=== PATIENT | male | born 1950 | race Caucasian/White ===

== ENCOUNTER 2023-05-25 15:25 | Outpatient (OUT) | payer MEDICARE, SELFPAY ==
[2023-05-25 15:44] LABS: Basophils Absolute Auto 0.1 10^3/uL (0.0-0.1); Basophils Percent Auto 0.8 % (0.2-2.0); Eosinophils Absolute Auto 0.6 10^3/uL (0.0-0.7); Eosinophils Percent Auto 5.9 % (0.9-7.0); Hematocrit 40.6 % (42.0-54.0); Hemoglobin 12.9 g/dL (14.0-18.0); Immature Granulocytes Pct Auto 0.9 % (0.0-0.5); Lymphocytes Absolute Auto 2.7 10^3/uL (1.2-3.8); Lymphocytes Percent Auto 25.1 % (20.5-60.0); Mean Corpuscular HGB Conc 31.8 g/dL (29.9-35.2); Mean Corpuscular Hemoglobin 28.7 pg (25.9-34.0); Mean Corpuscular Volume 90.2 fL (80.0-94.0); Mean Platelet Volume 11.5 fL (9.5-13.5); Monocytes Absolute Auto 0.7 10^3/uL (0.3-0.8); Monocytes Percent Auto 6.3 % (1.7-12.0); Neutrophils Absolute Auto 6.5 10^3/uL (1.4-6.5); Platelet Count 176 10^3/uL (150-450); Red Cell Distribution Width 15.2 % (11.0-15.0); White Blood Count 10.7 10^3/uL (4.0-11.0)
[2023-05-25 16:23] LABS: Estimated Average Glucose 123 mg/dL; Glycohemoglobin A1C 5.9 % (4.5-6.2)
[2023-05-25 16:33] LABS: Microalbumin Urine Random 21.6 mg/dL (<=30.0)
[2023-05-25 16:39] LABS: Alanine Aminotransferase 19 U/L (16-63); Albumin Globulin Ratio 0.7; Albumin Level 3.1 g/dL (3.4-5.0); Alkaline Phosphatase 114 U/L (46-116); Anion Gap 13.5; Aspartate Amino Transferase 15 U/L (15-37); Bilirubin Direct 0.1 mg/dL (0.0-0.2); Bilirubin Total 0.3 mg/dL (0.2-1.0); Calcium 8.8 mg/dL (8.5-10.1); Carbon Dioxide 25.8 mmol/L (21.0-32.0); Chloride 104 mmol/L (98-107); Chol HDL Ratio 2.9; Cholesterol 122 mg/dL (<=200); Estimated GFR (African America >60 (>=60); Estimated GFR (Non-African Ame >60 (>=60); Globulin 4.3 g/dL; Glucose 104 mg/dL (74-106); HDL Cholesterol 42 mg/dL (40-60); LDL Cholesterol Calculated 53.2 mg/dL; Potassium 4.3 mmol/L (3.5-5.1); Prostate Specific Antigen Scrn 0.57 ng/mL (<=4.00); Sodium 139 mmol/L (136-145); Total Protein 7.4 g/dL (6.4-8.2); Triglycerides 134 mg/dL (<=150); VLDL CHOLESTEROL 26.8 mg/dL
== END 2023-05-25 15:26 | disposition home or self-care (01) ==
LOC: LAB 15:29
PROVIDERS: PCP Family Medicine; Visit Provider Family Medicine
DX: E11.65 Type 2 diabetes mellitus with hyperglycemia (principal); E55.9 Vitamin D deficiency, unspecified; I10 Essential (primary) hypertension; Z79.899 Other long term (current) drug therapy; Z12.5 Encounter for screening for malignant neoplasm of prostate
CPT/HCPCS: 36415; 80048; 80061; 80076; 82043; 82306; 83036; 85025; G0103

== ENCOUNTER 2023-09-14 12:38 | Outpatient (OUT) | payer MEDICARE, SELFPAY ==
[2023-09-14 12:58] LABS: Basophils Absolute Auto 0.1 10^3/uL (0.0-0.1); Basophils Percent Auto 1.3 % (0.2-2.0); Eosinophils Absolute Auto 0.7 10^3/uL (0.0-0.7); Eosinophils Percent Auto 7.3 % (0.9-7.0); Hematocrit 40.4 % (42.0-54.0); Hemoglobin 12.5 g/dL (14.0-18.0); Immature Granulocytes Pct Auto 1.1 % (0.0-0.5); Lymphocytes Absolute Auto 2.6 10^3/uL (1.2-3.8); Lymphocytes Percent Auto 27.2 % (20.5-60.0); Mean Corpuscular HGB Conc 30.9 g/dL (29.9-35.2); Mean Corpuscular Hemoglobin 28.3 pg (25.9-34.0); Mean Corpuscular Volume 91.4 fL (80.0-94.0); Mean Platelet Volume 11.6 fL (9.5-13.5); Monocytes Absolute Auto 0.5 10^3/uL (0.3-0.8); Neutrophils Absolute Auto 5.5 10^3/uL (1.4-6.5); Neutrophils Percent Auto 58.1 % (43.0-75.0); Platelet Count 174 10^3/uL (150-450); Red Blood Count 4.42 10^6/uL (4.70-6.10); Red Cell Distribution Width 15.8 % (11.0-15.0); White Blood Count 9.4 10^3/uL (4.0-11.0)
[2023-09-14 13:25] LABS: Alanine Aminotransferase 15 U/L (16-63); Albumin Globulin Ratio 0.7; Alkaline Phosphatase 109 U/L (46-116); Anion Gap 10.8; Aspartate Amino Transferase 16 U/L (15-37); BUN Creatinine Ratio 16.7; Bilirubin Total 0.3 mg/dL (0.2-1.0); Calcium 9.1 mg/dL (8.5-10.1); Carbon Dioxide 29.5 mmol/L (21.0-32.0); Chloride 105 mmol/L (98-107); Estimated GFR (African America >60 (>=60); Estimated GFR (Non-African Ame 60 (>=60); Globulin 4.1 g/dL; Glucose 124 mg/dL (74-106); Potassium 4.3 mmol/L (3.5-5.1); Sodium 141 mmol/L (136-145); Total Protein 7.1 g/dL (6.4-8.2)
== END 2023-09-14 12:39 | disposition home or self-care (01) ==
LOC: LAB 12:38
PROVIDERS: PCP Family Medicine; Visit Provider Internal Medicine
DX: R19.7 Diarrhea, unspecified (principal)
CPT/HCPCS: 36415; 80053; 85025

== ENCOUNTER 2023-09-23 19:30 | Outpatient (REF) | payer MEDICARE, SELFPAY ==
[2023-09-24 16:53] LABS: C. Difficile PCR NEGATIVE (NEGATIVE)
[2023-09-30 17:12] LABS: Ova + Parasite Exam Final report (.)
== END 2023-09-23 19:31 | disposition home or self-care (01) ==
LOC: LAB 19:30
PROVIDERS: PCP Family Medicine; Visit Provider Internal Medicine
DX: R19.7 Diarrhea, unspecified (principal)
CPT/HCPCS: 87045; 87177; 87209; 87493

== ENCOUNTER 2024-03-14 15:40 | Outpatient (OUT) | payer MEDICARE, SELFPAY ==
[2024-03-14 16:09] LABS: Basophils Absolute Auto 0.1 10^3/uL (0.0-0.1); Basophils Percent Auto 0.9 % (0.2-2.0); Eosinophils Absolute Auto 0.7 10^3/uL (0.0-0.7); Eosinophils Percent Auto 4.5 % (0.9-7.0); Hematocrit 41.9 % (42.0-54.0); Hemoglobin 13.7 g/dL (14.0-18.0); Immature Granulocytes Abs Auto 0.16 10^3/uL (0.00-0.03); Immature Granulocytes Pct Auto 1.1 % (0.0-0.5); Lymphocytes Absolute Auto 3.8 10^3/uL (1.2-3.8); Lymphocytes Percent Auto 25.9 % (20.5-60.0); Mean Corpuscular HGB Conc 32.7 g/dL (29.9-35.2); Mean Corpuscular Hemoglobin 29.1 pg (25.9-34.0); Mean Corpuscular Volume 89.1 fL (80.0-94.0); Mean Platelet Volume 12.1 fL (9.5-13.5); Monocytes Absolute Auto 0.8 10^3/uL (0.3-0.8); Monocytes Percent Auto 5.7 % (1.7-12.0); Neutrophils Absolute Auto 9.1 10^3/uL (1.4-6.5); Neutrophils Percent Auto 61.9 % (43.0-75.0); Platelet Count 174 10^3/uL (150-450); Red Cell Distribution Width 15.7 % (11.0-15.0); White Blood Count 14.7 10^3/uL (4.0-11.0)
[2024-03-14 16:32] LABS: Anion Gap 17.1; BUN Creatinine Ratio 14.1; Calcium 9.3 mg/dL (8.5-10.1); Carbon Dioxide 23.6 mmol/L (21.0-32.0); Chloride 104 mmol/L (98-107); Estimated GFR (African America 39 (>=60); Estimated GFR (Non-African Ame 32 (>=60); Glucose 135 mg/dL (74-106); Potassium 3.7 mmol/L (3.5-5.1); Sodium 141 mmol/L (136-145)
[2024-03-14 16:52] LABS: Estimated Average Glucose 126 mg/dL
== END 2024-03-14 15:41 | disposition home or self-care (01) ==
PROVIDERS: PCP Family Medicine; Visit Provider Family Medicine
DX: E11.65 Type 2 diabetes mellitus with hyperglycemia (principal); N18.31 Chronic kidney disease, stage 3a; Z79.899 Other long term (current) drug therapy; I10 Essential (primary) hypertension
CPT/HCPCS: 36415; 80048; 83036; 85025

== ENCOUNTER 2024-12-29 15:31 | Outpatient (OUT) | payer MEDICARE, SELFPAY ==
--- OUTSIDE RECORDS SUMMARY | 2024-12-29 15:38 | XMS_ITS | Encounter Summary ---
Author Organization [facility] Address [address] [place] [address] Phone Care Team Providers Care Robot Programmer Name Role Phone Mk Nichole MD Primary Care Provider + Lesia Rhodes MD Unavailable Reason for Visit * Reason Onset Date Comments Med Refill 12/29/2024 Encounter Details Date Type Department Care Team (Late st Contact Info) Description 12/29/2024 Refill [facility] [address] [phone] Luna Maldonado RN Essential hypertension Social History Tobacco Use Types Packs/Day Years Used Date Smoking Tobacco: Every Day Cigarettes Smokeless Tobacco: Never Alcohol Use Standard Drinks/Week Comments Never 0 (1 standard drink = 0.6 oz pur e alcohol) PHQ-2 Answer Date Recorded Patient Health Questionnaire-2 Score 3 07/23/2022 Sex and Gender Information Value Date Recorded Sex Assigned at Not on file Legal Sex Male 6:45 PM EST Gender Identity Not on file Sexual Orientation Not on file documented as of this encounter Miscellaneous Notes * Telephone Encounter - Luna Maldonado RN - 12/29/2024 2:07 PM EDT Daughter, Amanda, phones requesting refills for valsartan and metoprolol. Reports pt is taking 25 mgmetoprolol. States that dose was clarified back in september that he takes 25 mg. However, when niece brought pt to appt in October she brought the incorrect med list and said pt was taking 50 mg. Daughterreports pt has continued to take 25 and has not taken 50 for many months. Orders prepped and sent to Cristina Chen NP for signature documented in this encounter Plan of Treatment Upcoming Encounters Date Type Department Care Team (Late st Contact Info) Description 05/16/2025 10:40 AM EDT Office Visit [facility] [address] [facility] [address] [place] [address] Bonifacio Stern DO [address] [facility] [address] [place], [place] [id number] documented as of this encounter Visit Diagnoses Diagnosis Essential hypertension Unspecified essential hypertension documented in this encounter Additional Health Concerns Assessment Noted Time PHQ-9 Depression Total Score: 11 023 12:18 PM EST A fall risk assessment has been complete d for the patient 11/14/2024 10:16 AM EDT documented as of this encounter Care Teams Robot Programmer Relationship Specialty Start Date End Date Mk Nichole MD [address] [place] [address] PCP - General Family Medicine 11/09/23 Lesia Rhodes MD [address] [facility] [address] [place] [address] Surgeon Gastroenterology 05/19/24 documented as of this encounter
--- OUTSIDE RECORDS SUMMARY | 2024-12-29 15:38 | XMS_ITS | Encounter Summary ---
Author Organization [facility] Address [address] [place] [address] Phone Care Team Providers Care Sanitation Director Name Role Phone Mk Nichole MD Primary Care Provider + Mk Nichole MD Primary Care Provider + Lesia Rhodes MD Unavailable Encounter Details Date Type Department Care Team (Late st Contact Info) Description 08/03/2021 Orders Only [facility] [address] [place] [address] Conversion, Onbase Social History Tobacco Use Types Packs/Day Years Used Date Smoking Tobacco: Never Assessed Sex and Gender Information Value Date Recorded Sex Assigned at Not on file Legal Sex Male 6:45 PM EST Gender Identity Not on file Sexual Orientation Not on file documented as of this encounter Plan of Treatment Upcoming Encounters Date Type Department Care Team (Late st Contact Info) Description 05/16/2025 10:40 AM EDT Office Visit [facility] [address] [facility] [address] [place] [address] Bonifacio Stern DO [address] [facility] [address] [place], [place] [phone] Scheduled Orders Name Type Priority Associated Diagnoses Orde r Schedule OUTSIDE LAB SCAN Lab Ordered: 08/03/2021 OUTSIDE LAB SCAN Lab Ordered: 08/03/2021 OUTSIDE LAB SCAN Lab Ordered: 08/03/2021 documented as of this encounter Visit Diagnoses Not on filedocumented in this encounter Care Teams Sanitation Director Relationship Specialty Start Date End Date Mk Nichole MD PCP - General 10/15/21 11/08/23 Mk Nichole MD [address] [place] [address] PCP - General Family Medicine 11/09/23 Lesia Rhodes MD [address] [id number] Surgeon Gastroenterology 05/19/24 documented as of this encounter
--- OUTSIDE RECORDS SUMMARY | 2024-12-29 15:38 | XMS_ITS | Clinical Summary ---
Author Organization [facility] Address [address] [place] [address] Phone Care Team Providers Care Solderer Furnace Name Role Phone Mk Nichole MD Primary Care Provider + Lesia Rhodes MD Unavailable Allergies Active Allergy Reactions Criticality Noted Date Comments Codeine Palpitations Low 04/20/2023 Metformin Diarrhea 2023 Prednisone Other 2023 Suicidal ideation Medications cholecalciferol (Vitamin D-3) 50 MCG (1999) tablet Take 2 tablets (100 mcg) by mouth once daily. 2 Active esomeprazole (NexIUM) [address] capsule Take 1 capsule (40 mg) by mouth 2 times a day. 3 Active FeroSuL 325 mg (65 mg iron) tablet Take 1 tablet (325 mg) by mouth once daily. 3 Active HYDROcodone-acetami nophen (Crane) 5-325 mg tablet Take 1 tablet by mouth every 4 hours if needed for moderate pain (4 - 6) or severe pain (7 - 10). TAKE 1 TABLET EVERY 4 TO 6 HOURS NEEDED FOR PAIN. Active methocarbamol (Robaxin) 750 mg tablet Take 1 tablet (750 mg) by mouth 3 times a day. Active PARoxetine (Paxil) 20 mg tablet Take 1 tablet (20 mg) by mouth once daily. Active polyethylene glycol (Glycolax, Miralax) 17 gram/dose powder Mix 17 g of powder and drink once daily as needed. 3 Active tolterodine LA (Detrol LA) 2 mg 24 hr capsule Take 1 capsule (2 mg) by mouth once a day on Wednesday, Wednesday, and Wednesday. Do not crush, chew, or split. Active valsartan (Diovan) 160 mg tabletIndications:E ssential hypertension Take 1 tablet (160 mg) by mouth 2 times a day. 180 tablet 3 4 Active rosuvastatin (Crestor) 20 mg tabletIndications:T wo-vessel coronary artery disease,Mixed hyperlipidemia Take 1 tablet (20 mg) by mouth once daily. 90 tablet 3 4 Active clopidogrel (Plavix) 75 mg tabletIndications:S tatus post non-ST elevation myocardial infarction (NSTEMI) Take 1 tablet (75 mg) by mouth once daily. 90 tablet 3 4 Active potassium chloride ER (Micro-K) 10 mEq ER capsuleIndications: Two-vessel coronary artery disease Take 1 capsule (10 mEq) by mouth once daily. 90 capsule 3 4 Active metoprolol succinate XL (Toprol-XL) 50 mg 24 hr tablet Take 1 tablet (50 mg) by mouth once daily. Do not crush or chew. Active metFORMIN (Glucophage) 500 mg tablet Take 1 tablet (500 mg) by mouth 2 times daily (morning and late afternoon). Active amLODIPine (Norvasc) 5 mg tablet Take 1 tablet (5 mg) by mouth once daily. Active Active Problems Problem Noted Date Diagnosed Date Neuropathy 05/10/2024 BMI 28.0-28.9,adult 2023 Assessment & Plan (11/14/2024 1:31 PM EDT): Reviewed the merits of healthy lifestyle choices on overall cardiovascular health. AAA (abdominal aortic aneurysm) 04/20/2023 Assessment & Plan (11/14/2024 1:28 PM EDT): Routinely with vascular August 2024 ultrasound stable infrarenal aneurysm, EVAR no leak Current smoker 04/20/2023 Assessment & Plan (11/14/2024 10:35 AM EDT): 1 pack per day In past: quit for 5 years 'cold ' Continued every day tobacco use. Have reviewed the negative cardiovascular impact of nicotine. Continues to decline pharmacological assistance. 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 04/20/2023 Status post non-ST elevation myocardial infarcti on (NSTEMI) 04/20/2023 Two-vessel coronary artery disease 04/20/2023 Assessment & Plan (11/14/2024 1:30 PM EDT): Prior multivessel PCI Most recent PCI: October 2018 NSTEMI Mid LAD PCI/[place] Proximal LAD had patent stent RCA patent stent mid through distal Diagonal 100% Distal circumflex 80% was a very small vessel PLV 50-60% EF 60% July 2021 cardiac catheterization Diffuse small vessel disease Proximal/mid LAD with patent stent RCA with patent stent There was progression of PLV proximal/mid 70% Current daily activity less than 4 METS without concerning symptoms Choledocholithiasis 04/20/2023 PVD (peripheral vascular disease) 04/20/2023 Resolved Problems Problem Noted Date Diagnosed Date Resolved Date Chronic obstructive pulmonary disease (Multi) 04/20/20 23 11/14/2024 Diabetes mellitus (Multi) 04/20/2023 Overweight 04/20/2023 2023 Encounters Date Type Department Care Team Description 12/29/2024 [facility] [place] [address] [facility] [address] [place] [address] Luna Maldonado RN Essential hypertension 11/14/2024 10:00 AM EDT Office Visit [place] [id number] [facility] [address] [place] [address] Cristina Calles, OLIVE PACKER-SCOURING TRAIN OPERATOR CHIEF Essential hypertension (Primary Dx); Two-vessel coronary artery disease; Type 2 diabetes mellitus without complication, without long-term current use of insulin; Mixed hyperlipidemia; Abdominal aortic aneurysm (AAA), unspecified part, unspecified whether ruptured; BMI 28.0-28.9,adult; Current smoker 11/14/2024 Travel 10/02/2024 Telephone [facility] [address] [place] [phone] Luna Maldonado RN from Last 3 Months Immunizations Immunization Administration Dates Next Due Flu vaccine, quadrivalent, recombinant, preservative free, adult (FLUBLOK) 07/02/2022 Influenza, Unspecified 05/19/2018,2015,05/19/2015,05/19,07/19/2012,07/19/2010 Pfizer COVID-19 vaccine, biv alent, age 12 years and older (30 mcg/0.3 mL) 07/03/2022 Pneumococcal polysaccharide vaccine, 23-valent, age 2 years and older (PNEUMOVAX 23) 02/17/2016,07/19/2006 Family History Medical History Relation Name Comments Heart disease Brother coronary artery bypass graft Brother acute myocardial Father Diabetes type II Mother Relation Name Status Comments Brother Father Mother Social History Tobacco Use Types Packs/Day Years Used Date Smoking Tobacco: Every Day Cigarettes Smokeless Tobacco: Never Tobacco Cessation:Ready to Q uit: Not Asked; Counseling Given: Not Answered Alcohol Use Standard Drinks/Week Comments Never 0 (1 standard drink = 0.6 oz pur e alcohol) PHQ-2 Answer Date Recorded Patient Health Questionnaire-2 Score 3 07/23/2022 Sex and Gender Information Value Date Recorded Sex Assigned at Not on file Legal Sex Male 6:45 PM EST Gender Identity Not on file Sexual Orientation Not on file Last Filed Vital Signs Vital Sign Reading Time Taken Comments Blood Pressure 110/80 11/14/2024 10:17 AM EDT Pulse 62 11/14/2024 10:17 AM EDT Temperature 36.1 C (96.9 F) 11/19/2022 1:07 PM EDT Respiratory Rate 16 10/13/2022 1:11 PM EDT Oxygen Saturation 99% 10/13/2022 1:11 PM EDT Inhaled Oxygen Concentration - - Weight 80.7 kg (178 lb) 11/14/2024 10:17 AM EDT Height 167.6 cm (5' 6 ) 11/14/2024 10:17 AM EDT Body Mass Index 28.73 11/14/2024 10:17 AM EDT Plan of Treatment Upcoming Encounters Date Type Department Care Team (Late st Contact Info) Description 05/16/2025 10:40 AM EDT Office Visit [facility] [address] [facility] [address] [place] [address] Bonifacio Stern, [address] [facility] [address] [place], [place] [id number] Health Maintenance Due Date Last Done Comments CT Colonography 1950 Diabetes: Hemoglobin A1C 1950 Diabetes: Urine Protein Screening 1950 FIT-DNA (Cologuard) 1950 FIT 1950 Lipid Panel 1950 Medicare Annual Wellness Visit (AWV) 1950 Sigmoidoscopy 1950 Diabetes: Retinopathy Screening 1960 Hepatitis C Screening 1968 DTaP/Tdap/Td Vaccines (1 - Tdap) 1972 Zoster Vaccines (1 of 2) 2000 RSV High Risk: (Elderly (60+) or Population) (1 - Risk 60-74 years 1-dose series) 2010 Abdominal Aortic Aneurysm (AAA) Screening 11/10/2015 Pneumococcal Vaccine (2 of 2 - PCV) 02/16/2017 02/17/2016, 07/19/2006 COVID-19 Vaccine (2 - season) 2024 07/03/2022 Influenza Vaccine (Season Ended) 2025 07/02/2022, 05/19/2018, 04/18/2016, Additional history exists Colonoscopy 01/18/2034 01/19/2024 Colorectal Cancer Screening 01/18/2034 Irritable Bowel Syndrome Discontinued 12/17/2022, 09/17 HIB Vaccines Aged Out No longer eligi ble based on patient's age to complete this topic HPV Vaccines Aged Out No longer eligi ble based on patient's age to complete this topic Hepatitis A Vaccines Aged Out No long er eligible based on patient's age to complete this topic Hepatitis B Vaccines Aged Out No long er eligible based on patient's age to complete this topic IPV Vaccines Aged Out No longer eligi ble based on patient's age to complete this topic Meningococcal Vaccine Aged Out No becca vero eligible based on patient's age to complete this topic Rotavirus Vaccines Aged Out No longer eligible based on patient's age to complete this topic Procedures Procedure Name Priority Date/Time Associated Diagnosis Comments ERCP Routine 12/17/2022 9:41 AM EDT from Last 3 Months or Most Recently Relevant to Health Maintenance Results * Endoscopic Retrograde Cholangiopancreatography (ERCP) (12/17/2022 9:41 AM EDT) Anatomical Region Laterality Modality Endoscopy 12/17/2022 9:41 AM EDT Narrative 12/17/2022 10:03 AM EDT Patient Name: Gopal Irving Procedure Date: 12/17/2022 9:41 AM Date of : 1950 Admit Type: Outpatient Site: [facility] Ethnicity: Not or Race: White Attending MD: Alyssia Acuna MD, [id number] Procedure: ERCP Indications: Follow-up of bile duct stone(s), Follow-up of ascending cholangitis, Biliary stent removal Patient Profile: This is a 72 year old male. Refer to note in patient chart for documentation of history and physical. Providers: Alyssia Acuna MD (Doctor), Jeevan Mcgovern RN (Nurse), Balbina Schuler, Corporate Safety Manager Referring: Medicines: General Anesthesia Complications: No immediate complications. Procedure: Pre-Anesthesia Assessment: - Prior to the procedure, a History and Physical was performed, and patient medications and allergies were reviewed. The patient is competent. The risks and benefits of the procedure and the sedation options and risks were discussed with the patient. All questions were answered and informed consent was obtained. Patient identification and proposed procedure were verified by the physician, the nurse, the anesthesiologist, the forensics team director and the lead quality control technician in the procedure room. Mental Status Examination: alert and oriented. Airway Examination: normal oropharyngeal airway and neck mobility. Respiratory Examination: clear to auscultation. CV Examination: normal. Prophylactic Antibiotics: The patient does not require prophylactic antibiotics. Prior Anticoagulants: The patient has taken no anticoagulant or antiplatelet agents except for aspirin. ASA Grade Assessment: III - A patient with severe systemic disease. After reviewing the risks and benefits, the patient was deemed in satisfactory condition to undergo the procedure. The anesthesia plan was to use general anesthesia. Immediately prior to administration of medications, the patient was re-assessed for adequacy to receive sedatives. The heart rate, respiratory rate, oxygen saturations, blood pressure, adequacy of pulmonary ventilation, and response to care were monitored throughout the procedure. The physical status of the patient was re-assessed after the procedure. After obtaining informed consent, the scope was passed under direct vision. Throughout the procedure, the patient's blood pressure, pulse, and oxygen saturations were monitored continuously. The duodenoscope was introduced through the mouth, and advanced to the duodenum and used to inject contrast into the bile duct. The ERCP was accomplished without difficulty. The patient tolerated the procedure well. Findings: A sharepoint solutions architect film of the abdomen was obtained. Surgical clips, consistent with a previous cholecystectomy, were seen in the area of the right upper quadrant of the abdomen. A biliary stent was visible on the sharepoint solutions architect film. The esophagus was successfully intubated under direct vision. The scope was advanced from the mouth to the duodenum. The pharynx, larynx and associated structures, as well as the upper GI tract, were normal. One plastic biliary stent originating in the biliary tree was emerging from the major papilla. The stent was partially occluded. A biliary sphincterotomy had been performed. The sphincterotomy appeared open. One stent was removed from the biliary tree using a snare. A 0.025 inch x 270 cm angled Visiglide wire was passed into the biliary tree. The 11.5 mm balloon was passed over the guidewire and the bile duct was then deeply cannulated. Contrast was injected. I personally interpreted the bile duct images. Ductal flow of contrast was adequate. Image quality was adequate. Contrast extended to the entire biliary tree. Neither stones nor ductal dilatation were present in the main bile duct. The biliary tree was swept with an 11.5 mm balloon starting at the right intrahepatic duct(s). Sludge was swept from the duct. Final balloon sweeps were negative. Estimated Blood Loss: Estimated blood loss: none. Impression: - One partially occluded stent from the biliary tree was seen in the major papilla. Removed. - Prior biliary sphincterotomy appeared open. - The biliary tree was swept and sludge was found. Recommendation: - Patient has a contact number available for emergencies. The signs and symptoms of potential delayed complications were discussed with the patient. Return to normal activities tomorrow. Written discharge instructions were provided to the patient. - Written discharge instructions were provided to the patient. - Resume previous diet. - Continue present medications. Procedure Code(s): --- Professional --- 58718, Endoscopic retrograde cholangiopancreatography (ERCP); with removal of foreign body(s) or stent(s) from biliary/pancreatic duct(s) 76474, Endoscopic retrograde cholangiopancreatography (ERCP); with removal of calculi/debris from biliary/pancreatic duct(s) 34406, Endoscopic catheterization of the biliary ductal system, radiological supervision and interpretation Diagnosis Code(s): --- Professional --- T85.590A, Other mechanical complication of bile duct prosthesis, initial encounter K80.30, Calculus of bile duct with cholangitis, unspecified, without obstruction Z46.59, Encounter for fitting and adjustment of other gastrointestinal appliance and device K83.09, Other cholangitis CPT copyright 2021 [employer]. All rights reserved. The codes documented in this report are preliminary and upon refrigerating technician review may be revised to meet current compliance requirements. Attending Participation: I personally performed the entire procedure. MD Alyssia Tapia MD 12/17/2022 10:02:50 AM This report has been signed electronically. Number of Addenda: 0 Note Initiated On: 12/17/2022 9:41 AM Total Procedure Duration Time 0 hours 9 minutes 21 seconds Procedure Note Alyssia Acuna MD - 06/13/2024 Patient Name: Gopal Irving Procedure Date: 12/17/2022 9:41 AM Date of : 1950 Admit Type: Outpatient Site: [facility] Ethnicity: Not or Race: White Attending MD: Alyssia Acuna MD, [id number] Procedure: ERCP Indications: Follow-up of bile duct stone(s), Follow-up of ascending cholangitis, Biliary stent removal Patient Profile: This is a 72 year old male. Refer to note inpatient chart for documentation of history and physical. Providers: Alyssia Acuna MD (Doctor), Jeevan Mcgovern RN (Nurse), Balbina Schuler, Corporate Safety Manager Referring: Medicines: General Anesthesia Complications: No immediate complications. Procedure: Pre-Anesthesia Assessment: - Prior to the procedure, a History and Physicalwas performed, and patient medications and allergieswere reviewed. The patient is competent. The risks and benefits of the procedure and the sedation optionsand risks were discussed with the patient. Allquestions were answered and informed consent was obtained. Patient identification and proposed procedure were verified by the physician, the nurse, the anesthesiologist, the forensics team director and thetechnician in the procedure room. Mental Status Examination: alert and oriented. Airway Examination: normal oropharyngeal airway and neck mobility. Respiratory Examination: clear to auscultation. CV Examination: normal. Prophylactic Antibiotics: The patient doesnot require prophylactic antibiotics. Prior Anticoagulants: The patient has taken noanticoagulant or antiplatelet agents except for aspirin. ASAGrade Assessment: III - A patient with severe systemic disease. After reviewing the risks and benefits,the patient was deemed in satisfactory condition to undergo the procedure. The anesthesia plan was touse general anesthesia. Immediately prior to administration of medications, the patient was re-assessed for adequacy to receive sedatives. The heart rate, respiratory rate, oxygen saturations, blood pressure, adequacy of pulmonary ventilation,and response to care were monitored throughout the procedure. The physical status of the patient was re-assessed after the procedure. After obtaining informed consent, the scope waspassed under direct vision. Throughout the procedure, the patient's blood pressure, pulse, and oxygen saturations were monitored continuously. The duodenoscope was introduced through the mouth, and advanced to the duodenum and used to injectcontrast into the bile duct. The ERCP was accomplishedwithout difficulty. The patient tolerated the procedurewell. Findings: A sharepoint solutions architect film of the abdomen was obtained. Surgical clips, consistent with a previous cholecystectomy, were seen in the area of the right upper quadrant of the abdomen. A biliary stent was visible on thescout film. The esophagus was successfully intubated under direct vision.The scope was advanced from the mouth to the duodenum. The pharynx,larynx and associated structures, as well as the upper GI tract, werenormal. One plastic biliary stent originating in the biliary tree wasemerging from the major papilla. The stent was partially occluded. A biliary sphincterotomy had been performed. The sphincterotomy appeared open.One stent was removed from the biliary tree using a snare. A 0.025 inch x 270 cm angled Visiglide wire was passed into the biliary tree. The11.5 mm balloon was passed over the guidewire and the bile duct was then deeply cannulated. Contrast was injected. I personally interpretedthe bile duct images. Ductal flow of contrast was adequate. Image quality was adequate. Contrast extended to the entire biliary tree. Neither stones nor ductal dilatation were present in the main bile duct. The biliary tree was swept with an 11.5 mm balloon starting at the right intrahepatic duct(s). Sludge was swept from the duct. Final balloon sweeps were negative. Estimated Blood Loss: Estimated blood loss: none. Impression: - One partially occluded stent from the biliarytree was seen in the major papilla. Removed. - Prior biliary sphincterotomy appeared open. - The biliary tree was swept and sludge wasfound. Recommendation: - Patient has a contact number available for emergencies. The signs and symptoms of potential delayed complications were discussed with thepatient. Return to normal activities tomorrow. Written discharge instructions were provided to thepatient. - Written discharge instructions were provided tothe patient. - Resume previous diet. - Continue present medications. Procedure Code(s): --- Professional --- 09716, Endoscopic retrogradecholangiopancreatography (ERCP); with removal of foreign body(s) or stent(s) from biliary/pancreatic duct(s) 76499, Endoscopic retrogradecholangiopancreatography (ERCP); with removal of calculi/debris from biliary/pancreatic duct(s) 61839, Endoscopic catheterization of the biliary ductal system, radiological supervision and interpretation Diagnosis Code(s): --- Professional --- T85.590A, Other mechanical complication of bileduct prosthesis, initial encounter K80.30, Calculus of bile duct with cholangitis, unspecified, without obstruction Z46.59, Encounter for fitting and adjustment ofother gastrointestinal appliance and device K83.09, Other cholangitis CPT copyright 2021 [employer]. All rights reserved. The codes documented in this report are preliminary and upon refrigerating technician reviewmay be revised to meet current compliance requirements. Attending Participation: I personally performed the entire procedure. MD Alyssia Tapia MD 12/17/2022 10:02:50 AM This report has been signed electronically. Number of Addenda: 0 Note Initiated On: 12/17/2022 9:41 AM Total Procedure Duration Time 0 hours 9 minutes 21 seconds us Provation Conversion ENDOSCOPY PROCEDURE ORDERAB LES Edited Result - Final from Last 3 Months or Most Recently Relevant to Health Maintenance Insurance MEDICAID MEDICAID Care Teams Solderer Furnace Relationship Specialty Start Date End Date Mk Nichole MD [address] [place] [address] PCP - General Family Medicine 11/09/23 Lesia Rhodes MD [address] [address] Surgeon Gastroenterology 05/19/24
--- OUTSIDE RECORDS SUMMARY | 2024-12-29 15:38 | XMS_ITS | Encounter Summary ---
Author Organization [facility] Address [address] [place] [address] Phone Care Team Providers Care Treatment Plant Mechanic Name Role Phone Mk Nichole MD Primary Care Provider + Mk Nichole MD Primary Care Provider + Lesia Rhodes MD Unavailable Encounter Details Date Type Department Care Team (Late st Contact Info) Description 03/30/2022 Orders Only [facility] [address] [place] [address] Conversion, Onbase Social History Tobacco Use Types [...] 05/16/2025 10:40 AM EDT Office Visit [facility] [address] [facility] [address] [place] [address] Bonifacio Stern DO [address] [facility] [address] [place], [place] [id number] Scheduled Orders Name Type Priority Associated Diagnoses Orde r Schedule OUTSIDE LAB SCAN Lab Ordered: 03/30/2022 documented as of this encounter Visit Diagnoses Not on filedocumented in this encounter Care Teams Treatment Plant Mechanic Relationship Specialty Start Date End Date Mk Nichole MD PCP - General 10/15/21 11/08/23 kM Nichole MD [address] [place] [address] PCP - General Family Medicine 11/09/23 Lesia Rhodes MD [address] [address] Surgeon Gastroenterology 05/19/24 documented as of this encounter
--- OUTSIDE RECORDS SUMMARY | 2024-12-29 15:38 | XMS_ITS | Clinical Summary ---
Author Organization [facility] Address [address] [place], [place] [id number] Care Team Providers Care Office Electrician Name Role Phone Mk Nichole MD Primary Care Provider [phone] Social History Tobacco Use Types Packs/Day Years Used Date Smoking Tobacco: Never Assessed Sex and Gender Information Value Date Recorded Sex Assigned at Not on file Legal Sex Male 9:29 AM EDT Gender Identity Not on file Sexual Orientation Not on file Plan of Treatment Not on file Care Teams Office Electrician Relationship Specialty Start Date End Date Mk Nichole MD [address] [place] [address] PCP - General Family Medicine 02/01/24
--- OUTSIDE RECORDS SUMMARY | 2024-12-29 15:38 | XMS_ITS | Clinical Summary ---
Author Organization [facility] Address [address] [place] [address] Care Team Providers Care Lawyers Name Role Phone Unavailable Primary Care Provider Unavailabl e Social History Tobacco Use Types Packs/Day Years Used Date Smoking Tobacco: Never Assessed Sex and Gender Information Value Date Recorded Sex Assigned at Not on file Legal Sex Male 12:38 AM EST Gender Identity Not on file Sexual Orientation Not on file Plan of Treatment Not on file
--- OUTSIDE RECORDS SUMMARY | 2024-12-29 15:38 | XMS_ITS | Encounter Summary ---
Author Organization [facility] Address [address] [place] [address] Care Team Providers Care Water Control Station Engineer Name Role Phone Mk Nichole MD Primary Care Provider [phone] Encounter Details Date Type Department Care Team (Late st Contact Info) Description 05/26/2024 Clinisync Result Encounter [facility] External Department Unsolicited Provider, Generic External Data Social History Tobacco Use Types Packs/Day Years Used Date Smoking Tobacco: Every Day Cigarettes Sex and Gender Information Value Date Recorded Sex Assigned at Not on file Legal Sex Male 6:49 PM EDT Gender Identity Not on file Sexual Orientation Not on file documented as of this encounter Plan of Treatment Upcoming Encounters Date Type Department Care Team (Late st Contact Info) Description 03/14/2025 1:30 PM EDT Office Visit [facility] [address] [place] [address] Mk Nichole MD [address] [place] [address] documented as of this encounter Procedures Procedure Name Priority Date/Time Associated Diagnosis Comments US RIGHT UPPER QUADRANT 05/26/2024 3:17 PM EST documented in this encounter Results * US RIGHT UPPER QUADRANT (05/26/2024 3:17 PM EST) Anatomical Region Laterality Modality Other 05/26/2024 3:17 PM EST Narrative 05/27/2024 11:39 AM EST Ok's to do RUQ per Najma Jordan with Dr. Grimes's office Interpreted By: Daniella Kelly, STUDY: US RIGHT UPPER QUADRANT; 05/26/2024 4:07 pm INDICATION: Signs/Symptoms:rule out cbd stone. ,K80.50 Calculus of bile duct without cholangitis or cholecystitis without obstruction,R14.2 Eructation,R10.9 Unspecified abdominal pain COMPARISON: None. ACCESSION NUMBER(S): [id number] ORDERING CLINICIAN: SOL GRIMES TECHNIQUE: Multiple images of the right upper quadrant were obtained. FINDINGS: LIVER: The liver measures 11.7 cm in longest axis. No definite nodules. GALLBLADDER: The gallbladder is surgically absent.. BILE DUCTS: No evidence of intra or extrahepatic biliary dilatation is identified; the common bile duct measures .4. PANCREAS: Suboptimally visualized and mostly obscured and not evaluated. RIGHT KIDNEY: The right kidney measures 10.3 cm in length. The renal cortical echogenicity and thickness are within normal limit. No hydronephrosis or renal calculi are seen. Inferior pole right renal cyst measuring approximately 38 x 34 x 35 mm. IMPRESSION: Status post cholecystectomy. Suboptimal visualization of the pancreas. Right renal cyst. MACRO: None Signed by: Daniella Kelly 05/27/2024 11:39 AM Dictation workstation: [id number] Procedure Note Radiology, Radiologist, - 05/27/2024 Ok's to do RUQ per Najma Jordan with Dr. Grimes's office Interpreted By: Daniella Kelly, STUDY: US RIGHT UPPER QUADRANT; 05/26/2024 4:07 pm INDICATION: Signs/Symptoms:rule out cbd stone. ,K80.50 Calculus of bile duct without cholangitis or cholecystitis without obstruction,R14.2 Eructation,R10.9 Unspecified abdominal pain COMPARISON: None. ACCESSION NUMBER(S): [id number] ORDERING CLINICIAN: SOL GRIMES TECHNIQUE: Multiple images of the right upper quadrant were obtained. FINDINGS: LIVER: The liver measures 11.7 cm in longest axis. No definite nodules. GALLBLADDER: The gallbladder is surgically absent.. BILE DUCTS: No evidence of intra or extrahepatic biliary dilatation is identified; the common bile duct measures .4. PANCREAS: Suboptimally visualized and mostly obscured and not evaluated. RIGHT KIDNEY: The right kidney measures 10.3 cm in length. The renal cortical echogenicity and thickness are within normal limit. No hydronephrosis or renal calculi are seen. Inferior pole right renal cyst measuring approximately 38 x 34 x 35 mm. IMPRESSION: Status post cholecystectomy. Suboptimal visualization of the pancreas. Right renal cyst. MACRO: None Signed by: Daniella Kelly 05/27/2024 11:39 AM Dictation workstation: [id number] Generic External Data Provider [facility] Final Result documented in this encounter Visit Diagnoses Not on filedocumented in this encounter Care Teams Water Control Station Engineer Relationship Specialty Start Date End Date Mk Nichole MD [address] [place] [address] PCP - General Family Medicine 09/01/23 documented as of this encounter
--- OUTSIDE RECORDS SUMMARY | 2024-12-29 15:38 | XMS_ITS | Encounter Summary ---
Author Organization [facility] Address [address] [place] [address] Phone Care Team Providers Care Clay Carman Name Role Phone Mk Nichole MD Primary Care Provider + Lesia Rhodes MD Unavailable Encounter Details Date Type Department Care Team (Late st Contact Info) Description 08/28/2024 Scanned Document [facility] [address] [place] [address] Scanning, Generic Provider Social History Tobacco Use Types Packs/Day Years [...] Description 05/16/2025 10:40 AM EDT Office Visit [facility] [address] [facility] [address] [place] [id number] Bonifacio Stern DO [address] [place] [address] Scheduled Orders Name Type Priority Associated Diagnoses Orde r Schedule Ultrasound- OnBase Scan Imaging O rdered: 08/28/2024 documented as of this encounter Visit Diagnoses Not on filedocumented in this encounter Additional Health Concerns Assessment Noted Time PHQ-9 Depression Total Score: 11 023 12:18 PM EST A fall risk assessment has been complete d for the patient 05/10/2024 11:18 AM EDT documented as of this encounter Care Teams Clay Carman Relationship Specialty Start Date End Date Mk Nichole MD [address] [place] [address] PCP - General Family Medicine 11/09/23 Lesia Rhodes MD [address] [address] Surgeon Gastroenterology 05/19/24 documented as of this encounter
--- OUTSIDE RECORDS SUMMARY | 2024-12-29 15:38 | XMS_ITS | Encounter Summary ---
Author Organization [facility] Address [address] [place] [address] Phone Care Team Providers Care Janitor Supervisor Name Role Phone Mk Nichole MD Primary Care Provider + Mk Nichole MD Primary Care Provider + Lesia Rhodes MD Unavailable Encounter Details Date Type Department Care Team (Late st Contact Info) Description 05/20/2022 Orders Only [facility] [address] [place] [address] Conversion, Onbase Social History Tobacco Use Types [...] Description 05/16/2025 10:40 AM EDT Office Visit [facility] [address] [facility] [address] [place] [address] Bonifacio Stern DO [address] [facility] [address] [place], [place] [id number] Scheduled Orders Name Type Priority Associated Diagnoses Orde r Schedule OUTSIDE LAB SCAN Lab Ordered: 05/20/2022 documented as of this encounter Visit Diagnoses Not on filedocumented in this encounter Care Teams Janitor Supervisor Relationship Specialty Start Date End Date Mk Nichole MD PCP - General 10/15/21 11/08/23 Mk Nichole MD [address] [place] [address] PCP - General Family Medicine 11/09/23 Lesia Rhodes MD [address] [address] Surgeon Gastroenterology 05/19/24 documented as of this encounter
[2024-12-29 15:58] LABS: Basophils Absolute Auto 0.1 10^3/uL (0.0-0.1); Basophils Percent Auto 0.8 % (0.2-2.0); Eosinophils Absolute Auto 0.7 10^3/uL (0.0-0.7); Eosinophils Percent Auto 5.7 % (0.9-7.0); Hematocrit 39.3 % (42.0-54.0); Hemoglobin 13.2 g/dL (14.0-18.0); Immature Granulocytes Abs Auto 0.04 10^3/uL (0.00-0.03); Immature Granulocytes Pct Auto 0.3 % (0.0-0.5); Lymphocytes Absolute Auto 3.5 10^3/uL (1.2-3.8); Lymphocytes Percent Auto 30.3 % (20.5-60.0); Mean Corpuscular HGB Conc 33.6 g/dL (29.9-35.2); Mean Corpuscular Hemoglobin 29.7 pg (25.9-34.0); Mean Corpuscular Volume 88.5 fL (80.0-94.0); Mean Platelet Volume 11.9 fL (9.5-13.5); Monocytes Absolute Auto 0.5 10^3/uL (0.3-0.8); Monocytes Percent Auto 4.7 % (1.7-12.0); Neutrophils Absolute Auto 6.7 10^3/uL (1.4-6.5); Neutrophils Percent Auto 58.2 % (43.0-75.0); Platelet Count 192 10^3/uL (150-450); Red Blood Count 4.44 10^6/uL (4.70-6.10); Red Cell Distribution Width 15.7 % (11.0-15.0); White Blood Count 11.6 10^3/uL (4.0-11.0)
[2024-12-29 16:07] LABS: Estimated Average Glucose 140 mg/dL; Glycohemoglobin A1C 6.5 % (4.5-6.2)
[2024-12-29 16:35] LABS: Alanine Aminotransferase 21 U/L (16-63); Albumin Globulin Ratio 0.8; Albumin Level 3.2 g/dL (3.4-5.0); Alkaline Phosphatase 112 U/L (46-116); Anion Gap 15.8; Aspartate Amino Transferase 16 U/L (15-37); BUN Creatinine Ratio 11.2; Bilirubin Direct 0.1 mg/dL (0.0-0.2); Bilirubin Total 0.4 mg/dL (0.2-1.0); Carbon Dioxide 24.3 mmol/L (21.0-32.0); Chloride 105 mmol/L (98-107); Cholesterol 121 mg/dL (<=200); Estimated GFR (African America >60 (>=60 mL/min/1.73m^2); Estimated GFR (Non-African Ame 56 (>=60 mL/min/1.73m^2); Globulin 3.9 g/dL; Glucose 121 mg/dL (74-106); HDL Cholesterol 41 mg/dL (40-60); Potassium 4.1 mmol/L (3.5-5.1); Sodium 141 mmol/L (136-145); Thyroid Stimulating Hormone 1.196 uIU/mL (0.358-3.740); Total Protein 7.1 g/dL (6.4-8.2); Triglycerides 213 mg/dL (<=150); VLDL CHOLESTEROL 42.6 mg/dL
== END 2024-12-29 15:32 | disposition home or self-care (01) ==
LOC: LAB 15:36
PROVIDERS: PCP Family Medicine; Visit Provider Family Medicine
DX: E78.5 Hyperlipidemia, unspecified (principal); E11.65 Type 2 diabetes mellitus with hyperglycemia; I10 Essential (primary) hypertension; Z79.899 Other long term (current) drug therapy; R53.83 Other fatigue
CPT/HCPCS: 36415; 80048; 80061; 80076; 82043; 82570; 83036; 84443; 85025

== ENCOUNTER 2024-12-30 14:01 | Outpatient (REF) | payer MEDICARE, MEDICAID, SELFPAY ==
--- OUTSIDE RECORDS SUMMARY | 2024-12-30 14:06 | XMS_ITS | CCD ---
Author Organization [facility] Care Team Providers Care Assistant Refinery Operator Name Role Phone Unavailable Unavailable Mk Garcia Unavailable MK GARCIA Primary Care Physician Tani Vargas Unavailable Maryann Casillas Unavailable Yemi Silverio Unavailable MD Mk Garcai Primary Care Provider DO Reji Barrientos Emergency Provider MD Yemi Silverio Attending Provider DO Dejuan Wolf Emergency Provider MD Mk Garcia Primary Care Provider TuDO Reji rowell Emergency Provider [phone] MD Tani Vargas Attending Provider MD Mk Garcia Primary Care Provider [phone] DO Dejuan Wolf Emergency Provider DO Reji Barrientos Emergency Provider MD Yemi Silverio Attending Provider MD Tani Vargas Attending Provider POONAM Casillas Attending Provider MD Mk Garcia Primary Care Provider MD Ubaldo Poole Admit Provider [phone] MD Yemi Silverio Other Provider DO Anton Fontenot Attending Provider [phone] DO Dejuan Wolf Emergency Provider Mk Garcia Unavailable Franky Mattson Unavailable Terri Wilder Unavailable Bonifacio Stern Unavailable EPPS ., DR MENDOZA Admitting Unavailable EPPS ., DR MENDOZA Consulting Unavailable EPPS ., DR MENDOZA Attending Unavailable NADERER, DR MK Santos Primary Care Unavailable HAILY, THERESA Admitting Unavailable HAILY, THERESA Consulting Unavailable HAILY, THERESA Attending Unavailable NADERER, DR MK Santos Primary Care Unavailable CAMILA ., LARRY Consulting Unavailable SAID, BINNAINA Consulting Unavailable SERAFIN, CHRISS Consulting Unavailable NADERER, DR MK Santos Consulting Unavailable NADERER, DR MK Santos Attending Unavailable NADERER, DR MK Santos Admitting Unavailable NADERER, DR MK Santos Primary Care Unavailable EPPS ., DR MENDOZA Admitting Unavailable EPPS ., DR MENDOZA Consulting Unavailable EPPS ., DR MENDOZA Attending Unavailable NADERER, DR MK Santos Primary Care Unavailable NADERER, DR MK Santos Primary Care Unavailable NADERER, DR MK Santos Consulting Unavailable NADERER, DR MK Santos Attending Unavailable NADERER, DR MK Santos Admitting Unavailable STACIE, KHURRAM Carlos Attending Unavailable EPPS, Reji R Attending Unavailable EPPS, Reji R Attending Unavailable EPPS, Reji R Attending Unavailable Naderer, Dr. Mk Antonio Primary Care Nadia Weber, Dr. Alyssia Weir Admitting Unavagianni Weber, Dr. Alyssia Weir Attending Nadia Weber, Dr. Alyssia Weir Referring Unavai labmatthieu Garcia, Dr. Mk Antonio Primary Care Nadia Mathis, Dr. Conley Admitting Unavailable Del, Dr. Conley Referring Unavailable Jasonullolga, Dr. Terri Sainz Attending Unav ailable Srinivasan, Dr. Franky Casper Admitting U navailable Srinivasan, Dr. Franky Casper Attending U navailable Radha, Dr. Mk Antonio Primary Care Nadia Weber, Dr. Alyssia Weir Referring Unavai lable Nadketan, Dr. Mk Antonio Primary Care Unavai labmatthieu Garcia, Dr. Mk Antonio Referring Unavai lable Naderer, Dr. Mk Antonio Primary Care Unavai labmatthieu Mattson, Dr. Franky Casper Attending U navailable VOICULESCU, HUMPHREY Attending Unavailable Radha, Dr. Mk Antonio Referring Unavai lable Radha, Dr. Mk Antonio Primary Care Unavai labmatthieu Stern, Dr. Bonifacio Azul Attending Unava ilable Jarred, Dr. Bonifacio Azul Referring Unava ilable Naderer, Dr. Mk Antonio Primary Care Maureenvai labmatthieu Stern, Dr. Boinfacio Azul Attending Unava ilable Nadketan, Dr. Mk Antonio Primary Care Unavai labmatthieu Stern, Dr. Bonifacio Azul Referring Unava ilable Naderer, Dr. Mk Antonio Primary Care Unavai labmatthieu Stern, Dr. Bonifacio Azul Attending Unava ilable Jarred, Dr. Bonifacio Azul Referring Unava ilable Traboulssi, Dr. Rios Attending Unavaila ble Radha, Dr. Mk Antonio Primary Care Unavai lable Trabcastillo, Dr. Rios Attending Unavaila ble Radha, Dr. Mk Antonio Primary Care Maureenvagianni Garcia MD, Mk Antonio Primary Care Provider U MD Mk Williamsno Primary Care Provider [phone] DO Reji Barrientos Emergency Provider [phone] MD Tani Vargas Attending Provider MD Mk Garcia Primary Care Provider DO [facility] Emergency Provider DO Anton Fontenot Admit Provider DO Anton Fontenot Attending Provider [phone] Radha SCHAFER, Mk Primary Care Provider Mk Garcia MD Primary Care Provider MD Mk Garcia Primary Care Provider [phone] MD Yemi Silverio Attending Provider Sol Rhodes MD Unavailable SOL RHODES Referring Unavailable MK GARCIA Primary Care Unavailabl e NADERER, MK CONSUELO Primary Care UnavailYemi Al Attending Unavailable Yemi Silverio Admitting Unavailable Radha, Mk Primary Care Unavailable Radha, Mk Primary Care Unavailable Maryann Casillas Attending Unavailable Maryann Casillas Admitting Unavailable Sol Rhodes MD Unavailable BONIFACIO STERN Attending Unavailable BONIFACIO STERN Referring Unavailable RADHA, MK ANTONIO Primary Care UnavailSOL Locke Attending Unavailable RADHA, MK CONSUELO Primary Care UnavailDEIRDRE Gonzalez Attending Unavailable BONIFACIO STERN Referring Unavailable NADEREMK Mathews Primary Care Unavailabl e NADERER, MK Attending Unavailable NADERER, MK Attending Unavailable NADERER, MK Attending Unavailable Allergies Allergy Classification Reported Allergen(s) Allergy Type Date of Onset Reaction(s) Facility (20 sources) Codeine; Translations: [Codeine Derivatives] Drug Allergy 04-20-20 23 Unknown (qualifier value), Palpitations, Unknown [facility] [employer] DO Work Phone: (13 sources) CODINE Propensity to adverse reactions [facility] [employer] Other (18 sources) Codeine; Translations: [Codeine] Drug Allergy 02-25-20 13 Palpitations [facility] (8 sources) metFORMIN; Translations: [METFORMIN] Drug Allergy 11-09-19 24 Diarrhea [facility] (8 sources) predniSONE; Translations: [PREDNISONE] Drug Allergy 11-09-19 24 Other [facility] Work Phone: Medications Current Medications Medication Drug Class(es) Dates Sig (Normalized) Sig (Original) acetaminophen 325 mg / HYDROcodone bitartrate 5 mg oral tablet (20 sources) Opioid Agonist Start: 11-20-2024 End: 01-05-2025 take 1 tablet by mouth four times daily as needed for pain HYDROcodone-acetamin ophen ([place]) 5-325 MG tablet Indications: Degeneration of cervical intervertebral disc Take 1 tablet by mouth 4 (four) times a day as needed for severe pain or moderate pain 120 tablet 12/06/2024 01/05/2025 Active Start: 10-26-2024 End: 11-10-2024 take 1 tablet by mouth four times daily as needed for pain HYDROcodone-acetaminophen ([place]) 5-325 MG tablet Indications: Degeneration of cervical intervertebral disc Take 1 tablet by mouth 4 (four) times a day as needed for severe pain or moderate pain for up to 15 days 60 tablet 10/26/2024 11/10/2024 Active Start: 09-04-2024 End: 09-19-2024 take 1 tablet by mouth four times daily as needed for pain HYDROcodone-acetaminophen ([place]) 5-325 MG tablet Indications: Degeneration of cervical intervertebral disc Take 1 tablet by mouth 4 (four) times a day as needed for severe pain or moderate pain for up to 15 days 60 tablet 09/04/2024 09/19/2024 Active Start: 07-10-2024 End: 08-16-2024 take 1 tablet by mouth four times daily as needed for pain HYDROcodone-acetaminophen ([place]) 5-325 MG tablet Indications: Degeneration of cervical intervertebral disc Take 1 tablet by mouth 4 (four) times a day as needed for severe pain or moderate pain for up to 15 days 60 tablet 08/01/2024 08/16/2024 Active Start: 05-31-2024 End: 06-15-2024 take 1 tablet by mouth four times daily as needed for pain HYDROcodone-acetaminophen ([place]) 5-325 MG tablet Indications: Degeneration of cervical intervertebral disc Take 1 tablet by mouth 4 (four) times a day as needed for severe pain or moderate pain for up to 15 days 60 tablet 05/31/2024 06/15/2024 Active Start: 05-01-2024 End: 05-16-2024 take 1 tablet by mouth four times daily as needed for pain HYDROcodone-acetaminophen ([place]) 5-325 MG tablet Indications: Degeneration of cervical intervertebral disc Take 1 tablet by mouth 4 (four) times a day as needed for severe pain or moderate pain for up to 15 days 60 tablet 05/01/2024 05/16/2024 Active Start: 02-16-2024 End: 04-21-2024 take 1 tablet by mouth four times daily as needed for pain HYDROcodone-acetaminophen ([place]) 5-325 MG tablet Indications: Degeneration of cervical intervertebral disc Take 1 tablet by mouth 4 (four) times a day as needed for severe pain or moderate pain for up to 15 days 60 tablet 04/06/2024 04/21/2024 Active Start: 08-03-2023 take 1 tablet by kosta th four times daily as needed for pain HYDROcodone-acetaminophen ([place]) 5-325 MG tablet Indications: Degeneration of cervical intervertebral disc Take 1 tablet by mouth 4 (four) times a day as needed for severe pain or moderate pain 60 tablet 0 08/03/2023 Active Start: 10-03-2022 End: 07-06-2023 take 1 tablet by mouth every four to six hours as needed for pain Hydrocodone-Acetaminophen 5-325 mg table t Discontinued 1 TAB PO EVERY 4-6 HOURS as needed for pain 10 October 03, 2022 July 06, 2023 1:22pm Start: 10-20-2018 End: 03-30-2022 take 1 tablet by mouth every six hours as needed for pain Hydrocodone-Acetaminophen 5-325 mg table t Active 1 TAB PO Q6H as needed for Pain 10 March 30, 2022 take 1 tablet by kosta th every four hours as needed HYDROcodone-acetaminophen ([place]) 5-325 mg tablet Take 1 tablet by mouth every 4 hours if needed for moderate pain (4 - 6) or severe pain (7 - 10). TAKE 1 TABLET EVERY 4 TO 6 HOURS NEEDED FOR PAIN. Active amLODIPine 5 mg oral tablet (16 sources) Dihydropyridine Calcium Channel Richard Start: 12-14-2024 take 1 tablet by mouth once daily amLODIPine (Norvasc) 5 MG tablet Indications: Essential hypertension, benign TAKE 1 TABLET BY MOUTH DAILY 30 tablet 3 12/14/2024 Active Start: 09-18-2024 take 1 tablet by kosta th once daily amLODIPine (Norvasc) 5 MG tablet Indications: Essential hypertension, benign (CMS/HCC) TAKE 1 TABLET BY MOUTH DAILY 30 tablet 3 09/18/2024 Active Start: 04-11-2024 End: 09-04-2024 take 1 tablet by mouth once daily amLODIPine (Norvasc) 5 MG tablet Indications: Essential hypertension, benign (CMS/HCC) Take 1 tablet (5 mg) by mouth Daily 30 tablet 3 09/04/2024 Active amoxicillin 875 mg / clavulanate 125 mg oral tablet (1 source) Penicillin-class Antibacterial Start: 10-08-2022 End: 10-15-2022 take 1 tablet by mouth twice daily at mealtime amoxicillin-clavulanate 875 mg-125 mg oral tablet ; 1 tab(s) orally 2 times a day Quantity: 16 Refills: 0 Ordered: 08-Oct-2022 GregvíctorHolland Start: 08-Oct-2022 End: 15-Oct-2022 Generic Substitution Allowed Comments: Finish all this medication unless otherwise directed by prescriber.Take with food or milk. Comment on above: Finish all this medication unless otherw ise directed by prescriber.Take with food or milk. aspirin 81 mg chewable tablet (20 sources) Platelet Aggregation Inhibitor, Nonsteroidal Anti-inflammatory Drug Start: 10-20-2018 take 1 tablet by mouth once daily Aspirin 81 mg Tablet,Chewable Active 81 MG PO Daily October 19, 2018 11:00pm take 1 tablet by mouth in the mo rning Aspirin Low Dose 81 MG EC tablet Take 1 tablet by mouth in the morning. Active Aspirin 81 mg Tab-Chew (2 sources) Start: 11-04-2020 Aspirin 81 mg Tab-Chew mg tab(s), Chewed, Daily, Refills(s) 0 Start Date: 11/04/20 Status: Ordered Blood Glucose Monitoring Sup pl (Blood Glucose Monitor System) w/Device kit (20 sources) Blood Glucose Mo nitoring Suppl (Blood Glucose Monitor System) w/Device kit 1 Device Daily as needed Active Blood Glucose Mo nitoring Suppl (Blood Glucose Monitor System) w/Device kit 1 Device Daily as needed 0 Active calcium polycarbophil 625 mg oral tablet (3 sources) Start: 07-29-2023 End: 07-28-2024 take 2 tablets by mouth in the morning polycarbophil (FiberCon) 625 MG tablet Indications: Constipation due to opioid therapy Take 2 tablets (1,250 mg) by mouth in the morning. 60 tablet 5 07/29/2023 07/28/2024 Active celecoxib 200 mg oral capsule (10 sources) Nonsteroidal Anti-inflammatory Drug take 1 capsule by mouth in the morning celecoxib (CeleBREX) 200 MG capsule Take 1 capsule by mouth in the morning. 0 Active take 1 capsule by mo [facility] every twenty-four hours CeleBREX 100 mg 1 capsule Orally Daily Not-Taking cholecalciferol 0.05 mg oral tablet (20 sources) Vitamin D Start: 10-16-2024 take 1 tablet by mouth once daily cholecalciferol (Vitamin D-3) 50 MCG (2000 UT) tablet Indications: Vitamin D deficiency Take 1 tablet (50 mcg) by mouth Daily 90 tablet 3 10/16/2024 Active Start: 01-19-2024 take 1 tablet by kosta th once daily Cholecalciferol (Vitamin D3) 50 mcg (2,000 unit) tablet Active 2000 UNIT PO Daily January 18, 2024 11:00pm Start: 12-10-2023 take 1 tablet by kosta th once daily cholecalciferol (Vitamin D-3) 50 MCG (1999 UT) tablet Indications: Vitamin D deficiency Take 1 tablet (50 mcg) by mouth Daily 90 tablet 3 12/10/2023 Active Start: 05-25-2022 take 2 tablets by mo uth once daily cholecalciferol (Vitamin D-3) 50 MCG (1999 UT) tablet Take 2 tablets (100 mcg) by mouth once daily. 05/25/2022 Active Start: 05-25-2022 take 2 tablets by mo uth once daily cholecalciferol (Vitamin D-3) 50 MCG (2000 UT) tablet Take 2 tablets (4,000 Units) by mouth once daily. 05/25/2022 Active Start: 10-10-2021 End: 2023 take 1 tablet by mouth once daily cholecalciferol (Vitamin D-3) 50 MCG (2000 UT) tablet Take 1 tablet (50 mcg) by mouth once daily. 10/10/2021 2023 Discontinued (Dose adjustment) cholestyramine resin 4000 mg powder for oral suspension (20 sources) Bile Acid Sequestrant Start: 12-10-2023 cholestyramine (Questran) 4 GM/DOSE powder Indications: Diarrhea, unspecified type Take 1 packet (4 g) by mouth in the morning and 1 packet (4 g) at noon and 1 packet (4 g) in the evening. Take with meals. 90 packet 3 12/10/2023 Active clopidogrel 75 mg oral tablet (20 sources) [id number] Platelet Inhibitor Start: 05-16-2024 take 1 tablet by mouth once daily clopidogrel (Plavix) 75 mg tablet Indications: Status post non-ST elevation myocardial infarction (NSTEMI) Take 1 tablet (75 mg) by mouth once daily. 90 tablet 3 05/16/2024 Active Start: 10-15-2021 take 1 tablet by kosta th once daily clopidogrel (Plavix) 75 mg tablet Take 1 tablet (75 mg) by mouth once daily. 10/15/2021 Active Start: 10-18-2019 Plavix Oral, R efills(s) 0 Start Date: 10/18/19 Status: Ordered Start: 10-20-2018 End: 08-03-2021 take 1 tablet by mouth once daily Clopidogrel (Plavix) 75 mg Tablet Discontinued 75 MG PO Daily October 19, 2018 11:00pm August 03, 2021 7:32am Plavix Not-Takin g/PRN Plavix Not-Takin g Plavix Active clotrimazole 10 mg/ml topical cream (11 sources) Azole Antifungal Start: 06-12-2024 clotrimazole (Lotrimin) 1 % cream Indications: Tinea cruris Apply topically 2 (two) times a day 30 g 2 06/12/2024 Active Start: 05-24-2024 clotrimazole ( Lotrimin) 1 % cream Indications: Tinea cruris Apply topically 2 (two) times a day 30 g 2 05/24/2024 Active esomeprazole 40 mg delayed release oral capsule (20 sources) Proton Pump Inhibitor Start: 03-30-2022 take 1 capsule by mouth twice daily esomeprazole (NexIUM) [address] capsule Indications: Gastro-esophageal reflux disease without esophagitis TAKE 1 CAPSULE BY MOUTH TWICE DAILY 180 capsule 3 06/19/2024 Active Esomeprazole Sod ium Active take 1 capsule by mo [facility] every twenty-four hours NexIUM 40 MG 1 capsule Orally Once a day Not-Taking ferrous sulfate 325 mg oral tablet (20 sources) Start: 07-06-2023 Ferrous Sulfat e (Ferosul) 325 mg (65 mg iron) tablet Active 65 MG PO Daily July 06, 2023 12:00am Start: 07-06-2023 Ferrous Sulfat e (Ferosul) 325 mg (65 mg iron) tablet Active 65 MG PO Daily July 06, 2023 1:00am Start: 10-23-2022 take 1 tablet by kosta th once daily FeroSul 325 (65 Fe) MG tablet Indications: Other iron deficiency anemias TAKE 1 TABLET BY MOUTH DAILY 90 tablet 3 09/18/2024 Active Start: 10-23-2022 take 1 tablet by kosta th once daily FeroSul 325 (65 Fe) MG tablet Indications: Other iron deficiency anemias TAKE 1 TABLET BY MOUTH DAILY 90 tablet 3 07/20/2023 Active Start: 03-30-2022 End: 10-03-2022 take 1 capsule by mouth once daily Ferrous Sulfate 325 mg (65 mg iron) Capsule, Extended Release Discontinued 65 MG PO Daily March 29, 2022 11:00pm October 03, 2022 6:38pm Start: 03-30-2022 End: 10-03-2022 take 65 mg by mouth once daily Ferrous Sulfate Discont inued 65 MG PO Daily March 29, 2022 11:00pm October 03, 2022 6:38pm Start: 03-30-2022 End: 10-03-2022 take 65 mg by mouth once daily Ferrous Sulfate Discont inued 65 MG PO Daily March 30, 2022 12:00am October 03, 2022 7:38pm Start: 03-30-2022 take 65 mg by mouth once daily Ferrous Sulfate Active 65 MG PO Daily March 29, 2022 11:00pm Start: 03-30-2022 take 65 mg by mouth once daily Ferrous Sulfate Active 65 MG PO Daily March 30, 2022 12:00am fluticasone propionate 0.05 mg/actuat metered dose nasal spray (20 sources) Corticosteroid Start: 05-10-2024 take 2 spray(s) nasal route once daily as needed for rhinitis fluticasone (Flonase) 50 MCG/ACT nasal spray Indications: Sinus congestion Administer 2 (TWO) sprays into each nostril Daily as needed for rhinitis Shake gently. Before first use, prime pump. After use, clean tip and replace cap 16 g 3 05/10/2024 Active Start: 01-19-2024 Fluticasone Pr opionate 50 mcg/actuation spray,suspension Active 1 SPRAY INTRANASAL Daily as needed for allergy symptoms January 18, 2024 11:00pm Start: 09-01-2023 take 2 spray(s) nasa l route once daily as needed for rhinitis fluticasone (Flonase) 50 MCG/ACT nasal spray Indications: Sinus congestion Administer 2 sprays into each nostril Daily as needed for rhinitis Shake gently. Before first use, prime pump. After use, clean tip and replace cap. 16 g 3 09/01/2023 Active hydroCHLOROthiazide 25 mg oral tablet (15 sources) Thiazide Diuretic Start: 07-05-2023 End: 05-10-2024 take 1 tablet by mouth once daily Hydrochlorothiazide 25 mg tablet Active 25 MG PO Daily July 07, 2023 12:00am hydroCHLOROthiaz estelle Active Iron (8 sources) Iron Active isopropyl alcohol 0.7 ml/ml medicated pad (20 sources) Alcohol Swabs (Alcohol Pads) 70 % pads 1 each Daily as needed Active meclizine hydrochloride 25 mg oral tablet (9 sources) Antiemetic Start: 12-06-2024 take 1 tablet by mouth four times daily as needed for dizziness meclizine (Antivert) 25 MG tablet Indications: Vertigo Take 1 tablet (25 mg) by mouth 4 (four) times a day as needed for dizziness 30 tablet 2 12/06/2024 Active Start: 12-06-2024 take 1 tablet by kosta th four times daily as needed for dizziness meclizine (Antivert) 25 MG tablet Indications: Vertigo Take 1 tablet (25 mg) by mouth 4 (four) times a day as needed for dizziness 30 tablet 2 12/06/2024 Active Start: 09-28-2021 End: 11-14-2024 take 1 tablet by mouth every six hours as needed meclizine (Antivert) 25 mg tablet Take 1 tablet (25 mg) by mouth every 6 hours if needed for dizziness. 09/28/2021 11/14/2024 Discontinued (Discontinued by another clinician) 24 hr metFORMIN hydrochloride 500 mg extended release oral tablet (20 sources) Biguanide Start: 12-14-2024 take 1 tablet by mouth twice daily metFORMIN XR (Glucophage-XR) 500 MG 24 hr tablet Indications: Type 2 diabetes mellitus without complications (HCC) TAKE 1 TABLET BY MOUTH TWICE DAILY 180 tablet 3 12/14/2024 Active Start: 12-15-2023 take 1 tablet by kosta th twice daily metFORMIN XR (Glucophage-XR) 500 MG 24 hr tablet Indications: Type 2 diabetes mellitus without complications TAKE 1 TABLET BY MOUTH TWICE DAILY 180 tablet 3 12/15/2023 Active Start: 10-18-2019 metformin Oral , Refills(s) 0 Start Date: 10/18/19 Status: Ordered Start: 10-22-2018 End: 01-19-2024 take 1 tablet by mouth twice daily Metformin 500 mg Tablet Discontinued 500 MG PO Twice daily July 27, 2021 12:00am January 19, 2024 9:20am Start: 10-20-2018 End: 10-22-2018 take 1 tablet by mouth once daily Metformin 500 mg Tablet Discontinued 500 MG PO Daily October 19, 2018 11:00pm October 22, 2018 10:51am End: 09-01-2023 take 1 tablet by mouth every twenty-four hours in the morning metFORMIN XR (Glucophage-XR) 500 MG 24 hr tablet Take 1 tablet by mouth in the morning and 1 tablet before bedtime. 0 09/01/2023 Discontinued take 1 tablet by kosta th every twelve hours at mealtime metFORMIN HCl - 500 MG Oral Tablet TAKE 1 TABLET EVERY 12 HOURS WITH FOOD. Quantity: 0 Refills: 0 Ordered: 19-Nov-2022 DO Active take 1 tablet by kosta th twice daily metFORMIN 500 mg oral tablet, extended release ; 1 tab(s) orally 2 times a day Quantity: 0 Refills: 0 Ordered: 05-Oct-2022 Meera Franks Generic Substitution Allowed methocarbamol 750 mg oral tablet (20 sources) Muscle Relaxant Start: 10-20-2018 take 1 tablet by mouth three times daily as needed for muscle spasms Methocarbamol 750 mg tablet Active 750 MG PO Three times daily as needed for Muscle Spasm October 19, 2018 11:00pm take 1 tablet by kosta th every four hours Methocarbamol 750 MG 1 tablet Orally jenise ry 4 hrs Active 24 hr metoprolol succinate 25 mg extended release oral tablet (20 sources) beta-Adrenergic Richard Start: 05-16-2024 End: 11-14-2024 take 1 tablet by mouth every twenty-four hours in the morning metoprolol succinate XL (Toprol-XL) 25 mg 24 hr tablet Indications: Essential hypertension , Status post non-ST elevation myocardial infarction (NSTEMI) Take 1 tablet (25 mg) by mouth early in the morning.. 90 tablet 3 05/16/2024 11/14/2024 Discontinued (Discontinued by another clinician) Start: 03-15-2024 End: 03-15-2025 take 1 tablet by mouth once daily metoprolol succinate XL (Toprol-XL) 25 MG 24 hr tablet Indications: Essential hypertension, benign Take 1 tablet (25 mg) by mouth Daily 30 tablet 11 03/15/2024 03/15/2025 Active Start: 06-23-2023 take 1 tablet by kosta th every twenty-four hours in the morning metoprolol succinate XL (Toprol-XL) 25 mg 24 hr tablet Take 1 tablet (25 mg) by mouth early in the morning.. 03/15/2024 Active Start: 09-29-2022 End: 11-08-2024 take 1 tablet by mouth once daily Metoprolol Succinate 50 mg Tablet Extended Release 24 Hr Active 50 MG PO Daily 30 September 28, 2022 11:00pm Start: 09-25-2021 End: 2023 take 1 tablet by mouth once daily Metoprolol Succinate (Toprol Xl) 25 mg Tablet Extended Release 24 Hr Discontinued 25 MG PO Daily February 09, 2022 11:00pm September 29, 2022 10:19am Start: 10-18-2019 Toprol-XL Oral , Daily, Refills(s) 0 Start Date: 10/18/19 Status: Ordered Start: 10-20-2018 End: 09-04-2021 take 1 tablet by mouth once daily Metoprolol Succinate (Toprol Xl) 50 mg Tablet Extended Release 24 Hr Discontinued 50 MG PO Daily October 19, 2018 11:00pm September 04, 2021 2:28pm End: 2023 take 1 tablet by mouth twice daily metoprolol succinate XL (Toprol-XL) 25 mg 24 hr tablet Take 1 tablet (25 mg) by mouth 2 times a day. 2023 Discontinued (Dose adjustment) take 1 tablet by kosta th every twenty-four hours Metoprolol Succinate ER 50 MG Oral Tablet Extended Release 24 Hour Quantity: 0 Refills: 0 Ordered: 19-Nov-2022 DO Active take 1 tablet by kosta th every twenty-four hours Toprol XL 50 MG 1 tablet Orally Once a day TAKES MEDICATION BID Active ofloxacin 3 mg/ml ophthalmic solution (4 sources) Quinolone Antimicrobial Start: 09-12-2021 End: 2023 take 1-2 drop(s) into the eye(s) every two hours ofloxacin (Ocuflox) 0.3 % ophthalmic solution Administer 1-2 drops into affected eye(s) every 2 hours. INITIALLY 1-2 DROPS IN AFFECTED EYE(S) EVERY 2-3 HOURS DURING THE DAY. 09/12/2021 2023 Discontinued (Therapy completed) Start: 09-12-2021 Ofloxacin 0.3 % Ophthalmic Solution INITIALLY 1-2 DROPS IN AFFECTED EYE(S) EVERY 2-3 HOURS DURING THE DAY. Quantity: 0 Refills: 0 Ordered: 12-Sep-2021 DO Start : 12-Sep-2021 Active omeprazole 40 mg delayed release oral capsule (20 sources) Proton Pump Inhibitor Start: 02-19-2022 take 1 capsule by mouth once daily Omeprazole 40 MG 1 capsule 30 minutes before morning meal Orally Once a day for 30 day(s) Feb, Active Start: 10-18-2019 Prilosec Oral, Daily, Refills(s) 0 Start Date: 10/18/19 Status: Ordered End: 2023 take 1 capsule by mouth twice daily omeprazole (PriLOSEC) [address] capsule Take 1 capsule (20 mg) by mouth 2 times a day. 2023 Discontinued (Therapy completed) take 1 capsule by mo [facility] once daily PriLOSEC 20 MG 1 capsule Orally Once a day Not-Taking take 1 tablet by kosta once daily Omeprazole Magnesium 20 MG 1 tablet 30 minutes before morning meal Orally Once a day Not-Taking oxyCODONE hydrochloride 10 mg oral tablet (1 source) Opioid Agonist Start: 10-08-2022 End: 10-10-2022 take 1 tablet by mouth every six hours oxyCODONE 10 mg oral tablet ; 1 tab(s) orally every 6 hours as needed for severe pain Quantity: 12 Refills: 0 Ordered: 08-Oct-2022 Holland Cooper Start: 08-Oct-2022 End: 10-Oct-2022 Generic Substitution Allowed Comments: Caution federal law prohibits the transfer of this drug to any person other than the person for whom it was prescribed.Check with your doctor before becoming .Do not drink alcoholic beverages when taking this medication.May cause drowsiness or dizziness.This drug may impair the ability to drive or operate machinery. Use care until you become familiar with its effects.This prescription cannot be refilled.Using more of this medication than prescribed may cause serious breathing problems. Comment on above: Caution federal law prohibits the transfer of this drug to any person other than the person for whom it was prescribed.Check with your doctor before becoming .Do not drink alcoholic beverages when taking this medication.May cause drowsiness or dizziness.This drug may impair the ability to drive or operate machinery. Use care until you become familiar with its effects.This prescription cannot be refilled.Using more of this medication than prescribed may cause serious breathing problems. PARoxetine hydrochloride 20 mg oral tablet (20 sources) Serotonin Reuptake Inhibitor Start: 10-18-2019 Paxil Oral, Daily, Refills(s) 0 Start Date: 10/18/19 Status: Ordered Start: 10-20-2018 take 1 tablet by kosta once daily PARoxetine (Paxil) 20 MG tablet Indications: Depression, unspecified TAKE 1 TABLET BY MOUTH DAILY 90 tablet 3 06/19/2024 Active polyethylene glycol 3350 84422 mg powder for oral solution (20 sources) Osmotic Laxative Start: 02-19-2022 End: 07-06-2023 take 17 g by mouth every twenty-four hours as needed polyethylene glycol (Glycolax, Miralax) 17 gram/dose powder Mix 17 g of powder and drink once daily as needed. 10/12/2022 Active Start: 10-22-2018 End: 02-10-2022 Polyethylene Glycol 3350 (Mi ralax) 17 gram/dose powder Discontinued 17 GM PO Twice daily as needed for constipation 119 October 22, 2018 10:50am February 10, 2022 12:01pm MiraLax Not-Taki ng MiraLax Active Potassium (2 sources) Potassium Active potassium chloride 10 meq extended release oral capsule (20 sources) Start: 07-05-2023 take 1 capsule by mouth in the morning potassium chloride ER (Micro-K) 10 MEQ ER capsule Take 1 capsule by mouth in the morning. 07/05/2023 Active prednisoLONE acetate 10 mg/ml ophthalmic suspension (4 sources) Corticosteroid Start: 09-12-2021 End: 2023 take 1 drop(s) into the eye(s) four times daily prednisoLONE acetate (Pred-Forte) 1 % ophthalmic suspension Administer 1 drop into affected eye(s) 4 times a day. 09/12/2021 2023 Discontinued (Therapy completed) Start: 09-12-2021 take 1 drop(s) into the eye(s) four times daily prednisoLONE Acetate 1 % Ophthalmic Suspension INSTILL 1 DROP INTO AFFECTED EYE(S) 4 TIMES DAILY. Quantity: 0 Refills: 0 Ordered: 12-Sep-2021 DO Start : 12-Sep-2021 Active rosuvastatin calcium 40 mg oral tablet (20 sources) HMG-CoA Reductase Inhibitor Start: 06-23-2023 take 1 tablet by mouth in the morning rosuvastatin (Crestor) 40 MG tablet Take 1 tablet by mouth in the morning. 06/23/2023 Active Start: 09-25-2022 End: 2023 take 0.5 tablet by mouth once daily rosuvastatin (Crestor) 40 mg tablet Take 0.5 tablets (20 mg) by mouth once daily. 09/25/2022 2023 Discontinued (Reorder) Start: 10-18-2019 Crestor Oral, Daily, Refills(s) 0 Start Date: 10/18/19 Status: Ordered Start: 10-20-2018 End: 2023 take 1 tablet by mouth once daily rosuvastatin (Crestor) 20 mg tablet Indications: Two-vessel coronary artery disease , Mixed hyperlipidemia Take 1 tablet (20 mg) by mouth once daily. 90 tablet 3 2023 Active Crestor Not-Taki ng/PRN Crestor Not-Taki ng Crestor Active tiZANidine 4 mg oral tablet (20 sources) Central alpha-2 Adrenergic Agonist Start: 12-14-2024 take 1 tablet by mouth three times daily as needed tiZANidine (Zanaflex) 4 MG tablet Indications: DDD (degenerative disc disease), lumbar TAKE 1 TABLET BY MOUTH THREE TIMES DAILY NEEDED 90 tablet 3 12/14/2024 Active Start: 09-18-2024 take 1 tablet by kosta th three times daily as needed for muscle spasms tiZANidine (Zanaflex) 4 MG tablet Indications: DDD (degenerative disc disease), lumbar TAKE 1 TABLET BY MOUTH THREE TIMES DAILY NEEDED FOR MUSCLE SPASMS 90 tablet 3 09/18/2024 Active Start: 06-19-2024 take 1 tablet by kosta th three times daily as needed for muscle spasms tiZANidine (Zanaflex) 4 MG tablet Indications: DDD (degenerative disc disease), lumbar TAKE 1 TABLET BY MOUTH THREE TIMES DAILY NEEDED FOR MUSCLE SPASMS 90 tablet 3 06/19/2024 Active Start: 12-10-2023 take 1 tablet by kosta th three times daily for muscle spasms tiZANidine (Zanaflex) 4 MG tablet Indications: DDD (degenerative disc disease), lumbar TAKE 1 TABLET BY MOUTH THREE TIMES DAILY FOR MUSCLE SPASMS 90 tablet 3 03/15/2024 Active 24 hr tolterodine tartrate 2 mg extended release oral capsule (20 sources) Cholinergic Muscarinic Antagonist Start: 01-19-2024 take 1 capsule by mouth every twenty-four hours Tolterodine 2 mg capsule,extended release 24hr Active 2 MG PO every Wednesday, Wednesday, and Thursday January 18, 2024 11:00pm Start: 01-19-2024 take 2 mg by mouth once Tolter odine Active 2 MG PO every Wednesday, Wednesday, and Friday January 19, 2024 12:00am Start: 02-10-2022 End: 01-19-2024 take 1 tablet by mouth once Tolterodine 2 mg tablet Di scontinued 2 MG PO every Wednesday, Wednesday, and Wednesday February 09, 2022 11:00pm January 19, 2024 9:21am Start: 12-24-2021 End: 2023 take 1 capsule by mouth every other day tolterodine LA (Detrol LA) 2 MG 24 hr capsule Take 1 capsule by mouth every other day 12/24/2022 Active Start: 10-20-2018 End: 09-04-2021 take 1 capsule by mouth once daily Tolterodine 2 mg capsule,extended release 24hr Discontinued 2 MG PO Daily October 19, 2018 11:00pm September 04, 2021 2:28pm take 1 tablet by kosta th every twelve hours Tolterodine Tartrate 2 MG 1 tablet Orally Twice a day Active valsartan 160 mg oral tablet (20 sources) Angiotensin 2 Receptor Richard Start: 06-23-2023 take 1 tablet by mouth in the morning valsartan (Diovan) 160 MG tablet Take 1 tablet by mouth in the morning and 1 tablet before bedtime. 06/23/2023 Active Start: 05-03-2023 End: 2023 take 1 tablet by mouth twice daily valsartan (Diovan) 160 mg tablet Indications: Essential hypertension Take 1 tablet (160 mg) by mouth 2 times a day. 180 tablet 3 2023 Active Start: 04-13-2023 take 1 tablet by kosta th twice daily Valsartan 160 MG Oral Tablet TAKE 1 TABLET TWICE DAILY. Quantity: 28 Refills: 0 Ordered: 13-Apr-2023 Bonifacio Stern DO Start : 13-Apr-2023 Active new dose. Start: 03-03-2023 take 1 tablet by kosta th once daily Valsartan 320 MG Oral Tablet TAKE 1 TABLET DAILY. Quantity: 90 Refills: 3 Ordered: 03-Mar-2023 Bonifacio Stern DO Start : 03-Mar-2023 Active Start: 10-20-2022 take 1 tablet by kosta th once daily Valsartan 160 MG Oral Tablet TAKE 1 TABLET BY MOUTH EVERY DAY Quantity: 90 Refills: 3 Ordered: 20-Oct-2022 Bonifacio Stern DO Start : 20-Oct-2022 Active stop Losartan/ new start Valsartan Active Completed/Discontinued Medications Medication Drug Class(es) Dates Sig (Normalized) Sig (Original) docusate sodium 50 mg / sennosides, senior care 8.6 mg oral tablet (7 sources) Start: 10-24-2014 take 8.6-50 mg by mouth at bedtime Senokot S 8.6-50 MG 2 tabletS Orally AT BEDTIME for 30 day(s) Oct, Not-Taking Klpxssridao-IQPO-A ietary Prod 5-500 MG (7 sources) Hydrocodone-APAP -D ietary Prod 5-500 MG Orally Not-Taking 12 hr hyoscyamine sulfate 0.375 mg extended release oral tablet (7 sources) Start: 07-18-2014 take 1 tablet by mouth every twelve hours Levbid 0.375 MG 1 tablet Orally BID for 30 day(s) Jun, Not-Taking linaclotide 0.29 mg oral capsule (7 sources) Guanylate Cyclase-C Agonist Start: 09-21-2014 take 1 capsule by mouth every twenty-four hours Linzess 290 MCG 1 capsule Orally Once a day for 30 day(s) Sep, Not-Taking losartan potassium 50 mg oral tablet (20 sources) Angiotensin 2 Receptor Richard Start: 09-29-2022 End: 2023 take 1 tablet by mouth once daily Losartan 50 mg Tablet Discontinued 50 MG PO Daily September 28, 2022 11:00pm July 06, 2023 1:22pm Start: 02-10-2022 End: 2023 take 1 tablet by mouth once daily Losartan (Cozaar) 25 mg Tablet Discontinued 25 MG PO Daily February 09, 2022 11:00pm September 29, 2022 10:19am Start: 02-10-2022 take 1 tablet by kosta th twice daily Losartan (Cozaar) 25 mg Tablet Active 25 MG PO Twice daily February 09, 2022 11:00pm Start: 10-18-2019 Cozaar Oral, D frany, Refills(s) 0 Start Date: 10/18/19 Status: Ordered Start: 10-20-2018 End: 09-04-2021 take 1 tablet by mouth once daily Losartan (Cozaar) 100 mg Tablet Discontinued 100 MG PO Daily October 19, 2018 11:00pm September 04, 2021 2:27pm Start: 10-20-2018 End: 10-20-2018 take 1 tablet by mouth once daily Losartan 50 mg tablet Discontinued 50 MG PO Daily October 19, 2018 11:00pm October 20, 2018 12:28am Cozaish Not-Takin g/PRN Cozaish Not-Takin g Cozaar Active mesalamine 1200 mg delayed release oral tablet (7 sources) Aminosalicylate Start: 08-22-2014 take 2 tablets by mouth once daily Lialda 1.2 GM 2 TABS Orally daily for 30 day(s) Aug, Not-Taking 24 hr nicotine 0.875 mg/hr transdermal system (7 sources) Cholinergic Nicotinic Agonist Start: 09-29-2022 End: 10-03-2022 apply 1 dose transdermal route every twenty-four hours Nicotine 21 mg/24 hr Patch 24 Hour Discontinued 1 PATCH TRANSDERML Daily September 28, 2022 11:00pm October 03, 2022 6:39pm Start: 09-29-2022 End: 10-03-2022 apply 1 dose transdermal route once daily Nicotine Discontinued 1 PATCH TRANSDERML Daily September 29, 2022 12:00am October 03, 2022 7:39pm Omeprazole Magnesium (Prilosec Otc) 20 mg Tablet,Delayed Release (Dr/Ec) (15 sources) Start: 10-20-2018 End: 02-10-2022 take 1 tablet by mouth once daily Omeprazole Magnesium (Prilosec Otc) 20 mg Tablet,Delayed Release (Dr/Ec) Discontinued 20 MG PO Daily October 19, 2018 11:00pm February 10, 2022 12:00pm Start: 10-20-2018 End: 02-10-2022 take 1 tablet by mouth once daily Omeprazole Magnesium (Prilosec Otc) 20 mg Tablet,Delayed Release (Dr/Ec) Discontinued 20 MG PO Daily October 20, 2018 12:00am February 10, 2022 1:00pm ondansetron 4 mg oral tablet (7 sources) Serotonin-3 Receptor Antagonist Start: 10-03-2022 End: 07-06-2023 Ondansetron Hcl 4 mg tablet Discontinued 4 MG PO every 6 to 8 hours as needed for nausea and vomiting October 02, 2022 11:00pm July 06, 2023 1:22pm pantoprazole 40 mg delayed release oral tablet (20 sources) Proton Pump Inhibitor Start: 05-20-2022 End: 2023 take 1 tablet by mouth once daily Pantoprazole (Protonix) 40 mg tablet,delayed release (DR/EC) Discontinued 40 MG PO Daily October 02, 2022 11:00pm July 06, 2023 1:22pm Start: 03-30-2022 End: 03-30-2022 take 1 tablet by mouth once daily Pantoprazole (Protonix) 40 mg Tablet,Delayed Release (Dr/Ec) Discontinued 40 MG PO Daily March 29, 2022 11:00pm March 30, 2022 12:37pm Start: 07-18-2014 End: 03-16-2022 take 1 tablet by mouth once daily Pantoprazole 40 mg tablet,delayed release (DR/EC) Discontinued 40 MG PO Daily February 09, 2022 11:00pm March 16, 2022 1:10pm End: 2023 take 1 tablet by mouth once daily before mealtime pantoprazole (ProtoNix) 20 mg EC tablet Take 1 tablet (20 mg) by mouth once daily in the morning. Take before meals. Do not crush, chew, or split. 2023 Discontinued (Therapy completed) Polyethylene Glycol 3350 17 GM/SCOOP (1 source) Start: 02-19-2022 Polyethylene G lycol 3350 17 GM/SCOOP as directed Orally Once a day for 30 day(s) Feb, Not-Taking pravastatin sodium 40 mg oral tablet (7 sources) HMG-CoA Reductase Inhibitor take 1 tablet by mouth every twenty-four hours Pravastatin Sodium 40 MG 1 tablet Orally Once a day Not-Taking sucralfate 1000 mg oral tablet (9 sources) Aluminum Complex Sucralfate 1 GM Oral for 30 Days Not-Taking/PRN Sucralfate 1 GM Oral for 30 Days Not-Taking WHEAT DEXTRIN (7 sources) Benefiber Orally Not-Taking Problems Active Problems Problem Classification Problem Date Documented Da te Episodic/Chronic Abdominal hernia (7 sources) Hiatal hernia; Translations: [Hiatal hernia] Episodic Acute and unspecified renal failure (1 source) Acute kidney failure, unspecified; Translations: [Acute kidney failure, unspecified] Onset: 3 Episodic Acute cerebrovascular disease (3 sources) Cerebrovascular accident 03-03-2019 Chronic Acute myocardial infarction (19 sources) Myocardial infarction; Translations: [Non-ST elevation (NSTEMI) myocardial infarction] 03-03-2019 Chronic Comment on above: Problem List clean-u p per request of Phys. EHR Cmte Anal and rectal conditions (2 sources) Weak anal sphincter; Translations: [Other specified diseases of anus and rectum] 01-28-2024 Episodic Aortic; peripheral; and visceral artery aneurysms (20 sources) Abdominal aortic aneurysm; Translations: [Abdominal aneurysm without mention of rupture] Onset: 2 Resolved: 2 Chronic Comment on above: Problem List clean-u p per request of Phys. EHR Cmte Biliary tract disease (1 source) Ascending cholangitis; Translations: [Cholangitis] 10-06-2022 Chronic Calculus of urinary tract (3 sources) Kidney stone 03-03-2019 Episodic Cancer of prostate (9 sources) Malignant neoplasm of prostate; Translations: [Malignant tumor of prostate] Onset: 2 Chronic Chronic kidney disease (20 sources) Chronic kidney disease stage 3A ; Translations: [Stage 3a chronic kidney disease (HCC)] Onset: 4 07-29-2023 Chronic Chronic obstructive pulmonary disease and bronchiectasis (20 sources) Chronic obstructive lung disease; Translations: [Chronic airway obstruction, not elsewhere classified] Onset: 3 Resolved: 5 12-23-2022 Chronic Chronic obstructive pulmonary disease and bronchiectasis (3 sources) Bronchitis 03-03-2019 Episodic Coagulation and hemorrhagic disorders (15 sources) Platelet count below reference range; Translations: [Thrombocytopenia, unspecified] 09-04-2021 Chronic Complication of device; implant or graft (2 sources) Other specified complication of other internal prosthetic devices, implants and grafts, initial encounter; Translations: [Complication of surgical procedure] Onset: 3 12-23-2022 Episodic Coronary atherosclerosis and other heart disease (20 sources) 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; Translations: [Old myocardial infarction] Onset: 3 09-04-2021 Chronic Coronary atherosclerosis and other heart disease (2 sources) Presence of coronary angioplasty implant and graft; Translations: [PRESENCE COR ANGPLSTY IMPLANT AND GRAFT] Onset: 3 Episodic Deficiency and other anemia (3 sources) Iron deficiency anemia; Translations: [Iron deficiency anemia, unspecified] 10-07-2022 Episodic Deficiency and other anemia (1 source) Iron deficiency anemia, unspecified; Translations: [Iron deficiency anemia, unspecified] Onset: 3 Episodic Delirium, dementia, and amnestic and other cognitive disorders (1 source) Age-related physical debility; Translations: [Age-related physical debility] Onset: 3 Chronic Diabetes mellitus with complications (20 sources) Type 2 diabetes mellitus in obese; Translations: [Type 2 diabetes mellitus with other specified complication] Onset: 2 09-04-2021 Chronic Diabetes mellitus with complications (2 sources) Diabetes mellitus with complications 10-05-2022 Diabetes mellitus without complication (20 sources) Diabetes mellitus; Translations: [Diabetes mellitus without mention of complication, type II or unspecified type, not stated as uncontrolled] Onset: 3 Resolved: 5 12-23-2022 Chronic Disorders of lipid metabolism (20 sources) Hyperlipidemia; Translations: [Other and unspecified hyperlipidemia] Onset: 2 03-03-2019 Chronic Diverticulosis and diverticulitis (8 sources) Diverticulosis of duodenum; Translations: [Duodenal diverticulum] Onset: 3 Chronic Esophageal disorders (20 sources) Gastroesophageal reflux disease; Translations: [GERD (gastroesophageal reflux disease)] Onset: 3 03-03-2019 Chronic Essential hypertension (20 sources) Essential hypertension; Translations: [Unspecified essential hypertension] Onset: 3 03-03-2019 Chronic Fluid and electrolyte disorders (2 sources) Lactic acidosis; Translations: [Acidosis] 10-05-2022 Episodic Gastritis and duodenitis (10 sources) Gastritis; Translations: [Antral gastritis] Episodic Genitourinary symptoms and ill-defined conditions (6 sources) Urge incontinence; Translations: [Urge incontinence of urine] Onset: 2 Chronic Genitourinary symptoms and ill-defined conditions (11 sources) Poor stream of urine; Translations: [Poor urinary stream] Onset: 2 Episodic Headache; including migraine (3 sources) Migraine 03-03-2019 Chronic Headache; including migraine (10 sources) Headache; Translations: [Headache] Episodic Hyperplasia of prostate (20 sources) Benign prostatic hypertrophy with outflow obstruction; Translations: [Benign prostatic hyperplasia with lower urinary tract symptoms] Onset: 2 Chronic Malaise and fatigue (18 sources) Fatigue; Translations: [Other malaise and fatigue] Onset: 3 04-20-2023 Episodic Mood disorders (20 sources) Depressive disorder; Translations: [Recurrent major depressive episodes, mild ] Onset: 4 03-03-2019 Chronic Nausea and vomiting (3 sources) Nausea and vomiting; Translations: [Nausea with vomiting, unspecified] 07-11-2023 Episodic Nonspecific chest pain (17 sources) Chest pain; Translations: [Chest pain, unspecified] Onset: 3 09-04-2021 Episodic Comment on above: Problem List clean-u p per request of Phys. EHR Cmte Nutritional deficiencies (20 sources) Vitamin D deficiency, unspecified; Translations: [Unspecified severe protein-calorie malnutrition] Onset: 2 07-29-2023 Chronic Osteoarthritis (3 sources) Arthritis 03-03-2019 Chronic Other aftercare (2 sources) ferry terminal agent (current) use of aspirin; Translations: [INFORMATION MANAGEMENT OFFICER CURRENT USE OF ASPIRIN] Onset: 3 Episodic Other aftercare (2 sources) alf (current) use of oral hypoglycemic drugs; Translations: [NURSING HOME USE ORAL HYPOGLYCEMIC DX] Onset: 3 Episodic Other aftercare (1 source) Other snf (current) drug therapy; Translations: [OTH NURSING HOME CURRENT DRUG THERAPY] Onset: 3 Episodic Other aftercare (1 source) Long-term current use of aspirin; Translations: [ferry terminal agent (current) use of aspirin] 12-23-2022 Episodic Other aftercare (1 source) Long-term current use of oral hypoglycemic medication; Translations: [ferry terminal agent (current) use of oral hypoglycemic drugs] 12-23-2022 Episodic Other and ill-defined cerebrovascular disease (20 sources) Cerebrovascular disease; Translations: [Cerebrovascular disease, unspecified] Onset: 4 07-29-2023 Chronic Other and ill-defined heart disease (3 sources) Heart disease 03-03-2019 Chronic Other circulatory disease (6 sources) Stenosis of celiac artery; Translations: [Stricture of artery] Chronic Other circulatory disease (2 sources) Stricture of artery Chronic Other circulatory disease (2 sources) Low blood pressure; Translations: [Hypotension, unspecified] 10-05-2022 Episodic Other circulatory disease (1 source) Hypotension, unspecified; Translations: [Hypotension, unspecified] Onset: 3 Episodic Other circulatory disease (1 source) Personal history of other diseases of the circulatory system Episodic Other connective tissue disease (10 sources) Pain in right lower limb; Translations: [Pain in limb] Episodic Other disorders of stomach and duodenum (7 sources) Indigestion; Translations: [Dyspepsia] Episodic Other ear and sense organ disorders (3 sources) Hearing loss 03-03-2019 Chronic Other gastrointestinal disorders (20 sources) Constipation; Translations: [Constipation] 03-16-2022 Episodic Comment on above: Problem List clean-u p per request of Phys. EHR Cmte Other gastrointestinal disorders (1 source) Encounter for fitting and adjustment of other gastrointestinal appliance and device; Translations: [Encounter for fit/adjst of GI appliance and device] Onset: 3 Episodic Other gastrointestinal disorders (1 source) Finding of gastrointestinal device; Translations: [Encounter for fitting and adjustment of other gastrointestinal appliance and device] 06-07-2023 Episodic Other gastrointestinal disorders (3 sources) Burping; Translations: [Eructation] 05-22-2024 Episodic Other gastrointestinal disorders (2 sources) Incontinence of feces; Translations: [Full incontinence of feces] 01-28-2024 Episodic Other hematologic conditions (1 source) Other specified abnormalities of plasma proteins; Translations: [Other specified abnormalities of plasma proteins] Onset: 3 Episodic Other injuries and conditions due to external causes (3 sources) At moderate risk for fall; Translations: [History of fall] Episodic Other liver diseases (1 source) Enzyme level - finding; Translations: [Nonspecific elevation of levels of transaminase or lactic acid dehydrogenase [LDH]] 10-05-2022 Episodic Other lower respiratory disease (3 sources) History of chronic lung disease 03-03-2019 Episodic Other male genital disorders (3 sources) Impotence 03-03-2019 Chronic Other nervous system disorders (5 sources) Neuropathy; Translations: [Polyneuropathy, unspecified] Onset: 4 05-10-2024 Chronic Other nervous system disorders (2 sources) Polyneuropathy, unspecified; Translations: [Polyneuropathy, unspecified] Onset: 4 Chronic Other nutritional; endocrine; and metabolic disorders (2 sources) Obesity; Translations: [Obesity, unspecified] Chronic Other nutritional; endocrine; and metabolic disorders (1 source) Hypomagnesemia; Translations: [Hypomagnesemia] Onset: 3 Chronic Other nutritional; endocrine; and metabolic disorders (20 sources) Weight loss; Translations: [Abnormal weight loss] 09-04-2021 Episodic Other nutritional; endocrine; and metabolic disorders (8 sources) Overweight in adulthood with body mass index of 25 or more but less than 30; Translations: [Body mass index (BMI) 27.0-27.9, adult] Onset: 4 2023 Episodic Other nutritional; endocrine; and metabolic disorders (2 sources) Weight decreased; Translations: [Abnormal weight loss] 09-04-2021 Episodic Other nutritional; endocrine; and metabolic disorders (2 sources) Body mass index (BMI) 28.0-28.9, adult; Translations: [Body mass index (BMI) 28.0-28.9, adult] Onset: 5 Episodic Other screening for suspected conditions (not mental disorders or infectious disease) (16 sources) CT of abdomen abnormal; Translations: [Abnormal findings on diagnostic imaging of other abdominal regions, including retroperitoneum] Onset: 2 09-28-2022 Episodic Comment on above: Problem List clean-u p per request of Phys. EHR Cmte Pancreatic disorders (not diabetes) (9 sources) Disease of pancreas, unspecified; Translations: [Disorder of pancreas] Onset: 3 Episodic Peripheral and visceral atherosclerosis (20 sources) Peripheral vascular disease; Translations: [Peripheral vascular disease, unspecified] Onset: 3 04-20-2023 Chronic Residual codes; unclassified (15 sources) Tobacco user; Translations: [Tobacco use] 09-04-2021 Episodic Residual codes; unclassified (8 sources) Early satiety; Translations: [Early satiety] Episodic Residual codes; unclassified (8 sources) Body mass index 20-24 - normal; Translations: [Body Mass Index between 19-24, adult] Episodic Residual codes; unclassified (1 source) Body mass index (BMI) 20.0-20.9, adult; Translations: [Body mass index [BMI] 20.0-20.9, adult] Onset: 3 Episodic Residual codes; unclassified (1 source) Other specified postprocedural states Episodic Screening and history of mental health and substance abuse codes (11 sources) H/O: drug dependency; Translations: [Personal history of tobacco use] Onset: 3 Episodic Septicemia (except in labor) (5 sources) Sepsis; Translations: [Unspecified septicemia] Onset: 3 10-06-2022 Episodic Septicemia (except in labor) (1 source) Septicemia (except in labor) 10-06-2022 Spondylosis; intervertebral disc disorders; other back problems (20 sources) Degeneration of cervical intervertebral disc; Translations: [Other cervical disc degeneration, unspecified cervical region] Onset: 4 07-29-2023 Chronic Substance-related disorders (20 sources) Smoker; Translations: [Tobacco use disorder] Onset: 3 04-20-2023 Chronic Comment on above: 3/4 PPD; Unclassified (2 sources) CHOLECYSTITIS K81.0, HYPOTENSION I95.9, LACTIC ACIDOSIS E87.20, TRANSMINIITS R74.01 10-05-2022 Comment on above: CHOLECYSTITIS K81.0, HYPOTENSION I95.9, LACTIC ACIDOSIS E87.20, TRANSMINIITS R74.01 Unclassified (2 sources) Primary hypertension 10-05-2022 Unclassified (1 source) 8M 07-23-2022 Comment on above: 8M Unclassified (1 source) NPV-GALLBLADDER 10-08-2022 Comment on above: NPV-GALLBLADDER Unclassified (1 source) Transaminitis 10-05-2022 Unclassified (1 source) Ascending cholangitis 10-06-2022 Unclassified (1 source) Acidosis, unspecified; Translations: [Acidosis, unspecified] Onset: 3 Unclassified (1 source) Contact with and (suspected) exposure to COVID-19; Translations: [Contact with and (suspected) exposure to COVID-19] Onset: 3 Unclassified (1 source) Esophagitis, unspecified without bleeding; Translations: [Esophagitis, unspecified without bleeding] Onset: 3 Unclassified (2 sources) Abdominal aortic aneurysm, without rupture, unspecified; Translations: [Abdominal aortic aneurysm, without rupture, unspecified] Onset: 3 Unclassified (1 source) Abdominal aortic aneurysm, without rupture, unspecified (CMS-HCC); Translations: [Abdominal aortic aneurysm, without rupture, unspecified (CMS-HCC)] Onset: 3 Past or Other Problems Problem Classification Problem Date Documented Da te Episodic/Chronic Abdominal pain (20 sources) Right upper quadrant pain; Translations: [Right upper quadrant abdominal pain] Onset: 09-26-2022 02-10-2022 Episodic Comment on above: ABDOMINAL PAIN Problem List clean-u p per request of Phys. EHR Cmte Biliary tract disease (20 sources) Biliary calculus; Translations: [Calculus of gallbladder without cholecystitis without obstruction] Onset: 10-08-2022 03-16-2022 Episodic Comment on above: Problem List clean-u p per request of Phys. EHR Cmte Conditions associated with dizziness or vertigo (20 sources) Vertigo; Translations: [Dizziness and giddiness] Onset: 07-29-2023 07-29-2023 Episodic Deficiency and other anemia (20 sources) Iron deficiency anemia secondary to inadequate dietary iron intake; Translations: [Other iron deficiency anemias] Onset: 07-29-2023 07-29-2023 Episodic Intestinal obstruction without hernia (20 sources) Intestinal obstruction co-occurrent and due to decreased peristalsis; Translations: [Ileus, unspecified] Onset: 07-29-2023 Resolved: 12-06-2024 07-06-2023 Episodic Mood disorders (7 sources) Mood disorders; Translations: [DEPRESSION UNSPECIFIED] Onset: 09-29-2022 11-16-2022 Other aftercare (18 sources) Long-term current use of drug therapy; Translations: [Other oil heaterman (current) drug therapy] Onset: 03-14-2024 03-14-2024 Episodic Other aftercare (5 sources) Patient encounter status; Translations: [Other oil heaterman (current) drug therapy] Onset: 03-14-2024 03-14-2024 Episodic Other circulatory disease (16 sources) Abnormal peripheral pulse; Translations: [Other symptoms involving cardiovascular system] Onset: 04-20-2023 04-20-2023 Episodic Other gastrointestinal disorders (20 sources) Diarrhea; Translations: [Diarrhea] Onset: 12-10-2023 02-10-2022 Episodic Comment on above: Problem List clean-u p per request of Phys. EHR Cmte Other gastrointestinal disorders (14 sources) Eructation; Translations: [Belching] Onset: 05-22-2024 Episodic Other gastrointestinal disorders (20 sources) Therapeutic opioid induced constipation; Translations: [Drug induced constipation] Onset: 07-29-2023 07-29-2023 Episodic Other gastrointestinal disorders (20 sources) Diarrhea due to drug; Translations: [Toxic gastroenteritis and colitis] Onset: 09-01-2023 Resolved: 12-10-2023 09-01-2023 Episodic Other gastrointestinal disorders (1 source) Constipation, unspecified; Translations: [Constipation, unspecified] Onset: 01-19-2024 Episodic Other lower respiratory disease (16 sources) Dyspnea; Translations: [Other respiratory abnormalities] Onset: 04-20-2023 04-20-2023 Episodic Other nutritional; endocrine; and metabolic disorders (8 sources) Overweight; Translations: [Overweight] Onset: 04-20-2023 Resolved: 2023 04-20-2023 Episodic Other nutritional; endocrine; and metabolic disorders (2 sources) Body mass index (BMI) 27.0-27.9, adult; Translations: [Body mass index (BMI) 27.0-27.9, adult] Onset: 2023 Episodic Residual codes; unclassified (20 sources) Edema of lower extremity; Translations: [Localized edema] Onset: 07-29-2023 07-29-2023 Episodic Unclassified (2 sources) Infrarenal abdominal aortic aneurysm (AAA) without rupture I71.43 Unclassified (1 source) Abdominal aortic aneurysm (AAA) without rupture, unspecified part I71.40 Unclassified (5 sources) Onset: 2023 Resolved: 11-14-2024 2023 Unclassified (1 source) Abdominal aortic aneurysm, without rupture, unspecified; Translations: [Abdominal aortic aneurysm, without rupture, unspecified] Onset: 11-14-2024 Unclassified (1 source) Abdominal aortic aneurysm, without rupture, unspecified (CMS-HCC); Translations: [Abdominal aortic aneurysm, without rupture, unspecified ([facility]-HCC)] Onset: 05-10-2024 Results Test Name Value Interpretation Reference Range Facility ALL CBC WITH AUTO DIFFon BASOPHILS ABSOLUTE AUTO 0.1 [facility] Basophils/100 WBC (Bld) 0.8 % 0.2 - 2.0 % [facility] Eosinophils/100 WBC (Bld) 5.7 % 0.9 - 7.0 % [facility] Erythrocyte distribution width (RBC) [Ratio] 15.7 % High 11.0 - 15.0 % [facility] Hematocrit (Bld) [Volume fraction] 39.3 % Low 42.0 - 54.0 % [facility] Hemoglobin (Bld) [Mass/Vol] 13.2 g/dL Low 14.0 - 18.0 g/dL [facility] IMMATURE GRANULOCYTES ABS AUTO 0.04 High [facility] Immature granulocytes/100 WBC (Bld) 0.3 % 0.0 - 0.5 % [facility] Interpretation and review of laboratory results Abnormal [facility] LYMPHOCYTES ABSOLUTE AUTO 3.5 [facility] Lymphocytes/100 WBC (Bld) 30.3 % 20.5 - 60.0 % [facility] MCH (RBC) [Entitic mass] 29.7 pg 25.9 - 34.0 pg [facility] MCHC (RBC) [Mass/Vol] 33.6 g/dL 29.9 - 35.2 g/dL [facility] MCV (RBC) [Entitic vol] 88.5 fL 80.0 - 94.0 fL [facility] MONOCYTES ABSOLUTE AUTO 0.5 [facility] Monocytes/100 WBC (Bld) 4.7 % 1.7 - 12.0 % [facility] NEUTROPHILS ABSOLUTE AUTO 6.7 High [facility] Neutrophils/100 WBC (Bld) 58.2 % 43.0 - 75.0 % [facility] Platelet mean volume (Bld) [Entitic vol] 11.9 fL 9.5 - 13.5 fL [facility] TBH EO # 0.7 [facility] TBH PLT 192 [facility] TB RBC 4.44 Low [facility] TB WBC 11.6 High [facility] US aortaon 08-28-2024 [place] [address] Ultrasound Report Signed Patient: Gopal Irving MR#: [id number] 271 : 1950 Acct:[id number] Age/Sex: 73 / M ADM Date: 08/28/24 Loc: [facility] Room: Type: [facility] Attending Dr: Maryann Casillas TICKET [employer]ER-C Ordering Provider: Maryann Casillas APRN Date of Service: 08/28/24 US/US aorta: I71.4 Copies to: Maryann Casillas APRN ULTRASOUND OF THE ABDOMINAL AORTA: CLINICAL INFORMATION: Follow-up abdominal aortic aneurysm COMPARISON : Ultrasound June 2023 TECHNIQUE AND FINDINGS: Multiple ultrasonographic scans of the abdominal aorta were obtained and show stable sac size Following measurement were obtained: Proximal height: 2.65 cm width : 2.5 Mid height: 2.46 cm width : 2.05 Distal height: 4.5 cm width : 4.3 Bilateral common iliac arteries measure 3.1n height and 3.2n width on the right and 2.8n height and 2.8n width on the left US/US aorta IMPRESSION: STABLE INFRARENAL ABDOMINAL AORTIC ANEURYSM SAC AFTER PRIOR ENDOVASCULAR ANEURYSM REPAIR Impression dictated by: Tani Vargas M.D.08/28/2024 11:21 AM Dictation Location: [place] [address] Tech: Rebecca Saab Transcribed By: LEONA 08/28/24 1121 Dictated By: Tani Vargas MD 08/28/24 1119 Signed By: 08/28/24 1121 Normal [facility] Physician [facility] CMP (CMP) (FOR REMOTE FH C USE)on 05-26-2024 Albumin [Mass/Vol] 3.6 g/dL 3.4 - 5.0 g/dL [facility] ALP [Catalytic activity/Vol] 92 U/L 33 - 136 U/L [facility] ALT [Catalytic activity/Vol] 20 U/L 10 - 52 U/L [facility] Comment on above: Patients treated wit h Sulfasalazine may generate falsely decreased results for ALT. Anion gap [Moles/Vol] 12 mmol/L 10 - 2 0 mmol/L [facility] AST [Catalytic activity/Vol] 18 U/L 9 - 39 U/L [facility] Bilirubin [Mass/Vol] 0.4 mg/dL 0.0 - 1 .2 mg/dL [facility] Calcium [Mass/Vol] 8.1 mg/dL Low 8.6 - 10. 3 mg/dL [facility] Chloride [Moles/Vol] 110 mmol/L High 98 - 10 7 mmol/L [facility] Creatinine [Mass/Vol] 1.43 mg/dL High 0.50 - 1.30 mg/dL [facility] GFRAT 52 Low - PINF [facility] Comment on above: Calculations of bev mated GFR are performed using the 2020 CKD-EPI Study Refit equation without the race variable for the IDMS-Traceable creatinine methods. https://jasn.asnjournals.org/content//ASN.95313 86477 Glucose [Mass/Vol] 98 mg/dL 74 - 99 mg/dL [facility] HCO3 (Bld) [Moles/Vol] 24 mmol/L 21 - 32 mmol/L [facility] Interpretation and review of laboratory results Abnormal [facility] Potassium [Moles/Vol] 3.4 mmol/L Low 3.5 - 5.3 mmol/L [facility] Protein [Mass/Vol] 5.9 g/dL Low 6.4 - 8.2 g/dL [facility] Sodium [Moles/Vol] 143 mmol/L 136 - 145 mmol/L [facility] Urea nitrogen [Mass/Vol] 17 mg/dL 6 - 23 mg/dL [facility] Original Ordering Provider: SOL JAUREGUI [facility] Comprehensive metabolic 2000 panelon 05-26-2024 Albumin BCP dye [Mass/Vol] 3.6 g/dL Normal 3.4-5.0 [facility] Comment on above: Performed By: #### 2 4323-8 #### TUTUIBFIDENCIO PETERSON ([id number]) [facility] ([facility]) [address] [place] [address]47 ALP [Catalytic activity/Vol] 92 U/L Normal 33-136 [facility] Comment on above: Performed By: #### 2 4323-8 #### COURTNEY PETERSON ([id number]) [facility] ([facility]) [address] [place] [address] 95882 ALT With P-5'-P [Catalytic activity/Vol] 20 U/L Normal 10-52 [facility] Comment on above: Result Comment: Radha ents treated with Sulfasalazine may generate falsely decreased results for ALT. Performed By: #### 2 4323-8 #### COURTNEY PETERSON ([id number]) [facility] ([facility]) [address] [place] [address]45 Anion gap [Moles/Vol] 12 mmol/L Normal 10-20 [facility] Comment on above: Performed By: #### 2 4323-8 #### TUTUIBFIDENCIO PETERSON ([id number]) [facility]) [address] [place] [address] 02880 AST With P-5'-P [Catalytic activity/Vol] 18 U/L Normal 9-39 [facility] Comment on above: Performed By: #### 2 4323-8 #### TUTUIBELIGERARDO PETERSON ([id number]) [facility] ([facility]) [address] [place] [address] 86607 Bilirubin [Mass/Vol] 0.4 mg/dL Normal 0.0-1.2 [facility] Comment on above: Performed By: #### 2 4323-8 #### COURTNEY PETERSON ([id number]) [facility] ([facility]) [address] [place] [address] Calcium [Mass/Vol] 8.1 mg/dL Low 8.6-10.3 [facility] Comment on above: Performed By: #### 2 4323-8 #### COURTNEY PETERSON ([id number]) [facility]) [address] [place] [address] Chloride [Moles/Vol] 110 mmol/L High 98-107 [facility] Comment on above: Performed By: #### 2 4323-8 #### COURTNEY PETERSON ([id number]) [facility]) [address] [place] [address] 87057 CO2 [Moles/Vol] 24 mmol/L Normal 21-32 [facility] Comment on above: Performed By: #### 2 4323-8 #### COURTNEY PETERSON ([id number]) [facility]) [address] [place] [address] 15129 Creatinine [Mass/Vol] 1.43 mg/dL High 0.50-1.30 [facility] Comment on above: Performed By: #### 2 4323-8 #### COURTNEY RIBEIRO RIO MARI ([id number]) [facility] ([facility]) [address] [place] [address] 58276 Glomerular filtration rate/1.73 sq M.predicted 52 mL/min/1.73m*2 Low >60 [facility] Comment on above: Result Comment: Calc ulations of estimated GFR are performed using the 2020 CKD-EPI Study Refit equation without the race variable for the IDMS-Traceable creatinine methods. https://ashsn.asnjournals.org/content//ASN.59006 67352 Performed By: #### 2 4323-8 #### COURTNEY PETERSON ([id number]) [facility]) [address] [place] [address] 42601 Glucose [Mass/Vol] 98 mg/dL Normal 74-99 [facility] Comment on above: Performed By: #### 2 4323-8 #### COURTNEY PETERSON ([id number]) [facility]) [address] [place] [address] 37240 Potassium [Moles/Vol] 3.4 mmol/L Low 3.5-5.3 [facility] Comment on above: Performed By: #### 2 4323-8 #### COURTNEY PETERSON ([id number]) [facility]) [address] [place] [address] 74124 Protein [Mass/Vol] 5.9 g/dL Low 6.4-8.2 [facility] Comment on above: Performed By: #### 2 4323-8 #### COURTNEY RIBEIRO RIO MARI ([id number]) [facility]) [address] [place] [address] 92971 Sodium [Moles/Vol] 143 mmol/L Normal 136-145 [facility] Comment on above: Performed By: #### 2 4323-8 #### COURTNEY PETERSON ([id number]) [facility]) [address] [place] [address] 50302 Urea nitrogen [Mass/Vol] 17 mg/dL Normal 6-23 [facility] Comment on above: Performed By: #### 2 4323-8 #### COURTNEY VIOLETA MARI ([id number]) [facility]) [address] [place] [address] 46688 US RIGHT UPPER QUADRANTon US RIGHT UPPER QUADRANT Interpreted By: Daniella Kelly, STUDY: US RIGHT UPPER QUADRANT; 05/26/2024 4:07 pm INDICATION: Signs/Symptoms:rule out cbd stone. ,K80.50 Calculus of bile duct without cholangitis or cholecystitis without obstruction,R14.2 Eructation,R10.9 Unspecified abdominal pain COMPARISON: None. ACCESSION NUMBER(S): [id number] ORDERING CLINICIAN: SOL RHODES TECHNIQUE: Multiple images of the right upper [...] Daniella Kelly 05/27/2024 11:39 AM Dictation workstation: [id number] [facility] Comment on above: Order Comment: Ok's to do RUQ per Najma Jordan with Dr. Rhodes's office ALL CBC WITH AUTO DIFFon BASOPHILS ABSOLUTE AUTO 0.1 [facility] Basophils/100 WBC (Bld) 0.9 % 0.2 - 2.0 % [facility] Eosinophils/100 WBC (Bld) 4.5 % 0.9 - 7.0 % [facility] Erythrocyte distribution width (RBC) [Ratio] 15.7 % High 11.0 - 15.0 % [facility] Hematocrit (Bld) [Volume fraction] 41.9 % Low 42.0 - 54.0 % [facility] Hemoglobin (Bld) [Mass/Vol] 13.7 g/dL Low 14.0 - 18.0 g/dL [facility] IMMATURE GRANULOCYTES ABS AUTO 0.16 High [facility] Immature granulocytes/100 WBC (Bld) 1.1 % High 0.0 - 0.5 % [facility] Interpretation and review of laboratory results Abnormal [facility] LYMPHOCYTES ABSOLUTE AUTO 3.8 [facility] Lymphocytes/100 WBC (Bld) 25.9 % 20.5 - 60.0 % [facility] MCH (RBC) [Entitic mass] 29.1 pg 25.9 - 34.0 pg [facility] MCHC (RBC) [Mass/Vol] 32.7 g/dL 29.9 - 35.2 g/dL [facility] MCV (RBC) [Entitic vol] 89.1 fL 80.0 - 94.0 fL [facility] MONOCYTES ABSOLUTE AUTO 0.8 [facility] Monocytes/100 WBC (Bld) 5.7 % 1.7 - 12.0 % [facility] NEUTROPHILS ABSOLUTE AUTO 9.1 High [facility] Neutrophils/100 WBC (Bld) 61.9 % 43.0 - 75.0 % [facility] Platelet mean volume (Bld) [Entitic vol] 12.1 fL 9.5 - 13.5 fL [facility] TBH EO # 0.7 [facility] TB PLT 174 [facility] RBC 4.70 [facility] WBC 14.7 High [facility] Capillary blood glucose charley urement by glucometer (mass/volume)Ordered By: Yemi Silverio on 01-19-2024 Glucose [Mass/Vol] 111 mg/dL Normal [facility] Comment on above: Random Glucose Refer ence Range is dependent on time and content of last meal. Glucose of more than 200 mg/dL in a nonstressed, ambulatory subject supports the diagnosis of Diabetes Mellitus. Result Comment: [place] Glucose Reference Range is dependent on time and content of last meal. Glucose of more than 200 mg/dL in a nonstressed, ambulatory subject supports the diagnosis of Diabetes Mellitus. Performed By: #### G LULS #### Point of Care testing , Glucose Poct Glucometerson 0 01-19-2024 Commemt1 Glu2: Cleaned Meter Normal [facility] Comment on above: Result Comment: PERF ORMED BY: [facility] [address] [place] [address] PATHOLOGIST [employer] OFFICER VIJAYA THOMAS M.D. Performed By: #### G LULS #### Point of Care testing , Stephen 01-19-2024 L Specimen: [id number] Received: 01/19/24 Status: GINETTE Correa Num: [id number] Spec Type: Surgical Subm Dr: Yemi Silverio MD Tissues: A Colon Biopsy (ASC POLYP) Procedures: HE/2, Gross/Micro L4 Age/ Patient Sex Location Account Attending Physician Maria FernandaGopal W 73/M [id number] Yemi Silverio MD SPEC NUM: [id number] RECD: 01/19/24 STATUS: GINETTE CORREA NUM: [id number] EMMA: 01/19/24- SUBM DR: Yemi Silverio MD ENTERED: 01/19/24 [facility] DR: SPEC TYPE: Surgical DEPT: S ORDERED: HE/2, Gross/Micro L4 ORDERED: HE/2, Gross/Micro L4 Pathological Diagnosis Ascending colon polyp biopsy: -Tubular adenoma Clinical Information Diarrhea Gross Description Received in formalin labeled with the patient's name, date of and ascending polyp is a 0.8 x 0.3 x 0.2 cm musa polypoid tissue fragment admixed with mucus, entirely submitted in A1. TW Microscopic Description Microscopic examinations are performed supporting the above interpretation Specimen: [id number] Received: 01/19/24 Status: GINETTE Correa Num: [id number] Spec Type: Surgical Subm Dr: Yemi Silverio MD Tissues: A Colon Biopsy (ASC POLYP) Procedures: VALDO/2, Gross/Micro L4 Patient: Gopal Irving [id number] (Continued) Specimen: [id number] Received: 01/19/24 (Continued) Signed (signature on file) Michelle Awan MD 01/22/24904 Specimen: [id number] Received: 01/19/24 Status: GINETTE Correa Num: [id number] Spec Type: Surgical Subm Dr: Yemi Silverio MD Tissues: A Colon Biopsy (ASC POLYP) Procedures: HE/2, Gross/Micro L4 Patient: Gopal Irving [id number] (Continued) Specimen: [id number] Received: 01/19/24 (Continued) CPT Codes 70150 Specimen: [id number] Received: 01/19/24 Status: GINETTE Lopeznigel Num: [id number] Spec Type: Surgical Subm Dr: Yemi Silverio MD Tissues: A Colon Biopsy (ASC POLYP) Procedures: Марина MOLINA/Myesha L4 Patient: Gopal Irving [id number] (Continued) Signed (signature on file) Michelle Awan MD 01/22/24904 [facility] No Panel InformationOrdered By: Yemi Silverio on 01-19-2024 Bedside Glucose Comment Glu2: cleaned meter [facility] Basophils Auto (Bld) [#/Vol] Ordered By: Anton Fontenot on 07-08-2023 Basophils (Bld) [#/Vol] 0.0 10*3/uL 0.0-0.2 [facility] Basophils/100 WBC Auto (Bld) Ordered By: Anton Fontenot on 07-08-2023 Basophils/100 WBC (Bld) 0.7 % . [facility] Calcium [Mass/volume] in Ser um or PlasmaOrdered By: Anton Fontenot on 07-08-2023 Calcium [Mass/Vol] 8.9 mg/dL 8.6-10.3 [facility] Carbon dioxide, total [Moles /volume] in Serum or PlasmaOrdered By: Anton Fontenot on 07-08-2023 CO2 [Moles/Vol] 26.0 mmol/L 21.0-31.0 [facility] Chloride [Moles/volume] in S glendy or PlasmaOrdered By: Anton Fontenot on 07-08-2023 Chloride [Moles/Vol] 109 mmol/L 98-107 [facility] Creatinine [Mass/volume] in Serum or PlasmaOrdered By: Anton Fontenot on 07-08-2023 Creatinine [Mass/Vol] 0.96 mg/dL 0.70-1.30 [facility] Eosinophils Auto (Bld) [#/Vo l]Ordered By: Anton Fontenot on 07-08-2023 Eosinophils (Bld) [#/Vol] 0.5 10*3/uL 0.0-0.45 [facility] Eosinophils/100 WBC Auto (Bl d)Ordered By: Anton Fontenot on 07-08-2023 Eosinophils/100 WBC (Bld) 7.5 % . [facility] Erythrocyte distribution wid th Auto (RBC) [Ratio]Ordered By: Anton Fontenot on 07-08-2023 Erythrocyte distribution width (RBC) [Ratio] 15.8 % 12.0-14.8 [facility] Glucose Glucometer (BldC) [M ass/Vol]Ordered By: Anton Fontenot on 07-08-2023 Glucose [Mass/Vol] 125 mg/dL [facility] Comment on above: Random Glucose Refer ence Range is dependent on time and content of last meal. Glucose of more than 200 mg/dL in a nonstressed, ambulatory subject supports the diagnosis of Diabetes Mellitus. Glucose [Mass/volume] in Ser um or PlasmaOrdered By: Anton Fontenot on 07-08-2023 Glucose [Mass/Vol] 99 mg/dL 70-100 [facility] Comment on above: ADA recommended refe rence rangeRandom Glucose Reference Range is dependent on time and content of last meal. Glucose of more than 200 mg/dL in a nonstressed, ambulatory subject supports the diagnosis of Diabetes Mellitus. Hematocrit Auto (Bld) [Volum e fraction]Ordered By: Anton Fontenot on 07-08-2023 Hematocrit (Bld) [Volume fraction] 36.2 % 38.8-50.0 [facility] Hemoglobin [Mass/volume] in BloodOrdered By: Anton Fontenot on 07-08-2023 Hemoglobin (Bld) [Mass/Vol] 12.1 g/dL 13.0-17.0 [facility] Leukocytes [#/volume] correc dhaval for nucleated erythrocytes in Blood by Automated counOrdered By: Anotn Fontenot on 07-08-2023 WBC corrected for nucl RBC Auto (Bld) [#/Vol] 6.7 10*3/uL 4.1-10.5 [facility] Lymphocytes Auto (Bld) [#/Vo l]Ordered By: Anton Fontenot on 07-08-2023 Lymphocytes (Bld) [#/Vol] 1.7 10*3/uL 1.00-4.8 [facility] Lymphocytes/100 WBC Auto (Bl d)Ordered By: Anton Fontenot on 07-08-2023 Lymphocytes/100 WBC (Bld) 26.0 % . [facility] MCH Auto (RBC) [Entitic mass ]Ordered By: Anton Fontenot on 07-08-2023 MCH (RBC) [Entitic mass] 28.9 pg 27.5-35.2 [facility] MCHC Auto (RBC) [Mass/Vol]Or dered By: Anton Fontenot on 07-08-2023 MCHC (RBC) [Mass/Vol] 33.3 g/dL 32.5-35.6 [facility] MCV Auto (RBC) [Entitic vol] Ordered By: Anton Fontenot on 07-08-2023 MCV (RBC) [Entitic vol] 86.7 fL 83.5-101 [facility] Monocytes Auto (Bld) [#/Vol] Ordered By: Anton Fontenot on 07-08-2023 Monocytes (Bld) [#/Vol] 0.5 10*3/uL 0.0-0.8 [facility] Monocytes/100 WBC Auto (Bld) Ordered By: Anton Fontenot on 07-08-2023 Monocytes/100 WBC (Bld) 8.0 % . [facility] Neutrophils Auto (Bld) [#/Vo l]Ordered By: Anton Fontenot on 07-08-2023 Neutrophils (Bld) [#/Vol] 3.9 10*3/uL 1.8-7.7 [facility] Neutrophils/100 WBC Auto (Bl d)Ordered By: Anton Fontenot on 07-08-2023 Neutrophils/100 WBC (Bld) 57.8 % . [facility] No Panel InformationOrdered By: Anton Fontenot on 07-08-2023 Bedside Glucose Comment Glu2: cleaned meter [facility] Estimated GFR (CKD-EPI) > 60.0 mL/Min [facility] Creatinine Clearance (Chem 62.77 [facility] Nucleated erythrocytes [Pres ence] in Blood by Automated countOrdered By: Anton Fontenot on 07-08-2023 Nucleated RBC Auto Ql (Bld) 0.1 /100{WBC} 0-0.5 [facility] Platelet mean volume Auto (B ld) [Entitic vol]Ordered By: Anton Fontenot on 07-08-2023 Platelet mean volume (Bld) [Entitic vol] 10.3 fL 6.6-10.1 [facility] Platelets Auto (Bld) [#/Vol] Ordered By: Anton Fontenot on 07-08-2023 Platelets (Bld) [#/Vol] 120 10*3/uL 150-450 [facility] Potassium [Moles/volume] in Serum or PlasmaOrdered By: Anton Fontenot on 07-08-2023 Potassium [Moles/Vol] 4.0 mmol/L 3.5-5.1 [facility] RBC Auto (Bld) [#/Vol]Ordere d By: Anton Fontenot on 07-08-2023 RBC (Bld) [#/Vol] 4.18 10*6/uL 3.90-5.60 [facility] Serum or plasma anion gap de terminationOrdered By: Anton Fontenot on 07-08-2023 Anion gap [Moles/Vol] 9.0 mmol/L 6.0-15.0 [facility] Sodium [Moles/volume] in Ser um or PlasmaOrdered By: Anton Fontenot on 07-08-2023 Sodium [Moles/Vol] 140 mmol/L 136-145 [facility] Urea nitrogen [Mass/volume] in Serum or PlasmaOrdered By: Anton Fontenot on 07-08-2023 Urea nitrogen [Mass/Vol] 17 mg/dL 7-25 [facility] WBC Auto (Bld) [#/Vol]Ordere d By: Anton Fontenot on 07-08-2023 WBC (Bld) [#/Vol] 6.7 10*3/uL 4.1-10.5 [facility] Alanine aminotransferase [En zymatic activity/volume] in Serum or PlasmaOrdered By: Anton Fontenot on 07-07-2023 ALT [Catalytic activity/Vol] 8 U/L 7-52 [facility] Albumin [Mass/volume] in Ser um or Plasma by Bromocresol green (BCG) dye binding methoOrdered By: Anton Fontenot on 07-07-2023 Albumin BCG dye [Mass/Vol] 3.6 g/dL 3.5-5.7 [facility] Alkaline phosphatase [Enzyma tic activity/volume] in Serum or PlasmaOrdered By: Anton Fontenot on 07-07-2023 ALP [Catalytic activity/Vol] 88 U/L 34-104 [facility] Aspartate aminotransferase [ Enzymatic activity/volume] in Serum or PlasmaOrdered By: Anton Fontenot on 07-07-2023 AST [Catalytic activity/Vol] 14 U/L 13-39 [facility] Bilirubin.total [Mass/volume ] in Serum or PlasmaOrdered By: Anton Fontenot on 07-07-2023 Bilirubin [Mass/Vol] 0.5 mg/dL 0.3-1.0 [facility] Clostridioides difficile tox in B tcdB gene [Presence] in Stool by GLORIA with probe deteOrdered By: Anton Fontenot on 07-07-2023 C. difficile toxin B tcdB gene GLORIA+probe Ql (Stl) Negative Negative [facility] Comment on above: Testing performed by RT-PCR Globulin Calc (S) [Mass/Vol] Ordered By: Anton Fontenot on 07-07-2023 Globulin (S) [Mass/Vol] 2.7 g/dL [facility] Protein [Mass/volume] in Ser um or PlasmaOrdered By: Anton Fontenot on 07-07-2023 Protein [Mass/Vol] 6.3 g/dL 6.4-8.9 [facility] Serum or plasma albumin/glob ulin mass ratioOrdered By: Anton Fontenot on 07-07-2023 Albumin/Globulin [Mass ratio] 1.3 {ratio} [facility] Activated partial thrombopla stin time (aPTT) in platelet poor plasma by coagulation aOrdered By: Va Ernst on 07-06-2023 aPTT Coag (PPP) [Time] 32.0 s 25.1-36.5 [facility] Comment on above: A hematocrit value g reater than 55% may lead to inaccurate results in coagulation testing. Patients having hematocrit values >55% require a special collection tube for coagulation studies. Please contact the laboratory at [phone] for redraw instructions. Automated erythrocytes count in urine sediment (number/area)Ordered By: Va Ernst on 07-06-2023 RBC Auto (Urine sed) [#/Area] 3-4 [HPF] 0-4 [facility] Automated leukocytes count i n urine sediment (number/area)Ordered By: Va Ernst on 07-06-2023 WBC Auto (Urine sed) [#/Area] 3-4 [HPF] 0-4 [facility] Bilirubin Test strip Ql (U)O rdered By: Va Ernst on 07-06-2023 Bilirubin Ql (U) Negative Negative [facility] COVID CepheidOrdered By: Karen Ernst on 07-06-2023 SARS-CoV-2 (COVID-19) Ab IA Ql Negative Negative [facility] Comment on above: This is a duplicate [employer] Xpert Xpress CoV-2/Flu/RSV Plus RNA by RT-PCR result to be used for statistical tracking purpose only. SARS-CoV-2 (COVID-19) RNA GLORIA+probe Ql (Unsp spec) [facility] Color Auto (U)Ordered By: Me mariana Ernst on 07-06-2023 Color (U) Yellow Yellow [facility] INR in Platelet poor plasma by Coagulation assayOrdered By: Va Ernst on 07-06-2023 INR Coag (PPP) [Relative time] 1.1 {INR} [facility] Comment on above: INR Therapeutic Rang e A) Pre- and Peroperative OAT started two weeks before surgery. NOT HIP SURGERY: 1.5 - 2.5 HIP SURGERY: 2 - 3B) Primary and secondary prevention of venous THROMBOSIS: 2 - 3C) Active venous thrombosis, pulmonary embolismand prevention of recurrent venous thrombosis: 2 - 3D) Prevention of arterial thromboembolismincluding patients with mechanical heart valves: 3 - 4.5 Ketones Auto test strip (U) [Mass/Vol]Ordered By: Va Ernst on 07-06-2023 Ketones (U) [Mass/Vol] Negative Negative [facility] Laboratory - UrinalysisOrder ed By: Va Ernst on 07-06-2023 Hyaline casts LM Ql (Urine sed) None seen [LPF] 0-8 [facility] Lactate [Moles/volume] in Se rum or PlasmaOrdered By: Va Ernst on 07-06-2023 Lactate [Moles/Vol] 1.8 mmol/L 0.5-2.2 [facility] Lipase [Enzymatic activity/v olume] in Serum or PlasmaOrdered By: Va Ernst on 07-06-2023 Lipase [Catalytic activity/Vol] 29.0 U/L 11.0-82.0 [facility] Monocyte distribution width [Entitic volume] in Blood by AutomatedOrdered By: Va Ernst on 07-06-2023 Monocyte distribution width Auto (Bld) [Entitic vol] 27.57 % 0.00-20.00 [facility] Comment on above: For adults in ED, MD W > 20.0 may be associated with a higher risk of sepsis during the first 12 hrs of hospital admission Natriuretic peptide B [Mass/ Vol]Ordered By: Va Ernst on 07-06-2023 Natriuretic peptide B (Bld) [Mass/Vol] 246.0 pg/mL 5-100 [facility] Nitrite Test strip Ql (U)Ord ered By: Va Ernst on 07-06-2023 Nitrite Ql (U) Negative Negative [facility] Protein Auto test strip (U) [Mass/Vol]Ordered By: Va Ernst on 07-06-2023 Protein (U) [Mass/Vol] 300 mg/dL [facility] Prothrombin time (PT)Ordered By: Va Ernst on 07-06-2023 PT Coag (PPP) [Time] 12.5 s 9.0-12.9 [facility] Comment on above: A hematocrit value g reater than 55% may lead to inaccurate results in coagulation testing. Patients having hematocrit values >55% require a special collection tube for coagulation studies. Please contact the laboratory at [phone] for redraw instructions. Specific gravity Auto test s trip (U) [Rel density]Ordered By: Va Ernst on 07-06-2023 Specific gravity (U) [Rel density] 1.021 1.001-1.03 0 [facility] Squamous epithelial cells de tection in urine sediment by light microscopyOrdered By: Va Ernst on 07-06-2023 Epithelial cells.squamous LM Ql (Urine sed) 0-1 [HPF] 0-2 [facility] Troponin I.cardiac [Mass/vol ume] in Serum or Plasma by Detection limit <= 0.01 ng/Ordered By: Va Ernst on 07-06-2023 Troponin I.cardiac DL <= 0.01 ng/mL [Mass/Vol] 27.8 pg/mL 0.0-20.0 [facility] Urine bacteria detection by automated methodOrdered By: Va Ernst on 07-06-2023 Bacteria Auto Ql (U) None seen None Seen [facility] Urine clarity by refractomet ry automatedOrdered By: Va Ernst on 07-06-2023 Clarity Refractometry automated (U) Clear Clear [facility] Urine glucose measurement by automated test strip (mass/volume)Ordered By: Va Ernst on 07-06-2023 Glucose Auto test strip (U) [Mass/Vol] Normal mg/dL Normal [facility] Urine hemoglobin detection b y automated test stripOrdered By: Va Ernst on 07-06-2023 Hemoglobin Auto test strip Ql (U) Negative Negative [facility] Urine leukocyte esterase det ection by automated test stripOrdered By: Va Ernst on 07-06-2023 Leukocyte esterase Auto test strip Ql (U) Negative Negative [facility] Urobilinogen Auto test strip (U) [Mass/Vol]Ordered By: Va Ernst on 07-06-2023 Urobilinogen (U) [Mass/Vol] Normal mg/dL Normal [facility] pH Auto test strip (U)Ordere d By: Va Ernst on 07-06-2023 pH (U) 5.5 [pH] 5.0-9.0 [facility] Office Visit (Cardiology)on 03-03-2023 Follow-up visit Diagnoses/Problems Assessed AAA (abdominal aortic aneurysm) (441.4) (I71.40) Diabetes mellitus (250.00) (E11.9) Essential hypertension (401.9) (I10) Hyperlipidemia (272.4) (E78.5) PVD (peripheral vascular disease) (443.9) (I73.9) Two-vessel coronary artery disease (414.00) (I25.10) Current smoker (305.1) (F17.200) 3/4 PPD Body mass index (BMI) of 21.0 to 21.9 in adult (V85.1) (Z68.21) Status post non-ST elevation myocardial infarction (NSTEMI) (412) (I25.2) At moderate risk for fall (V15.88) (Z91.81) Orders Essential hypertension Stop: Valsartan 160 MG Oral Tablet Start: Valsartan 320 MG Oral Tablet; TAKE 1 TABLET DAILY SocHx: Current smoker Tobacco Use Screening; Status:Complete; Done: [id number] Patient Instructions Please bring all medicines, vitamins, and herbal supplements with you when you come to the office. Prescriptions will not be filled unless you are compliant with your follow up appointments or have a follow up appointment scheduled as per instruction of your physician. Refills should be requested at the time of your visit. Patient provided Falls Prevention education sheet. BP check in 2 months Follow up in 6 months Increased Valsartan to 320mg QD Chief Complaint GOPAL IRVING is being seen for a 8 month follow-up of. 72-year-old gentleman returns for routine cardiovascular follow-up status post recent laparoscopic cholecystectomy at [facility]. He is otherwise doing well with no cardiovascular events, details of the surgical follow-up and notes are reviewed. Patient has known ASHD with previous PCI's of the proximal and mid LAD and RCA remotely, follow-up heart catheterization in 2021 revealed widely patent stents in the segments with diffuse distal RCA and LAD disease with preserved left ventricular function, treated conservatively. He has a history of AAA endograft stent repair, accelerated hypertension, severe COPD, ongoing tobacco use, diabetes mellitus. Today's blood pressure is accelerated on current therapies. Patient had 3 recent falls at home however he remains ambulatory, no longer in a wheelchair. He is smoking, we have counseled him extensively today on smoking cessation for 3 to 5 minutes. He denies angina or recurrent cardiovascular events or cardiac related hospitalizations Recommendations, escalate valsartan to 320 mg, blood pressure check with family physician, will see him again in 6 months Surgical History Problems History of Angioplasty History of Cardiac catheterization with stent placement History of Cholecystectomy History of Colonoscopy 20Jul2014 History of Ear surgery History of Eye surgery History of Prostate biopsy History of Transurethral resection of prostate Past Medical History Problems History of Benign essential hypertension (401.1) (I10) History of nicotine dependence (V15.82) (Z87.891) History of Pain of right lower extremity (729.5) (M79.604) Current Meds Medication NameInstruction Aspirin 81 MG Oral Tablet Delayed ReleaseTAKE 1 TABLET DAILY. Esomeprazole Magnesium 40 MG Oral Capsule Delayed ReleaseTAKE 1 CAPSULE TWICE DAILY. Iron 325 (65 Fe) MG Oral TabletTake 1 tablet daily metFORMIN HCl - 500 MG Oral TabletTAKE 1 TABLET EVERY 12 HOURS WITH FOOD. Metoprolol Succinate ER 50 MG Oral Tablet Extended Release 24 Hour Paxil 20 MG Oral TabletTAKE 1 TABLET DAILY. Polyethylene Glycol 3350 17 GM/SCOOP Oral PowderUSE DIRECTED ONCE DAILY Rosuvastatin Calcium 20 MG Oral TabletTAKE 1 TABLET DAILY. Tolterodine Tartrate 2 MG Oral TabletTAKE 1 TABLET PRN Valsartan 160 MG Oral TabletTAKE 1 TABLET BY MOUTH EVERY DAY Allergies Medication Codeine Derivatives Adverse Reaction; Palpitations; Recorded By: Desirae Toure; 08/11/2021 9:26:16 PM Social History Problems Current smoker (305.1) (F17.200) 3/4 PPD Daily caffeine consumption, 1 serving a day No alcohol use No illicit drug use Review of Systems Constitutional: not feeling tired. Cardiovascular: no intermittent leg claudication and as noted in HPI. Respiratory: no cough and no shortness of breath. Gastrointestinal: no change in bowel habits and no blood in stools. Integumentary: no skin rashes. Neurological: dizziness, but no seizures and no frequent falls. All other systems have been reviewed and are negative for complaint. Vitals Vital Signs Recorded: [id number] 12:09PM Heart Rate66, R Radial [id number], RUE, Sitting Rthamedgk80, RUE, Sitting Height5 ft 6 in Gthxzj357 lb BMI Pxbkotsqat25.95 kg/m2 BSA Calculated1.7 Tobacco Usea) Yes Patient encouraged to stop using tobacco productsYes PHQ-2 #1. Over the last 2 weeks have you felt down, depressed or hopeless? (If yes, answer PHQ-9 below)No PHQ-2 #2. Over the last 2 weeks have you felt little interest or pleasure in doing things? (If yes, answer PHQ-9 below)No Falls Screening (Age 18+)b) One or more falls in the last year Physical Exam Constitutional: alert and in (more content not included)... Normal [employer] Tobacco Screening.on 023 Adult depression screening assessment No [facility] [employer] 250 DO Work Phone: Fall risk assessment b) One or more fall s in the last year [facility] [employer] 250 DO Work Phone: Tobacco use status CP a) Yes [facility] [employer] 250 DO Work Phone: [phone] Tobacco Screening. Yes [facility] [employer] 250 DO Work Phone: ERCPon 12-17-2022 ERCP PATIENTNAME Patient Name: Gopal Irving EXAMDATE Procedure Date: 12/17/2022 9:41 AM PATIENTID PATIENTACCOUNTNUM PATIENTDOB Date of : 1950 ADMITTYPE Admit Type: Outpatient PATIENTROOM Site: [facility] ETHNICITY Ethnicity: Not or RACE Race: White PROVDR Attending MD: Alyssia Weber MD, [id number] ENDOPROCEDURENAME Procedure: ERCP INDICATION Indications: Follow-up of bile duct stone(s), Follow-up of ascending cholangitis, Biliary stent removal PTPROFILE Patient Profile: This is a 72 year old male. Refer to note in patient chart for documentation of history and physical. PRIMARYPROVIDER Providers: Alyssia Weber MD (Doctor), Jeevan Mcgovern RN (Nurse), Balbina Schuler, Sociology Teacher EDREFPROVIDER Referring: CURRENT_MEDS Medicines: General Anesthesia COMPLIC Complications: No immediate complications. ENDOPROCEDURETEXT Procedure: Pre-Anesthesia Assessment: - Prior to the [...] the physician, the nurse, the anesthesiologist, the string winding machine operator and the pbx technician in the procedure room. Mental Status [...] difficulty. The patient tolerated the procedure well. FINDING Findings: A hat cutter film of the abdomen was obtained. Surgical clips, consistent with a previous cholecystectomy, were seen in the area of the right upper quadrant of the abdomen. A biliary stent was visible on the hat cutter film. The esophagus was successfully intubated under [...] the duct. Final balloon sweeps were negative. EBL Estimated Blood Loss: Estimated blood loss: none. IMPRESS Impression: - One partially occluded stent from the biliary tree was seen in the major papilla. Removed. - Prior biliary sphincterotomy appeared open. - The biliary tree was swept and sludge was found. ENDORECOMMENDATION Recommendation: - Patient has a contact number available for emergencies. The signs and symptoms of potential delayed complications were discussed with the patient. Return to normal activities tomorrow. Written discharge instructions were provided to the patient. - Written discharge instructions were provided to the patient. - Resume previous diet. - Continue present medications. CPT_CODES Proc (more content not included)... Normal [facility] Alyssia Weber MD - 01/11/2023 Patient Name: Gopal Irving Procedure Date: 12/17/2022 9:41 AM Date of : 1950 Admit Type: Outpatient Site: [facility] Ethnicity: Not or Race: White Attending MD: Alyssia Weber MD, [id number] Procedure: ERCP Indications: Follow-up of bile duct stone(s), Follow-up of ascending cholangitis, Biliary stent removal Patient Profile: This is a 72 year old male. Refer to note in patient chart for documentation of history and physical. Providers: Alyssia Weber MD (Doctor), Jeevan Mcgovern RN (Nurse), Balbina Schuler, Sociology Teacher Referring: Medicines: General Anesthesia Complications: No immediate [...] the physician, the nurse, the anesthesiologist, the string winding machine operator and the pbx technician in the procedure room. Mental Status [...] patient tolerated the procedure well. Findings: A hat cutter film of the abdomen was obtained. Surgical clips, consistent with a previous cholecystectomy, were seen in the area of the right upper quadrant of the abdomen. A biliary stent was visible on the hat cutter film. The esophagus was successfully intubated under [...] present medications. Procedure Code(s): --- Professional --- 57406, Endoscopic retrograde cholangiopancreatography (ERCP); with removal of foreign body(s) or stent(s) from biliary/pancreatic duct(s) 20251, Endoscopic retrograde c (more content not included)... [facility] Work Phone: Radiology Study observation (narrative) [facility] Work Phone: ERCPOrdered By: Alyssia renee 12-17-2022 [facility] Work Phone: GLUCOSE-POCTon 12-17-2022 Glucose [Mass/Vol] 98 mg/dL Normal 74 - 99 [facility] Comment on above: Performed By: #### G AIXA #### [facility] [address] [place] [address] Glucose Test strip manual (B ld) [Mass/Vol]on 12-17-2022 Glucose [Mass/Vol] 98 mg/dL 74 - 99 mg/dL [facility] Order Reconciliationon 12-17 Order Reconciliation Page 1 Discharge Reconciliation Document Reconciliation Type: Discharge requested on behalf of Alyssia Weber (Physician) done by Alyssia Weber) Discharge - Reconciliation: 17-Dec-2022 09:34 by: Alyssia Weber) Home Medications EnteredHOME MEDICATIONS AT DISCHARGE DateReconciliation Comment/ Additional Information Aspir 81 oral delayed release tablet 1 tab(s) orally once a day 05-Oct-2022 12:05 Aspir 81 oral delayed release tablet 1 tab(s) orally once a day 05-Oct-2022 12:05 Aspir 81 oral delayed release tablet is continued as Aspir 81 oral delayed release tablet esomeprazole 40 mg oral delayed release capsule 1 cap(s) orally 2 times a day 05-Oct-2022 12:05 esomeprazole 40 mg oral delayed release capsule 1 cap(s) orally 2 times a day 05-Oct-2022 12:05 esomeprazole 40 mg oral delayed release capsule is continued as esomeprazole 40 mg oral delayed release capsule ferrous sulfate 325 mg (65 mg elemental iron) oral tablet 1 tab(s) orally once a day 05-Oct-2022 12:08 ferrous sulfate 325 mg (65 mg elemental iron) oral tablet 1 tab(s) orally once a day 05-Oct-2022 12:08 ferrous sulfate 325 mg (65 mg elemental iron) oral tablet is continued as ferrous sulfate 325 mg (65 mg elemental iron) oral tablet hydrocodone-acetaminophen 5 mg-325 mg oral tablet 1 tab(s) orally every 6 hours, As Needed - for pain 08-Nov-2022 18:31 hydrocodone-acetaminophen 5 mg-325 mg oral tablet 1 tab(s) orally every 6 hours, As Needed - for pain 08-Nov-2022 18:31 hydrocodone-acetaminophen 5 mg-325 mg oral tablet is continued as hydrocodone-acetaminophen 5 mg-325 mg oral tablet metFORMIN 500 mg oral tablet, extended release 1 tab(s) orally 2 times a day 05-Oct-2022 12:06 metFORMIN 500 mg oral tablet, extended release 1 tab(s) orally 2 times a day 05-Oct-2022 12:06 metFORMIN 500 mg oral tablet, extended release is continued as metFORMIN 500 mg oral tablet, extended release methocarbamol 750 mg oral tablet 1 tab(s) orally 3 times a day, As Needed 17-Dec-2022 08:26 methocarbamol 750 mg oral tablet 1 tab(s) orally 3 times a day, As Needed 17-Dec-2022 08:26 methocarbamol 750 mg oral tablet is continued as methocarbamol 750 mg oral tablet metoprolol succinate 50 mg oral tablet, extended release 1 tab(s) orally once a day 05-Oct-2022 12:06 metoprolol succinate 50 mg oral tablet, extended release 1 tab(s) orally once a day 05-Oct-2022 12:06 metoprolol succinate 50 mg oral tablet, extended release is continued as metoprolol succinate 50 mg oral tablet, extended release PARoxetine 20 mg oral tablet 1 tab(s) orally once a day (at bedtime) 05-Oct-2022 12:06 PARoxetine 20 mg oral tablet 1 tab(s) orally once a day (at bedtime) 05-Oct-2022 12:06 PARoxetine 20 mg oral tablet is continued as PARoxetine 20 mg oral tablet rosuvastatin 40 mg oral tablet 0.5 tab(s) orally once a day (at bedtime) 05-Oct-2022 12:07 rosuvastatin 40 mg oral tablet 0.5 tab(s) orally once a day (at bedtime) 05-Oct-2022 12:07 rosuvastatin 40 mg oral tablet is continued as rosuvastatin 40 mg oral tablet tolterodine 2 mg oral capsule, extended release 1 cap(s) orally Wednesday, Wednesday, and 05-Oct-2022 12:08 tolterodine 2 mg oral capsule, extended release 1 cap(s) orally Wednesday, Wednesday, and 05-Oct-2022 12:08 tolterodine 2 mg oral capsule, extended release is continued as tolterodine 2 mg oral capsule, extended release valsartan 160 mg oral tablet 1 tab(s) orally once a day 08-Nov-2022 18:31 valsartan 160 mg oral tablet 1 tab(s) orally once a day 08-Nov-2022 18:31 valsartan 160 mg oral tablet is continued as valsartan 160 mg oral tablet Home Medications Added During Discharge Reconciliation Xray ERCP Inpatient Routine All Active Home Medications at time of Discharge Reconciliation: 17-Dec-2022 09:34 Aspir 81 oral delayed release tablet 1 tab(s) orally once a day esomeprazole 40 mg oral delayed release capsule 1 cap(s) orally 2 times a day ferrous sulfate 325 mg (65 mg elemental iron) oral tablet 1 tab(s) orally once a day hydrocodone-acetaminophen 5 mg-325 mg oral tablet 1 tab(s) orally every 6 hours, As Needed - for pain metFORMIN 500 mg oral tablet, extended release 1 tab(s) orally 2 times a day methocarbamol 750 mg oral tablet 1 tab(s) orally 3 times a day, As Needed metoprolol succinate 50 mg oral tablet, extended release 1 tab(s) orally once a day PARoxetine 20 mg oral tablet 1 tab(s) orally once a day (at bedtime) rosuvastatin 40 mg oral tablet 0.5 tab(s) orally once a day (at bedtime) tolterodine 2 mg oral capsule, extended release 1 cap(s) orally Wednesday, Wednesday, and Wednesday valsartan 160 mg oral tablet 1 tab(s) orally once a day Xray ERCP Inpatient Routine Normal [facility] RF Unspecified body region L ess than 1 hour Views during surgeryon 12-17-2022 Radiology Study observation (narrative) [facility] Work Phone: [employer]IS LEGACY CONVERSIONS Conversion, [employer] - 01/22/2023 [facility] Work Phone: RF Unspecified body region L ess than 1 hour Views during surgeryOrdered By: Ge Conversion on 12-17-2022 [facility] Post Op (General Surgery)on 11-19-2022 Post Op (General Surgery) Diagnoses/Problems Current smoker (305.1) (F17.200) 3/4 PPD Choledocholithiasis (574.50) (K80.50) Orders Two-vessel coronary artery disease Continue: Aspirin EC 81 MG TBEC; TAKE 1 TABLET DAILY Rx By: Bonifacio Stern; Dispense: 90 Days ; #:90 Tablet; Refill: 3;For: Two-vessel coronary artery disease; ANDREW = N; Verified Transmission to [facility]; Msg to Pharmacy: Fill at patient request only; Last Updated By: Stacie Dorsey; 11/19/2022 1:06:35 PM Unlinked Continue: Esomeprazole Magnesium 40 MG Oral Capsule Delayed Release; TAKE 1 CAPSULE TWICE DAILY Rx By: JEAN CLAUDE; Dispense: 0 Days ; #: Sufficient Capsule; Refill: 0; ANDREW = N; Record; Last Updated By: Stacie Dorsey; 11/19/2022 1:06:35 PM Continue: HYDROcodone-Acetaminophen 5-325 MG Oral Tablet; TAKE 1 TABLET EVERY 4 TO 6 HOURS NEEDED FOR PAIN Dispense: 0 Days ; #: Sufficient Tablet; Refill: 0; ANDREW = N; Record; Last Updated By: Stacie Dorsey; 11/19/2022 1:06:35 PM Continue: Iron 325 (65 Fe) MG Oral Tablet; Take 1 tablet daily Dispense: 0 Days ; #: Sufficient Tablet; Refill: 0; ANDREW = N; Record; Last Updated By: Stacie Dorsey; 11/19/2022 1:06:35 PM Continue: metFORMIN HCl - 500 MG Oral Tablet; TAKE 1 TABLET EVERY 12 HOURS WITH FOOD Dispense: 0 Days ; #: Sufficient Tablet; Refill: 0; ANDREW = N; Record; Last Updated By: Stacie Dorsey; 11/19/2022 1:06:35 PM Continue: Methocarbamol 750 MG Oral Tablet; TAKE 1 TABLET 3 TIMES DAILY Dispense: 0 Days ; #: Sufficient Tablet; Refill: 0; ANDREW = N; Record; Last Updated By: Stacie Dorsey; 11/19/2022 1:06:35 PM Continue: Paxil 20 MG Oral Tablet (PARoxetine HCl); TAKE 1 TABLET DAILY Dispense: 0 Days ; #: Sufficient Tablet; Refill: 0; ANDREW = N; Record; Last Updated By: Stacie Dorsey; 11/19/2022 1:06:35 PM Continue: Polyethylene Glycol 3350 17 GM/SCOOP Oral Powder; USE DIRECTED ONCE DAILY Rx By: Jean Claude; Dispense: 30 Days ; #:238; Refill: 0; ANDREW = N; Record; Last Updated By: Stacie Dorsey; 11/19/2022 1:06:35 PM Continue: Tolterodine Tartrate 2 MG Oral Tablet; TAKE 1 TABLET PRN Dispense: 0 Days ; #: Sufficient Tablet; Refill: 0; ANDREW = N; Record; Last Updated By: Stacie Dorsey; 11/19/2022 1:06:35 PM Patient Discussion/Summary Assessment: This is a 72 year-old male who presents for follow up of a laparoscopic cholecystectomy with IOC for cholelithiasis with complications of cholangitis. He has been doing very well since surgery. He has no complaints. There is no evidence of any obvious complications. Shirlene were removed and steri strips were placed. All port sites are healed except for umbilicus. It was washed out with peroxide and saline and two 3-0 Vicryl interrupted stitches were placed with stri strips over top. A discussion was again had with the pt to try and abstain from smoking these next two weeks while the port sites heal. He is due to return for stent removal by Dr. Weber 6 weeks after surgery. Plan: -- Shower daily, soap and water and pat abd dry. -- No lifting anything heavier than 20 pounds for another 4 weeks, which is 6 weeks postoperative. -- At this point, there is no specific need to follow up with me. If he has any new questions or concerns, he may return at any time. Chief Complaint POV-Lap. Rachna. 11/11. History of Present IllnessFollow-Up Note I am seeing this patient on behalf of my partner Dr. Jalen Mattson, who is on PTO. Chief Complaint: Follow up from cholecystectomy History of Present Illness: This is a 72-year-old gentleman with history of cholelithiasis and cholangitis, ERCP, stent placement, with subsequent recovery. He presented for cholecystectomy with intraoperative cholangiogram November 11, 2022. He has been doing well since surgery, no nausea/vomiting, or diarrhea. He still continues to smoke about a PPD. Past Medical History: See Franky Mattson?s office note 10/11/2022 Past Surgical History: See Franky Mattson?s office note 10/11/2022 Medications: See Franky Mattson?s office note 10/11/2022 Allergies: See Franky Mattson?s office note 10/11/2022 Family History: See Franky Mattson?s office note 10/11/2022 Social History: See Franky Mattson?s office note 10/11/2022 Review of Systems A complete 10 point review of systems was performed and is negative except as noted in the history of present illness. Vitals: See vital section below Physical Exam: General: No acute distress. Neuro: Alert and oriented 3. Follows commands. Head: Atraumatic Eyes: Pupils equal reactive to light. Extraocular motions intact. Ears: Hears normal speaking voice. Mouth, Nose, Throat: Mucous membranes moist. Normal dentition. Neck: Supple. No appreciable masses. Chest: No crepitus. Heart: Regular rate and rhythm. Lung: Clear to auscultation bilaterally. Vascular: No carotid bruits. Palpable radial pulses bilaterally. Abdomen: Soft. Nondistended. Nontender. [place] at port sites, all healed but umbilicus. No stigmata of infection. (more content not included)... Normal [facility]Con 11-12-2022 Erythrocyte distribution width (RBC) [Ratio] 16.0 % High 11.5 - 14.5 [facility] Comment on above: Performed By: #### M G #### [address] [address] Hematocrit (Bld) [Volume fraction] 39.3 % Low 41.0 - 52.0 [facility] Comment on above: Performed By: #### M G #### [address] [place] [address] Hemoglobin (Bld) [Mass/Vol] 11.7 g/dL Low 13.5 - 17.5 [facility] Comment on above: Performed By: #### M G #### [address] [place] [address] MCHC (RBC) [Mass/Vol] 29.8 g/dL Low 32.0 - 36.0 [facility] Comment on above: Performed By: #### M G #### [address] [address] MCV (RBC) [Entitic vol] 92 fL Normal 80 - 100 [facility] Comment on above: Performed By: #### M G #### [address] [address] NUCLEATED RBC 0.0 /100 WBC Normal 0.0 - 0.0 [facility] Comment on above: Performed By: #### M G #### [address] [address] Platelets (Bld) [#/Vol] 164 10*3/uL Normal 150 - 450 [facility] Comment on above: Performed By: #### M G #### [address] [address] RBC 4.25 x10E12/L Low 4.50 - 5.90 [facility] Comment on above: Performed By: #### M G #### [address] [address] WBC (Bld) [#/Vol] 12.7 10*3/uL High 4.4 - 11.3 [facility] Comment on above: Performed By: #### M G #### [address] [address] COMPREHENSIVE PANELon 2022 Albumin [Mass/Vol] 3.3 g/dL Low 3.4 - 5.0 [facility] Comment on above: Performed By: #### C MP ####[address] [address] ALP [Catalytic activity/Vol] 70 U/L Normal 33 - 136 [facility] Comment on above: Performed By: #### C MP ####[address] [address] ALT [Catalytic activity/Vol] 20 U/L Normal 10 - 52 [facility] Comment on above: Result Comment: Radha ents treated with Sulfasalazine may generate falsely decreased results for ALT. Performed By: #### C MP ####[address] [address] Anion gap [Moles/Vol] 16 mmol/L Normal 10 - 20 [facility] Comment on above: Performed By: #### C MP ####[address] [address] AST [Catalytic activity/Vol] 38 U/L Normal 9 - 39 [facility] Comment on above: Performed By: #### C MP ####[address] [address] Bilirubin [Mass/Vol] 0.6 mg/dL Normal 0.0 - 1.2 [facility] Comment on above: Performed By: #### C MP ####[address] [address] Calcium [Mass/Vol] 8.8 mg/dL Normal 8.6 - 10.3 [facility] Comment on above: Performed By: #### C MP ####[address] [address] Chloride [Moles/Vol] 104 mmol/L Normal 98 - 107 [facility] Comment on above: Performed By: #### C MP ####[address] [address] Creatinine [Mass/Vol] 0.98 mg/dL Normal 0.50 - 1.30 [facility] Comment on above: Performed By: #### C MP ####[address] [address] GFR/1.73 sq M.predicted among non-blacks MDRD (S/P/Bld) [Vol rate/Area] 82 mL/min/{1.73_m2} Normal >90 [facility] Comment on above: Result Comment: CALC ULATIONS OF ESTIMATED GFR ARE PERFORMED USING THE 2020 CKD-EPI STUDY REFIT EQUATION WITHOUT THE RACE VARIABLE FOR THE IDMS-TRACEABLE CREATININE METHODS. https://jasn.asnjournals.org/content/early//ASN.07507 53112 Performed By: #### C MP ####[address] [address] Glucose [Mass/Vol] 88 mg/dL Normal 74 - 99 [facility] Comment on above: Performed By: #### C MP ####[address] [address] HCO3 (Bld) [Moles/Vol] 19 mmol/L Low 21 - 32 [facility] Comment on above: Performed By: #### C MP ####[address] [address] Potassium [Moles/Vol] 4.3 mmol/L Normal 3.5 - 5.3 [facility] Comment on above: Performed By: #### C MP ####[address] [address] Protein [Mass/Vol] 6.1 g/dL Low 6.4 - 8.2 [facility] Comment on above: Performed By: #### C MP ####[address] [address] Sodium [Moles/Vol] 135 mmol/L Low 136 - 145 [facility] Comment on above: Performed By: #### C MP ####[address] [address] Urea nitrogen [Mass/Vol] 19 mg/dL Normal 6 - 23 [facility] Comment on above: Performed By: #### C MP ####[address] [address] Clinical Event Note-Discharg e medicationson 11-12-2022 Clinical Event Note-Discharge medications Clinical Event: Clinical Event Note: TopicDischarge medications Details Was notified by nursing that patient is on [place] at home. Patient is s/p cholecystectomy and patient medication rec was showing norco, oxycodone and tylenol #3. Spoke with Dr. Mattson and plan is to have patient continue [place] that is prescribed by his family doctor and have family reach out to PCP if further pain medication is needed since he follows with that PCP to have the [place] prescribed (no other narcotic scripts to be given upon discharge and Tylenol #3 script discarded). Patient daughter is at bedside with all questions answered with understanding. Electronic Signatures: Shaniqua Iraheta (COATER OPERATOR [employer]ATION [employer]ARD-[employer]) (Signed 12-Nov-2022 13:46) Authored: Clinical Event Note Last Updated: 12-Nov-2022 13:46 by Shaniqua Iraheta (COATER OPERATOR [employer]) [facility] [place] Note-Acute Ca re Surgeryon 11-12-2022 Daily Progress Note-Acute Care Surgery Service: Acute Care Surgery Subjective Data: GOPAL IRVING is a 72 year old Male who is Hospital Day # 2 and POD #1 for 1. Laparoscopic cholecystectomy with intraoperative cholangiogram;2. ;3. ;4. ;5. Objective Data: Objective Information: T PRBPMAPSpO2 [id number]/8695% Date/Time11/12 8: 8: 8: 8: 8:00 Range(36.3C - 37.2C ) (58 - 79 ) (16 - 20 ) (116 - 158 )/ (63 - 86 ) (95% - 99% ) As of 12-Nov-2022 04:10:00, patient is on 1 L/min of oxygen via room air. Highest temp of 37.2 C was recorded at 11/12 0:00 Pain reported at 11/12 9:53: 3 = Mild Recent Lab Results: Results: CBC: 11/12/2022 06:16 \ Hgb / \ 11.7 L / WBC Plt 12.7 H 164 / Hct \ / 39.3 L \ RBC: 4.25 L MCV: 92 BMP: 11/11/2022 17:52 NA+ Cl- BUN / 137 104 20 / ------ Glucose - 140 H K+ HCO3- Creat \ 3.8 24 1.12 \ Calcium : 9.3 Anion Gap : 13 CMP: 11/12/2022 06:16 NA+ Cl- BUN / 135 L 104 19 / ------ Glucose - 88 K+ HCO3- Creat \ 4.3 19 L 0.98 \ \ T Bili / \ 0.6 / AST x ---- x ALT 38 x ---- x 20 / Alk P \ / 70 \ Calcium : 8.8 Anion Gap : 16 Albumin : 3.3 L T Protein : 6.1 L Assessment and Plan: Daily Risk Screen: Does patient have an indwelling urinary catheteryes Plan for indwelling urinary catheter removal todayyes Code Status: Code StatusFull Code Assessment: Update at 1230. Patient is voiding spontaneously We will discharge to home Electronic Signatures: Franky Mattson) (Signed 12-Nov-2022 12:37) Authored: Service, Subjective Data, Objective Data, Assessment and Plan, Note Completion Last Updated: 12-Nov-2022 12:37 by Franky Mattson) Normal [facility] Daily Progress Note-Acute Care Surgery Service: Acute Care Surgery Subjective Data: GOPAL IRVING is a 72 year old Male who is Hospital Day # 2 and POD #1 for 1. Laparoscopic cholecystectomy with intraoperative cholangiogram;2. ;3. ;4. ;5. Additional Information: Today is the first day after cholecystectomy Generally comfortable Tolerating liquids Ambulated in room Failed to void, Hernandez placed Objective Data: Objective Information: T PRBPMAPSpO2 [id number]/7799% Date/Time11/12 4: 4: 4: 4: 4:10 Range(36.3C - 37.2C ) (58 - 79 ) (18 - 20 ) (116 - 158 )/ (63 - 79 ) (95% - 99% ) As of 12-Nov-2022 04:10:00, patient is on 1 L/min of oxygen via room air. Highest temp of 37.2 C was recorded at 11/12 0:00 Pain reported at 11/12 5:10: 3 = Mild T PRBPMAPSpO2 [id number]/7799% Date/Time11/12 4: 4: 4: 4: 4:10 Range(36.3C - 37.2C ) (58 - 79 ) (18 - 20 ) (116 - 158 )/ (63 - 79 ) (95% - 99% ) As of 12-Nov-2022 04:10:00, patient is on 1 L/min of oxygen via room air. Highest temp of 37.2 C was recorded at 11/12 0:00 Physical Exam by System: Constitutional: Looks comfortable Eyes: Sclera clear Gastrointestinal: Abdomen soft and nontender Dressings intact Genitourinary: Hernandez draining clear urine Medication: Medications: Continuous Medications ------ 1. Lactated Ringers Infusion: 1000 mL IntraVenous Scheduled Medications ------ 1. Aspirin Enteric Coated: 81 mg Oral Daily 2. Docusate: 100 mg Oral 2 Times a Day 3. Ferrous Sulfate: 325 mg Oral Daily 4. Heparin SubCutaneous: 5000 unit(s) SubCutaneous Every 8 Hours 5. Insulin Lispro Mild Corrective Scale: unit(s) SubCutaneous 3 Times a Day Before Meals 6. Metoprolol Succinate Extended Release: 50 mg Oral Daily 7. Nicotine 14 mg/ 24 hour TransDermal: 1 patch TransDermal Every 24 Hours 8. Oxybutynin: 5 mg Oral 9. Pantoprazole: 40 mg Oral 2 Times a Day 10. PARoxetine: 20 mg Oral Daily 11. Rosuvastatin: 20 mg Oral Daily 12. Valsartan: 160 mg Oral Daily PRN Medications ------ 1. Albuterol 2.5 mg - Ipratropium 0.5 mg/ 3 mL Neb Soln: 3 mL Inhalation Every 4 Hours 2. Albuterol 2.5 mg/ 3 mL Nebulizer Soln: 3 mL Inhalation Every 4 Hours 3. ceFAZolin 2 gram/ D5W 100 mL Premix IVPB: 100 mL IntraVenous Piggyback Once 4. Codeine 30 mg - Acetaminophen 300 m tablet(s) Oral Every 4 Hours 5. Dextrose 50% in Water Injectable: 25 gram(s) IntraVenous Push Every 15 Minutes 6. Glucagon Injectable: 1 mg IntraMuscular Every 15 Minutes 7. Lidocaine 2% (UROJET) Topical Gel: 5 mL Topical Every 4 Hours 8. Morphine Injectable: 2 mg IntraVenous Push Every 2 Hours 9. Morphine Injectable: 4 mg IntraVenous Push Every 2 Hours 10. Ondansetron Injectable: 4 mg IntraVenous Push Every 6 Hours 11. Polyethylene Glycol: 17 gram(s) Oral Daily 12. Sodium Chloride 0.9% Injectable Flush: 10 mL IntraVenous Flush Every 8 Hours and as Needed Recent Lab Results: Results: CBC: 11/12/2022 06:16 \ Hgb / \ 11.7 L / WBC Plt 12.7 H 164 / Hct \ / 39.3 L \ RBC: 4.25 L MCV: 92 BMP: 11/11/2022 17:52 NA+ Cl- BUN / 137 104 20 / ------ Glucose - 140 H K+ HCO3- Creat \ 3.8 24 1.12 \ Calcium : 9.3 Anion Gap : 13 I have reviewed these laboratory results: Glucose_POCT 12-Nov-2022 06:56:00 ResultValue Glucose-POCT 93 Complete Blood Count 12-Nov-2022 06:16:00 ResultValue White Blood Cell Count 12.7 H Nucleated Erythrocyte Count 0.0 Red Blood Cell Count 4.25 L HGB 11.7 L HCT 39.3 L MCV 92 MCHC 29.8 L PLT 164 RDW-CV 16.0 H Urinalysis with Culture if Indicated 12-Nov-2022 00:58:00 ResultValue Color, Urine YELLOW Reference Range: STRAW,YELLOW Appearance, Urine CLEAR Specific [place], Urine 1.018 pH, Urine 5.0 Protein, Urine 100(2+) A Glucose, Urine NEGATIVE Blood, Urine SMALL(1+) A Ketones, Urine NEGATIVE Bilirubin, Urine NEGATIVE Urobilinogen, Urine 2.0 H Nitrite, Urine NEGATIVE Leukocyte Esterase, Urine NEGATIVE Urinalysis, Microscopic 12-Nov-2022 00:58:00 ResultValue White Cells 0-5 Red Blood Cells 5-20 A Assessment and Plan: Daily Risk Screen: Does patient have an indwelling urinary catheteryes Plan for indwelling urinary catheter removal todayyes Code Status: Code StatusFull Code Assessment: Assessment/ Stable postop Plan/ Advance diet as tolerated DC Hernandez. If patient voids spontaneously, will discharge to home Electronic Signatures: Franky Mattson) (Signed 12-Nov-2022 08:00) Authored: Service, Subjective Data, Objective Data, Assessment and Plan, Note Completion Last Updated: 12-Nov-2022 08:00 by Franky Mattson) [facility] Daily Progress Note-General Internal Medicineon 11-12-2022 Daily Progress Note-General Internal Medicine Consult Type: subsequent visit/care Service: General Internal Medicine Subjective Data: GOPAL IRVING is a 72 year old Male who is Hospital Day # 2 and POD #1 for 1. Laparoscopic cholecystectomy with intraoperative cholangiogram;2. ;3. ;4. ;5. Patient seen and examined Sitting in recliner Having abd pain POD1 laparoscopic cholecystectomy Ehrnandez placed overnight, voiding trial this am General surgery indicates likely dc to home later today. Objective Data: Objective Information: T PRBPMAPSpO2 [id number]/8695% Date/Time11/12 8: 8: 8: 8: 8:00 Range(36.3C - 37.2C ) (58 - 79 ) (16 - 20 ) (116 - 158 )/ (63 - 86 ) (95% - 99% ) As of 12-Nov-2022 04:10:00, patient is on 1 L/min of oxygen via room air. Highest temp of 37.2 C was recorded at 11/12 0:00 Pain reported at 11/12 8:43: 6 = Moderate Physical Exam by System Constitutional: Well developed, awake/alert/oriented x3, no distress, alert and cooperative ENMT: mucous membranes moist, no apparent injury, no lesions seen Head/Neck: Neck supple, no apparent injury, thyroid without mass or tenderness, No JVD, trachea midline, no bruits Respiratory/Thorax: Patent airways, CTAB, normal breath sounds with good chest expansion, thorax symmetric Cardiovascular: Regular, rate and rhythm, no murmurs, 2+ equal pulses of the extremities, normal S 1and S 2 Gastrointestinal: Nondistended, soft, tender, surgical dressings in place dry and intact Genitourinary: Hernandez clear yellow Extremities: normal extremities, no cyanosis edema, contusions or wounds, no clubbing Neurological: alert and oriented x3, intact senses, motor, response and reflexes, normal strength Psychological: Appropriate mood and behavior Medication Medications: Continuous Medications ------ 1. Lactated Ringers Infusion: 1000 mL IntraVenous Scheduled Medications ------ 1. Aspirin Enteric Coated: 81 mg Oral Daily 2. Docusate: 100 mg Oral 2 Times a Day 3. Ferrous Sulfate: 325 mg Oral Daily 4. Heparin SubCutaneous: 5000 unit(s) SubCutaneous Every 8 Hours 5. Insulin Lispro Mild Corrective Scale: unit(s) SubCutaneous 3 Times a Day Before Meals 6. Metoprolol Succinate Extended Release: 50 mg Oral Daily 7. Nicotine 14 mg/ 24 hour TransDermal: 1 patch TransDermal Every 24 Hours 8. Oxybutynin: 5 mg Oral 9. Pantoprazole: 40 mg Oral 2 Times a Day 10. PARoxetine: 20 mg Oral Daily 11. Rosuvastatin: 20 mg Oral Daily 12. Valsartan: 160 mg Oral Daily PRN Medications ------ 1. Albuterol 2.5 mg - Ipratropium 0.5 mg/ 3 mL Neb Soln: 3 mL Inhalation Every 4 Hours 2. Albuterol 2.5 mg/ 3 mL Nebulizer Soln: 3 mL Inhalation Every 4 Hours 3. ceFAZolin 2 gram/ D5W 100 mL Premix IVPB: 100 mL IntraVenous Piggyback Once 4. Codeine 30 mg - Acetaminophen 300 m tablet(s) Oral Every 4 Hours 5. Dextrose 50% in Water Injectable: 25 gram(s) IntraVenous Push Every 15 Minutes 6. Glucagon Injectable: 1 mg IntraMuscular Every 15 Minutes 7. Lidocaine 2% (UROJET) Topical Gel: 5 mL Topical Every 4 Hours 8. Morphine Injectable: 2 mg IntraVenous Push Every 2 Hours 9. Morphine Injectable: 4 mg IntraVenous Push Every 2 Hours 10. Ondansetron Injectable: 4 mg IntraVenous Push Every 6 Hours 11. Polyethylene Glycol: 17 gram(s) Oral Daily 12. Sodium Chloride 0.9% Injectable Flush: 10 mL IntraVenous Flush Every 8 Hours and as Needed Recent Lab Results Results: I have reviewed these laboratory results: Complete Blood Count 12-Nov-2022 06:16:00 ResultValue White Blood Cell Count 12.7 H Nucleated Erythrocyte Count 0.0 Red Blood Cell Count 4.25 L HGB 11.7 L HCT 39.3 L MCV 92 MCHC 29.8 L PLT 164 RDW-CV 16.0 H Comprehensive Metabolic Panel 12-Nov-2022 06:16:00 ResultValue Glucose, Serum 88 NA 135 L K 4.3 CL 104 Bicarbonate, Serum 19 L Anion Gap, Serum 16 BUN 19 CREAT 0.98 GFR Male 82 Calcium, Serum 8.8 ALB 3.3 L ALKP 70 T Pro 6.1 L T Bili 0.6 Alanine Aminotransferase, Serum 20 Aspartate Transaminase, Serum 38 Magnesium, Serum 12-Nov-2022 06:16:00 ResultValue Magnesium, Serum 1.72 Phosphorus, Serum 12-Nov-2022 06:16:00 ResultValue Phosphorus, Serum 3.9 Assessment and Plan: Daily Risk Screen Does patient have an indwelling urinary catheteryes Plan for indwelling urinary catheter removal todayyes Code Status Code StatusFull Code Assessment: Patient initially presented with abdominal pain and abnormal liver function test. He was transferred to [facility]. He was found to have choledocholithiasis and evidence of cholangitis. He underwent emergency ERCP and stent placement. Stones were removed. Patient went on to convalesce. Patient presents now for cholecystectomy and admitted to Dr. Mattson and underwent Laparoscopic cholecystectomy with intraoperati (more content not included)... Normal [facility] Discharge [id number] 04-27-2 023 Discharge Profile2 Discharge Orders: Anticipated Discharge Date: Anticipated Discharge [id number] DNAR: Code Status at Discharge: Full Code Provider FINAL REVIEW of Orders: Final Review: Final Review of Medication Reconciliation and Orders Completedby Physician Reviewing ProviderFranky Mattson MD at 12-Nov-2022 12:40:39 Appointments: Follow-Up Appointment 01: Physician/Dept/ServiceDr. Mattson- General Surgery Reason for ReferralFollowup laparoscopy cholecystectomy Call to Schedule in10-14 days [phone] Electronic Signatures: Franky Mattson) (Signed 12-Nov-2022 12:40) Authored: Discharge Orders, Provider FINAL REVIEW of Orders, Gold Form - Insulation Board Head Saw Operator Summary Tammi Mcgarw (RN) (Signed 12-Nov-2022 13:33) Authored: Appointments Last Updated: 12-Nov-2022 13:33 by Tammi Mcgraw (RN) Normal [facility] GLUCOSE-POCTon 11-12-2022 Glucose [Mass/Vol] 116 mg/dL High 74 - 99 [facility] Comment on above: Performed By: #### G AIXA ####[id number] [place] [address] Glucose [Mass/Vol] 93 mg/dL Normal 74 - 99 [facility] Comment on above: Performed By: #### G AIXA ####[address] [address] Laboratory - Chemistry and C hemistry - challengeon 11-12-2022 Glucose [Mass/Vol] 116 mg/dL above high threshold 74 - 99 -[facility] [place] [address] Work Phone: Glucose [Mass/Vol] 93 mg/dL 74 - 99 [facility] [place] [address] Work Phone: Albumin BCP dye [Mass/Vol] 3.3 g/dL below low threshold 3.4 - 5.0 [facility] [place] [address] Work Phone: ALP [Catalytic activity/Vol] 70 U/L 33 - 136 -[place] [address] Work Phone: ALT With P-5'-P [Catalytic activity/Vol] 20 U/L 10 - 52 -[place] [address] Work Phone: Comment on above: Patients treated wit h Sulfasalazine may generate falsely decreased results for ALT. Anion gap [Moles/Vol] 16 mmol/L 10 - 20 [place] [address] Work Phone: AST With P-5'-P [Catalytic activity/Vol] 38 U/L 9 - 39 -[place] [address] Work Phone: Bilirubin [Mass/Vol] 0.6 mg/dL 0.0 - 1.2 [facility] [place] [address] Work Phone: Calcium [Mass/Vol] 8.8 mg/dL 8.6 - 10.3 -[place] [address] Work Phone: Chloride [Moles/Vol] 104 mmol/L 98 - 107 [facility] [place] [address] Work Phone: CO2 [Moles/Vol] 19 mmol/L below low threshold 21 - 32 -[place] [address] Work Phone: Creatinine [Mass/Vol] 0.98 mg/dL See Below [place] [address] Work Phone: Comment on above: Reference Range: 0.5 0 - 1.30 Glucose [Mass/Vol] 88 mg/dL 74 - 99 -[facility] [place] [address] Work Phone: Potassium [Moles/Vol] 4.3 mmol/L 3.5 - 5.3 [place] [address] Work Phone: Protein [Mass/Vol] 6.1 g/dL below low threshold 6.4 - 8.2 -[place] [address] Work Phone: Sodium [Moles/Vol] 135 mmol/L below low threshold 136 - 145 -[place] [address] Work Phone: Urea nitrogen [Mass/Vol] 19 mg/dL 6 - 23 [place] [address] Work Phone: Laboratory - Hematology and Cell countson 11-12-2022 Erythrocyte distribution width (RBC) [Ratio] 16.0 % above high threshold See Below [place] [address] Work Phone: Comment on above: Reference Range: 11. 5 - 14.5 Hematocrit (Bld) [Volume fraction] 39.3 % below low threshold See Below [place] [address] Work Phone: Comment on above: Reference Range: 41. 0 - 52.0 Hemoglobin (Bld) [Mass/Vol] 11.7 g/dL below low threshold See Below [place] [address] Work Phone: Comment on above: Reference Range: 13. 5 - 17.5 MCHC (RBC) [Mass/Vol] 29.8 g/dL below low threshold See Below [place] [address] Work Phone: Comment on above: Reference Range: 32. 0 - 36.0 MCV (RBC) [Entitic vol] 92 fL 80 - 100 [place] [id number] Work Phone: Platelets (Bld) [#/Vol] 164 10*3/uL 150 - 450 [place] [address] Work Phone: RBC (Bld) [#/Vol] 4.25 {x10E12/L} below low threshold See Below [place] [address] Work Phone: Comment on above: Reference Range: 4.5 0 - 5.90 WBC (Bld) [#/Vol] 12.7 10*3/uL above high threshold 4.4 - 11.3 [place] [address] Work Phone: MAGNESIUMon 11-12-2022 Magnesium [Mass/Vol] 1.72 mg/dL Normal 1.60 - 2.40 [facility] Comment on above: Performed By: #### M G ####[facility] [place] [address] Magnesium, Serumon 3 Magnesium [Mass/Vol] 1.72 mg/dL See Below MP-U niv [place] [address] Work Phone: Comment on above: Reference Range: 1.6 0 - 2.40 No Panel Informationon 11-12 82 {mL/min/1.73m2} >90 MP-Uni v [place] [address] Work Phone: Comment on above: CALCULATIONS OF BEV MATED GFR ARE PERFORMED USING THE 2020 CKD-EPI STUDY REFIT EQUATION WITHOUT THE RACE VARIABLE FOR THE IDMS-TRACEABLE CREATININE METHODS.https://jasn.asnjournals.org/content/early//A SN.5548290779 0.0 {/100_WBC} 0.0 - 0.0 MP-Univ [place] [address] Work Phone: OT Evaluation v2-occupationa l therapy - eval and treaton 11-12-2022 OT Evaluation v2-occupational therapy - eval and treat Rehab: Info: Mode of Treatmentoccupational therapy; eval and treat Time IN11:47 Time OUT12:09 Total Treatment [id number] Patient in ... at end of sessionbed, 3 railings up; alarm on Communicated with ... at end of sessionbedside nurse Patient Effortgood Symptoms Noted During/After Treatmentnone Patient Profile Reviewedyes Onset of Illness/Injury or Date of [id number] Reason for ReferralADL's; Safety Assessment Referring PhysicianFranky Mattson MD General Observations of PatientChart reviewed, cleared by RN to work with pt. On arrival, pt supine in bed with daughter and granddaughter at bedside. Pt in no apparent distress and willing to participate in therapy. Pertinent History of Current Functional ProblemPt came to [facility]: Post Operative Note - OR [Charted Location: [place] ] [Date of Service: 11-Nov-2022 11:27 Post Operative Note: PreOp Diagnosis: History of cholangitis requiring ERCP and stent Post-Procedure Diagnosis: Same Procedure: 1. Laparoscopic cholecystectomy with intraoperative cholangiogram Surgeon: Srinivasan Hearing Precautions/LimitationsWFL Precautions/Limitationsfal l precautions Limitations/Impairmentsend urance; safety/cognitive Ambulation Skills - Previous Level of FunctionPt lives in trailer home with with 3 KEVIN with rail. Daughter and granddaughter live nearby. Pt states he doesn't usually use AD, but admits to being an occasional furniture walker. Pt owns cane, walker, and scooter. Pt states he occasionally gets tripped up secondary to vertigo. Pt sleeps in hospital bed. assists him with bathing, has tub shower with GBs and chair. Indep with dressing. Able to get to and from bathroom I. Pt drives short distances when needed, otherwise and daughter provide transportation. Daughter grocery shops for pt. Line and Tubesbed alarm Vision/Cognition: Affect/Mental Status (Cognitive)WFL Orientation Status (Cognition)oriented x 3; states he is in [place] when asked, but could not remember the name of the hospital ROM: Upper Extremity: Range of Motionleft upper extremity ROM WNL; right upper extremity ROM WNL Mobility/Tone: Bed Mobility Assessment/Interventionssu pine to sit; sit to supine Vsworw-ng-Gxe Preston (Bed Mobility)contact guard Wmb-mw-Avrdpm Preston (Bed Mobility)contact guard Assistive Device (Bed Mobility)bed rails Comment, Bed Mobilitylog roll technique Transfer Assessment/Interventionssi t to stand transfer; stand to sit transfer Sit-Stand Preston (Transfers)contact guard Stand-Sit Preston (Transfers)contact guard Gait/Stairs Locomotiongait/ambulation independence; gait/ambulation assistive device Gait Locomotion (Gait)contact guard Assistive Device (Gait Training)R BADGER DISTILLER OPERATOR for safety ADL: BADL Assessment/Interventionupp er body dressing; lower body dressing Preston Level (Upper Body Dressing)set up; standby assist Preston Level (Lower Body Dressing)set up; standby assist Motor: Sitting, Static (Balance)good balance Sitting, Dynamic (Balance)fair plus Fke-xm-Dyrxj (Balance)fair plus Standing, Static (Balance)fair plus Standing, Dynamic (Balance)fair balance Sensory: Pre-Treatment Pain Rating6/10 Comment, Pre/Post Treatment Painabdomen Sensory General Assessmentno sensation deficits identified Health: Observed Emotional Statecooperative; pleasant Plan of Care Reviewed Withpatient; daughter Impression: OT [id number] weakness Occupational Therapy Prognosisgood Functional Level at Time of Evaluation (OT Eval)SBA Assessment (OT Eval)Pt pleasant and cooperative. Pt agrees he is at baseline level of function (which is independent). Pt does not have any OT needs at this time, and OT services will be discharged. Rehab Potential (OT Eval)good, to achieve stated therapy goals Therapy Frequency (OT Eval)evaluation only Outcomes Tools: Putting on and taking off regular lower body clothingnone Bathing (including washing, rinsing, drying)none Toileting, which includes using toilet, bedpan or urinalnone Putting on and taking off regular upper body clothingnone Taking care of personal grooming such as brushing teethnone Eating Mealsnone AM-PAC (OT) Total Score24 Education: Learnerpatient Methodverbal Outcome Evaluation2=meets goals/outcomes Topicrehab plan of care; precautions Education - TopicRole of OT Treatment: TreatmentPt was able to complete bed mobility independently. Pt with good sit balance on EOB. Pt was able to complete all transfers with supervision. Pt ambulated without AD in the room and fair+ balance. Pt with fair+ balance to stand at sink and complete grooming ADL's. Pt returned to and remained in bed with bed alarm on and call light within reach. DC Recommendations: Discharge Recommendationhome with no further OT; discharge OT Electronic Signatures: Ken Suero (more content not included)... Normal [facility] Order Reconciliationon 11-12 Order Reconciliation Page 1 Discharge Reconciliation Document Reconciliation Type: Discharge requested on behalf of Shaniqua Iraheta (Advanced Practice Nurse) done by Shaniqua Iraheta ([facility]) Discharge - Reconciliation: 12-Nov-2022 12:40 by: Franky Mattson) Discharge - Reset to Incomplete: 12-Nov-2022 13:34 by: Shaniqua Iraheta ([facility]) Discharge - Reconciliation: 12-Nov-2022 13:35 by: Shaniqua Iraheta ([facility]) Home Medications EnteredHOME MEDICATIONS AT DISCHARGE DateReconciliation Comment/ Additional Information Aspir 81 oral delayed release tablet 1 tab(s) orally once a day 05-Oct-2022 12:05 Aspir 81 oral delayed release tablet 1 tab(s) orally once a day 05-Oct-2022 12:05 Aspir 81 oral delayed release tablet is continued as Aspir 81 oral delayed release tablet codeine-acetaminophen 30 mg-300 mg oral tablet 1 tab(s) orally every 4 hours 11-Nov-2022 08:14 Discontinued; Discontinue from ORM esomeprazole 40 mg oral delayed release capsule 1 cap(s) orally 2 times a day 05-Oct-2022 12:05 esomeprazole 40 mg oral delayed release capsule 1 cap(s) orally 2 times a day 05-Oct-2022 12:05 esomeprazole 40 mg oral delayed release capsule is continued as esomeprazole 40 mg oral delayed release capsule ferrous sulfate 325 mg (65 mg elemental iron) oral tablet 1 tab(s) orally once a day 05-Oct-2022 12:08 ferrous sulfate 325 mg (65 mg elemental iron) oral tablet 1 tab(s) orally once a day 05-Oct-2022 12:08 ferrous sulfate 325 mg (65 mg elemental iron) oral tablet is continued as ferrous sulfate 325 mg (65 mg elemental iron) oral tablet hydrocodone-acetaminophen 5 mg-325 mg oral tablet 1 tab(s) orally every 6 hours, As Needed - for pain 08-Nov-2022 18:31 hydrocodone-acetaminophen 5 mg-325 mg oral tablet 1 tab(s) orally every 6 hours, As Needed - for pain 08-Nov-2022 18:31 hydrocodone-acetaminophen 5 mg-325 mg oral tablet is continued as hydrocodone-acetaminophen 5 mg-325 mg oral tablet metFORMIN 500 mg oral tablet, extended release 1 tab(s) orally 2 times a day 05-Oct-2022 12:06 metFORMIN 500 mg oral tablet, extended release 1 tab(s) orally 2 times a day 05-Oct-2022 12:06 metFORMIN 500 mg oral tablet, extended release is continued as metFORMIN 500 mg oral tablet, extended release metoprolol succinate 50 mg oral tablet, extended release 1 tab(s) orally once a day 05-Oct-2022 12:06 metoprolol succinate 50 mg oral tablet, extended release 1 tab(s) orally once a day 05-Oct-2022 12:06 metoprolol succinate 50 mg oral tablet, extended release is continued as metoprolol succinate 50 mg oral tablet, extended release oxyCODONE 10 mg oral tablet 1 tab(s) orally every 6 hours as needed for severe pain 08-Oct-2022 11:01 Discontinued; Discontinue from ORM PARoxetine 20 mg oral tablet 1 tab(s) orally once a day (at bedtime) 05-Oct-2022 12:06 PARoxetine 20 mg oral tablet 1 tab(s) orally once a day (at bedtime) 05-Oct-2022 12:06 PARoxetine 20 mg oral tablet is continued as PARoxetine 20 mg oral tablet rosuvastatin 40 mg oral tablet 0.5 tab(s) orally once a day (at bedtime) 05-Oct-2022 12:07 rosuvastatin 40 mg oral tablet 0.5 tab(s) orally once a day (at bedtime) 05-Oct-2022 12:07 rosuvastatin 40 mg oral tablet is continued as rosuvastatin 40 mg oral tablet tolterodine 2 mg oral capsule, extended release 1 cap(s) orally Wednesday, Wednesday, and 05-Oct-2022 12:08 tolterodine 2 mg oral capsule, extended release 1 cap(s) orally Wednesday, Wednesday, and 05-Oct-2022 12:08 tolterodine 2 mg oral capsule, extended release is continued as tolterodine 2 mg oral capsule, extended release valsartan 160 mg oral tablet 1 tab(s) orally once a day 08-Nov-2022 18:31 valsartan 160 mg oral tablet 1 tab(s) orally once a day 08-Nov-2022 18:31 valsartan 160 mg oral tablet is continued as valsartan 160 mg oral tablet Current OrdersDateHOME MEDICATIONS AT DISCHARGE DateReconciliation Comment/ Additional Information Albuterol 2.5 mg - Ipratropium 0.5 mg/ 3 mL Neb Soln (DUONEB)DOSE = 3 mL Inhalation Every 4 Hours via Nebulizer, PRN Wheezing 11-Nov-2022 15:04 Albuterol 2.5 mg - Ipratropium 0.5 mg/ 3 mL Neb Soln is not required Albuterol 2.5 mg/ 3 mL Nebulizer Soln (PROVENTIL)DOSE = 3 mL Inhalation Every 4 Hours via Nebulizer, PRN Shortness of Breath 11-Nov-2022 15:04 Albuterol 2.5 mg/ 3 mL Nebulizer Soln is not required Aspirin Enteric Coated Enteric Coated Tablet (ECOTRIN)DOSE = 81 mg Oral Daily 11-Nov-2022 14:58 Aspirin Enteric Coated is not required ceFAZolin 2 gram/ D5W 100 mL Premix IVPB (ANCEF)Once, PRN on callRecommended Infusion Time: 30 minute(s)Clinician Notes: Administer within 60 minutes of incision. 11-Nov-2022 08:14 ceFAZolin 2 gram/ D5W 100 mL Premix IVPB is not required Codeine 30 mg - Acetaminophen 300 mg Tablet (TYLENOL #3)DOSE = 1 tablet(s) Oral Every 4 Hours, PRN Pain - Mod (4-6) 11-Nov-2022 14:27 Codeine 30 mg - Acetaminophen 300 mg is not required Dextrose 50% in Water Injectable DOS (more content not included)... Normal [facility] PHOSPHORUSon 11-12-2022 Phosphate [Mass/Vol] 3.9 mg/dL Normal 2.5 - 4.9 [facility] Comment on above: Result Comment: The performance characteristics of phosphorus testing in heparinized plasma have been validated by the individual laboratory site where testing is performed. Testing on heparinized plasma is not approved by the FDA; however, such approval is not necessary. Performed By: #### P HOS ####[facility] [place] [address] PT Evaluation v2on 3 PT Evaluation v2 Rehab: Info: Time IN11:45 Time OUT12:09 Total Treatment [id number] Patient in ... at end of sessionbed, 3 railings up; alarm on; daughter and granddaughter at bedside Communicated with ... at end of sessionbedside nurse Patient Effortgood Symptoms Noted During/After Treatmentnone Patient Profile Reviewedyes Onset of Illness/Injury or Date of [id number] Reason for Referralimpaired mobility, impaired cognition/safety awareness; recent abdominal surgery Referring PhysicianFranky Mattson General Observations of PatientChart reviewed, cleared by RN to work with pt. On arrival, pt supine in bed with daughter and granddaughter at bedside. Pt in no apparent distress and willing to participate in therapy. Pertinent History of Current Functional ProblemPOD #1 Laparoscopic cholecystectomy with intraoperative cholangiogram Per EMR: Patient initially presented with abdominal pain and abnormal liver function test. He was transferred to [facility]. He was found to have choledocholithiasis and evidence of cholangitis. He underwent emergency ERCP and stent placement. Stones were removed. Patient went on to convalesce. Patient presents now for cholecystectomy PMH: Coronary artery disease History of multiple stents Preoperative cardiac clearance obtained Peripheral vascular disease Status post stenting of his iliacs Hypertension NIDDM Tobacco abuse and COPD Elevated lipids Hearing Precautions/LimitationsHOH , better at reading lips and speaking into L ear Precautions/Limitationsfal l precautions; abdominal precautions Ambulation Skills - Previous Level of FunctionPt lives in trailer home with with 3 KEVIN with rail. Daughter and granddaughter live nearby. Pt states he doesn't usually use AD, but admits to being an occasional furniture walker. Pt owns cane, walker, and scooter. Pt states he occasionally gets tripped up secondary to vertigo. Pt sleeps in hospital bed. assists him with bathing, has tub shower with GBs and chair. Indep with dressing. Able to get to and from bathroom I. Pt drives short distances when needed, otherwise and daughter provide transportation. Daughter grocery shops for pt. Vision/Cognition: Affect/Mental Status (Cognitive)WFL Orientation Status (Cognition)oriented x 3; states he is in [place] when asked, but could not remember the name of the hospital ROM: Lower Extremity: Range of Motionleft lower extremity ROM WFL; right lower extremity ROM WFL MMT: Lower Extremity: Manual Muscle Testing (MMT)left lower extremity strength WFL; right lower extremity strength WFL; assessed functionally secondary to abdominal surgery Mobility/Tone: Bed Mobility Assessment/Interventionssu pine to sit; sit to supine Kstrte-ph-Nlo Preston (Bed Mobility)contact guard Ugi-hx-Rjbfeq Preston (Bed Mobility)contact guard Assistive Device (Bed Mobility)bed rails Comment, Bed Mobilitylog roll technique Transfer Assessment/Interventionssi t to stand transfer; stand to sit transfer Sit-Stand Preston (Transfers)contact guard Stand-Sit Preston (Transfers)contact guard Gait/Stairs Locomotiongait/ambulation independence; gait/ambulation assistive device; distance ambulated Gait Locomotion (Gait)contact guard Assistive Device (Gait Training)R BADGER DISTILLER OPERATOR for safety Distance in Feet (Gait Training)250 ft Motor: Sitting, Static (Balance)good balance Sitting, Dynamic (Balance)fair plus Ehn-bt-Cexms (Balance)fair plus Standing, Static (Balance)fair plus Standing, Dynamic (Balance)fair balance Sensory: Pre-Treatment Pain Rating6/10 Comment, Pre/Post Treatment Painabdomen Sensory General Assessmentno sensation deficits identified Health: Observed Emotional Statecooperative; pleasant Plan of Care Reviewed Withpatient; daughter Impression: Criteria for Skilled Therapeutic Interventions Met (PT Eval)no problems identified which require skilled intervention Assessment (PT Eval)Pt ambulated around unit with no concerns or LOB. Pt denies any concerns about returning home upon discharge from the hospital. Pt appears to be at baseline level of function and has no skilled therapy needs at this time. Will DC PT orders at this time. Outcomes Tools: Turning from your back to your side while in a flat bed without using bedrails none Moving from lying on your back to sitting on the side of a flat bed without using bedrailsnone Moving to and from bed to chair (including a wheelchair)none Standing up from a chair using your arms (e.g. wheelchair or bedside chair) none To walk in hospital roomnone Climbing 3-5 steps with bushra lezama AM-PAC (PT) Total Score23 Education: Learnerpatient Barriers to Learningno barrier Methodverbal Outcome Evaluation2=meets goals/outcomes Topicrehab plan of care; fall prevention; proper use of adaptive equipment to increase safety and decrease fall risk Ed (more content not included)... Normal [facility] Phosphorus, Serumon 11-13-19 23 Phosphate [Mass/Vol] 3.9 mg/dL 2.5 - 4.9 MP-U niv [facility] [address] Work Phone: Comment on above: The performance lena acteristics of phosphorus testing in heparinized plasma have been validated by the individual laboratory site where testing is performed. Testing on heparinized plasma is not approved by the FDA; however, such approval is not necessary. UA MICROSCOPICon 11-12-2022 RBC 5-20 Abnormal 0-5 [facility] Comment on above: Performed By: #### M G #### [facility] [address] [place] [address] WBC 0-5 Normal 0-5 [facility] Comment on above: Performed By: #### M G #### [facility] [address] [facility] [place] [address] URINALYSIS WITH CULTURE IF I NDICATEDon 11-12-2022 Appearance (U) CLEAR Normal CLEAR [facility] Comment on above: Performed By: #### T RPHS #### [address] [place] [address] Bilirubin Ql (U) Negative Normal NEGATIVE [facility] Comment on above: Performed By: #### T RPHS #### [address] [place] [address] Color (U) YELLOW Normal STRAW,YELL OW [facility] Comment on above: Performed By: #### T RPHS #### [address] [address] Glucose Ql (U) Negative Normal NEGATIVE [facility] Comment on above: Performed By: #### T RPHS #### [address] [address] Hemoglobin Ql (U) SMALL(1+) Abnormal NEGATIVE [facility] Comment on above: Performed By: #### T RPHS #### [address] [address] Ketones Ql (U) Negative Normal NEGATIVE [facility] Comment on above: Performed By: #### T RPHS #### [address] [address] Leukocyte esterase Test strip Ql (U) Negative Normal NEGATIVE [facility] Comment on above: Performed By: #### T RPHS #### [address] [address] Nitrite Ql (U) Negative Normal NEGATIVE [facility] Comment on above: Performed By: #### T RPHS #### [address] [address] pH (U) 5.0 [pH] Normal 5.0 - 8.0 [facility] Comment on above: Performed By: #### T RPHS #### [address] [address] Protein Ql (U) 100(2+) Abnormal NEGATIVE [facility] Comment on above: Performed By: #### T RPHS #### [address] [place] [address] Specific gravity (U) [Rel density] 1.018 Normal 1.005 - 1.035 [facility] Comment on above: Performed By: #### T RP #### [address] [place] [address] Urobilinogen (U) [Mass/Vol] 2.0 mg/dL High 0.0 - 1.9 [facility] Comment on above: Result Comment: Due to a manufacturing issue, low positive urobilinogen results may be falsely positive. Correlate with urine bilirubin and additional clinical/laboratory findings to assess the risk of hemolytic anemia or liver disease. If clinically indicated, repeat testing with an alternate method is available by contacting the laboratory within 24 hours. . Some pigments and medications may cause a false positive urobilinogen. Performed By: #### T RP #### [address] [place] [address] Lab Specimen Source Normal [facility] Comment on above: Performed By: #### T RP #### [address] [place] [address] Performed By: #### M G #### [address] [place] [address] Color (U) YELLOW See Below [place] [address] Work Phone: Comment on above: SOURCE: Reference Ra nge: STRAW,YELLOW Glucose Ql (U) Negative NEGATIVE [place] [address] Work Phone: Ketones Ql (U) Negative NEGATIVE [place] [address] Work Phone: Leukocyte esterase Test strip Ql (U) Negative NEGATIVE [place] [address] Work Phone: pH (U) 5.0 [pH] 5.0 - 8.0 [place] [address] Work Phone: Protein (U) [Mass/Vol] 100(2+) Abnormal NEGATIVE [place] [address] Work Phone: RBC (U) [#/Vol] SMALL(1+) Abnormal NEGATIVE [place] [address] Work Phone: Specific gravity (U) [Rel density] 1.018 1 See Below [place] [address] Work Phone: Comment on above: Reference Range: 1.0 05 - 1.035 URINALYSIS WITH CULTURE IF INDICATED Negative NEGATIVE [place] [address] Work Phone: URINALYSIS WITH CULTURE IF INDICATED 2.0 mg/dL above high threshold 0.0 - 1.9 [place] [address] Work Phone: Comment on above: Due to a manufacturi ng issue, low positive urobilinogen results may be falsely positive. Correlate with urine bilirubin and additional clinical/laboratory findings to assess the risk of hemolytic anemia or liver disease. If clinically indicated, repeat testing with an alternate method is available by contacting the laboratory within 24 hours..Some pigments and medications may cause a false positive urobilinogen. URINALYSIS WITH CULTURE IF INDICATED CLEAR CLEAR [place] [address] Work Phone: Urinalysis, Microscopicon Urinalysis, Microscopic 5-20 Abnormal 0-5 [place] [address] Work Phone: Urinalysis, Microscopic 0-5 0-5 [place] [address] Work Phone: Comment on above: SOURCE: BASIC METABOLIC PANELon 04- Anion gap [Moles/Vol] 13 mmol/L Normal 10 - 20 [facility] Comment on above: Performed By: #### M G #### [facility] [address] [place] [address] Calcium [Mass/Vol] 9.3 mg/dL Normal 8.6 - 10.3 [facility] Comment on above: Performed By: #### M G #### [facility] [address] [place] [address] Chloride [Moles/Vol] 104 mmol/L Normal 98 - 107 [facility] Comment on above: Performed By: #### M G #### [address] [place] [address] Creatinine [Mass/Vol] 1.12 mg/dL Normal 0.50 - 1.30 [facility] Comment on above: Performed By: #### M G #### [address] [place] [address] GFR/1.73 sq M.predicted among non-blacks MDRD (S/P/Bld) [Vol rate/Area] 70 mL/min/{1.73_m2} Normal >90 [facility] Comment on above: Result Comment: CALC ULATIONS OF ESTIMATED GFR ARE PERFORMED USING THE 2020 CKD-EPI STUDY REFIT EQUATION WITHOUT THE RACE VARIABLE FOR THE IDMS-TRACEABLE CREATININE METHODS. https://jasn.asnjournals.org/content/early//ASN.96378 [address] Performed By: #### M G #### [address] [place] [address] Glucose [Mass/Vol] 140 mg/dL High 74 - 99 [facility] Comment on above: Performed By: #### M G #### [address] [address] HCO3 (Bld) [Moles/Vol] 24 mmol/L Normal 21 - 32 [facility] Comment on above: Performed By: #### M G #### [address] [place] [address] Potassium [Moles/Vol] 3.8 mmol/L Normal 3.5 - 5.3 [facility] Comment on above: Performed By: #### M G #### [address] [address] Sodium [Moles/Vol] 137 mmol/L Normal 136 - 145 [facility] Comment on above: Performed By: #### M G #### [address] [address] Urea nitrogen [Mass/Vol] 20 mg/dL Normal 6 - 23 [facility] Comment on above: Performed By: #### M G #### [address] [place] [address] CBCon 11-11-2022 Erythrocyte distribution width (RBC) [Ratio] 15.9 % High 11.5 - 14.5 [facility] Comment on above: Performed By: #### M G #### [address] [place] [address] Hematocrit (Bld) [Volume fraction] 41.3 % Normal 41.0 - 52.0 [facility] Comment on above: Performed By: #### M G #### [address] [place] [address] Hemoglobin (Bld) [Mass/Vol] 12.8 g/dL Low 13.5 - 17.5 [facility] Comment on above: Performed By: #### M G #### [address] [place] [address] MCHC (RBC) [Mass/Vol] 31.0 g/dL Low 32.0 - 36.0 [facility] Comment on above: Performed By: #### M G #### [address] [place] [address] MCV (RBC) [Entitic vol] 89 fL Normal 80 - 100 [facility] Comment on above: Performed By: #### M G #### [address] [place] [address] NUCLEATED RBC 0.0 /100 WBC Normal 0.0 - 0.0 [facility] Comment on above: Performed By: #### M G #### [address] [place] [address] Platelets (Bld) [#/Vol] 185 10*3/uL Normal 150 - 450 [facility] Comment on above: Performed By: #### M G #### [address] [place] [address] RBC 4.62 x10E12/L Normal 4.50 - 5.90 [facility] Comment on above: Performed By: #### M G #### [address] [place] [address] WBC (Bld) [#/Vol] 17.8 10*3/uL High 4.4 - 11.3 [facility] Comment on above: Performed By: #### M G #### [facility] [address] [facility] [place] [address] Consult-General Internal Med joanna 11-11-2022 Consult-General Internal Medicine Service: Service: General Internal Medicine Consult Consult requested by (Attending Name): Franky Mattson Reason: Status post lap rachna Need help with COPD and coronary artery disease and hypertension and diabetes Dr. Burgess said to call you History of Present Illness: Admission Reason: History of cholangitis requiring ERCP and stent HPI: GOPAL IRVING is a 72 year old Male presented to [facility] for elective cholecystectomy and admitted to general surgery. Hospitalist was consulted for medical management. Per medical records 11/09-Patient initially presented with abdominal pain and abnormal liver function test. He was transferred to [facility]. He was found to have choledocholithiasis and evidence of cholangitis. He underwent emergency ERCP and stent placement. Stones were removed. Patient went on to convalesce. Patient underwent laparoscopic cholecystectomy with intraoperative cholangiogram today with Dr. Mattson. Patient was seen post op, currently sleeping awakens to voice, NAD. Past medical history: AAA status post endovascular repair, known left iliac artery aneurysm, two vessel CAD, CT, COPD, DM2, HTN, HLD, nicotine dependency Past surgical history: AAA repair 07/2021, cardiac cath with stent placement, eye surgery, ear surgery, prostrate biopsy, transurethral resection of prostrate Social history: 09/19-1 PPD smoker, no alcohol, no recreational drug use Family history: non contributory to admission Review Family/Social History and ROS: Respiratory: NEGATIVE: Shortness of Breath Cardiac: NEGATIVE: Chest Pain Gastrointestinal: POSITIVE: Abdominal Pain; COMMENTS: post op Allergies: No Known Allergies: Objective: Objective Information: Pain reported at 11/11 13:30: 3 = Mild Physical Exam by System Constitutional: Drowsy, awakens, told me his name, falls back asleep, NAD Respiratory/Thorax: Patent airways, CTAB, normal breath sounds with good chest expansion, thorax symmetric Cardiovascular: Regular, rate and rhythm Gastrointestinal: Nondistended, soft, +tender, surgical sites dry and intact. mildly tender with soft palpation Extremities: normal extremities, no cyanosis edema, contusions or wounds, no clubbing Neurological: drowsy falls back asleep, post op Psychological: drowsy Medications Medications: Continuous Medications ------ 1. Lactated Ringers Infusion: 1000 mL IntraVenous Scheduled Medications ------ 1. Aspirin Enteric Coated: 81 mg Oral Daily 2. Docusate: 100 mg Oral 2 Times a Day 3. Ferrous Sulfate: 325 mg Oral Daily 4. Heparin SubCutaneous: 5000 unit(s) SubCutaneous Every 8 Hours 5. Insulin Lispro Mild Corrective Scale: unit(s) SubCutaneous 3 Times a Day Before Meals 6. Metoprolol Succinate Extended Release: 50 mg Oral Daily 7. Nicotine 14 mg/ 24 hour TransDermal: 1 patch TransDermal Every 24 Hours 8. Oxybutynin: 5 mg Oral 9. Pantoprazole: 40 mg Oral 2 Times a Day 10. PARoxetine: 20 mg Oral Daily 11. Rosuvastatin: 20 mg Oral Daily 12. Valsartan: 160 mg Oral Daily PRN Medications ------ 1. Albuterol 2.5 mg - Ipratropium 0.5 mg/ 3 mL Neb Soln: 3 mL Inhalation Every 4 Hours 2. Albuterol 2.5 mg/ 3 mL Nebulizer Soln: 3 mL Inhalation Every 4 Hours 3. ceFAZolin 2 gram/ D5W 100 mL Premix IVPB: 100 mL IntraVenous Piggyback Once 4. Codeine 30 mg - Acetaminophen 300 m tablet(s) Oral Every 4 Hours 5. Dextrose 50% in Water Injectable: 25 gram(s) IntraVenous Push Every 15 Minutes 6. Glucagon Injectable: 1 mg IntraMuscular Every 15 Minutes 7. Morphine Injectable: 2 mg IntraVenous Push Every 2 Hours 8. Morphine Injectable: 4 mg IntraVenous Push Every 2 Hours 9. Ondansetron Injectable: 4 mg IntraVenous Push Every 6 Hours 10. Polyethylene Glycol: 17 gram(s) Oral Daily 11. Sodium Chloride 0.9% Injectable Flush: 10 mL IntraVenous Flush Every 8 Hours and as Needed Recent Lab Results Results: I have reviewed these laboratory results: Glucose_POCT Trending View [id number] 11:48:00 11-Nov-2022 08:25:00 [id number] H 106 H Assessment: Patient initially presented with abdominal pain and abnormal liver function test. He was transferred to [facility]. He was found to have choledocholithiasis and evidence of cholangitis. He underwent emergency ERCP and stent placement. Stones were removed. Patient went on to convalesce. Patient presents now for cholecystectomy and admitted to Dr. Mattson and underwent Laparoscopic cholecystectomy with intraoperative cholangiogram today. Hospitalist placed on consult for medical management. Impression: s/p Laparoscopic cholecystectomy with intraoperative cholangiogram History of cholangitis requiring ERCP and stent hx COPD hx hypertension hx hyperlipidemia hx daily nicotine dependency hx (more content not included)... Normal [facility] GLUCOSE-POCTon 11-11-2022 Glucose [Mass/Vol] 134 mg/dL High 74 - 99 [facility] Comment on above: Performed By: #### M G #### [address] [address] Glucose [Mass/Vol] 117 mg/dL High 74 - 99 [facility] Comment on above: Performed By: #### G AIXA ####[address] [address] Glucose [Mass/Vol] 106 mg/dL High 74 - 99 [facility] Comment on above: Performed By: #### M G #### [address] [address] Laboratory - Chemistry and C hemistry - challengeon 11-11-2022 Glucose [Mass/Vol] 134 mg/dL above high threshold 74 - 99 -[facility] 450 Work Phone: Anion gap [Moles/Vol] 13 mmol/L 10 - 20 [facility] [place] [address] Work Phone: Calcium [Mass/Vol] 9.3 mg/dL 8.6 - 10.3 [facility] [address] Work Phone: Chloride [Moles/Vol] 104 mmol/L 98 - 107 [facility] [place] [address] Work Phone: CO2 [Moles/Vol] 24 mmol/L 21 - 32 [place] [address] Work Phone: Creatinine [Mass/Vol] 1.12 mg/dL See Below [place] [address] Work Phone: Comment on above: Reference Range: 0.5 0 - 1.30 Glucose [Mass/Vol] 140 mg/dL above high threshold 74 - 99 [place] [address] Work Phone: Potassium [Moles/Vol] 3.8 mmol/L 3.5 - 5.3 [place] [address] Work Phone: Sodium [Moles/Vol] 137 mmol/L 136 - 145 -Uni v [place] [address] Work Phone: Urea nitrogen [Mass/Vol] 20 mg/dL 6 - 23 [place] [address] Work Phone: Glucose [Mass/Vol] 117 mg/dL above high threshold 74 - 99 [place] [address] Work Phone: Glucose [Mass/Vol] 106 mg/dL above high threshold 74 - 99 [place] [address] Work Phone: Laboratory - Hematology and Cell countson 11-11-2022 Erythrocyte distribution width (RBC) [Ratio] 15.9 % above high threshold See Below [place] [address] Work Phone: Comment on above: Reference Range: 11. 5 - 14.5 Hematocrit (Bld) [Volume fraction] 41.3 % See Below [place] [address] Work Phone: Comment on above: Reference Range: 41. 0 - 52.0 Hemoglobin (Bld) [Mass/Vol] 12.8 g/dL below low threshold See Below [place] [address] Work Phone: Comment on above: Reference Range: 13. 5 - 17.5 MCHC (RBC) [Mass/Vol] 31.0 g/dL below low threshold See Below [place] [address] Work Phone: Comment on above: Reference Range: 32. 0 - 36.0 MCV (RBC) [Entitic vol] 89 fL 80 - 100 [place] [address] Work Phone: Platelets (Bld) [#/Vol] 185 10*3/uL 150 - 450 [place] [address] Work Phone: RBC (Bld) [#/Vol] 4.62 {x10E12/L} See Below [place] [address] Work Phone: Comment on above: Reference Range: 4.5 0 - 5.90 WBC (Bld) [#/Vol] 17.8 10*3/uL above high threshold 4.4 - 11.3 [place] [address] Work Phone: No Panel Informationon 11-11 70 {mL/min/1.73m2} >90 [place] [address] Work Phone: Comment on above: CALCULATIONS OF BEV MATED GFR ARE PERFORMED USING THE 2020 CKD-EPI STUDY REFIT EQUATION WITHOUT THE RACE VARIABLE FOR THE IDMS-TRACEABLE CREATININE METHODS.https://jasn.asnjournals.org/content//A SN.1254446280 0.0 {/100_WBC} 0.0 - 0.0 [place] [address] Work Phone: Operative Reports - Winn on 11-11-2022 Operative Reports - [place] SURGEON: Franky Mattson MD PREOPERATIVE DIAGNOSIS: History of choledocholithiasis and prior placement of stent, cholelithiasis. POSTOPERATIVE DIAGNOSIS: History of choledocholithiasis and prior placement of stent, cholelithiasis. PROCEDURE PERFORMED: Laparoscopic cholecystectomy with intraoperative cholangiogram. VOLLEYBALL COACH: SA. ANESTHESIA: General. INDICATION FOR PROCEDURE: The patient is a 72-year-old male with a prior history of cholangitis, ERCP, stent placement and subsequent recovery. He presents now for cholecystectomy. Risks, benefits, indications for this reviewed with him and his family. Potential bleeding, infection, CT, PE, , etc. were reviewed. The anticipated convalescence was reviewed. Potential need to convert from a laparoscopic to an open procedure reviewed. All questions were answered and consent was obtained. All parties understood. The patient carried higher than average risk for adverse events given pre-existing cardiac and pulmonary issues. DESCRIPTION OF PROCEDURE: The patient was taken to the operating room, placed on table in supine position. General anesthesia was obtained. Abdomen prepped and draped in a sterile fashion. Antibiotics were given. DVT prophylaxis obtained using subcutaneous heparin, placement of external pneumatic compression stockings. After prepping the abdomen, an open cutdown was performed. Incision made at the umbilicus and dissection carried down to the fascia. The fascia was opened. The abdomen entered. There were no adhesions at this level. Blunt 10 mm port was secured. Pneumoperitoneum was obtained. Patient was placed in reverse Trendelenburg position and rolled to his left side. A 5/12 port was placed in the epigastrium and two 5 mm ports were placed in the right upper quadrant. All ports were placed under direct vision. A great many omental adhesions completely obscuring the gallbladder were initially encountered. These were all taken down and the gallbladder exposed. Gallbladder was now placed on cephalad traction. Distal gallbladder was now exposed and Calot's triangle dissected. Intraoperative cholangiography with fluoroscopy was now carried out. It was a normal study. Again, the structure was cannulated with the cystic duct. There was good visualization. Left and right hepatic biliary radicals. The biliary stent was visualized. There was no residual choledocholithiasis and I drained into the duodenum. Again, this was thought to be a normal postprocedure study. Cystic duct was divided. It was controlled with clips and divided. Arterial branches were controlled with clips as indicated. Gallbladder removed from its bed uneventfully. Just before completely excising the gallbladder, the bed was inspected and noted to be hemostatic. Prior placed clips were inspected, noted to be secure. Gallbladder was completely dissected, placed in a bag and removed from the field. Irrigation was performed. Counts reported as correct. Cutdown site was closed with interrupted 0 Vicryl. Skin wounds were closed with shirlene. The patient tolerated the procedure well. Franky Mattson MD EST EST DICTATION NUMBER: [id number] INTERNAL JOB NUMBER: [id number] CC: MK DOEKETAN Electronic Signatures: Franky Mattson () (Signed on 12-Nov-2022 07:25) Authored Unsigned, Draft (SYS GENERATED) (Entered on 11-Nov-2022 12:43) Entered Last Updated: 12-Nov-2022 07:25 by Franky Mattson) [facility] Order Reconciliationon 11-11 Order Reconciliation Page 1 Admission Reconciliation Document Reconciliation Type: Admission from OR requested on behalf of Erin Silva (Advanced Practice Nurse) done by Erin Silva ([employer]) Admission from OR - Reconciliation: 11-Nov-2022 14:58 by: Erin Silva ([employer] [facility]) Home MedicationsEnteredLast Dose TakenReconciled with current Order Reconciliation Comment/ Additional Information Aspir 81 oral delayed release tablet 1 tab(s) orally once a [id number]-Nov-2022 AM Aspirin Enteric Coated Enteric Coated Tablet (ECOTRIN)DOSE = 81 mg Oral DailyAspir 81 oral delayed release tablet is continued and suspended as Aspirin Enteric Coated codeine-acetaminophen 30 mg-300 mg oral tablet 1 tab(s) orally every 4 hours 11-Nov-2022 Reviewed and Held esomeprazole 40 mg oral delayed release capsule 1 cap(s) orally 2 times a day [id number] AM Pantoprazole Enteric Coated Tablet (PROTONIX)DOSE = 40 mg Oral 2 Times a DayNotes from Pharmacy: Substitution for Esomeprazole 40 mg Oral Capsule Dailyesomeprazole 40 mg oral delayed release capsule continued as the inpatient order Pantoprazole ferrous sulfate 325 mg (65 mg elemental iron) oral tablet 1 tab(s) orally once a [id number] AM Ferrous Sulfate Tablet (FEOSOL)DOSE = 325 mg Oral Dailyferrous sulfate 325 mg (65 mg elemental iron) oral tablet continued as the inpatient order Ferrous Sulfate hydrocodone-acetaminophen 5 mg-325 mg oral tablet 1 tab(s) orally every 6 hours, As Needed - for [id number] UNKNOWN Reviewed and Held metFORMIN 500 mg oral tablet, extended release 1 tab(s) orally 2 times a day [id number] AM Reviewed and Held metoprolol succinate 50 mg oral tablet, extended release 1 tab(s) orally once a [id number] 6:00 AM Metoprolol Succinate Extended Release Tablet, Extended Release (TOPROL-XL)DOSE = 50 mg Oral Dailymetoprolol succinate 50 mg oral tablet, extended release continued as the inpatient order Metoprolol Succinate Extended Release oxyCODONE 10 mg oral tablet 1 tab(s) orally every 6 hours as needed for severe [id number] UNKNOWN Reviewed and Held PARoxetine 20 mg oral tablet 1 tab(s) orally once a day (at bedtime) PM PARoxetine Tablet (PAXIL)DOSE = 20 mg Oral Daily PARoxetine 20 mg oral tablet continued as the inpatient order PARoxetine rosuvastatin 40 mg oral tablet 0.5 tab(s) orally once a day (at bedtime) PM Rosuvastatin Tablet (CRESTOR)DOSE = 20 mg Oral Dailyrosuvastatin 40 mg oral tablet continued as the inpatient order Rosuvastatin tolterodine 2 mg oral capsule, extended release 1 cap(s) orally Wednesday, Wednesday, and Oxybutynin Tablet (DITROPAN)DOSE = 5 mg Oral ( every 1 week: 08:00, :, :, :, , )Notes from Pharmacy: Substitution for Tolterodine ER (Detrol LA) 2 mg Oral Dailytolterodine 2 mg oral capsule, extended release continued as the inpatient order Oxybutynin valsartan 160 mg oral tablet 1 tab(s) orally once a [id number] AM Valsartan Tablet (DIOVAN)DOSE = 160 mg Oral Dailyvalsartan 160 mg oral tablet continued as the inpatient order Valsartan Additional Current Orders ceFAZolin 2 gram/ D5W 100 mL Premix IVPB (ANCEF)Once, PRN on callRecommended Infusion Time: 30 minute(s)Clinician Notes: Administer within 60 minutes of incision. Codeine 30 mg - Acetaminophen 300 mg Tablet (TYLENOL #3)DOSE = 1 tablet(s) Oral Every 4 Hours, PRN Pain - Mod (4-6) Heparin SubCutaneous DOSE = 5,000 unit(s) SubCutaneous Every 8 HoursNotes from Pharmacy: Note Concentration Prior to Administration Lactated Ringers Infusion IV Bag Volume = 1,000 mL Run at: 75 mL/hr IntraVenous Morphine Injectable DOSE = 2 mg IntraVenous Push Every 2 Hours, PRN Pain - Mild (1-3) Morphine Injectable DOSE = 4 mg IntraVenous Push Every 2 Hours, PRN Pain - Severe (7-10) Sodium Chloride 0.9% Injectable Flush via Peripheral LineVolume = 10 mL IntraVenous Flush Every 8 Hours and as Needed Normal [facility] Patient Profile - Preop v3on 11-11-2022 Patient Profile - Preop v3 Patient Profile - Preop: Initial Info: Patient DemographicsName: GOPAL IRVING Date: 1950 Address: [address] [place] [address] Primary Phone [phone] How to be Addressedtommy Spoken Language PreferredEnglish Source of Informationpatient Stated Reason for Admissionremoving gall bladder Primary Contact Name and Numberdaughter Limitations on Visitors/Phone Callsnone Medications Brought to Hospitalno General Health: Weight in kg57.1 kilogram(s) Weight in tht861.8 pound(s) Weight Methodstated Height in feet5 feet Height in inches7.95 inch(es) Height in cm172.5 centimeter(s) Height Methodstated BMI (kg/m2)19.189 square meter Patient or Family Member Reaction to Anesthesiano previous reaction Blood Avoidance/Restrictionsnone Previous Transfusion Reactionno Equipment Currently Used at Homewheelchair; cane, quad/straight Health Mgmt: Symptoms/Conditions Managed at Homecardiovascular; HEENT (head, eyes, ears, nose, throat); gastrointestinal; musculoskeletal Barriers to Managing Healthnone Relationship/Environ: Lives Withdependent child(dez) Living Arrangementshouse Resource/Environmental Concernsnone Anticipated Transition [place] [facility] Anticipated at Transitionnone Tobacco Use: Tobacco Useyes Tobacco Typecigarettes Last Tobacco [id number] Number of Packs per Day1 Pre-op Checklist: Arrival [id number] Arrival Time08:30 NPOyes Last Food [id number] 17:00 Last Clear Fluid [id number]-[id number] 06:00 ID Band On Patientpatient ID (name), allergy Consent Signedyes H&P Completeyes Anesthesia Assessment Completedyes EKG Performedyes Chest X-Ray Performednot ordered Preop Antibioticssent to OR Beta-richard Last Dose Date/Ykyn02-Vdb-1653 06:00 COVID 19 Results in Last 7 daysnot ordered Glucose [id number] Type and Screen Resultedn/a Chlorhexadine Bath Givennot applicable Nasal Antiseptic Appliednot applicable Soap and Water Bath the Night Before Surgeryyes Hair Washed with Shampooyes Bowel Prepno Surgical Site Infection Preventionyes Pain Scales and Managementyes Additional Information: Information Review: Allergies, Home Meds and Significant Events have been Reviewed and Verified with Patient/Familyyes Allergy, Intolerance, Adverse Event: Allergies: No Known Allergies: Active Electronic Signatures: Milagro Bobby (STAFF N) (Signed 11-Nov-2022 09:34) Authored: Initial Info, General Health, Health Mgmt, Relationship/Environ, Tobacco Use, Pre-op Checklist, Additional Information Last Updated: 11-Nov-2022 09:34 by Milagro Bobby (STAFF N) Normal [facility] Radiologyon 11-11-2022 Fluoroscopy duration Please click on the link to view the study images Normal -[facility] 450 Work Phone: [facility] Surgical Pathology Depar tmenton 11-11-2022 [facility] Surgical Pathology Department Name GOPAL IRVING Pathologist: JAMIN RUIZ M.D. Date of Procedure: 11/11/2022 Date Received: 11/11/2022 Date Reported 11/30/2022 Submitting Physician: FRANKY MATTSON MD Location: [facility] Copy To/Referring/Attending: ALYSSIA WEBER MD Other External # FINAL DIAGNOSIS GALLBLADDER, CHOLECYSTECTOMY: -- CHRONIC CHOLECYSTITIS AND CHOLELITHIASIS. Electronically Signed Out By JAMIN RUIZ M.D./ALCON By the signature on this report, the individual or group listed as making the Final Interpretation/Diagnosis certifies that they have reviewed this case. Diagnostic interpretation performed at [address] [place] [address] Clinical History: Clinical Diagnosis History: a 72 year old Male who presents for elective cholecystectomy. Specimens Submitted As: A: GALLBLADDER Gross Description: Received in formalin, labeled with the patient's name and hospital number and A, gallbladder , is an intact gallbladder, opened for fixation, measuring 7.5 x 2.7 x 1.8 cm. The serosal surface is smooth and fatty. The wall measures up to 0.1 cm in greatest thickness. Calculi are present and are brown-black, multifaceted and range from 0.3 cm to 0.6 cm in greatest diameter. A calculus is impacted in the cystic duct. The mucosal surface is musa and velvety. Geophysical Drafter sections consisting of the cystic duct margin and gallbladder wall are submitted in one cassette. GURMEET gurmeet/11/26/2022 [facility] Department of Pathology [address] [place] [address] Normal [facility] Comment on above: Performed By: #### U HCS #### [facility] Surgical Pathology Department [address] [place] [address] Clinical Intervention - Phar meggan 11-08-2022 Clinical Intervention - Pharmacy Pharmacist's Clinical Intervention: Is this intervention medication reconciliation related: yes, HISTORY CALL Electronic Signatures: Paulette Lawson ([employer]) (Signed 08-Nov-2022 18:32) Authored: Pharmacist's Clinical Intervention Last Updated: 08-Nov-2022 18:32 by Paulette Lawson ([employer]) Normal [facility] AMYLASEon 10-28-2022 Amylase [Catalytic activity/Vol] 41 U/L Normal 25-115 [facility] Comment on above: Performed By: #### V ITAD, PSASC #### [facility] [address] [place] [address] [address] Charlotte Awan CBC AUTO DIFFon 10-28-2022 BASO # 0.1 103/ul Normal 0.0-0.1 [facility] Comment on above: Performed By: #### V ITAD, PSASC #### [facility] [address] [place] [address] Dr. Charlotte Awan Basophils/100 WBC (Bld) 1.2 % Normal 0.2-2.0 [facility] Comment on above: Performed By: #### V ITAD, PSASC #### [facility] [address] [place] [address] Dr. Charlotte Awan EO # 0.8 103/ul Critically high 0.0-0.7 [facility] Comment on above: Performed By: #### V ITAD, PSASC #### [facility] [address] [place] [address] Dr. Charlotte Awan Eosinophils/100 WBC (Bld) 7.9 % Critically high 0.9-7.0 [facility] Comment on above: Performed By: #### V ITAD, PSASC #### [facility] [address] [place] [address] Dr. Charlotte Awan Erythrocyte distribution width (RBC) [Ratio] 16.0 % Critically high 11.0-15.0 [facility] Comment on above: Performed By: #### V ITAD, PSASC #### [facility] [address] [place] [address] Dr. Charlotte Awan Hematocrit (Bld) [Volume fraction] 38.9 % Critically low 42.0-54.0 [facility] Comment on above: Performed By: #### V ITAD, PSASC #### [facility] [address] [place] [address] Dr. Charlotte Awan Hemoglobin (Bld) [Mass/Vol] 12.3 g/dL Critically low 14.0-18.0 [facility] Comment on above: Performed By: #### V ITAD, PSASC #### [facility] [address] [place] [address] Dr. Charlotte Awan IG # 0.02 10e3/ul Normal 0.00-0.03 [facility] Comment on above: Performed By: #### V ITAD, PSASC #### [facility] [address] [place] [address] [address] Charlotte Awan IG % 0.2 % Normal 0.0-0.5 [facility] Comment on above: Performed By: #### V ITAD, PSASC #### [facility] [address] [place] [address] [address] Charlotte Awan LYMPH # 3.2 103/ul Normal 1.2-3.8 [facility] Comment on above: Performed By: #### V ITAD, PSASC #### [facility] [facility] [address] [place] [address] Dr. Charlotte Awan Lymphocytes/100 WBC (Bld) 33.3 % Normal 20.5-60.0 [facility] Comment on above: Performed By: #### V ITAD, PSASC #### [facility] [address] [place] [address] Dr. Charlotte Awan MANUAL DIFF REQ NO Normal [facility] Comment on above: Performed By: #### V ITAD, PSASC #### [facility] [address] [place] [address] Dr. Charlotte Awan MCH (RBC) [Entitic mass] 27.6 pg Normal 25.9-34.0 [facility] Comment on above: Performed By: #### V ITAD, PSASC #### [facility] [address] [place] [address] Dr. Charlotte Awan MCHC (RBC) [Mass/Vol] 31.6 g/dL Normal 29.9-35.2 [facility] Comment on above: Performed By: #### V ITAD, PSASC #### [facility] [address] [place] [address] Dr. Charlotte Awan MCV (RBC) [Entitic vol] 87.4 fL Normal 80.0-94.0 [facility] Comment on above: Performed By: #### V ITAD, PSASC #### [facility] [address] [place] [address] Dr. Charlotte Awan MONO # 0.6 103/ul Normal 0.3-0.8 [facility] Comment on above: Performed By: #### V ITAD, PSASC #### [facility] [address] [address] [address] Charlotte Awan Monocytes/100 WBC (Bld) 6.0 % Normal 1.7-12.0 [facility] Comment on above: Performed By: #### V ITAD, PSASC #### [facility] [address] [place] [address] Dr. Charlotte Awan NEUT # 5.0 103/ul Normal 1.4-6.5 [facility] Comment on above: Performed By: #### V ITAD, PSASC #### [facility] [address] [place] [address] Dr. Charlotte Awan Neutrophils/100 WBC (Bld) 51.4 % Normal 43.0-75.0 [facility] Comment on above: Performed By: #### V ITAD, PSASC #### [facility] [address] [place] [address] Dr. Charlotte Awan Platelet mean volume (Bld) [Entitic vol] 11.6 fL Normal 9.5-13.5 [facility] Comment on above: Performed By: #### V ITAD, PSASC #### [facility] [address] [place] [address] Dr. Charlotte Awan PLT 180 103/ul Normal 150-450 [facility] Comment on above: Performed By: #### V ITAD, PSASC #### [facility] [address] [place] [address] Dr. Charlotte Awan RBC 4.45 106/ul Critically low 4.70-6.10 [facility] Comment on above: Performed By: #### V ITAD, PSASC #### [facility] [address] [place] [address] Dr. Charlotte Awan WBC 9.7 103/ul Normal 4.0-11.0 [facility] Comment on above: Performed By: #### V ITAD, PSASC #### [facility] [address] [place] [address] Dr. Charlotte Awan LIPASEon 10-28-2022 Lipase [Catalytic activity/Vol] 75.0 U/L Normal 73.0-393.0 [facility] Comment on above: Performed By: #### Nelida ANDERSON, PSASC #### [facility] [address] [place] [address] Dr. Charlotte Awan LIVER PROFILEon 10-28-2022 Albumin [Mass/Vol] 2.9 g/dL Critically low 3.4-5.0 [facility] Comment on above: Performed By: #### V JUSTIN, PSASC #### [facility] [address] [place] [address] Dr. Charlotte Awan Albumin/Globulin [Mass ratio] 0.7 {ratio} Normal [facility] Comment on above: Performed By: #### V JUSTIN, PSASC #### [facility] [address] [place] [address] Dr. Charlotte Awan ALP [Catalytic activity/Vol] 112 U/L Normal 46-116 [facility] Comment on above: Performed By: #### Nelida ANDERSON, PSASC #### [facility] [address] [place] [address] Dr. Charlotte Awan ALT [Catalytic activity/Vol] 19 U/L Normal 16-63 [facility] Comment on above: Performed By: #### Nelida ANDERSON, PSASC #### [facility] [address] [place] [address] Dr. Charlotte Awan AST [Catalytic activity/Vol] 16 U/L Normal 15-37 [facility] Comment on above: Performed By: #### V JUSTIN, PSASC #### [facility] [address] [place] [address] Dr. Charlotte Awan BILI, CONJUGATED 0.1 mg/dL Normal 0.0-0.2 [facility] Comment on above: Performed By: #### V ITSYLVESTER, PSASC #### [facility] [address] [place] [address] Dr. Charlotte Awan Bilirubin [Mass/Vol] 0.4 mg/dL Normal 0.2-1.0 [facility] Comment on above: Performed By: #### V JUSTIN, PSASC #### [facility] [address] [place] [address] Dr. Charlotte Awan Globulin (S) [Mass/Vol] 4.3 g/dL Normal [facility] Comment on above: Performed By: #### V ITAD, PSASC #### [facility] [address] [place] [address] Dr. Charlotte Awan Protein [Mass/Vol] 7.2 g/dL Normal 6.4-8.2 [facility] Comment on above: Performed By: #### V ITAD, PSASC #### [facility] [address] [place] [address] Dr. Charlotte Awan PROF CHEM 8 (BAS METB)on Anion gap [Moles/Vol] 11.7 mmol/L Normal [facility] Comment on above: Performed By: #### V ITAD, PSASC #### [facility] [address] [place] [address] Dr. Charlotte Awan Calcium [Mass/Vol] 9.7 mg/dL Normal 8.5-10.1 [facility] Comment on above: Performed By: #### V ITAD, PSASC #### [facility] [address] [place] [address] Dr. Charlotte Awan Chloride [Moles/Vol] 107 mmol/L Normal 98-107 [facility] Comment on above: Performed By: #### V ITAD, PSASC #### [facility] [address] [place] [address] Dr. Charlotte Awan CO2 [Moles/Vol] 25.7 mmol/L Normal 21.0-32.0 [facility] Comment on above: Performed By: #### V ITAD, PSASC #### [facility] [address] [place] [address] Dr. Charlotte Awan Creatinine [Mass/Vol] 0.97 mg/dL Normal 0.70-1.30 [facility] Comment on above: Performed By: #### V ITAD, PSASC #### [facility] [address] [place] [address] Dr. Charlotte Awan EGFR-AF ESTONIAN >60 Normal >=60 [facility] Comment on above: Performed By: #### V ITAD, PSASC #### [facility] [address] [place] [address] Dr. Charlotte Awan EGFR-NON AF ESTONIAN >60 Normal >=60 [facility] Comment on above: Performed By: #### V ITAD, PSASC #### [facility] [address] [place] [address] Dr. Charlotte Awan Glucose [Mass/Vol] 105 mg/dL Normal 74-106 [facility] Comment on above: Performed By: #### V ITAD, PSASC #### [facility] [address] [place] [address] Dr. Charlotte Awan Potassium [Moles/Vol] 4.4 mmol/L Normal 3.5-5.1 [facility] Comment on above: Performed By: #### V ITAD, PSASC #### [facility] [address] [address] [address] Charlotte Awan Sodium [Moles/Vol] 140 mmol/L Normal 136-145 [facility] Comment on above: Performed By: #### V ITAD, PSASC #### [facility] [address] [place] [address] Dr. Charlotte Awan Urea nitrogen [Mass/Vol] 15.0 mg/dL Normal 7.0-18.0 [facility] Comment on above: Performed By: #### V ITAD, PSASC #### [facility] [address] [place] [address] Dr. Charlotte Awan Urea nitrogen/Creatinine [Mass ratio] 15.5 mg/mg Normal [facility] Comment on above: Performed By: #### V ITAD, PSASC #### [facility] [address] [place] [address] Dr. Charlotte Awan Blood Pressure Cuff Sizeon 0 10-13-2022 Fall risk assessment a) No falls within the last year [facility] Work Phone: Tobacco use status [facility] a) Yes [facility] Work Phone: Blood Pressure Cuff Size [facility] Work Phone: Blood Pressure Cuff Size Yes [facility] Work Phone: Follow Up (General Surgery)o n 10-13-2022 Follow Up (General Surgery) Diagnoses/Problems Choledocholithiasis (574.50) (K80.50) Orders Hyperlipidemia Continue: Rosuvastatin Calcium 20 MG Oral Tablet (Crestor); TAKE 1 TABLET DAILY Rx By: Bonifacio Stern; Dispense: 90 Days ; #:90 Tablet; Refill: 3;For: Hyperlipidemia; ANDREW = N; Print Rx; Last Updated By: Marciano Edge; 10/13/2022 1:14:07 PM Two-vessel coronary artery disease Continue: Aspirin EC 81 MG Oral Tablet Delayed Release; TAKE 1 TABLET DAILY Rx By: Bonifacio Stern; Dispense: 90 Days ; #:90 Tablet; Refill: 3;For: Two-vessel coronary artery disease; ANDREW = N; Verified Transmission to [facility]72; Msg to Pharmacy: Fill at patient request only; Last Updated By: Marciano Edge; 10/13/2022 1:14:07 PM Unlinked Continue: Cozaar 25 MG Oral Tablet (Losartan Potassium); Take 1 tablet daily Dispense: 0 Days ; #: Sufficient Tablet; Refill: 0; ANDREW = N; Record; Last Updated By: Marciano Edge; 10/13/2022 1:14:07 PM Continue: Esomeprazole Magnesium 40 MG Oral Capsule Delayed Release; TAKE 1 CAPSULE TWICE DAILY Rx By: JEAN CLAUDE; Dispense: 0 Days ; #: Sufficient Capsule; Refill: 0; ANDREW = N; Record; Last Updated By: Marciano Edge; 10/13/2022 1:14:07 PM Continue: HYDROcodone-Acetaminophen 5-325 MG Oral Tablet; TAKE 1 TABLET EVERY 4 TO 6 HOURS NEEDED FOR PAIN Dispense: 0 Days ; #: Sufficient Tablet; Refill: 0; ANDREW = N; Record; Last Updated By: Marciano Edge; 10/13/2022 1:14:07 PM Continue: Iron 325 (65 Fe) MG Oral Tablet; Take 1 tablet daily Dispense: 0 Days ; #: Sufficient Tablet; Refill: 0; ANDREW = N; Record; Last Updated By: Marciano Edge; 10/13/2022 1:14:07 PM Continue: metFORMIN HCl - 500 MG Oral Tablet; TAKE 1 TABLET EVERY 12 HOURS WITH FOOD Dispense: 0 Days ; #: Sufficient Tablet; Refill: 0; ANDREW = N; Record; Last Updated By: Marciano Edge; 10/13/2022 1:14:07 PM Continue: Methocarbamol 750 MG Oral Tablet; TAKE 1 TABLET 3 TIMES DAILY Dispense: 0 Days ; #: Sufficient Tablet; Refill: 0; ANDREW = N; Record; Last Updated By: Marciano Edge; 10/13/2022 1:14:07 PM Continue: Metoprolol Succinate ER 25 MG Oral Tablet Extended Release 24 Hour; TAKE 1 TABLET DAILY Dispense: 30 Days ; #:30 Tablet; Refill: 0; ANDREW = N; Record; Last Updated By: Marciano Edge; 10/13/2022 1:14:07 PM Continue: Paxil 20 MG Oral Tablet (PARoxetine HCl); TAKE 1 TABLET DAILY Dispense: 0 Days ; #: Sufficient Tablet; Refill: 0; ANDREW = N; Record; Last Updated By: Marciano Edge; 10/13/2022 1:14:07 PM Continue: Polyethylene Glycol 3350 17 GM/SCOOP Oral Powder; USE DIRECTED ONCE DAILY Rx By: Jean Claude; Dispense: 30 Days ; #:238; Refill: 0; ANDREW = N; Record; Last Updated By: Marciano Edge; 10/13/2022 1:14:07 PM Continue: Tolterodine Tartrate 2 MG Oral Tablet; TAKE 1 TABLET PRN Dispense: 0 Days ; #: Sufficient Tablet; Refill: 0; ANDREW = N; Record; Last Updated By: Marciano Edge; 10/13/2022 1:14:07 PM Provider Impressions Assessment/ Doing well status ERCP and stent placement for cholangitis Cholelithiasis and evidence of cystic duct obstruction Coronary artery disease Tobacco abuse COPD Diabetes Hypertension Plan/ Optimally, patient should undergo cholecystectomy as he has had problems with choledocholithiasis. Primary arrangements for surgery will be made Note made of the patient's cardiac issues. Will review his cardiac status with Dr. Stern of [facility] in [facility]. Cardiac clearance is obtained we can proceed to cholecystectomy Patient understands that under the best of circumstances his chance of adverse events is significantly higher as compared to someone who has not had this much coronary artery issues. Note made also the active tobacco abuse and his COPD again he understands he is at much higher risk for adverse outcome Gallbladder surgery is in general is reviewed with the patient and his family. Potential bleeding infection CT PE etc. reviewed. The anticipated convalescence is reviewed. Potential need to convert from a laparoscopic to an open procedure reviewed. All questions were answered and consent is obtained Chief Complaint Hospital follow-up History of Present [id number] male recently transferred from [facility] for evaluation of abdominal pain of uncertain etiology. By the time he arrived at [facility] he was becoming septic. He had abnormal liver function tests. He had a HIDA scan demonstrating nonvisualization. There was evidence of cholelithiasis. There is also question of choledocholithiasis. Patient underwent an urgent ERCP per Dr. Weber. Stones removed and pus evacuated from the common bile duct. Stent was placed. Patient was hospitalized for several days after this did did exceedingly well. In retrospect he had ascending cholangitis Patient presents now for gallbladder assessment Patient is at home now. Says he has a little bit of pain in his upper abdomen. He is eating fairly well. Denies any jaundice or dark urine. Denies any fever, chills Past medical history/ Coronary tim (more content not included)... Normal [facility]Con 10-08-2022 Erythrocyte distribution width (RBC) [Ratio] 15.9 % High 11.5 - 14.5 [facility] Comment on above: Performed By: #### C BC #### [address] [address] Hematocrit (Bld) [Volume fraction] 30.9 % Low 41.0 - 52.0 [facility] Comment on above: Performed By: #### C BC #### [address] [address] Hemoglobin (Bld) [Mass/Vol] 9.9 g/dL Low 13.5 - 17.5 [facility] Comment on above: Performed By: #### C BC #### [address] [address] MCHC (RBC) [Mass/Vol] 32.0 g/dL Normal 32.0 - 36.0 [facility] Comment on above: Performed By: #### C BC #### [address] [address] MCV (RBC) [Entitic vol] 88 fL Normal 80 - 100 [facility] Comment on above: Performed By: #### C BC #### [address] [address] NUCLEATED RBC 0.0 /100 WBC Normal 0.0 - 0.0 [facility] Comment on above: Performed By: #### C BC #### [address] [address] Platelets (Bld) [#/Vol] 274 10*3/uL Normal 150 - 450 [facility] Comment on above: Performed By: #### C BC #### [address] [address] RBC 3.51 x10E12/L Low 4.50 - 5.90 [facility] Comment on above: Performed By: #### C BC #### [address] [address] WBC (Bld) [#/Vol] 9.0 10*3/uL Normal 4.4 - 11.3 [facility] Comment on above: Performed By: #### C BC #### [address] [address] COMPREHENSIVE PANELon 2022 Albumin [Mass/Vol] 2.8 g/dL Low 3.4 - 5.0 [facility] Comment on above: Performed By: #### M G #### [address] [address] ALP [Catalytic activity/Vol] 175 U/L High 33 - 136 [facility] Comment on above: Performed By: #### M G #### [address] [place] [address] ALT [Catalytic activity/Vol] 43 U/L Normal 10 - 52 [facility] Comment on above: Result Comment: Radha ents treated with Sulfasalazine may generate falsely decreased results for ALT. Performed By: #### M G #### [address] [place] [address] Anion gap [Moles/Vol] 10 mmol/L Normal 10 - 20 [facility] Comment on above: Performed By: #### M G #### [address] [place] [address] AST [Catalytic activity/Vol] 23 U/L Normal 9 - 39 [facility] Comment on above: Performed By: #### M G #### [address] [place] [address] Bilirubin [Mass/Vol] 0.5 mg/dL Normal 0.0 - 1.2 [facility] Comment on above: Performed By: #### M G #### [address] [place] [address] Calcium [Mass/Vol] 8.7 mg/dL Normal 8.6 - 10.3 [facility] Comment on above: Performed By: #### M G #### [address] [place] [address] Chloride [Moles/Vol] 108 mmol/L High 98 - 107 [facility] Comment on above: Performed By: #### M G #### [address] [place] [address] Creatinine [Mass/Vol] 0.96 mg/dL Normal 0.50 - 1.30 [facility] Comment on above: Performed By: #### M G #### [address] [place] [address] GFR/1.73 sq M.predicted among non-blacks MDRD (S/P/Bld) [Vol rate/Area] 84 mL/min/{1.73_m2} Normal >90 [facility] Comment on above: Result Comment: CALC ULATIONS OF ESTIMATED GFR ARE PERFORMED USING THE 2020 CKD-EPI STUDY REFIT EQUATION WITHOUT THE RACE VARIABLE FOR THE IDMS-TRACEABLE CREATININE METHODS. https://jasn.asnjournals.org/content//ASN.34710 [address] Performed By: #### M G #### [address] [address] Glucose [Mass/Vol] 93 mg/dL Normal 74 - 99 [facility] Comment on above: Performed By: #### M G #### [address] [address] HCO3 (Bld) [Moles/Vol] 27 mmol/L Normal 21 - 32 [facility] Comment on above: Performed By: #### M G #### [address] [address] Potassium [Moles/Vol] 3.7 mmol/L Normal 3.5 - 5.3 [facility] Comment on above: Performed By: #### M G #### [address] [address] Protein [Mass/Vol] 5.5 g/dL Low 6.4 - 8.2 [facility] Comment on above: Performed By: #### M G #### [address] [address] Sodium [Moles/Vol] 141 mmol/L Normal 136 - 145 [facility] Comment on above: Performed By: #### M G #### [address] [address] Urea nitrogen [Mass/Vol] 12 mg/dL Normal 6 - 23 [facility] Comment on above: Performed By: #### M G #### [address] [address] Clinical Intervention - Jonhnie broderick 10-08-2022 Clinical Intervention - Pharmacy Pharmacist's Clinical Intervention: Active and Pending Medications: Piperacillin - Tazobactam 4.5 gram/Iso-osmotic 100 mL Premix IVPB, (ZOSYN) Once Recommended Infusion Time: 30 minute(s), 05-Oct-2022, Completed Reason for pharmacist's clinical intervention: Patient counseling-medications, zosyn inpatient -Rx for Augmentin for homegoing. Provided bedside medication education. Discussed importance of completing doses and possible ADRs. Pharmacist intervention: Patient medication education, EDU Patient medication education: Adequate patient knowledge Time Required: 5 - 10 minutes Electronic Signatures: Man Zavala ([facility]) (Signed 08-Oct-2022 15:27) Authored: Pharmacist's Clinical Intervention Last Updated: 08-Oct-2022 15:27 by Man Zavala ([facility]) Normal [facility] Daily Progress Note-Acute Ca re Surgeryon 10-08-2022 Daily Progress Note-Acute Care Surgery Service: Acute Care Surgery Subjective Data: GOPAL IRVING is a 71 year old Male who is Hospital Day # 4. Additional Information: Denies fever, chills Tolerating diet Still has some right upper quadrant discomfort Objective Data: Objective Information: T PRBPMAPSpO2 [id number]/9697% Date/Time10/08 8:003 8: 8: 8:003 8:00 Range(35.8C - 36.7C ) (55 - 85 ) (16 - 18 ) (112 - 211 )/ (64 - 96 ) (95% - 98% ) Pain reported at 10/07 21:00: 0 = None T PRBPMAPSpO2 [id number]/9697% Date/Time10/08 8: 8:003 8:003 8:003 8:00 Range(35.8C - 36.7C ) (55 - 85 ) (16 - 18 ) (112 - 211 )/ (64 - 96 ) (95% - 98% ) Physical Exam by System: Constitutional: Well developed, awake/alert/oriented x3, no distress, alert and cooperative Eyes: Sclera clear Gastrointestinal: Abdomen soft and nontender Nondistended No Torres sign Medication: Medications: Continuous Medications ------ No continuous medications are active Scheduled Medications ------ 1. Aspirin Enteric Coated: 81 mg Oral Daily 2. Atorvastatin: 20 mg Oral At Bedtime 3. Ferrous Sulfate: 325 mg Oral Daily 4. Heparin SubCutaneous: 5000 unit(s) SubCutaneous Every 8 Hours 5. Insulin Lispro Mild Corrective Scale: unit(s) SubCutaneous 3 Times a Day Before Meals 6. Nicotine 21 mg/ 24 hour TransDermal: 1 patch TransDermal Every 24 Hours 7. Pantoprazole: 40 mg Oral Daily 8. PARoxetine - PEDS: 20 mg Oral Every Night 9. Piperacillin - Tazobactam 3.375 gram/Iso-osmotic 50 mL Premix IVPB: 50 mL IntraVenous Piggyback Every 8 Hours PRN Medications ------ 1. Dextrose 50% in Water Injectable: 25 gram(s) IntraVenous Push Every 15 Minutes 2. Glucagon Injectable: 1 mg IntraMuscular Every 15 Minutes 3. oxyCODONE Immediate Release: 10 mg Oral Every 4 Hours 4. oxyCODONE Immediate Release: 5 mg Oral Every 4 Hours Recent Lab Results: Results: CBC: 10/08/2022 06:28 \ Hgb / \ 9.9 L / WBC Plt 9.0 274 / Hct \ / 30.9 L \ RBC: 3.51 L MCV: 88 CMP: 10/08/2022 06:28 NA+ Cl- BUN / 141 108 H 12 / ------ Glucose - 93 K+ HCO3- Creat \ 3.7 27 0.96 \ \ T Bili / \ 0.5 / AST x ---- x ALT 23 x ---- x 43 / Alk P \ / 175 H \ Calcium : 8.7 Anion Gap : 10 Albumin : 2.8 L T Protein : 5.5 L I have reviewed these laboratory results: Complete Blood Count 08-Oct-2022 06:28:00 ResultValue White Blood Cell Count 9.0 Nucleated Erythrocyte Count 0.0 Red Blood Cell Count 3.51 L HGB 9.9 L HCT 30.9 L MCV 88 MCHC 32.0 PLT 274 RDW-CV 15.9 H Comprehensive Metabolic Panel 08-Oct-2022 06:28:00 ResultValue Glucose, Serum 93 NA 141 K 3.7 CL 108 H Bicarbonate, Serum 27 Anion Gap, Serum 10 BUN 12 CREAT 0.96 GFR Male 84 Calcium, Serum 8.7 ALB 2.8 L ALKP 175 H T Pro 5.5 L T Bili 0.5 Alanine Aminotransferase, Serum 43 Aspartate Transaminase, Serum 23 Magnesium, Serum 08-Oct-2022 06:28:00 ResultValue Magnesium, Serum 1.99 Assessment and Plan: Daily Risk Screen: Does patient have an indwelling urinary cathetern/a consulting service Does patient have a central linen/a consulting service Code Status: Code StatusFull Code Assessment: Assessment/ Cholangitis, responding to therapy Plan/ May discharge to home on oral antibiotics from general surgery point of view Patient should return the office for elective cholecystectomy in 4-6 weeks Electronic Signatures: Franky Mattson) (Signed 08-Oct-2022 08:03) Authored: Service, Subjective Data, Objective Data, Assessment and Plan, Note Completion Last Updated: 08-Oct-2022 08:03 by Franky Mattson) Normal [facility] Discharge [id number] Discharge Profile2 Discharge Orders: Anticipated Discharge Date: Anticipated Discharge [id number] DNAR: Code Status at Discharge: Full Code Additional Orders: Additional Instructions Please follow up with your primary care provider within 7 days for hospital follow up. Please call to make this appointment. Please take your medications as prescribed. Augmentin twice daily for 8 days, take with food. If you have any new or worsening symptoms seek medical attention. Thank you for allowing us to participate in your care! -[facility] Inpatient Medicine Teaching Service. Home Care Orders: Face to Face Certification: Home Care Services Needed: yes Home Care Agency: [facility] Ordered: RN/CHUR[employer] MUSICIAN, PT, OT Face to Face Encounter Completed: yes Date of Encounter: 08-Oct-2022 Medical Necessity for Homecare (based on clinical findings): Pt has cholecystitis that has risk of worsening prior to definitive management with cholecystectomy. He has ongoing RUQ pain that limits his ability to take care of himself and decreased PO intake. Homebound Status: homebound Homebound Due to:: Patient sHas diminished exercise tolerance and can only ambulate limited distances. It is taxing and takes extraordinary effort to leave the house. Face to Face Completed and Home Care Orders Reviewed: I certify that this patient is under my care. I have reviewed the information included in the face to face and certify that the home care services ordered are medically necessary for this patient. Home Care Services: Home Care Skilled Serviceassessment, Rehab (PT/OT/SP eval and treat) Assessment: First Home Care Visitday after discharge Provider FINAL REVIEW of Orders: Final Review: Final Review of Medication Reconciliation and Orders Completedby Physician Reviewing ProviderSsalud Kelly MD at 08-Oct-2022 09:57:46 Appointments: Follow-Up Appointment 01: Physician/Dept/ServiceDr. Mk Garcia Reason for ReferralHospital follow up Call to Schedule in2-3 days Follow-Up Appointment 02: Physician/Dept/ServiceDr. Mattson Reason for ReferralGallbladder surgery Call to Schedule in3 weeks Scheduled Date/[id number] 01:[address] [place] [address] Phone [phone] CommentsPlease arrive 15 early to your appoinment and bring all insurance information Follow-Up Appointment 03: Physician/Dept/ServiceDr. Weber Reason for ReferralBiliary Stent Removal Call to Schedule in3 weeks Phone [phone] Electronic Signatures: Holland Cooper (Resident)) (Signed 08-Oct-2022 09:53) Authored: Discharge Orders, Home Care Orders, Provider FINAL REVIEW of Orders, Appointments, Gold Form - Insulation Board Head Saw Operator Summary Bethany Kelly) (Signed 08-Oct-2022 09:57) Authored: Discharge Orders, Home Care Orders, Provider FINAL REVIEW of Orders Tammi Mcgraw) (Signed 08-Oct-2022 11:15) Authored: Discharge Orders, Appointments Last Updated: 08-Oct-2022 11:15 by Tammi Mcgraw (RN) Normal [facility] GLUCOSE-POCTon 10-08-2022 Glucose [Mass/Vol] 166 mg/dL High 74 - 99 [facility] Comment on above: Performed By: #### C BC #### [address] [address] Glucose [Mass/Vol] 93 mg/dL Normal 74 - 99 [facility] Comment on above: Performed By: #### T RP #### [address] [address] Glucose [Mass/Vol] 92 mg/dL Normal 74 - 99 [facility] Comment on above: Performed By: #### C BC #### [address] [address] Laboratory - Chemistry and C hemistry - challengeon 10-08-2022 Glucose [Mass/Vol] 166 mg/dL above high threshold 74 - 99 [facility] Work Phone: Glucose [Mass/Vol] 93 mg/dL 74 - 99 [facility] Work Phone: Albumin BCP dye [Mass/Vol] 2.8 g/dL below low threshold 3.4 - 5.0 [facility] Work Phone: ALP [Catalytic activity/Vol] 175 U/L above high threshold 33 - 136 [facility] Work Phone: ALT With P-5'-P [Catalytic activity/Vol] 43 U/L 10 - 52 [facility] Work Phone: Comment on above: Patients treated wit h Sulfasalazine may generate falsely decreased results for ALT. Anion gap [Moles/Vol] 10 mmol/L 10 - 20 [facility] Work Phone: AST With P-5'-P [Catalytic activity/Vol] 23 U/L 9 - 39 [facility] Work Phone: Bilirubin [Mass/Vol] 0.5 mg/dL 0.0 - 1.2 [facility] Work Phone: Calcium [Mass/Vol] 8.7 mg/dL 8.6 - 10.3 [facility] Work Phone: Chloride [Moles/Vol] 108 mmol/L above high threshold 98 - 107 [facility] Work Phone: CO2 [Moles/Vol] 27 mmol/L 21 - 32 [facility] Work Phone: Creatinine [Mass/Vol] 0.96 mg/dL See Below [facility] Work Phone: Comment on above: Reference Range: 0.5 0 - 1.30 Glucose [Mass/Vol] 93 mg/dL 74 - 99 [facility] Work Phone: Potassium [Moles/Vol] 3.7 mmol/L 3.5 - 5.3 [facility] Work Phone: Protein [Mass/Vol] 5.5 g/dL below low threshold 6.4 - 8.2 [facility] Work Phone: Sodium [Moles/Vol] 141 mmol/L 136 - 145 [facility] Work Phone: Urea nitrogen [Mass/Vol] 12 mg/dL 6 - 23 [facility] Work Phone: Laboratory - Hematology and Cell countson 10-08-2022 Erythrocyte distribution width (RBC) [Ratio] 15.9 % above high threshold See Below [facility] Work Phone: Comment on above: Reference Range: 11. 5 - 14.5 Hematocrit (Bld) [Volume fraction] 30.9 % below low threshold See Below [facility] Work Phone: Comment on above: Reference Range: 41. 0 - 52.0 Hemoglobin (Bld) [Mass/Vol] 9.9 g/dL below low threshold See Below -[facility] Work Phone: Comment on above: Reference Range: 13. 5 - 17.5 MCHC (RBC) [Mass/Vol] 32.0 g/dL See Below - [facility] Work Phone: Comment on above: Reference Range: 32. 0 - 36.0 MCV (RBC) [Entitic vol] 88 fL 80 - 100 -[facility] Work Phone: Platelets (Bld) [#/Vol] 274 10*3/uL 150 - 450 -[facility] Work Phone: RBC (Bld) [#/Vol] 3.51 {x10E12/L} below low threshold See Below -[facility] Work Phone: Comment on above: Reference Range: 4.5 0 - 5.90 WBC (Bld) [#/Vol] 9.0 10*3/uL 4.4 - 11.3 -[facility] Work Phone: MAGNESIUMon 10-08-2022 Magnesium [Mass/Vol] 1.99 mg/dL Normal 1.60 - 2.40 [facility] Comment on above: Performed By: #### T [facility] #### [facility] [address] [place] [address] Magnesium, Serumon 3 Magnesium [Mass/Vol] 1.99 mg/dL See Below J[facility] Work Phone: Comment on above: Reference Range: 1.6 0 - 2.40 No Panel Informationon 10-08 84 {mL/min/1.73m2} >90 [facility] Work Phone: Comment on above: CALCULATIONS OF BEV MATED GFR ARE PERFORMED USING THE 2020 CKD-EPI STUDY REFIT EQUATION WITHOUT THE RACE VARIABLE FOR THE IDMS-TRACEABLE CREATININE METHODS.https://jasn.asnjournals.org/content//A SN.9910072031 0.0 {/100_WBC} 0.0 - 0.0 [facility] Work Phone: Order Reconciliationon 10-08 Order Reconciliation Page 1 Discharge Reconciliation Document Reconciliation Type: Discharge requested on behalf of Holland Cooper (Resident) done by Holland Cooper ( (Resident)) Discharge - Reconciliation: 08-Oct-2022 07:37 by: Holland Cooper ( (Resident)) Home Medications EnteredHOME MEDICATIONS AT DISCHARGE DateReconciliation Comment/ Additional Information Aspir 81 oral delayed release tablet 1 tab(s) orally once a day 05-Oct-2022 12:05 Aspir 81 oral delayed release tablet 1 tab(s) orally once a day 05-Oct-2022 12:05 Aspir 81 oral delayed release tablet is continued as Aspir 81 oral delayed release tablet esomeprazole 40 mg oral delayed release capsule 1 cap(s) orally 2 times a day 05-Oct-2022 12:05 esomeprazole 40 mg oral delayed release capsule 1 cap(s) orally 2 times a day 05-Oct-2022 12:05 esomeprazole 40 mg oral delayed release capsule is continued as esomeprazole 40 mg oral delayed release capsule ferrous sulfate 325 mg (65 mg elemental iron) oral tablet 1 tab(s) orally once a day 05-Oct-2022 12:08 ferrous sulfate 325 mg (65 mg elemental iron) oral tablet 1 tab(s) orally once a day 05-Oct-2022 12:08 ferrous sulfate 325 mg (65 mg elemental iron) oral tablet is continued as ferrous sulfate 325 mg (65 mg elemental iron) oral tablet losartan 50 mg oral tablet 1 tab(s) orally once a day 05-Oct-2022 12:05 losartan 50 mg oral tablet 1 tab(s) orally once a day 05-Oct-2022 12:05 losartan 50 mg oral tablet is continued as losartan 50 mg oral tablet metFORMIN 500 mg oral tablet, extended release 1 tab(s) orally 2 times a day 05-Oct-2022 12:06 metFORMIN 500 mg oral tablet, extended release 1 tab(s) orally 2 times a day 05-Oct-2022 12:06 metFORMIN 500 mg oral tablet, extended release is continued as metFORMIN 500 mg oral tablet, extended release metoprolol succinate 50 mg oral tablet, extended release 1 tab(s) orally once a day 05-Oct-2022 12:06 metoprolol succinate 50 mg oral tablet, extended release 1 tab(s) orally once a day 05-Oct-2022 12:06 metoprolol succinate 50 mg oral tablet, extended release is continued as metoprolol succinate 50 mg oral tablet, extended release MiraLax oral powder for reconstitution 17 gram(s) orally once a day 05-Oct-2022 12:07 MiraLax oral powder for reconstitution 17 gram(s) orally once a day 05-Oct-2022 12:07 MiraLax oral powder for reconstitution is continued as MiraLax oral powder for reconstitution [place] 5 mg-325 mg oral tablet 1 tab(s) orally every 6 hours, As Needed - for pain 05-Oct-2022 12:05 [place] 5 mg-325 mg oral tablet 1 tab(s) orally every 6 hours, As Needed - for pain 05-Oct-2022 12:05 [place] 5 mg-325 mg oral tablet is continued as [place] 5 mg-325 mg oral tablet PARoxetine 20 mg oral tablet 1 tab(s) orally once a day (at bedtime) 05-Oct-2022 12:06 PARoxetine 20 mg oral tablet 1 tab(s) orally once a day (at bedtime) 05-Oct-2022 12:06 PARoxetine 20 mg oral tablet is continued as PARoxetine 20 mg oral tablet rosuvastatin 40 mg oral tablet 0.5 tab(s) orally once a day (at bedtime) 05-Oct-2022 12:07 rosuvastatin 40 mg oral tablet 0.5 tab(s) orally once a day (at bedtime) 05-Oct-2022 12:07 rosuvastatin 40 mg oral tablet is continued as rosuvastatin 40 mg oral tablet tolterodine 2 mg oral capsule, extended release 1 cap(s) orally Wednesday, Wednesday, and 05-Oct-2022 12:08 tolterodine 2 mg oral capsule, extended release 1 cap(s) orally Wednesday, Wednesday, and 05-Oct-2022 12:08 tolterodine 2 mg oral capsule, extended release is continued as tolterodine 2 mg oral capsule, extended release Current OrdersDateHOME MEDICATIONS AT DISCHARGE DateReconciliation Comment/ Additional Information Aspirin Enteric Coated Enteric Coated Tablet (ECOTRIN)DOSE = 81 mg Oral Daily 05-Oct-2022 14:29 Aspirin Enteric Coated is not required Atorvastatin Tablet (LIPITOR)DOSE = 20 mg Oral At Bedtime 05-Oct-2022 14:29 Atorvastatin is not required Dextrose 50% in Water Injectable DOSE = 25 gram(s) IntraVenous Push Every 15 Minutes, PRN Blood Glucose 70 mg/dL or LESS & HAS IV accessClinician Notes: IF patient HAS a secure IV access & is Unconscious, Conscious, NPO or Unable to Eat or Drink. Re 05-Oct-2022 14:07 Dextrose 50% in Water Injectable is not required Ferrous Sulfate Tablet (FEOSOL)DOSE = 325 mg Oral Daily 05-Oct-2022 14:29 Ferrous Sulfate is not required Glucagon Injectable DOSE = 1 mg IntraMuscular Every 15 Minutes, PRN Blood Glucose 70 mg/dL or LESS & NO IV accessClinician Notes: IF patient DOES NOT have secure IV access & is Unconscious, Conscious, NPO or Unable to Eat or Drink. Repeat until BG r 05-Oct-2022 14:07 Glucagon Injectable is not required Heparin SubCutaneous DOSE = 5,000 unit(s) SubCutaneous Every 8 HoursNotes from Pharmacy: Note Concentration Prior to Administration 05-Oct-2022 14:07 Heparin SubCutaneous is not required Insulin Lispro Mild Corrective Scale Give SubCutaneous 3 Times a Day Before Meals Hypoglycemia Protocol Call LIP (more content not included)... Normal [facility] CBCon 10-07-2022 Erythrocyte distribution width (RBC) [Ratio] 16.0 % High 11.5 - 14.5 [facility] Comment on above: Performed By: #### G AIXA #### [address] [address] Hematocrit (Bld) [Volume fraction] 29.9 % Low 41.0 - 52.0 [facility] Comment on above: Performed By: #### G AIXA #### [address] [address] Hemoglobin (Bld) [Mass/Vol] 9.5 g/dL Low 13.5 - 17.5 [facility] Comment on above: Performed By: #### G AIXA #### [address] [address] MCHC (RBC) [Mass/Vol] 31.8 g/dL Low 32.0 - 36.0 [facility] Comment on above: Performed By: #### G AIXA #### [address] [address] MCV (RBC) [Entitic vol] 88 fL Normal 80 - 100 [facility] Comment on above: Performed By: #### G AIXA #### [address] [address] NUCLEATED RBC 0.0 /100 WBC Normal 0.0 - 0.0 [facility] Comment on above: Performed By: #### G AIXA #### [address] [address] Platelets (Bld) [#/Vol] 231 10*3/uL Normal 150 - 450 [facility] Comment on above: Performed By: #### G AIXA #### [address] [address] RBC 3.38 x10E12/L Low 4.50 - 5.90 [facility] Comment on above: Performed By: #### G AIXA #### [address] [address] WBC (Bld) [#/Vol] 11.6 10*3/uL High 4.4 - 11.3 [facility] Comment on above: Performed By: #### G AIXA #### [address] [address] Daily Progress Note-Acute Ca re Surgeryon 10-07-2022 Daily Progress Note-Acute Care Surgery Service: Acute Care Surgery Subjective Data: GOPAL IRVING is a 71 year old Male who is Hospital Day # 3. Additional Information: Comfortable Tolerating diet Notes mild epigastric and right upper quadrant pain Denies fever, chills Objective Data: Objective Information: T PRBPMAPSpO2 [id number]% Date/Time10/07 4: 4: 4: 4: 0: 4:00 Range(35.8C - 36.7C ) (54 - 64 ) (11 - 22 ) (104 - 165 )/ (52 - 83 ) (77 - 120 ) (95% - 98% ) Pain reported at 10/06 21:00: 0 = None T PRBPMAPSpO2 [id number]/305232% Date/Time10/07 4: 4: 4: 4: 0: 4:00 Range(35.8C - 36.7C ) (54 - 64 ) (11 - 22 ) (104 - 165 )/ (52 - 83 ) (77 - 120 ) (95% - 98% ) Physical Exam by System: Constitutional: Well developed, awake/alert/oriented x3, no distress, alert and cooperative Eyes: Sclera clear Gastrointestinal: Soft and nontender No Torres sign Medication: Medications: Continuous Medications ------ No continuous medications are active Scheduled Medications ------ 1. Aspirin Enteric Coated: 81 mg Oral Daily 2. Atorvastatin: 20 mg Oral At Bedtime 3. Ferrous Sulfate: 325 mg Oral Daily 4. Heparin SubCutaneous: 5000 unit(s) SubCutaneous Every 8 Hours 5. Insulin Lispro Mild Corrective Scale: unit(s) SubCutaneous Every 4 Hours 6. Pantoprazole: 40 mg Oral Daily 7. PARoxetine - PEDS: 20 mg Oral Every Night 8. Piperacillin - Tazobactam 3.375 gram/Iso-osmotic 50 mL Premix IVPB: 50 mL IntraVenous Piggyback Every 8 Hours PRN Medications ------ 1. Dextrose 50% in Water Injectable: 25 gram(s) IntraVenous Push Every 15 Minutes 2. Glucagon Injectable: 1 mg IntraMuscular Every 15 Minutes 3. oxyCODONE Immediate Release: 5 mg Oral Every 4 Hours Assessment and Plan: Comorbidities: ComorbidityOther Code Status: Code StatusFull Code Assessment: Assessment/ Doing very well after ERCP and stent placement for cholangitis Plan/ Advance diet as tolerated May discharge to home on oral antibiotics from surgery viewpoint Recommend cholecystectomy in 4 to 6 weeks after patient is convalesce from the acute event Electronic Signatures: Franky Mattson) (Signed 07-Oct-2022 07:38) Authored: Service, Subjective Data, Objective Data, Assessment and Plan, Note Completion Last Updated: 07-Oct-2022 07:38 by Franky Mattson) Normal [facility] Daily Progress Note-Medicine on 10-07-2022 Daily Progress Note-Medicine Service: Medicine Subjective Data: GOPAL IRVING is a 71 year old Male who is Hospital Day # 3. Seen and examined, laying comfortably, admits to ongoing RUQ pain. Able to tolerate diet and is passing gas. Refuses home PT / SNF placement. Objective Data: Objective Information: T PRBPMAPSpO2 [id number]% Date/Time10/07 8: 8: 8: 8: 0:003 8:00 Range(35.8C - 36.7C ) (54 - 70 ) (11 - 22 ) (104 - 184 )/ (52 - 92 ) (77 - 120 ) (95% - 98% ) Pain reported at 10/07 11:31: 7 = Severe Physical Exam by System: Constitutional: NAD, laying comfortably Eyes: EOMI, clear sclera ENMT: mucous membranes moist, no apparent injury Respiratory/Thorax: Patent airways, CTAB, normal breath sounds with good chest expansion Cardiovascular: Regular rhythm, no murmurs, 2+ equal pulses of the extremities Gastrointestinal: Nondistended, soft, RUQ tenderness to palpation, +BS x4 Musculoskeletal: equal decreased strength b/l Extremities: normal extremities, no clubbing Neurological: Oriented x3, NFDs Psychological: Appropriate mood and behavior Skin: Warm and dry Medication: Medications: Continuous Medications ------ No continuous medications are active Scheduled Medications ------ 1. Aspirin Enteric Coated: 81 mg Oral Daily 2. Atorvastatin: 20 mg Oral At Bedtime 3. Ferrous Sulfate: 325 mg Oral Daily 4. Heparin SubCutaneous: 5000 unit(s) SubCutaneous Every 8 Hours 5. Insulin Lispro Mild Corrective Scale: unit(s) SubCutaneous Every 4 Hours 6. Nicotine 21 mg/ 24 hour TransDermal: 1 patch TransDermal Every 24 Hours 7. Pantoprazole: 40 mg Oral Daily 8. PARoxetine - PEDS: 20 mg Oral Every Night 9. Piperacillin - Tazobactam 3.375 gram/Iso-osmotic 50 mL Premix IVPB: 50 mL IntraVenous Piggyback Every 8 Hours PRN Medications ------ 1. Dextrose 50% in Water Injectable: 25 gram(s) IntraVenous Push Every 15 Minutes 2. Glucagon Injectable: 1 mg IntraMuscular Every 15 Minutes 3. oxyCODONE Immediate Release: 10 mg Oral Every 4 Hours 4. oxyCODONE Immediate Release: 5 mg Oral Every 4 Hours Recent Lab Results: Results: I have reviewed these laboratory results: Complete Blood Count 07-Oct-2022 06:25:00 ResultValue White Blood Cell Count 11.6 H Nucleated Erythrocyte Count 0.0 Red Blood Cell Count 3.38 L HGB 9.5 L HCT 29.9 L MCV 88 MCHC 31.8 L PLT 231 RDW-CV 16.0 H Renal Function Panel 07-Oct-2022 06:24:00 ResultValue Glucose, Serum 96 NA 143 K 3.4 L CL 110 H Bicarbonate, Serum 25 Anion Gap, Serum 11 BUN 17 CREAT 1.03 GFR Male 77 Calcium, Serum 8.6 Phosphorus, Serum 2.0 L ALB 2.7 L Magnesium, Serum 07-Oct-2022 06:24:00 ResultValue Magnesium, Serum 1.96 Radiology Results: Results: Conclusion: Sinus rhythm with premature atrial complexes Anteroseptal infarct , age undetermined Abnormal ECG No previous ECGs available Confirmed by Franky Blackman ([id number]) on 10/06/2022 9:37:04 PM Electrocardiogram 12 Lead [Oct 06 2022 9:37PM] Assessment and Plan: Comorbidities: Comorbidityanemia Anemiairon deficiency anemia, anemia related to TALIA and severe acute illness Code Status: Code StatusFull Code Assessment: #Choledocholithiasis s/p ERCP with plastic biliary stent placement 10/05 -Improving symptomatically, tolerating low fat diet -Continue Zosyn, likely to complete 7-10 day abx course pending ongoing improvement -PT/OT, bowel regimen, pain control, advance diet as tolerated -Follow up with surgery for cholecystectomy in 3-4 weeks -Follow up with GI for stent removal pending cholecystectomy timing #Pancreatic cyst c/f IPMN -CA-19-9 mildly elevated -Follow up with GI outpatient #NIDDM2 -holding home metformin -mild iss #HTN -Hold home losartan given hypotension, restart pending hypertension #HLD -continue home statin DVT Ppx: Heparin Diet: Diabetic Code: Full Dispo: IV Abx for choledocholithiasis, plan to DC tomorrow on oral abx. To staff with attending physician, Holland Cooper DO, PGY3 Nutrition Diagnosis: Nutrition Diagnosis Agree with dietitians assessment and diagnoses as stated. A new diagnosis of Severe malnutrition related to chronic disease or condition as evidence by persistent abd pain resulting in inconsistent oral intakes >1 month and severe fat and muscle mass wasting. Pt's weight loss is >1 yr ago of reported unknown origin.. Attestation: Note Completion: I am a: Resident/Fellow Attending AttestationI saw and evaluated the patient. I personally obtained the carrera and critical portions of the history and physical exam or was physically present for carrera and critical portions performed by the resident/fellow. I reviewed the resident/fellows documentation and discussed the patient with the resident/fe (more content not included)... Normal [facility] Electrocardiogram 12 Leadon 10-07-2022 Electrocardiogram 12 Lead Ventricular Rate 86 Atrial Rate 86 P-R Interval 148 QRS Duration 102 Q-T Interval 386 QTC Calculation(Bazett) 461 P [place] 70 R [place] -10 T [place] -32 QRS Count 14 Q Onset 222 P Onset 148 P Offset 199 T Offset 415 QTC Fredericia 435 Diagnosis Class Abnormal Diagnosis Sinus rhythm with occasional premature ventricular complexes and premature atrial complexes Possible Anterior infarct (cited on or before 05-OCT-2022) Abnormal ECG When compared with ECG of 05-OCT-2022 11:56, premature ventricular complexes are now present ST now depressed in Anterior leads Nonspecific T wave abnormality now evident in Anterior leads Confirmed by Azael Owens ([id number]) on 10/12/2022 10:19:41 AM Normal [facility] GLUCOSE-POCTon 10-07-2022 Glucose [Mass/Vol] 156 mg/dL High 74 - 99 [facility] Comment on above: Performed By: #### T RPHS #### [address] [address] Glucose [Mass/Vol] 165 mg/dL High 74 - 99 [facility] Comment on above: Performed By: #### C BC #### [address] [address] Glucose [Mass/Vol] 107 mg/dL High 74 - 99 [facility] Comment on above: Performed By: #### G AIXA ####[address] [address] Glucose [Mass/Vol] 152 mg/dL High 74 - 99 [facility] Comment on above: Performed By: #### T RPHS #### [address] [address] Glucose [Mass/Vol] 95 mg/dL Normal 74 - 99 [facility] Comment on above: Performed By: #### G AIXA ####[address] [address] Glucose [Mass/Vol] 170 mg/dL High 74 - 99 [facility] Comment on above: Performed By: #### T RPHS #### [address] [address] Laboratory - Chemistry and C hemistry - challengeon 10-07-2022 Glucose [Mass/Vol] 92 mg/dL 74 - 99 [facility] Work Phone: Glucose [Mass/Vol] 156 mg/dL above high threshold 74 - 99 [facility] Work Phone: Glucose [Mass/Vol] 165 mg/dL above high threshold 74 - 99 [facility] Work Phone: Glucose [Mass/Vol] 107 mg/dL above high threshold 74 - 99 [facility] Work Phone: Glucose [Mass/Vol] 152 mg/dL above high threshold 74 - 99 [facility] Work Phone: Glucose [Mass/Vol] 95 mg/dL 74 - 99 [facility] Work Phone: Laboratory - Hematology and Cell countson 10-07-2022 Erythrocyte distribution width (RBC) [Ratio] 16.0 % above high threshold See Below [facility] Work Phone: Comment on above: Reference Range: 11. 5 - 14.5 Hematocrit (Bld) [Volume fraction] 29.9 % below low threshold See Below [facility] Work Phone: Comment on above: Reference Range: 41. 0 - 52.0 Hemoglobin (Bld) [Mass/Vol] 9.5 g/dL below low threshold See Below [facility] Work Phone: Comment on above: Reference Range: 13. 5 - 17.5 MCHC (RBC) [Mass/Vol] 31.8 g/dL below low threshold See Below [facility] Work Phone: Comment on above: Reference Range: 32. 0 - 36.0 MCV (RBC) [Entitic vol] 88 fL 80 - 100 [facility] Work Phone: Platelets (Bld) [#/Vol] 231 10*3/uL 150 - 450 [facility] Work Phone: RBC (Bld) [#/Vol] 3.38 {x10E12/L} below low threshold See Below [facility] Work Phone: Comment on above: Reference Range: 4.5 0 - 5.90 WBC (Bld) [#/Vol] 11.6 10*3/uL above high threshold 4.4 - 11.3 [facility] Work Phone: MAGNESIUMon 10-07-2022 Magnesium [Mass/Vol] 1.96 mg/dL Normal 1.60 - 2.40 [facility] Comment on above: Performed By: #### M G ####[facility] [place] [address] Magnesium, Serumon 3 Magnesium [Mass/Vol] 1.96 mg/dL See Below [facility] Work Phone: Comment on above: Reference Range: 1.6 0 - 2.40 No Panel Informationon 10-07 [email or web address] ?RetrieveTestByDateTime?Pa [id number]&Date=&Time=18%3a29%3a45% 3a00&TestType=ECG&Site=12& OutputType=PDF&Ext=PDF [facility] Work Phone: Sinus rhythm with occasional premature ventricular complexes and premature atrial complexes [facility] Work Phone: Abnormal [facility] Work Phone: [phone] [facility] Work Phone: [phone] [facility] Work Phone: [phone] [facility] Work Phone: [phone] [facility] Work Phone: [phone] [facility] Work Phone: [phone] [facility] Work Phone: -[phone] [facility] Work Phone: -[phone] [facility] Work Phone: 70 1 [facility] Work Phone: [phone] [facility] Work Phone: [phone] [facility] Work Phone: [phone] [facility] Work Phone: [phone] [facility] Work Phone: 0.0 {/100_WBC} 0.0 - 0.0 [facility] Work Phone: RENAL FUNCTION PANELon 10-07 Albumin [Mass/Vol] 2.7 g/dL Low 3.4 - 5.0 [facility] [place] Comment on above: Performed By: #### R ENAL #### [address] [address] Anion gap [Moles/Vol] 11 mmol/L Normal 10 - 20 [facility] Comment on above: Performed By: #### R ENAL #### [address] [address] Calcium [Mass/Vol] 8.6 mg/dL Normal 8.6 - 10.3 [facility] Comment on above: Performed By: #### R ENAL #### [address] [address] Chloride [Moles/Vol] 110 mmol/L High 98 - 107 [facility] Comment on above: Performed By: #### R ENAL #### [address] [address] Creatinine [Mass/Vol] 1.03 mg/dL Normal 0.50 - 1.30 [facility] Comment on above: Performed By: #### R ENAL #### [address] [address] GFR/1.73 sq M.predicted among non-blacks MDRD (S/P/Bld) [Vol rate/Area] 77 mL/min/{1.73_m2} Normal >90 [facility] Comment on above: Result Comment: CALC ULATIONS OF ESTIMATED GFR ARE PERFORMED USING THE 2020 CKD-EPI STUDY REFIT EQUATION WITHOUT THE RACE VARIABLE FOR THE IDMS-TRACEABLE CREATININE METHODS. https://jasn.asnjournals.org/content//ASN.54405 60830 Performed By: #### R ENAL #### [address] [address] Glucose [Mass/Vol] 96 mg/dL Normal 74 - 99 [facility] [place] Comment on above: Performed By: #### R ENAL #### [address] [address] HCO3 (Bld) [Moles/Vol] 25 mmol/L Normal 21 - 32 [facility] [place] Comment on above: Performed By: #### R ENAL #### [address] [address] Phosphate [Mass/Vol] 2.0 mg/dL Low 2.5 - 4.9 [facility] Comment on above: Result Comment: The performance characteristics of phosphorus testing in heparinized plasma have been validated by the individual laboratory site where testing is performed. Testing on heparinized plasma is not approved by the FDA; however, such approval is not necessary. Performed By: #### R ENAL #### [address] [address] Potassium [Moles/Vol] 3.4 mmol/L Low 3.5 - 5.3 [facility] Comment on above: Performed By: #### R ENAL #### [address] [address] Sodium [Moles/Vol] 143 mmol/L Normal 136 - 145 [facility] [place] Comment on above: Performed By: #### R ENAL #### [address] [address] Urea nitrogen [Mass/Vol] 17 mg/dL Normal 6 - 23 [facility] Comment on above: Performed By: #### R ENAL #### [address] [place] [address] Renal Function Panelon 10-07 Albumin BCP dye [Mass/Vol] 2.7 g/dL below low threshold 3.4 - 5.0 [facility] Work Phone: Anion gap [Moles/Vol] 11 mmol/L 10 - 20 [facility] Work Phone: Calcium [Mass/Vol] 8.6 mg/dL 8.6 - 10.3 [facility] Work Phone: Chloride [Moles/Vol] 110 mmol/L above high threshold 98 - 107 [facility] Work Phone: CO2 [Moles/Vol] 25 mmol/L 21 - 32 [facility] Work Phone: Creatinine [Mass/Vol] 1.03 mg/dL See Below [facility] Work Phone: Comment on above: Reference Range: 0.5 0 - 1.30 Glucose [Mass/Vol] 96 mg/dL 74 - 99 [facility] Work Phone: Phosphate [Mass/Vol] 2.0 mg/dL below low threshold 2.5 - 4.9 [facility] Work Phone: Comment on above: The performance lena acteristics of phosphorus testing in heparinized plasma have been validated by the individual laboratory site where testing is performed. Testing on heparinized plasma is not approved by the FDA; however, such approval is not necessary. Potassium [Moles/Vol] 3.4 mmol/L below low threshold 3.5 - 5.3 [facility] Work Phone: Sodium [Moles/Vol] 143 mmol/L 136 - 145 [facility] Work Phone: Urea nitrogen [Mass/Vol] 17 mg/dL 6 - 23 [facility] Work Phone: Renal Function Panel 77 {mL/min/1.73m2} >90 [facility] Work Phone: Comment on above: CALCULATIONS OF BEV MATED GFR ARE PERFORMED USING THE 2020 CKD-EPI STUDY REFIT EQUATION WITHOUT THE RACE VARIABLE FOR THE IDMS-TRACEABLE CREATININE METHODS.https://jasn.asnjournals.org/content/early/A SN.7279575568 UA MICROSCOPICon 10-07-2022 RBC 0-5 Normal 0-5 [facility] Comment on above: Performed By: #### C BC #### [address] [address] WBC 0-5 Normal 0-5 [facility] Comment on above: Performed By: #### C BC #### [address] [address] URINALYSIS WITH CULTURE IF I NDICATEDon 10-07-2022 Appearance (U) CLEAR Normal CLEAR [facility] Comment on above: Performed By: #### M G #### [address] [address] Bilirubin Ql (U) Negative Normal NEGATIVE [facility] Comment on above: Performed By: #### M G #### [address] [address] Color (U) YELLOW Normal STRAW,YELL OW [facility] Comment on above: Performed By: #### M G #### [address] [address] Glucose Ql (U) Negative Normal NEGATIVE [facility] Comment on above: Performed By: #### M G #### [address] [address] Hemoglobin Ql (U) SMALL(1+) Abnormal NEGATIVE [facility] Comment on above: Performed By: #### M G #### [address] [address] Ketones Ql (U) Negative Normal NEGATIVE [facility] Comment on above: Performed By: #### M G #### [address] [address] Leukocyte esterase Test strip Ql (U) Negative Normal NEGATIVE [facility] Comment on above: Performed By: #### M G #### [address] [address] Nitrite Ql (U) Negative Normal NEGATIVE [facility] Comment on above: Performed By: #### M G #### [address] [address] pH (U) 6.0 [pH] Normal 5.0 - 8.0 [facility] Comment on above: Performed By: #### M G #### [address] [address] Protein Ql (U) 30(1+) Abnormal NEGATIVE [facility] Comment on above: Performed By: #### M G #### [address] [address] Specific gravity (U) [Rel density] 1.014 Normal 1.005 - 1.035 [facility] Comment on above: Performed By: #### M G #### [address] [address] Urobilinogen (U) [Mass/Vol] 4.0 mg/dL High 0.0 - 1.9 [facility] Comment on above: Result Comment: SOME PIGMENTS AND MEDICATIONS MAY CAUSE A FALSE POSITIVE UROBILINOGEN Performed By: #### M G #### [address] [address] Color (U) YELLOW See Below [facility] Work Phone: Comment on above: Reference Range: STR AW,YELLOW Glucose Ql (U) Negative NEGATIVE [facility] Work Phone: Ketones Ql (U) Negative NEGATIVE [facility] Work Phone: Leukocyte esterase Test strip Ql (U) Negative NEGATIVE [facility] Work Phone: pH (U) 6.0 [pH] 5.0 - 8.0 [facility] Work Phone: Protein (U) [Mass/Vol] 30(1+) Abnormal NEGATIVE [facility] Work Phone: RBC (U) [#/Vol] SMALL(1+) Abnormal NEGATIVE [facility] Work Phone: Specific gravity (U) [Rel density] 1.014 1 See Below [facility] Work Phone: Comment on above: Reference Range: 1.0 05 - 1.035 URINALYSIS WITH CULTURE IF INDICATED Negative NEGATIVE [facility] Work Phone: URINALYSIS WITH CULTURE IF INDICATED 4.0 mg/dL above high threshold 0.0 - 1.9 [facility] Work Phone: Comment on above: SOME PIGMENTS AND ME DICATIONS MAY CAUSE AFALSE POSITIVE UROBILINOGEN URINALYSIS WITH CULTURE IF INDICATED CLEAR CLEAR [facility] Work Phone: Urinalysis, Microscopicon Urinalysis, Microscopic 0-5 0-5 [facility] Work Phone: CBCon 10-06-2022 Erythrocyte distribution width (RBC) [Ratio] 15.7 % High 11.5 - 14.5 [facility] Comment on above: Performed By: #### C BC #### [address] [address] Hematocrit (Bld) [Volume fraction] 33.4 % Low 41.0 - 52.0 [facility] Comment on above: Performed By: #### C BC #### [address] [address] Hemoglobin (Bld) [Mass/Vol] 10.4 g/dL Low 13.5 - 17.5 [facility] Comment on above: Performed By: #### C BC #### [address] [address] MCHC (RBC) [Mass/Vol] 31.1 g/dL Low 32.0 - 36.0 [facility] Comment on above: Performed By: #### C BC #### [address] [address] MCV (RBC) [Entitic vol] 90 fL Normal 80 - 100 [facility] Comment on above: Performed By: #### C BC #### [address] [address] NUCLEATED RBC 0.0 /100 WBC Normal 0.0 - 0.0 [facility] Comment on above: Performed By: #### C BC #### [address] [address] Platelets (Bld) [#/Vol] 209 10*3/uL Normal 150 - 450 [facility] Comment on above: Performed By: #### C BC #### [address] [address] RBC 3.73 x10E12/L Low 4.50 - 5.90 [facility] Comment on above: Performed By: #### C BC #### [address] [address] WBC (Bld) [#/Vol] 15.5 10*3/uL High 4.4 - 11.3 [facility] Comment on above: Performed By: #### C BC #### [address] [address] COMPREHENSIVE PANELon 2022 Albumin [Mass/Vol] 2.8 g/dL Low 3.4 - 5.0 [facility] [place] Comment on above: Performed By: #### T RPHS #### [address] [address] ALP [Catalytic activity/Vol] 246 U/L High 33 - 136 [facility] Comment on above: Performed By: #### T RPHS #### [address] [address] ALT [Catalytic activity/Vol] 76 U/L High 10 - 52 [facility] Comment on above: Result Comment: Radha ents treated with Sulfasalazine may generate falsely decreased results for ALT. Performed By: #### T RPHS #### [address] [address] Anion gap [Moles/Vol] 10 mmol/L Normal 10 - 20 [facility] Comment on above: Performed By: #### T RPHS #### [address] [address] AST [Catalytic activity/Vol] 60 U/L High 9 - 39 [facility] Comment on above: Performed By: #### T RPHS #### [address] [address] Bilirubin [Mass/Vol] 0.9 mg/dL Normal 0.0 - 1.2 [facility] Comment on above: Performed By: #### T RPHS #### [address] [address] Calcium [Mass/Vol] 9.1 mg/dL Normal 8.6 - 10.3 [facility] [place] Comment on above: Performed By: #### T RPHS #### [address] [address] Chloride [Moles/Vol] 110 mmol/L High 98 - 107 [facility] Comment on above: Performed By: #### T RPHS #### [address] [address] Creatinine [Mass/Vol] 1.06 mg/dL Normal 0.50 - 1.30 [facility] Comment on above: Performed By: #### T RPHS #### [address] [address] GFR/1.73 sq M.predicted among non-blacks MDRD (S/P/Bld) [Vol rate/Area] 75 mL/min/{1.73_m2} Normal >90 [facility] Comment on above: Result Comment: CALC ULATIONS OF ESTIMATED GFR ARE PERFORMED USING THE 2020 CKD-EPI STUDY REFIT EQUATION WITHOUT THE RACE VARIABLE FOR THE IDMS-TRACEABLE CREATININE METHODS. https://jasn.asnjournals.org/content//ASN.43666 43659 Performed By: #### T RPHS #### [address] [address] Glucose [Mass/Vol] 113 mg/dL High 74 - 99 [facility] [place] Comment on above: Performed By: #### T RPHS #### [address] [address] HCO3 (Bld) [Moles/Vol] 27 mmol/L Normal 21 - 32 [facility] [place] Comment on above: Performed By: #### T RPHS #### [address] [address] Potassium [Moles/Vol] 4.3 mmol/L Normal 3.5 - 5.3 [facility] Comment on above: Performed By: #### T RPHS #### [address] [address] Protein [Mass/Vol] 5.6 g/dL Low 6.4 - 8.2 [facility] [place] Comment on above: Performed By: #### T RPHS #### [address] [address] Sodium [Moles/Vol] 143 mmol/L Normal 136 - 145 [facility] [place] Comment on above: Performed By: #### T RPHS #### [address] [address] Urea nitrogen [Mass/Vol] 17 mg/dL Normal 6 - 23 [facility] Comment on above: Performed By: #### T RPHS #### [address] [address] Clinical Event Note-Transfer of careon 10-06-2022 Clinical Event Note-Transfer of care Clinical Event: Clinical Event Note: TopicTransfer of care Details 71-year-old male with past medical history significant for DM2, HTN, HLD, AAA and iliac aneurysm initially presented with right upper quadrant pain. CT at outside hospital prior to admission noted gallbladder wall thickening with pericholecystic fluid without biliary dilation. It was also positive for stones in the gallbladder neck. Other history notable for approximately 100 pound weight loss since his AAA surgery 1 year prior, and he was scheduled for a biopsy of his pancreas with Dr. Weber. Vitals on admission significant for hypotension with systolic in the 80s prompting ICU admission, but the patient was fluid responsive. Other notable labs were leukocytosis of 23.4, hemoglobin 13.5, liver enzymes with alk phos 337, ALT 65, AST 116, T. bili 2.1, lipase 5, lactate 2.5, troponin 33. CT of the abdomen pelvis obtained, notable for marked gallbladder wall thickening with fat stranding, pancreatic findings concerning for IPMN. General surgery consulted, advising initial endoscopic approach with GI/IR. Plan for cholecystectomy in the upcoming 3 to 4 weeks. GI took the patient for ERCP with plastic stent placement, sphincterotomy notable for marked purulent discharge, stone retrieved. PMH: AAA status post endovascular repair, known left iliac artery aneurysm, smoking, DM2, HTN, HLD PSH: AAA repair 07/2021 Family Hx: Reviewed, noncontributory Allergies: NKDA Social: 1 PPD smoker, no alcohol, recreational drug use Today the patient still complains of right upper quadrant pain but states it is markedly improved from prior. He is eating, drinking, urinating, and passing gas. He is tolerating a low-fat diet. He denies moving around much, and is agreeable to working with physical therapy. He states he is opposed to alf facility or acute rehab placement and has had home PT in the past that he did not like. Constitutional: Frail no distress, alert and cooperative. Eyes: EOMI, clear sclera Head/Neck: Normocephalic, atraumatic without lesions Respiratory/Thorax: Airways CTA bilaterally, no accessory muscle use Cardiovascular: Regular rhythm, no murmurs, 2+ equal pulses of the extremities Gastrointestinal: Nondistended, soft, +BS in all four quadrants, mild RUQ pain with palpation Musculoskeletal: Normal and Equal strength Extremities: No edema Neurological: alert and oriented x3, intact senses, motor Psychological: Appropriate mood and behavior Skin: Warm and dry, No Rashes A/P #Choledocholithiasis s/p ERCP with plastic biliary stent placement 10/05 -Improving symptomatically, tolerating low fat diet -Continue Zosyn, likely to complete 7-10 day abx course pending ongoing improvement -PT/OT, bowel regimen, pain control, advance diet as tolerated -Follow up with surgery for cholecystectomy in 3-4 weeks -Follow up with GI for stent removal pending cholecystectomy timing #Pancreatic cyst c/f IPMN -CA-19-9 mildly elevated -Follow up with GI outpatient #NIDDM2 -holding home metformin -mild iss #HTN -Hold home losartan given hypotension, restart pending hypertension #HLD -continue home statin DVT Ppx: Heparin Diet: Low Fat Code: Full Dispo: IV Abx, supportive care. Plan to dc home on PO abx with surgery and GI follow up. To staff with attending physician, Holland Cooper DO, PGY3 Electronic Signatures: Holland Cooper (Resident)) (Signed 07-Oct-2022 12:37) Authored: Clinical Event Note Bethany Kelly) (Signed 07-Oct-2022 13:59) Co-Signer: Clinical Event Note Last Updated: 07-Oct-2022 13:59 by Bethany Kelly) [facility] Consult-Interventional Radio logy/Radiologyon 10-06-2022 Consult-Interventional Radiology/Radiology Service: Service: Interventional Radiology/Radiology History of Present Illness: HPI: GOPAL IRVING is a 71 year old Male with past medical history of pancreatic mass, initially presented o [facility] for RUQ abdominal pain ongoing for several weeks. Recent CT abdomen in [facility] concerning for new pancreatic mass. Also complaining of recent 100lb weight loss. Upon presenting hypotensive, febrile, and leukocytosis concerning for severe sepsis. Initial CT imaging demonstrating acute cholecystitis with distended gallbladder, possible cystic duct stone upon review. Initially surgery evaluated the patient, and was not a surgical candidate at the time. IR was consulted for possible cholecystostomy tube placement. Prior to examination, patient was taken to endoscopy for ERCP and EUS, which demonstrated pancreatic cyst at head of the pancreas without pancreatic duct dilation. Dilated CBD with stone was found, and biliary sphincterotomy with stone removal was performed, with extravasation of pus. Plastic stent was then placed. Patient's blood pressure was normotensive throughout procedure, and post-procedure remained HDS. PMHx: pancreatic mass, AAA s/p endovascular repair, left iliac artery aneurysm, HTN, current smoker, NIDDM 2, and HLD SurgHx: endovascular AAA repair 07/2021 SocHx: current tobacco use, denies alcohol use, denies recreational drug use FamHx: reviewed Allergies: NKDA Review of Systems (bold = positive): Constitutional: Fever, Chills Eyes: Blurry Vision, Vision Loss/ Change ENMT: Nasal Discharge, Nasal Congestion Respiratory: Dry Cough, Productive Cough, Wheezing, Shortness of Breath Cardiac: Chest Pain, Syncope, Palpitations Gastrointestinal: Nausea, Vomiting, Diarrhea, Constipation, Abdominal Pain Genitourinary: Discharge, Dysuria, Flank Pain Musculoskeletal: Pain, Swelling, Weakness Neurological: Dizziness, Confusion, Headache, Syncope Skin: Pain, Rash, Ulcer Endocrine: Sweat, Polyuria Hematologic/Lymph: Night Sweats, Petechiae Allergic/Immunologic: Anaphylaxis Review Family/Social History and ROS: Social History: Smoking Status: moderate user (uses 11-30 cig/day, OR 0.5-1.5 ppd, OR 2-3 cans/pouches loose leaf tobacco per week, OR 0.5-1.5 vape pods per day) (1) Alcohol Use: denies(1) Drug Use: denies (1) Allergies: No Known Allergies: Objective: Objective Information: T PRBPMAPSpO2 [id number]% Date/Time10/06 12: 13: 13: 13: 13: 13:00 Range(36C - 36.9C ) (54 - 80 ) (10 - 22 ) (62 - 189 )/ (48 - 91 ) (79 - 130 ) (95% - 99% ) Highest temp of 36.9 C was recorded at 10/05 10:01 Physical Exam Narrative: Physical Exam: Constitutional: Well developed, awake/alert/oriented x4, no distress, alert and cooperative Skin: Warm and dry, no lesions, no rashes Eyes: Anicteric, clear sclera ENMT: mucous membranes moist, no apparent injury, no lesions seen Head/Neck: Atraumatic Respiratory: Lungs clear to auscultation bilaterally with no wheezes, rhonci or crackles CV: Regular rate and rhythm, no murmurs or gallops auscultated GI: Minimal tenderness to palpation of abdomen MSK: no joint swelling Extremities: normal extremities, no cyanosis edema, contusions or wounds, no clubbing Psych: Appropriate mood and behavior Medications: Medications: Continuous Medications ------ No continuous medications are active Scheduled Medications ------ 1. Aspirin Enteric Coated: 81 mg Oral Daily 2. Atorvastatin: 20 mg Oral At Bedtime 3. Ferrous Sulfate: 325 mg Oral Daily 4. Heparin SubCutaneous: 5000 unit(s) SubCutaneous Every 8 Hours 5. Insulin Lispro Mild Corrective Scale: unit(s) SubCutaneous Every 4 Hours 6. Lactated Ringers IV Bolus: 1000 mL IntraVenous Piggyback Once 7. Pantoprazole: 40 mg Oral Daily 8. PARoxetine - PEDS: 20 mg Oral Every Night 9. Piperacillin - Tazobactam 3.375 gram/Iso-osmotic 50 mL Premix IVPB: 50 mL IntraVenous Piggyback Every 8 Hours PRN Medications ------ 1. Dextrose 50% in Water Injectable: 25 gram(s) IntraVenous Push Every 15 Minutes 2. Glucagon Injectable: 1 mg IntraMuscular Every 15 Minutes 3. oxyCODONE Immediate Release: 5 mg Oral Every 4 Hours Radiology Results: Results: Impression: Angio Consult for Body Angiography [Oct 05 2022 1:47PM] Impression: No acute finding in the chest with no evidence of pulmonary embolism. Acute cholecystitis. Patent aorto bi iliac stent. No endoleak. Excluded sac of infrarenal abdominal aortic aneurysm measures up to 5.2 x 4.4 cm axial plane. Excluded sacs of the right and left common iliac arteries measure up to 2.7 and 2.5 cm, respectively. Trace pelvic ascites. Other chronic f (more content not included)... Normal [facility] Daily Progress Note - Critic al Care-MICUon 10-06-2022 Daily Progress Note - Critical Care-MICU Service: Critical Care Service: ServiceMICU Subjective Data: ID Statement: GOPAL IRVING is a 71 year old Male who is Hospital Day # 2 and ICU Day #2. Patient seen and examined bedside, patient resting comfortably in bed. No acute events or program. Patient remained in HDS condition overnight, no reported fevers or episodes of tachycardia or hypotension. Underwent ERCP with GI yesterday, abdominal pain improved to 4/10 occurring intermittently. Patient able to tolerate oral liquids. Diet advanced to low fat diet by GI. No plans for rachna at this time, plan outpatient rachna in 3-4 weeks. He has not required any vasopressors, central or arterial line placement, or intubation during this admission. He is medically stable for downgrade from ICU level of care to hospital medicine team. Objective Data: Objective Information T PRBPMAPSpO2 [id number]% Date/Time10/06 8: 13: 13: 13: 13: 13:00 Range(36C - 36.9C ) (54 - 80 ) (10 - 22 ) (62 - 189 )/ (48 - 91 ) (79 - 130 ) (95% - 99% ) Highest temp of 36.9 C was recorded at 10/05 10:01 Pain reported at 10/06 9:30: 2 = Mild ---- Intake and Output ----- [facility] 06, 2022 6:00 [id number] Oct 05, 2022 10:00 [id number] The Intake and Output Totals for the last 24 hours are: IntakeOutputNet [id number] Date: Weight/Scale Type: 05-Oct-2022 16:5158 kg / bed 05-Oct-2022 15:3758 kg 05-Oct-2022 10:0158 kg Physical Exam by System: Neurological: alert and oriented x3, intact senses, motor, response, normal strength Cardiovascular: Regular, rate and rhythm, no murmurs, 2+ equal pulses of the extremities, normal S 1and S 2 Respiratory/Thorax: Patent airways, CTAB, normal breath sounds with good chest expansion, thorax symmetric Gastrointestinal: Soft, non-distended, some tenderness to palpation in lateral RUQ. Hypoactive bowel sounds Skin: Warm and dry Constitutional: Well developed, awake/alert/oriented x3, no distress, alert and cooperative Eyes: PERRL, EOMI, clear sclera Extremities: normal extremities, no cyanosis edema, contusions or wounds, no clubbing Psychological: Appropriate mood and behavior Allergies: Allergies: No Known Allergies: Medications: Medications: Continuous Medications ------ No continuous medications are active Scheduled Medications ------ 1. Aspirin Enteric Coated: 81 mg Oral Daily 2. Atorvastatin: 20 mg Oral At Bedtime 3. Ferrous Sulfate: 325 mg Oral Daily 4. Heparin SubCutaneous: 5000 unit(s) SubCutaneous Every 8 Hours 5. Insulin Lispro Mild Corrective Scale: unit(s) SubCutaneous Every 4 Hours 6. Lactated Ringers IV Bolus: 1000 mL IntraVenous Piggyback Once 7. Pantoprazole Injectable: 40 mg IntraVenous Push Every 24 Hours 8. PARoxetine - PEDS: 20 mg Oral Every Night 9. Piperacillin - Tazobactam 3.375 gram/Iso-osmotic 50 mL Premix IVPB: 50 mL IntraVenous Piggyback Every 8 Hours PRN Medications ------ 1. Dextrose 50% in Water Injectable: 25 gram(s) IntraVenous Push Every 15 Minutes 2. Glucagon Injectable: 1 mg IntraMuscular Every 15 Minutes 3. HYDROmorphone Injectable: 0.5 mg IntraVenous Push Every 2 Hours 4. Magnesium Sulfate 2 gram/Sterile Water 50 mL Premix Soln: 2 gram(s) IntraVenous Piggyback Every 6 Hours 5. Magnesium Sulfate 4 gram/Sterile Water 100 mL Premix Soln: 4 gram(s) IntraVenous Piggyback Every 6 Hours 6. oxyCODONE Immediate Release: 5 mg Oral Every 4 Hours 7. Potassium Chloride 40 mEq/Sterile Water 100 mL Premix IVPB: 40 mEq IntraVenous Piggyback Every 6 Hours 8. Potassium Chloride Extended Release: 20 mEq Oral Every 6 Hours 9. Potassium Chloride Extended Release: 40 mEq Oral Every 6 Hours Recent Lab Results: Results: CBC: 10/06/2022 04:13 \ Hgb / \ 10.4 L / WBC Plt 15.5 H 209 / Hct \ / 33.4 L \ RBC: 3.73 L MCV: 90 CMP: 10/06/2022 04:13 NA+ Cl- BUN / 143 110 H 17 / ------ Glucose - 113 H K+ HCO3- Creat \ 4.3 27 1.06 \ \ T Bili / \ 0.9 / AST x ---- x ALT 60 Hx ---- x 76 H / Alk P \ / 246 H \ Calcium : 9.1 Anion Gap : 10 Albumin : 2.8 L T Protein : 5.6 L I have reviewed these laboratory results: Magnesium, Serum 06-Oct-2022 04:13:00 ResultValue Magnesium, Serum 1.39 L Results: Impression: No acute finding in the chest with no evidence of pulmonary embolism. Acute cholecystitis. Patent aorto bi iliac stent. No endoleak. Excluded sac of infrarenal abdominal aortic aneurysm measures up to 5.2 x 4.4 cm axial plane. Excluded sacs of the right and left common iliac arteries measure up to 2.7 and 2.5 cm, respectively. Trace pelvic ascites. Other chronic findings as above. CTA Chest (more content not included)... [facility] Daily Progress Note-Acute Ca re Surgeryon 10-06-2022 Daily Progress Note-Acute Care Surgery Service: Acute Care Surgery Subjective Data: GOPAL IRVING is a 71 year old Male who is Hospital Day # 2. Additional Information: Seen in follow-up of biliary sepsis. Patient 1 ERCP, stone extraction and placement of stent yesterday Patient comfortable this morning He is much more alert. He says he currently has no nausea, fever, chills Objective Data: Objective Information: T PRBPMAPSpO2 [id number]% Date/Time10/06 8: 11: 11: 11: 11: 11:00 Range(36C - 36.9C ) (54 - 80 ) (10 - 22 ) (62 - 189 )/ (48 - 91 ) (80 - 130 ) (95% - 99% ) Highest temp of 36.9 C was recorded at 10/05 10:01 Pain reported at 10/06 9:30: 2 = Mild ---- Intake and Output ----- Mn/Dy/ [facility] Oct 06, 2022 6:00 [id number] Oct 05, 2022 10:00 [id number] The Intake and Output Totals for the last 24 hours are: [facility] [id number] T PRBPMAPSpO2 [id number]% Date/Time10/06 8: 11: 11: 11: 11: 11:00 Range(36C - 36.9C ) (54 - 80 ) (10 - 22 ) (62 - 189 )/ (48 - 91 ) (80 - 130 ) (95% - 99% ) Highest temp of 36.9 C was recorded at 10/05 10:01 ---- Intake and Output ----- [facility]Dy/ [facility] Oct 06, 2022 6:00 [id number] Oct 05, 2022 10:00 [id number] The Intake and Output Totals for the last 24 hours are: [facility] [id number] Physical Exam by System: Constitutional: Well developed, awake/alert/oriented x3, no distress, alert and cooperative Eyes: Sclera clear Gastrointestinal: Abdomen soft and nontender No Torres sign Medication: Medications: Continuous Medications ------ 1. Lactated Ringers Infusion: 1000 mL IntraVenous Scheduled Medications ------ 1. Aspirin Enteric Coated: 81 mg Oral Daily 2. Atorvastatin: 20 mg Oral At Bedtime 3. Ferrous Sulfate: 325 mg Oral Daily 4. Heparin SubCutaneous: 5000 unit(s) SubCutaneous Every 8 Hours 5. Insulin Lispro Mild Corrective Scale: unit(s) SubCutaneous Every 4 Hours 6. Pantoprazole Injectable: 40 mg IntraVenous Push Every 24 Hours 7. PARoxetine - PEDS: 20 mg Oral Every Night 8. Piperacillin - Tazobactam 4.5 gram/Iso-osmotic 100 mL Premix IVPB: 100 mL IntraVenous Piggyback Every 8 Hours PRN Medications ------ 1. Dextrose 50% in Water Injectable: 25 gram(s) IntraVenous Push Every 15 Minutes 2. Glucagon Injectable: 1 mg IntraMuscular Every 15 Minutes 3. HYDROmorphone Injectable: 0.5 mg IntraVenous Push Every 2 Hours 4. Magnesium Sulfate 2 gram/Sterile Water 50 mL Premix Soln: 2 gram(s) IntraVenous Piggyback Every 6 Hours 5. Magnesium Sulfate 4 gram/Sterile Water 100 mL Premix Soln: 4 gram(s) IntraVenous Piggyback Every 6 Hours 6. oxyCODONE Immediate Release: 5 mg Oral Every 4 Hours 7. Potassium Chloride 40 mEq/Sterile Water 100 mL Premix IVPB: 40 mEq IntraVenous Piggyback Every 6 Hours 8. Potassium Chloride Extended Release: 20 mEq Oral Every 6 Hours 9. Potassium Chloride Extended Release: 40 mEq Oral Every 6 Hours Recent Lab Results: Results: CBC: 10/06/2022 04:13 \ Hgb / \ 10.4 L / WBC Plt 15.5 H 209 / Hct \ / 33.4 L \ RBC: 3.73 L MCV: 90 CMP: 10/06/2022 04:13 NA+ Cl- BUN / 143 110 H 17 / ------ Glucose - 113 H K+ HCO3- Creat \ 4.3 27 1.06 \ \ T Bili / \ 0.9 / AST x ---- x ALT 60 Hx ---- x 76 H / Alk P \ / 246 H \ Calcium : 9.1 Anion Gap : 10 Albumin : 2.8 L T Protein : 5.6 L I have reviewed these laboratory results: Glucose_POCT 06-Oct-2022 11:42:00 ResultValue Glucose-POCT 251 H Complete Blood Count 06-Oct-2022 04:13:00 ResultValue White Blood Cell Count 15.5 H Nucleated Erythrocyte Count 0.0 Red Blood Cell Count 3.73 L HGB 10.4 L HCT 33.4 L MCV 90 MCHC 31.1 L PLT 209 RDW-CV 15.7 H Comprehensive Metabolic Panel 06-Oct-2022 04:13:00 ResultValue Glucose, Serum 113 H NA 143 K 4.3 CL 110 H Bicarbonate, Serum 27 Anion Gap, Serum 10 BUN 17 CREAT 1.06 GFR Male 75 Calcium, Serum 9.1 ALB 2.8 L ALKP 246 H T Pro 5.6 L T Bili 0.9 Alanine Aminotransferase, Serum 76 H Aspartate Transaminase, Serum 60 H Magnesium, Serum 06-Oct-2022 04:13:00 ResultValue Magnesium, Serum 1.39 L Assessment and Plan: Comorbidities: ComorbidityOther Code Status: Code StatusFull Code Assessment: Assessment/ Doing well after ERCP and stent placement for cholangitis Cystic duct occlusion with likely concomitant low-grade acute cholecystitis Plan/ Yesterday the patient was confused and had early sepsis and hypotension. Today the patient is alert and has a benign abdominal exam. Blood pressure is much better his liver function tests look good. I think the ERCP and stent felipa (more content not included)... [facility] Daily Progress Note-Gastroen terologyon 10-06-2022 Daily Progress Note-Gastroenterology Service: Gastroenterology Subjective Data: GOPAL IRVING is a 71 year old Male who is Hospital Day # 2. Pt sitting up in bed in NAD. s/p ERCP with biliary stent placement. Stone sludge and pus removed. Pain much improved today. No nausea. Tolerating clears. Liver enzymes downtrending, bilirubin normalized. Leukocytosis improved. Plan to continue to monitor. Objective Data: Objective Information: T PRBPMAPSpO2 [id number]% Date/Time10/06 8: 11: 11: 11: 11: 11:00 Range(36C - 36.9C ) (54 - 80 ) (10 - 22 ) (62 - 189 )/ (48 - 91 ) (80 - 130 ) (95% - 99% ) Highest temp of 36.9 C was recorded at 10/05 10:01 Pain reported at 10/06 9:30: 2 = Mild ---- Intake and Output ----- Mn/Dy/Year TimeIntakeOutputNet Oct 06, 2022 6:00 [id number] Oct 05, 2022 10:00 [id number] The Intake and Output Totals for the last 24 hours are: IntakeOutputNet [id number] Weights 10/05 16:51: Weight in kg (Weight (kg)) 58 10/05 16:51: Weight in lbs ((lbs)) 127.8 10/05 16:51: BMI (kg/m2) (BMI (kg/m2)) 20.697 Physical Exam by System: Constitutional: Alert and interactive thin male, with decreased abd discomfort Eyes: PERRL, sclera clear, no conjunctival injection ENMT: Mucous membranes moist, no lesions noted Respiratory/Thorax: CTAB, even and unlabored Cardiovascular: RRR, normal S1, S2, no m,r,g Gastrointestinal: +BS, soft, flat, minimal RUQ TTP, no rebound tenderness or guarding, no palpable masses or organomegaly Musculoskeletal: 5/5 strength, ROM intact, no joint swelling Extremities: Extremities warm, no edema, contusions, wounds or cyanosis Neurological: Alert and oriented x3 Psychological: Appropriate mood and behavior Skin: Warm and dry, no rash or ecchymosis Medication: Medications: Continuous Medications ------ 1. Lactated Ringers Infusion: 1000 mL IntraVenous Scheduled Medications ------ 1. Aspirin Enteric Coated: 81 mg Oral Daily 2. Atorvastatin: 20 mg Oral At Bedtime 3. Ferrous Sulfate: 325 mg Oral Daily 4. Heparin SubCutaneous: 5000 unit(s) SubCutaneous Every 8 Hours 5. Insulin Lispro Mild Corrective Scale: unit(s) SubCutaneous Every 4 Hours 6. Pantoprazole Injectable: 40 mg IntraVenous Push Every 24 Hours 7. PARoxetine - PEDS: 20 mg Oral Every Night 8. Piperacillin - Tazobactam 4.5 gram/Iso-osmotic 100 mL Premix IVPB: 100 mL IntraVenous Piggyback Every 8 Hours PRN Medications ------ 1. Dextrose 50% in Water Injectable: 25 gram(s) IntraVenous Push Every 15 Minutes 2. Glucagon Injectable: 1 mg IntraMuscular Every 15 Minutes 3. HYDROmorphone Injectable: 0.5 mg IntraVenous Push Every 2 Hours 4. Magnesium Sulfate 2 gram/Sterile Water 50 mL Premix Soln: 2 gram(s) IntraVenous Piggyback Every 6 Hours 5. Magnesium Sulfate 4 gram/Sterile Water 100 mL Premix Soln: 4 gram(s) IntraVenous Piggyback Every 6 Hours 6. oxyCODONE Immediate Release: 5 mg Oral Every 4 Hours 7. Potassium Chloride 40 mEq/Sterile Water 100 mL Premix IVPB: 40 mEq IntraVenous Piggyback Every 6 Hours 8. Potassium Chloride Extended Release: 20 mEq Oral Every 6 Hours 9. Potassium Chloride Extended Release: 40 mEq Oral Every 6 Hours Recent Lab Results: Results: I have reviewed these laboratory results: Complete Blood Count 06-Oct-2022 04:13:00 ResultValue White Blood Cell Count 15.5 H Nucleated Erythrocyte Count 0.0 Red Blood Cell Count 3.73 L HGB 10.4 L HCT 33.4 L MCV 90 MCHC 31.1 L PLT 209 RDW-CV 15.7 H Comprehensive Metabolic Panel Trending View [id number] 04:13:00 05-Oct-2022 10:14:00 Glucose, Adyna824 H 168 H NA143 138 K4.3 4.2 CL110 H 104 Bicarbonate, Serum27 23 Anion Gap, Serum10 15 BUN17 15 CREAT1.06 1.27 GFR Male75 60 Calcium, Serum9.1 9.9 ALB2.8 L 3.7 CETZ870 H 337 H T Pro5.6 L 7.2 T Bili0.9 2.1 H Alanine Aminotransferase, Serum76 H 65 H Aspartate Transaminase, Serum60 H 116 H Magnesium, Serum Trending View [id number] 04:13:00 05-Oct-2022 10:14:00 Magnesium, Serum1.39 L 1.44 L Lactate, Level Trending View [id number] 17:50:00 05-Oct-2022 10:14:00 Lactate, Level0.8 2.5 H Troponin I, High Sensitivity Trending View [id number] 13:18:00 05-Oct-2022 12:10:00 05-Oct-2022 10:14:00 Troponin I, High Cueliujazjj85 H 33 H 43 H Culture, Blood Trending View [id number] 12:45:00 05-Oct-2022 12:43:00 Culture, BloodNEGATIVE TO DATE, CULTURE IN PROGRESS. NEGATIVE TO DATE, CULTURE IN PROGRESS. Influenza A/B,Covid 2019 PCR,Symptomatic 05-Oct-2022 10:42:00 ResultValue Fluid Source Nasal, Nasopharyngeal Influenza A PCR NOT DETECTED Reference Range: Not Detected Respiratory virus testing is performed routinely by PCR for Influenza A/B and RSV. Not Detected results do not preclude Influenza A/B or RSV infections since the ad (more content not included)... [facility] Discharge Planning Oflr3lr 0 10-06-2022 Discharge Planning Note2 Discharge Planning: [facility] Home Health Consultedno [place] [facility] Explainedyes Anticipated Discharge [id number] Discharge Planning 10-06-22 10:21am Social Work Note: Consult received for Advance Directives. Pastoral Care notified of consult, since their department completes Advance Directives at [facility]. SW to sign off. TCC can reconsult SW as needed. Mecca Butt [facility] TCC NOTE Call made to patients room d/t remote coverage. Patient alert and oriented x3. Also spoke with daughter at [facility]. Living/Resides: resides with. 2 daughters close by for assistance Patient recieves assistance from with ADLs and daughters for IADLs, to include med management. No falls per patient/ Independent with ambulation with walker and cane Denies any oxygen needs at baseline. PCP and pharmacy verified as listed. Insurance verified with patient as true and active. ADOD TBD- patient is wanting to go home soon. Additionally: Declined [facility] needs Patient Registration Clerk will continue to follow patient during course of hospital stay. Bettina Ren RN- Transitional Patient Registration Clerk 10/07/22 0830 TC Note: Patient continues to decline home care referral. Dr. Kelly would like him to reconsider and have PT/ot work with him today. He declined to work with therapy today. TC team will continue to monitor progression and potential discharge needs. Shant Figueroa RNtarget man Coordinator 10/08/22 1030 TC Note: Patient agreed to home health care on physian's rounds this am, but when I went to choice him and set it up , he is refusing. Assessment: Discharge Planning Assessment [id number] Discharge Planning Assessment Completed byBettina Ren RN- Transitional Patient Registration Clerk Primary Contact Name and Genet Irving Prior Level of FunctioningPatient gets assistance from with ADLs and daughters for IADLs Lives Withspouse(1) [facility]) Stated Reason for AdmissionBelly pain(1) [place] PCPMarc Naderer [facility] Falls/ Injury/ Need Assist with AmbulationNo falls per patient/ Independent with ambulation with walker/cane [facility], [facility]/straight Resource/Environmental Concernsnone(1) [place]) Services Anticipated at [facility] human resources talent manager; alf(1) Transportation Home Who/HowFamily will drive home Medication Adherence/Afford/Obtainyes ; Daughter manages his meds O2 LPMNone Discharge Documentation: Discharge/Transfer Date/[id number] Discharged Accompanied Byfamily member Transportation Methodprivate car Discharge Modewheelchair Code StatusCode Status order at time of discharge: Full Code Discharge Order Writtenyes Emanuel DNR Form Sent with Patient and/or Familyn/a Final Disposition.Home Electronic Signatures: Bettina Ren (CLIN COOR) (Signed 06-Oct-2022 13:33) Authored: Discharge Planning, Assessment Mecca Butt (CRANBERRY BOG SUPERVISOR) (Signed 06-Oct-2022 10:21) Authored: Discharge Planning, Assessment Shant Figueroa (RN) (Signed 08-Oct-2022 10:35) Authored: Discharge Planning, Discharge Documentation Sariah Vo (RN) (Signed 08-Oct-2022 16:16) Authored: Discharge Planning, Discharge Documentation Last Updated: 08-Oct-2022 16:16 by Sariah Vo (RN) References: 1. Data Referenced From Patient Profile - Adult v2 05-Oct-2022 16:51 [facility] GLUCOSE-POCTon 10-06-2022 Glucose [Mass/Vol] 159 mg/dL High 74 - 99 [facility] Comment on above: Performed By: #### G AIXA ####[facility] [place] [address] Glucose [Mass/Vol] 251 mg/dL High 74 - 99 [facility] Comment on above: Performed By: #### T RP #### [facility] [id number] [place] [id number] Glucose [Mass/Vol] 106 mg/dL High 74 - 99 [facility] Comment on above: Performed By: #### G AIXA ####[id number] [place] [address] Glucose [Mass/Vol] 103 mg/dL High 74 - 99 [facility] Comment on above: Performed By: #### M G #### [address] [address] Glucose [Mass/Vol] 108 mg/dL High 74 - 99 [facility] Comment on above: Performed By: #### M G #### [address] [address] Laboratory - Chemistry and C hemistry - challengeon 10-06-2022 Glucose [Mass/Vol] 170 mg/dL above high threshold 74 - 99 [facility] Work Phone: Glucose [Mass/Vol] 159 mg/dL above high threshold 74 - 99 [facility] Work Phone: Glucose [Mass/Vol] 251 mg/dL above high threshold 74 - 99 [facility] Work Phone: Glucose [Mass/Vol] 106 mg/dL above high threshold 74 - 99 -[facility] Work Phone: Glucose [Mass/Vol] 103 mg/dL above high threshold 74 - 99 [facility] Work Phone: Albumin BCP dye [Mass/Vol] 2.8 g/dL below low threshold 3.4 - 5.0 -[facility] Work Phone: ALP [Catalytic activity/Vol] 246 U/L above high threshold 33 - 136 -[facility] Work Phone: ALT With P-5'-P [Catalytic activity/Vol] 76 U/L above high threshold 10 - 52 -[facility] Work Phone: Comment on above: Patients treated wit h Sulfasalazine may generate falsely decreased results for ALT. Anion gap [Moles/Vol] 10 mmol/L 10 - 20 - [facility] Work Phone: AST With P-5'-P [Catalytic activity/Vol] 60 U/L above high threshold 9 - 39 -[facility] Work Phone: Bilirubin [Mass/Vol] 0.9 mg/dL 0.0 - 1.2 -[facility]ico[facility] Work Phone: Calcium [Mass/Vol] 9.1 mg/dL 8.6 - 10.3 [facility] Work Phone: Chloride [Moles/Vol] 110 mmol/L above high threshold 98 - 107 [facility] Work Phone: CO2 [Moles/Vol] 27 mmol/L 21 - 32 [facility] Work Phone: Creatinine [Mass/Vol] 1.06 mg/dL See Below - [facility] Work Phone: Comment on above: Reference Range: 0.5 0 - 1.30 Glucose [Mass/Vol] 113 mg/dL above high threshold 74 - 99 [facility] Work Phone: Potassium [Moles/Vol] 4.3 mmol/L 3.5 - 5.3 MP- [facility] Work Phone: Protein [Mass/Vol] 5.6 g/dL below low threshold 6.4 - 8.2 [facility] Work Phone: Sodium [Moles/Vol] 143 mmol/L 136 - 145 [facility] Work Phone: Urea nitrogen [Mass/Vol] 17 mg/dL 6 - 23 [facility] Work Phone: Laboratory - Hematology and Cell countson 10-06-2022 Erythrocyte distribution width (RBC) [Ratio] 15.7 % above high threshold See Below [facility] Work Phone: Comment on above: Reference Range: 11. 5 - 14.5 Hematocrit (Bld) [Volume fraction] 33.4 % below low threshold See Below [facility] Work Phone: Comment on above: Reference Range: 41. 0 - 52.0 Hemoglobin (Bld) [Mass/Vol] 10.4 g/dL below low threshold See Below [facility] Work Phone: Comment on above: Reference Range: 13. 5 - 17.5 MCHC (RBC) [Mass/Vol] 31.1 g/dL below low threshold See Below [facility] Work Phone: Comment on above: Reference Range: 32. 0 - 36.0 MCV (RBC) [Entitic vol] 90 fL 80 - 100 [facility] Work Phone: Platelets (Bld) [#/Vol] 209 10*3/uL 150 - 450 [facility] Work Phone: RBC (Bld) [#/Vol] 3.73 {x10E12/L} below low threshold See Below Nash will Work Phone: Comment on above: Reference Range: 4.5 0 - 5.90 WBC (Bld) [#/Vol] 15.5 10*3/uL above high threshold 4.4 - 11.3 Nash will Work Phone: MAGNESIUMon 10-06-2022 Magnesium [Mass/Vol] 1.39 mg/dL Low 1.60 - 2.40 [facility] Comment on above: Performed By: #### M G ####[facility] [place] [address] Magnesium, Serumon 3 Magnesium [Mass/Vol] 1.39 mg/dL below low threshold See Below Nash will Work Phone: Comment on above: Reference Range: 1.6 0 - 2.40 No Panel Informationon 10-06 75 {mL/min/1.73m2} >90 Osvaldo will Work Phone: Comment on above: CALCULATIONS OF BEV MATED GFR ARE PERFORMED USING THE 2020 CKD-EPI STUDY REFIT EQUATION WITHOUT THE RACE VARIABLE FOR THE IDMS-TRACEABLE CREATININE METHODS.https://jasn.asnjournals.org/content//A SN.7653372370 0.0 {/100_WBC} 0.0 - 0.0 Nash will Work Phone: Nutrition Therapy-Assessment on 10-06-2022 Nutrition Therapy-Assessment Assessment Subjective/Objective: Note Type: Assessment Note Authored by: Registered Dietitian Vegetable Buncher Pager Number: [phone] Nutrition Note: Nutrition Therapy re: nursing referral 71 year old male admitted 10/05 as referral from OSH due to chronic abdominal pain with extensive w/u at OSH; CT A/P noting diffuse hepatic steatosis, marked gallbladder wall thickening with surrounding fat stranding, 1.5 x 0.6 cm cystic area in pancreatic head/neck, small pancreatic pseudocyst or cystic IPMN. Pt s/p ERCP 10/05 with bilary stent placement; pt in need of cholecystectomy with General Surgery plan to perform at later date. Per IR, no current plan to place rachna tube as pt currently stable. PMHx: pancreatic mass, AAA s/p endovascular repair, left iliac artery aneurysm, HTN, current smoker, NIDDM 2, vit D deficiency, and HLD SurgHx: endovascular AAA repair 07/2021. Objective Information: T PRBPMAPSpO2 [id number]% Date/Time10/06 12: 13: 13: 13: 13: 13:00 Range(36C - 36.9C ) (54 - 80 ) (10 - 22 ) (62 - 189 )/ (48 - 91 ) (79 - 130 ) (95% - 99% ) Highest temp of 36.9 C was recorded at 10/05 10:01 Pain reported at 10/06 12:00: 2 = Mild ---- Intake and Output ----- Mn/Dy/Year TimeIntakeOutputNet Oct 06, 2022 2:00 [id number] Oct 06, 2022 6:00 [id number] Oct 05, 2022 10:00 [id number] The Intake and Output Totals for the last 24 hours are: IntakeOutputNet [id number] Height/Weight: Height in feet: 5 feet Height in inches: 6 inch(es) Height in cm: 167.6 centimeter(s) Weight (kg): 58 BMI (kg/m2): 20.648 square meter DBW (kg): 64.5 %DBW: 90 Weight history/ % weight change: 07/2022: 57.7kg 03/2022: 56.7kg Met with pt daughters in the hallway--physician at bedside. Per daughters, pt lost 100# BEFORE endoscopic AAA repair 07/2021 so it has been about 2 years; he has been stable for the past year. No one could tell us why he lost 100# or 44% >1 yr ago). Recent Lab Results: Results: I have reviewed these laboratory results: Glucose_POCT Trending View [id number] 11:42:00 06-Oct-2022 08:03:00 06-Oct-2022 04:39:00 05-Oct-2022 23:35:00 Glucose-RJIV595 H 106 H 103 H 108 H Comprehensive Metabolic Panel 06-Oct-2022 04:13:00 ResultValue Glucose, Serum 113 H NA 143 K 4.3 CL 110 H Bicarbonate, Serum 27 Anion Gap, Serum 10 BUN 17 CREAT 1.06 GFR Male 75 Calcium, Serum 9.1 ALB 2.8 L ALKP 246 H T Pro 5.6 L T Bili 0.9 Alanine Aminotransferase, Serum 76 H Aspartate Transaminase, Serum 60 H Magnesium, Serum 06-Oct-2022 04:13:00 ResultValue Magnesium, Serum 1.39 L Current Active Medications/PN: PARoxetine - PEDS, Tablet (PAXIL) DOSE = 20 mg Oral Every Night Ca mg/DOSE x 1 = 20 mg/Dose (Daily Total is 20 mg) Notes from Pharmacy: Reproductive Risk- Single Nitrile Glove, 05-Oct-2022 Atorvastatin, Tablet (LIPITOR) DOSE = 20 mg Oral At Bedtime, 05-Oct-2022 Aspirin Enteric Coated, Enteric Coated Tablet (ECOTRIN) DOSE = 81 mg Oral Daily, 05-Oct-2022 Heparin SubCutaneous, DOSE = 5,000 unit(s) SubCutaneous Every 8 Hours Notes from Pharmacy: Note Concentration Prior to Administration, 05-Oct-2022 Insulin Lispro Mild Corrective Scale, Give SubCutaneous Every 4 Hours Hypoglycemia Protocol Call LIP unit(s) if Blood Glucose is between 0 - 70 0 unit(s) if Blood Glucose is between 71 - 150 2 unit(s) if Blood Glucose is between 151 - 200 4 unit(s) if Blood Glucose is between 201 - 250 6 unit(s) if Blood Glucose is between 251 - 300 8 unit(s) if Blood Glucose is between 301 - 350 10 unit(s) if Blood Glucose is between 351 - 400 Notify Provider unit(s) if Blood Glucose is greater than 400 Notes from Pharmacy: GRISEL, 05-Oct-2022 Dextrose 50% in Water Injectable, DOSE = 25 gram(s) IntraVenous Push Every 15 Minutes, PRN Blood Glucose 70 mg/dL or LESS & HAS IV family preservation caseworker Notes: IF patient HAS a secure IV access & is Unconscious, Conscious, NPO or Unable to Eat or Drink. Repeat until BG reaches 100 mg/dL or greater. Push 2-3 mL/minute. Discontinue once BG reaches 100 mg/dL or greater., 05-Oct-2022 Glucagon Injectable, DOSE = 1 mg IntraMuscular Every 15 Minutes, PRN Blood Glucose 70 mg/dL or LESS & NO IV family preservation caseworker Notes: IF patient DOES NOT have secure IV access & is Unconscious, Conscious, NPO or Unable to Eat or Drink. Repeat until BG reaches 100 mg/dL or greater. Discontinue once BG reaches 100 mg/dL or greater., 05-Oct-2022 oxyCODONE Immediate Release, Tablet (OXYIR, ROXICODONE) DOSE = 5 mg Oral Every 4 Hours, PRN Pain - Mod (4-6), 05-Oct-2022 Ferrous Sulfate, Tablet (FEOSOL) DOSE = 325 mg Oral Daily, 06-Oct-2022 Magnesium Sulfate 4 gram/Sterile Water 100 mL Premix Soln, Once Recommended Infusion Time: 4 hour(s) Stop After 1 Doses, 06-Oct-2022 Pantoprazole, Enteric Coated Tablet (PROTONIX) DOSE = 40 mg Oral Daily, 06-Oct-2022 (more content not included)... Normal [facility] Admission Risk Screen - Adul ton 10-05-2022 Admission Risk Screen - Adult Allergies: Allergies: No Known Allergies: Patient Verification: New W ID Band Applied in my Departmentyes Patient Identity Verified Bypatient ID Band FULL Name, include Middle, spelling matches patient's ID used for verificationyes ID Band Matches Patient ID used for Verficationyes ID Band MRN Matches EMR MRNyes Visitor Restriction: Coronavirus Visitor Restriction: Reasonable restrictions to in-person visitors will be observed due to current coronavirus pandemic. Travel History: COVID-19 Screening Completedno exposure or symptoms(1) Travel or Exposure Past 30 DaysNO travel to International locations in the past 30 days Ebola AlertFor Ebola-like Symptoms: Isolate Patient and Notify Provider/Auto Body Customizer For Contact: Notify Provider/Auto Body Customizer Advance Directive: Advance Directive/DNRno (2) Advance Directive Information Giveninformation requested from Social Work [place] Fall Screen: History of falling (immediate or previous)no (0) Secondary Diagnosisyes (15) Intravenous Therapy/ Heparin/Saline Lockyes (20) Gait/Transferringweak (10) Ambulatory Aidsnone/bedrest/nurse assist (0) Mental Statusoriented to own ability (0) Score: Low risk (<25). Moderate risk (25-44). High risk (>44).45 [place]ney InterventionsHIGH INTERVENTIONS *Low and Moderate Interventions Plus: * supervised toileting at all times Family Violence Screen: Are you or have you been threatened or abused physically, emotionally, or sexually by anyoneno Do you feel UNSAFE going back to the place where you are livingno Clinical assessment: Are there any apparent signs of injuries/behaviors that could be related to abuse/neglectno Social Service Consult for abuse/neglect needed this visitno Functional Screen: Functional Screen: In the recent/past 2-4 weeks, patient or family have noticedno issues that require a speech/language consult at this time AM-PAC- Basic Mobility/Daily Activity: Patient baseline bedboundno Turning from your back to your side while in a flat bed without using bedrailsa little Moving from lying on your back to sitting on the side of a flat bed without using bedrailsa little Moving to and from bed to chair (including a wheelchair)a little Standing up from a chair using your arms (e.g. wheelchair or bedside chair)a little To walk in hospital rooma little Climbing 3-5 steps with railinga little Basic Mobility - Total Score18 Putting on and taking off regular lower body clothinga little Bathing (including washing, rinsing, drying)a little Putting on and taking off regular upper body clothinga lot Toileting, which includes using toilet, bedpan or urinala lot Taking care of personal grooming such as brushing teetha lot Eating Mealsa lot Daily Activity - Total Score14 Learning Assessment (Patient): Patient is Able to be Assessed for Learningyes Factors Influencing Readiness to Learnacuteness of illness Factors that Impact Ability to Learnnone Devices/Methods Used to Communicateglasses, hearing aids Learning Preferencesverbal instruction Cultural Considerationsnone Developmental Considerationsnone Protestant Considerationsnone Learning Assessment (Other Learner): Other learner availableyes... Learnerfamily Factors Influencing Readiness to Learnacuteness of illness Factors that Impact Ability to Learnnone Devices/Methods Used to Communicatenone Learning Preferencesverbal instruction Cultural Considerationsnone Developmental Considerationsnone Protestant Considerationsnone Depression Screen: During the past month, have you often been bothered by feeling down, depressed or hopelessno During the past month, have you often had little interest or pleasure in doing thingsno Have you had any thoughts of harming anyone elseno (1) [place] Suicide: Risk Screen Not Applicable/Able to Answerable to be screened In the Past Month: Have you wished you were or could go to sleep and not wake upno(1) In the Past Month: Have you had any actual thoughts of killing yourself no(1) Lifetime: Have you ever done, started to do, or prepared to do anything to end your lifeno [place] Suicide Risknegative Adult Nutrition Screen: Have you recently lost weight without tryingyes; 34 lb or more Have you been eating poorly because of a decreased appetiteyes Malnutrition Screening Tool Score5 Malnutrition Screening Tool RiskMST = 2 or more At Risk. Eating poorly and/or recent weight loss Nutrition Consult needed this visityes Can Patient Participate in Room Serviceyes, with assistance Patient requires Paper Dishes/Plastic Utensilsno Pain Screen: Pain Scalenumerical 0-10 Pain Scale Educationteaching provided Current Pain Level0 = None Acceptable Pain Level3 = Mild Expression of Pain (nonverbal)none Chronic Painyes Chronic Abdomen pain locationabdomen Spiritual Screen: Are there any cultural (more content not included)... Normal [facility] BLOOD CULTURE, BACTERIALon 0 10-05-2022 BLOOD CULTURE, BACTERIAL PATIENT: GOPAL IRVING LOCATION: [address]#: [id number] : 50 AGE: SEX: M ORDERED BY: NOLBERTO MATTHEW SOURCE: Blood COLLECTED: 10/05/22 12:45 ANTIBIOTICS AT [facility].: RECEIVED : 10/05/22 19:29 SITE: PERIPHERAL R E S U L T S BLOOD CULTURE, BACTERIAL FINAL 10/09/22 19:42 No Growth at 1 days No Growth at 2 days No Growth at 3 days NO GROWTH at 4 days - FINAL REPORT Normal [facility] Comment on above: Performed By: #### [facility] #### [facility] [address] [place] [address] BLOOD CULTURE, BACTERIAL PATIENT: GOPAL IRVING LOCATION: [address]#: [id number] : 50 AGE: SEX: M ORDERED BY: NOLBERTO MATTHEW SOURCE: Blood COLLECTED: 10/05/22 12:43 AN[facility]IOTICS AT [facility].: RECEIVED : 10/05/22 19:27 SITE: PERIPHERAL R E S U L T S BLOOD CULTURE, BACTERIAL FINAL 10/09/22 19:42 No Growth at 1 days No Growth at 2 days No Growth at 3 days NO GROWTH at 4 days - FINAL REPORT Normal [facility] Comment on above: Performed By: #### [facility] #### [address] [address] CBC AND DIFFERENTIALon 10-05 % AUTOMATED IMMATURE GRAN 0.6 % Normal 0.0 - 0.9 [facility] Comment on above: Result Comment: Lisa ture Granulocyte Count (IG) includes promyelocytes, myelocytes and metamyelocytes but does not include bands. Percent differential counts (%) should be interpreted in the context of the absolute cell counts (cells/L). Performed By: #### C [facility] #### [address] [address] Basophils (Bld) [#/Vol] 0.07 10*3/uL Normal 0.00 - 0.10 [facility] Comment on above: Performed By: #### C [facility] #### [address] [address] Basophils/100 WBC (Bld) 0.3 % Normal 0.0 - 2.0 [facility] Comment on above: Performed By: #### C [facility] #### [address] [address] Eosinophils (Bld) [#/Vol] 0.01 10*3/uL Normal 0.00 - 0.40 [facility] Comment on above: Performed By: #### C [facility] #### [address] [address] Eosinophils/100 WBC (Bld) 0.0 % Normal 0.0 - 6.0 [facility] Comment on above: Performed By: #### C [facility] #### [address] [address] Erythrocyte distribution width (RBC) [Ratio] 15.9 % High 11.5 - 14.5 [facility] Comment on above: Performed By: #### C [facility] #### [address] [address] Hematocrit (Bld) [Volume fraction] 42.3 % Normal 41.0 - 52.0 [facility] Comment on above: Performed By: #### C [facility] #### [address] [address] Hemoglobin (Bld) [Mass/Vol] 13.5 g/dL Normal 13.5 - 17.5 [facility] Comment on above: Performed By: #### C [facility] #### [address] [address] Lymphocytes (Bld) [#/Vol] 1.33 10*3/uL Normal 0.80 - 3.00 [facility] Comment on above: Performed By: #### C [facility] #### [address] [address] Lymphocytes/100 WBC (Bld) 5.7 % Normal 13.0 - 44.0 [facility] Comment on above: Performed By: #### C [facility] #### [address] [address] MCHC (RBC) [Mass/Vol] 31.9 g/dL Low 32.0 - 36.0 [facility] Comment on above: Performed By: #### C [facility] #### [address] [address] MCV (RBC) [Entitic vol] 88 fL Normal 80 - 100 [facility] Comment on above: Performed By: #### C [facility] #### [address] [address] Monocytes (Bld) [#/Vol] 1.25 10*3/uL High 0.05 - 0.80 [facility] Comment on above: Performed By: #### C [facility] #### [address] [address] Monocytes/100 WBC (Bld) 5.3 % Normal 2.0 - 10.0 [facility] Comment on above: Performed By: #### C [facility] #### [address] [address] Neutrophils (Bld) [#/Vol] 20.65 10*3/uL High 1.60 - 5.50 [facility] Comment on above: Performed By: #### C [facility] #### [address] [address] Neutrophils/100 WBC (Bld) 88.1 % Normal 40.0 - 80.0 [facility] Comment on above: Performed By: #### C [facility] #### [address] [address] NUCLEATED RBC 0.0 /100 WBC Normal 0.0 - 0.0 [facility] Comment on above: Performed By: #### C [facility] #### [address] [address] Platelets (Bld) [#/Vol] 294 10*3/uL Normal 150 - 450 [facility] Comment on above: Performed By: #### C [facility] #### [address] [address] RBC 4.80 x10E12/L Normal 4.50 - 5.90 [facility] Comment on above: Performed By: #### C BC #### [address] [address] WBC (Bld) [#/Vol] 23.4 10*3/uL High 4.4 - 11.3 [facility] Comment on above: Performed By: #### C BC #### [address] [address] COMPREHENSIVE PANELon 2022 Albumin [Mass/Vol] 3.7 g/dL Normal 3.4 - 5.0 [facility] Comment on above: Performed By: #### C BC #### [address] [address] ALP [Catalytic activity/Vol] 337 U/L High 33 - 136 [facility] Comment on above: Performed By: #### C [facility] #### [address] [address] ALT [Catalytic activity/Vol] 65 U/L High 10 - 52 [facility] Comment on above: Result Comment: Radha ents treated with Sulfasalazine may generate falsely decreased results for ALT. Performed By: #### C BC #### [address] [address] Anion gap [Moles/Vol] 15 mmol/L Normal 10 - 20 [facility] Comment on above: Performed By: #### C BC #### [address] [address] AST [Catalytic activity/Vol] 116 U/L High 9 - 39 [facility] Comment on above: Performed By: #### C BC #### [address] [address] Bilirubin [Mass/Vol] 2.1 mg/dL High 0.0 - 1.2 [facility] Comment on above: Performed By: #### C BC #### [address] [address] Calcium [Mass/Vol] 9.9 mg/dL Normal 8.6 - 10.3 [facility] Comment on above: Performed By: #### C BC #### [address] [address] Chloride [Moles/Vol] 104 mmol/L Normal 98 - 107 [facility] Comment on above: Performed By: #### C BC #### [address] [address] Creatinine [Mass/Vol] 1.27 mg/dL Normal 0.50 - 1.30 [facility] Comment on above: Performed By: #### C BC #### [address] [address] GFR/1.73 sq M.predicted among non-blacks MDRD (S/P/Bld) [Vol rate/Area] 60 mL/min/{1.73_m2} Normal >90 [facility] Comment on above: Result Comment: CALC ULATIONS OF ESTIMATED GFR ARE PERFORMED USING THE 2020 CKD-EPI STUDY REFIT EQUATION WITHOUT THE RACE VARIABLE FOR THE IDMS-TRACEABLE CREATININE METHODS. https://jasn.asnjournals.org/content/early/ASN.04855 [address] Performed By: #### C BC #### [address] [place] [address] Glucose [Mass/Vol] 168 mg/dL High 74 - 99 [facility] Comment on above: Performed By: #### C BC #### [address] [address] HCO3 (Bld) [Moles/Vol] 23 mmol/L Normal 21 - 32 [facility] Comment on above: Performed By: #### C BC #### [address] [address] Potassium [Moles/Vol] 4.2 mmol/L Normal 3.5 - 5.3 [facility] Comment on above: Performed By: #### C BC #### [address] [address] Protein [Mass/Vol] 7.2 g/dL Normal 6.4 - 8.2 [facility] Comment on above: Performed By: #### C BC #### [address] [address] Sodium [Moles/Vol] 138 mmol/L Normal 136 - 145 [facility] Comment on above: Performed By: #### C BC #### [address] [address] Urea nitrogen [Mass/Vol] 15 mg/dL Normal 6 - 23 [facility] Comment on above: Performed By: #### C BC #### [address] [address] Clinical Event Note-GI UPDAT E: ERCPon 10-05-2022 Clinical Event Note-GI UPDATE: ERCP Clinical Event: Clinical Event Note: TopicGI UPDATE: ERCP Details Patient presented for EUS and ERCP, pursued as inpatient given presentation with pain, elevated LFTs, leukocytosis and imaging findings concerning for cholecystitis. EUS with distended GB with sludge, normal GB wall. Dilated CBD with stone noted. Pancreatic cyst in HoP (14 mm), no mass. No PD dilation. ERCP with biliary sphincterotomy, stone removal, and removal of copious amounts of pus. Plastic biliary stent was placed. Patient clinically stable, BP 110s. Notes minimal to no pain post ERCP. Case discussed in detail with IR. Although cystic was not seen on cholangiogram, clinical improvement seen with relief of distal obstruction and treatment of ascending cholangitis. Will hold on C-tube at this time; reevaluate should change in hemodynamics be noted. Of not EUS-GB drainage was not feasible on today's examination given orientation of gallbladder away from stomach and duodenal diverticulum at location of bulb access. OK for clears. Check LFTs, CBC in AM. Contact GI and IR if fever or change in hemodynamics. Continue ABX. Contact with questions and/or concerns. Discussed with ICU team. Blu Weber MD Electronic Signatures: Alyssia Weber) (Signed 05-Oct-2022 16:59) Authored: Clinical Event Note Last Updated: 05-Oct-2022 16:59 by Alyssia Weber) [facility] Clinical Intervention - Johnnie broderick 10-05-2022 Clinical Intervention - Pharmacy Pharmacist's Clinical Intervention: Type of recommendation: Family Is this intervention medication reconciliation related: yes, History Electronic Signatures: Meera Franks ([employer]) (Signed 05-Oct-2022 12:10) Authored: Pharmacist's Clinical Intervention Last Updated: 05-Oct-2022 12:10 by Meera Franks ([employer]) [facility] Clinical Intervention - Pharmacy Pharmacist's Clinical Intervention: Type of recommendation: Family Is this intervention medication reconciliation related: yes, Allergy Electronic Signatures: Meera Franks ([employer]) (Signed 05-Oct-2022 12:09) Authored: Pharmacist's Clinical Intervention Last Updated: 05-Oct-2022 12:09 by Meera Franks ([employer]) [facility] Complete Blood Count + Diffe rentialon 10-05-2022 Basophils/100 WBC (Bld) 0.3 % 0.0 - 2.0 [facility]-Camila nicolette Work Phone: Erythrocyte distribution width (RBC) [Ratio] 15.9 % above high threshold See Below [facility]Cam[facility] nicolette Work Phone: Comment on above: Reference Range: 11. 5 - 14.5 Hematocrit (Bld) [Volume fraction] 42.3 % See Below [facility] nicolette Work Phone: Comment on above: Reference Range: 41. 0 - 52.0 Hemoglobin (Bld) [Mass/Vol] 13.5 g/dL See Below [facility]Cam[facility] nicolette Work Phone: Comment on above: Reference Range: 13. 5 - 17.5 Lymphocytes/100 WBC (Bld) 5.7 % See Below [facility] nico[facility] Work Phone: Comment on above: Reference Range: 13. 0 - 44.0 MCHC (RBC) [Mass/Vol] 31.9 g/dL below low threshold See Below [facility] nico[facility] Work Phone: Comment on above: Reference Range: 32. 0 - 36.0 MCV (RBC) [Entitic vol] 88 fL 80 - 100 [facility] n[facility] Work Phone: Monocytes/100 WBC (Bld) 5.3 % 2.0 - 10.0 [facility] Work Phone: Neutrophils/100 WBC (Bld) 88.1 % See Below [facility] nico[facility] Work Phone: Comment on above: Reference Range: 40. 0 - 80.0 Platelets (Bld) [#/Vol] 294 10*3/uL 150 - 450 [facility]Cam[facility] nicolette Work Phone: RBC (Bld) [#/Vol] 4.80 {x10E12/L} See Below [facility]Camila nicolette Work Phone: Comment on above: Reference Range: 4.5 0 - 5.90 WBC (Bld) [#/Vol] 23.4 10*3/uL above high threshold 4.4 - 11.3 [facility] Work Phone: Complete Blood Count + Differential 0.07 {x10E9/L} See Below [facility] Work Phone: Comment on above: Reference Range: 0.0 0 - 0.10 Complete Blood Count + Differential 0.01 {x10E9/L} See Below [facility] [place]-Camila will Work Phone: Comment on above: Reference Range: 0.0 0 - 0.40 Complete Blood Count + Differential 1.25 {x10E9/L} above high threshold See Below [facility]-Camila will Work Phone: Comment on above: Reference Range: 0.0 5 - 0.80 Complete Blood Count + Differential 1.33 {x10E9/L} See Below [facility] Work Phone: Comment on above: Reference Range: 0.8 0 - 3.00 Complete Blood Count + Differential 20.65 {x10E9/L} above high threshold See Below [facility] Work Phone: Comment on above: Reference Range: 1.6 0 - 5.50 Complete Blood Count + Differential 0.0 % 0.0 - 6.0 [facility] will Work Phone: Complete Blood Count + Differential 0.6 % 0.0 - 0.9 [facility] DemetrioCamila will Work Phone: Comment on above: Immature Granulocyte Count (IG) includes promyelocytes, myelocytes and metamyelocytes but does not include bands. Percent differential counts (%) should be interpreted in the context of the absolute cell counts (cells/L). Complete Blood Count + Differential 0.0 {/100_WBC} 0.0 - 0.0 [facility] DemetrioCamila will Work Phone: Consult-Acute Care Surgeryon 10-05-2022 Consult-Acute Care Surgery Service: Service: Acute Care Surgery Consult: Consult requested by (Attending Name): No Attending associated with this Visit Reason: Acute choecystitis History of Present Illness: HPI: GOPAL IRVING is a 71 year old MaleWith past medical history of AAA s/p endovascular repair, left iliac artery aneurysm, current smoker, and NIDDM 2, HLD, who presented to [facility] with chronic abdominal pain and plans for pancreatic biopsy. He has been following with physicians at [facility] in [place] for chronic medical problems and most recently a pancreatic mass found on CT. Of note patient reports 150 pound weight loss in the past year and a half. Because his pain acutely worsened today he was told to go to the ED rather than for planned pancreatic biopsy. CT chest abdomen pelvis showed findings suggestive of acute cholecystitis, for which general surgery was consulted. Review Family/Social History and ROS: Social History: Smoking Status: moderate user (uses 11-30 cig/day, OR 0.5-1.5 ppd, OR 2-3 cans/pouches loose leaf tobacco per week, OR 0.5-1.5 vape pods per day) (1) Alcohol Use: denies(1) Drug Use: denies (1) Allergies: codeine: Unknown Objective: Objective Information: T PRBPMAPSpO2 [id number]/5695% Date/Time10/05 10: 13: 13: 13: 13:10 Range(36.9C - 36.9C ) (64 - 79 ) (15 - 16 ) (62 - 102 )/ (48 - 64 ) (95% - 96% ) Highest temp of 36.9 C was recorded at 10/05 10:01 Physical Exam Narrative: Physical Exam: Vitals: vital signs reviewed General: Appears older than stated age, no acute distress, answers all questions appropriately HENT: Normocephalic, atraumatic, moist mucous membranes, Eyes: clear conjunctiva, anicteric, PERRL, EOMI Abd: soft, tender RUQ, nondistended, no guarding, no rebound tenderness Neuro: alert and oriented x3, speech appropriate, no gross deficits Skin: warm and dry, no rash or lesions MSK: no joint swelling, ROM/strength equal and intact bilaterally Psych: appropriate mood and behavior for setting Recent Lab Results: Results: I have reviewed these laboratory results: Troponin I, High Sensitivity Trending View [id number] 12:10:00 05-Oct-2022 10:14:00 Troponin I, High [id number] H 43 H Complete Blood Count + Differential 05-Oct-2022 10:14:00 ResultValue White Blood Cell Count 23.4 H Nucleated Erythrocyte Count 0.0 Red Blood Cell Count 4.80 HGB 13.5 HCT 42.3 MCV 88 MCHC 31.9 L PLT 294 RDW-CV 15.9 H Neutrophil % 88.1 Immature Granulocytes % 0.6 Lymphocyte % 5.7 Monocyte % 5.3 Eosinophil % 0.0 Basophil % 0.3 Neutrophil Count 20.65 H Lymphocyte Count 1.33 Monocyte Count 1.25 H Eosinophil Count 0.01 Basophil Count 0.07 Comprehensive Metabolic Panel 05-Oct-2022 10:14:00 ResultValue Glucose, Serum 168 H NA 138 K 4.2 CL 104 Bicarbonate, Serum 23 Anion Gap, Serum 15 BUN 15 CREAT 1.27 GFR Male 60 Calcium, Serum 9.9 ALB 3.7 ALKP 337 H T Pro 7.2 T Bili 2.1 H Alanine Aminotransferase, Serum 65 H Aspartate Transaminase, Serum 116 H PT + INR, Plasma 05-Oct-2022 10:14:00 ResultValue Prothrombin Time, Plasma 14.1 H International Normalized Ratio, Plasma 1.2 H Lactate, Level 05-Oct-2022 10:14:00 ResultValue Lactate, Level 2.5 H Lipase, Serum 05-Oct-2022 10:14:00 ResultValue Lipase, Serum 5 L Magnesium, Serum 05-Oct-2022 10:14:00 ResultValue Magnesium, Serum 1.44 L Radiology Results: Results: Impression: No acute finding in the chest with no evidence of pulmonary embolism. Acute cholecystitis. Patent aorto bi iliac stent. No endoleak. Excluded sac of infrarenal abdominal aortic aneurysm measures up to 5.2 x 4.4 cm axial plane. Excluded sacs of the right and left common iliac arteries measure up to 2.7 and 2.5 cm, respectively. Trace pelvic ascites. Other chronic findings as above. CTA Chest Abdomen + Pelvis [Oct 05 2022 12:13PM] Assessment: Assessment: 71-year-old male with multiple chronic medical illnesses presenting with abdominal pain, leukocytosis, and CT imaging suggestive of acute cholecystitis. Reports approximately 150 pound weight loss over the past year and a half. Has been following with GI and other physicians and [facility] for suspected pancreatic mass for which she initially presented to [facility] to have biopsy done today. He was triaged to ED because of acute increase in abdominal pain and was found to be hypotensive. Plan: From general surgery standpoint patient is not appropriate for surgical intervention at this time. Would recommend percutaneous cholecystostomy placement and medical management with reconsideration of cholecystectomy at a later date. This note is incomplete and only completed with the signature of my attending. Assessment and plan discussed with attending physician, Junaid (more content not included)... Normal [facility] Consult-Gastroenterologyon 0 10-05-2022 Consult-Gastroenterolo meli Service: Service: Gastroenterology Consult: Consult requested by (Attending Name): Ronnie Amezquita Reason: Concern for ascending cholangitis History of Present Illness: Admission Reason: Acute on chronic abdominal pain HPI: GOPAL IRVING is a 71 year old Male with GI consult with concern for ascending cholangitis. PMH significant for recent AAA s/p endovascular repair, HTN, HLD, T2DM, nicotine dependence. Patient presenting with acute on chronic abdominal pain that been going on for months with extensive work-up at [facility]. He and his family state that symptoms have been going on for many months, beginning after his AAA repair with up to 100 pound weight loss since that time. At one point, there was concern for pancreatic mass on CT which was not demonstrated on MRCP. CA 19-9 had been slightly elevated. CT at [facility] yesterday noted gallbladder wall thickening with pericholecystic fluid but no biliary dilation. It did note stones in the gallbladder neck. Surgery consulted here as well. He has undergone multiple endoscopic procedures with no specific findings. He was scheduled for pancreatic biopsy with Dr. Weber here today but presented to the ER with significant RUQ pain. He had been having intermittent abdominal pain that has become more constant and severe over the past couple of weeks. He endorses nausea without vomiting intermittently. He currently denies lightheadedness, dizziness, fever, chills, CP, SOB, diarrhea, constipation, hematochezia, melena. Patient has been intermittently hypotensive with systolic in the 80s though improving to 90s and low 100s currently. Labs note leukocytosis of 23.4, hemoglobin 13.5, platelets 294, INR 1.2. Liver enzymes noting alk phos 337, ALT 65, AST 116, T. bili 2.1, lipase 5, lactate 2.5, troponin 33. CT A/P noting diffuse hepatic steatosis, marked gallbladder wall thickening with surrounding fat stranding, 1.5 x 0.6 cm cystic area in pancreatic head/neck, small pancreatic pseudocyst or cystic IPMN cannot be excluded. Nonobstructing renal stones. Appearance circumferential wall thickening of distal stomach and duodenal bulb. PMH: AAA status post endovascular repair, known left iliac artery aneurysm, smoking, DM2, HTN, HLD PSH: AAA repair 07/2021 Family Hx: No known GI malignancies Social: 1 PPD smoker, no alcohol, recreational drug use Review Family/Social History and ROS: Constitutional: POSITIVE: Weight Loss; NEGATIVE: Fever, Chills, Anorexia, Malaise Eyes: NEGATIVE: Blurry Vision, Drainage, Diploplia, Redness, Vision Loss/ Change ENMT: NEGATIVE: Nasal Discharge, Nasal Congestion, Ear Pain, Mouth Pain, Throat Pain Respiratory: NEGATIVE: Dry Cough, Productive Cough, Hemoptysis, Wheezing, Shortness of Breath Cardiac: NEGATIVE: Chest Pain, Dyspnea on Exertion, Orthopnea, Palpitations, Syncope Gastrointestinal: POSITIVE: Nausea, Abdominal Pain; NEGATIVE: Vomiting, Diarrhea, Constipation Musculoskeletal: POSITIVE: Weakness; NEGATIVE: Decreased ROM, Pain, Swelling, Stiffness Neurological: NEGATIVE: Dizziness, Confusion, Headache, Seizures, Syncope Skin: NEGATIVE: Mass, Pain, Pruritus, Rash, Ulcer Hematologic/Lymph: NEGATIVE: Anemia, Bruising, Easy Bleeding, Night Sweats, Petechiae Allergies: No Known Allergies: Objective: Objective Information: T PRBPMAPSpO2 [id number]/5697% Date/Time10/05 10: 13: 13: 13: 13:44 Range(36.9C - 36.9C ) (63 - 79 ) (15 - 17 ) (62 - 102 )/ (48 - 64 ) (95% - 97% ) Highest temp of 36.9 C was recorded at 10/05 10:01 Weights 10/05 10:01: Weight in lbs ((lbs)) 127.8 10/05 10:01: Weight in kg (Weight (kg)) 58 10/05 10:01: BMI (kg/m2) (BMI (kg/m2)) 20.648 Physical Exam by System: Constitutional: Alert and interactive thin male, with RUQ pain, family at bedside Eyes: PERRL, sclera clear, no conjunctival injection ENMT: Mucous membranes moist, no lesions noted Respiratory/Thorax: CTAB, even and unlabored Cardiovascular: RRR, normal S1, S2, no m,r,g Gastrointestinal: +BS, soft, flat, RUQ TTP, no rebound tenderness or guarding, no palpable masses or organomegaly Musculoskeletal: 5/5 strength, ROM intact, no joint swelling Extremities: Extremities warm, no edema, contusions, wounds or cyanosis Neurological: Alert and oriented x3 Psychological: Appropriate mood and behavior Skin: Pale, warm and dry, no rash or ecchymosis Medications: Medications: Continuous Medications ------ No continuous medications are active Scheduled Medications ------ 1. Lactated Ringers IV Bolus: 1000 mL IntraVenous Piggyback Once 2. Lactated Ringers IV Bolus: 1000 mL IntraVenous Piggyback Once PRN Medications ------ No PRN medications are active Recent Lab Results: Results: I have reviewed these (more content not included)... Normal [facility] Covid 19 Resultson 3 SARS-CoV-2 (COVID-19) RNA GLORIA+probe Ql (Unsp spec) NEGATIVE COVID-19 Test Coronaviruses are common world-wide and are the cause of many common colds. SARS-COV2 is a new coronavirus that began circulating worldwide in 2019 so we are calling it COVID-19. It has been estimated that four out of five patients with COVID-19 will recover at home without the need for medical attention. Symptoms of COVID-19 may include cough, fever, shortness of breath, loss of taste or smell and other flu-like symptoms including chills, sore muscles, sore throat, and headache. Severe illness is more common in older people and people with other health problems such as high blood pressure, obesity, and immune system problems. If the test is positive, you have COVID-19. You will be contacted by the ordering physicians office and instructed to remain on home isolation, in accordance with CDC guidelines. You may also be contacted by the [facility] to see if any of your close contacts may have been exposed to the virus and need to quarantine. If the test is negative, you likely do not have COVID-19 at this time, but you still may have a different illness that can spread to other people (like Influenza, or the Flu) and could still be at risk for getting COVID-19. We recommend that you stay away from other people to limit the spread of illness until your symptoms are improving and you are fever-free for 24 hours without the use of fever lowering medications such as acetaminophen or ibuprofen. No test is 100% accurate so if you are still concerned you may have COVID-19, talk to your doctor about the need to continue to stay away from others. Medicines Unless your provider told you not to use the following: Acetaminophen (Tylenol and others) is generally safe. Anti-inflammatory medications, such as Ibuprofen (Advil or Motrin) or Naproxen (Aleve) can also be used. Bghj-djp-arerlar cough and cold medicines can be used according to the instructions on the package. Some mmfo-ifj-pemroua medicines also contain acetaminophen. Make sure you are not taking more than your recommended dose. For those not hospitalized, there is no specific treatment available for this illness. Antibiotics do not treat Coronaviruses. Follow-Up Follow up with your doctor by scheduling a virtual visit or consider follow-up at one of our urgent care fever clinics. If you are having difficulty breathing, or are very weak and having difficulty standing, this is a medical emergency. Call 911 or have someone take you to the nearest emergency room immediately. If possible, wear a facemask. Additional guidance from the CDC for patients who tested POSITIVE for COVID-19 How to isolate: Isolate yourself in a specific room at home and limit your contact with others. Use a separate bathroom from other members of the household, when possible. Leave home only to get essential medical care. Do not go to work, school or public areas. Avoid using public transportation, ride-sharing, or taxis. Restrict contact with pets and other animals. If you must care for your pet or be around animals while you are sick, wash your hands before and after your interaction and wear a facemask. Make sure that shared spaces in the home have good airflow, such as by an air conditioner or an opened window, weather permitting. Personal Hygiene Procedures: Wear a face mask when in the same room as other people or pets. If a face mask interferes with your breathing, others should wear a mask when sharing space with you. Frequent hand-washing: wash your hands with soap and water for at least 20 seconds. If soap and water are not available, use alcohol-based hand acid dipper. Avoid touching your eyes, nose, and mouth with unwashed hands. Household Hygiene Procedures: Avoid sharing personal household items such as dishes, glassware, cups, eating utensils, towels or bedding with other people or pets in your home. After use, these items should be washed with soap and hot water. Disinfect all high-touch surfaces every day with antibacterial cleaning solutions such as Lysol wipes, bleach, cleansers, etc. High-touch surfaces include tabletops, doorknobs, bathroom fixtures, toilets, phones, keyboards, tablets and bedside tables. Immediately clean any surfaces that may have blood, poop or body fluids on them, using antibacterial cleaning solutions such as Lysol wipes, bleach, cleansers, etc. If clothing or bedding come into contact with blood, poop or body fluids, they should be washed immediately. Follow the directions on the laundry detergent and clothing labels but hot water is recommended when possible. Stopping home isolation precautions: If possible, consult your doctor before stopping home isolation precautions. According to the CDC, you can discontinue home isolation precautions when you have met both of these criteria: Your fever and respiratory symptoms have been gone for 24 jolie (more content not included)... Normal [facility] Cult, Bloodon 10-05-2022 Bacteria identified Cx Nom (Bld) Nash will Work Phone: Bacteria identified Cx Nom (Bld) [facility] will Work Phone: Daily Progress Note-Acute Ca re Surgeryon 10-05-2022 Daily Progress Note-Acute Care Surgery Service: Acute Care Surgery Subjective Data: GOPAL IRVING is a 71 year old Male who is Hospital Day # 1. Objective Data: Objective Information: T PRBPMAPSpO2 [id number]/9197% Date/Time10/05 10: 14: 14: 14: 14:22 Range(36.9C - 36.9C ) (63 - 79 ) (15 - 17 ) (62 - 126 )/ (48 - 91 ) (95% - 97% ) Highest temp of 36.9 C was recorded at 10/05 10:01 Recent Lab Results: Results: CBC: 10/05/2022 10:14 \ Hgb / \ 13.5 / WBC Plt 23.4 H 294 / Hct \ / 42.3 \ RBC: 4.80 MCV: 88 Neutrophil %: 88.1 CMP: 10/05/2022 10:14 NA+ Cl- BUN / 138 104 15 / ------ Glucose - 168 H K+ HCO3- Creat \ 4.2 23 1.27 \ \ T Bili / \ 2.1 H / AST x ---- x ALT 116 Hx ---- x 65 H / Alk P \ / 337 H \ Calcium : 9.9 Anion Gap : 15 Albumin : 3.7 T Protein : 7.2 Coagulation: 10/05/2022 10:14 PT / 14.1 H / -------< INR < 1.2 H PTT\ \ Assessment and Plan: Comorbidities: ComorbidityOther Code Status: Code StatusFull Code Advance Care Planning: Advance Care Planning: x Assessment: Update at 1645. Notified that ERCP with stent placement accomplished. Evacuation of CBD pus c/w cholangitis noted. Pt responding with better BP. Notified of plan to not perform tube cholecystostomy at this moment , but rather re assess over next 12-24 hr Electronic Signatures: Franky Mattson) (Signed 05-Oct-2022 16:50) Authored: Service, Subjective Data, Objective Data, Assessment and Plan, Note Completion Last Updated: 05-Oct-2022 16:50 by Franky Mattson) [facility] ERCPon 10-05-2022 ERCP PATIENTNAME Patient Name: Gopal Irving EXAMDATE Procedure Date: 10/05/2022 3:23 PM PATIENTID PATIENTACCOUNTNUM PATIENTDOB Date of : 1950 ADMITTYPE Admit Type: Inpatient PATIENTROOM Site: [facility] Endo 1 ETHNICITY Ethnicity: Not or RACE Race: White PROVDR Attending MD: Alyssia Weber MD, [id number] ENDOPROCEDURENAME Procedure: ERCP INDICATION Indications: Abdominal pain of suspected biliary origin, Abnormal abdominal CT, Elevated liver enzymes PTPROFILE Patient Profile: This is a 71 year old male. Refer to note in patient chart for documentation of history and physical. PRIMARYPROVIDER Providers: Alyssia Weber MD (Doctor), Meredith Castellanos RN (Nurse), Sachin Pierson, Sociology Teacher EDREFPROVIDER Referring: CURRENT_MEDS Medicines: General Anesthesia, Indomethacin 100 mg MT COMPLIC Complications: No immediate complications. ENDOPROCEDURETEXT Procedure: Pre-Anesthesia Assessment: - Prior to the [...] the physician, the nurse, the anesthesiologist, the string winding machine operator and the pbx technician in the procedure room. Mental Status Examination: alert and oriented. Airway Examination: normal oropharyngeal airway and neck mobility. Respiratory Examination: clear to auscultation. CV Examination: normal. Prophylactic Antibiotics: The patient does not require prophylactic antibiotics. Prior Anticoagulants: The patient has taken no anticoagulant or antiplatelet agents. ASA Grade Assessment: III - A patient [...] and oxygen saturations were monitored continuously. The Linear Endosonoscope was introduced through the mouth, and advanced to the and used to inject contrast into the bile duct. The ERCP was accomplished without difficulty. The patient tolerated the procedure well. The duodenoscope was introduced through the mouth, and advanced to the duodenum and used to inject contrast into the bile duct. FINDING Findings: A standard esophagogastroduodenoscopy scope was used for the examination of the upper gastrointestinal tract. The scope was passed under direct vision through the upper GI tract. LA Grade B (one or more mucosal breaks greater than 5 mm, not extending between the tops of two mucosal folds) esophagitis with no bleeding was found at the gastroesophageal junction. No gross lesions were noted in the entire examined stomach. A medium non-bleeding diverticulum was found in the duodenal bulb. The exam of the duodenum was otherwise normal. An echoendoscope was used for examination. There was marked distention in the gallbladder with copious amounts of sludge seen. One stone was visualized endosonographically in the common bile duct. The stone measured 6 mm in greatest dimension. It was hyperechoic. There was dilation in the common bile duct which measured up to 8 mm. A hypoechoic lesion suggestive of a cyst was identified in the pancreatic head. The lesion measured 14 mm by 11 mm in maximal cross-sectional diameter. There were a few compartments thinly septated. The outer wall of the lesion was not seen. There was no associated mass. Pancreatic parenchymal abnormalities were noted in the entire pancreas. These consisted of hyperechoic foci and lobularity. There was no sign of significant endosonographic abnormality in the main pancreatic duct. The pancreatic duct measured up to 3 mm in diameter in the head and neck and less than 2 mm throughout the pancreatic body. The pancreas was well visualized, the pancreatic duct was well visualized from ampulla to tail, the pancreatic duct was regular in contour. The hat cutter film was normal. Aortic stent was seen. The esophagus was successfully intubated under direct vision. The scope was advanced from the mouth to the duodenum. The pharynx, larynx and associated structures, as well as the upper GI tract (more content not included)... Normal [facility] Electrocardiogram 12 Leadon 10-05-2022 Electrocardiogram 12 Lead Ventricular Rate 73 Atrial Rate 73 P-R Interval 150 QRS Duration 94 Q-T Interval 416 QTC Calculation(Bazett) 458 P [place] 72 R [place] -11 T [place] 4 QRS Count 12 Q Onset 223 P Onset 148 P Offset 209 T Offset 431 QTC Fredericia 444 Diagnosis Class Abnormal Diagnosis Sinus rhythm with premature atrial complexes Anteroseptal infarct , age undetermined Abnormal ECG No previous ECGs available Confirmed by Franky Blackman ([id number]) on 10/06/2022 9:37:04 PM Normal [facility] GLUCOSE-POCTon 10-05-2022 Glucose [Mass/Vol] 131 mg/dL High 74 - 99 [facility] Comment on above: Performed By: #### G AIXA ####[address] [address] Glucose [Mass/Vol] 136 mg/dL High 74 - 99 [facility] Comment on above: Performed By: #### G AIXA ####[address] [address] INFLUENZA A/B, COVID 2019 PC R,SYMPTOMATICon 10-05-2022 INFLUENZA A, PCR Not detected Normal Not Detected [facility] Comment on above: Result Comment: Resp iratory virus testing is performed routinely by PCR for Influenza A/B and RSV. Not Detected results do not preclude Influenza A/B or RSV infections since the adequacy of sample collection or low viral burden may impact the clinical sensitivity of this test method. Performed By: #### C OINP ####[address] [address] INFLUENZA B, PCR Not detected Normal Not Detected [facility] Comment on above: Result Comment: Resp iratory virus testing is performed routinely by PCR for Influenza A/B and RSV. Not Detected results do not preclude Influenza A/B or RSV infections since the adequacy of sample collection or low viral burden may impact the clinical sensitivity of this test method. Performed By: #### C OINP ####[place] [address] SARS-CoV-2 (COVID-19) RNA GLORIA+probe Ql (Unsp spec) Not detected Normal Not Detected [facility] Comment on above: Result Comment: . This test has received [facility] Emergency Use Authorization (EUA) and has been verified by [facility]. This test is only authorized for the duration of time that circumstances exist to justify the authorization of the emergency use of in vitro diagnostic tests for the detection of SARS-CoV-2 virus and/or diagnosis of COVID-19 infection under section 564(b)(1) of the Act, 21 U.S.C. 360bbb-3(b)(1), unless the authorization is terminated or revoked sooner. [facility] is certified under CLIA-88 as qualified to perform high complexity testing. Testing is performed in the [facility] laboratory located at [address] [place] [address]. SARS-CoV-2/Flu/RSV Multiplex Test: Fact sheet for providers: https://www.fda.gov/media/765422/download Fact sheet for patients: https://www.fda.gov/media/324289/download Performed By: #### C OINP ####[place] [address] Lab Specimen Source Nasal, Nasopharyngeal Normal [facility] Comment on above: Performed By: #### C OINP ####[place] [address] INFLUENZA A/B, COVID 2019 PCR,SYMPTOMATIC Not detected See Below Nash will Work Phone: Comment on above: Reference Range: Not Detected.This test has received FDA Emergency Use Authorization (EUA) and has been verified by [facility]. This test is only authorized for the duration of time that circumstances exist to justify the authorization of the emergency use of in vitro diagnostic tests for the detection of SARS-CoV-2 virus and/or diagnosis of COVID-19 infection under section 564(b)(1) of the Act, 21 U.S.C. 360bbb-3(b)(1), unless the authorization is terminated or revoked sooner. [facility] is certified under CLIA-88 as qualified to perform high complexity testing. Testing is performed in the [facility] laboratory located at [address] [place] [address].SARS-CoV-2/Flu/RSV Multiplex Test: Fact sheet for providers: https://www.fda.gov/media/465538/downloadFact sheet for patients: https://www.fda.gov/media/898339/download Reference Range: Not Detected Respiratory virus testing is performed routinely by PCR for Influenza A/B and RSV. Not Detected results do not preclude Influenza A/B or RSV infections since the adequacy of sample collection or low viral burden may impact the clinical sensitivity of this test method. SOURCE: Nasal, Nasop haryngealReference Range: Not Detected Respiratory virus testing is performed routinely by PCR for Influenza A/B and RSV. Not Detected results do not preclude Influenza A/B or RSV infections since the adequacy of sample collection or low viral burden may impact the clinical sensitivity of this test method. LACTATEon 10-05-2022 Lactate [Moles/Vol] 0.8 mmol/L Normal 0.4 - 2.0 [facility] Comment on above: Result Comment: Gypsy puncture immediately after or during the administration of Metamizole may lead to falsely low results. Testing should be performed immediately prior to Metamizole dosing. Performed By: #### L ACT ####[facility] [place] [address] Lactate [Moles/Vol] 2.5 mmol/L High 0.4 - 2.0 [facility] Comment on above: Result Comment: Gypsy puncture immediately after or during the administration of Metamizole may lead to falsely low results. Testing should be performed immediately prior to Metamizole dosing. Performed By: #### L ACT ####[place] [address] LIPASEon 10-05-2022 Lipase [Catalytic activity/Vol] 5 U/L Low 9 - 82 [facility] Comment on above: Result Comment: Gypsy puncture immediately after or during the administration of Metamizole may lead to falsely low results. Testing should be performed immediately prior to Metamizole dosing. N-feonph-o-benzoquinone imine (metabolite of Acetaminophen) will generate erroneously low results in samples for patients that have taken toxic doses of acetaminophen. Performed By: #### C BC #### [facility] [address] [place] [address] Laboratory - Blood bankon ABO group Nom (Bld) O -[facility] Work Phone: Blood group antibody screen Ql Negative [facility]ico[facility] Work Phone: Rh immune globulin screen (Bld) [Interp] Negative -[facility] Work Phone: Laboratory - Chemistry and C hemistry - challengeon 10-05-2022 Glucose [Mass/Vol] 108 mg/dL above high threshold 74 - 99 [facility]icolette Work Phone: Glucose [Mass/Vol] 131 mg/dL above high threshold 74 - 99 [facility] Work Phone: Glucose [Mass/Vol] 136 mg/dL above high threshold 74 - 99 -[facility] Work Phone: Albumin BCP dye [Mass/Vol] 3.7 g/dL 3.4 - 5.0 [facility] Work Phone: ALP [Catalytic activity/Vol] 337 U/L above high threshold 33 - 136 [facility] Work Phone: ALT With P-5'-P [Catalytic activity/Vol] 65 U/L above high threshold 10 - 52 [facility] Work Phone: Comment on above: Patients treated wit h Sulfasalazine may generate falsely decreased results for ALT. Anion gap [Moles/Vol] 15 mmol/L 10 - 20 [facility]- [facility] Work Phone: AST With P-5'-P [Catalytic activity/Vol] 116 U/L above high threshold 9 - 39 [facility] Work Phone: Bilirubin [Mass/Vol] 2.1 mg/dL above high threshold 0.0 - 1.2 [facility] Work Phone: Calcium [Mass/Vol] 9.9 mg/dL 8.6 - 10.3 [facility] Work Phone: Chloride [Moles/Vol] 104 mmol/L 98 - 107 [facility] Work Phone: CO2 [Moles/Vol] 23 mmol/L 21 - 32 [facility] Work Phone: Creatinine [Mass/Vol] 1.27 mg/dL See Below [facility] Work Phone: Comment on above: Reference Range: 0.5 0 - 1.30 Glucose [Mass/Vol] 168 mg/dL above high threshold 74 - 99 [facility] Work Phone: Potassium [Moles/Vol] 4.2 mmol/L 3.5 - 5.3 [facility] Work Phone: Protein [Mass/Vol] 7.2 g/dL 6.4 - 8.2 [facility] Work Phone: Sodium [Moles/Vol] 138 mmol/L 136 - 145 [facility] Work Phone: Urea nitrogen [Mass/Vol] 15 mg/dL 6 - 23 [facility] Work Phone: Laboratory - Coagulationon 0 10-05-2022 INR Coag (PPP) [Relative time] 1.2 {INR} above high threshold 0.9 - 1.1 [facility] nicolette Work Phone: PT Coag (PPP) [Time] 14.1 s above high threshold 9.8 - 13.4 [facility] nicolette Work Phone: Lactate, Levelon 10-05-2022 Lactate [Moles/Vol] 0.8 mmol/L 0.4 - 2.0 [facility] nicolette Work Phone: Comment on above: Venipuncture immedia tely after or during the administration of Metamizole may lead to falsely low results. Testing should be performed immediately prior to Metamizole dosing. Lactate [Moles/Vol] 2.5 mmol/L above high threshold 0.4 - 2.0 [facility] Work Phone: Comment on above: Venipuncture immedia tely after or during the administration of Metamizole may lead to falsely low results. Testing should be performed immediately prior to Metamizole dosing. Lipase, Serumon 10-05-2022 Lipase [Catalytic activity/Vol] 5 U/L below low threshold 9 - 82 [facility] Work Phone: Comment on above: Venipuncture immedia tely after or during the administration of Metamizole may lead to falsely low results. Testing should be performed immediately prior to Metamizole dosing. U-vhvnsa-x-benzoquinone imine (metabolite of Acetaminophen) will generate erroneously low results in samples for patients that have taken toxic doses of acetaminophen. MAGNESIUMon 10-05-2022 Magnesium [Mass/Vol] 1.44 mg/dL Low 1.60 - 2.40 [facility] Comment on above: Performed By: #### M G #### [facility] [address] [facility] [place] [address] Magnesium, Serumon Magnesium [Mass/Vol] 1.44 mg/dL below low threshold See Below [facility]lette Work Phone: Comment on above: Reference Range: 1.6 0 - 2.40 No Panel Informationon 10-05 [email or web address]?={ [email or web address]} [facility] Work Phone: [facility] Work Phone: [email or web address] ?RetrieveTestByDateTime?Pa grbseQQ=[id number]&Date=&Time=11%3a56%3a30% 3a00&TestType=ECG&Site=12& OutputType=PDF&Ext=PDF [facility] Work Phone: Sinus rhythm with premature atrial complexes [facility] Work Phone: Abnormal [facility] Work Phone: [phone] [facility] Work Phone: [phone] [facility] Work Phone: [phone] [facility] Work Phone: [phone] [facility] Work Phone: [phone] [facility] Work Phone: 12 [phone] [facility] Work Phone: [phone] 1 [facility] Work Phone: -11 1 [facility] Work Phone: 72 [phone] [facility] Work Phone: [phone] [facility] Work Phone: [phone] [facility] Work Phone: [phone] [facility] Work Phone: [phone] [facility] Work Phone: [phone] [facility] Work Phone: Normal [facility] Work Phone: 60 {mL/min/1.73m2} >90 [facility] Work Phone: Comment on above: CALCULATIONS OF BEV MATED GFR ARE PERFORMED USING THE 2020 CKD-EPI STUDY REFIT EQUATION WITHOUT THE RACE VARIABLE FOR THE IDMS-TRACEABLE CREATININE METHODS.https://jasn.asnjournals.org/content///A SN.[email or web address] Order Reconciliationon 10-05 Order Reconciliation Page 1 Admission Reconciliation Document Reconciliation Type: Admission requested on behalf of Nilam Nielsen (Advanced Practice Nurse-Admit) done by Nilam Nielsen ([employer] [facility]) Admission - Reconciliation: 05-Oct-2022 14:29 by: Nilam Nielsen ([employer]) Home MedicationsEnteredLast Dose TakenReconciled with current Order Reconciliation Comment/ Additional Information Aspir 81 oral delayed release tablet 1 tab(s) orally once a [id number] UNKNOWN UNKNOWN Aspirin Enteric Coated Enteric Coated Tablet (ECOTRIN)DOSE = 81 mg Oral DailyAspir 81 oral delayed release tablet continued as the inpatient order Aspirin Enteric Coated esomeprazole 40 mg oral delayed release capsule 1 cap(s) orally 2 times a day [id number] UNKNOWN Pantoprazole Injectable (PROTONIX)DOSE = 40 mg IntraVenous Push Every 24 Hoursesomeprazole 40 mg oral delayed release capsule reconciled with the existing inpatient order Pantoprazole Injectable ferrous sulfate 325 mg (65 mg elemental iron) oral tablet 1 tab(s) orally once a [id number] UNKNOWN Ferrous Sulfate Tablet (FEOSOL)DOSE = 325 mg Oral Dailyferrous sulfate 325 mg (65 mg elemental iron) oral tablet continued as the inpatient order Ferrous Sulfate losartan 50 mg oral tablet 1 tab(s) orally once a [id number] UNKNOWN Reviewed and Held metFORMIN 500 mg oral tablet, extended release 1 tab(s) orally 2 times a day UNKNOWN Reviewed and Held metoprolol succinate 50 mg oral tablet, extended release 1 tab(s) orally once a [id number] UNKNOWN Reviewed and Held MiraLax oral powder for reconstitution 17 gram(s) orally once a [id number] UNKNOWN UNKNOWN Reviewed and Held [place] 5 mg-325 mg oral tablet 1 tab(s) orally every 6 hours, As Needed - for [id number] UNKNOWN Reviewed and Held PARoxetine 20 mg oral tablet 1 tab(s) orally once a day (at bedtime) UNKNOWN PARoxetine - PEDS Tablet (PAXIL)DOSE = 20 mg Oral Every NightCa mg/DOSE x 1 = 20 mg/Dose (Daily Total is 20 mg) PARoxetine 20 mg oral tablet continued as the inpatient order PARoxetine - PEDS rosuvastatin 40 mg oral tablet 0.5 tab(s) orally once a day (at bedtime) UNKNOWN Atorvastatin Tablet (LIPITOR)DOSE = 20 mg Oral At Bedtimerosuvastatin 40 mg oral tablet continued as the inpatient order Atorvastatin tolterodine 2 mg oral capsule, extended release 1 cap(s) orally Wednesday, Wednesday, and UNKNOWN Reviewed and Held Additional Current Orders Dextrose 50% in Water Injectable DOSE = 25 gram(s) IntraVenous Push Every 15 Minutes, PRN Blood Glucose 70 mg/dL or LESS & HAS IV accessClinician Notes: IF patient HAS a secure IV access & is Unconscious, Conscious, NPO or Unable to Eat or Drink. Repeat until BG reaches 100 mg/dL or greater. Push 2-3 mL/minute. Discontinue once BG reaches 100 mg/dL or greater. Glucagon Injectable DOSE = 1 mg IntraMuscular Every 15 Minutes, PRN Blood Glucose 70 mg/dL or LESS & NO IV accessClinician Notes: IF patient DOES NOT have secure IV access & is Unconscious, Conscious, NPO or Unable to Eat or Drink. Repeat until BG reaches 100 mg/dL or greater. Discontinue once BG reaches 100 mg/dL or greater. Heparin SubCutaneous DOSE = 5,000 unit(s) SubCutaneous Every 8 Hours Insulin Lispro Mild Corrective Scale Give SubCutaneous Every 4 Hours Hypoglycemia Protocol Call LIP unit(s) if Blood Glucose is between 0 - 70 0 unit(s) if Blood Glucose is between 71 - 150 2 unit(s) if Blood Glucose is between 151 - 200 4 unit(s) if Blood Glucose is between 201 - 250 6 unit(s) if Blood Glucose is between 251 - 300 8 unit(s) if Blood Glucose is between 301 - 350 10 unit(s) if Blood Glucose is between 351 - 400 Notify Provider unit(s) if Blood Glucose is greater than 400 Lactated Ringers Infusion IV Bag Volume = 1,000 mL Run at: 125 mL/hr IntraVenous Magnesium Sulfate 2 gram/Sterile Water 50 mL Premix Soln Every 6 Hours, PRN Magnesium Level 1.7-1.9 mg/dLRecommended Infusion Time: 2 hour(s)Stop After 365 Days Magnesium Sulfate 4 gram/Sterile Water 100 mL Premix Soln Every 6 Hours, PRN Magnesium Level 1.4-1.6 mg/dLRecommended Infusion Time: 4 hour(s)Stop After 365 Days Piperacillin - Tazobactam 4.5 gram/Iso-osmotic 100 mL Premix IVPB (ZOSYN)Every 6 HoursRecommended Infusion Time: 30 minute(s) Potassium Chloride 40 mEq/Sterile Water 100 mL Premix IVPB Every 6 Hours via Central Line, PRN Potassium Level 3.6 - 3.7 mmol/L and unable to takRecommended Infusion Time: 4 hour(s)Stop After 365 Days Potassium Chloride Extended Release Tablet, Extended ReleaseDOSE = 20 mEq Oral Every 6 Hours, PRN Potassium Level 3.8 - 3.9 mmol/L Potassium Chloride Extended Release Tablet, Extended ReleaseDOSE = 40 mEq Oral Every 6 Hours, PRN Potassium Level 3.6 - 3.7 mmol/L Normal [facility] PT/INRon 10-05-2022 PT Coag (PPP) [Time] 14.1 s High 9.8 - 13.4 [facility] Comment on above: Performed By: #### C BC #### [facility] [address] [place] [address] PT, INR 1.2 High 0.9 - 1.1 [facility] Comment on above: Performed By: #### C #### [facility] [address] [place] [address] Patient Profile - Adult v2on 10-05-2022 Patient Profile - Adult v2 Profile: Initial Info: How to be AddressedTommy Spoken Language PreferredEnglish Stated Reason for AdmissionBelly pain Wants Family/Rep Notified of Admissionyes, primary contact Notify PCPnotify PCP Informed of Patient Visiting Rightsyes Limitations on Visitors/[place] Status[place] Patient Belongingsnone Medications Brought to Hospitalno General Health: Blood Avoidance/Restrictionsnone (1) Weight in kg58 kilogram(s)(2) Weight in gds622.8 pound(s) Weight Methodactual (measured) Scale Typebed Height in cm167.4 centimeter(s)(2) Height in feet5 feet Height in inches5.94 inch(es) Height Methodstated BMI (kg/m2)20.697 square meter RSP Based Care: How would you like to participate in your ondina/a What is the number one concern for you during this hospitalizationn/a What is the most important thing we can do to support you during this hospitalizationn/a Is there anything we need to know to best care for mode/a Substance: Smoking Statusmoderate user (uses 11-30 cig/day, OR 0.5-1.5 ppd, OR 2-3 cans/pouches loose leaf tobacco per week, OR 0.5-1.5 vape pods per day) (3) Tobacco Cessation Education (provide if tobacco use within the last 12 mos)yes Alcohol Usedenies(3) Drug Usedenies (3) Health Mgmt: Symptoms/Conditions Managed at Homegastrointestinal Gastrointestinal Symptoms/Conditionsabdomin al pain Gastrointestinal Managementmanaged Barriers to Managing Healthage; literacy Relationship/Environ: Significant Exposurenone Resource/Environmental Concernsnone Primary Source of Support/Comfortchild(dez) Lives Withspouse Living Arrangementsmobile home Services 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 Data Referenced From Patient Profile - Procedure 05-Oct-2022 15:37 2. Data Referenced From 1. Vital Signs 05-Oct-2022 15:37 3. Data Referenced From History and Physical - Critical Care 05-Oct-2022 14:51 Normal [facility] Provider Note - ED v3on 03-2 Provider Note - ED v3 Provider Note: Chart Review: ED NOTES ED NOTES: HPI: Balbina Irving is a 71-year-old male history of AAA status post endovascular repair, known left iliac artery aneurysm, smoking, DM2, HTN, HLD presenting with acute on chronic abdominal pain. It has been ongoing for months. He has had extensive work-up at an outside facility. He was initially told that he had a pancreatic mass on CT, and reportedly an MRI failed to redemonstrate this. He has had multiple endoscopies without answer. He was scheduled for a pancreatic biopsy today but his pain acutely worsens so they were told to go to the ER instead. Pain is RUQ/epigastric, 7/10, crampy, nonradiating, without consistent exacerbating or alleviating factors. Patient is normally hypertensive with numerous reported instances of systolics above 200. However, he is hypotensive at 80/50 at presentation. He is afebrile and denies nausea, vomiting, diarrhea, chest pain, shortness of breath. Review of Systems: CONSTITUTIONAL: Denies fever, sweats, chills. NEURO: Denies difficulty walking, numbness, weakness, tingling, headache. HEENT: Denies sore throat, rhinorrhea, epistaxis, changes in vision. CARDIO: Denies chest pain, palpitations. PULM: Denies shortness of breath, cough. GI: Reports abdominal pain, nausea, vomiting, diarrhea, constipation, melena, hematochezia. : Denies painful urination, frequency, hematuria. MSK: Denies recent trauma. SKIN: Denies rash, lesions. ENDOCRINE: Denies unexpected weight-loss. HEME: Denies bleeding disorder. -------- Past medical history: AAA status post endovascular repair, known left iliac artery aneurysm, smoking, DM2, HTN, HLD Past surgical history: Reviewed Social history: 1 PPD smoker. Denies alcohol use, recreational drug usage Family history: Reviewed and noncontributory to today's presentation unless otherwise noted. ALLERGIES: As documented in EMR were reviewed and discussed with patient. -------- Physical exam: VS: As documented in the triage note from today's date and EMR flowsheet were reviewed. Gen: Well developed. No acute distress. Seated in bed. Skin: Warm. Dry. Intact. No rashes or lesions. Eyes: Pupils equally round and reactive to light. Clear sclera. EOMI. HENT: Atraumatic appearance. Mucosal membranes moist. CV: Regular rate and rhythm. S1, S2. No pedal edema. Warm extremities. Resp: Nonlabored breathing Clear to auscultation bilaterally. GI: Soft, nondistended, TTP in the RUQ and epigastrium with voluntary guarding. MSK: Symmetric muscle bulk. No joint swelling in the extremities. Neuro: Alert. Speech fluent. Moving all extremities. No focal deficits Psych: Appropriate. Kempt. -------- Hospital Course / Medical Decision Making: Balbina Irving is a 71-year-old male history of AAA status post endovascular repair, known left iliac artery aneurysm, smoking, DM2, HTN, HLD presenting with acute on chronic abdominal pain. Reviewed significant amount of outside hospital labs and imaging. Discussed with family at length as patient is very hard of hearing. Concern for possible rupture of known AAA given hypotension and abdominal pain. CTA of the chest abdomen pelvis was ordered. In the interim, abdominal labs were sent. Hematology remarkable for a leukocytosis of 23.4. Concerning for sepsis. Broad spectrum abx were ordered. Chemistry remarkable for a blood glucose of 168, hypomagnesemia of 1.44, transaminitis, and bilirubinemia of 2.1. Lactate was elevated at 2.5. CTA returned positive for acute cholecystitis. Patient with sepsis bordering on septic shock. Troponin X.3 elevated at 43, 33, 36. Most likely demand ischemia secondary to his acute intra-abdominal process. EKG with normal sinus rhythm. Patient was given Dilaudid with improvement in pain. Given elevated transaminases, gastroenterology was consulted with intentions to scope for possible cholangitis. They did not provide additional recommendations. Surgery was also consulted who stated that they would coordinate with interventional radiology for a cholecystostomy tube. Patient in total received 3 L of fluid for his hypotension. ON tissue re-evaluation patient has better perfusion, lactic down trending. Patient's blood pressure would transiently improve, only to inevitably decrease again, for this reason, he was admitted to the ICU for further management. Patient was going directly from ER to endoscopy and our concern was that patient would decompensate further. Discussed the case with the cargo trimmer who accepted the patient for further evaluation and management post endoscopy. ECG revealed sinus rhythm with PACs at a rate of 73 beats per minute with MT interval 150, QRS of 94, QTc of458. No appreciable ST elevations or depressions. I reviewe (more content not included)... Normal [facility] Radiologyon 10-05-2022 Fluoroscopy duration Please click on the link to view the study images Normal [facility] Work Phone: Risk Screen - Adult Emergenc yon 10-05-2022 Risk Screen - Adult Emergency Preferred Language: Preferred Language: Preferred Language for Discussing Health Care (patient/designee)Ukrainian Patient Preferred Pharmacy: Patient Preferred Pharmacy Statement: I have reviewed and updated the patient's preferred pharmacy selection for today's visit. Advanced Directives: Advance Directive/DNRno Family Violence Adult: Abuse Screen: Are you or have you been threatened or abused physically, emotionally, or sexually by anyoneno Learning Assessment (Patient): Learning Assessment (Patient): Patient is Able to be Assessed for Learningyes Factors Influencing Readiness to Learninterest in learning Factors that Impact Ability to Learnnone Devices/Methods Used to Communicatenone Learning Preferencesverbal instruction Cultural Considerationsnone Developmental Considerationsnone Protestant Considerationsnone Learning Assessment (Other Learner): Learning Assessment (Other Learner): Other learner availableno Pressure Injury/TB/Substance: Pressure Injury: Pressure Injury Present on Admissionno Do you have a coughno Smoking Statusmoderate user (uses 11-30 cig/day, OR 0.5-1.5 ppd, OR 2-3 cans/pouches loose leaf tobacco per week, OR 0.5-1.5 vape pods per day) Tobacco Cessation Education (provide if tobacco use within the last 12 mos) patient declined Alcohol Usedenies Drug Usedenies Admission Risk Screen: Significant IndicatorsComplete CAGE: CAGE: Is this an injured patient at a Trauma Center (TOM/Avani/Eleno/Nandini/Pia Caruso/Juan Carlos): no Electronic Signatures: Delores Arana (MATT) (Signed 05-Oct-2022 10:05) Authored: Preferred Language, Patient Preferred Pharmacy, Advanced Directives, Family Violence Adult, Learning Assessment (Patient), Learning Assessment (Other Learner), Pressure Injury/TB/Substance, Pressure Injury, CAGE Last Updated: 05-Oct-2022 10:05 by Delores Arana (MATT) Normal [facility] TROPONIN I, HIGH SENSITIVITY on 10-05-2022 TROPONIN I, HIGH SENSITIVITY 36 ng/L High 0 - 20 [facility] Comment on above: Result Comment: . Less than 99th percentile of normal range cutoff- Female and children under 18 years old <14 ng/L; Male <21 ng/L: Negative Repeat testing should be performed if clinically indicated. . Female and children under 18 years old 14-50 ng/L; Male 21-50 ng/L: Consistent with possible cardiac damage and possible increased clinical risk. Serial measurements may help to assess extent of myocardial damage. . >50 ng/L: Consistent with cardiac damage, increased clinical risk and myocardial infarction. Serial measurements may help assess extent of myocardial damage. . NOTE: Children less than 1 year old may have higher baseline troponin levels and results should be interpreted in conjunction with the overall clinical context. . NOTE: Troponin I testing is performed using a different testing methodology at [facility] than at other [facility]. Direct result comparisons should only be made within the same method. Performed By: #### [facility] #### [facility] [address] [place] [address] TROPONIN I, HIGH SENSITIVITY 33 ng/L High 0 - 20 [facility] Comment on above: Result Comment: . Less than 99th percentile of normal range cutoff- Female and children under 18 years old <14 ng/L; Male <21 ng/L: Negative Repeat testing should be performed if clinically indicated. . Female and children under 18 years old 14-50 ng/L; Male 21-50 ng/L: Consistent with possible cardiac damage and possible increased clinical risk. Serial measurements may help to assess extent of myocardial damage. . >50 ng/L: Consistent with cardiac damage, increased clinical risk and myocardial infarction. Serial measurements may help assess extent of myocardial damage. . NOTE: Children less than 1 year old may have higher baseline troponin levels and results should be interpreted in conjunction with the overall clinical context. . NOTE: Troponin I testing is performed using a different testing methodology at [facility] than at other [facility]. Direct result comparisons should only be made within the same method. Performed By: #### [facility] ####[facility] [place] [address] TROPONIN I, HIGH SENSITIVITY 43 ng/L High 0 - 20 [facility] Comment on above: Result Comment: . Less than 99th percentile of normal range cutoff- Female and children under 18 years old <14 ng/L; Male <21 ng/L: Negative Repeat testing should be performed if clinically indicated. . Female and children under 18 years old 14-50 ng/L; Male 21-50 ng/L: Consistent with possible cardiac damage and possible increased clinical risk. Serial measurements may help to assess extent of myocardial damage. . >50 ng/L: Consistent with cardiac damage, increased clinical risk and myocardial infarction. Serial measurements may help assess extent of myocardial damage. . NOTE: Children less than 1 year old may have higher baseline troponin levels and results should be interpreted in conjunction with the overall clinical context. . NOTE: Troponin I testing is performed using a different testing methodology at [facility] than at other [facility]. Direct result comparisons should only be made within the same method. Performed By: #### [facility] #### [facility] [address] [place] [address] Tropinin I.cardiac panel High sensitivity method 36 ng/L above high threshold 0 - 20 [facility] Work Phone: Comment on above: .Less than 99th perc entile of normal range cutoff-Female and children under 18 years old <14 ng/L; Male <21 ng/L: NegativeRepeat testing should be performed if clinically indicated. .Female and children under 18 years old 14-50 ng/L; Male 21-50 ng/L:Consistent with possible cardiac damage and possible increased clinical risk. Serial measurements may help to assess extent of myocardial damage. .>50 ng/L: Consistent with cardiac damage, increased clinical risk andmyocardial infarction. Serial measurements may help assess extent of myocardial damage. . NOTE: Children less than 1 year old may have higher baseline troponin levels and results should be interpreted in conjunction with the overall clinical context. .NOTE: Troponin I testing is performed using a different testing methodology at [facility] than at other [facility]. Direct result comparisons should only be made within the same method. Tropinin I.cardiac panel High sensitivity method 33 ng/L above high threshold 0 - 20 [facility] Work Phone: Comment on above: .Less than 99th perc entile of normal range cutoff-Female and children under 18 years old <14 ng/L; Male <21 ng/L: NegativeRepeat testing should be performed if clinically indicated. .Female and children under 18 years old 14-50 ng/L; Male 21-50 ng/L:Consistent with possible cardiac damage and possible increased clinical risk. Serial measurements may help to assess extent of myocardial damage. .>50 ng/L: Consistent with cardiac damage, increased clinical risk andmyocardial infarction. Serial measurements may help assess extent of myocardial damage. . NOTE: Children less than 1 year old may have higher baseline troponin levels and results should be interpreted in conjunction with the overall clinical context. .NOTE: Troponin I testing is performed using a different testing methodology at [facility] than at other [facility]. Direct result comparisons should only be made within the same method. Tropinin I.cardiac panel High sensitivity method 43 ng/L above high threshold 0 - 20 Nash tAkinson-Camila will Work Phone: Comment on above: .Less than 99th perc entile of normal range cutoff-Female and children under 18 years old <14 ng/L; Male <21 ng/L: NegativeRepeat testing should be performed if clinically indicated. .Female and children under 18 years old 14-50 ng/L; Male 21-50 ng/L:Consistent with possible cardiac damage and possible increased clinical risk. Serial measurements may help to assess extent of myocardial damage. .>50 ng/L: Consistent with cardiac damage, increased clinical risk andmyocardial infarction. Serial measurements may help assess extent of myocardial damage. . NOTE: Children less than 1 year old may have higher baseline troponin levels and results should be interpreted in conjunction with the overall clinical context. .NOTE: Troponin I testing is performed using a different testing methodology at [facility] than at [facility]. Direct result comparisons should only be made within the same method. TYPE + SCREENon 10-05-2022 ABO TYPE O Normal [facility] Comment on above: Performed By: #### C BC #### [place] [id number] RH TYPE Negative Normal [facility] Comment on above: Performed By: #### C BC #### [address] [address] Triage - EDon 10-05-2022 Triage - ED Quick Triage: The patient and/or guardian verbally acknowledges placement for services into the following (when Urgent Care Service hours are operating):emergency department Chart Review: PRIMARY ASSESSMENT GOPAL IRVING's primary assessment is Within Defined Limits. The airway is open and patent. Breathing spontaneous and unlabored with clear breath sounds bilaterally. Circulation is normal with good peripheral pulses. Skin is warm and dry and color is normal for race. ARRIVAL INFORMATION Mode of Arrival: private vehicle CHIEF COMPLAINT GOPAL IRVING is a Male patient with a chief complaint of abdominal pain (sent from endo. supposed to have a scope today but having lots of pain.). Onset of the Complaint: 05-Oct-2022 Triage Date/Time: 05-Oct-2022 10:01 REDDY: 2 Vital Signs: Temperature: 98.4F ( 36.9C) taken skin probe Blood Pressure: 98/64 Mean: Heart Rate: 79 Respiratory Rate: 16 Pulse Oximetry: 96% on room air, no respiratory support. Height: 5 feet 6.00 inches. 167.6 CM Weight: 127.8 pounds. Calculated 58.0 kg. (stated) Calculated BMI (kg/m2): 20.648 Calculated BSA (m2) 1.64 Faraz Coma Scale: Best Eye Response: (E4) spontaneous Best Motor Response: (M6) obeys commands Best Verbal Response: (V5) oriented [place] Score: 15 Cough lasting greater than 3 weeks: no Patient immunocompromised related to: N/A Allergies: yes Patient has homicidal thoughts: no Risk Screens Suicide Risk Screen In the Past Month: Have you wished you were or wished you could go to sleep and not wake up no In the Past Month: Have you had any actual thoughts of killing yourself no In Your Lifetime: Have you ever done anything, started to do anything, or prepared to do anything to end your life no Carney Fall Scale Screening Has the patient fallen before (or is the patient in the ED as a result of a fall) has not had a fall Does the patient have an impaired gait does not have impaired gait Is the patient cognitively impaired not cognitively impaired Interventions: n[place]ika Fall Interventions: LOW INTERVENTIONS: *patient oriented to surroundings and call system, * patient/family falls education completed and documented, *patients fall status communicated during bedside handoff, *whiteboard updated, *mode of toileting discussed with patient, *bed in low position with brakes locked, *call light in reach, * non-skid footwear TRAVEL HISTORY Travel History Coronavirus Screening: no exposure or symptoms Travel Exposure History: NO travel to International locations in the past 30 days PAIN Pain Scale Used: PHILIPPE Past Medical History: Past Medical History Reviewedno Electronic Signatures: Delores Arana (MATT) (Signed 05-Oct-2022 10:04) Authored: Quick Triage, Risk Screens, Pain, ABCD, Travel History, Chart Review, Scores, Past Medical History Last Updated: 05-Oct-2022 10:04 by Delores Arana (MATT) Normal [facility] URINALYSIS WITH CULTURE IF I NDICATEDon 10-05-2022 Appearance (U) Canceled Normal [facility] Comment on above: Order Comment: TEST URINALYSIS WITH CULTURE IF INDICATED WAS CANCELLED, 10/05/2022 16:48duplicate order. Performed By: #### U ARFX ####[address] [address] ASCORBIC ACID Canceled Normal [facility] Comment on above: Order Comment: TEST URINALYSIS WITH CULTURE IF INDICATED WAS CANCELLED, 10/05/2022 16:48duplicate order. Result Comment: Conc entrations > = 20 mg/dL of ascorbic acid can be expected to cause strong interference in the reactions testing for glucose, nitrite and blood. It is recommended to discontinue Vitamin C administration and retest in 10 hours. Performed By: #### U ARFX ####[address] [address] Bilirubin Ql (U) Canceled Normal [facility] Comment on above: Order Comment: TEST URINALYSIS WITH CULTURE IF INDICATED WAS CANCELLED, 10/05/2022 16:48duplicate order. Performed By: #### U ARFX ####[address] [address] Color (U) Canceled Normal [facility] Comment on above: Order Comment: TEST URINALYSIS WITH CULTURE IF INDICATED WAS CANCELLED, 10/05/2022 16:48duplicate order. Performed By: #### U ARFX ####[address] [address] Glucose Ql (U) Canceled Normal [facility] Comment on above: Order Comment: TEST URINALYSIS WITH CULTURE IF INDICATED WAS CANCELLED, 10/05/2022 16:48duplicate order. Performed By: #### U ARFX ####[address] [address] Hemoglobin Ql (U) Canceled Normal [facility] Comment on above: Order Comment: TEST URINALYSIS WITH CULTURE IF INDICATED WAS CANCELLED, 10/05/2022 16:48duplicate order. Performed By: #### U ARFX ####[address] [place] [address] Ketones Ql (U) Canceled Normal [facility] Comment on above: Order Comment: TEST URINALYSIS WITH CULTURE IF INDICATED WAS CANCELLED, 10/05/2022 16:48duplicate order. Performed By: #### U ARFX ####[address] [place] [address] Leukocyte esterase Test strip Ql (U) Canceled Normal [facility] Comment on above: Order Comment: TEST URINALYSIS WITH CULTURE IF INDICATED WAS CANCELLED, 10/05/2022 16:48duplicate order. Performed By: #### U ARFX ####[address] [address] Nitrite Ql (U) Canceled [facility] Comment on above: Order Comment: TEST URINALYSIS WITH CULTURE IF INDICATED WAS CANCELLED, 10/05/2022 16:48duplicate order. Performed By: #### U ARFX ####[address] [address] pH Canceled [facility] Comment on above: Order Comment: TEST URINALYSIS WITH CULTURE IF INDICATED WAS CANCELLED, 10/05/2022 16:48duplicate order. Performed By: #### U ARFX ####[address] [address] Protein Ql (U) Canceled [facility] Comment on above: Order Comment: TEST URINALYSIS WITH CULTURE IF INDICATED WAS CANCELLED, 10/05/2022 16:48duplicate order. Performed By: #### U ARFX ####[address] [place] [address] Specific gravity (U) [Rel density] Canceled Normal [facility] Comment on above: Order Comment: TEST URINALYSIS WITH CULTURE IF INDICATED WAS CANCELLED, 10/05/2022 16:48duplicate order. Performed By: #### U ARFX ####[address] [place] [address] UROBILINOGEN Canceled [facility] Comment on above: Order Comment: TEST URINALYSIS WITH CULTURE IF INDICATED WAS CANCELLED, 10/05/2022 16:48duplicate order. Performed By: #### U ARFX ####[facility] [place] [address] Alanine aminotransferase [En zymatic activity/volume] in Serum or PlasmaOrdered By: Dejuan Wolf on 10-03-2022 ALT [Catalytic activity/Vol] 43 U/L 7-52 [facility] Albumin [Mass/volume] in Ser um or Plasma by Bromocresol green (BCG) dye binding methoOrdered By: Dejuan Wolf on 10-03-2022 Albumin BCG dye [Mass/Vol] 3.9 g/dL 3.5-5.7 [facility] Alkaline phosphatase [Enzyma tic activity/volume] in Serum or PlasmaOrdered By: Dejuan Wolf on 10-03-2022 ALP [Catalytic activity/Vol] 169 U/L 34-104 [facility] Aspartate aminotransferase [ Enzymatic activity/volume] in Serum or PlasmaOrdered By: Dejuan Wolf on 10-03-2022 AST [Catalytic activity/Vol] 17 U/L 13-39 [facility] Basophils Auto (Bld) [#/Vol] Ordered By: Dejuan Wolf on 10-03-2022 Basophils (Bld) [#/Vol] 0.1 10*3/uL 0.0-0.2 [facility] Basophils/100 WBC Auto (Bld) Ordered By: Dejuan Wolf on 10-03-2022 Basophils/100 WBC (Bld) 1.2 % . [facility] Bilirubin.total [Mass/volume ] in Serum or PlasmaOrdered By: Dejuan Wolf on 10-03-2022 Bilirubin [Mass/Vol] 0.5 mg/dL 0.3-1.0 [facility] Calcium [Mass/volume] in Ser um or PlasmaOrdered By: Dejuan Wolf on 10-03-2022 Calcium [Mass/Vol] 9.6 mg/dL 8.6-10.3 [facility] Carbon dioxide, total [Moles /volume] in Serum or PlasmaOrdered By: Dejuan Wolf on 10-03-2022 CO2 [Moles/Vol] 25.4 mmol/L 21.0-31.0 [facility] Chloride [Moles/volume] in S glendy or PlasmaOrdered By: Dejuan Wolf on 10-03-2022 Chloride [Moles/Vol] 105 mmol/L 98-107 [facility] Creatinine [Mass/volume] in Serum or PlasmaOrdered By: Dejuan Wolf on 10-03-2022 Creatinine [Mass/Vol] 0.92 mg/dL 0.70-1.30 [facility] Eosinophils Auto (Bld) [#/Vo l]Ordered By: Dejuan Wolf on 10-03-2022 Eosinophils (Bld) [#/Vol] 0.5 10*3/uL 0.0-0.45 [facility] Eosinophils/100 WBC Auto (Bl d)Ordered By: Dejuan Wolf on 10-03-2022 Eosinophils/100 WBC (Bld) 3.8 % . [facility] Erythrocyte distribution wid th Auto (RBC) [Ratio]Ordered By: Dejuan Wolf on 10-03-2022 Erythrocyte distribution width (RBC) [Ratio] 16.4 % 12.0-14.8 [facility] Globulin Calc (S) [Mass/Vol] Ordered By: Dejuan Wolf on 10-03-2022 Globulin (S) [Mass/Vol] 3.1 g/dL [facility] Glucose [Mass/volume] in Ser um or PlasmaOrdered By: Dejuan Wolf on 10-03-2022 Glucose [Mass/Vol] 119 mg/dL 74-109 [facility] Comment on above: ADA recommended refe rence rangeRandom Glucose Reference Range is dependent on time and content of last meal. Glucose of more than 200 mg/dL in a nonstressed, ambulatory subject supports the diagnosis of Diabetes Mellitus. Hematocrit Auto (Bld) [Volum e fraction]Ordered By: Dejuan Wolf on 10-03-2022 Hematocrit (Bld) [Volume fraction] 38.8 % 38.8-50.0 [facility] Hemoglobin [Mass/volume] in BloodOrdered By: Dejuan Wolf on 10-03-2022 Hemoglobin (Bld) [Mass/Vol] 12.9 g/dL 13.0-17.0 [facility] Laboratory - Chemistry and C hemistry - challengeOrdered By: Dejuan Wolf on 10-03-2022 GFR/1.73 sq M.predicted MDRD (S/P/Bld) [Vol rate/Area] mL/min/{1.73_m2} [facility] Lactate [Moles/volume] in Se rum or PlasmaOrdered By: Dejuan Wolf on 10-03-2022 Lactate [Moles/Vol] 0.9 mmol/L 0.5-2.2 [facility] Leukocytes [#/volume] correc dhaval for nucleated erythrocytes in Blood by Automated counOrdered By: Dejuan Wolf on 10-03-2022 WBC corrected for nucl RBC Auto (Bld) [#/Vol] 12.1 10*3/uL 4.1-10.5 [facility] Lipase [Enzymatic activity/v olume] in Serum or PlasmaOrdered By: Dejuan Wolf on 10-03-2022 Lipase [Catalytic activity/Vol] 10.0 U/L 11.0-82.0 [facility] Lymphocytes Auto (Bld) [#/Vo l]Ordered By: Dejuan Wolf on 10-03-2022 Lymphocytes (Bld) [#/Vol] 2.5 10*3/uL 1.00-4.8 [facility] Lymphocytes/100 WBC Auto (Bl d)Ordered By: Dejuan Wolf on 10-03-2022 Lymphocytes/100 WBC (Bld) 20.7 % . [facility] MCH Auto (RBC) [Entitic mass ]Ordered By: Dejuan Wolf on 10-03-2022 MCH (RBC) [Entitic mass] 28.5 pg 27.5-35.2 [facility] MCHC Auto (RBC) [Mass/Vol]Or dered By: Dejuan Wolf on 10-03-2022 MCHC (RBC) [Mass/Vol] 33.2 g/dL 32.5-35.6 [facility] MCV Auto (RBC) [Entitic vol] Ordered By: Dejuan Wolf on 10-03-2022 MCV (RBC) [Entitic vol] 85.9 fL 83.5-101 [facility] Monocytes Auto (Bld) [#/Vol] Ordered By: Dejuan Wolf on 10-03-2022 Monocytes (Bld) [#/Vol] 0.6 10*3/uL 0.0-0.8 [facility] Monocytes/100 WBC Auto (Bld) Ordered By: Dejuan Wolf on 10-03-2022 Monocytes/100 WBC (Bld) 5.3 % . [facility] Neutrophils Auto (Bld) [#/Vo l]Ordered By: Dejuan Wolf on 10-03-2022 Neutrophils (Bld) [#/Vol] 8.4 10*3/uL 1.8-7.7 [facility] Neutrophils/100 WBC Auto (Bl d)Ordered By: Dejuan Wolf on 10-03-2022 Neutrophils/100 WBC (Bld) 69.0 % . [facility] No Panel InformationOrdered By: Dejuan Wolf on 10-03-2022 Pharmacy Creatinine Clearance (Chem 59.06 [facility] Nucleated erythrocytes [Pres ence] in Blood by Automated countOrdered By: Dejuan Wolf on 10-03-2022 Nucleated RBC Auto Ql (Bld) 0.1 /100{WBC} 0-0.5 [facility] Platelet mean volume Auto (B ld) [Entitic vol]Ordered By: Dejuan Wolf on 10-03-2022 Platelet mean volume (Bld) [Entitic vol] 9.9 fL 6.6-10.1 [facility] Platelets Auto (Bld) [#/Vol] Ordered By: Dejuan Wolf on 10-03-2022 Platelets (Bld) [#/Vol] 204 10*3/uL 150-450 [facility] Potassium [Moles/volume] in Serum or PlasmaOrdered By: Dejuan Wolf on 10-03-2022 Potassium [Moles/Vol] 4.0 mmol/L 3.5-5.1 [facility] Protein [Mass/volume] in Ser um or PlasmaOrdered By: Dejuan Wolf on 10-03-2022 Protein [Mass/Vol] 7.0 g/dL 6.4-8.9 [facility] RBC Auto (Bld) [#/Vol]Ordere d By: Dejuan Wolf on 10-03-2022 RBC (Bld) [#/Vol] 4.52 10*6/uL 3.90-5.60 [facility] Serum or plasma albumin/glob ulin mass ratioOrdered By: Dejuan Wolf on 10-03-2022 Albumin/Globulin [Mass ratio] 1.3 {ratio} [facility] Serum or plasma anion gap de terminationOrdered By: Dejuan Wolf on 10-03-2022 Anion gap [Moles/Vol] 10.6 mmol/L 6.0-15.0 [facility] Sodium [Moles/volume] in Ser um or PlasmaOrdered By: Dejuan Wolf on 10-03-2022 Sodium [Moles/Vol] 137 mmol/L 136-145 [facility] Urea nitrogen [Mass/volume] in Serum or PlasmaOrdered By: Dejuan Wolf on 10-03-2022 Urea nitrogen [Mass/Vol] 17 mg/dL 7 [facility] WBC Auto (Bld) [#/Vol]Ordere d By: Dejuan Wolf on 10-03-2022 WBC (Bld) [#/Vol] 12.1 10*3/uL 4.1-10.5 [facility] Activated partial thrombopla stin time (aPTT) in platelet poor plasma by coagulation aOrdered By: Ubaldo Poole on 09-29-2022 aPTT Coag (PPP) [Time] 31.7 s 25.1-36.5 [facility] Glucose Glucometer (BldC) [M ass/Vol]Ordered By: Anton Fontenot on 09-29-2022 Glucose [Mass/Vol] 197 mg/dL [facility] Comment on above: Random Glucose Refer ence Range is dependent on time and content of last meal. Glucose of more than 200 mg/dL in a nonstressed, ambulatory subject supports the diagnosis of Diabetes Mellitus. Alanine aminotransferase [En zymatic activity/volume] in Serum or PlasmaOrdered By: Ubaldo Poole on 09-28-2022 ALT [Catalytic activity/Vol] 200 U/L [facility] Albumin [Mass/volume] in Ser um or Plasma by Bromocresol green (BCG) dye binding methoOrdered By: Ubaldo Poole on 09-28-2022 Albumin BCG dye [Mass/Vol] 3.2 g/dL 3.5-5.7 [facility] Alkaline phosphatase [Enzyma tic activity/volume] in Serum or PlasmaOrdered By: Ubaldo Poole on 09-28-2022 ALP [Catalytic activity/Vol] 228 U/L 34-104 [facility] Aspartate aminotransferase [ Enzymatic activity/volume] in Serum or PlasmaOrdered By: Ubaldo Poole on 09-28-2022 AST [Catalytic activity/Vol] 88 U/L 13-39 [facility] Bilirubin.total [Mass/volume ] in Serum or PlasmaOrdered By: Ubaldo Poole on 09-28-2022 Bilirubin [Mass/Vol] 0.9 mg/dL 0.3-1.0 [facility] Calcium [Mass/volume] in Ser um or PlasmaOrdered By: Ubaldo Poole on 09-28-2022 Calcium [Mass/Vol] 8.5 mg/dL 8.6-10.3 [facility] Carbon dioxide, total [Moles /volume] in Serum or PlasmaOrdered By: Ubaldo Poole on 09-28-2022 CO2 [Moles/Vol] 23.9 mmol/L 21.0-31.0 [facility] Chloride [Moles/volume] in S glendy or PlasmaOrdered By: Ubaldo Poole on 09-28-2022 Chloride [Moles/Vol] 108 mmol/L 98-107 [facility] Creatinine [Mass/volume] in Serum or PlasmaOrdered By: Ubaldo Poole on 09-28-2022 Creatinine [Mass/Vol] 1.13 mg/dL 0.70-1.30 [facility] Globulin Calc (S) [Mass/Vol] Ordered By: Ubaldo Poole on 09-28-2022 Globulin (S) [Mass/Vol] 2.1 g/dL [facility] Glucose [Mass/volume] in Ser um or PlasmaOrdered By: Ubaldo Poole on 09-28-2022 Glucose [Mass/Vol] 115 mg/dL 74-109 [facility] Comment on above: ADA recommended refe rence rangeRandom Glucose Reference Range is dependent on time and content of last meal. Glucose of more than 200 mg/dL in a nonstressed, ambulatory subject supports the diagnosis of Diabetes Mellitus. Lab Reportson 09-28-2022 Lab Reports [id number] Normal [facility] - Chemistry and C hemistry - challengeOrdered By: Ubaldo Poole on 09-28-2022 GFR/1.73 sq M.predicted MDRD (S/P/Bld) [Vol rate/Area] mL/min/{1.73_m2} [facility] No Panel InformationOrdered By: Anton Fontenot on 09-28-2022 Bedside Glucose Comment Glu2: cleaned meter [facility] No Panel InformationOrdered By: Ubaldo Poole on 09-28-2022 Pharmacy Creatinine Clearance (Chem 50.72 [facility] Potassium [Moles/volume] in Serum or PlasmaOrdered By: Ubaldo Poole on 09-28-2022 Potassium [Moles/Vol] 3.7 mmol/L 3.5-5.1 [facility] Protein [Mass/volume] in Ser um or PlasmaOrdered By: Ubaldo Poole on 09-28-2022 Protein [Mass/Vol] 5.3 g/dL 6.4-8.9 [facility] Serum or plasma albumin/glob ulin mass ratioOrdered By: Ubaldo Poole on 09-28-2022 Albumin/Globulin [Mass ratio] 1.5 {ratio} [facility] Serum or plasma anion gap de terminationOrdered By: Ubaldo Poole on 09-28-2022 Anion gap [Moles/Vol] 9.8 mmol/L 6.0-15.0 [facility] Sodium [Moles/volume] in Ser um or PlasmaOrdered By: Ubaldo Poole on 09-28-2022 Sodium [Moles/Vol] 138 mmol/L 136-145 [facility] Urea nitrogen [Mass/volume] in Serum or PlasmaOrdered By: Ubaldo Poole on 09-28-2022 Urea nitrogen [Mass/Vol] 20 mg/dL 7-25 [facility] Basophils Auto (Bld) [#/Vol] Ordered By: Ubaldo Poole on 09-27-2022 Basophils (Bld) [#/Vol] 0.1 10*3/uL 0.0-0.2 [facility] Basophils/100 WBC Auto (Bld) Ordered By: Ubaldo Poole on 09-27-2022 Basophils/100 WBC (Bld) 0.6 % . [facility] Eosinophils Auto (Bld) [#/Vo l]Ordered By: Ubaldo Poole on 09-27-2022 Eosinophils (Bld) [#/Vol] 0.3 10*3/uL 0.0-0.45 [facility] Eosinophils/100 WBC Auto (Bl d)Ordered By: Ubaldo Poole on 09-27-2022 Eosinophils/100 WBC (Bld) 2.4 % . [facility] Erythrocyte distribution wid th Auto (RBC) [Ratio]Ordered By: Ubaldo Poole on 09-27-2022 Erythrocyte distribution width (RBC) [Ratio] 16.4 % 12.0-14.8 [facility] Hematocrit Auto (Bld) [Volum e fraction]Ordered By: Ubaldo Poole on 09-27-2022 Hematocrit (Bld) [Volume fraction] 35.5 % 38.8-50.0 [facility] Hemoglobin [Mass/volume] in BloodOrdered By: Ubaldo Poole on 09-27-2022 Hemoglobin (Bld) [Mass/Vol] 11.5 g/dL 13.0-17.0 [facility] Laboratory - CoagulationOrde red By: Ubaldo Poole on 09-27-2022 PT Coag (PPP) [Time] 14.3 s 9.0-12.9 [facility] Leukocytes [#/volume] correc dhaval for nucleated erythrocytes in Blood by Automated counOrdered By: Ubaldo Poole on 09-27-2022 WBC corrected for nucl RBC Auto (Bld) [#/Vol] 12.4 10*3/uL 4.1-10.5 [facility] Lymphocytes Auto (Bld) [#/Vo l]Ordered By: Ubaldo Poole on 09-27-2022 Lymphocytes (Bld) [#/Vol] 1.4 10*3/uL 1.00-4.8 [facility] Lymphocytes/100 WBC Auto (Bl d)Ordered By: Ubaldo Poole on 09-27-2022 Lymphocytes/100 WBC (Bld) 11.3 % . [facility] MCH Auto (RBC) [Entitic mass ]Ordered By: Ubaldo Poole on 09-27-2022 MCH (RBC) [Entitic mass] 27.7 pg 27.5-35.2 [facility] MCHC Auto (RBC) [Mass/Vol]Or dered By: Ubaldo Poole on 09-27-2022 MCHC (RBC) [Mass/Vol] 32.4 g/dL 32.5-35.6 [facility] MCV Auto (RBC) [Entitic vol] Ordered By: Ubaldo Poole on 09-27-2022 MCV (RBC) [Entitic vol] 85.7 fL 83.5-101 [facility] Monocytes Auto (Bld) [#/Vol] Ordered By: Ubaldo Poole on 09-27-2022 Monocytes (Bld) [#/Vol] 0.8 10*3/uL 0.0-0.8 [facility] Monocytes/100 WBC Auto (Bld) Ordered By: Ubaldo Poole on 09-27-2022 Monocytes/100 WBC (Bld) 6.1 % . [facility] Neutrophils Auto (Bld) [#/Vo l]Ordered By: Ubaldo Poole on 09-27-2022 Neutrophils (Bld) [#/Vol] 9.9 10*3/uL 1.8-7.7 [facility] Neutrophils/100 WBC Auto (Bl d)Ordered By: Ubaldo Poole on 09-27-2022 Neutrophils/100 WBC (Bld) 79.6 % . [facility] Nucleated erythrocytes [Pres ence] in Blood by Automated countOrdered By: Ubaldo Poole on 09-27-2022 Nucleated RBC Auto Ql (Bld) 0.0 /100{WBC} 0-0.5 [facility] Platelet mean volume Auto (B ld) [Entitic vol]Ordered By: Ubaldo Poole on 09-27-2022 Platelet mean volume (Bld) [Entitic vol] 10.2 fL 6.6-10.1 [facility] Platelet poor plasma interna tional normalized ratio (INR) by coagulation assay (relatOrdered By: Ubaldo Poole on 09-27-2022 INR Coag (PPP) [Relative time] 1.2 {INR} [facility] Comment on above: INR Therapeutic Rang e A) Pre- and Peroperative OAT started two weeks before surgery. NOT HIP SURGERY: 1.5 - 2.5 HIP SURGERY: 2 - 3B) Primary and secondary prevention of venous THROMBOSIS: 2 - 3C) Active venous thrombosis, pulmonary embolismand prevention of recurrent venous thrombosis: 2 - 3D) Prevention of arterial thromboembolismincluding patients with mechanical heart valves: 3 - 4.5 Platelets Auto (Bld) [#/Vol] Ordered By: Ubaldo Poole on 09-27-2022 Platelets (Bld) [#/Vol] 127 10*3/uL 150-450 [facility] RBC Auto (Bld) [#/Vol]Ordere d By: Ubaldo Poole on 09-27-2022 RBC (Bld) [#/Vol] 4.14 10*6/uL 3.90-5.60 [facility] Troponin I.cardiac [Mass/vol ume] in Serum or Plasma by Detection limit <= 0.01 ng/Ordered By: Ubaldo Poole on 09-27-2022 Troponin I.cardiac DL <= 0.01 ng/mL [Mass/Vol] 3799.2 pg/mL 0.0-20.0 [facility] Comment on above: Critical Result : Ca lled to and read back by: TONIO MILLS at: 09/27/2022 07:53:46 by:[id number] WBC Auto (Bld) [#/Vol]Ordere d By: Ubaldo Poole on 09-27-2022 WBC (Bld) [#/Vol] 12.4 10*3/uL 4.1-10.5 [facility] AMYLASEon 09-26-2022 Amylase [Catalytic activity/Vol] 39 U/L Normal 25-115 [facility] Comment on above: Performed By: #### V ITSYLVESTER, PSASC #### [facility] [address] [place] [address] Dr. Charlotte Awan CARDIAC MACY 3-6on 3 CK [Catalytic activity/Vol] 33 U/L Critically low 39-308 [facility] [facility] Comment on above: Performed By: #### V ITAD, PSASC #### [facility] [address] [place] [address] Dr. Charlotte Awan CK.MB [Mass/Vol] 1.23 ng/mL Normal <=3.60 [facility] Comment on above: Performed By: #### V ITAD, PSASC #### [facility] [address] [place] [address] Dr. Charlotte Awan HSTROP 45.3 pg/mL Normal 4.0-76.1 [facility] Comment on above: Result Comment: CUT- OFF POINTS HAVE BEEN ESTABLISHED BASED ON THE FOURTH UNIVERSAL DEFINITIONS OF MYOCARDIAL INFARCTION. THE UPPER REFERENCE LIMIT (URL) OF TROPONIN, DEFINED THE 99TH PERCENTILE OF cTnI DISTRIBUTION IN A REFERENCE POPULATION, HAS BEEN CONFIRMED THE DECISION THRESHOLD FOR CT DIAGNOSIS. Performed By: #### V ITSYLVESTER, PSASC #### [facility] [address] [place] [address] Dr. Charlotte Awan CARDIAC MACY ADMITon 023 CK [Catalytic activity/Vol] 27 U/L Critically low 39-308 [facility] Comment on above: Performed By: #### V ITAD, PSASC #### [facility] [address] [place] [address] Dr. Charlotte Awan CK.MB [Mass/Vol] 1.15 ng/mL Normal <=3.60 [facility] Comment on above: Performed By: #### V ITAD, PSASC #### [facility] [address] [place] [address] Dr. Charlotte Awan HSTROP 9.4 pg/mL Normal 4.0-76.1 [facility] Comment on above: Result Comment: CUT- OFF POINTS HAVE BEEN ESTABLISHED BASED ON THE FOURTH UNIVERSAL DEFINITIONS OF MYOCARDIAL INFARCTION. THE UPPER REFERENCE LIMIT (URL) OF TROPONIN, DEFINED THE 99TH PERCENTILE OF cTnI DISTRIBUTION IN A REFERENCE POPULATION, HAS BEEN CONFIRMED THE DECISION THRESHOLD FOR CT DIAGNOSIS. Performed By: #### V HARLEEN ANDERSON #### [facility] [address] [place] [address] Dr. Charlotte Awan SHERRI 20 ng/mL Normal 16-96 [facility] Comment on above: Performed By: #### V HARLEEN ANDERSON #### [facility] [address] [place] [address] Dr. Charlotte Awan CBC W MANUAL DIFFon 09-27-19 23 ATYPICAL LYMPH # 2.14 103/ul Normal [facility] Comment on above: Performed By: #### C ANALISA #### [facility] [address] [place] [address] Dr. Charlotte Awan ATYPICAL LYMPH % 20 % Normal [facility] Comment on above: Performed By: #### C ANALISA #### [facility] [address] [place] [address] Dr. Charlotte Awan BAND # 0.0 103/ul Normal 0.0-0.3 [facility] Comment on above: Performed By: #### C ANALISA #### [facility] [address] [place] [address] Dr. Charlotte Awan BAND % 0 % Normal 0-5 [facility] Comment on above: Performed By: #### C ANALISA #### [facility] [address] [place] [address] Dr. Charlotte Awan BASOM # 0.00 103/ul Normal 0.00-0.10 [facility] Comment on above: Performed By: #### C ANALISA #### [facility] [address] [place] [address] Dr. Charlotte Awan BASOM % 0.0 % Critically low 0.2-2.0 [facility] Comment on above: Performed By: #### C ANALISA #### [facility] [address] [place] [address] Dr. Charlotte Awan BLAST # Normal [facility] Comment on above: Performed By: #### C ANALISA #### [facility] [address] [address] [address] Charlotte Awan BLAST % Normal [facility] Comment on above: Performed By: #### C ANALISA #### [facility] [address] [place] [address] Dr. Charlotte Awan CORRECTED WBC Normal 4.0-11.0 [facility] Comment on above: Performed By: #### C ANALISA #### [facility] [address] [address] [address] Charlotte Awan EOS # 0.86 103/ul Critically high 0.00-0.70 [facility] Comment on above: Performed By: #### C ANALISA #### [facility] [address] [place] [address] Dr. Charlotte Awan EOS% 8.0 % Critically high 0.9-7.0 [facility] Comment on above: Performed By: #### C ANALISA #### [facility] [address] [place] [address] Dr. Charlotte Awan HCT 37.8 % Critically low 42.0-54.0 [facility] Comment on above: Performed By: #### C ANALISA #### [facility] [address] [place] [address] Dr. Charlotte Awan HGB 12.1 g/dl Critically low 14.0-18.0 [facility] Comment on above: Performed By: #### C ANALISA #### [facility] [address] [place] [address] Dr. Charlotte Awan LYMPHM # 1.93 103/ul Normal 1.20-3.80 [facility] Comment on above: Performed By: #### C ANALISA #### [facility] [address] [place] [address] Dr. Charlotte Awan LYMPHM% 18.0 % Critically low 20.5-60.0 [facility] Comment on above: Performed By: #### C ANALISA #### [facility] [address] [place] [address] Dr. Charlotte Awan MCH 27.9 pg Normal 25.9-34.0 [facility] Comment on above: Performed By: #### C ANALISA #### [facility] [address] [address] [address] Charlotte Awan MCHC 32.0 g/dl Normal 29.9-35.2 [facility] Comment on above: Performed By: #### C ANALISA #### [facility] [address] [place] [address] Dr. Charlotte Awan MCV 87.1 fL Normal 80.0-94.0 [facility] Comment on above: Performed By: #### C ANALISA #### [facility] [address] [place] [address] Dr. Charlotte Awan METAMYELOCYTE # Normal [facility] Comment on above: Performed By: #### C ANALISA #### [facility] [address] [place] [address] Dr. Charlotte Awan METAMYELOCYTE % Normal [facility] Comment on above: Performed By: #### C ANALISA #### [facility] [address] [place] [address] Dr. Charlotte Awan MONOM# 0.32 103/ul Normal 0.30-0.80 [facility] Comment on above: Performed By: #### C ANALISA #### [facility] [address] [place] [address] Dr. Charlotte Awan MONOM% 3.0 % Normal 1.7-12.0 [facility] Comment on above: Performed By: #### C ANALISA #### [facility] [address] [place] [address] Dr. Charlotte Awan MPV 12.1 fL Normal 9.5-13.5 [facility] Comment on above: Performed By: #### C ANALISA #### [facility] [address] [place] [address] Dr. Charlotte Awan MYELOCYTE # Normal [facility] Comment on above: Performed By: #### C ANALISA #### [facility] [address] [place] [address] Dr. Charlotte Awan MYELOCYTE % Normal [facility] Comment on above: Performed By: #### C BCMAN #### [facility] [address] [place] [address] Dr. Charlotte Awan NRBC Normal [facility] Comment on above: Performed By: #### Sarina HAUSER #### [facility] [address] [place] [address] Dr. Charlotte Awan PLT 181 103/ul Normal 150-450 [facility] Comment on above: Performed By: #### Sarina HAUSER #### [facility] [address] [place] [address] Dr. Charlotte Awan RBC 4.34 106/ul Critically low 4.70-6.10 [facility] Comment on above: Performed By: #### Sarina HAUSER #### [facility] [address] [place] [address] Dr. Charlotte Awan RDW 15.8 % Critically high 11.0-15.0 [facility] Comment on above: Performed By: #### Sarina HAUSER #### [facility] [address] [place] [address] Dr. Charlotte Awan SEG # 5.46 103/ul Normal 1.40-6.50 [facility] Comment on above: Performed By: #### Sarina HAUSER #### [facility] [address] [place] [address] Dr. Charlotte Awan SEG % 51.0 % Normal 43.0-75.0 [facility] Comment on above: Performed By: #### Sarina HAUSER #### [facility] [address] [place] [address] Dr. Charlotte Awan WBC 10.7 103/ul Normal 4.0-11.0 [facility] Comment on above: Performed By: #### Sarina HAUSER #### [facility] [address] [place] [address] Dr. Charlotte Awan CTA ABD/PELVIS WO W CONon CTA ABD/PELVIS WO W CON CTA ABD/PELVIS WO W CON: 09/26/2022 4:13 AM EST CLINICAL HISTORY: 71 years old Male with Pain COMPARISON: CT abdomen pelvis performed 07/27/2021. TECHNIQUE: Contiguous axial images were obtained from the level just above the diaphragms to the level of the pubic symphysis The patient was injected with intravenous contrast. Coronal and sagittal reformations are obtained. Additional 3-D reconstruction images were obtained on a separate workstation to aid in interpretation. Dose reduction techniques were achieved by using automated exposure control and/or adjustment of mA and/or kV according to patient size and/or use of iterative reconstruction technique. FINDINGS: Infrarenal abdominal aortic aneurysm is again present currently measuring up to 5.6 x 4.3 cm in AP and transverse diameter measured in the axial plane 5.4 cm in AP diameter measured in the sagittal plane at the inferior aorta (previously 6.2 cm). Aneurysmal dilatation at the mid abdominal aorta superior to this has progressed from the prior study currently measuring 4.0 cm in AP diameter previously 3.3 cm in region of stent. There is interval placement of aortobiiliac stents which appears normally patent with peripheral mural thrombus present. Aneurysmal dilatation of the right common iliac artery at 2.9 cm and left common iliac artery at 2.7 cm are present with mural thrombus [(previously 2.8 cm on the right and 2.5 cm on the left). 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 The superior mesenteric artery appears normally patent. Single renal arteries bilaterally are normally patent. Intimal thickening of the left proximal superficial femoral artery is present. Severe stenotic lesions of the internal iliac arteries are again present bilaterally. Evaluation of the viscera is degraded due to single arterial phase of contrast. Portions of the lung bases included on the examination appear unremarkable. There is apparent abnormal mucosal thickening of the gastric body wall measuring up to 2.8 cm as well as edematous appearance of the duodenal bulb and descending duodenum with distention measuring up to 6.2 cm. 2 diverticula of the colon are present without inflammatory change. The appendix is visualized without inflammatory change. Otherwise no abnormally dilated loops of small bowel are present. No free air. No free fluid is seen within the abdomen. Abnormal hyperattenuation surrounding the common bile duct is present at the pancreas measuring approximately 1.2 x 1.16 (series 4 image 89). Additional side branch dilatations of the pancreatic duct are present and small cystic structures at the pancreatic neck. The liver, spleen, gallbladder and bilateral adrenal glands are grossly unremarkable. Minimally enlarged retroperitoneal lymph nodes at the mid abdominal aorta level are present measuring 1.3 x 1.7 cm and 1.4 x 2.1 cm. No hydronephrosis bilaterally. Cysts are present bilaterally of the kidneys measuring up to 3.5 x 3.4 cm in AP and transverse diameter at the right kidney. Bilateral less than 5 mm likely renal calculi are present. The osseous structures are grossly unremarkable. IMPRESSION: 1. Infrarenal abdominal aortic aneurysm as overall decreased in size in greatest AP diameter measured in the sagittal plane currently 5.4 cm previously 6.2 cm with interval placement of aortobiiliac graft which is normally patent on single arterial phase imaging without evidence of endoleak there is increased aneurysmal dilatation of the mid abdominal aorta at 4.0 cm previously 3.3 cm in region of stent. 2. Bilateral iliac artery aneurysms are similar to the prior study with stents present. 3. 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 4. Interval suspicious hypoattenuating lesion at the pancreatic head about the common bile duct measuring up to 1.6 cm for possible pancreatic carcinoma. Additional pancreatic duct side branch dilatations and small cyst at the pancreatic neck are present. MRI per pancreas protocol is recommended. Alternatively endoscopic sampling could be obtained by ERCP. 5. Apparent mucosal thickening of the gastric body and duodenum with abnormal distention of the duodenum concerning for gastritis duodenitis with neoplastic process not excluded. This could be further evaluated with endoscopy. 6. Concern for bilateral retroperitoneal adenopathy measuring up to 2.1 cm. These lesions do have a somewhat serpiginous appearance on the coronal projections and may represent vascularity or lymphatic duct dilatation. 7. Bilateral nonobstructing renal calculi and simple renal cysts. Suspicious findings submitted to incidental findings call file. Electronically authenticated by: CHRISS BETANCOURT Date: 2022-09-26 06:17 Normal [facility] LIPASEon 09-26-2022 Lipase [Catalytic activity/Vol] 116.0 U/L Normal 73.0-393.0 [facility] Comment on above: Performed By: #### V ITSYLVESTER, PSASC #### [facility] [address] [place] [address] Dr. Charlotte Awan PROF 14(COMP METB)on 023 Albumin [Mass/Vol] 3.1 g/dL Critically low 3.4-5.0 [facility] Comment on above: Performed By: #### V ITAD, PSASC #### [facility] [address] [address] [address] Charlotte Awan Albumin/Globulin [Mass ratio] 0.9 {ratio} Normal [facility] Comment on above: Performed By: #### V ITAD, PSASC #### [facility] [address] [address] [address] Charlotte Awan ALP [Catalytic activity/Vol] 180 U/L Critically high 46-116 [facility] Comment on above: Performed By: #### V ITAD, PSASC #### [facility] [address] [place] [address] Dr. Charlotte Awan ALT [Catalytic activity/Vol] 54 U/L Normal 16-63 [facility] Comment on above: Performed By: #### V ITAD, PSASC #### [facility] [address] [place] [address] Dr. Charlotte Awan Anion gap [Moles/Vol] 8.0 mmol/L Normal [facility] Comment on above: Performed By: #### V ITAD, PSASC #### [facility] [address] [place] [address] Dr. Charlotte Awan AST [Catalytic activity/Vol] 119 U/L Critically high 15-37 [facility] Comment on above: Performed By: #### V ITAD, PSASC #### [facility] [address] [address] [address] Charlotte Awan Bilirubin [Mass/Vol] 0.4 mg/dL Normal 0.2-1.0 [facility] Comment on above: Performed By: #### V ITAD, PSASC #### [facility] [address] [place] [address] Dr. Charlotte Awan Calcium [Mass/Vol] 9.1 mg/dL Normal 8.5-10.1 [facility] Comment on above: Performed By: #### V ITAD, PSASC #### [facility] [address] [place] [address] Dr. Charlotte Awan Chloride [Moles/Vol] 109 mmol/L Critically high 98-107 [facility] Comment on above: Performed By: #### V ITSYLVESTER, PSASC #### [facility] [address] [place] [address] Dr. Charlotte Awan CO2 [Moles/Vol] 27.6 mmol/L Normal 21.0-32.0 [facility] Comment on above: Performed By: #### V ITAD, PSASC #### [facility] [address] [address] [address] Charlotte Awan Creatinine [Mass/Vol] 0.91 mg/dL Normal 0.70-1.30 [facility] Comment on above: Performed By: #### V ITSYLVESTER, PSASC #### [facility] [address] [place] [address] Dr. Charlotte Awan EGFR-AF ESTONIAN >60 Normal >=60 [facility] Comment on above: Performed By: #### V ITSYLVESTER, PSASC #### [facility] [address] [place] [address] Dr. Charlotte wAan EGFR-NON AF ESTONIAN >60 Normal >=60 [facility] Comment on above: Performed By: #### V ITSYLVESTER, PSASC #### [facility] [address] [place] [address] Dr. Charlotte Awan Globulin (S) [Mass/Vol] 3.4 g/dL Normal [facility] Comment on above: Performed By: #### V ITAD, PSASC #### [facility] [address] [place] [address] Dr. Charlotte Awan Glucose [Mass/Vol] 99 mg/dL Normal 74-106 [facility] Comment on above: Performed By: #### V ITAD, PSASC #### [facility] [address] [place] [address] Dr. Charlotte Awan Potassium [Moles/Vol] 3.6 mmol/L Normal 3.5-5.1 [facility] Comment on above: Performed By: #### V ITAD, PSASC #### [facility] [address] [place] [address] Dr. Charlotte Awan Protein [Mass/Vol] 6.5 g/dL Normal 6.4-8.2 [facility] Comment on above: Performed By: #### V ITAD, PSASC #### [facility] [address] [address] [address] Charlotte Awan Sodium [Moles/Vol] 141 mmol/L Normal 136-145 [facility] Comment on above: Performed By: #### V ITAD, PSASC #### [facility] [address] [address] [address] Charlotte Awan Urea nitrogen [Mass/Vol] 15.0 mg/dL Normal 7.0-18.0 [facility] Comment on above: Performed By: #### V ITAD, PSASC #### [facility] [address] [address] [address] Charlotte Awan Urea nitrogen/Creatinine [Mass ratio] 16.5 mg/mg Normal [facility] Comment on above: Performed By: #### V ITAD, PSASC #### [facility] [address] [address] [address] Charlotte Awan Serum or plasma cancer antig en 19-9 measurement (units/volume)Ordered By: Yemi Silverio on 09-26-2022 Cancer Ag 19-9 Qn 74 [arb'U]/mL 0-35 [facility] Comment on above: [employer] El ectrochemiluminescence Immunoassay(ECLIA)Values obtained with different assay methods or kits cannotbe used interchangeably. Results cannot be interpreted asabsolute evidence of the presence or absence of malignantdisease.Performed at: [id number] [place], [place] [id number] Director: Anselmo Weiss PhD, Phone: [phone] XR CHEST 1 Von 09-26-2022 XR CHEST 1 V EXAM: XR CHEST 1 V 09/26/2022 4:12 AM EST [id number] CLINICAL STATEMENT: CHEST PAIN, UNSPECIFIED COMPARISON: No prior studies are available at the time of dictation. TECHNIQUE: Single AP radiograph of the chest is submitted. FINDINGS: There is no acute airspace disease. The cardiac silhouette is normal. The costophrenic recesses are sharp. No pneumothorax. The bony elements are unremarkable. IMPRESSION: No acute cardiopulmonary process. 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 Though it is not easy, more than half of all adult smokers have quit. We encourage you to write down all the reasons you should quit smoking and set a quit date for yourself. Ask us how we can help. You may also call 0-753-YACZNOW for free resources and assistance.; Status:Complete - Retrospective Authorization; Done: [id number] Tobacco Use Screening; Status:Complete; Done: [id number] Two-vessel coronary artery disease Renew: Aspirin EC 81 MG Oral Tablet Delayed Release; TAKE 1 TABLET DAILY Patient Instructions Please bring all medicines, vitamins, and herbal supplements with you when you come to the office. Prescriptions will not be filled unless you are compliant with your follow up appointments or have a follow up appointment scheduled as per instruction of your physician. Refills should be requested at the time of your visit. Follow up in [8 ] months Chief Complaint GOPAL IRVING is being seen for a 8 month follow-up of. 71-year-old gentleman returns for follow-up and is here with his caregiver/daughter today is doing well from a cardiovascular standpoint still recovering from his abdominal endograft and left iliofemoral revascularization from last July. Mode of ambulation is by wheelchair today due to his fragility and vascular disease and ongoing COPD. Cardiac catheterization report reviewed from July preoperatively for clearance revealing widely patent LAD and RCA stents with diffuse small vessel disease. Unfortunately continues smoking we took 3 to 5 minutes today to deputy county counsel him on smoking cessation. He remains on appropriate guideline directed medical therapies as reviewed we have no recent laboratories to review but his daughter who is a nurse states that Dr. Garcia is actively involved with assessing and treating his diabetes and other comorbidities and assessing laboratories. Recommendations: Continue current therapies, although he would be a candidate for Xarelto 2.5 twice daily and this is still a consideration I would hold off for the time being due to risk of bleeding and falling. Will otherwise follow-up within 1 Surgical History Problems History of Angioplasty History of Cardiac catheterization with stent placement History of Colonoscopy 20Jul2014 History of Ear surgery History of Eye surgery History of Prostate biopsy History of Transurethral resection of prostate Past Medical History Problems History of Benign essential hypertension (401.1) (I10) History of nicotine dependence (V15.82) (Z87.891) History of Pain of right lower extremity (729.5) (M79.604) Current Meds Medication NameInstruction Aspirin EC 81 MG Oral Tablet Delayed ReleaseTAKE 1 TABLET DAILY. Cozaar 25 MG Oral TabletTake 1 tablet daily Crestor 20 MG Oral TabletTAKE 1 TABLET DAILY. Esomeprazole Magnesium 40 MG Oral Capsule Delayed ReleaseTAKE 1 CAPSULE TWICE DAILY. HYDROcodone-Acetaminophen 5-325 MG Oral TabletTAKE 1 TABLET EVERY 4 TO 6 HOURS NEEDED FOR PAIN. Iron 325 (65 Fe) MG Oral TabletTake 1 tablet daily metFORMIN HCl - 500 MG Oral TabletTAKE 1 TABLET EVERY 12 HOURS WITH FOOD. Methocarbamol 750 MG Oral TabletTAKE 1 TABLET 3 TIMES DAILY. Metoprolol Succinate ER 25 MG Oral Tablet Extended Release 24 HourTAKE 1 TABLET DAILY. Ofloxacin 0.3 % Ophthalmic SolutionINITIALLY 1-2 DROPS IN AFFECTED EYE(S) EVERY 2-3 HOURS DURING THE DAY. Paxil 20 MG Oral TabletTAKE 1 TABLET DAILY. Polyethylene Glycol 3350 17 GM/SCOOP Oral PowderUSE DIRECTED ONCE DAILY prednisoLONE Acetate 1 % Ophthalmic SuspensionINSTILL 1 DROP INTO AFFECTED EYE(S) 4 TIMES DAILY. Tolterodine Tartrate 2 MG Oral TabletTAKE 1 TABLET PRN Allergies Medication Codeine Derivatives Adverse Reaction; Palpitations; Recorded By: Desirae Toure; 08/11/2021 9:26:16 PM Social History Problems Current smoker (305.1) (F17.200) 3/4 PPD Daily caffeine consumption, 1 serving a day No alcohol use No illicit drug use Review of Systems Constitutional: not feeling tired. Cardiovascular: no intermittent leg claudication and as noted in HPI. Respiratory: no cough and no shortness of breath. Gastrointestinal: no change in bowel habits and no blood in sto (more content not included)... Normal [employer] PHQ-9on 07-23-2022 Adult depression screening assessment Yes [facility] [employer] 250 DO Work Phone: Fall risk assessment a) No falls within the last year [facility] [employer] 250 DO Work Phone: [phone] Tobacco use status CPHS a) Yes [facility] [employer] 250 DO Work Phone: PHQ-9 3-Nearly every day [facility] [employer] 250 DO Work Phone: PHQ-9 0-Not at all [facility] [employer] 250 DO Work Phone: PHQ-9 2-More than half the days [facility] [employer] 250 DO Work Phone: PHQ-9 1-Several days [facility] [employer] 250 DO Work Phone: PHQ-9 Not difficult at all [facility] [employer] 250 DO Work Phone: PHQ-9 Yes [facility] [employer] 250 DO Work Phone: [phone] Patient Educationon 06-29-20 22 Patient Education Urology Benign Prostatic Hyperplasia Benign prostatic hyperplasia (BPH) is an enlarged prostate gland that is caused by the normal aging process and not by cancer. The prostate is a walnut-sized gland that is involved in the production of semen. It is located in front of the rectum and below the bladder. The bladder stores urine and the urethra is the tube that carries the urine out of the body. The prostate may get bigger as a man gets older. An enlarged prostate can press on the urethra. This can make it harder to pass urine. The build-up of urine in the bladder can cause infection. Back pressure and infection may progress to bladder damage and kidney (renal) failure. What are the causes? This condition is part of a normal aging process. However, not all men develop problems from this condition. If the prostate enlarges away from the urethra, urine flow will not be blocked. If it enlarges toward the urethra and compresses it, there will be problems passing urine. What increases the risk? This condition is more likely to develop in men over the age of 50 years. What are the signs or symptoms? Symptoms of this condition include: ? Getting up often during the night to urinate. ? Needing to urinate frequently during the day. ? Difficulty starting urine flow. ? Decrease in size and strength of your urine stream. ? Leaking (dribbling) after urinating. ? Inability to pass urine. This needs immediate treatment. ? Inability to completely empty your bladder. ? Pain when you pass urine. This is more common if there is also an infection. ? Urinary tract infection (UTI). How is this diagnosed? This condition is diagnosed based on your medical history, a physical exam, and your symptoms. Tests will also be done, such as: ? A post-void bladder scan. This measures any amount of urine that may remain in your bladder after you finish urinating. ? A digital rectal exam. In a rectal exam, your health care provider checks your prostate by putting a lubricated, gloved finger into your rectum to feel the back of your prostate gland. This exam detects the size of your gland and any abnormal lumps or growths. ? An exam of your urine (urinalysis). ? A prostate specific antigen (PSA) screening. This is a blood test used to screen for prostate cancer. ? An ultrasound. This test uses sound waves to electronically produce a picture of your prostate gland. Your health care provider may refer you to a specialist in kidney and prostate diseases (urologist). How is this treated? Once symptoms begin, your health care provider will monitor your condition (active surveillance or watchful waiting). Treatment for this condition will depend on the severity of your condition. Treatment may include: ? Observation and yearly exams. This may be the only treatment needed if your condition and symptoms are mild. ? Medicines to relieve your symptoms, including: ? Medicines to shrink the prostate. ? Medicines to relax the muscle of the prostate. ? Surgery in severe cases. Surgery may include: ? Prostatectomy. In this procedure, the prostate tissue is removed completely through an open incision or with a laparoscope or robotics. ? Transurethral resection of the prostate (TURP). In this procedure, a tool is inserted through the opening at the tip of the penis (urethra). It is used to cut away tissue of the inner core of the prostate. The pieces are removed through the same opening of the penis. This removes the blockage. ? Transurethral incision (TUIP). In this procedure, small cuts are made in the prostate. This lessens the prostate's pressure on the urethra. ? Transurethral microwave thermotherapy (TUMT). This procedure uses microwaves to create heat. The heat destroys and removes a small amount of prostate tissue. ? Transurethral needle ablation (TUNA). This procedure uses radio frequencies to destroy and remove a small amount of prostate tissue. ? Interstitial laser coagulation (ILC). This procedure uses a laser to destroy and remove a small amount of prostate tissue. ? Transurethral electrovaporization (TUVP). This procedure uses electrodes to destroy and remove a small amount of prostate tissue. ? Prostatic urethral lift. This procedure inserts an implant to push the lobes of the prostate away from the urethra. Follow these instructions at home: ? Take ucqm-lvn-hvrhuya and prescription medicines only as told by your health care provider. ? Monitor your symptoms for any changes. Contact your health care provider with any changes. ? Avoid drinking large amounts of liquid before going to bed or out in public. ? Avoid or reduce how much caffeine or alcohol you drink. ? Give yourself time when you urinate. ? Keep all follow-up visits as told by your health care provider. This is important. Contact a health care provider if: ? You have unexplained back pain. ? Your symptoms do not get better with treatment. ? You d (more content not included)... Normal [facility] Lab Reportson 06-26-2022 Lab Reports [id number] Normal [facility] CBC AUTO DIFFon 05-21-2022 BASO # 0.0 103/ul Normal 0.0-0.1 [facility] Comment on above: Performed By: #### C BC #### [facility] [address] [address] [address] Charlotte Awan Basophils/100 WBC (Bld) 0.1 % Critically low 0.2-2.0 [facility] Comment on above: Performed By: #### C BC #### [facility] [address] [place] [address] Dr. Charlotte Awan EO # 0.0 103/ul Normal 0.0-0.7 [facility] Comment on above: Performed By: #### C BC #### [facility] [address] [place] [address] Dr. Charlotte Awan Eosinophils/100 WBC (Bld) 0.6 % Critically low 0.9-7.0 [facility] Comment on above: Performed By: #### C BC #### [facility] [address] [place] [address] Dr. Charlotte Awan Erythrocyte distribution width (RBC) [Ratio] 17.2 % Critically high 11.0-15.0 [facility] Comment on above: Performed By: #### C BC #### [facility] [address] [place] [address] Dr. Charlotte Awan Hematocrit (Bld) [Volume fraction] 36.9 % Critically low 42.0-54.0 [facility] Comment on above: Performed By: #### C BC #### [facility] [address] [place] [address] Dr. Charlotte Awan Hemoglobin (Bld) [Mass/Vol] 11.8 g/dL Critically low 14.0-18.0 [facility] Comment on above: Performed By: #### C BC #### [facility] [address] [place] [address] Dr. Charlotte Awan IG # 0.03 10e3/ul Normal 0.00-0.03 [facility] Comment on above: Performed By: #### C BC #### [facility] [address] [place] [address] Dr. Charlotte Awan IG % 0.4 % Normal 0.0-0.5 [facility] Comment on above: Performed By: #### C BC #### [facility] [address] [place] [address] Dr. Charlotte Awan LYMPH # 1.9 103/ul Normal 1.2-3.8 [facility] Comment on above: Performed By: #### C BC #### [facility] [address] [place] [address] Dr. Charlotte Awan Lymphocytes/100 WBC (Bld) 27.1 % Normal 20.5-60.0 [facility] Comment on above: Performed By: #### C BC #### [facility] [address] [place] [address] Dr. Charlotte Awan MANUAL DIFF REQ NO Normal [facility] Comment on above: Performed By: #### C BC #### [facility] [address] [place] [address] Dr. Charlotte Awan MCH (RBC) [Entitic mass] 27.6 pg Normal 25.9-34.0 [facility] Comment on above: Performed By: #### C BC #### [facility] [address] [place] [address] Dr. Charlotte Awan MCHC (RBC) [Mass/Vol] 32.0 g/dL Normal 29.9-35.2 [facility] Comment on above: Performed By: #### C BC #### [facility] [address] [place] [address] Dr. Charlotte Awan MCV (RBC) [Entitic vol] 86.2 fL Normal 80.0-94.0 [facility] Comment on above: Performed By: #### C BC #### [facility] [address] [place] [address] Dr. Charlotte Awan MONO # 0.4 103/ul Normal 0.3-0.8 [facility] Comment on above: Performed By: #### C BC #### [facility] [address] [address] [address] Charlotte Awan Monocytes/100 WBC (Bld) 5.3 % Normal 1.7-12.0 [facility] Comment on above: Performed By: #### C BC #### [facility] [address] [place] [address] Dr. Charlotte Awan NEUT # 4.7 103/ul Normal 1.4-6.5 [facility] Comment on above: Performed By: #### C BC #### [facility] [address] [place] [address] Dr. Charlotte Awan Neutrophils/100 WBC (Bld) 66.5 % Normal 43.0-75.0 [facility] Comment on above: Performed By: #### C BC #### [facility] [address] [place] [address] Dr. Charlotte Awan Platelet mean volume (Bld) [Entitic vol] 12.0 fL Normal 9.5-13.5 [facility] Comment on above: Performed By: #### C BC #### [facility] [address] [place] [address] Dr. Charlotte Awan PLT 132 103/ul Critically low 150-450 [facility] Comment on above: Performed By: #### C BC #### [facility] [address] [place] [address] Dr. Charlotte Awan RBC 4.28 106/ul Critically low 4.70-6.10 [facility] Comment on above: Performed By: #### C BC #### [facility] [address] [place] [address] Dr. Charlotte Awan WBC 7.0 103/ul Normal 4.0-11.0 [facility] Comment on above: Performed By: #### C BC #### [facility] [address] [place] [address] Dr. Charlotte Awan GLYCOHEMOGLOBIN A1Con 2021 ADA RECOMMENDATION SEE BELOW Normal [facility] Comment on above: Result Comment: ADA RECOMMENDED LIMIT 4.0 - 6.0 ADA THERAPEUTIC TARGET < 7.0 ACTION SUGGESTED > 7.0 Performed By: #### V ITAD, PSASC #### [facility] [address] [address] [address] Charlotte Awan Glucose [Mass/Vol] 114 mg/dL Normal [facility] Comment on above: Performed By: #### V ITSYLVESTER, PSASC #### [facility] [address] [address] [address] Charlotte Awan HbA1c (Bld) [Mass fraction] 5.6 % Normal 4.5-6.2 [facility] Comment on above: Performed By: #### V JUSTIN, PSASC #### [facility] [address] [address] [address] Charlotte Awan LIPID PROFILEon 05-21-2022 CHOL-HDL RATIO NORM SEE BELOW Normal [facility] Comment on above: Result Comment: 3.3 - 4.4 LOW RISK 4.4 - 7.1 AVERAGE RISK 7.1 - 11.0 MODERATE RISK >11.0 HIGH RISK Performed By: #### L IPID, LIVER, BMP #### [facility] [address] [address] [address] Charlotte Awan Cholesterol [Mass/Vol] 110 mg/dL Normal <=200 Th [facility] Comment on above: Performed By: #### L IPID, LIVER, BMP #### [facility] [address] [place] [address] Dr. Charlotte Awan Cholesterol in HDL [Mass/Vol] 50 mg/dL Normal 40-60 [facility] Comment on above: Performed By: #### L IPID, LIVER, BMP #### [facility] [address] [address] [address] Charlotte Awan Cholesterol in LDL [Mass/Vol] 41.0 mg/dL Normal [facility] Comment on above: Performed By: #### L IPID, LIVER, BMP #### [facility] [address] [address] [address] Charlotte Awan Cholesterol.total/Chol esterol in HDL [Mass ratio] 2.2 {ratio} Normal [facility] Comment on above: Performed By: #### L IPID, LIVER, BMP #### [facility] [address] [address] [address] Charlotte Awan HDL NORMAL > or = 60 mg/dl - LO W CARDIOVASCULAR RISK <40 mg/dl - HIGH CARDIOVASCULAR RISK Normal [facility] Comment on above: Performed By: #### L IPID, LIVER, BMP #### [facility] [address] [address] [address] Charlotte Awan LDL CALC NORMAL SEE BELOW Normal [facility] Comment on above: Result Comment: <100 mg/dl OPTIMAL 100 - 129 mg/dl NEAR OR ABOVE OPTIMAL 130 - 159 mg/dl BORDERLINE HIGH 160 - 189 mg/dl HIGH >190 mg/dl VERY HIGH Performed By: #### L IPID, LIVER, BMP #### [facility] [address] [place] [address] Dr. Charlotte Awan Triglyceride [Mass/Vol] 95 mg/dL Normal <=150 [facility] Comment on above: Performed By: #### L IPID, LIVER, BMP #### [facility] [address] [address] [address] Charlotte Awan VLDL CALC 19.0 mg/dL Normal [facility] Comment on above: Performed By: #### L IPID, LIVER, BMP #### [facility] [address] [place] [address] Dr. Charlotte Awan LIVER PROFILEon 05-21-2022 Albumin [Mass/Vol] 2.9 g/dL Critically low 3.4-5.0 Th [facility] Comment on above: Performed By: #### L IPID, LIVER, BMP #### [facility] [address] [place] [address] Dr. Charlotte Awan Albumin/Globulin [Mass ratio] 0.9 {ratio} Normal [facility] Comment on above: Performed By: #### L IPID, LIVER, BMP #### [facility] [address] [place] [address] Dr. Charlotte Awan ALP [Catalytic activity/Vol] 70 U/L Normal 46-116 [facility] Comment on above: Performed By: #### L IPID, LIVER, BMP #### [facility] [address] [place] [address] Dr. Charlotte Awan ALT [Catalytic activity/Vol] 59 U/L Normal 16-63 [facility] Comment on above: Performed By: #### L IPID, LIVER, BMP #### [facility] [address] [address] [address] Charlotte Awan AST [Catalytic activity/Vol] 25 U/L Normal 15-37 [facility] Comment on above: Performed By: #### L IPID, LIVER, BMP #### [facility] [address] [place] [address] Dr. Charlotte Awan BILI, CONJUGATED 0.1 mg/dL Normal 0.0-0.2 [facility] Comment on above: Performed By: #### L IPID, LIVER, BMP #### [facility] [address] [place] [address] Dr. Charlotte Awan Bilirubin [Mass/Vol] 0.3 mg/dL Normal 0.2-1.0 [facility] Comment on above: Performed By: #### L IPID, LIVER, BMP #### [facility] [address] [place] [address] Dr. Charlotte Awan Globulin (S) [Mass/Vol] 3.3 g/dL Normal [facility] Comment on above: Performed By: #### L IPID, LIVER, BMP #### [facility] [address] [place] [address] Dr. Charlotte Awan Protein [Mass/Vol] 6.2 g/dL Critically low 6.4-8.2 Th [facility] Comment on above: Performed By: #### L IPID, LIVER, BMP #### [facility] [address] [place] [address] Dr. Charlotte Awan MICROALBUMIN, RAND URon 11-0 mALB 17.7 mg/L Normal <=30.0 [facility] Comment on above: Performed By: #### M ALBR #### [facility] [address] [place] [address] Dr. Charlotte Awan PROF CHEM 8 (BAS METB)on Anion gap [Moles/Vol] 9.9 mmol/L Normal [facility] Comment on above: Performed By: #### L IPID, LIVER, BMP #### [facility] [address] [address] [address] Charlotte Awan Calcium [Mass/Vol] 9.3 mg/dL Normal 8.5-10.1 [facility] Comment on above: Performed By: #### L IPID, LIVER, BMP #### [facility] [address] [address] [address] Charlotte Awan Chloride [Moles/Vol] 108 mmol/L Critically high 98-107 [facility] Comment on above: Performed By: #### L IPID, LIVER, BMP #### [facility] [address] [place] [address] Dr. Charlotte Awan CO2 [Moles/Vol] 26.1 mmol/L Normal 21.0-32.0 [facility] Comment on above: Performed By: #### L IPID, LIVER, BMP #### [facility] [address] [place] [address] Dr. Charlotte Awan Creatinine [Mass/Vol] 1.10 mg/dL Normal 0.70-1.30 [facility] Comment on above: Performed By: #### L IPID, LIVER, BMP #### [facility] [address] [place] [address] Dr. Charlotte Awan EGFR-AF ESTONIAN >60 Normal >=60 [facility] Comment on above: Performed By: #### L IPID, LIVER, BMP #### [facility] [address] [place] [address] Dr. Charlotte Awan EGFR-NON AF ESTONIAN >60 Normal >=60 [facility] Comment on above: Performed By: #### L IPID, LIVER, BMP #### [facility] [address] [place] [address] Dr. Charlotte Awan Glucose [Mass/Vol] 120 mg/dL Critically high 74-106 [facility] Comment on above: Performed By: #### L IPID, LIVER, BMP #### [facility] [address] [place] [address] Dr. Charlotte Awan Potassium [Moles/Vol] 4.0 mmol/L Normal 3.5-5.1 [facility] Comment on above: Performed By: #### L IPID, LIVER, BMP #### [facility] [address] [address] [address] Charlotte Awan Sodium [Moles/Vol] 140 mmol/L Normal 136-145 [facility] Comment on above: Performed By: #### L IPID, LIVER, BMP #### [facility] [address] [address] [address] Charlotte Awan Urea nitrogen [Mass/Vol] 21.0 mg/dL Critically high 7.0-18.0 [facility] Comment on above: Performed By: #### L IPID, LIVER, BMP #### [facility] [address] [place] [address] Dr. Charlotte Awan Urea nitrogen/Creatinine [Mass ratio] 19.1 mg/mg Normal [facility] Comment on above: Performed By: #### L IPID, LIVER, BMP #### [facility] [address] [place] [address] Dr. Charlotte Awan VITAMIN D 25 OHon 05-21-2022 VIT D 25-OH 17.9 ng/mL Normal [facility] Comment on above: Performed By: #### V JUSTIN, PSASC #### [facility] [address] [place] [address] Dr. Charlotte Awan VIT D RANGES SEE BELOW Normal [facility] Comment on above: Result Comment: <20 ng/mL Vit D deficient 20 - <30 ng/mL Vit D insufficient 30 - 100 ng/mL Vit D sufficient >100 ng/mL Potential Toxicity Performed By: #### V ITSYLVESTER, PSASC #### [facility] [address] [address] [address] Charlotte Awan Creatinine and Glomerular fi ltration rate.predicted panel (S/P/Bld)Ordered By: Tani Vargas on 05-20-2022 Creatinine [Mass/Vol] 1.21 mg/dL 0.64-1.27 [facility] Estimated glomerular filtrat ion rate (GFR) non- AmericanOrdered By: Tani Vargas on 05-20-2022 GFR/1.73 sq M.predicted among non-blacks MDRD (S/P/Bld) [Vol rate/Area] 59 mL/Min [facility] No Panel InformationOrdered By: Tani Vargas on 05-20-2022 Estimated GFR () > 60 mL/Min [facility] Comment on above: GFR estimated refere nce range: According to KDOQI guidelines, <60 ml/min/1.73m2 is sufficient to diagnose a patient with chronic kidney disease. Pharmacy Creatinine Clearance (Chem 44.91 [facility] Serum or plasma urea nitroge n measurement (mass/volume)Ordered By: Tani Vargas on 05-20-2022 Urea nitrogen [Mass/Vol] 21 mg/dL 04-10 [facility] Albumin [Mass/volume] in Ser um or PlasmaOrdered By: Reji Barrientos on 03-30-2022 Albumin [Mass/Vol] 3.5 g/dL 3.2-5.5 [facility] Basophils Auto (Bld) [#/Vol] Ordered By: Reji Barrientos on 03-30-2022 Basophils (Bld) [#/Vol] 0.2 10*3/uL 0.0-0.2 [facility] Basophils/100 WBC Auto (Bld) Ordered By: Reji Barrientos on 03-30-2022 Basophils/100 WBC (Bld) 1.1 % . [facility] Blood hemoglobin measurement (mass/volume)Ordered By: Reji Barrientos on 03-30-2022 Hemoglobin (Bld) [Mass/Vol] 12.3 g/dL 13.0-17.0 [facility] Blood leukocytes automated c ount (number/volume)Ordered By: Reji Barrientos on 03-30-2022 WBC (Bld) [#/Vol] 14.4 10*3/uL 4.5-11.0 [facility] Creatinine and Glomerular fi ltration rate.predicted panel (S/P/Bld)Ordered By: Reji Barrientos on 03-30-2022 Creatinine [Mass/Vol] 1.09 mg/dL 0.64-1.27 [facility] Direct bilirubin measurement Ordered By: Reji Barrientos on 03-30-2022 Bilirubin.direct [Mass/Vol] mg/dL 0.0-0.4 [facility] Eosinophils Auto (Bld) [#/Vo l]Ordered By: Reji Barrientos on 03-30-2022 Eosinophils (Bld) [#/Vol] 0.6 10*3/uL 0.0-0.45 [facility] Eosinophils/100 WBC Auto (Bl d)Ordered By: Reji Barrientos on 03-30-2022 Eosinophils/100 WBC (Bld) 3.8 % . [facility] Erythrocyte distribution wid th Auto (RBC) [Ratio]Ordered By: Reji Barrientos on 03-30-2022 Erythrocyte distribution width (RBC) [Ratio] 18.0 % 12.0-14.8 [facility] Estimated glomerular filtrat ion rate (GFR) non- AmericanOrdered By: Reji Barrientos on 03-30-2022 GFR/1.73 sq M.predicted among non-blacks MDRD (S/P/Bld) [Vol rate/Area] > 60 mL/Min [facility] Globulin Calc (S) [Mass/Vol] Ordered By: Reji Barrientos on 03-30-2022 Globulin (S) [Mass/Vol] 3.4 g/dL [facility] Glucose Glucometer (BldC) [M ass/Vol]Ordered By: Yemi Silverio on 03-30-2022 Glucose [Mass/Vol] 127 mg/dL [facility] Comment on above: Random Glucose Refer ence Range is dependent on time and content of last meal. Glucose of more than 200 mg/dL in a nonstressed, ambulatory subject supports the diagnosis of Diabetes Mellitus. Hematocrit Auto (Bld) [Volum e fraction]Ordered By: Reji Barrientos on 03-30-2022 Hematocrit (Bld) [Volume fraction] 39.4 % 38.8-50.0 [facility] - Chemistry and C hemistry - challengeOrdered By: Reji Barrientos on 03-30-2022 Lipase [Catalytic activity/Vol] 38.0 U/L 22-51 [facility] - Hematology and Cell countsOrdered By: Reji Barrientos on 03-30-2022 Nucleated RBC/100 WBC (Bld) [Ratio] 0.1 % 0-0.5 [facility] Lymphocytes Auto (Bld) [#/Vo l]Ordered By: Reji Barrientos on 03-30-2022 Lymphocytes (Bld) [#/Vol] 3.9 10*3/uL 1.00-4.8 [facility] Lymphocytes/100 WBC Auto (Bl d)Ordered By: Reji Barrientos on 03-30-2022 Lymphocytes/100 WBC (Bld) 27.1 % . [facility] MCH Auto (RBC) [Entitic mass ]Ordered By: Reji Barrientos on 03-30-2022 MCH (RBC) [Entitic mass] 26.7 pg 27.5-35.2 [facility] MCHC Auto (RBC) [Mass/Vol]Or dered By: Reji Barrientos on 03-30-2022 MCHC (RBC) [Mass/Vol] 31.3 g/dL 32.5-35.6 [facility] MCV Auto (RBC) [Entitic vol] Ordered By: Reji Barrientos on 03-30-2022 MCV (RBC) [Entitic vol] 85.4 fL 83.5-101 [facility] Monocytes Auto (Bld) [#/Vol] Ordered By: Reji Barrientos on 03-30-2022 Monocytes (Bld) [#/Vol] 0.6 10*3/uL 0.0-0.8 [facility] Monocytes/100 WBC Auto (Bld) Ordered By: Reji Barrientos on 03-30-2022 Monocytes/100 WBC (Bld) 4.5 % . [facility] Neutrophils Auto (Bld) [#/Vo l]Ordered By: Reji Barrientos on 03-30-2022 Neutrophils (Bld) [#/Vol] 9.1 10*3/uL 1.8-7.7 [facility] Neutrophils/100 WBC Auto (Bl d)Ordered By: Reji Barrientos on 03-30-2022 Neutrophils/100 WBC (Bld) 63.5 % . [facility] No Panel InformationOrdered By: Yemi Silverio on 03-30-2022 Bedside Glucose Comment Glu2: cleaned meter [facility] No Panel InformationOrdered By: Reji Barrientos on 03-30-2022 Estimated GFR () > 60 mL/Min [facility] Comment on above: GFR estimated refere nce range: According to KDOQI guidelines, <60 ml/min/1.73m2 is sufficient to diagnose a patient with chronic kidney disease. Pharmacy Creatinine Clearance (Chem 49.85 [facility] Platelet mean volume Auto (B ld) [Entitic vol]Ordered By: Reji Barrientos on 03-30-2022 Platelet mean volume (Bld) [Entitic vol] 10.4 fL 6.6-10.1 [facility] Platelets Auto (Bld) [#/Vol] Ordered By: Reji Barrientos on 03-30-2022 Platelets (Bld) [#/Vol] 232 10*3/uL 150-450 [facility] Protein [Mass/volume] in Ser um or PlasmaOrdered By: Reji Barrientos on 03-30-2022 Protein [Mass/Vol] 6.9 g/dL 6.1-7.9 [facility] RBC Auto (Bld) [#/Vol]Ordere d By: Reji Barrientos on 03-30-2022 RBC (Bld) [#/Vol] 4.61 10*6/uL 3.90-5.60 [facility] Serum or plasma alanine jackson otransferase measurement without P-5'-P (enzymatic activiOrdered By: Reji Barrientos on 03-30-2022 ALT No additional P-5'-P [Catalytic activity/Vol] 16 U/L 10-60 [facility] Serum or plasma albumin/glob ulin mass ratioOrdered By: Reji Barrientos on 03-30-2022 Albumin/Globulin [Mass ratio] 1.0 {ratio} [facility] Serum or plasma alkaline rojas sphatase measurement (enzymatic activity/volume)Ordered By: Reji Barrientos on 03-30-2022 ALP [Catalytic activity/Vol] 81 U/L 32-92 [facility] Serum or plasma anion gap de terminationOrdered By: Reji Barrientos on 03-30-2022 Anion gap [Moles/Vol] 16.1 mmol/L 6.0-15.0 [facility] Serum or plasma aspartate am inotransferase measurement (enzymatic activity/volume)Ordered By: Reji Barrientos on 03-30-2022 AST [Catalytic activity/Vol] 19 U/L 10-42 [facility] Serum or plasma calcium charley urement (mass/volume)Ordered By: Reji Barrientos on 03-30-2022 Calcium [Mass/Vol] 10.1 mg/dL 8.2-10.2 [facility] Serum or plasma chloride prem surement (moles/volume)Ordered By: Reji Barrientos on 03-30-2022 Chloride [Moles/Vol] 103 mmol/L 95-114 [facility] Serum or plasma glucose charley urement (mass/volume)Ordered By: Reji Barrientos on 03-30-2022 Glucose [Mass/Vol] 174 mg/dL 70-100 [facility] Comment on above: ADA recommended refe rence range Random Glucose Reference Range is dependent on time and content of last meal. Glucose of more than 200 mg/dL in a nonstressed, ambulatory subject supports the diagnosis of Diabetes Mellitus. ADA recommended refe rence rangeRandom Glucose Reference Range is dependent on time and content of last meal. Glucose of more than 200 mg/dL in a nonstressed, ambulatory subject supports the diagnosis of Diabetes Mellitus. Serum or plasma non-glucuron idated bilirubin measurement (mass/volume)Ordered By: Reji Barrientos on 03-30-2022 Bilirubin.indirect [Mass/Vol] TNP [facility] Comment on above: Test not performed Serum or plasma potassium me asurement (moles/volume)Ordered By: Reji Barrientos on 03-30-2022 Potassium [Moles/Vol] 3.3 mmol/L 3.5-5.1 [facility] Serum or plasma sodium measu rement (moles/volume)Ordered By: Reji Barrientos on 03-30-2022 Sodium [Moles/Vol] 140 mmol/L 136-146 [facility] Serum or plasma total biliru bin measurement (mass/volume)Ordered By: Reji Barrientos on 03-30-2022 Bilirubin [Mass/Vol] 0.6 mg/dL 0.3-1.2 [facility] Serum or plasma total carbon dioxide measurement (moles/volume)Ordered By: Reji Barrientos on 03-30-2022 CO2 [Moles/Vol] 24.2 mmol/L 22.0-30.0 [facility] Serum or plasma urea nitroge n measurement (mass/volume)Ordered By: Reji Barrientos on 03-30-2022 Urea nitrogen [Mass/Vol] 23 mg/dL 9 [facility] Activated partial thrombopla stin time (aPTT) in platelet poor plasma by coagulation aOrdered By: Izzy Connell on 03-16-2022 aPTT Coag (PPP) [Time] 33.2 s 25.1-36.5 [facility] Albumin [Mass/volume] in Ser um or PlasmaOrdered By: Izzy Connell on 03-16-2022 Albumin [Mass/Vol] 3.4 g/dL 3.2-5.5 [facility] Automated erythrocytes count in urine sediment (number/area)Ordered By: Izzy Connell on 03-16-2022 RBC Auto (Urine sed) [#/Area] 1-2 [HPF] 0-4 [facility] Automated leukocytes count i n urine sediment (number/area)Ordered By: Izzy Connell on 03-16-2022 WBC Auto (Urine sed) [#/Area] 0-1 [HPF] 0-4 [facility] Basophils Auto (Bld) [#/Vol] Ordered By: Izzy Connell on 03-16-2022 Basophils (Bld) [#/Vol] 0.1 10*3/uL 0.0-0.2 [facility] Basophils/100 WBC Auto (Bld) Ordered By: Izzy Connell on 03-16-2022 Basophils/100 WBC (Bld) 1.1 % . [facility] Bilirubin Test strip Ql (U)O rdered By: Izzy Connell on 03-16-2022 Bilirubin Ql (U) Negative Negative [facility] Blood hemoglobin measurement (mass/volume)Ordered By: Izzy Connell on 03-16-2022 Hemoglobin (Bld) [Mass/Vol] 11.9 g/dL 13.0-17.0 [facility] Blood leukocytes automated c ount (number/volume)Ordered By: Izzy Connell on 03-16-2022 WBC (Bld) [#/Vol] 8.9 10*3/uL 4.5-11.0 [facility] Color Auto (U)Ordered By: Selvin jennesha Connell on 03-16-2022 Color (U) Yellow Yellow [facility] Creatinine and Glomerular fi ltration rate.predicted panel (S/P/Bld)Ordered By: Izzy Connell on 03-16-2022 Creatinine [Mass/Vol] 0.89 mg/dL 0.64-1.27 [facility] Eosinophils Auto (Bld) [#/Vo l]Ordered By: Izzy Connell on 03-16-2022 Eosinophils (Bld) [#/Vol] 0.4 10*3/uL 0.0-0.45 [facility] Eosinophils/100 WBC Auto (Bl d)Ordered By: Izzy Connell on 03-16-2022 Eosinophils/100 WBC (Bld) 4.8 % . [facility] Erythrocyte distribution wid th Auto (RBC) [Ratio]Ordered By: Izzy Connell on 03-16-2022 Erythrocyte distribution width (RBC) [Ratio] 18.1 % 12.0-14.8 [facility] Estimated glomerular filtrat ion rate (GFR) non- AmericanOrdered By: Izzy Connell on 03-16-2022 GFR/1.73 sq M.predicted among non-blacks MDRD (S/P/Bld) [Vol rate/Area] > 60 mL/Min [facility] Globulin Calc (S) [Mass/Vol] Ordered By: Izzy Connell on 03-16-2022 Globulin (S) [Mass/Vol] 3.1 g/dL [facility] Hematocrit Auto (Bld) [Volum e fraction]Ordered By: Izzy Connell on 03-16-2022 Hematocrit (Bld) [Volume fraction] 37.3 % 38.8-50.0 [facility] Ketones Auto test strip (U) [Mass/Vol]Ordered By: Izzy Connell on 03-16-2022 Ketones (U) [Mass/Vol] Negative Negative [facility] Laboratory - Chemistry and C hemistry - challengeOrdered By: Izzy Connell on 03-16-2022 Lipase [Catalytic activity/Vol] 32.0 U/L 22-51 [facility] - CoagulationOrde red By: Izzy Connell on 03-16-2022 PT Coag (PPP) [Time] 11.7 s 9.0-12.9 [facility] - Hematology and Cell countsOrdered By: Izzy Connell on 03-16-2022 Nucleated RBC/100 WBC (Bld) [Ratio] 0.0 % 0-0.5 [facility] - UrinalysisOrder ed By: Izzy Connell on 03-16-2022 Hyaline casts LM Ql (Urine sed) None seen [LPF] 0-8 [facility] Lymphocytes Auto (Bld) [#/Vo l]Ordered By: Izzy Connell on 03-16-2022 Lymphocytes (Bld) [#/Vol] 2.0 10*3/uL 1.00-4.8 [facility] Lymphocytes/100 WBC Auto (Bl d)Ordered By: Izzy Connell on 03-16-2022 Lymphocytes/100 WBC (Bld) 22.9 % . [facility] MCH Auto (RBC) [Entitic mass ]Ordered By: Izzy Connell on 03-16-2022 MCH (RBC) [Entitic mass] 27.0 pg 27.5-35.2 [facility] MCHC Auto (RBC) [Mass/Vol]Or dered By: Izzy Connell on 03-16-2022 MCHC (RBC) [Mass/Vol] 32.0 g/dL 32.5-35.6 [facility] MCV Auto (RBC) [Entitic vol] Ordered By: Izzy Connell on 03-16-2022 MCV (RBC) [Entitic vol] 84.5 fL 83.5-101 [facility] Monocytes Auto (Bld) [#/Vol] Ordered By: Izzy Connell on 03-16-2022 Monocytes (Bld) [#/Vol] 0.5 10*3/uL 0.0-0.8 [facility] Monocytes/100 WBC Auto (Bld) Ordered By: Izzy Connell on 03-16-2022 Monocytes/100 WBC (Bld) 5.6 % . [facility] Neutrophils Auto (Bld) [#/Vo l]Ordered By: Izzy Connell on 03-16-2022 Neutrophils (Bld) [#/Vol] 5.8 10*3/uL 1.8-7.7 [facility] Neutrophils/100 WBC Auto (Bl d)Ordered By: Izzy Connell on 03-16-2022 Neutrophils/100 WBC (Bld) 65.6 % . [facility] Nitrite Test strip Ql (U)Ord ered By: Izzy Connell on 03-16-2022 Nitrite Ql (U) Negative Negative [facility] No Panel InformationOrdered By: Izzy Connell on 03-16-2022 Estimated GFR () > 60 mL/Min [facility] Comment on above: GFR estimated refere nce range: According to KDOQI guidelines, <60 ml/min/1.73m2 is sufficient to diagnose a patient with chronic kidney disease. Pharmacy Creatinine Clearance (Chem 61.05 [facility] Platelet mean volume Auto (B ld) [Entitic vol]Ordered By: Izzy Connell on 03-16-2022 Platelet mean volume (Bld) [Entitic vol] 10.3 fL 6.6-10.1 [facility] Platelet poor plasma interna tional normalized ratio (INR) by coagulation assay (relatOrdered By: Izzy Connell on 03-16-2022 INR Coag (PPP) [Relative time] 1.0 {INR} [facility] Comment on above: INR Therapeutic Rang e A) Pre- and Peroperative OAT started two weeks before surgery. NOT HIP SURGERY: 1.5 - 2.5 HIP SURGERY: 2 - 3 B) Primary and secondary prevention of venous THROMBOSIS: 2 - 3 C) Active venous thrombosis, pulmonary embolism and prevention of recurrent venous thrombosis: 2 - 3 D) Prevention of arterial thromboembolism including patients with mechanical heart valves: 3 - 4.5 INR Therapeutic Rang e A) Pre- and Peroperative OAT started two weeks before surgery. NOT HIP SURGERY: 1.5 - 2.5 HIP SURGERY: 2 - 3B) Primary and secondary prevention of venous THROMBOSIS: 2 - 3C) Active venous thrombosis, pulmonary embolismand prevention of recurrent venous thrombosis: 2 - 3D) Prevention of arterial thromboembolismincluding patients with mechanical heart valves: 3 - 4.5 Platelets Auto (Bld) [#/Vol] Ordered By: Izzy Connell on 03-16-2022 Platelets (Bld) [#/Vol] 179 10*3/uL 150-450 [facility] Protein Auto test strip (U) [Mass/Vol]Ordered By: Izzy Connell on 03-16-2022 Protein (U) [Mass/Vol] 30 mg/dL Negative [facility] Protein [Mass/volume] in Ser um or PlasmaOrdered By: Izzy Connell on 03-16-2022 Protein [Mass/Vol] 6.5 g/dL 6.1-7.9 [facility] RBC Auto (Bld) [#/Vol]Ordere d By: Izzy Connell on 03-16-2022 RBC (Bld) [#/Vol] 4.41 10*6/uL 3.90-5.60 [facility] Serum or plasma alanine jackson otransferase measurement without P-5'-P (enzymatic activiOrdered By: Izzy Connell on 03-16-2022 ALT No additional P-5'-P [Catalytic activity/Vol] 12 U/L 10-60 [facility] Serum or plasma albumin/glob ulin mass ratioOrdered By: Izzy Connell on 03-16-2022 Albumin/Globulin [Mass ratio] 1.1 {ratio} [facility] Serum or plasma alkaline rojas sphatase measurement (enzymatic activity/volume)Ordered By: Izzy Connell on 03-16-2022 ALP [Catalytic activity/Vol] 74 U/L 32-92 [facility] Serum or plasma anion gap de terminationOrdered By: Izzy Connell on 03-16-2022 Anion gap [Moles/Vol] 11.2 mmol/L 6.0-15.0 [facility] Serum or plasma aspartate am inotransferase measurement (enzymatic activity/volume)Ordered By: Izzy Connell on 03-16-2022 AST [Catalytic activity/Vol] 15 U/L 10-42 [facility] Serum or plasma calcium charley urement (mass/volume)Ordered By: Izzy Connell on 03-16-2022 Calcium [Mass/Vol] 9.5 mg/dL 8.2-10.2 [facility] Serum or plasma chloride prem surement (moles/volume)Ordered By: Izzy Connell on 03-16-2022 Chloride [Moles/Vol] 106 mmol/L 95-114 [facility] Serum or plasma glucose charley urement (mass/volume)Ordered By: Izzy Connell on 03-16-2022 Glucose [Mass/Vol] 148 mg/dL 70-100 [facility] Comment on above: ADA recommended refe rence range Random Glucose Reference Range is dependent on time and content of last meal. Glucose of more than 200 mg/dL in a nonstressed, ambulatory subject supports the diagnosis of Diabetes Mellitus. ADA recommended refe rence rangeRandom Glucose Reference Range is dependent on time and content of last meal. Glucose of more than 200 mg/dL in a nonstressed, ambulatory subject supports the diagnosis of Diabetes Mellitus. Serum or plasma potassium me asurement (moles/volume)Ordered By: Izzy Connell on 03-16-2022 Potassium [Moles/Vol] 3.6 mmol/L 3.5-5.1 [facility] Serum or plasma sodium measu rement (moles/volume)Ordered By: Izzy Connell on 03-16-2022 Sodium [Moles/Vol] 139 mmol/L 136-146 [facility] Serum or plasma total biliru bin measurement (mass/volume)Ordered By: Izzy Connell on 03-16-2022 Bilirubin [Mass/Vol] 0.5 mg/dL 0.3-1.2 [facility] Serum or plasma total carbon dioxide measurement (moles/volume)Ordered By: Izzy Connell on 03-16-2022 CO2 [Moles/Vol] 25.4 mmol/L 22.0-30.0 [facility] Serum or plasma urea nitroge n measurement (mass/volume)Ordered By: Izzy Connell on 03-16-2022 Urea nitrogen [Mass/Vol] 13 mg/dL 9- [facility] Specific gravity Auto test s trip (U) [Rel density]Ordered By: Izzy Connell on 03-16-2022 Specific gravity (U) [Rel density] 1.013 1.001-1.03 0 [facility] Squamous epithelial cells de tection in urine sediment by light microscopyOrdered By: Izzy Connell on 03-16-2022 Epithelial cells.squamous LM Ql (Urine sed) None seen [HPF] 0-2 [facility] Troponin I.cardiac [Mass/vol ume] in Serum or Plasma by High sensitivity methodOrdered By: Izzy Connell on 03-16-2022 Troponin I.cardiac High sensitivity method [Mass/Vol] 11 pg/mL 0-20 [facility] Urine bacteria detection by automated methodOrdered By: Izzy Connell on 03-16-2022 Bacteria Auto Ql (U) None seen None Seen [facility] Urine clarity by refractomet ry automatedOrdered By: Izzy Connell on 03-16-2022 Clarity Refractometry automated (U) Clear Clear [facility] Urine glucose measurement by automated test strip (mass/volume)Ordered By: Izzy Connell on 03-16-2022 Glucose Auto test strip (U) [Mass/Vol] Normal mg/dL Normal [facility] Urine hemoglobin detection b y automated test stripOrdered By: Izzy Connell on 03-16-2022 Hemoglobin Auto test strip Ql (U) Negative Negative [facility] Urine leukocyte esterase det ection by automated test stripOrdered By: Izzy Connell on 03-16-2022 Leukocyte esterase Auto test strip Ql (U) Negative Negative [facility] Urobilinogen Auto test strip (U) [Mass/Vol]Ordered By: Izzy Connell on 03-16-2022 Urobilinogen (U) [Mass/Vol] Normal mg/dL Normal [facility] pH Auto test strip (U)Ordere d By: Izzy Connell on 03-16-2022 pH (U) 7.0 [pH] 5.0-9.0 [facility] COVID-19 Positive/NegativeOr dered By: Yemi Silverio on 02-24-2022 SARS-CoV-2 (COVID-19) N gene GLORIA+probe Ql (Resp) Positive Negative [facility] Comment on above: Positive results katie l only be called to Providers for the following groups of patients: Pre-Surgical Testing, Emergency Room, and Inpatients. Testing for SARS-CoV-2 by RT-PCR This test was developed and its performance characteristics determined by [employer] ([place]) and validated at the [facility]. This test has not been FDA cleared or approved. This test has been authorized by FDA under an Emergency Use Authorization (EUA). This test has been validated in accordance with the FDA's Guidance Document (Policy for Diagnostics Testing in Laboratories Certified to Perform High Complexity Testing under CLIA prior to Emergency Use Authorization for Coronavirus Disease-2019 during the Public Health Emergency) issued on October 19, 2019. This test is only authorized for the duration of time the declaration that circumstances exist justifying the authorization of the emergency use of in vitro diagnostic tests for detection of SARS-CoV-2 virus and/or diagnosis of COVID-19 infection under section 564(b)(1) of the Act, 21 U.S.C. 360bbb-3(b)(1), unless the authorization is terminated or revoked sooner. Positive results katie l only be called to Providers for the following groups of patients: Pre-Surgical Testing, Emergency Room, and Inpatients.Testing for SARS-CoV-2 by RT-PCRThis test was developed and its performance characteristics determined by [employer] ([place]) and validated at the [facility]. This test has not been FDA cleared or approved. This test has been authorized by FDA under an Emergency Use Authorization (EUA). This test has been validated in accordance with the FDA's Guidance Document (Policy for Diagnostics Testing in Laboratories Certified to Perform High Complexity Testing under CLIA prior to Emergency Use Authorization for Coronavirus Disease-2019 during the Public Health Emergency) issued on October 19, 2019. This test is only authorized for the duration of time the declaration that circumstances exist justifying the authorization of the emergency use of in vitro diagnostic tests for detection of SARS-CoV-2 virus and/or diagnosis of COVID-19 infection under section 564(b)(1) of the Act, 21 U.S.C. 360bbb-3(b)(1), unless the authorization is terminated or revoked sooner. Albumin [Mass/volume] in Ser um or PlasmaOrdered By: Reji Barrientos on 02-10-2022 Albumin [Mass/Vol] 3.1 g/dL 3.2-5.5 [facility] Basophils Auto (Bld) [#/Vol] Ordered By: Reji Barrientos on 02-10-2022 Basophils (Bld) [#/Vol] 0.0 10*3/uL 0.0-0.2 [facility] Basophils/100 WBC Auto (Bld) Ordered By: Reji Barrientos on 02-10-2022 Basophils/100 WBC (Bld) 0.3 % . [facility] Blood hemoglobin measurement (mass/volume)Ordered By: Reji Barrientos on 02-10-2022 Hemoglobin (Bld) [Mass/Vol] 12.4 g/dL 13.0-17.0 [facility] Blood leukocytes automated c ount (number/volume)Ordered By: Reji Barrientos on 02-10-2022 WBC (Bld) [#/Vol] 10.9 10*3/uL 4.5-11.0 [facility] COVID-19 Positive/NegativeOr dered By: Reji Barrientos on 02-10-2022 SARS-CoV-2 (COVID-19) N gene GLORIA+probe Ql (Resp) Negative Negative [facility] Comment on above: Testing for SARS-CoV -2 by RT-PCR This test was developed and its performance characteristics determined by [employer] ([employer]) and validated at the [facility]. This test has not been FDA cleared or approved. This test has been authorized by FDA under an Emergency Use Authorization (EUA). This test has been validated in accordance with the FDA's Guidance Document (Policy for Diagnostics Testing in Laboratories Certified to Perform High Complexity Testing under CLIA prior to Emergency Use Authorization for Coronavirus Disease-2019 during the Public Health Emergency) issued on October 19, 2019. This test is only authorized for the duration of time the declaration that circumstances exist justifying the authorization of the emergency use of in vitro diagnostic tests for detection of SARS-CoV-2 virus and/or diagnosis of COVID-19 infection under section 564(b)(1) of the Act, 21 U.S.C. 360bbb-3(b)(1), unless the authorization is terminated or revoked sooner. COVID-19 SOFIAOrdered By: Danilo Barrientos on 02-10-2022 SARS-CoV+SARS-CoV-2 (COVID-19) Ag IA.rapid Ql (Resp) Negative Negative [facility] Comment on above: This is a duplicate Bety SARS Antigen (PRISCA) result to be used for statistical tracking purpose only. Creatinine and Glomerular fi ltration rate.predicted panel (S/P/Bld)Ordered By: Reji Barrientos on 02-10-2022 Creatinine [Mass/Vol] 1.12 mg/dL 0.64-1.27 [facility] Direct bilirubin measurement Ordered By: Reji Barrientos on 02-10-2022 Bilirubin.direct [Mass/Vol] 0.2 mg/dL 0.0-0.4 [facility] Eosinophils Auto (Bld) [#/Vo l]Ordered By: Reji Barrientos on 02-10-2022 Eosinophils (Bld) [#/Vol] 0.6 10*3/uL 0.0-0.45 [facility] Eosinophils/100 WBC Auto (Bl d)Ordered By: Reji Barrientos on 02-10-2022 Eosinophils/100 WBC (Bld) 5.0 % . [facility] Erythrocyte distribution wid th Auto (RBC) [Ratio]Ordered By: Reji Barrientos on 02-10-2022 Erythrocyte distribution width (RBC) [Ratio] 17.3 % 12.0-14.8 [facility] Estimated glomerular filtrat ion rate (GFR) non- AmericanOrdered By: Reji Barrientos on 02-10-2022 GFR/1.73 sq M.predicted among non-blacks MDRD (S/P/Bld) [Vol rate/Area] > 60 mL/Min [facility] Globulin Calc (S) [Mass/Vol] Ordered By: Reji Barrientos on 02-10-2022 Globulin (S) [Mass/Vol] 3.4 g/dL [facility] Hematocrit Auto (Bld) [Volum e fraction]Ordered By: Reji Barrientos on 02-10-2022 Hematocrit (Bld) [Volume fraction] 38.4 % 38.8-50.0 [facility] - Chemistry and C hemistry - challengeOrdered By: Reji Barrientos on 02-10-2022 Lipase [Catalytic activity/Vol] 38.0 U/L 22-51 [facility] - Hematology and Cell countsOrdered By: Reji Barrientos on 02-10-2022 Nucleated RBC/100 WBC (Bld) [Ratio] 0.1 % 0-0.5 [facility] - Microbiology an d Antimicrobial susceptibilityOrdered By: Rjei Barrientos on 02-10-2022 SARS-CoV-2 (COVID-19) RNA GLORIA+probe Ql (Unsp spec) N/A [facility] Lymphocytes Auto (Bld) [#/Vo l]Ordered By: Reji Barrientos on 02-10-2022 Lymphocytes (Bld) [#/Vol] 4.2 10*3/uL 1.00-4.8 [facility] Lymphocytes/100 WBC Auto (Bl d)Ordered By: Reji Barrientos on 02-10-2022 Lymphocytes/100 WBC (Bld) 38.8 % . [facility] MCH Auto (RBC) [Entitic mass ]Ordered By: Reji Barrientos on 02-10-2022 MCH (RBC) [Entitic mass] 26.7 pg 27.5-35.2 [facility] MCHC Auto (RBC) [Mass/Vol]Or dered By: Reji Barrientos on 02-10-2022 MCHC (RBC) [Mass/Vol] 32.4 g/dL 32.5-35.6 [facility] MCV Auto (RBC) [Entitic vol] Ordered By: Reji Barrientos on 02-10-2022 MCV (RBC) [Entitic vol] 82.4 fL 83.5-101 [facility] Monocytes Auto (Bld) [#/Vol] Ordered By: Reji Barrientos on 02-10-2022 Monocytes (Bld) [#/Vol] 0.6 10*3/uL 0.0-0.8 [facility] Monocytes/100 WBC Auto (Bld) Ordered By: Reji Barrientos on 02-10-2022 Monocytes/100 WBC (Bld) 5.9 % . [facility] Neutrophils Auto (Bld) [#/Vo l]Ordered By: Reji Barrientos on 02-10-2022 Neutrophils (Bld) [#/Vol] 5.5 10*3/uL 1.8-7.7 [facility] Neutrophils/100 WBC Auto (Bl d)Ordered By: Reji Barrientos on 02-10-2022 Neutrophils/100 WBC (Bld) 50.0 % . [facility] No Panel InformationOrdered By: Reji Barrientos on 02-10-2022 Estimated GFR () > 60 mL/Min [facility] Comment on above: GFR estimated refere nce range: According to KDOQI guidelines, <60 ml/min/1.73m2 is sufficient to diagnose a patient with chronic kidney disease. Pharmacy Creatinine Clearance (Chem 50.46 [facility] SARS Antigen (LFIA) [facility] Platelet mean volume Auto (B ld) [Entitic vol]Ordered By: Reji Barrientos on 02-10-2022 Platelet mean volume (Bld) [Entitic vol] 9.8 fL 6.6-10.1 [facility] Platelets Auto (Bld) [#/Vol] Ordered By: Reji Barrientos on 02-10-2022 Platelets (Bld) [#/Vol] 240 10*3/uL 150-450 [facility] Protein [Mass/volume] in Ser um or PlasmaOrdered By: Reji Barrientos on 02-10-2022 Protein [Mass/Vol] 6.5 g/dL 6.1-7.9 [facility] RBC Auto (Bld) [#/Vol]Ordere d By: Reji Barrientos on 02-10-2022 RBC (Bld) [#/Vol] 4.66 10*6/uL 3.90-5.60 [facility] Serum or plasma alanine jackson otransferase measurement without P-5'-P (enzymatic activiOrdered By: Reji Barrientos on 02-10-2022 ALT No additional P-5'-P [Catalytic activity/Vol] 11 U/L 10-60 [facility] Serum or plasma albumin/glob ulin mass ratioOrdered By: Reji Barrientos on 02-10-2022 Albumin/Globulin [Mass ratio] 0.9 {ratio} [facility] Serum or plasma alkaline rojas sphatase measurement (enzymatic activity/volume)Ordered By: Reji Barrientos on 02-10-2022 ALP [Catalytic activity/Vol] 87 U/L 32-92 [facility] Serum or plasma aspartate am inotransferase measurement (enzymatic activity/volume)Ordered By: Reji Barrientos on 02-10-2022 AST [Catalytic activity/Vol] 17 U/L 10-42 [facility] Serum or plasma calcium charley urement (mass/volume)Ordered By: Reji Barrientos on 02-10-2022 Calcium [Mass/Vol] 9.7 mg/dL 8.2-10.2 [facility] Serum or plasma chloride prem surement (moles/volume)Ordered By: Reji Barrientos on 02-10-2022 Chloride [Moles/Vol] 105 mmol/L 95-114 [facility] Serum or plasma glucose charley urement (mass/volume)Ordered By: Reji Barrientos on 02-10-2022 Glucose [Mass/Vol] 116 mg/dL 70-100 [facility] Comment on above: ADA recommended refe rence range Random Glucose Reference Range is dependent on time and content of last meal. Glucose of more than 200 mg/dL in a nonstressed, ambulatory subject supports the diagnosis of Diabetes Mellitus. Serum or plasma non-glucuron idated bilirubin measurement (mass/volume)Ordered By: Reji Barrientos on 02-10-2022 Bilirubin.indirect [Mass/Vol] 0.4 mg/dL [facility] Serum or plasma potassium me asurement (moles/volume)Ordered By: Reji Barrientos on 02-10-2022 Potassium [Moles/Vol] 3.7 mmol/L 3.5-5.1 [facility] Serum or plasma sodium measu rement (moles/volume)Ordered By: Reji Barrientos on 02-10-2022 Sodium [Moles/Vol] 139 mmol/L 136-146 [facility] Serum or plasma total biliru bin measurement (mass/volume)Ordered By: Reji Barrientos on 02-10-2022 Bilirubin [Mass/Vol] 0.6 mg/dL 0.3-1.2 [facility] Serum or plasma total carbon dioxide measurement (moles/volume)Ordered By: Reji Barrientos on 02-10-2022 CO2 [Moles/Vol] 24.4 mmol/L 22.0-30.0 [facility] Serum or plasma urea nitroge n measurement (mass/volume)Ordered By: Reji Barrientos on 02-10-2022 Urea nitrogen [Mass/Vol] 15 mg/dL 04-10 [facility] Lab Reportson 01-07-2022 Lab Reports [id number] Normal [facility] Patient Educationon 01-03-20 Patient Education Oncology Prostate Cancer The prostate is a walnut-sized gland that is involved in the production of semen. It is located below a man's bladder, in front of the rectum. Prostate cancer is the abnormal growth of cells in the prostate gland. What are the causes? The exact cause of this condition is not known. What increases the risk? This condition is more likely to develop in men who: ? Are older than age 65. ? Are -Malian. ? Are obese. ? Have a family history of prostate cancer. ? Have a family history of breast cancer. What are the signs or symptoms? Symptoms of this condition include: ? A need to urinate often. ? Weak or interrupted flow of urine. ? Trouble starting or stopping urination. ? Inability to urinate. ? Pain or burning during urination. ? Painful ejaculation. ? Blood in urine or semen. ? Persistent pain or discomfort in the lower back, lower abdomen, hips, or upper thighs. ? Trouble getting an erection. ? Trouble emptying the bladder all the way. How is this diagnosed? This condition can be diagnosed with: ? A digital rectal exam. For this exam, a health care provider inserts a gloved finger into the rectum to feel the prostate gland. ? A blood test called a prostate-specific antigen (PSA) test. ? An imaging test called transrectal ultrasonography. ? A procedure in which a sample of tissue is taken from the prostate and examined under a microscope (prostate biopsy). Once the condition is diagnosed, tests will be done to determine how far the cancer has spread. This is called staging the cancer. Staging may involve imaging tests, such as: ? A bone scan. ? A CT scan. ? A PET scan. ? An MRI. The stages of prostate cancer are as follows: ? Stage I. At this stage, the cancer is found in the prostate only. The cancer is not visible on imaging tests and it is usually found by accident, such as during a prostate surgery. ? Stage II. At this stage, the cancer is more advanced than it is in stage I, but the cancer has not spread outside the prostate. ? Stage III. At this stage, the cancer has spread beyond the outer layer of the prostate to nearby tissues. The cancer may be found in the seminal vesicles, which are near the bladder and the prostate. ? Stage IV. At this stage, the cancer has spread other parts of the body, such as the lymph nodes, bones, bladder, rectum, liver, or lungs. How is this treated? Treatment for this condition depends on several factors, including the stage of the cancer, your age, personal preferences, and your overall health. Talk with your health care provider about treatment options that are recommended for you. Common treatments include: ? Observation for early stage prostate cancer (active surveillance). This involves having exams, blood tests, and in some cases, more biopsies. For some men, this is the only treatment needed. ? Surgery. Types of surgeries include: ? Open surgery. In this surgery, a larger incision is made to remove the prostate. ? A laparoscopic prostatectomy. This is a surgery to remove the prostate and lymph nodes through several, small incisions. It is often referred to as a minimally invasive surgery. ? A robotic prostatectomy. This is a surgery to remove the prostate and lymph nodes with the help of a robotic arm that is controlled by a computer. ? Orchiectomy. This is a surgery to remove the testicles. ? Cryosurgery. This is a surgery to freeze and destroy cancer cells. ? Radiation treatment. Types of radiation treatment include: ? External beam radiation. This type aims beams of radiation from outside the body at the prostate to destroy cancerous cells. ? Brachytherapy. This type uses radioactive needles, seeds, wires, or tubes that are implanted into the prostate gland. Like external beam radiation, brachytherapy destroys cancerous cells. An advantage is that this type of radiation limits the damage to surrounding tissue and has fewer side effects. ? High-intensity, focused ultrasonography. This treatment destroys cancer cells by delivering high-energy ultrasound waves to the cancerous cells. ? Chemotherapy medicines. This treatment kills cancer cells or stops them from multiplying. ? Hormone treatment. This treatment involves taking medicines that act on one of the male hormones (testosterone): ? By stopping your body from producing testosterone. ? By blocking testosterone from reaching cancer cells. Follow these instructions at home: ? Take ofjb-zkc-ozolvyr and prescription medicines only as told by your health care provider. ? Maintain a healthy diet. ? Get plenty of sleep. ? Consider joining a support group for men who have prostate cancer. Meeting with a support group may help you learn to cope with the stress of having cancer. ? Keep all follow-up visits as told by your health care provider. This is important. ? If you have to go to the hospital, notify your cancer specialis (more content not included)... Normal [facility] Urology Office/Clinic Noteon 01-02-2022 Urology Office/Clinic Note Chief Complaint Follow up to MRI HPI Staff Gopal is here today for a 1 year follow up with MRI of prostate done on 11/29/21. Impression showed the prostate gland equals 38.6cc, the PSA density not given, change of TURP, there is a mild nodular enlargement and inhomogenous signal intensity throughout the transition zone most commonly due to begin prostatic hyperplasia, no tumor suspicious regions are identified, this is a PI-RADS 1 classification, there is no evidence of extraprostatic extension or prostate cancer, seminal vesicle invasion or pelvic lymphadenopathy. Previous DX: PROSTATE CANCER ACTIVE SURVEILLANCE G6 (3+3) PSA done on 10/31/20 was 0.39, BPH with urinary obstruction, urge incontinence, weak urinary stream. Pt has tolterodine 2mg on hand but has not taken it. Dysuria: _Denies Incomplete bladder emptying: _Denies Hematuria: _Denies Frequency: _Denies Urgency: _mild to moderate Nocturia: _1x Stream: _good stream Leaking: _occ Post void dripping: _rare Wearing pads/ Depends: _Denies Urge incontinence: _occ Stress incontinence: _Denies Incontinence without Sensory Awareness: _Denies Abdominal pain: _Denies Flank pain: _Denies Sexual complaints: _ History of Present Illness I have reviewed and verified the staff HPI to be accurate for this encounter. Review of Systems PHQ Score Initial Depression Screen Score: 0 ROS - Provider Constitutional: denies weight loss, denies hot flashes. Eyes: denies eye problems. Gastrointestinal: denies nausea, denies vomiting. Cardiovascular: denies chest pain or angina. Integumentary: no dryness Musculoskeletal: denies musculoskeletal symptoms. ENMT: denies otolaryngeal symptoms. Respiratory: no shortness of breath. Heme/Lymph: denies easy bleeding tendency, denies easy bruising tendency. Psychiatric: no confusion, no anxiety. Genitourinary: denies dysuria, denies hematuria, denies discharge, denies urinary frequency, denies urinary hesitancy, denies nocturia, denies incontinence, denies genital sores, denies decreased libido, and denies erectile dysfunction. Physical Exam Vitals & Measurements HR: 68(Peripheral) RR: 16 BP: 109/70 HT: 168.0 cm HT: 168 cm WT: 90.0 kg WT: 90 kg BMI: 31.89 General Appearance: alert, no distress, well nourished, well developed male. Genitourinary: normal scrotum, normal testes, normal urethra, normal epididymis, normal vas deferens/spermatic cord. Flank Pain: none. Bladder: nonpalpable. Prostate: normal prostate, estimated weight 30 gms, no hard nodule observed. Assessment/Plan 1. Prostate CA (C61: Malignant neoplasm of prostate) ACTIVE SURVEILLANCE. Originally dx in 2016, G6 (3+3) x1, 2% involved. Last bx done in 11/2017 was neg. Current PSA drawn on 10/31/2020 w/ a stable level of 0.39. MRI of the Prostate done 11/29/2020 showed PI-RADS1. Educated pt on the importance of getting his PSA every 6 months and office visits. Will draw pt's PSA today in office. If pt has any concerns he can contact our office. Pt understands. 2. BPH with urinary obstruction (N40.1: Benign prostatic hyperplasia with lower urinary tract symptoms) Overall pt states that he is doing well with his urination and does not take his tolterodine 2mg. 3. Urge incontinence (N39.41: Urge incontinence) Mild, intermittent. he will stay off of tolterodine for now. 4. Weak urinary stream (R39.12: Poor urinary stream) Intermittent weak stream w/ occasional intermittency. Follow-up With When Contact Information Reji EPPS MD, RORY In 6 months 07/04/2022 [facility] [address], [place] [address]- [phone] Additional Instructions: PSA, SELVIN Patient Education I, Aislinn Mead, personally scribed for Dr. Epps on 01/02/2022 09:31:49. . Documentation recorded by the scribe, Aislinn Mead, accurately reflects the services(s) I performed and decisions made by me. Problem List/Past Medical History Ongoing Arthritis BPH with urinary obstruction Bronchitis Deafness Depression Esophageal reflux Heart disease Hx of emphysema Hyperlipidemia Hypertension Impotence Migraine headache Myocardial infarction Nephrolithiasis Prostate CA Stroke Urge incontinence Urinary urgency Urination frequency Weak urinary stream Historical No qualifying data Procedure/Surgical History Transrectal biopsy of prostate using ultrasound (US) guidance (11/29/2017), TURP - Transurethral resection of prostate (04/16/2016), Cystoscopy (03/03/2016), Urodynamics (02/27/2016), Colonoscopy, Hemorrhoidectomy. Medications Aspirin 81 mg Tab-Chew, Chewed, Daily Cozaar, Oral, Daily Crestor, Oral, Daily metformin, Oral Paxil, Oral, Daily Plavix, Oral Prilosec, Oral, Daily tolterodine 2 mg Cap-ER, 2 mg= 1 cap(s), Oral, Every other day, 3 refills, Not taking Toprol-XL, Oral, Daily Allergies codeine (Unknown) Social History Tobacco 5-9 cigarett (more content not included)... Normal [facility] Comment on above: Result Comment: Elec tronically Signed By: Reji EPPS MD\.br\Date and Time Signed: 01/02/22 09:34 EDT\.br\Electronically Co-Signed By: Aislinn Mead MA\.br\Date and Time Co-Signed: 01/02/22 09:32 EDT Tobacco Screening.on 022 Adult depression screening assessment [facility]: Fall risk assessment a) No falls within the last year [facility] Jim mendez 250 DO Work Phone: Tobacco use status [facility] a) Yes [facility] Jim mendez 250 DO Work Phone: Tobacco Screening. Yes [facility] mendez 250 DO Work Phone: Vital Signs Date Time Vital Sign Value Performing Clinician Facility 12-06-2024 07:28-0400 Body height 167.6 cm Mk Garcia MD Work Phone: [facility] 12-06-2024 07:28-0400 Body mass index (BMI) [Ratio] 29.38 kg/m2 Mk Garcia MD Work Phone: [facility] 12-06-2024 07:28-0400 Body temperature 97.81 [degF] Mk Garcia MD Work Phone: [facility] 12-06-2024 07:28-0400 Body weight 82.56 kg Mk Garcia MD Work Phone: [facility] 12-06-2024 07:28-0400 Diastolic blood pressure 72 mm[Hg] Mk Garcia MD Work Phone: [facility] 12-06-2024 07:28-0400 Heart rate 77 /min Mk Garcia MD Work Phone: [facility] 12-06-2024 07:28-0400 Respiratory rate 20 /min Mk Garcia MD Work Phone: [facility] 12-06-2024 07:28-0400 SaO2% (BldA) [Mass fraction] 98 % Mk Garcia MD Work Phone: [facility] 12-06-2024 07:28-0400 Systolic blood pressure 128 mm[Hg] Mk Garcia MD Work Phone: [facility] 11-14-2024 10:17-0400 Body height 167.6 cm Deirdre Calles [employer] Work Phone: [facility] 11-14-2024 10:17-0400 Body mass index (BMI) [Ratio] 28.73 kg/m2 Deirdre Calles [employer] Work Phone: [facility] 11-14-2024 10:17-0400 Body weight 80.74 kg Deirdre Calles [employer] Work Phone: [facility] 11-14-2024 10:17-0400 Diastolic blood pressure 80 mm[Hg] Deirdre Calles [employer] Work Phone: [facility] 11-14-2024 10:17-0400 Heart rate 62 /min Deirdre Calles [employer] Work Phone: [facility] 11-14-2024 10:17-0400 Systolic blood pressure 110 mm[Hg] Deirdre Calles [employer] Work Phone: [facility] 08-28-2024 08:59-0500 Body height 170.18 cm [facility] 08-28-2024 08:59-0500 Body mass index (BMI) [Ratio] 25.9 kg/m2 [facility] 08-28-2024 08:59-0500 Body temperature 98.5 [degF] [facility] 08-28-2024 08:59-0500 Body weight 75.29 kg [facility] 08-28-2024 08:59-0500 Diastolic blood pressure 80 mm[Hg] [facility] 08-28-2024 08:59-0500 Heart rate 63 /min [facility] 08-28-2024 08:59-0500 SaO2% (BldA) [Mass fraction] 96 % [facility] 08-28-2024 08:59-0500 Systolic blood pressure 124 mm[Hg] [facility] 05-10-2024 11:18-0400 Body height 165.1 cm Bonifacio Stern DO Work Phone: [facility] 05-10-2024 11:18-0400 Body mass index (BMI) [Ratio] 27.62 kg/m2 Bonifacio Stern DO Work Phone: [facility] 05-10-2024 11:18-0400 Body weight 75.3 kg Bonifacio Stern DO Work Phone: [facility] 05-10-2024 11:18-0400 Diastolic blood pressure 90 mm[Hg] Bonifacio Stern DO Work Phone: [facility] 05-10-2024 11:18-0400 Heart rate 60 /min Bonifacio Stern DO Work Phone: [facility] 05-10-2024 11:18-0400 Systolic blood pressure 142 mm[Hg] Bonifacio Stern DO Work Phone: [facility] 04-11-2024 14:13-0400 Body height 167.6 cm Mk Garcia MD Work Phone: [facility] 04-11-2024 14:13-0400 Body mass index (BMI) [Ratio] 26.79 kg/m2 Mk Garcia MD Work Phone: [facility] 04-11-2024 14:13-0400 Body temperature 97.5 [degF] Mk Garcia MD Work Phone: [facility] 04-11-2024 14:13-0400 Body weight 75.3 kg Mk Garcia MD Work Phone: [facility] 04-11-2024 14:13-0400 Diastolic blood pressure 56 mm[Hg] Mk Garcia MD Work Phone: [facility] 04-11-2024 14:13-0400 Heart rate 74 /min Mk Garcia MD Work Phone: [facility] 04-11-2024 14:13-0400 Respiratory rate 16 /min Mk Garcia MD Work Phone: [facility] 04-11-2024 14:13-0400 SaO2% (BldA) [Mass fraction] 97 % Mk Garcia MD Work Phone: [facility] 04-11-2024 14:13-0400 Systolic blood pressure 100 mm[Hg] Mk Garcia MD Work Phone: [facility] 03-14-2024 14:47-0400 Body temperature 97.7 [degF] kM Garcia MD Work Phone: [facility] 03-14-2024 14:47-0400 Diastolic blood pressure 62 mm[Hg] Mk Garcia MD Work Phone: [facility] 03-14-2024 14:47-0400 Heart rate 72 /min Mk Garcia MD Work Phone: [facility] 03-14-2024 14:47-0400 SaO2% (BldA) [Mass fraction] 99 % Mk Garcia MD Work Phone: [facility] 03-14-2024 14:47-0400 Systolic blood pressure 102 mm[Hg] Mk Garcia MD Work Phone: [facility] 01-19-2024 11:45-0400 Diastolic blood pressure 55 mm[Hg] MD Mk Garcia Work Phone: [facility] 01-19-2024 11:45-0400 Heart rate 52 /min MD Mk Garcia Work Phone: [facility] 01-19-2024 11:45-0400 Respiratory rate 18 /min MD Mk Garcia Work Phone: [facility] 01-19-2024 11:45-0400 SaO2% (BldA) [Mass fraction] 100 % MD Mk Garcia Work Phone: [facility] 01-19-2024 11:45-0400 Systolic blood pressure 106 mm[Hg] MD Mk Garcia Work Phone: [facility] 01-19-2024 10:25-0400 Body height 167.64 cm MD Mk Garcia Work Phone: [facility] 01-19-2024 10:25-0400 Body weight 72.57 kg MD Mk Garcia Work Phone: [facility] 2023 [id number] Body height 165.1 cm Bonifacio Stern DO Work Phone: [facility] 2023 11:17-0400 Body mass index (BMI) [Ratio] 27.79 kg/m2 Bonifacio Stern DO Work Phone: [facility] 2023 [id number] Body weight 75.75 kg Bonifacio Stern DO Work Phone: [facility] 2023 11:17-0400 Diastolic blood pressure 74 mm[Hg] Bonifacio Stern DO Work Phone: [facility] 2023 11:17-0400 Heart rate 60 /min Bonifacio Stern DO Work Phone: [facility] 2023 11:17-0400 Systolic blood pressure 124 mm[Hg] Bonifacio Stern DO Work Phone: [facility] 09-01-2023 10:37-0500 Body height 167.6 cm Mk Garcia MD Work Phone: [facility] 09-01-2023 10:37-0500 Body mass index (BMI) [Ratio] 25.34 kg/m2 Mk Garcia MD Work Phone: [facility] 09-01-2023 10:37-0500 Body temperature 98.01 [degF] Mk Garcia MD Work Phone: [facility] 09-01-2023 10:37-0500 Body weight 71.22 kg Mk Garcia MD Work Phone: [facility] 09-01-2023 10:37-0500 Diastolic blood pressure 80 mm[Hg] Mk Garcia MD Work Phone: [facility] 09-01-2023 10:37-0500 Heart rate 52 /min Mk Garcia MD Work Phone: [facility] 09-01-2023 10:37-0500 SaO2% (BldA) [Mass fraction] 99 % Mk Garcia MD Work Phone: [facility] 09-01-2023 10:37-0500 Systolic blood pressure 130 mm[Hg] Mk Garcia MD Work Phone: [facility] 07-08-2023 11:50-0500 Body temperature 97.8 [degF] MD Mk Garcia Work Phone: [facility] 07-08-2023 11:50-0500 Diastolic blood pressure 78 mm[Hg] MD Mk Garcia Work Phone: [facility] 07-08-2023 11:50-0500 Heart rate 57 /min MD Mk Garcia Work Phone: [facility] 07-08-2023 11:50-0500 Respiratory rate 16 /min MD Mk Garcia Work Phone: [facility] 07-08-2023 11:50-0500 SaO2% (BldA) [Mass fraction] 96 % MD Mk Garcia Work Phone: [facility] 07-08-2023 11:50-0500 Systolic blood pressure 152 mm[Hg] MD Mk Garcia Work Phone: [facility] 07-08-2023 05:17-0500 Body weight 63.8 kg MD Mk Garcia Work Phone: [facility] 07-07-2023 12:21-0500 Body height 182.88 cm MD Mk Garcia Work Phone: [facility] 06-21-2023 11:30-0500 Body height 167.64 cm Maryann Casillas Other [employer] Other 06-21-2023 11:30-0500 Body mass index (BMI) [Ratio] 22.59 kg/m2 Maryann Casillas Other [employer] Other 06-21-2023 11:30-0500 Body temperature 97.7 [degF] Maryann Casillas Other [employer] Other 06-21-2023 11:30-0500 Body weight 63.5 kg Maryann Casillas Other [employer] Other 06-21-2023 11:30-0500 Diastolic blood pressure 80 mm[Hg] Maryann Casillas Other [employer] Other 06-21-2023 11:30-0500 SaO2% (BldA) [Mass fraction] 98 % Maryann Casillas Other [employer] Other 06-21-2023 11:30-0500 Systolic blood pressure 128 mm[Hg] Maryann Casillas Other [employer] Other 04-02-2023 18:21-0400 Heart rate 53 /min MD Mk Garcia Work Phone: [facility] 04-02-2023 17:52-0400 Body height 167.64 cm MD Mk Garcia Work Phone: [facility] 04-02-2023 17:52-0400 Body temperature 98.7 [degF] MD Mk Garcia Work Phone: [facility] 04-02-2023 17:52-0400 Body weight 61.23 kg MD Mk Garcia Work Phone: [facility] 04-02-2023 17:52-0400 Diastolic blood pressure 86 mm[Hg] MD Mk Naderer Work Phone: [facility] 04-02-2023 17:52-0400 Respiratory rate 19 /min MD Mk Garcia Work Phone: [facility] 04-02-2023 17:52-0400 SaO2% (BldA) [Mass fraction] 100 % MD Mk Garcia Work Phone: [facility] 04-02-2023 17:52-0400 Systolic blood pressure 158 mm[Hg] MD Mk Garcia Work Phone: [facility] 03-03-2023 12:09-0400 Body height 167.64 cm Mk Tom Doeerer Work Phone: [facility] DO Work Phone: 03-03-2023 12:09-0400 Body mass index (BMI) [Ratio] 21.95 kg/m2 Mk Santos Nadererer Work Phone: [facility] DO Work Phone: 03-03-2023 12:09-0400 Body surface area Derived from formula 1.7 m2 Mk Doeerer Work Phone: [facility] DO Work Phone: 03-03-2023 12:09-0400 Body weight 61.69 kg Mk Tom Doeerer Work Phone: [facility] DO Work Phone: 03-03-2023 12:09-0400 Diastolic blood pressure 92 mm[Hg] Mk Santos Naderer Work Phone: [facility] DO Work Phone: 03-03-2023 12:09-0400 Heart rate 66 /min Mk Santos Nadererer Work Phone: [facility] DO Work Phone: 03-03-2023 12:09-0400 Systolic blood pressure 184 mm[Hg] Mk Santos Naderer Work Phone: [facility] DO Work Phone: 12-17-2022 08:02-0400 Body height 167.4 cm Alyssia Weber MD Work Phone: [facility] 12-17-2022 08:02-0400 Body mass index (BMI) [Ratio] 20.27 kg/m2 Alyssia Weber MD Work Phone: [facility] 12-17-2022 [id number] Body weight 56.8 kg Alyssia Weber MD Work Phone: [facility] 11-19-2022 13:07-0400 Body temperature 96.9 [degF] Mk Santos Naderer Work Phone: [facility] Work Phone: 10-13-2022 13:11-0400 Body height 167.64 cm Mk Santos Naderer Work Phone: [facility] Work Phone: 10-13-2022 13:11-0400 Body mass index (BMI) [Ratio] 21.18 kg/m2 Mk A Naderer Work Phone: [facility] Work Phone: 10-13-2022 13:11-0400 Body surface area Derived from formula 1.67 m2 Mk A Naderer Work Phone: [facility] Work Phone: 10-13-2022 13:11-0400 Body temperature 97.1 [degF] Mk A Naderer Work Phone: [facility] Work Phone: 10-13-2022 13:11-0400 Body weight 59.54 kg Mk A Naderer Work Phone: [facility] Work Phone: 10-13-2022 13:11-0400 Diastolic blood pressure 96 mm[Hg] Mk A Naderer Work Phone: [facility] Work Phone: 10-13-2022 13:11-0400 Heart rate 56 /min Mk A Naderer Work Phone: [facility] Work Phone: 10-13-2022 13:11-0400 Respiratory rate 16 /min Mk A Naderer Work Phone: [facility] Work Phone: 10-13-2022 13:11-0400 SaO2% (BldA) [Mass fraction] 99 % Mk Santos Naderer Work Phone: [facility] Work Phone: 10-13-2022 13:11-0400 Systolic blood pressure 151 mm[Hg] Mk Tom Naderer Work Phone: [facility] Work Phone: 10-08-2022 14:00-0400 Body temperature 97.88 [degF] Mk Doeeredada Other Phone: [facility] 10-08-2022 14:00-0400 Diastolic blood pressure 60 mm[Hg] Mk Doeerer Other Phone: [facility] 10-08-2022 14:00-0400 Heart rate 60 /min Mk Doeeredada Other Phone: [facility] 10-08-2022 14:00-0400 Respiratory rate 16 /min Mk Doeeredada Other Phone: [facility] 10-08-2022 14:00-0400 SaO2% (BldA) [Mass fraction] 98 % Mk Garcia Other Phone: [facility] 10-08-2022 14:00-0400 Systolic blood pressure 131 mm[Hg] Mk Garcia Other Phone: [facility] 10-08-2022 09:00-0400 Body weight 58 kg Mk Garcia Other Phone: [facility] 10-03-2022 22:52-0400 Heart rate 54 /min MD Mk Garcia Work Phone: [facility] 10-03-2022 22:00-0400 Diastolic blood pressure 72 mm[Hg] MD Mk Garcia Work Phone: [facility] 10-03-2022 22:00-0400 Respiratory rate 18 /min MD Mk Garcia Work Phone: [facility] 10-03-2022 22:00-0400 SaO2% (BldA) [Mass fraction] 98 % MD Mk Garcia Work Phone: [facility] 10-03-2022 22:00-0400 Systolic blood pressure 170 mm[Hg] MD Mk Garcia Work Phone: [facility] 10-03-2022 19:31-0400 Body height 167.64 cm MD Mk Garcia Work Phone: [facility] 10-03-2022 19:31-0400 Body weight 56.69 kg MD Mk Garcia Work Phone: [facility] 10-03-2022 19:30-0400 Body temperature 97.6 [degF] MD Mk Garcia Work Phone: [facility] 09-29-2022 10:59-0400 Diastolic blood pressure 85 mm[Hg] MD Mk Garcia Work Phone: [facility] 09-29-2022 10:59-0400 Heart rate 57 /min MD Mk Garcia Work Phone: [facility] 09-29-2022 10:59-0400 Respiratory rate 16 /min MD Mk Garcia Work Phone: [facility] 09-29-2022 10:59-0400 SaO2% (BldA) [Mass fraction] 99 % MD Mk Garcia Work Phone: [facility] 09-29-2022 10:59-0400 Systolic blood pressure 165 mm[Hg] MD Mk Garcia Work Phone: [facility] 09-29-2022 08:05-0400 Body temperature 97.4 [degF] MD Mk Garcia Work Phone: [facility] 09-29-2022 03:43-0400 Body weight 59.5 kg MD Mk Garcia Work Phone: [facility] 09-28-2022 16:29-0400 Body height 167.64 cm MD Mk Garcia Work Phone: [facility] 09-28-2022 09:32-0400 60 1 Mk Garcia Work Phone: [facility] Work Phone: Comment on above: [id number] 07-23-2022 12:18-0500 Body height 167.64 cm Mk Garcia Work Phone: [facility] 250 DO Work Phone: 07-23-2022 12:18-0500 Body mass index (BMI) [Ratio] 20.5 kg/m2 Mk Garcia Work Phone: [facility] DO Work Phone: 07-23-2022 12:18-0500 Body surface area Derived from formula 1.65 m2 Mk Garcia Work Phone: [facility] DO Work Phone: 07-23-2022 12:18-0500 Body weight 57.61 kg Mk Santos Naderer Work Phone: [facility] DO Work Phone: 07-23-2022 12:18-0500 Diastolic blood pressure 80 mm[Hg] Mk Doeerer Work Phone: [facility] DO Work Phone: 07-23-2022 12:18-0500 Heart rate 64 /min Mk Doeerer Work Phone: [facility] DO Work Phone: 07-23-2022 12:18-0500 Systolic blood pressure 134 mm[Hg] Mk Doeerer Work Phone: [facility] DO Work Phone: 05-27-2022 13:25-0500 Diastolic blood pressure 66 mm[Hg] MD Mk Garcia Work Phone: [facility] 05-27-2022 13:25-0500 Heart rate 56 /min MD Mk Garcia Work Phone: [facility] 05-27-2022 13:25-0500 Respiratory rate 16 /min MD Mk Garcia Work Phone: [facility] 05-27-2022 13:25-0500 SaO2% (BldA) [Mass fraction] 98 % MD Mk Garcai Work Phone: [facility] 05-27-2022 13:25-0500 Systolic blood pressure 129 mm[Hg] MD Mk Garcia Work Phone: [facility] 05-27-2022 09:40-0500 Inhaled oxygen flow rate 2 L/min MD Mk Garcia Work Phone: [facility] 05-27-2022 08:51-0500 Body height 167.64 cm MD Mk Garcia Work Phone: [facility] 05-27-2022 08:51-0500 Body weight 54.43 kg MD Mk Garcia Work Phone: [facility] 05-26-2022 14:30-0500 Body height 167.64 cm Maryann Kearnsnicoleo Other [employer] Other 05-26-2022 14:30-0500 Body mass index (BMI) [Ratio] 20.17 kg/m2 Maryann Kearnsnicoleo Other [employer] Other 05-26-2022 14:30-0500 Body temperature 97.7 [degF] Maryann Kearnsnicoleo Other [employer] Other 05-26-2022 14:30-0500 Body weight 56.7 kg Maryann Lamaro Other [employer] Other 05-26-2022 14:30-0500 Diastolic blood pressure 64 mm[Hg] Maryann Kearnsnicoleo Other [employer] Other 05-26-2022 14:30-0500 SaO2% (BldA) [Mass fraction] 98 % Maryann Kearnstino Other [employer] Other 05-26-2022 14:30-0500 Systolic blood pressure 112 mm[Hg] Maryann Kearnstino Other [employer] Other 05-20-2022 12:00-0400 Body height 167.64 cm MD kM Garcia Work Phone: [facility] 05-20-2022 12:00-0400 Body weight 56.69 kg MD Mk Gracia Work Phone: [facility] 05-20-2022 12:00-0400 Diastolic blood pressure 80 mm[Hg] MD Mk Garcia Work Phone: [facility] 05-20-2022 12:00-0400 Heart rate 57 /min MD Mk Garcia Work Phone: [facility] 05-20-2022 12:00-0400 Respiratory rate 20 /min MD Mk Garcia Work Phone: [facility] 05-20-2022 12:00-0400 SaO2% (BldA) [Mass fraction] 100 % MD Mk Garcia Work Phone: [facility] 05-20-2022 12:00-0400 Systolic blood pressure 118 mm[Hg] MD Mk Garcia Work Phone: [facility] 03-30-2022 14:09-0400 Diastolic blood pressure 75 mm[Hg] MD Mk Garcia Work Phone: [facility] 03-30-2022 14:09-0400 Heart rate 64 /min MD Mk Garcia Work Phone: [facility] 03-30-2022 14:09-0400 Respiratory rate 16 /min MD Mk Garcia Work Phone: [facility] 03-30-2022 14:09-0400 SaO2% (BldA) [Mass fraction] 99 % MD Mk Garcia Work Phone: [facility] 03-30-2022 14:09-0400 Systolic blood pressure 138 mm[Hg] MD Mk Garcia Work Phone: [facility] 03-30-2022 13:10-0400 Body height 167.64 cm MD Mk Garcia Work Phone: [facility] 03-30-2022 13:10-0400 Body temperature 97.9 [degF] MD Mk Garcia Work Phone: [facility] 03-30-2022 13:10-0400 Body weight 56.69 kg MD Mk Garcia Work Phone: [facility] 03-30-2022 12:19-0400 Body temperature 98.1 [degF] MD Mk Garcia Work Phone: [facility] 03-30-2022 12:19-0400 Diastolic blood pressure 98 mm[Hg] MD Mk Garcia Work Phone: [facility] 03-30-2022 12:19-0400 Heart rate 76 /min MD Mk Garcia Work Phone: [facility] 03-30-2022 12:19-0400 Respiratory rate 18 /min MD Mk Garcia Work Phone: [facility] 03-30-2022 12:19-0400 SaO2% (BldA) [Mass fraction] 96 % MD Mk Garcia Work Phone: [facility] 03-30-2022 12:19-0400 Systolic blood pressure 199 mm[Hg] MD Mk Garcia Work Phone: [facility] 03-30-2022 08:20-0400 Body height 167.64 cm MD Mk Garcia Work Phone: [facility] 03-30-2022 08:20-0400 Body weight 56.69 kg MD Mk Garcia Work Phone: [facility] 03-16-2022 16:41-0400 Diastolic blood pressure 70 mm[Hg] MD Mk Garcia Work Phone: [facility] 03-16-2022 16:41-0400 Heart rate 55 /min MD Mk Garcia Work Phone: [facility] 03-16-2022 16:41-0400 Respiratory rate 16 /min MD Mk Garcia Work Phone: [facility] 03-16-2022 16:41-0400 SaO2% (BldA) [Mass fraction] 97 % MD Mk Garcia Work Phone: [facility] 03-16-2022 16:41-0400 Systolic blood pressure 152 mm[Hg] MD Mk Garcia Work Phone: [facility] 03-16-2022 13:10-0400 Body height 167.64 cm MD Mk Garcia Work Phone: [facility] 03-16-2022 13:10-0400 Body temperature 97.6 [degF] MD Mk Garcia Work Phone: [facility] 03-16-2022 13:10-0400 Body weight 56.69 kg MD Mk Garcia Work Phone: [facility] 02-17-2022 14:15-0400 Body height 167.64 cm Tani Vargas Other [employer] [facility] [employer] Other 02-17-2022 14:15-0400 Body mass index (BMI) [Ratio] 24.21 kg/m2 Tani Vargas Other [employer] Other 02-17-2022 14:15-0400 Body temperature 97.5 [degF] Tani Vargas Other [employer] Other 02-17-2022 14:15-0400 Body weight 68.04 kg Tani Vargas Other [employer] Other 02-17-2022 14:15-0400 Diastolic blood pressure 72 mm[Hg] Tani Vargas Other [employer] Other 02-17-2022 14:15-0400 SaO2% (BldA) [Mass fraction] 98 % Tani Youngtami Other [facility] [employer] Other 02-17-2022 14:15-0400 Systolic blood pressure 118 mm[Hg] Tani Youngtami Other [facility] [employer] Other 02-10-2022 15:00-0400 Diastolic blood pressure 71 mm[Hg] MD Mk Garcia Work Phone: [facility] 02-10-2022 15:00-0400 Heart rate 64 /min MD Mk Garcia Work Phone: [facility] 02-10-2022 15:00-0400 Respiratory rate 20 /min MD Mk Garcia Work Phone: [facility] 02-10-2022 15:00-0400 SaO2% (BldA) [Mass fraction] 100 % MD Mk Garcia Work Phone: [facility] 02-10-2022 15:00-0400 Systolic blood pressure 136 mm[Hg] MD Mk Garcia Work Phone: [facility] 02-10-2022 11:46-0400 Body height 167.64 cm MD Mk Garcia Work Phone: [facility] 02-10-2022 11:46-0400 Body temperature 97.7 [degF] MD Mk Garcia Work Phone: [facility] 02-10-2022 11:46-0400 Body weight 58.96 kg MD Mk Garcia Work Phone: [facility] 01-02-2022 09:01-0400 Blood Pressure Location Reji MICH [facility] 01-02-2022 09:01-0400 Diastolic blood pressure 70 mm[Hg] Reji EPPS [facility] 01-02-2022 09:01-0400 Heart rate 68 /min Reji EPPS [facility] 01-02-2022 09:01-0400 Respiratory rate 16 /min Reji EPPS [facility] 01-02-2022 09:01-0400 Systolic blood pressure 109 mm[Hg] Reji EPPS [facility] 10-15-2021 12:05-0400 Body height 167.64 cm Mk A Naderer Work Phone: [facility] DO Work Phone: 10-15-2021 12:05-0400 Diastolic blood pressure 69 mm[Hg] Mk A Naderer Work Phone: [facility] DO Work Phone: 10-15-2021 12:05-0400 Heart rate 68 /min Mk A Naderer Work Phone: [facility] DO Work Phone: 10-15-2021 12:05-0400 Systolic blood pressure 94 mm[Hg] Mk A Naderer Work Phone: [facility] DO Work Phone: 09-29-2021 11:15-0400 Body height 167.64 cm Maryann Casillas Other [place] [employer] Other 09-29-2021 11:15-0400 Body mass index (BMI) [Ratio] 24.21 kg/m2 Maryann Casillas Other [employer] Other 09-29-2021 11:15-0400 Body temperature 98.4 [degF] Maryann Casillas Other [employer] Other 09-29-2021 11:15-0400 Body weight 68.04 kg Maryann Casillas Other [employer] Other 09-29-2021 11:15-0400 Diastolic blood pressure 80 mm[Hg] Maryann Casillas Other [employer] Other 09-29-2021 11:15-0400 Respiratory rate 18 /min Maryann Casillas Other [employer] Other 09-29-2021 11:15-0400 SaO2% (BldA) [Mass fraction] 99 % Maryann Casillas Other [employer] Other 09-29-2021 11:15-0400 Systolic blood pressure 138 mm[Hg] Maryann Casillas Other [employer] Other 08-08-2021 12:30-0500 Body height 167.64 cm Tani Vargas Other [employer] Other 08-08-2021 12:30-0500 Body temperature 98.4 [degF] Tani Vargas Other [employer] Other 08-08-2021 12:30-0500 Diastolic blood pressure 84 mm[Hg] Tani Vargas Other [employer] Other 08-08-2021 12:30-0500 Respiratory rate 18 /min Tani Vargas Other [employer] Other 08-08-2021 12:30-0500 SaO2% (BldA) [Mass fraction] 98 % Tani Vargas Other [employer] Other 08-08-2021 12:30-0500 Systolic blood pressure 136 mm[Hg] Tani Vargas Other [employer] Other Encounters Encounter Date Encounter Type Care Provider Facility Start: 12-29-2024 End: 12-29-2024 Clinisync Result Encounter Mk Garcia MD Work Phone: [facility] External Department Unsolicited Start: 12-29-2024 End: 12-29-2024 Clinisync Result Encounter Mk Garcia MD Work Phone: [facility] External [facility] Unsolicited Start: 12-06-2024 End: 12-06-2024 Bamboo flowsheet Mk Garcia MD Work Phone: [facility] Start: 12-06-2024 End: 12-06-2024 Bamboo flowsheet Mk Garcia MD Work Phone: [facility] Start: 12-06-2024 End: 12-06-2024 Office outpatient visit 25 minutes Mk Gracia MD Work Phone: [facility] Comment on above: Type 2 diabetes eric itus with hyperglycemia, without long-term current use of insulin (CMS/HCC) (Primary Dx); Essential hypertension, benign (CMS/HCC); Degeneration of intervertebral disc of lumbar region with discogenic back pain and lower extremity pain; Major depressive disorder, recurrent episode, mild (HCC) (CMS/HCC); Vertigo; Iron deficiency anemia secondary to inadequate dietary iron intake; Encounter for long-term current use of medication; Dyslipidemia (CMS/HCC); Fatigue, unspecified type; Degeneration of cervical intervertebral disc; Type 2 diabetes mellitus with diabetic chronic kidney disease (CMS/HCC); Chronic kidney disease, stage 3a (HCC) (CMS/HCC); Type 2 diabetes mellitus with diabetic cataract (CMS/HCC); Type 2 diabetes mellitus with diabetic peripheral angiopathy without gangrene (CMS/HCC) Start: 12-06-2024 End: 12-06-2024 ambulatory MK GARCIA Not Available Start: 11-20-2024 End: 11-20-2024 Refill Mk Garcia MD Work Phone: [facility] Comment on above: Degeneration of cerv ical intervertebral disc Start: 11-14-2024 End: 11-14-[address] [facility] Amb[facility] Start: 11-14-2024 End: 11-14-2024 Office outpatient visit 25 minutes Deirdre [facility] [employer] Work Phone: [facility] Comment on above: Essential hypertensi on (Primary Dx); Two-vessel coronary artery disease; Type 2 diabetes mellitus without complication, without long-term current use of insulin; Mixed hyperlipidemia; Abdominal aortic aneurysm (AAA), unspecified part, unspecified whether ruptured; BMI 28.0-28.9,adult; Current smoker Start: 10-26-2024 End: 10-26-2024 Refill Mk Garcia MD Work Phone: [facility] Comment on above: Degeneration of cerv ical intervertebral disc Start: 09-04-2024 End: 09-04-2024 Refill Mk Garcia MD Work Phone: [facility] Comment on above: Degeneration of cerv ical intervertebral disc; Essential hypertension, benign ([facility]/HCC) Start: 08-28-2024 End: 08-28-2024 Patient encounter procedure [facility] S[facility] Work Phone: Start: 08-28-2024 End: 08-28-2024 ambulatory Mk Garcia [facility] Work Phone: Start: 08-01-2024 End: 08-01-2024 Refill Mk Garcia MD Work Phone: [facility] Comment on above: Degeneration of cerv ical intervertebral disc Start: 07-10-2024 End: 07-10-2024 Refill Mk Garcia MD Work Phone: [facility] M Comment on above: Degeneration of cerv ical intervertebral disc Start: 05-31-2024 End: 05-31-2024 Refill Mk Garcia MD Work Phone: [facility] Comment on above: Degeneration of cerv ical intervertebral disc Start: 05-26-2024 End: 05-26-2024 Subsequent hospital visit by physician Camila Antunez Ultras[facility] Comment on above: Choledocholithiasis; Belching; Abdominal discomfort Start: 05-26-2024 End: 05-26-2024 ambulatory [facility] Start: 05-26-2024 End: 05-26-2024 Clinisync Result Encounter Generic External Data Provider [facility] External Department Unsolicited Start: 05-26-2024 End: 05-26-2024 Clinisync Result Encounter Generic External Data Provider [facility] External Department Unsolicited Start: 05-22-2024 End: 05-22-2024 Office outpatient new 45 minutes Sol Rhodes MD Work Phone: [facility] Comment on above: Choledocholithiasis (Primary Dx); Belching; Abdominal discomfort Start: 05-22-2024 End: 05-22-2024 ambulatory [facility] Ambulatory Start: 05-10-2024 End: 05-10-2024 Office outpatient visit 25 minutes Bonifacio Stern DO Work Phone: [facility] Comment on above: Two-vessel coronary artery disease; 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; Status post non-ST elevation myocardial infarction (NSTEMI); PVD (peripheral vascular disease) ([facility]-HCC); Abdominal aortic aneurysm (AAA), unspecified part, unspecified whether ruptured ([facility]-HCC); Mixed hyperlipidemia; Essential hypertension; Type 2 diabetes mellitus without complication, without long-term current use of insulin (Multi); Neuropathy; Chronic obstructive pulmonary disease, unspecified COPD type (Multi); Current smoker; BMI 27.0-27.9,adult Start: 05-10-2024 End: 05-10-2024 ambulatory [facility] Ambulatory Start: 05-01-2024 End: 05-01-2024 Refill Mk Garcia MD Work Phone: [facility] Comment on above: Degeneration of cerv ical intervertebral disc Start: 04-11-2024 End: 04-11-2024 Office outpatient visit 15 minutes Mk Garcia MD Work Phone: [facility] Comment on above: Essential hypertensi on, benign (CMS/HCC) (Primary Dx); Type 2 diabetes mellitus with hyperglycemia, without long-term current use of insulin (CMS/HCC); Type 2 diabetes mellitus with diabetic chronic kidney disease (HCC) (CMS/HCC); Chronic kidney disease, stage 3b (HCC) (CMS/HCC); Type 2 diabetes mellitus with diabetic peripheral angiopathy without gangrene (CMS/HCC) Start: 04-11-2024 End: 04-11-2024 ambulatory MK GARCIA Not Available Start: 04-11-2024 End: 04-11-2024 Bamboo flowsheet Mk Garcia MD Work Phone: [facility] Start: 04-11-2024 End: 04-11-2024 Bamboo flowsheet Mk Garcia MD Work Phone: [facility] Start: 04-06-2024 End: 04-06-2024 Refill Mk Garcia MD Work Phone: [facility] Comment on above: Degeneration of cerv ical intervertebral disc Start: 03-14-2024 End: 03-14-2024 Office outpatient visit 25 minutes Mk Garcia MD Work Phone: [facility] Comment on above: Type 2 diabetes eric itus with hyperglycemia, without long-term current use of insulin (CMS/HCC) (Primary Dx); Essential hypertension, benign (CMS/HCC); Major depressive disorder, recurrent episode, mild (HCC) (CMS/HCC); Stage 3a chronic kidney disease (HCC) (CMS/HCC); DDD (degenerative disc disease), lumbar; Encounter for long-term current use of medication Start: 03-14-2024 End: 03-14-2024 ambulatory MK GARCIA Not Available Start: 03-14-2024 End: 03-14-2024 Bamboo flowsheet Mk Garcia MD Work Phone: [facility] Start: 03-14-2024 End: 03-14-2024 Bamboo flowsheet Mk Garcia MD Work Phone: [facility] Start: 03-14-2024 End: 03-14-2024 Clinisync Result Encounter Mk Garcia MD Work Phone: [facility] External Department Unsolicited Start: 03-06-2024 End: 03-06-2024 Refill Mk Garcia MD Work Phone: [facility] Comment on above: Degeneration of cerv ical intervertebral disc Start: 01-19-2024 Non-patient / Non-visit MD Zayra Garcia Work Phone: [facility] Work Phone: Start: 01-19-2024 End: 01-19-2024 Admission to same day surgery center MD Mk Garcia Work Phone: [facility] Work Phone: Start: 01-19-2024 End: 01-19-2024 ambulatory MD Mk Garcia Work Phone: [facility] Work Phone: Start: 2023 End: 2023 Office outpatient visit 25 minutes Bonifacio Stern DO Work Phone: [facility] Comment on above: Two-vessel coronary artery disease; Status post non-ST elevation myocardial infarction (NSTEMI); Essential hypertension; Mixed hyperlipidemia; Type 2 diabetes mellitus without complication, without long-term current use of insulin (Multi); Abdominal aortic aneurysm (AAA), unspecified part, unspecified whether ruptured ([facility]-HCC); Current smoker; BMI 27.0-27.9,adult Start: 09-01-2023 Mike flowsheet Mk Garcia MD Work Phone: [facility] Start: 09-01-2023 Mike flowsheet Mk Garcia MD Work Phone: [facility] Start: 09-01-2023 End: 09-01-2023 Office outpatient visit 15 minutes Mk Garcia MD Work Phone: [facility] Comment on above: Diarrhea due to drug (Primary Dx) Start: 07-08-2023 End: 07-08-2023 ambulatory Yemi Silverio Other [place] [employer] Other Start: 07-08-2023 Telephone encounter Yemi Silverio [facility] Gastroenter[facility] Start: 07-06-2023 End: 07-08-2023 Evaluation and management of inpatient MD Mk Garcia Work Phone: [facility] [place] [facility] Work Phone: Start: 06-21-2023 Follow-up encounter Maryann Tatum Vascular Surgery Start: 06-21-2023 End: 06-21-2023 ambulatory MD Mk Garcia Work Phone: [facility] Work Phone: Start: 06-21-2023 End: 06-21-2023 Patient encounter procedure MD Mk Garcia Work Phone: [facility]-Ultrasound [facility] Vascular Start: 04-13-2023 Telephone encounter Mk aceves Work Phone: -[facility] DO Work Phone: Start: 04-02-2023 End: 04-02-2023 Emergency department patient visit MD Mk Garcia Work Phone: [facility]-Emergency Room Work Phone: Start: 03-03-2023 Office outpatient ne w 45 minutes Mk Garcia Work Phone: [facility] 250 DO Work Phone: Start: 03-03-[address] Bonifacio Stern Facility: Start: 12-17-2022 End: 12-17-[address] Mk Garcia Facility:37 Start: 12-17-2022 End: 12-17-2022 Subsequent hospital visit by physician Alyssia Weber MD Work Phone: [facility] Comment on above: Other specified comp lication of other internal prosthetic devices, implants and grafts, initial encounter; Essential (primary) hypertension; Chronic obstructive pulmonary disease, unspecified (CMS/HCC); Type 2 diabetes mellitus without complications (CMS/HCC); Iron deficiency anemia, unspecified; ferry terminal agent (current) use of aspirin; alf (current) use of oral hypoglycemic drugs; Encounter for fitting and adjustment of other gastrointestinal appliance and device Start: 11-19-2022 Tobacco use cessatio n intensive >10 minutes Mk Garcia Work Phone: [facility] 450 Work Phone: Start: 11-19-2022 ambulatory HUMPHREY Lazaroi ty:[id number] Start: 11-11-2022 End: 11-12-[address] Franky Mattson Facility:[id number] Start: 10-28-2022 End: 10-28-2022 Patient encounter procedure KHURRAM QUINONES [facility] Start: 10-28-2022 End: 10-29-[address] MK GARCIA Facility:H1 Start: 10-20-2022 Patient encounter procedure Benji Garcia Work Phone: [facility] 250 DO Work Phone: Start: 10-13-[address] Mk Garcia Facility:[id number] Start: 10-09-2022 AUDIT Mk Garcia Work Phone: [facility] Work Phone: Start: 10-05-2022 End: 10-08-2022 Evaluation and management of inpatient Dr. Mk Garcia Facility:[id number] Start: 10-05-2022 End: 10-08-2022 [facility] Start: 10-03-2022 End: 10-03-2022 Emergency department patient visit MD Mk Garcia Work Phone: [facility]-Emergency Room Work Phone: Start: 09-29-2022 End: 09-29-2022 ambulatory Yemi Silverio Other [facility] [employer] Other Start: 09-29-2022 Telephone encounter Yemi [facility] Start: 09-28-[address] Mk Garcia Facility:[id number] Start: 09-27-[address] Gabriel Coles Facility:[id number] Start: 09-26-2022 End: 09-29-2022 Evaluation and management of inpatient MD Mk Garcia Work Phone: [facility] [place] [facility] Work Phone: Start: 09-26-2022 End: 09-26-2022 ambulatory THERESA JOHANSEN Facility:H1 Start: 09-21-2022 End: 09-22-[address] REJI EPPS . Facility:H1 Start: 09-21-2022 End: 09-22-2022 ambulatory Reji EPPS Facility:EU [place] Start: 07-23-2022 Office outpatient vi sit 25 minutes Mk Garcia Work Phone: -[facility] 250 DO Work Phone: Start: 07-23-[address] Bonifacio Stern Facility: Start: 07-02-[address] Mk Garcia Facility: Start: 06-29-2022 End: 06-30-2022 ambulatory Reji EPPS Facility:[facility] [place] Start: 06-29-2022 End: 06-29-2022 Patient encounter procedure Reji EPPS [facility] [place] Start: 05-27-2022 End: 05-27-2022 Admission to same day surgery center MD Mk Garcia Work Phone: [facility]-Interventional Radiology Start: 05-27-2022 End: 05-27-2022 ambulatory MD Mk Garcia Work Phone: [facility] Work Phone: Start: 05-26-2022 Office outpatient vi sit 25 minutes Maryann APPIAH [facility] Surgery Start: 05-26-2022 End: 05-26-2022 ambulatory MD Mk Garcia Work Phone: [facility] Work Phone: Start: 05-26-2022 End: 05-26-2022 Patient encounter procedure MD Mk Garcia Work Phone: [facility]-Ultrasound [facility] Start: 05-21-2022 End: 05-22-[address] MK GARCIA Facility: Start: 05-20-2022 End: 05-20-2022 Admission to same day surgery center MD Mk Garcia Work Phone: [facility]-Interventional Radiology Start: 05-20-2022 End: 05-20-2022 ambulatory MD Mk Garcia Work Phone: [facility] Work Phone: Start: 04-28-2022 End: 04-28-2022 ambulatory Yemi Silverio Other [facility] [employer] Other Start: 04-28-2022 Telephone encounter Yemi [facility]als [facility] Start: 04-01-2022 End: 04-01-2022 ambulatory Yemi Silverio Other [employer] Other Start: 04-01-2022 Telephone encounter Yemi BRAR G Gastroenter[facility] Start: 03-30-2022 End: 03-30-2022 Admission to same day surgery center MD Mk Garcia Work Phone: [facility]-Digestive Health Start: 03-30-2022 End: 03-30-2022 Emergency department patient visit MD Mk Garcia Work Phone: [facility]-Emergency Room Start: 03-16-2022 End: 03-16-2022 Emergency department patient visit MD Mk Garcia Work Phone: [facility]-Emergency Room Start: 02-24-2022 End: 02-24-2022 Patient encounter procedure MD Mk Garcia Work Phone: [facility]-Pre-Surgical Testing Start: 02-17-2022 End: 02-17-2022 ambulatory Tani Vargas Other [employer] Other Start: 02-17-2022 Office outpatient vi sit 25 minutes Tani APPIAH [facility] Start: 02-10-2022 End: 02-10-2022 ambulatory Yemi Silverio Other [employer] Other Start: 02-10-2022 Telephone encounter Yemi BRAR G [facility] Start: 02-10-2022 End: 02-10-2022 Emergency department patient visit MD Mk Garcia Work Phone: [facility]-Emergency Room Start: 01-05-2022 End: 01-06-[address] REJI EPPS . Facility: Start: 01-02-2022 End: 01-03-2022 ambulatory Reji EPPS Facility:[facility] Start: 01-02-2022 End: 01-02-2022 Patient encounter procedure Reji Mathews EPPS [facility] Start: 10-15-2021 Office outpatient vi sit 25 minutes Mk Tom Garcia Work Phone: -[facility] 250 DO Work Phone: Start: 09-29-2021 End: 09-29-2021 ambulatory Maryann Casillas Other [employer] Other Start: 09-29-2021 Patient encounter procedure Maryann scott [facility] Start: 09-25-2021 Patient encounter procedure Do yamilet Calles COATER OPERATOR INSULATION BOARD-THIRD SHIFT [employer]ENANT Work Phone: [facility] 600 DO Work Phone: Start: 08-12-2021 End: 08-12-2021 ambulatory Tani Vargas Other [employer] Other Start: 08-12-2021 Telephone encounter Tani Vargas [facility] Start: 08-11-2021 End: 08-11-2021 ambulatory Tani Vargas Other [employer] Other Start: 08-11-2021 Telephone encounter Tani Vargas [facility] Start: 08-08-2021 End: 08-08-2021 ambulatory Tani Vargas Other [employer] Other Start: 08-08-2021 Postop follow up vis it related to original px Tani Vargas [facility] Start: 08-07-2021 End: 08-07-2021 ambulatory Tani Vargas Other [employer] Other Start: 08-07-2021 Telephone encounter Tani Vargas [facility] Procedures Date Procedure Procedure Detail Performing Clinician Start: 12-29-2024 ALL CBC WITH AUTO DIFF Mk Garcia MD Work Phone: Start: 05-26-2024 [facility] CMP (CMP) (FOR REMOTE [facility] USE) Gener ic External Data Provider Start: 03-14-2024 ALL CBC WITH AUTO DIFF Mk Garcia MD Work Phone: Start: 01-19-2024 End: 01-19-2024 Colonoscopy MD Mk Garcia Work Phone: Start: 07-06-2023 Diagnostic radiography of abdomen MD Zayra Garcia Work Phone: Start: 07-06-2023 SARS-CoV-2, Influenza & RSV (PCR) MD Zayra Garcia Work Phone: Start: 07-06-2023 Computed tomography angiography of abdominal and/or pelvic blood vessel MD Mk Garcia Work Phone: Start: 07-06-2023 CT of chest MD Mk Garcia Work Phone: Start: 06-21-2023 US scan of aorta MD Mk Garcia Work Phone: Start: 12-17-2022 Fluoroscopy up to 1 hour physician/qhp time Alyssia Weber MD Work Phone: Start: 12-17-2022 ERCP Provation Conversion Start: 12-17-2022 Glucose [Mass/volume] in Serum or Plasma Alyssia Weber MD Work Phone: Start: 10-07-2022 End: 10-07-2022 EKG impression Maria Luisa Nehemiah Start: 10-05-[address] Mk Garcia Comment on above: Performed By: #### CBC #### [facility] [address] [place] [address] Start: 09-28-2022 MRI of abdomen with contrast MD Mk aceves Work Phone: Start: 09-21-[address] REJI EPPS . Comment on above: Performed By: #### PSAD #### [facility] [address] [place] [address] Dr. Charlotte Awan Start: 05-27-2022 IR Angiogram w/TLA/Stent Left Arm (Not Applicable) MD Mk Garcia Work Phone: Start: 05-26-2022 US scan of aorta MD Mk Garcia Work Phone: Start: 05-21-[address] REJI EPPS . Comment on above: Performed By: #### VITAD, PSASC #### [facility] [address] [place] [address] Dr. Charlotte Awan Start: 03-30-2022 Esophagogastroduodenoscopy MD Mk west Work Phone: Start: 03-30-2022 Computed tomography angiography of abdominal and/or pelvic blood vessel MD Mk Garcia Work Phone: Start: 03-16-2022 US scan of gallbladder MD Mk Garcia Work Phone: Start: 03-16-2022 Computed tomography angiography of abdominal and/or pelvic blood vessel MD Mk Garcia Work Phone: Start: 02-10-2022 Computed tomography angiography of abdominal and/or pelvic blood vessel MD Mk Garcia Work Phone: Start: 01-05-[address] REJI EPPS . Comment on above: Performed By: #### VITAD, PSASC #### [facility] [address] [place] [address] Dr. Charlotte Awan Start: 11-29-2017 Transrectal biopsy of prostate using ultrasound guidance Reji EPPS Comment on above: 06/23/2016 Start: 04-16-2016 Transurethral prostatectomy Reji VARNER Start: 03-03-2016 Cystoscopy Reji EPPS Comment on above: 2007 Start: 02-27-2016 Urodynamic studies Reji EPPS Angioplasty of blood vessel Deirdre Calles COATER OPERATOR INS[employer] Work Phone: Biopsy of prostate Deirdre Calles COATER OPERATOR INSULATION [employer] Work Phone: Cardiac catheterization Fred Calles COATER OPERATOR INSULATION [employer]ARD-[employer]IRD [employer] Work Phone: Cholecystectomy Mk west Work Phone: Colonoscopy Deirdre killian COATER OPERATOR INSULATION [employer]IRD [employer] Work Phone: Comment on above: 20Jul2014; Colonoscopy Reij EPPS Hemorrhoidectomy Reji PEDRAZA ERS Operation on the ear Deirdre Calles COATER OPERATOR INSUL[employer]-THIRD [employer] Work Phone: SARS Antigen (LFIA) MD Mk Garcia Work Phone: Screening for occult blood in feces MD Mk Garcia Work Phone: Surgical procedure on eye proper Mk Santos Nadcalir Work Phone: Transurethral prostatectomy Deirdre Calles COATER OPERATOR INSULATION [employer]-THIRD [employer] Work Phone: Plan of Treatment Date Care Activity Detail Author Start: 01-18-2034 Screening for malignant neoplasm of colon [facility] Start: 05-16-2025 End: 05-16-2025 Patient encounter procedure 05/16/2025 10:40 AM EDT Office Visit [facility] [address] [place] [address] Bonifacio Stern, [address] [facility] [address] [place], [place] [id number] [facility] Start: 03-19-2025 Influenza vaccination Influenza Vaccine (Season Ended) [facility] Start: 03-14-2025 End: 03-14-2025 Patient encounter procedure 03/14/2025 1:30 PM EDT Office Visit [facility] [address] [place] [address] Mk Garcia MD [address] [place] [phone] [facility] Start: 12-06-2024 End: 12-06-2025 Basic metabolic 1998 panel - Serum or Plasma Basic metabolic panel Lab Routine Essential hypertension, benign (CMS/HCC) Expected: 12/06/2024 (Approximate), Expires: 12/06/2025 [facility] Comment on above: Expected: 12/06/2024 (Approximate), Expi res: 12/06/2025 Start: 12-06-2024 End: 12-06-2025 CBC W Auto Differential panel - Blood CBC and differential Lab Routine Encounter for long-term current use of medication Expected: 12/06/2024 (Approximate), Expires: 12/06/2025 [facility] Comment on above: Expected: 12/06/2024 (Approximate), Expi res: 12/06/2025 Start: 12-06-2024 End: 12-06-2025 Hemoglobin A1c/Hemoglobin.total in Blood Hemoglobin A1c Lab Routine Type 2 diabetes mellitus with hyperglycemia, without long-term current use of insulin ([facility]) Expected: 12/06/2024 (Approximate), Expires: 12/06/2025 [facility] Comment on above: Expected: 12/06/2024 (Approximate), Expi res: 12/06/2025 Start: 12-06-2024 End: 12-06-2025 Hepatic function 2000 panel - Serum or Plasma Hepatic function panel Lab Routine Encounter for long-term current use of medication Expected: 12/06/2024 (Approximate), Expires: 12/06/2025 [facility] Comment on above: Expected: 12/06/2024 (Approximate), Expi res: 12/06/2025 Start: 12-06-2024 End: 12-06-2025 Lipid 1996 panel - Serum or Plasma Lipid panel Lab Routine Dyslipidemia ([facility]/HCC) Expected: 12/06/2024 (Approximate), Expires: 12/06/2025 [facility] Comment on above: Expected: 12/06/2024 (Approximate), Expi res: 12/06/2025 Start: 12-06-2024 End: 12-06-2025 Microalbumin/Creatinine panel in random Urine Microalbumin / creatinine, urine ratio Lab Routine Type 2 diabetes mellitus with hyperglycemia, without long-term current use of insulin ([facility]) Expected: 12/06/2024 (Approximate), Expires: 12/06/2025 [facility] Work Phone: Comment on above: Expected: 12/06/2024 (Approximate), Expi res: 12/06/2025 Start: 12-06-2024 End: 12-06-2025 Thyrotropin [Units/volume] in Serum or Plasma TSH Lab Routine Fatigue, unspecified type Expected: 12/06/2024 (Approximate), Expires: 12/06/2025 [facility] Comment on above: Expected: 12/06/2024 (Approximate), Expi res: 12/06/2025 Start: 12-06-2024 End: 12-06-2024 Patient encounter procedure 12/06/2024 7:15 AM EDT [facility] [address] [place] [phone] Mk Garcia MD [address] [place] [phone] Arrived [facility] Comment on above: Arrived Start: 11-14-2024 End: 11-14-2025 Alanine aminotransferase [Enzymatic activity/volume] in Serum or Plasma by With P-5'-P Alanine Aminotransferase Lab Routine Two-vessel coronary artery disease Essential hypertension Expected: 11/14/2024 (Approximate), Expires: 11/14/2025 [facility] Service Area Work Phone: Comment on above: Expected: 11/14/2024 (Approximate), Expi res: 11/14/2025 Start: 11-14-2024 End: 11-14-2025 Aspartate aminotransferase [Enzymatic activity/volume] in Serum or Plasma by With P-5'-P Aspartate Aminotransferase Lab Routine Two-vessel coronary artery disease Essential hypertension Expected: 11/14/2024 (Approximate), Expires: 11/14/2025 [facility] Work Phone: Comment on above: Expected: 11/14/2024 (Approximate), Expi res: 11/14/2025 Start: 11-14-2024 End: 11-14-2025 Basic metabolic 2000 panel - Serum or Plasma Basic Metabolic Panel Lab Routine Two-vessel coronary artery disease Essential hypertension Expected: 11/14/2024 (Approximate), Expires: 11/14/2025 [facility] Work Phone: Comment on above: Expected: 11/14/2024 (Approximate), Expi res: 11/14/2025 Start: 11-14-2024 End: 11-14-2025 Lipid 1996 panel - Serum or Plasma Lipid Panel Lab Routine Two-vessel coronary artery disease Essential hypertension Expected: 11/14/2024 (Approximate), Expires: 11/14/2025 [facility] Work Phone: Comment on above: Expected: 11/14/2024 (Approximate), Expi res: 11/14/2025 Start: 11-08-2024 End: 11-08-2024 Patient encounter procedure 11/08/2024 11:30 AM EDT Office Visit [facility] [address] [place] [address] Deirdre Calles, COATER OPERATOR INSULATION BOARD-[employer]IRD [employer] [address] [place] [address] [facility] Start: 09-14-2024 Hemoglobin A1c measurement Diabetes: Hemoglobin A1C [facility] Start: 08-28-2024 US Thoracic and abdominal aorta [facility] Start: 07-07-2024 End: 07-07-2024 Patient encounter procedure 07/07/2024 11:00 AM EST Office Visit [facility] [address] [place] [phone] Mk Garcia MD [address] [place] [address] [facility] Start: 05-25-2024 Urine screening for protein Diabetes: Urine Protein Screening [facility] Start: 05-23-2024 End: 05-23-2024 Patient encounter procedure 05/23/2024 2:30 PM EST Office Visit [facility] [address] [place] [phone] Mk Garcia MD [address] [place] [phone] [facility] Start: 05-22-2024 End: 05-22-2025 Comprehensive metabolic 2000 panel - Serum or Plasma Comprehensive metabolic panel Lab Routine Choledocholithiasis Belching Abdominal discomfort Expected: 05/22/2024 (Approximate), Expires: 05/22/2025 [facility] Service Area Work Phone: Comment on above: Expected: 05/22/2024 (Approximate), Expi res: 05/22/2025 Start: 05-22-2024 End: 05-22-2025 US Abdomen US abdomen complete Imaging Routine Choledocholithiasis Belching Abdominal discomfort Expected: 05/22/2024, Expires: 05/22/2025 [facility] Work Phone: Comment on above: Expected: 05/22/2024, Expires: Start: 05-10-2024 End: 05-10-2024 Patient encounter procedure 05/10/2024 11:10 AM EDT Office Visit [facility] [address] [place] [address] Bonifacio Stern, [address] [place] [address] [facility] Start: 04-11-2024 End: 04-11-2024 Patient encounter procedure [facility] Comment on above: Arrived Start: 03-19-2024 COVID-19 Vaccine ( season) COVID-19 Vaccine ( season) [facility] Start: 03-19-2024 COVID-19 Vaccine ( season) COVID-19 Vaccine ( season) [facility] Start: 03-19-2024 Influenza vaccination [facility] Start: 03-17-2024 Glaucoma screening Diabetes: Retinopathy Screening [facility] Start: 03-14-2024 End: 03-14-2024 Patient encounter procedure [facility] Comment on above: Arrived Start: 03-14-2024 End: 03-14-2025 Basic metabolic 1998 panel - Serum or Plasma Basic metabolic panel Lab Routine Stage 3a chronic kidney disease (HCC) ([facility]) Expected: 03/14/2024 (Approximate), Expires: 03/14/2025 [facility] Comment on above: Expected: 03/14/2024 (Approximate), Expi res: 03/14/2025 Start: 03-14-2024 End: 03-14-2025 CBC W Auto Differential panel - Blood CBC and differential Lab Routine Encounter for long-term current use of medication Expected: 03/14/2024 (Approximate), Expires: 03/14/2025 [facility] Comment on above: Expected: 03/14/2024 (Approximate), Expi res: 03/14/2025 Start: 03-14-2024 End: 03-14-2025 Hemoglobin A1c/Hemoglobin.total in Blood Hemoglobin A1c Lab Routine Type 2 diabetes mellitus with hyperglycemia, without long-term current use of insulin ([facility]) Expected: 03/14/2024 (Approximate), Expires: 03/14/2025 [facility] Work Phone: Comment on above: Expected: 03/14/2024 (Approximate), Expi res: 03/14/2025 Start: 01-19-2024 [facility] Start: 11-30-2023 End: 11-30-2023 Patient encounter procedure 11/30/2023 1:30 PM EDT Office Visit [facility] [address] [place] [phone] Mk Garcia MD [address] [place] [phone] [facility] Start: 09-08-2023 FUV, Provider: Bonifacio Stern, Status: Pen, Time: 10:20 AM FUV, Provider: Bonifacio Stern, Status: Pen, Time: 10:20 AM [facility] 250 DO Work Phone: Start: 09-08-2023 End: 09-08-2023 Patient encounter procedure 09/08/2023 10:20 AM EST Office Visit [facility] [address] [place] [phone] Bonifacio Stern S, DO [address] [place] [address] [facility] Start: 09-01-2023 End: 09-01-2023 Patient encounter procedure 09/01/2023 10:30 AM EST Office Visit [facility] [address] [place] [phone] Mk Garcia MD [address] [place] [phone] Arrived [facility] Comment on above: Arrived Start: 07-08-2023 [facility] Start: 07-07-2023 [facility] Start: 07-07-2023 Stool culture for bacteria Stool Culture [facility] Start: 07-06-2023 Hospital admission [facility] Start: 07-06-2023 [facility] Start: 06-21-2023 US scan of aorta US aorta [facility] Start: 06-21-2023 US Thoracic and abdominal aorta [facility] Start: 04-21-2023 FANI, Provider: AARON LARSON IT SYSTEMS MANAGER 1,[id number], Status: Pen, Time: 10:00 AM FANI, Provider: AARON LARSON IT SYSTEMS MANAGER 1,[id number], Status: Pen, Time: 10:00 AM [facility] 250 DO Work Phone: Start: 03-19-2023 COVID-19 Vaccine ( season) COVID-19 Vaccine ( season) [facility] Start: 03-19-2023 Influenza vaccination Influenza Vaccine (#1) [facility] Start: 02-25-2023 FUV, Provider: Bonifacio Stern, Status: Pen, Time: 11:10 AM FUV, Provider: Bonifacio Stern, Status: Pen, Time: 11:10 AM -[facility] 250 DO Work Phone: Start: 02-25-2023 Patient encounter procedure [facility] [place] Start: 11-17-2022 POV, Provider: Franky Mattson, Status: Pen, Time: 1:15 PM POV, Provider: Franky Mattson, Status: Pen, Time: 1:15 PM [facility] Work Phone: Start: [facility]2022 [facility] Provider: Franky Mattson, Status: Pen, Time: 10:00 AM [facility], Provider: Franky Mattson, Status: Pen, Time: 10:00 AM [facility] Work Phone: Start: 10-13-2022 Patient encounter procedure [facility] Start: 10-07-2022 End: 10-08-2023 Insulin Lispro Mild Corrective Scale MILD ; Give SubCutaneous 3 Times a Day Before Meals Hypoglycemia Protocol Call LIP unit(s) if Blood Glucose is between 0 - 70 0 unit(s) if Blood Glucose is between 71 - 150 2 unit(s) if Blood Glucose is between 151 - 200 4 unit(s) if Blood Glucose is between 201 - 250 6 unit(s) if Blood Glucose is between 251 - 300 8 unit(s) if Blood Glucose is between 301 - 350 10 unit(s) if Blood Glucose is between 351 - 400 Notify Provider unit(s) if Blood Glucose is greater than 400Notes from Pharmacy: [facility] Start: 07-Oct-2022 End: 07-Oct-2023 Ordered: 07-Oct-2022 Maria Luisa Cerna [facility] Start: 10-05-2022 End: 10-06-2023 [facility] Comment on above: IF patient HAS a secure IV access & is U nconscious, Conscious, NPO or Unable to Eat or Drink. Repeat until BG reaches 100 mg/dL or greater. Push 2-3 mL/minute. Discontinue once BG reaches 100 mg/dL or greater. IF patient DOES NOT have secure IV access & is Unconscious, Conscious, NPO or Unable to Eat or Drink. Repeat until BG reaches 100 mg/dL or greater. Discontinue once BG reaches 100 mg/dL or greater. Start: 10-03-2022 Computed tomography angiography of abdominal and/or pelvic blood vessel CT angio abdomen pelvis [facility] Start: 10-03-2022 CTA Abdominal vessels and Pelvis vessels W contrast IV [facility] Start: 09-29-2022 [facility] Start: 09-26-2022 Hospital admission [facility] Start: 09-26-2022 Referral to machine heddle cleaner [facility] Start: 08-28-2022 COVID-19 Vaccine (4 - Pfizer series) COVID-19 Vaccine (4 - Pfizer series) [facility] Start: 05-27-2022 FUV, Provider: Bonifacio Stern, Status: Pen, Time: 11:20 AM FUV, Provider: Bonifacio Stern, Status: Pen, Time: 11:20 AM [place] [address] DO Work Phone: Start: 05-27-2022 [facility] Start: 05-20-2022 IR Angiogram w/TLA/Stent Left Arm (Not Applicable) IR Angiogram w/TLA/Stent Left Arm (Not Applicable) [facility] Start: 03-30-2022 [facility] Start: 03-16-2022 US scan of gallbladder US gall bladder [facility] Start: 03-16-2022 Computed tomography angiography of abdominal and/or pelvic blood vessel CT angio abdomen pelvis [facility] Start: 03-16-2022 End: 03-16-2022 Emergency department patient visit Departed Emergency [facility]-Emergency Room Start: 02-24-2022 End: 02-24-2022 Patient encounter procedure Departed Clinical [facility] Testing Start: 10-30-2021 FUV, Provider: Deirdre Tristan, Status: Pen, Time: 2:30 PM FUV, Provider: Deirdre Tristan, Status: Pen, Time: 2:30 PM -[facility] 600 DO Work Phone: Start: 02-16-2017 Pneumococcal vaccination Pneumococcal Vaccine (2 of 2 - PCV) [facility] Start: 02-16-2017 Pneumococcal Vaccine: 65+ Years (2 - PCV) Pneumococcal Vaccine: 65+ Years (2 - PCV) [facility] Start: 02-16-2017 Pneumococcal Vaccine: 65+ Years (2 of 2 - PCV) Pneumococcal Vaccine: 65+ Years (2 of 2 - PCV) [facility] Start: 11-10-2015 Abdominal aortic aneurysm screening Abdominal Aortic Aneurysm (AAA) Screening [facility] Start: 2010 RSV High Risk: (Elderly (60+) or Population) (1 - Risk 60-74 years 1-dose series) RSV High Risk: (Elderly (60+) or Population) (1 - Risk 60-74 years 1-dose series) [facility] Start: 2010 RSV patients and/or patients aged 60+ years (1 - 1-dose 60+ series) RSV patients and/or patients aged 60+ years (1 - 1-dose 60+ series) [facility] Start: 2000 Zoster Vaccines (1 of 2) Zoster Vaccines (1 of 2) [facility] Start: 1972 DTaP/Tdap/Td Vaccines (1 - Tdap) DTaP/Tdap/Td Vaccines (1 - Tdap) [facility] Start: 1969 Hepatitis A Vaccines (1 of 2 - Risk 2-dose series) Hepatitis A Vaccines (1 of 2 - Risk 2-dose series) [facility] Start: 1969 Urine screening for protein Diabetes: Urine Protein Screening [facility] Start: 1968 Hepatitis C screening Hepatitis C Screening [facility] Start: 1960 Diabetic foot examination Diabetes: Foot Exam [facility] Start: 1960 Glaucoma screening Diabetes: Retinopathy Screening [facility] Start: 1950 Annual wellness visit Medicare Initial Physical (IPPE) [facility] Start: 1950 Hemoglobin A1c measurement Diabetes: Hemoglobin A1C [facility] Start: 1950 Lipid panel Lipid Panel [facility] Start: 1950 Medicare Annual Wellness (AWV) Medicare Annual Wellness (AWV) [facility] Start: 1950 Medicare Annual Wellness Visit Medicare Annual Wellness Visit (AWV) [facility] Start: 1950 Screening for malignant neoplasm of colon [facility] Start: 1950 Urine screening for protein Diabetes: Urine Protein Screening [facility] Ova and parasites identified in Unspecified specimen by Light microscopy [facility] Patient Education [facility] Work Phone: Patient referral [facility] Work Phone: End: 05-26-2024 US Abdomen RUQ [facility] Service Area Work Phone: Comment on above: Once for 1 Occurrences starting 05/26/20 until 05/26/2024 Immunizations Immunization Date Immunization Notes Care Provider Maximilian jones 07-03-2022 Pfizer COVID-19 Vac Bivalent 30 MCG/0.3ML Intramuscular Suspension Mk Weeksr Work Phone: [facility] 250 DO Work Phone: 07-02-2022 Seasonal, quadrivale nt, recombinant, injectable influenza vaccine, preservative free Mk Weeksr Work Phone: [facility] 250 DO Work Phone: 07-02-2022 influenza virus vacc ine, unspecified formulation Alyssia Weber MD Work Phone: [facility] Work Phone: 07-05-2021 Pfizer-BioNTech COVI D-19 Vacc 30 MCG/0.3ML Intramuscular Suspension Deirdre Calles [employer] Work Phone: [facility] 600 DO Work Phone: 10-09-2020 Pfizer-BioNTech COVI D-19 Vacc 30 MCG/0.3ML Intramuscular Suspension Deirdre Calles [employer] O[employer] Work Phone: [facility] 600 DO Work Phone: 09-18-2020 [email or web address] COVI D-19 Vacc 30 MCG/0.3ML Intramuscular Suspension Deirdre Calles [employer] O[employer] Work Phone: [facility] 600 DO Work Phone: 05-19-2018 influenza virus vacc ine, unspecified formulation Deirdre Calles [employer] Work Phone: [facility] 600 DO Work Phone: 04-18-2016 influenza virus vacc ine, unspecified formulation Deirdre Calles [employer] Work Phone: [facility] 600 DO Work Phone: 02-17-2016 pneumococcal polysaccharide vaccine, 23 valent Deirdre Cai Stevan [employer] Work Phone: [facility] 600 DO Work Phone: 05-19-2015 influenza virus vacc ine, unspecified formulation Deirdre Calles [employer] Work Phone: [facility] 600 DO Work Phone: 05-28-2014 influenza, injectabl e, quadrivalent, contains preservative Tani Vargas Other [facility] 05-19-2014 influenza virus vacc ine, unspecified formulation Deirdre Calles [employer] Work Phone: [facility] 600 DO Work Phone: 07-19-2012 influenza virus vacc ine, unspecified formulation Deirdre Cai Stevan [employer] Work Phone: [facility] 600 DO Work Phone: 07-19-2010 influenza virus vacc ine, unspecified formulation Alyssia Weber MD Work Phone: [facility] Work Phone: 07-19-2006 pneumococcal polysaccharide vaccine, 23 valent Deirdre Calles [employer] Work Phone: [facility] 600 DO Work Phone: influenza virus vacc ine, unspecified formulation Deirdre Calles [employer] Work Phone: [facility] 600 DO Work Phone: Comment on above: 2011 2010 Payers Date Payer Category Payer Self-pay [id number] 2022 Dual Eligibility Medicare/Medicaid Organization [facility] DUAL COMPLETE [id number] 2022 Medicare [employer] UHC DUAL COMPLETE [id number] 2022-Present [address] [place] [address] [id number] 2022 Medicare (Managed Care) [facility] MEDICARE [id number] 2022 Private Health Insurance [id number] 2017 Medicaid [id number] 2017 Unknown [id number] 1959 Medicaid [id number] 2.16.840.1.822441.19 1959 Medicare [id number] 2.16.840.1.700866.19 1950 Unknown [id number] 2.16.840.1.773001.3.579.2 .593 1950 Unknown [id number] 2.16.840.1.572569.3.579.2 .593 1950 Unknown [id number] 2.16.840.1.144924.3.579.2 .593 1950 Unknown [id number] 2.16.840.1.631686.3.579.2 .593 1950 Unknown [id number] 2.16.840.1.035337.3.579.2 .593 1950 Unknown [id number] 2.16.840.1.602746.3.579.2 .727 1950 Unknown [id number] 2.16.840.1.652442.3.579.2 .727 1950 Unknown [id number] 2.16.840.1.619418.3.579.2 .727 1950 Unknown [id number] 2.16.840.1.975031.3.579.2 .727 1950 Unknown [id number] 2.16.840.1.133917.3.579.2 .1069 1950 Unknown [id number] 2.16.840.1.081122.3.579.2 .1069 1950 Unknown [id number] 2.16.840.1.006172.3.579.2 .1068 1950 Unknown [id number] 2.16.840.1.995471.3.579.2 .356 1950 Unknown [id number] 2.16.840.1.722187.3.579.2 .356 1950 Unknown [id number] 2.16.840.1.799776.3.579.2 .356 1950 Unknown [id number] 2.16.840.1.592241.3.579.2 .1950 Unknown [id number] 2.16.840.1.760499.3.579.2 .1950 Unknown [id number] 2.16840.1.047872.3.579.2 .1950 Unknown [id number] 2.16.840.1.639115.3.579.2 .1950 Unknown [id number] 2.16.840.1.122447.3.579.2 .356 1950 Unknown [id number] 2.16.840.1.791827.3.579.2 .1245 1950 Unknown [id number] 2.16.840.1.398985.3.579.2 .1244 1950 Unknown [id number] 2.16.840.1.646707.3.579.2 .1243 1950 Unknown [id number] 2.16.840.1.535739.3.579.2 .1243 1950 Unknown [id number] 2.16.840.1.704968.3.579.2 .1243 1950 Unknown [id number] 2.16.840.1.975461.3.579.2 .1259 1950 Unknown [id number] 2.16.840.1.476175.3.579.2 .1259 1950 Unknown [id number] 2.16.840.1.583761.3.579.2 .1259 Medicare Medicare [id number] Private Health Insurance [facility] [id number] Unknown Unknown [id number] 2.16.840.1.722838.3.579.2 .531 Unknown [id number] 2.16.840.1.479227.3.579.2 .531 Social History Date Type Detail Facility Start: 07-23-2022 End: 12-06-2024 Daily caffeine consumption, 1 serving a day Daily caffeine consumption, 1 serving a day [facility] Comment on above: 3/ PPD; Start: 01-02-2022 Tobacco smoking status Light tobacco smoker (finding) [facility] Start: 07-23-2022 End: 12-06-2024 Sex Assigned At Male [facility] [employer] Other Start: 03-16-2022 End: 01-19-2024 Tobacco smoking status NHIS Smoker (finding) [facility] Start: 1950 Sex Assigned At Male [facility] Tobacco smoking consumption unknown [facility] Start: 1950 Sex Assigned At Not on file [facility] Work Phone: Start: 04-11-2023 End: 11-14-2024 Exposure to SARS-CoV-2 (event) Not sure [facility] Start: 07-29-2023 End: 2023 Tobacco smoking status NHIS Smokes tobacco daily [facility] History of tobacco use Cigarette Smoker [facility] Start: 2023 Tobacco use and exposure Smokeless tobacco non-user [facility] Work Phone: Start: 2023 End: 11-14-2024 Alcoholic beverage intake Lifetime non-drinker (finding) [facility] Work Phone: Start: 08-28-2024 End: 08-29-2024 Sex Male (finding) [facility] Medical Equipment Procedure Code Equipment Code Equipment Origin al Text Equipment Identifier Dates AAA repair with graft Cardiovascular patch, animal-derived [id number] FDA Start: 07-28-2021 AAA repair with graft Abdominal aorta endovascular stent-graft [id number] FDA Start: 07-28-2021 AAA repair with graft Abdominal aorta endovascular stent-graft [id number] FDA Start: 07-28-2021 AAA repair with graft Abdominal aorta endovascular stent-graft [id number] FDA Start: 07-28-2021 FDA Start: 10-21-2018 CL STENT LORE 2.5 X 18 FDA Start: 10-21-2018 CL STENT LORE 2.5 X 18 FDA Start: 10-21-2018 CL STENT LORE 2.5 X 18 FDA Start: 10-21-2018 CL STENT LORE 2.5 X 18 FDA Start: 10-21-2018 CL STENT LORE 2.5 X 18 FDA Start: 10-21-2018 CL STENT LORE 2.5 X 18 FDA Start: 10-21-2018 CL STENT LORE 2.5 X 18 FDA Start: 10-21-2018 CL STENT LORE 2.5 X 18 FDA Start: 10-21-2018 CL STENT LORE 2.5 X 18 FDA Start: 10-21-2018 CL STENT LOER 2.5 X 18 FDA Start: 10-21-2018 CL STENT LORE 2.5 X 18 FDA Start: 10-21-2018 1 strip by In Vi tro route Daily as needed [id number] CL STENT LORE 2.5 X 18 FDA Start: 10-21-2018 CL STENT LORE 2.5 X 18 FDA Start: 10-21-2018 CL STENT LORE 2.5 X 18 FDA Start: 10-21-2018 Goals Date Patient Goal Desired Activity /State Functional Status Date Assessment Result Facility 07-08-2023 Functional status Patient at Baseline [facility] Work Phone: 09-29-2022 Functional status Patient at Baseline [facility] Work Phone: 01-02-2022 Functional Status N/A [facility] Functional observable [facility] Mental Status Date Assessment Result Facility 07-08-2023 Cognitive function Cognitive Sta tus Patient at Baseline [facility] Work Phone: 10-08-2022 Cognitive functi ons [id number] [facility] 09-29-2022 Cognitive function Cognitive Sta tus Patient at Baseline [facility] Work Phone: Clinical Notes 07-28-2021 to 12-06-2024 Mk Garcia MD - 12/06/2024 7:56 AM Beckie Garcia MD - 12/06/2024 7:56 AM Beckie Garcia MD - 12/06/2024 7:56 AM Beckie Garcia MD - 12/06/2024 7:55 AM EDTPatient Instructions Note Date & Type Note Facility 12-06-2024 History of Presen t illness Narrative Associated Problem(s): Vertigo Use meclizine PRN. If worsens will refer to vestibular rehab. Associated Problem(s): Type 2 diabetes mellitus with hyperglycemia, without long-term current use of insulin ([facility]) Not checking BS and due for A1C. Stick to ADA diet and limit carbs. Associated Problem(s): Major depressive disorder, recurrent episode, mild (HCC) (CMS/HCC) Symptoms controlled with paxil and continue. Associated Problem(s): Essential hypertension, benign (CMS/HCC) BP controlled and monitor PRN. Associated Problem(s): DDD (degenerative disc disease), lumbar Pain stable and use norco PRN. Images from the original note were not included. Subjective Patient ID: Gopal Irving is a 74 y.o. male who presents for Vertigo (Fell on wednesday). Follow up DM, HTN, back pain, and depression. Not checking BS away from office and due for A1C. Tries to eat well and stick to ADA diet. Denies signs of elevated BS such as polyuria, polyphagia or polydipsia. Checking BP PRN and typically controlled. BP normal today. Taking medication daily and tolerating without side effects. Depression controlled with paxil. Not down or sad and feels happier. Back pain unchanged. Pain in low back and across top hips. Pain radiates into gluteal region and down legs when severe. Pain worse with walking, bending, or standing. Using norco PRN and helps keep pain tolerable. C/o vertigo. Symptoms off and on for years but worse over past week. Notice room spinning and triggered by movement. If turn head or stand will feel symptoms for few seconds then resolve. Review of Systems Constitutional: Negative for fatigue. Respiratory: Negative for cough, shortness of breath and wheezing. Cardiovascular: Negative for chest pain and palpitations. Gastrointestinal: Negative for abdominal pain, diarrhea, nausea and vomiting. Genitourinary: Negative for dysuria. Objective Physical Exam Constitutional: General: He is not in acute distress. Appearance: Normal appearance. HENT: Head: Normocephalic. Right Ear: Tympanic membrane and ear canal normal. Left Ear: Tympanic membrane and ear canal normal. Eyes: Extraocular Movements: Extraocular movements intact. Pupils: Pupils are equal, round, and reactive to light. Cardiovascular: Rate and Rhythm: Normal rate and regular rhythm. Heart sounds: No murmur heard. No friction rub. No gallop. Pulmonary: Breath sounds: Normal breath sounds. No wheezing, rhonchi or rales. Abdominal: General: Bowel sounds are normal. There is no distension. Palpations: Abdomen is soft. Tenderness: There is no abdominal tenderness. There is no guarding or rebound. Musculoskeletal: Left lower leg: No edema. Neurological: Mental Status: He is alert. Assessment/Plan Problem List Items Addressed This Visit Essential hypertension, benign (CMS/HCC) BP controlled and monitor PRN. Relevant Orders Basic metabolic panel DDD (degenerative disc disease), lumbar Pain stable and use norco PRN. Dyslipidemia (CMS/HCC) Relevant Orders Lipid panel Iron deficiency anemia secondary to inadequate dietary iron intake Major depressive disorder, recurrent episode, mild (HCC) (CMS/HCC) Symptoms controlled with paxil and continue. Type 2 diabetes mellitus with hyperglycemia, without long-term current use of insulin (CMS/HCC) - Primary Not checking BS and due for A1C. Stick to ADA diet and limit carbs. Relevant Orders Microalbumin / creatinine, urine ratio Hemoglobin A1c Vertigo Use meclizine PRN. If worsens will refer to vestibular rehab. Relevant Medications meclizine (Antivert) 25 MG tablet Encounter for long-term current use of medication Relevant Orders CBC and differential Hepatic function panel Other Visit Diagnoses Fatigue, unspecified type Relevant Orders TSH Degeneration of cervical intervertebral disc Relevant Medications HYDROcodone-acetaminophen ([place]) 5-325 MG tablet documented in this encounter [facility] 11-14-2024 Evaluation + Plan note Associated Problem(s): BMI 28.0-28.9,adult Reviewed the merits of healthy lifestyle choices on overall cardiovascular health. [facility] Work Phone: 11-14-2024 Miscellaneous Notes Associated Problem(s): BMI 28.0-28.9,adult Reviewed the merits of healthy lifestyle choices on overall cardiovascular health. Associated Problem(s): Cardiac and Vasculature September 2022 TTE LVEF 55 to 60% LVH mild Left atrium mildly dilated MR mild No prior documented dysrhythmia Associated Problem(s): Two-vessel coronary artery disease Prior multivessel PCI Most recent PCI: October 2018 NSTEMI Mid LAD PCI/Lore Proximal LAD had patent stent RCA patent stent mid through distal Diagonal 100% Distal circumflex 80% was a very small vessel PLV 50-60% EF 60% July 2021 cardiac catheterization Diffuse small vessel disease Proximal/mid LAD with patent stent RCA with patent stent There was progression of PLV proximal/mid 70% Current daily activity less than 4 METS without concerning symptoms Associated Problem(s): Hyperlipidemia High intensity statin We will check annual labs Associated Problem(s): Essential hypertension Optimal in office Associated Problem(s): AAA (abdominal aortic aneurysm) Routinely with vascular August 2024 ultrasound stable infrarenal aneurysm, EVAR no leak Associated Problem(s): Current smoker 1 pack per day In past: quit for 5 years 'cold turkey' Continued every day tobacco use. Have reviewed the negative cardiovascular impact of nicotine. Continues to decline pharmacological assistance. documented in this encounter [facility] Work Phone: 11-14-2024 Evaluation + Plan note Associated Problem(s): Cardiac and Vasculature September 2022 TTE LVEF 55 to 60% LVH mild Left atrium mildly dilated MR mild No prior documented dysrhythmia [facility] Work Phone: 11-14-2024 Evaluation + Plan note Associated Problem(s): Two-vessel coronary artery disease Prior multivessel PCI Most recent PCI: October 2018 NSTEMI Mid LAD PCI/Lore Proximal LAD had patent stent RCA patent stent mid through distal Diagonal 100% Distal circumflex 80% was a very small vessel PLV 50-60% EF 60% July 2021 cardiac catheterization Diffuse small vessel disease Proximal/mid LAD with patent stent RCA with patent stent There was progression of PLV proximal/mid 70% Current daily activity less than 4 METS without concerning symptoms [facility] Work Phone: 11-14-2024 Evaluation + Plan note Associated Problem(s): Hyperlipidemia High intensity statin We will check annual labs [facility] Work Phone: 11-14-2024 Evaluation + Plan note Associated Problem(s): Essential hypertension Optimal in office [facility] Work Phone: 11-14-2024 Evaluation + Plan note Associated Problem(s): AAA (abdominal aortic aneurysm) Routinely with vascular August 2024 ultrasound stable infrarenal aneurysm, EVAR no leak [facility] Work Phone: 11-14-2024 Evaluation + Plan note Associated Problem(s): Current smoker 1 pack per day In past: quit for 5 years 'cold turkey' Continued every day tobacco use. Have reviewed the negative cardiovascular impact of nicotine. Continues to decline pharmacological assistance. [facility] Work Phone: 11-14-2024 History of Presen t illness Narrative Chief Complaint I am just a little worn out Reason for Visit 6-month follow-up Patient presents to the office today for outpatient follow-up for coronary artery disease and secondary prevention. Last evaluated in clinic by Dr. Stern April 2024. At that time, he was taken off of aspirin and to continue Plavix. Presents today ambulatory with steady gait. Accompanied by granddaughter Patient denies any hospitalizations or significant changes to interval medical history since last office follow-up. PCP follow-up is as needed Labs May 2024 reviewed. Creatinine 1.43. No recent lipids. History of Present Illness Patient is a pleasant 74 old gentleman who presents to the office today where he had to ambulate in from the parking lot because they were unable to find a wheelchair. He had some mild dyspnea but it resolved very quickly at rest. He reports this is a lot for me . He lives in a mobile home and has limited ambulation, likes to spend the day fairly sedentary. He does go outside and will use the riding mower at times. He prefers to utilize the scooter when he goes to the grocery store. He reports his prior angina symptom was chest pressure and he denies any reoccurrence. He is able to finger point to some left-sided discomfort around the ninth intercostal space just lateral midclavicular line that is clearly reduced with reproduction of movement. Is not pleuritic in nature. Not consistent with angina. His weight is up 12 pounds, no obvious fluid retention. He relates this to eating good and doing nothing . Fall screening reveals an occurrence over the course of the last year. Events were reviewed in detail with the patient and occurred while getting out of the bed to go to the bathroom, he felt like it was his vertigo symptom but denies any true syncope. He fell back onto the bed. Patient reports that overall has no complaint(s) of chest pain, chest pressure/discomfort, claudication, dyspnea, exertional chest pressure/discomfort, fatigue, irregular heart beat, and lower extremity edema Daily activity: < 4 METs Denies any change in exercise capacity or functional tolerance since last office visit. The importance of secondary prevention reviewed: HTN: Optimal HLD: Treated-due for labs DM: Treated-unknown hemoglobin A1c Smoker: Unfortunately is not ready to quit BMI: Reviewed the merits of healthy lifestyle choices on overall cardiovascular health. Discussed the dynamic nature of coronary artery disease and the importance of seeking medical attention if new symptoms arise. Review of Systems Cardiovascular: Negative for chest pain, dyspnea on exertion, irregular heartbeat, leg swelling, near-syncope, orthopnea, palpitations, paroxysmal nocturnal dyspnea and syncope. Visit Vitals BP 110/80 (BP Location: Left arm, Patient Position: Sitting) Pulse 62 Ht 1.676 m (5' 6 ) Wt 80.7 kg (178 lb) BMI 28.73 kg/m Smoking Status Every Day BSA 1.94 m Physical Exam Vitals and nursing note reviewed. Constitutional: Appearance: Normal appearance. Cardiovascular: Rate and Rhythm: Normal rate and regular rhythm. Heart sounds: Normal heart sounds. Pulmonary: Effort: Pulmonary effort is normal. Breath sounds: Examination of the right-lower field reveals decreased breath sounds. Examination of the left-lower field reveals decreased breath sounds. Decreased breath sounds present. Musculoskeletal: Cervical back: Full passive range of motion without pain. Right lower leg: No edema. Left lower leg: No edema. Skin: General: Skin is cool. Neurological: Mental Status: He is alert and oriented to person, place, and time. Psychiatric: Attention and Perception: Attention normal. Mood and Affect: Mood normal. Behavior: Behavior is cooperative. ALLERGIES: Metformin, Prednisone, and Codeine Current Outpatient Medications Medication Instructions amLODIPine (NORVASC) 5 mg, Daily cholecalciferol (Vitamin D-3) 50 MCG (1999 UT) tablet 2 tablets, Daily clopidogrel (PLAVIX) 75 mg, oral, Daily esomeprazole (NexIUM) [address] capsule 1 capsule, 2 times daily FeroSuL 325 mg (65 mg iron) tablet 1 tablet, Daily HYDROcodone-acetaminophen ([place]) 5-325 mg tablet 1 tablet, Every 4 hours PRN metFORMIN (GLUCOPHAGE) 500 mg, 2 times daily (morning and late afternoon) methocarbamol (Robaxin) 750 mg tablet 1 tablet, 3 times daily metoprolol succinate XL (TOPROL-XL) 50 mg, Daily PARoxetine (PAXIL) 20 mg, Daily polyethylene glycol (GLYCOLAX, MIRALAX) 17 g, Daily PRN potassium chloride ER (Micro-K) 10 mEq ER capsule 10 mEq, oral, Daily rosuvastatin (CRESTOR) 20 mg, oral, Daily tolterodine LA (DETROL LA) 2 mg, Every Mon/Wed/Wed valsartan (DIOVAN) 160 mg, oral, 2 times daily Assessment: Current smoker 1 pack per day In past: quit for 5 years '' Continued every day tobacco use. Have reviewed the negative cardiovascular impact of nicotine. Continues to decline pharmacological assistance. AAA (abdominal aortic aneurysm) Routinely with vascular August 2024 ultrasound stable infrarenal aneurysm, EVAR no leak Essential hypertension Optimal in office Hyperlipidemia High intensity statin We will check annual labs Two-vessel coronary artery disease Prior multivessel PCI Most recent PCI: October 2018 NSTEMI Mid LAD PCI/Lore Proximal LAD had patent stent RCA patent stent mid through distal Diagonal 100% Distal circumflex 80% was a very small vessel PLV 50-60% EF 60% July 2021 cardiac catheterization Diffuse small vessel disease Proximal/mid LAD with patent stent RCA with patent stent There was progression of PLV proximal/mid 70% Current daily activity less than 4 METS without concerning symptoms Cardiac and Vasculature September 2022 TTE LVEF 55 to 60% LVH mild Left atrium mildly dilated MR mild No prior documented dysrhythmia BMI 28.0-28.9,adult Reviewed the merits of healthy lifestyle choices on overall cardiovascular health. Plan: PLAN: Through informed decision making process incorporating patients unique circumstances, the following treatment plan will be initiated: 1. Prescription drug management of cardiovascular medication for efficacy, adherence to treatment, side effect assessment and polypharmacy. Current treatment clinically warranted and to continue without modifications. 2. Labs (lipids/alt/chem6) with next lab draw 3. Return for follow-up; in the interim, contact the office if new symptoms arise. Dr. Stern 6 months You need to stop smoking. Though it is not easy, more than half of all adults smokers have quit. We encourage you to write down all the reasons you should quit smoking and set a quit date for yourself. Ask us how we can help. You may also call 8-980-TWVAQuantivoNOW for free resources and assistance. Deirdre Calles MSN, COATER OPERATOR [employer], PMHNP-[facility] [place], [place] Please excuse any errors in grammar or translation related to this dictation. Voice recognition software was utilized to prepare this document. documented in this encounter [facility] Work Phone: 11-14-2024 Instructions LUIS EDUARDO Beltran - 11/14/2024 10:00 AM EDT Please bring all medicines, vitamins, and herbal supplements with you when you come to the office. Prescriptions will not be filled unless you are compliant with your follow up appointments or have a follow up appointment scheduled as per instruction of your physician. Refills should be requested at the time of your visit. Fall Prevention Education Given PLAN: Through informed decision making process incorporating patients unique circumstances, the following treatment plan will be initiated: 1. Prescription drug management of cardiovascular medication for efficacy, adherence to treatment, side effect assessment and polypharmacy. Current treatment clinically warranted and to continue without modifications. 2. Labs (lipids/alt/chem6) with next lab draw 3. Return for follow-up; in the interim, contact the office if new symptoms arise. Dr. Stern 6 months You need to stop smoking. Though it is not easy, more than half of all adults smokers have quit. We encourage you to write down all the reasons you should quit smoking and set a quit date for yourself. Ask us how we can help. You may also call 3-527-YICO-NOW for free resources and assistance. Ways to Help Prevent Falls at Home Quick Tips ? Ask for help if you need it. Most people want to help! ? Get up slowly after sitting or laying down ? Wear a medical alert device or keep cell phone in your pocket ? Use night lights, especially areas near a bathroom ? Keep the items you use often within reach on a small stool or end table ? Use an assistive device such as walker or cane, as directed by provider/physical therapy ? Use a non-slip mat and grab bars in your bathroom. Look for home health sections for best options Other Areas to Focus On ? Exercise and nutrition: Regular exercise or taking a falls prevention class are great ways improve strength and balance. Don t forget to stay hydrated and bring a snack! ? Medicine side effects: Some medicines can make you sleepy or dizzy, which could cause a fall. Ask your healthcare provider about the side effects your medicines could cause. Be sure to let them know if you take any vitamins or supplements as well. ? Tripping hazards: Remove items you could trip on, such as loose mats, rugs, cords, and clutter. Wear closed toe shoes with rubber soles. ? Health and wellness: Get regular checkups with your healthcare provider, plus routine vision and hearing screenings. Talk with your healthcare provider about: o Your medicines and the possible side effects - bring them in a bag if that is easier! o Problems with balance or feeling dizzy o Ways to promote bone health, such as Vitamin D and calcium supplements o Questions or concerns about falling *Ask your healthcare team if you have questions [facility]2021 documented in this encounter [facility] Work Phone: 08-28-2024 Evaluation note Diagnosis Onset Date Resolution Smoker acute August 28, 2024 8:17am Abdominal aortic aneurysm inactive August 28 8:17am [facility] Work Phone: [phone]) 874-749010-23-2024 History of Present illness Narrative* Bonifacio Stern, DO - 05/10/2024 11:10 AM EDT Subjective Gopal Irving is a 73 y.o. male Chief Complaint Follow-up 73-year-old gentleman returns for follow-up and is doing reasonably well, he said no hospitalizations or nitrate usage, edema. He ambulates today via wheelchair for ease of comfort but routinely has ambulatory weakness and numbness and pain in both lower extremities, he states especially while climbing stairs. On exam he has poor and diminished DP/PT pulses. He routinely follows with vascular surgery. He has had previous AAA repair and based on his comorbidities and continued tobacco use, I am sure he has lower extremity peripheral vascular disease. He currently has no angina He has a history of multivessel PCI's, ongoing tobacco use 1 pack a day, diabetes, COPD, hypertension, and history of abdominal aortic graft treatment for AAA in the past Patient has known ASHD with previous PCI's of the proximal and mid LAD and RCA remotely, follow-up heart catheterization in 2021 revealed widely patent stents in the segments with diffuse distal RCA and LAD disease with preserved left ventricular function, treated conservatively. Recent echocardiogram from the past year revealed normal LV function and is reviewed Recommendations: Smoking cessation counseling for 5 minutes today, continue current therapies, obtain appropriate laboratories, follow-up with nurse practitioner in 6 months Review of Systems Constitutional: Positive for malaise/fatigue. All other systems reviewed and are negative. Vitals: 05/10/24 1118 BP: 142/90 BP Location: Left arm Patient Position: Sitting Pulse: 60 Weight: 75.3 kg (166 lb) Height: 1.651 m (5' 5 ) Objective Physical Exam Constitutional: Appearance: Normal appearance. HENT: Nose: Nose normal. Neck: Vascular: No carotid bruit. Cardiovascular: Rate and Rhythm: Normal rate. Pulses: Dorsalis pedis pulses are 0 on the right side and 0 on the left side. Heart sounds: Normal heart sounds. Pulmonary: Effort: Pulmonary effort is normal. Abdominal: General: Bowel sounds are normal. Palpations: Abdomen is soft. Musculoskeletal: General: Normal range of motion. Cervical back: Normal range of motion. Right lower leg: No edema. Left lower leg: No edema. Skin: General: Skin is warm and dry. Neurological: General: No focal deficit present. Mental Status: He is alert. Psychiatric: Mood and Affect: Mood normal. Behavior: Behavior normal. Thought Content: Thought content normal. Judgment: Judgment normal. Allergies Metformin, Prednisone, and Codeine Current Medications Current Outpatient Medications: aspirin 81 mg EC tablet, Take 1 tablet (81 mg) by mouth once daily., Disp: , Rfl: cholecalciferol (Vitamin D-3) 50 MCG (2000 UT) tablet, Take 2 tablets (4,000 Units) by mouth once daily., Disp: , Rfl: clopidogrel (Plavix) 75 mg tablet, Take 1 tablet (75 mg) by mouth once daily., Disp: , Rfl: esomeprazole (NexIUM) [address] capsule, Take 1 capsule (40 mg) by mouth 2 times a day., Disp: , Rfl: FeroSuL 325 mg (65 mg iron) tablet, Take 1 tablet (325 mg) by mouth once daily., Disp: , Rfl: HYDROcodone-acetaminophen ([place]) 5-325 mg tablet, Take 1 tablet by mouth every 4 hours if needed for moderate pain (4 - 6) or severe pain (7 - 10). TAKE 1 TABLET EVERY 4 TO 6 HOURS NEEDED FOR PAIN., Disp: , Rfl: meclizine (Antivert) 25 mg tablet, Take 1 tablet (25 mg) by mouth every 6 hours if needed for dizziness., Disp: , Rfl: methocarbamol (Robaxin) 750 mg tablet, Take 1 tablet (750 mg) by mouth 3 times a day., Disp: , Rfl: metoprolol succinate XL (Toprol-XL) 25 mg 24 hr tablet, Take 1 tablet (25 mg) by mouth early in themorning.., Disp: , Rfl: PARoxetine (Paxil) 20 mg tablet, Take 1 tablet (20 mg) by mouth once daily., Disp: , Rfl: polyethylene glycol (Glycolax, Miralax) 17 gram/dose powder, Mix 17 g of powder and drink once daily as needed., Disp: , Rfl: potassium chloride ER (Micro-K) 10 mEq ER capsule, Take 1 capsule (10 mEq) by mouth once daily., Disp: , Rfl: rosuvastatin (Crestor) 20 mg tablet, Take 1 tablet (20 mg) by mouth once daily., Disp: 90 tablet, Rfl: 3 tolterodine LA (Detrol LA) 2 mg 24 hr capsule, Take 1 capsule (2 mg) by mouth once a day on Wednesday,Wednesday, and Wednesday. Do not crush, chew, or split., Disp: , Rfl: valsartan (Diovan) 160 mg tablet, Take 1 tablet (160 mg) by mouth 2 times a day., Disp: 180 tablet,Rfl: 3 Assessment/Plan 1. Two-vessel coronary artery disease Follow Up In Cardiology 2. 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 Status post non-ST elevation myocardial infarction (NSTEMI) 4. PVD (peripheral vascular disease) ([facility]) 5. Abdominal aortic aneurysm (AAA), unspecified part, unspecified whether ruptured ([facility]) 6. Mixed hyperlipidemia 7. Essential hypertension 8. Type 2 diabetes mellitus without complication, without long-term current use of insulin (Multi) 9. Neuropathy 10. Chronic obstructive pulmonary disease, unspecified COPD type (Multi) 11. Current smoker 12. BMI 27.0-27.9,adult Scribe Attestation By signing my name below, I, Sage Price LPN attest that this documentation has been prepared under the direction and in the presence of Mychal Stern DO. Provider Attestation - Scribe documentation All medical record entries made by the Scribe were at my direction and personally dictated by me. Ihave reviewed the chart and agree that the record accurately reflects my personal performance of the history, physical exam, discussion and plan. documented in this [facility] Work Phone: [phone]) 935-685910-23-2024 Instructions* Patient Instructions* Lily Null LPN - 05/10/2024 11:10 AM EDT Please bring all medicines, vitamins, and herbal supplements with you when you come to the office. Prescriptions will not be filled unless you are compliant with your follow up appointments or have a follow up appointment scheduled as per instruction of your physician. Refills should be requested at the time of your visit. BMI was above normal measurement. Current weight: 75.3 kg (166 lb) Weight change since last visit (-) denotes wt loss -1 lbs Weight loss needed to achieve BMI 25: 16.1 Lbs Weight loss needed to achieve BMI 30: -13.9 Lbs Provided instructions on dietary changes Provided instructions on exercise. Monitor blood pressure, if greater than [address] the top notify Dr. Garcia documented in this [facility] Work Phone: [phone]) 164-189009-24-2024 History of Present illness Narrative* Mk Garcia MD - 04/11/2024 2:50 PM EDTAssociated Problem(s): Essential hypertension, benign (CMS/HCC) BP again low and stop hydrochlorothiazide. Increase water intake. Start norvasc. * Mk Garcia MD - 04/11/2024 2:50 PM EDTAssociated Problem(s): Type 2 diabetes mellitus with hyperglycemia, without long-term current use of insulin (CMS/HCC) BS controlled and A1C 6.0. Stick to ADA diet and limit carbs. * Mk Garcia MD - 04/11/2024 2:15 PM EDT Images from the original note were not included. Subjective Patient ID: Gopal Irving is a 73 y.o. male who presents for Follow-up (1 m/Feels weak/ dizzy). Follow up DM and HTN. Patient doesn't feel well today. Very lightheaded and off balance. Severe weakness and hard to walk. Symptoms worse when up and moving and feels like may pass out. Last visit BPlow and stopped hydrochlorothiazide. Daughter called about a week later stating BP 180 systolic andadvised to resume medication. BP then normalized and was doing well until today. No major changes and reports drinking well. BP low and feels off. Not checking BS away from office but A1C 6.0. Tries to eat well and stick to ADA diet. Denies signs of elevated BS such as polyuria, polyphagia or polydipsia. Review of Systems Constitutional: Negative for fatigue. Respiratory: Negative for cough, shortness of breath and wheezing. Cardiovascular: Negative for chest pain and palpitations. Gastrointestinal: Negative for abdominal pain, diarrhea, nausea and vomiting. Genitourinary: Negative for dysuria. Objective Physical Exam Constitutional: General: He is not in acute distress. Appearance: Normal appearance. HENT: Head: Normocephalic. Right Ear: Tympanic membrane and ear canal normal. Left Ear: Tympanic membrane and ear canal normal. Eyes: Extraocular Movements: Extraocular movements intact. Pupils: Pupils are equal, round, and reactive to light. Cardiovascular: Rate and Rhythm: Normal rate and regular rhythm. Heart sounds: No murmur heard. No friction rub. No gallop. Pulmonary: Breath sounds: Normal breath sounds. No wheezing, rhonchi or rales. Abdominal: General: Bowel sounds are normal. There is no distension. Palpations: Abdomen is soft. Tenderness: There is no abdominal tenderness. There is no guarding or rebound. Musculoskeletal: Left lower leg: No edema. Neurological: Mental Status: He is alert. Assessment/Plan Problem List Items Addressed This Visit Essential hypertension, benign (CMS/HCC) - Primary BP again low and stop hydrochlorothiazide. Increase water intake. Start norvasc. Relevant Medications amLODIPine (Norvasc) 5 MG tablet Type 2 diabetes mellitus with hyperglycemia, without long-term current use of insulin (CMS/HCC) BS controlled and A1C 6.0. Stick to ADA diet and limit carbs. documented in this encounterL[facility] [id number] History of Present illness Narrative* Mk Garcia MD - 03/14/2024 3:23 PM EDTAssociated Problem(s): Type 2 diabetes mellitus with hyperglycemia, without long-term current use of insulin (CMS/HCC) Not checking BS and due for A1C. Need to check BS once a day. Stick to ADA diet and limit carbs. * Mk Garcia MD - 03/14/2024 3:23 PM EDTAssociated Problem(s): Major depressive disorder, recurrent episode, mild (HCC) (CMS/HCC) Symptoms controlled with paxil and continue. * Mk Garcia MD - 03/14/2024 3:23 PM EDTAssociated Problem(s): Essential hypertension, benign (CMS/HCC) BP very low and likely causing symptoms. Stop hydrochlorothiazide. Monitor and if remains low decrease valsartan to once a day. * Mk Garcia MD - 03/14/2024 3:23 PM EDTAssociated Problem(s): DDD (degenerative disc disease), lumbar Pain stable and use norco PRN. Start PT. * Mk Garcia MD - 03/14/2024 2:45 PM EDT Images from the original note were not included. Subjective Patient ID: Gopal Irving is a 73 y.o. male who presents for Extremity Weakness (Patient states he gets weak and dizzy feels like he is going to pass out). Follow up DM, HTN, back pain, and depression. Patient not feeling well today. Very lightheaded and weak. If try to walk or stand legs get weak and give out. No longer having diarrhea. Tries to drink but daughter reports drinks a lot of pepsi and not water. BP very low today at 102/62. Still taking BP medication daily. Not checking BS away from office and due for A1C. Tries to eat well and stick to ADA diet. Denies signs of elevated BS such as polyuria, polyphagia or polydipsia. Depression controlled with paxil. Not down or sad and feels happier. Back pain unchanged. Pain in low back and across top hips. Pain radiates into gluteal region and down legs when severe. Pain worse with walking, bending, or standing. Using norco PRN and helps keep pain tolerable. Extremity Weakness Pertinent negatives include no abdominal pain, chest pain, coughing, fatigue, nausea or vomiting. Review of Systems Constitutional: Negative for fatigue. Respiratory: Negative for cough, shortness of breath and wheezing. Cardiovascular: Negative for chest pain and palpitations. Gastrointestinal: Negative for abdominal pain, diarrhea, nausea and vomiting. Genitourinary: Negative for dysuria. Musculoskeletal: Positive for extremity weakness. Objective Physical Exam Constitutional: General: He is not in acute distress. Appearance: Normal appearance. HENT: Head: Normocephalic. Right Ear: Tympanic membrane and ear canal normal. Left Ear: Tympanic membrane and ear canal normal. Eyes: Extraocular Movements: Extraocular movements intact. Pupils: Pupils are equal, round, and reactive to light. Cardiovascular: Rate and Rhythm: Normal rate and regular rhythm. Heart sounds: No murmur heard. No friction rub. No gallop. Pulmonary: Breath sounds: Normal breath sounds. No wheezing, rhonchi or rales. Abdominal: General: Bowel sounds are normal. There is no distension. Palpations: Abdomen is soft. Tenderness: There is no abdominal tenderness. There is no guarding or rebound. Musculoskeletal: Left lower leg: No edema. Neurological: Mental Status: He is alert. Assessment/Plan Problem List Items Addressed This Visit Essential hypertension, benign (CMS/HCC) BP very low and likely causing symptoms. Stop hydrochlorothiazide. Monitor and if remains low decrease valsartan to once a day. DDD (degenerative disc disease), lumbar Pain stable and use norco PRN. Start PT. Major depressive disorder, recurrent episode, mild (HCC) (CMS/HCC) Symptoms controlled with paxil and continue. Stage 3a chronic kidney disease (HCC) (CMS/HCC) Relevant Orders Basic metabolic panel Type 2 diabetes mellitus with hyperglycemia, without long-term current use of insulin ([facility]) - Primary Not checking BS and due for A1C. Need to check BS once a day. Stick to ADA diet and limit carbs. Relevant Orders Hemoglobin A1c Encounter for long-term current use of medication Relevant Orders CBC and differential documented in this encounterL[facility] [id number] [facility] noteKind[facility]04-[facility] History of Present illness Narrative* Bonifacio Stern, DO - 2023 11:10 AM EDT Subjective Gopal Irving is a 72 y.o. male Chief Complaint Follow-up 72-year-old gentleman here for 6-month follow-up and doing well without any cardiovascular events, complaints or nitrate usage or cardiovascular hospitalizations. We reviewed his medications, confirmed with his family members in regards to medical compliance. He has a history of multivessel PCI's, ongoing tobacco use 1 pack a day, diabetes, COPD, hypertension, and history of abdominal aortic graft treatment for AAA in the past Patient has known ASHD with previous PCI's of the proximal and mid LAD and RCA remotely, follow-up heart catheterization in 2021 revealed widely patent stents in the segments with diffuse distal RCA and LAD disease with preserved left ventricular function, treated conservatively. He ambulates to the office today by means of wheelchair for ease of ambulation. He is otherwise sedentary. We counseled him on tobacco cessation, compliance with current medical therapies as reviewed, we will follow-up in 6 months obtain labs and, continue with DAPT given his multi vascular and coronary disease. Review of Systems Neurological: Positive for vertigo. All other systems reviewed and are negative. Vitals: 11/09/23 1117 BP: 124/74 BP Location: Right arm Patient Position: Sitting Pulse: 60 Weight: 75.8 kg (167 lb) Height: 1.651 m (5' 5 ) Objective Physical Exam Constitutional: Appearance: Normal appearance. HENT: Nose: Nose normal. Neck: Vascular: No carotid bruit. Cardiovascular: Rate and Rhythm: Normal rate. Pulses: Normal pulses. Heart sounds: Normal heart sounds. Pulmonary: Effort: Pulmonary effort is normal. Abdominal: General: Bowel sounds are normal. Palpations: Abdomen is soft. Musculoskeletal: General: Normal range of motion. Cervical back: Normal range of motion. Right lower leg: No edema. Left lower leg: No edema. Skin: General: Skin is warm and dry. Neurological: General: No focal deficit present. Mental Status: He is alert. Psychiatric: Mood and Affect: Mood normal. Behavior: Behavior normal. Thought Content: Thought content normal. Judgment: Judgment normal. Allergies Metformin, Prednisone, and Codeine Current Medications Current Outpatient Medications: aspirin 81 mg EC tablet, Take 1 tablet (81 mg) by mouth once daily., Disp: , Rfl: cholecalciferol (Vitamin D-3) 50 MCG (2000 UT) tablet, Take 2 tablets (4,000 Units) by mouth once daily., Disp: , Rfl: clopidogrel (Plavix) 75 mg tablet, Take 1 tablet (75 mg) by mouth once daily., Disp: , Rfl: esomeprazole (NexIUM) [address] capsule, Take 1 capsule (40 mg) by mouth 2 times a day., Disp: , Rfl: FeroSuL 325 mg (65 mg iron) tablet, Take 1 tablet by mouth once daily., Disp: , Rfl: hydroCHLOROthiazide (HYDRODiuril) 25 mg tablet, Take 1 tablet (25 mg) by mouth once daily., Disp: ,Rfl: HYDROcodone-acetaminophen ([place]) 5-325 mg tablet, Take 1 tablet by mouth every 4 hours if needed for moderate pain (4 - 6) or severe pain (7 - 10). TAKE 1 TABLET EVERY 4 TO 6 HOURS NEEDED FOR PAIN., Disp: , Rfl: meclizine (Antivert) 25 mg tablet, Take 1 tablet (25 mg) by mouth every 6 hours if needed for dizziness., Disp: , Rfl: methocarbamol (Robaxin) 750 mg tablet, Take 1 tablet (750 mg) by mouth 3 times a day., Disp: , Rfl: metoprolol succinate XL (Toprol-XL) 50 mg 24 hr tablet, Take 1 tablet (50 mg) by mouth once daily.,Disp: 90 tablet, Rfl: 3 PARoxetine (Paxil) 20 mg tablet, Take 1 tablet (20 mg) by mouth once daily., Disp: , Rfl: polyethylene glycol (Glycolax, Miralax) 17 gram/dose powder, Take 17 g by mouth once daily as needed., Disp: , Rfl: potassium chloride ER (Micro-K) 10 mEq ER capsule, Take 1 capsule (10 mEq) by mouth once daily., Disp: , Rfl: rosuvastatin (Crestor) 40 mg tablet, Take 0.5 tablets (20 mg) by mouth once daily., Disp: , Rfl: tolterodine LA (Detrol LA) 2 mg 24 hr capsule, Take 1 capsule (2 mg) by mouth once a day on Wednesday,Wednesday, and Wednesday. Do not crush, chew, or split., Disp: , Rfl: valsartan (Diovan) 160 mg tablet, Take 1 tablet (160 mg) by mouth 2 times a day., Disp: 180 tablet,Rfl: 1 Assessment/Plan 1. Two-vessel coronary artery disease 2. Status post non-ST elevation myocardial infarction (NSTEMI) 3. Essential hypertension 4. Mixed hyperlipidemia 5. Type 2 diabetes mellitus without complication, without long-term current use of insulin (Multi) 6. Abdominal aortic aneurysm (AAA), unspecified part, unspecified whether ruptured ([facility]) 7. Current smoker 8. BMI 27.0-27.9,adult Scribe Attestation By signing my name below, I, Trinidad Null LPN, Scribe attest that this documentation has been prepared under the direction and in the presence of Mychal Stern DO. Provider Attestation - Scribe documentation All medical record entries made by the Scribe were at my direction and personally dictated by me. Ihave reviewed the chart and agree that the record accurately reflects my personal performance of the history, physical exam, discussion and plan. [facility] Work Phone: [phone]) 785-852204-23-2024 Instructions* Patient Instructions* Lily Null LPN - 2023 11:10 AM EDT Please bring all medicines, vitamins, and herbal supplements with you when you come to the office. Prescriptions will not be filled unless you are compliant with your follow up appointments or have a follow up appointment scheduled as per instruction of your physician. Refills should be requested at the time of your visit. BMI was above normal measurement. Current weight: 75.8 kg (167 lb) Weight change since last visit (-) denotes wt loss 42 lbs Weight loss needed to achieve BMI 25: 17.1 Lbs Weight loss needed to achieve BMI 30: -12.9 Lbs Provided instructions on dietary changes Provided instructions on exercise. documented in this [facility] Work Phone: 1(533) 456-588902-14-2024 History of Present illness Narrative* Mk Garcia MD - 09/01/2023 11:03 AM ESTAssociated Problem(s): Diarrhea due to drug Frequent loose stools and unclear etiology. Possibly related to medication and stop metformin. Increase dietary fiber. * Mk Garcia MD - 09/01/2023 10:30 AM EST Subjective Patient ID: Gopal Irving is a 72 y.o. male who presents for Follow-up (Loose stool for about 2 weeks). C/o diarrhea x 2 weeks. No pain or cramping in abdomen. Stool loose and soft but not watery. C/o urgency for BM and feels like need to go right away. At times having accidents and can't hold. ReportsBM only about once a day and typically in am when first get up. Normal appetite and no nausea or emesis. Not on miralax or fiber supplement. Takes metformin daily. Review of Systems Constitutional: Negative for fatigue. Respiratory: Negative for cough, shortness of breath and wheezing. Cardiovascular: Negative for chest pain and palpitations. Gastrointestinal: Negative for abdominal pain, diarrhea, nausea and vomiting. Genitourinary: Negative for dysuria. Objective Physical Exam Constitutional: General: He is not in acute distress. Appearance: Normal appearance. HENT: Head: Normocephalic. Right Ear: Tympanic membrane and ear canal normal. Left Ear: Tympanic membrane and ear canal normal. Eyes: Extraocular Movements: Extraocular movements intact. Pupils: Pupils are equal, round, and reactive to light. Cardiovascular: Rate and Rhythm: Normal rate and regular rhythm. Heart sounds: No murmur heard. No friction rub. No gallop. Pulmonary: Breath sounds: Normal breath sounds. No wheezing, rhonchi or rales. Abdominal: General: Bowel sounds are normal. There is no distension. Palpations: Abdomen is soft. Tenderness: There is no abdominal tenderness. There is no guarding or rebound. Musculoskeletal: Left lower leg: No edema. Neurological: Mental Status: He is alert. Assessment/Plan Problem List Items Addressed This Visit Diarrhea due to drug - Primary Frequent loose stools and unclear etiology. Possibly related to medication and stop metformin. Increase dietary fiber. documented in this encounterL[facility] [id number] Progress note Author Anton Fontenot [facility] July 07, 2023 11:05am Note Date/Time July 07, 2023 11:06am [facility] [address] [place] [address] Hospitalist Progress Note Signed Patient: Gopal Irving MR#: [id number] : 1950 Acct:[id number] Age/Sex: 72 / M Adm Date: 3 Loc: 4N Room: [address] [place] [address] Type: ADM IN Attending Dr: Anton Fontenot DO Copies to: ~ Date of Service: 07/07/2023 Subjective Subjective Narrative: Patient was seen and examined the bedside this morning. No acute events overnight. Reports 4 episodes of diarrhea since he has been admitted. His abdominal pain has improved as has his nausea. He denies much of an appetite atthe moment but requests his NG tube out. Relatively clear nonbilious fluid noted in the NG canister Physical Examination: GENERAL APPEARANCE: Alert, up in bed AAOx3, ill-appearing HEENT: NCAT, MMM NECK: Neck soft w/o masses, no JVD CARDIAC: Normal S1 and S2. No S3, S4 or murmurs. LUNGS: Clear to auscultation anteriorly ABDOMEN: Positive bowel sounds. Soft, nontender. No guarding or signs of an acute abdomen MUSCULOSKELETAL: No joint erythema or tenderness. EXTREMITIES: No clubbing, cyanosis or edema PSYCHIATRIC: Appropriate mood and affect Assessment and plan: 1. Acute ileus 2. Refractory nausea and vomiting 3. Abdominal pain 4. Coronary artery disease status post angioplasty x 12 5. History of AAA repair 6. Elevated troponin 7. Hypertension 8. Leukocytosis 9. Chronic kidney disease stage II-III 10. Diarrhea Clinically the patient appears bit better today. No tenderness is elicited on exam. I have sent stool studies. The presence of diarrhea could indicate his ileus is improving. He denies much of an appetite but is tolerating some ice chips and sips of water. I cautioned him to advance his diet slowly. I ordereda clear liquid diet and we will clamp his NG tube this morning. This can be removed this afternoon should he continue to tolerate p.o. Leukocytosis has down trended. Remains afebrile. He appears to have been prescribed Augmentin 2months ago with high-dose prednisone for upper respiratory infection. Had suicidal ideation in response to steroids and these were subsequently discontinued. I doubt this antibiotic course has led to C. difficile but will test. Exam Physical Exam Vital Signs: Temp Pulse Resp BP Pulse Ox O2 Del Method 98.9 F 77 18 153/90 H 96 Room Air 07/07/23 03:37 07/07/23 03:37 07/07/23 03:37 07/07/23 03:37 07/07/23 03:37 07/07/23 03:37 Objective Lab Results 07/07/23 04:22 07/07/23 04:22 Microbiology Results Microbiology 07/06/23 15:15 Nasopharyngeal SARS-CoV-2, Influenza & RSV (PCR) - Final Meds Allergies and Active Meds Allergies codeine Adverse Reaction (Verified 04/02/23 17:46) Palpitations Active Meds: Active Medications Generic Name Dose Route Start Last Admin Trade Name Freq PRN Reason Stop Dose Admin Acetaminophen 650 mg 07/06/23 17:40 Acetaminophen 325 Mg Tablet PO 07/05/24 17:39 Q6HR PRN Pain Scale 1 - 3 or fever Aspirin 81 mg 07/07/23 09:00 07/07/23 08:14 Aspirin 81 Mg Tab.Chew PO 07/06/24 08:59 81 mg DAILY KASSI Administration Atorvastatin Calcium 40 mg 07/06/23 22:00 07/06/23 22:33 Atorvastatin 40 Mg Tablet PO 07/05/24 21:59 40 mg QHS KASSI Administration Enoxaparin Sodium 40 mg 07/07/23 10:00 07/07/23 10:30 Enoxaparin 40 Mg/0.4 Ml Syringe SUBCUT 07/06/24 09:59 40 mg DAILY@10 KASSI Administration Hydromorphone HCl 0.5 mg 07/06/23 17:40 Hydromorphone 0.5 Mg/0.5 Ml Syringe IV-PUSH Q4H PRN Pain Scale 8 - 10 Lactated Ringer's 1,000 mls @ 75 mls/hr 07/06/23 17:45 07/07/23 08:13 Lactated Ringers IV 07/05/24 17:44 75 mls/hr .[id number] KASSI Administration Ketorolac Tromethamine 30 mg 07/06/23 17:40 07/07/23 09:51 Ketorolac Tromethamine 30 Mg/Ml Vial IV-PUSH 07/11/23 17:39 30 mg Q6H PRN Administration Pain Scale 4 - 7 Methocarbamol 750 mg 07/06/23 17:39 Methocarbamol 500 Mg Tablet PO 07/05/24 17:38 TID PRN Muscle Spasm Metoprolol Succinate 50 mg 07/07/23 09:00 07/07/23 08:14 Metoprolol Succinate 50 Mg Tab.Er.24h PO 07/06/24 08:59 50 mg DAILY KASSI Administration Ondansetron HCl 4 mg 07/06/23 17:45 Ondansetron 4 Mg/2 Ml Vial IV-PUSH 07/05/24 17:44 Q4H PRN Nausea And Vomiting Paroxetine HCl 20 mg 07/06/23 22:00 07/06/23 22:33 Paroxetine 20 Mg Tablet PO 07/05/24 21:59 20 mg HS KASSI Administration Sodium Chloride 0 ml 07/06/23 12:16 07/06/23 17:11 Sodium Chloride 0.9 % 10 Ml Syringe IV-PUSH 07/05/24 12:15 10 ml PRN PRN Administration Flush Tolterodine Tartrate 2 mg 07/07/23 18:18 Tolterodine 2 Mg Cap.Er.24h PO 07/06/24 18:17 MoWeFr KASSI Valsartan 160 mg 07/07/23 09:00 07/07/23 08:14 Valsartan 160 Mg Tablet PO 07/06/24 08:59 160 mg DAILY KASSI Administration A&P - Hospitalist Assessment/Plan (1) Ileus: Plan As above Documented By: Anton Fontenot DO 07/07/23 11 01 Signed By: <Electronically signed by Anton Fontenot DO> 07/07/23 [address] [facility] Work Phone: 1(431) 425-558112-20-2023 History and physical note Author Anton Fontenot [facility] July 06, 2023 10:35pm Note Date/Time July 06, 2023 5:56pm [facility] [address] [place] [address] Hospitalist H&P Signed Patient: Gopal Irving MR#: [id number] : 1950 Acct:[id number] Age/Sex: 72 / M Adm Date: 3 Loc: Room: [address] [place] [address] Type: ADM IN Attending Dr: Anton Fontenot DO Copies to: MD Anton Morales DO~ HPI DATE OF EXAMINATION: 07/06/23 CHIEF COMPLAINT: Abdominal pain HISTORY OF PRESENT ILLNESS: This patient is a 72-year-old male presenting to the emergency department today with complaints of abdominal pain, nausea and vomiting. The patient has a complex medical history including number of cardiac stents reportedly 12 of themin total. Furthermore a complex history including a AAA repair in 2021. It is reported that weakness onset of abdominal pain his vascular surgery was contacted who recommended he come to the ER emergently. His vitals on presentation were all stable. Initial blood pressure 147/77 mmHg. Repeat bloodpressure slightly higher 158/81 mmHg. With concern for acute vascular pathologyand known aneurysmal disease previously CT angiography of the chest, abdomen andpelvis was obtained no acute pathology was noted. Prior vascular stents all appeared stable. Fluid-filled loops were noted within the small bowel with milddistention. His stomach showed distention with both fluid and air present. Mild ileus is reported. He was provided fluids, pain control and IV antiemetic therapy with fentanyl and Zofran respectively, both intravenously. Despite these interventions the patient continued to exhibit nausea and vomiting and ongoing symptomatology. He was offered an NG tube which the patient elected to have placed due to the severity and refractory nature of his nausea. His other workup included a CBC with mild leukocytosis of 12.7. Monocyte distribution with is elevated at 27.57% and differential exhibited with predominance of neutrophils. He had no fevers. Slight abnormalities in his cardiac markers less severe than previous readings with a troponin of 27.8, BNP level of 246.0. COVID-19 testing negative. He was admitted to the [facility] floor for ongoing management of acute ileus and refractory nausea and vomiting. I personally saw this patient in September of this year when he was admitted with GIsymptoms and cardiac concerns with elevated troponin. His CA 19-9 was mildly elevated and his MRI at that time had revealed a pancreatic mass. Due to the complex nature of this it was recommended he follow-up with a tertiary care center after GI thought he would benefit from an endoscopic ultrasound. Initially reported he does not have pancreatic cancer and actually underwent a cholecystectomy in the intermediate. On arrival to the [facility] floor the patient is uncomfortable appearing but states he feels better than when he presented. His abdominal pain is generally better. He states he wants to have the NG tube out but does understand that this is necessary and has helped with his symptoms. Physical Examination: GENERAL APPEARANCE: Alert, up in bed AAOx3, ill-appearing HEENT: NCAT, MMM NECK: Neck soft w/o masses, no JVD CARDIAC: Normal S1 and S2. No S3, S4 or murmurs. LUNGS: Clear to auscultation anteriorly ABDOMEN: Positive bowel sounds. Soft, nontender. No guarding or signs of an acute abdomen MUSCULOSKELETAL: No joint erythema or tenderness. EXTREMITIES: No clubbing, cyanosis or edema PSYCHIATRIC: Appropriate mood and affect Assessment and plan: 1. Acute ileus 2. Refractory nausea and vomiting 3. Abdominal pain 4. Coronary artery disease status post angioplasty x 12 5. History of AAA repair 6. Elevated troponin 7. Hypertension 8. Leukocytosis 9. Chronic kidney disease stage II-III Conservative management of the patient's ileus with IV fluids, pain and nausea control. He is n.p.o. with sips and meds for now. I have ordered low intermittent suction for his NG tube this evening. If he is feeling better tomorrow we can clamp this and see how he tolerates clear liquids. I did add mary lipase to labs in the ER and this is normal. The previously noted pancreatic mass appears to have been appropriately worked up at outside facility and the initial concerns for possible malignancy have effectively been ruled out. His home medications orally have been ordered however are unlikely to be absorbed this evening however we will supplement intravenous therapies should the need arise. Given the severity of his symptoms he will undoubtedly need ongoing lab monitoring and gradual advancement of diet. Will await blood count. No indication for antibiotics presently. he subsequently admitted as an inpatient for a stay that will surpass greater than 2 midnights. Will consider GI and/or general surgery consultation pending clinical course. Review of Systems Review of Systems All other systems reviewed & are negative unless noted below or in HPI [facility] Medical History Aortic aneurysm COPD (chronic obstructive pulmonary disease) Problem List clean-up per request of Phys. [facility] Depression Problem List clean-up per request of Phys. [facility] Diabetes Problem List clean-up per request of Phys. [facility] GERD (gastroesophageal reflux disease) Problem List clean-up per request of Phys. [facility] Hypercholesteremia Problem List clean-up per request of Phys. [facility] Myocardial infarction acute Problem List clean-up per request of Phys. [facility] Smoker Problem List clean-up per request of Phys. [facility] Surgical History Coronary angioplasty status Problem List clean-up per request of Phys. [facility] H/O heart artery stent X12 Problem List clean-up per request of Phys. [facility] History of ear surgery Problem List clean-up per request of Phys. [facility]HR [facility] Family History Other No significant family history Social History Smoking Status: Current every day smoker Tobacco Type: cigarettes Substance Use Type: None Social History Comments: Trailor Meds Medications and Allergies Allergies codeine Adverse Reaction (Verified 04/02/23 17:46) Palpitations Home Medications aspirin 81 mg chewable tablet 81 mg PO DAILY 10/20/18 [History Confirmed 07/06/23] methocarbamol 750 mg tablet 750 mg PO TID PRN Muscle Spasm 10/20/18 [History Confirmed 07/06/23] paroxetine HCl 20 mg tablet (Paxil) 20 mg PO HS 10/20/18 [History Confirmed 07/06/23] rosuvastatin 20 mg tablet (Crestor) 20 mg PO DAILY 10/20/18 [History Confirmed 07/06/23] metformin 500 mg tablet 500 mg PO BID 07/27/21 [History Confirmed 07/06/23] tolterodine 2 mg tablet 2 mg PO QMWF 02/10/22 [History Confirmed 07/06/23] esomeprazole magnesium 40 mg capsule,delayed release 40 mg PO BID #60 caps 03/30/22 [Rx Confirmed 07/06/23] hydrocodone 5 mg-acetaminophen 325 mg tablet 1 tab PO Q6H PRN Pain 5 days #10 tabs 03/30/22 [Rx Confirmed 07/06/23] metoprolol succinate 50 mg tablet,extended release 24 hr 50 mg PO DAILY 30 days #30 tabs 09/29/22 [Rx Confirmed 07/06/23] ferrous sulfate 325 mg (65 mg iron) tablet (FeroSul) 65 mg PO DAILY 07/06/23 [History Confirmed 07/06/23] potassium chloride 10 mEq capsule,extended release 10 meq PO DAILY 07/06/23 [History Confirmed 07/06/23] valsartan 160 mg tablet 160 mg PO DAILY 07/06/23 [History Confirmed 07/06/23] Exam Physical Exam Vital Signs: Temp Pulse Resp BP Pulse Ox O2 Del Method 98 F 95 H 16 131/83 99 Room Air 07/06/23 12:17 07/06/23 17:24 07/06/23 17:24 07/06/23 17:24 07/06/23 17:24 07/06/23 17:24 Results Lab Results Labs: Laboratory Last Values Corrected WBC 12.7 X10E3/uL (4.1-10.5) H 07/06/23 13:15 Uncorrected WBC Count 12.7 x10E3/uL (4.1-10.5) H 07/06/23 13:15 RBC 4.72 X10E6/uL (3.90-5.60) 07/06/23 13:15 Hgb 13.5 g/dL (13.0-17.0) 07/06/23 13:15 Hct 41.1 % (38.8-50.0) 07/06/23 13:15 MCV 87.0 fl (83.5-101) 07/06/23 13:15 MCH 28.6 pg (27.5-35.2) 07/06/23 13:15 MCHC 32.9 g/dL (32.5-35.6) 07/06/23 13:15 RDW 16.0 % (12.0-14.8) H 07/06/23 13:15 Plt Count 153 x10E3/uL (150-450) 07/06/23 13:15 MPV 10.0 fl (6.6-10.1) 07/06/23 13:15 Neut % (Auto) 88.6 % (.) 07/06/23 13:15 Lymph % (Auto) 4.9 % (.) 07/06/23 13:15 Will % (Auto) 2.2 % (.) 07/06/23 13:15 Eos % (Auto) 3.7 % (.) 07/06/23 13:15 Baso % (Auto) 0.6 % (.) 07/06/23 13:15 Nucleat RBC Rel Count 0.1 /100 WBC (0-0.5) 07/06/23 13:15 Neut # (Auto) 11.2 x10E3/uL (1.8-7.7) H 07/06/23 13:15 Lymph # (Auto) 0.6 x10E3/uL (1.00-4.8) L 07/06/23 13:15 Will # (Auto) 0.3 x10E3/uL (0.0-0.8) 07/06/23 13:15 Eos # (Auto) 0.5 x10E3/uL (0.0-0.45) H 07/06/23 13:15 Baso # (Auto) 0.1 x10E3/uL (0.0-0.2) 07/06/23 13:15 Monocyte Dist Width 27.57 % (0.00-20.00) H 07/06/23 13:15 PT 12.5 Seconds (9.0-12.9) 07/06/23 13:15 INR 1.1 07/06/23 13:15 APTT 32.0 Seconds (25.1-36.5) 07/06/23 13:15 PHA Creatinine Clear 55.53 07/06/23 13:15 Sodium 141 mmol/L (136-145) 07/06/23 13:15 Potassium 4.0 mmol/L (3.5-5.1) 07/06/23 13:15 Chloride 108 mmol/L (98-107) H 07/06/23 13:15 Carbon Dioxide 24.5 mmol/L (21.0-31.0) 07/06/23 13:15 Anion Gap 12.5 mEq/L (6.0-15.0) 07/06/23 13:15 BUN 20 mg/dL (7-25) 07/06/23 13:15 Creatinine 1.08 mg/dL (0.70-1.30) 07/06/23 13:15 Est GFR (CKD-EPI) > 60.0 mL/Min 07/06/23 13:15 Glucose 147 mg/dL (70-100) H 07/06/23 13:15 Lactic Acid 1.8 mmol/L (0.5-2.2) 07/06/23 13:15 Calcium 9.4 mg/dL (8.6-10.3) 07/06/23 13:15 Total Bilirubin 0.5 mg/dl (0.3-1.0) 07/06/23 13:15 AST 14 U/L (13-39) 07/06/23 13:15 ALT 10 U/L (7-52) 07/06/23 13:15 Alkaline Phosphatase 104 U/L (34-104) 07/06/23 13:15 Troponin I High Sens 27.8 pg/mL (0.0-20.0) H 07/06/23 15:14 B-Natriuretic Peptide 246.0 pg/mL (5-100) H 07/06/23 13:15 Total Protein 7.1 gm/dL (6.4-8.9) 07/06/23 13:15 Albumin 3.9 gm/dL (3.5-5.7) 07/06/23 13:15 Globulin 3.2 gm/dL 07/06/23 13:15 Albumin/Globulin Ratio 1.2 07/06/23 13:15 Urine Color Yellow (Yellow) 07/06/23 13:57 Urine Appearance Clear (Clear) 07/06/23 13:57 Urine pH 5.5 (5.0-9.0) 07/06/23 13:57 Ur Specific [place] 1.021 (1.001-1.030) 07/06/23 13:57 Urine Protein 300 mg/dL (Negative) H 07/06/23 13:57 Urine Glucose (UA) Normal mg/dL (Normal) 07/06/23 13:57 Urine Ketones Negative (Negative) 07/06/23 13:57 Urine Occult Blood Negative (Negative) 07/06/23 13:57 Urine Nitrite Negative (Negative) 07/06/23 13:57 Urine Bilirubin Negative (Negative) 07/06/23 13:57 Urine Urobilinogen Normal mg/dL (Normal) 07/06/23 13:57 Ur Leukocyte Esterase Negative (Negative) 07/06/23 13:57 Urine RBC 3-4 /HPF (0-4) 07/06/23 13:57 Urine WBC 3-4 /HPF (0-4) 07/06/23 13:57 Ur Squamous Epith Cells 0-1 /HPF (0-2) 07/06/23 13:57 Urine Bacteria None seen (None Seen) 07/06/23 13:57 Hyaline Casts None seen /LPF (0-8) 07/06/23 13:57 SARS-CoV-2 Rap RNA(RT-PCR) Negative (Negative) 07/06/23 15:15 Microbiology Results Micro: Microbiology - Results from entire visit 07/06/23 15:15 Nasopharyngeal SARS-CoV-2, Influenza & RSV (PCR) - Final Assessment & Plan Assessment/Plan (1) Ileus: Plan As above IP vs OBS Justification Based on differential dx, clinical care plan, and risk of adverse events, if untreated, in my clinical judgement this patient requires an acute care setting as: INPATIENT because of an expectation of an over 2 midnight stay. Estimated length of stay (# of days): 3 Documented By: Anton Fontenot DO 07/06/23 17 48 Signed By: <Electronically signed by nAton Fontenot DO> 07/06/23 7969 [facility] Work Phone: 1(202) 771-650612-04-2023 Evaluation note* Encounter Date Diagnosis Assessment Notes Treatment Notes Treatment Clinical Notes Jun, Abdominal aortic aneurysm (AAA) without rupture, unspecified part (ICD-10 - I71.40) We reviewed today's abdominal duplex studies which show continued decrease of size of AAA. Previous ultrasound last year showed AAA 5.6 cm, today 4.8 cm. Bilateral iliac aneurysms remained stable at 3.4 cm bilaterally. He has no abdominal complaints whatsoever, remains with a good appetite, and denies any pain. We will continue to follow him on an annual basis, he knows to call us with any issues or concerns prior to his next scheduled appointment. Jun, Other specified postprocedural states (ICD-10 - Z98.890) Jun, Personal history of other diseases of the circulatory system (ICD-10 - Z86.79) Mobile Messenger Other 06-01-2023 NotePatient Name: Gopal Irving Procedure Date: 12/17/2022 9:41 AM Date of : 1950 Admit Type: Outpatient Site: [facility] 1 Ethnicity: Not or Race: White Attending MD: Alyssia Weber MD, [id number] Procedure: ERCP Indications: Follow-up of bile duct stone(s), Follow-up of ascending cholangitis, Biliary stent removal Patient Profile: This is a 72 year old male. Refer to note in patient chart for documentation of history and physical. Providers: Alyssia Weber MD (Doctor), Jeevan Mcgovern RN (Nurse), Balbina Schuler, Sociology Teacher Referring: Medicines: General Anesthesia Complications: No immediate [...] the physician, the nurse, the anesthesiologist, the string winding machine operator and the pbx technician in the procedure room. Mental Status [...] patient tolerated the procedure well. Findings: A hat cutter film of the abdomen was obtained. Surgical clips, consistent with a previous cholecystectomy, were seen in the area of the right upper quadrant of the abdomen. A biliary stent was visible on the hat cutter film. The esophagus was successfully intubated under [...] at the right intrahepatic duct(s). Sludge was s (more content not included)...[employer]ATION - 11-12-2022 NoteSend Summary: Discharge Summary Providers: Provider RoleProvider Name Franky Calvillo Kristen Nurse PractitionerErin Silva Marc A Note Recipients: x Discharge: Summary: Admission Date: .11-Nov-2022 07:58:00 Discharge Date: 12-Nov-2022 Attending Physician at Discharge: Srinivasan Admission Reason: History of cholangitis requiring ERCP and stent(1) Final Discharge Diagnoses: Same Procedures: Date: 11-Nov-2022 11:27:00 Procedure Name: 1. Laparoscopic cholecystectomy with intraoperative cholangiogram 2. 3. 4. 5. Hospital Course: Admitted for elective cholecystectomy Laparoscopic cholecystectomy accomplished Patient stayed overnight for observation. Patient discharged home on first postoperative day Discharge Information: and Continuing Care: Lab Results - Pending: Surgical Pathology Drawn at 11-Nov-2022 11:18:00 Radiology Results - Pending: None Discharge Instructions: x Follow Up Appointments: Follow-up with Dr. Mattson in 10 to 14 days Discharge Medications: Same as preop plus Tylenol 3 Electronic Signatures: Franky Mattson) (Signed 12-Nov-2022 12:39) Authored: Send Summary, Summary Content, Ongoing Care, Note Completion Last Updated: 12-Nov-2022 12:39 by Franky Mattson) References: 1. Data Referenced From Consult-General Internal Medicine 11-Nov-2022 14:35[facility]04-26-2023 NotePost Operative Note: PreOp Diagnosis: History of cholangitis requiring ERCP and stent Post-Procedure Diagnosis: Same Procedure: 1. Laparoscopic cholecystectomy with intraoperative cholangiogram 2. 3. 4. 5. Surgeon: Srinivasan Resident/Fellow/Other Guest Experience Representative: Anesthesia: General Estimated Blood Loss (mL): Minimal Specimen: yes Findings: IOC good Operative Report Dictated: Dictation: yes Date of Dictation: 11-Nov-2022 Attestation: Note Completion: Attending AttestationI performed the procedure without a resident Electronic Signatures: Franky Mattson) (Signed 11-Nov-2022 11:28) Authored: Post Operative Note, Note Completion Last Updated: 11-Nov-2022 11:28 by Franky Mattson)[facility] 11-11-2022 NoteHistory & Physical Reviewed: I have reviewed the History and Physical dated: 09-Nov-2022 History and Physical reviewed and relevant findings noted. Patient examined to review pertinent physical findings.: No significant changes Home Medications Reviewed: no changes noted Allergies Reviewed: no changes noted ERAS (Enhanced Recovery After Surgery): ERAS Patient: no Consent: COVID-19 Consent: COVID-19 Risk ConsentSurgeon has reviewed carrera risks related to the risk of alona COVID-19 and if they contract COVID-19 what the risks are. Electronic Signatures: Franky Mattson) (Signed 11-Nov-2022 08:13) Authored: History & Physical Reviewed, ERAS, Consent, Note Completion Last Updated: 11-Nov-2022 08:13 by Franky Mattson)[facility] 2022 NoteHistory of Present Illness: HPI: GOPAL IRVING is a 72 year old Male who presents for elective cholecystectomy. Patient initially presented with abdominal pain and abnormal liver function test. He was transferred to [facility]. He was found to have choledocholithiasis and evidence of cholangitis. He underwent emergency ERCP and stent placement. Stones were removed. Patient went on to convalesce. Patient presents now for cholecystectomy Past medical history/ Coronary artery disease History of multiple stents Preoperative cardiac clearance obtained Peripheral vascular disease Status post stenting of his iliacs Hypertension NIDDM Tobacco abuse and COPD Elevated lipids Social/ Active smoker Family/ Noncontributory Comorbidities: Comorbidites: Comorbid Conditionschronic obstructive pulmonary disease, diabetes, hypertension COPDunknown Diabetes Typeunknown Insulin Dependentunknown DM Acuity or Statusunknown DM Complicationsunknown Allergies: No Known Allergies: Medications Prior to Admission: Admission Medication Reconciliation has not been completed for this patient. Review of Systems: Constitutional: NEGATIVE: Fever, Chills, Anorexia, Weight Loss, Malaise Eyes: NEGATIVE: Blurry Vision, Drainage, Diploplia, Redness, Vision Loss/ Change ENMT: NEGATIVE: Nasal Discharge, Nasal Congestion, Ear Pain, Mouth Pain, Throat Pain Respiratory: NEGATIVE: Dry Cough, Productive Cough, Hemoptysis, Wheezing, Shortness of Breath Cardiac: NEGATIVE: Chest Pain, Dyspnea on Exertion, Orthopnea, Palpitations, Syncope Gastrointestinal: NEGATIVE: Nausea, Vomiting, Diarrhea, Constipation, Abdominal Pain Genitourinary: NEGATIVE: Discharge, Dysuria, Flank Pain, Frequency, Hematuria Musculoskeletal: NEGATIVE: Decreased ROM, Pain, Swelling, Stiffness, Weakness Neurological: NEGATIVE: Dizziness, Confusion, Headache, Seizures, Syncope Psychiatric: NEGATIVE: Mood Changes, Anxiety, Hallucinations, Sleep Changes, Suicidal Ideas Skin: NEGATIVE: Mass, Pain, Pruritus, Rash, Ulcer Objective: Physical Exam by System: Constitutional: Well developed, awake/alert/oriented x3, no distress, alert and cooperative Eyes: Sclera clear Head/Neck: Neck supple, no apparent injury, thyroid without mass or tenderness, No JVD, trachea midline, no bruits Respiratory/Thorax: Patent airways, CTAB, normal breath sounds with good chest expansion, thorax symmetric Cardiovascular: Regular, rate and rhythm, no murmurs, 2+ equal pulses of the extremities, normal S 1and S 2 Gastrointestinal: Soft and nontender, no Torres sign Musculoskeletal: ROM intact, no joint swelling, normal strength Extremities: normal extremities, no cyanosis edema, contusions or wounds, no clubbing Neurological: alert and oriented x3, intact senses, motor, response and reflexes, normal strength Radiology Results: Results: Impression: Angio Consult for Body Angiography [Oct 05 2022 1:47PM] Impression: No acute finding in the chest with no evidence of pulmonary embolism. Acute cholecystitis. Patent aorto bi iliac stent. No endoleak. Excluded sac of infrarenal abdominal aortic aneurysm measures up to 5.2 x 4.4 cm axial plane. Excluded sacs of the right and left common iliac arteries measure up to 2.7 and 2.5 cm, respectively. Trace pelvic ascites. Other chronic findings as above. CTA Chest Abdomen + Pelvis [Oct 05 2022 12:13PM] Assessment and Plan: Assessment: Assessment/ Symptomatic cholelithiasis and prior episode of cholangitis requiring ERCP and stent placement Multiple comorbidities to include coronary artery disease, COPD, tobacco abuse, hypertension Plan/ Extensive conversation carried out with patient and family regarding possible cholecystectomy. All parties understand patient carries much higher than average risk for adverse events given his multiple issues. Again note made of a multiple cardiac stents as well as the COPD. Patient on acknowledges risks and asked to proceed with surgery Risk benefits indications for surgery are again reviewed. Potential bleeding infection CT PE etc. reviewed. The anticipated convalescence is reviewed. Potential need to convert from a laparoscopic to an open procedure reviewed. Strategies for dealing with common bile duct stones to include open endoscopic and laparoscopic procedures were reviewed. All questions were answered and consent was obtained. Issues right coronavirus are also reviewed Electronic Signatures: Franky Mattson) (Signed 09-Nov-2022 10:28) Authored: History of Present Illness, Comorbidities, Allergies, Medications Prior to Admission, Review of Systems, Objective, Assessment and Plan, Note Completion Last Updated: 09-Nov-2022 10:28 by Rip Mattson (more content not included)... [facility]03-23-2023 NoteSend Summary: Discharge Summary Providers: Provider RoleProvider Name Jarvis Tirado Bethany Duff Robert C PrimaryNaderer, Marc A Note Recipients: Mk Garcia MD - [id number] [] Franky Mattson MD HOSMER, AMY E Discharge: Summary: Admission Date: .05-Oct-2022 09:34:00 Discharge Date: 08-Oct-2022 Attending Physician at Discharge: Bethany Kelly Admission Reason: Acute on chronic abdominal pain(1) Final Discharge Diagnoses: Choledocholithiasis with cholecystitis Nutrition Diagnosis: Agree with dietitians assessment and diagnoses as stated. A new diagnosis of Severe malnutrition related to chronic disease or condition as evidence by persistent abd pain resulting in inconsistent oral intakes >1 month and severe fat and muscle mass wasting. Pt's weight loss is >1 yr ago of reported unknown origin.. Procedures: none Condition at Discharge: Fair Disposition at Discharge: .Home Vital Signs: T PRBPMAPSpO2 [id number]% Date/Time10/07 23: 23: 23: 23: 23:00 Range(35.8C - 36.7C ) (55 - 85 ) (16 - 18 ) (112 - 211 )/ (64 - 92 ) (95% - 98% ) Date: Weight/Scale Type:Height: 08-Oct-2022 07:0058 kg Physical Exam: Constitutional: Well developed, no distress, alert and cooperative. Eyes: EOMI, clear sclera Head/Neck: Normocephalic, atraumatic without lesions Respiratory/Thorax: Airways CTA bilaterally, no accessory muscle use Cardiovascular: Regular rhythm, no murmurs, 2+ equal pulses of the extremities, normal S1 and S2 Gastrointestinal: Nondistended, soft, non-tender, no rebound tenderness or guarding, +BS in all four quadrants Musculoskeletal: Normal and Equal strength Extremities: No edema Neurological: alert and oriented x3, intact senses, motor Psychological: Appropriate mood and behavior Skin: Warm and dry, No Rashes Hospital Course: #Choledocholithiasis s/p ERCP with plastic biliary stent placement 10/05 -Improving symptomatically, tolerating low fat diet -Continue Zosyn, likely to complete 7-10 day abx course pending ongoing improvement -PT/OT, bowel regimen, pain control, advance diet as tolerated -Follow up with surgery for cholecystectomy in 3-4 weeks -Follow up with GI for stent removal pending cholecystectomy timing #Pancreatic cyst c/f IPMN -CA-19-9 mildly elevated -Follow up with GI outpatient The patient symptomatically improved on IV Zosyn and will be discharged on an 8-day course of Augmentin to complete a total of 10 days antibiotic therapy. He will follow-up with general surgery for cholecystectomy and GI for biliary stent removal. He was offered home health services, which she refused. He is instructed to return with any fever/chills, worsening abdominal discomforts or inability of p.o. intake. Discharge Information: and Continuing Care: Lab Results - Pending: Culture, Blood Drawn at 05-Oct-2022 12:45:00 Culture, Blood Drawn at 05-Oct-2022 12:43:00 Radiology Results - Pending: None Discharge Instructions: Additional Orders: Additional Instructions: Please follow up with your primary care provider within 7 days for hospital follow up. Please call to make this appointment. Please take your medications as prescribed. Augmentin twice daily for 8 days, take with food. If you have any new or worsening symptoms seek medical attention. Thank you for allowing us to participate in your care! -[facility] Inpatient Medicine Teaching Service. Home Care Certification: Home Care Agency: Home Team Skilled Disciplines Ordered: RN/CHURCH MUSICIAN, PT, OT Home Care Services: Home Care Skilled Service: assessment, Rehab (PT/OT/SP eval and treat) Follow Up Appointments: Follow-Up Appointment 01: Physician/Dept/Service: Dr. Mk Garcia Reason for Referral: Hospital follow up Call to Schedule in: 2-3 days Follow-Up Appointment 02: Physician/Dept/Service: Dr. Mattson Reason for Referral: Gallbladder surgery Call to Schedule in: 3 weeks Scheduled Date/Time: 13-Oct-2022 01:00 Location: [address] [place] [address] Follow-Up Appointment 03: Physician/Dept/Service: Dr. Weber Reason for Referral: Biliary Stent Removal Call to Schedule in: 3 weeks Discharge Medications: Home Medication Aspir 81 oral delayed release tablet - 1 tab(s) orally once a day esomeprazole 40 mg oral delayed release capsule - 1 cap(s) orally 2 times a day losartan 50 mg oral tablet - 1 tab(s) orally once a day metFORMIN 500 mg oral tablet, extended release - 1 tab(s) orally 2 times a day metoprolol succinate 50 mg oral tablet, extended release - 1 tab(s) orally once a day PARoxetine 20 mg oral tablet - 1 tab(s) orally once a day (at bedtime) MiraLax oral po (more content not included)...[facility]03-20-2023 NoteHistory of Present Illness: HPI: GOPAL IRVING is a 71 year old Male with a past medical history of AAA s/p endovascular repair, left iliac artery aneurysm, HTN, current smoker, NIDDM 2, and HLD, who presented to [facility] with chronic abdominal pain and plans for pancreatic biopsy. He has been following with physicians at [facility] in [place] for chronic medical problems and most recently a pancreatic mass found on CT. Patient presenting with acute on chronic abdominal pain that been going on for months with extensive work-up at [facility]. He and his family state that symptoms have been going on for many months, beginning after his AAA repair with up to 100 pound weight loss since that time. He was scheduled for pancreatic biopsy with Dr. Weber here today but presented with significant RUQ pain. He had been having intermittent abdominal pain that has become more constant and severe over the past couple of weeks. He was advised to go to the ER for further evaluation. ED Course: Vital signs, Temp 36.9, HR 79, RR 16, SpO2 96% on room air, BP 98/64. Labs significant for WBC 23.4, Mag 1.4, Alk phos 337, AST 116, ALT 65, bilirubin 2.1, troponin 43, lactate of 2.5. CTA of the chest, abdomen, and pelvis showed marked gallbladder wall thickening with surrounding fat stranding, consistent with acute cholecystitis. Diffuse hepatic steatosis. Patient became increasingly hypotensive with BP as low as 60s/40s. He was fluid responsive but remained borderline hypotensive at 90s/60s with baseline hypertension. General surgery was consulted for possible cholecystectomy but patient was determined to be too unstable for OR course. GI was consulted for ERCP at that time. Patient eventually became normotensive after 3L of crystalloid resuscitation. He was taken to the endoscopy suite for ERCP with Dr. Weber. ERCP with biliary sphincterotomy, stone removal, and removal of copious amounts of pus. Plastic biliary stent was placed. Patient was brought to ICU for further management overnight. PSH: endovascular AAA repair 07/2021 Family Hx: noncontributory Social: 1 PPD smoker, no alcohol, recreational drug use Comorbidities: Comorbidites: Comorbid Conditionsdiabetes, hypertension Diabetes TypeType 2 Insulin Dependentno DM Acuity or Statusunknown DM Complicationsnone Social History: Social History: Smoking Statusmoderate user (uses 11-30 cig/day, OR 0.5-1.5 ppd, OR 2-3 cans/pouches loose leaf tobacco per week, OR 0.5-1.5 vape pods per day) (1) Alcohol Usedenies(1) Drug Usedenies (1) Medications Prior to Admission: [place] 5 mg-325 mg oral tablet: 1 tab(s) orally every 6 hours, As Needed - for pain Aspir 81 oral delayed release tablet: 1 tab(s) orally once a day esomeprazole 40 mg oral delayed release capsule: 1 cap(s) orally 2 times a day losartan 50 mg oral tablet: 1 tab(s) orally once a day metFORMIN 500 mg oral tablet, extended release: 1 tab(s) orally 2 times a day metoprolol succinate 50 mg oral tablet, extended release: 1 tab(s) orally once a day PARoxetine 20 mg oral tablet: 1 tab(s) orally once a day (at bedtime) MiraLax oral powder for reconstitution: 17 gram(s) orally once a day rosuvastatin 40 mg oral tablet: 0.5 tab(s) orally once a day (at bedtime) tolterodine 2 mg oral capsule, extended release: 1 cap(s) orally Wednesday, Wednesday, and Wednesday ferrous sulfate 325 mg (65 mg elemental iron) oral tablet: 1 tab(s) orally once a day. Review of Systems: Constitutional: NEGATIVE: Fever, Chills, Anorexia, Weight Loss, Malaise Eyes: NEGATIVE: Blurry Vision, Drainage, Diploplia, Redness, Vision Loss/ Change ENMT: NEGATIVE: Nasal Discharge, Nasal Congestion, Ear Pain, Mouth Pain, Throat Pain Respiratory: NEGATIVE: Dry Cough, Productive Cough, Hemoptysis, Wheezing, Shortness of Breath Cardiac: NEGATIVE: Chest Pain, Dyspnea on Exertion, Orthopnea, Palpitations, Syncope Gastrointestinal: POSITIVE: Nausea, Abdominal Pain Genitourinary: NEGATIVE: Discharge, Dysuria, Flank Pain, Frequency, Hematuria Musculoskeletal: NEGATIVE: Decreased ROM, Pain, Swelling, Stiffness, Weakness Neurological: NEGATIVE: Dizziness, Confusion, Headache, Seizures, Syncope Psychiatric: NEGATIVE: Mood Changes, Anxiety, Hallucinations, Sleep Changes, Suicidal Ideas Skin: NEGATIVE: Mass, Pain, Pruritus, Rash, Ulcer Endocrine: NEGATIVE: Heat Intolerance, Cold Intolerance, Sweat, Polyuria, Thirst Hematologic/Lymph: NEGATIVE: Anemia, Bruising, Easy Bleeding, Night Sweats, Petechiae Allergic/Immunologic: NEGATIVE: Anaphylaxis, Itchy/ Teary Eyes, Itching, Sneezing, Swelling Breast: NEGATIVE: Pain, Mass, Discharge, Nipple Itching, Gynecomastia All Other Systems: All other systems reviewed and are negative Objective: Objective Information: Objective Information T PRBPMAPSpO2 [id number]% Date/Time10/05 10: 14: 14: 14: (more content not included)... [facility]03-20-2023 Reason for referral (narrative)* Reason 10/05/[address] Weber for pancreatic lesion. Referral faxed. Diagnosis 1 Pancreatic lesion (K 86.9) Referral Organization [facility] Gastroenterolo gy Referring Provider First Name Yemi Referring Provider Last Name Jean Claude Referring Provider Specialty Gastroenter ology Referred Organization [facility] Referred Address [address] [place] [address] ,[place], [place],[address] Referred Provider Specialty Gastroentero logy Referral Priority Routine Referral Appointment Date 2022-10-05 General Notes Taina Savage 0 09/29/2022 01:06:15 PM > Referral faxed by office. Taina Savage 10/06/2022 11:08:24 AM > Faxed letter to follow up. Taina Savage 10/07/2022 11:18:12 AM > ERCP results received from Dr. Weber and assigned to Dr. Silverio for review. Closing referral at this time. [employer] Other 03-14-2023 Evaluation note* Encounter Date Diagnosis Assessment Notes Treatment Notes Treatment Clinical Notes Sep, Pancreatic lesion (ICD-10 - K86.9) [employer] Other 12-12-2022 Hospital Discharge instructions Patient Education 06/29/2022 08:48:44 Benign Prostatic Hyperplasia Benign Prostatic Hyperplasia Benign prostatic hyperplasia (BPH) is an enlarged prostate gland that is caused by the normal agingprocess and not by cancer. The prostate is a walnut-sized gland that is involved in the production of semen. It is located in front of the rectum and below the bladder. The bladder stores urine and the urethra is the tube that carries the urine out of the body. The prostate may get bigger as a man gets older. An enlarged prostate can press on the urethra. This can make it harder to pass urine. The build-up of urine in the bladder can cause infection. Back pressure and infection may progress to bladder damage and kidney (renal) failure. What are the causes? This condition is part of a normal aging process. However, not all men develop problems from this condition. If the prostate enlarges away from the urethra, urine flow will not be blocked. If it enlarges toward the urethra and compresses it, there will be problems passing urine. What increases the risk? This condition is more likely to develop in men over the age of 50 years. What are the signs or symptoms? Symptoms of this condition include: Getting up often during the night to urinate. Needing to urinate frequently during the day. Difficulty starting urine flow. Decrease in size and strength of your urine stream. Leaking (dribbling) after urinating. Inability to pass urine. This needs immediate treatment. Inability to completely empty your bladder. Pain when you pass urine. This is more common if there is also an infection. Urinary tract infection (UTI). How is this diagnosed? This condition is diagnosed based on your medical history, a physical exam, and your symptoms. Tests will also be done, such as: A post-void bladder scan. This measures any amount of urine that may remain in your bladder after you finish urinating. A digital rectal exam. In a rectal exam, your health care provider checks your prostate by putting a lubricated, gloved finger into your rectum to feel the back of your prostate gland. This exam detects the size of your gland and any abnormal lumps or growths. An exam of your urine (urinalysis). A prostate specific antigen (PSA) screening. This is a blood test used to screen for prostate cancer. An ultrasound. This test uses sound waves to electronically produce a picture of your prostate gland. Your health care provider may refer you to a specialist in kidney and prostate diseases (urologist). How is this treated? Once symptoms begin, your health care provider will monitor your condition (active surveillance or watchful waiting). Treatment for this condition will depend on the severity of your condition. Treatment may include: Observation and yearly exams. This may be the only treatment needed if your condition and symptoms are mild. Medicines to relieve your symptoms, including: ?Medicines to shrink the prostate. ?Medicines to relax the muscle of the prostate. Surgery in severe cases. Surgery may include: ?Prostatectomy. In this procedure, the prostate tissue is removed completely through an open incision or with a laparoscope or robotics. ?Transurethral resection of the prostate (TURP). In this procedure, a tool is inserted through the opening at the tip of the penis (urethra). It is used to cut away tissue of the inner core of the prostate. The pieces are removed through the same opening of the penis. This removes the blockage. ?Transurethral incision (TUIP). In this procedure, small cuts are made in the prostate. This lessens the prostate's pressure on the urethra. ?Transurethral microwave thermotherapy (TUMT). This procedure uses microwaves to create heat. The heat destroys and removes a small amount of prostate tissue. ?Transurethral needle ablation (TUNA). This procedure uses radio frequencies to destroy and remove a small amount of prostate tissue. ?Interstitial laser coagulation (ILC). This procedure uses a laser to destroy and remove a small amount of prostate tissue. ?Transurethral electrovaporization (TUVP). This procedure uses electrodes to destroy and remove a small amount of prostate tissue. ?Prostatic urethral lift. This procedure inserts an implant to push the lobes of the prostate away from the urethra. Follow these instructions at home: Take [id number] and prescription medicines only as told by your health care provider. Monitor your symptoms for any changes. Contact your health care provider with any changes. Avoid drinking large amounts of liquid before going to bed or out in public. Avoid or reduce how much caffeine or alcohol you drink. Give yourself time when you urinate. Keep all follow-up visits as told by your health care provider. This is important. Contact a health care provider if: You have unexplained back pain. Your symptoms do not get better with treatment. You develop side effects from the medicine you are taking. Your urine becomes very dark or has a bad smell. Your lower abdomen becomes distended and you have trouble passing your urine. Get help right away if: You have a fever or chills. You suddenly cannot urinate. You feel lightheaded, or very dizzy, or you faint. There are large amounts of blood or clots in the urine. Your urinary problems become hard to manage. You develop moderate to severe low back or flank pain. The flank is the side of your body between the ribs and the hip. These symptoms may represent a serious problem that is an emergency. Do not wait to see if the symptoms will go away. Get medical help right away. Call your local emergency services (911 in the [place] Do not drive yourself to the hospital. Summary Benign prostatic hyperplasia (BPH) is an enlarged prostate that is caused by the normal aging process and not by cancer. An enlarged prostate can press on the urethra. This can make it hard to pass urine. This condition is part of a normal aging process and is more likely to develop in men over the age of 50 years. Get help right away if you suddenly cannot urinate. This information is not intended to replace advice given to you by your health care provider. Make sure you discuss any questions you have with your health care provider. Document Released: 07/05/2006 Document Revised: 05/30/2019 Document Reviewed: 08/09/2017 [facility] Patient Education 2020 [employer]. Follow Up Care 01/02/2022 09:40:56 With:MICH SCHAFER, RORY Phillips Address: [facility] [address] , [place] [address]- When: Unknown [facility] 11-08-2022 Evaluation note* Encounter Date Diagnosis Assessment Notes Treatment Notes Treatment Clinical Notes May, Infrarenal abdominal aortic aneurysm (AAA) without rupture (ICD-10 - I71.43) May, Celiac artery stenosis (ICD-10 - I77.1) May, Other Abdominal aorti c aneurysm He has a reducing sac size after endovascular aneurysm repair with no evidence of endoleak. We will continue to follow him annually. Celiac artery stenosis Given his continued complaints of abdominal pain, difficulty with eating, and no other etiology for his symptoms we will go ahead with celiac artery stenting. He understands and agrees with that plan [employer] Other [facility]* Encounter Date Diagnosis Assessment Notes Treatment Notes Treatment Clinical Notes Feb, Abdominal aortic aneurysm (AAA) without rupture (ICD-10 - I71.4) Feb, Other Abdominal aorti c aneurysm Not clear to me that his symptoms are due to the celiac compression particular given that eating makes him feel better. He has upcoming gastroenterology evaluation and I will schedule him to return once that is complete. If no other etiology for his complaints are identified we could proceed with celiac artery stent placement. We will make that choice once he returns after his GI evaluation. [employer] Other 06-17-2022 Hospital Discharge instructions Patient Education 01/02/2022 09:32:21 Prostate Cancer Prostate Cancer The prostate is a walnut-sized gland that is involved in the production of semen. It is located below a man's bladder, in front of the rectum. Prostate cancer is the abnormal growth of cells in the prostate gland. What are the causes? The exact cause of this condition is not known. What increases the risk? This condition is more likely to develop in men who: Are older than age 65. Are -[place]. Are obese. Have a family history of prostate cancer. Have a family history of breast cancer. What are the signs or symptoms? Symptoms of this condition include: A need to urinate often. Weak or interrupted flow of urine. Trouble starting or stopping urination. Inability to urinate. Pain or burning during urination. Painful ejaculation. Blood in urine or semen. Persistent pain or discomfort in the lower back, lower abdomen, hips, or upper thighs. Trouble getting an erection. Trouble emptying the bladder all the way. How is this diagnosed? This condition can be diagnosed with: A digital rectal exam. For this exam, a health care provider inserts a gloved finger into the rectum to feel the prostate gland. A blood test called a prostate-specific antigen (PSA) test. An imaging test called transrectal ultrasonography. A procedure in which a sample of tissue is taken from the prostate and examined under a microscope (prostate biopsy). Once the condition is diagnosed, tests will be done to determine how far the cancer has spread. This is called staging the cancer. Staging may involve imaging tests, such as: A bone scan. A CT scan. A PET scan. An MRI. The stages of prostate cancer are as follows: Stage I. At this stage, the cancer is found in the prostate only. The cancer is not visible on imaging tests and it is usually found by accident, such as during a prostate surgery. Stage II. At this stage, the cancer is more advanced than it is in stage I, but the cancer has not spread outside the prostate. Stage III. At this stage, the cancer has spread beyond the outer layer of the prostate to nearby tissues. The cancer may be found in the seminal vesicles, which are near the bladder and the prostate. Stage IV. At this stage, the cancer has spread other parts of the body, such as the lymph nodes, bones, bladder, rectum, liver, or lungs. How is this treated? Treatment for this condition depends on several factors, including the stage of the cancer, your age, personal preferences, and your overall health. Talk with your health care provider about treatment options that are recommended for you. Common treatments include: Observation for early stage prostate cancer (active surveillance). This involves having exams, blood tests, and in some cases, more biopsies. For some men, this is the only treatment needed. Surgery. Types of surgeries include: ?Open surgery. In this surgery, a larger incision is made to remove the prostate. ?A laparoscopic prostatectomy. This is a surgery to remove the prostate and lymph nodes through several, small incisions. It is often referred to as a minimally invasive surgery. ?A robotic prostatectomy. This is a surgery to remove the prostate and lymph nodes with the help ofa robotic arm that is controlled by a computer. ?Orchiectomy. This is a surgery to remove the testicles. ?Cryosurgery. This is a surgery to freeze and destroy cancer cells. Radiation treatment. Types of radiation treatment include: ?External beam radiation. This type aims beams of radiation from outside the body at the prostate to destroy cancerous cells. ?Brachytherapy. This type uses radioactive needles, seeds, wires, or tubes that are implanted into the prostate gland. Like external beam radiation, brachytherapy destroys cancerous cells. An advantage is that this type of radiation limits the damage to surrounding tissue and has fewer side effects. High-intensity, focused ultrasonography. This treatment destroys cancer cells by delivering high-energy ultrasound waves to the cancerous cells. Chemotherapy medicines. This treatment kills cancer cells or stops them from multiplying. Hormone treatment. This treatment involves taking medicines that act on one of the male hormones (testosterone): ?By stopping your body from producing testosterone. ?By blocking testosterone from reaching cancer cells. Follow these instructions at home: Take [id number] and prescription medicines only as told by your health care provider. Maintain a healthy diet. Get plenty of sleep. Consider joining a support group for men who have prostate cancer. Meeting with a support group mayhelp you learn to cope with the stress of having cancer. Keep all follow-up visits as told by your health care provider. This is important. If you have to go to the hospital, notify your cancer specialist (oncologist). Treatment for prostate cancer may affect sexual function. Continue to have intimate moments with your partner. This may include touching, holding, hugging, and caressing. Contact a health care provider if: You have trouble urinating. You have blood in your urine. You have pain in your hips, back, or chest. Get help right away if: You have weakness or numbness in your legs. You cannot control urination or your bowel movements (incontinence). You have trouble breathing. You have sudden chest pain. You have chills or a fever. Summary The prostate is a walnut-sized gland that is involved in the production of semen. It is located below a man's bladder, in front of the rectum. Prostate cancer is the abnormal growth of cells in the prostate gland. Treatment for this condition depends on several factors, including the stage of the cancer, your age, personal preferences, and your overall health. Talk with your health care provider about treatment options that are recommended for you. Consider joining a support group for men who have prostate cancer. Meeting with a support group mayhelp you learn to cope with the stress of having cancer. This information is not intended to replace advice given to you by your health care provider. Make sure you discuss any questions you have with your health care provider. Document Released: 07/05/2006 Document Revised: 06/17/2018 Document Reviewed: 03/15/2017 [facility] Patient Education [employer]. Follow Up Care 06/09/2021 11:59:54 With:MICH SCHAFER, Reji Mathews, URL Address: [facility] [address], [place] [address]- [phone] When:07/04/2022 Comments:PSA, SELVIN [facility] 03-14-2022 Evaluation note* Encounter Date Diagnosis Assessment Notes Treatment Notes Treatment Clinical Notes Sep, Abdominal aortic aneurysm (AAA) without rupture (ICD-10 - I71.4) We reviewed patient's PVR studies along with recent abdominal CT which shows stable aneurysm sac. PVR studies of bilateral lower extremities are normal. Patient continues to do well overall. We will see him back in 6 months with repeat abdominal ultrasound for monitoring of AAA. He and his granddaughter state understanding of all discussion, agree with questions. [employer] Other 01-21-2022 Evaluation note* Encounter Date Diagnosis Assessment Notes Treatment Notes Treatment Clinical Notes Jul, Abdominal aortic aneurysm (AAA) without rupture (ICD-10 - I71.4) Jul, Other Weakness after AAA repair It appears that his iliac stents remain patent since he has palpable femoral pulses bilaterally. He does have known peripheral vascular disease that was documented prior to his intervention. He may be significantly anemic or its possible that his symptoms could be due to his cardiac disease. We will begin with a CT angiogram to confirm that his aneurysm has been successfully treated, repeat segmental Dopplers to see if his distal perfusion is unchanged from prior, CBC and BMP to look for significant anemia or change in his renal function that might account for his weakness. See him back once those are accomplished. [employer] Other 01-10-2022 History general Narrative - Reported* Type Description Date Medical History AAA Medical History Heart attack Medical History HTN Surgical History Bilat ear 1985 Surgical History Heart Stents (8) 2011 Surgical History Endovascular aneurysm repair Ash gallagher 07/2021 Surgical History Cardiac catheterization July 202107/2021 Hospitalization History No Hospitalization histo ry information [employer] Other 01-10-2022 History general Narrative - Reported* Type Description Date Medical History AAA Medical History Heart attack Medical History HTN Surgical History Bilat ear 1984 Surgical History Heart Stents (8) 2011 Surgical History Endovascular aneurysm repair Ash gallagher 07/2021 Surgical History Cardiac catheterization July 202107/2021 Hospitalization History see above [employer] Other Evaluation + Plan note Future Appointments Appointment Date:06/29/2022 12:15:00 PM Scheduled Provider:Reji EPPS MD Location:[facility] Appointment Type:URO Office Visit Diagnostic Tests Pending * PSA Total 01/02/[address] [facility] evaluation noteNo InformationNort TheShelf Other Evaluation noteNo assessment information available [facility] Work Phone: Evaluation note* Diagnosis Onset Date Resolution Status Abdominal pain acute Abnormal CT of the abdomen a cute Non-ST elevation myocardial infarction (NSTEMI), initial episode of care acute Hypertension chronic [facility] Work Phone: Evaluation note* Gastrointestinal: Abdomen soft and nontenderNondistendedNo Torres signEyes: Sclera clearConstitutional: Well developed, awake/alert/oriented x3, no distress, alert and cooperative [facility] Diagnosis Other specified complication of other internal prosthetic devices, implants and grafts, initial encounter Essential (primary) hypertension Unspecified essential hypertension Chronic obstructive pulmonary disease, unspecified (CMS/HCC) Type 2 diabetes mellitus without complications (CMS/HCC) Iron deficiency anemia, unspecified alf (current) use of aspirin alf (current) use of oral hypoglycemic drugs Encounter for fitting and adjustment of other gastrointestinal appliance and device documented in this encounter [facility] Work Phone: Evaluation note* Diagnosis Onset Date Resolution Status Ileus acute [facility] Work Phone: Evaluation note* Diagnosis Diarrhea due to drug- Primary Diarrhea documented in this encounter [facility]* Diagnosis Two-vessel coronary artery disease Status post non-ST elevation myocardial infarction (NSTEMI) Essential hypertension Unspecified essential hypertension Mixed hyperlipidemia Type 2 diabetes mellitus without complication, without long-term current use of insulin ([facility]) Abdominal aortic aneurysm (AAA), unspecified part, unspecified whether ruptured (CMS-HCC) Current smoker BMI 27.0-27.9,adult documented in this encounter [facility] Work Phone: Evaluation note* Diagnosis Ileus (CMS/HCC)- Primary Paralytic ileus Constipation due to opioid therapy Type 2 diabetes mellitus with hyperglycemia, without long-term current use of insulin (CMS/HCC)- Primary Essential hypertension, benign (CMS/HCC) Essential hypertension, benign DDD (degenerative disc disease), lumbar Degeneration of lumbar or lumbosacral intervertebral disc Diarrhea, unspecified type Vitamin D deficiency Major depressive disorder, recurrent episode, mild (HCC) (CMS/HCC) Major depressive disorder, recurrent episode, mild Gastroesophageal reflux disease without esophagitis Esophageal reflux Abdominal aortic aneurysm (AAA) without rupture, unspecified part (CMS/HCC) Type 2 diabetes mellitus with hyperglycemia, without long-term current use of insulin (CMS/HCC)- Primary Essential hypertension, benign (CMS/HCC) Essential hypertension, benign Major depressive disorder, recurrent episode, mild (HCC) (CMS/HCC) Major depressive disorder, recurrent episode, mild Stage 3a chronic kidney disease (HCC) (CMS/HCC) DDD (degenerative disc disease), lumbar Degeneration of lumbar or lumbosacral intervertebral disc Encounter for long-term current use of medication Essential hypertension, benign (CMS/HCC)- Primary Essential hypertension, benign Type 2 diabetes mellitus with hyperglycemia, without long-term current use of insulin (CMS/HCC) Type 2 diabetes mellitus with diabetic chronic kidney disease (CMS/HCC) Chronic kidney disease, stage 3b (HCC) (CMS/HCC) Type 2 diabetes mellitus with diabetic peripheral angiopathy without gangrene (CMS/HCC) Degeneration of cervical intervertebral disc documented in this encounter [facility]* Diagnosis Two-vessel coronary artery disease 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 Status post non-ST elevation myocardial infarction (NSTEMI) PVD (peripheral vascular disease) ([facility]) Unspecified peripheral vascular disease Abdominal aortic aneurysm (AAA), unspecified part, unspecified whether ruptured ([facility]) Mixed hyperlipidemia Essential hypertension Unspecified essential hypertension Type 2 diabetes mellitus without complication, without long-term current use of insulin ([facility]) Neuropathy Mononeuritis of unspecified site Chronic obstructive pulmonary disease, unspecified COPD type ([facility]) Current smoker BMI 27.0-27.9,adult documented in this encounter [facility] Work Phone: Evaluation note* Diagnosis Choledocholithiasis- Primary Calculus of bile duct without mention of cholecystitis or obstruction Belching Flatulence, eructation, and gas pain Abdominal discomfort Abdominal pain, unspecified site documented in this encounter [facility] Work Phone: Evaluation note* Diagnosis Choledocholithiasis Calculus of bile duct without mention of cholecystitis or obstruction Belching Flatulence, eructation, and gas pain Abdominal discomfort Abdominal pain, unspecified site documented in this encounter [facility] Work Phone: Evaluation note* Diagnosis Ileus ([facility])- Primary Paralytic ileus Constipation due to opioid therapy Type 2 diabetes mellitus with hyperglycemia, without long-term current use of insulin ([facility])- Primary Essential hypertension, benign ([facility]/HCC) Essential hypertension, benign DDD (degenerative disc disease), lumbar Degeneration of lumbar or lumbosacral intervertebral disc Diarrhea, unspecified type Vitamin D deficiency Major depressive disorder, recurrent episode, mild (HCC) ([facility]/HCC) Major depressive disorder, recurrent episode, mild Gastroesophageal reflux disease without esophagitis Esophageal reflux Abdominal aortic aneurysm (AAA) without rupture, unspecified part ([facility]/HCC) Type 2 diabetes mellitus with hyperglycemia, without long-term current use of insulin ([facility]/HCC)- Primary Essential hypertension, benign (CMS/HCC) Essential hypertension, benign Major depressive disorder, recurrent episode, mild (HCC) ([facility]/HCC) Major depressive disorder, recurrent episode, mild Stage 3a chronic kidney disease (HCC) ([facility]) DDD (degenerative disc disease), lumbar Degeneration of lumbar or lumbosacral intervertebral disc Encounter for long-term current use of medication Essential hypertension, benign (CMS/HCC)- Primary Essential hypertension, benign Type 2 diabetes mellitus with hyperglycemia, without long-term current use of insulin ([facility]/HCC) Type 2 diabetes mellitus with diabetic chronic kidney disease (CMS/HCC) Chronic kidney disease, stage 3b (HCC) (CMS/HCC) Type 2 diabetes mellitus with diabetic peripheral angiopathy without gangrene (CMS/HCC) Degeneration of cervical intervertebral disc documented in this encounter [facility] Healthcare[facility]* Diagnosis Degeneration of cervical intervertebral disc documented in this encounter [facility]* Diagnosis Type 2 diabetes mellitus with hyperglycemia, without long-term current use of insulin (CMS/HCC)- Primary Essential hypertension, benign (CMS/HCC) Essential hypertension, benign Major depressive disorder, recurrent episode, mild (HCC) ([facility]/HCC) Major depressive disorder, recurrent episode, mild Stage 3a chronic kidney disease (HCC) ([facility]/HCC) DDD (degenerative disc disease), lumbar Degeneration of lumbar or lumbosacral intervertebral disc Encounter for long-term current use of medication documented in this encounter [facility] note* Diagnosis Degeneration of cervical intervertebral disc documented in this encounter [facility] HealthcareEvaluation [facility]* Diagnosis Essential hypertension, benign (CMS/HCC)- Primary Essential hypertension, benign Type 2 diabetes mellitus with hyperglycemia, without long-term current use of insulin ([facility]) Type 2 diabetes mellitus with diabetic chronic kidney disease ([facility]/HCC) Chronic kidney disease, stage 3b (HCC) ([facility]/HCC) Type 2 diabetes mellitus with diabetic peripheral angiopathy without gangrene ([facility]/HCC) documented in this encounter [facility]* Diagnosis Ileus ([facility]/HCC)- Primary Paralytic ileus Constipation due to opioid therapy Type 2 diabetes mellitus with hyperglycemia, without long-term current use of insulin ([facility]/HCC)- Primary Essential hypertension, benign (CMS/HCC) Essential hypertension, benign DDD (degenerative disc disease), lumbar Degeneration of lumbar or lumbosacral intervertebral disc Diarrhea, unspecified type Vitamin D deficiency Major depressive disorder, recurrent episode, mild (HCC) ([facility]/HCC) Major depressive disorder, recurrent episode, mild Gastroesophageal reflux disease without esophagitis Esophageal reflux Abdominal aortic aneurysm (AAA) without rupture, unspecified part ([facility]/HCC) Type 2 diabetes mellitus with hyperglycemia, without long-term current use of insulin ([facility]/HCC)- Primary Essential hypertension, benign ([facility]/HCC) Essential hypertension, benign Major depressive disorder, recurrent episode, mild (HCC) (CMS/HCC) Major depressive disorder, recurrent episode, mild Stage 3a chronic kidney disease (HCC) (CMS/HCC) DDD (degenerative disc disease), lumbar Degeneration of lumbar or lumbosacral intervertebral disc Encounter for long-term current use of medication Essential hypertension, benign (CMS/HCC)- Primary Essential hypertension, benign Type 2 diabetes mellitus with hyperglycemia, without long-term current use of insulin (CMS/HCC) Type 2 diabetes mellitus with diabetic chronic kidney disease (CMS/HCC) Chronic kidney disease, stage 3b (HCC) (CMS/HCC) Type 2 diabetes mellitus with diabetic peripheral angiopathy without gangrene (CMS/HCC) Degeneration of cervical intervertebral disc documented in this encounter [facility]* Diagnosis Ileus (CMS/HCC)- Primary Paralytic ileus Constipation due to opioid therapy Type 2 diabetes mellitus with hyperglycemia, without long-term current use of insulin (CMS/HCC)- Primary Essential hypertension, benign (CMS/HCC) Essential hypertension, benign DDD (degenerative disc disease), lumbar Degeneration of lumbar or lumbosacral intervertebral disc Diarrhea, unspecified type Vitamin D deficiency Major depressive disorder, recurrent episode, mild (HCC) (CMS/HCC) Major depressive disorder, recurrent episode, mild Gastroesophageal reflux disease without esophagitis Esophageal reflux Abdominal aortic aneurysm (AAA) without rupture, unspecified part (CMS/HCC) Type 2 diabetes mellitus with hyperglycemia, without long-term current use of insulin (CMS/HCC)- Primary Essential hypertension, benign (CMS/HCC) Essential hypertension, benign Major depressive disorder, recurrent episode, mild (HCC) (CMS/HCC) Major depressive disorder, recurrent episode, mild Stage 3a chronic kidney disease (HCC) (CMS/HCC) DDD (degenerative disc disease), lumbar Degeneration of lumbar or lumbosacral intervertebral disc Encounter for long-term current use of medication Essential hypertension, benign (CMS/HCC)- Primary Essential hypertension, benign Type 2 diabetes mellitus with hyperglycemia, without long-term current use of insulin (CMS/HCC) Type 2 diabetes mellitus with diabetic chronic kidney disease (CMS/HCC) Chronic kidney disease, stage 3b (HCC) (CMS/HCC) Type 2 diabetes mellitus with diabetic peripheral angiopathy without gangrene (CMS/HCC) Degeneration of cervical intervertebral disc documented in this encounter [facility]* Diagnosis Ileus (CMS/HCC)- Primary Paralytic ileus Constipation due to opioid therapy Type 2 diabetes mellitus with hyperglycemia, without long-term current use of insulin (CMS/HCC)- Primary Essential hypertension, benign (CMS/HCC) Essential hypertension, benign DDD (degenerative disc disease), lumbar Degeneration of lumbar or lumbosacral intervertebral disc Diarrhea, unspecified type Vitamin D deficiency Major depressive disorder, recurrent episode, mild (HCC) ([facility]) Major depressive disorder, recurrent episode, mild Gastroesophageal reflux disease without esophagitis Esophageal reflux Abdominal aortic aneurysm (AAA) without rupture, unspecified part (CMS/HCC) Type 2 diabetes mellitus with hyperglycemia, without long-term current use of insulin (CMS/HCC)- Primary Essential hypertension, benign (CMS/HCC) Essential hypertension, benign Major depressive disorder, recurrent episode, mild (HCC) ([facility]) Major depressive disorder, recurrent episode, mild Stage 3a chronic kidney disease (HCC) ([facility]) DDD (degenerative disc disease), lumbar Degeneration of lumbar or lumbosacral intervertebral disc Encounter for long-term current use of medication Essential hypertension, benign ([facility]/HCC)- Primary Essential hypertension, benign Type 2 diabetes mellitus with hyperglycemia, without long-term current use of insulin ([facility]) Type 2 diabetes mellitus with diabetic chronic kidney disease ([facility]) Chronic kidney disease, stage 3b (HCC) ([facility]) Type 2 diabetes mellitus with diabetic peripheral angiopathy without gangrene ([facility]) Degeneration of cervical intervertebral disc Essential hypertension, benign (CMS/HCC) Essential hypertension, benign documented in this encounter [facility]* Diagnosis Essential hypertension- Primary Unspecified essential hypertension Two-vessel coronary artery disease Type 2 diabetes mellitus without complication, without long-term current use of insulin Mixed hyperlipidemia Abdominal aortic aneurysm (AAA), unspecified part, unspecified whether ruptured BMI 28.0-28.9,adult Current smoker documented in this encounter [facility] Work Phone: Evaluation note* Diagnosis Ileus (CMS/HCC)- Primary Paralytic ileus Constipation due to opioid therapy Type 2 diabetes mellitus with hyperglycemia, without long-term current use of insulin ([facility])- Primary Essential hypertension, benign ([facility] [facility] Essential hypertension, benign DDD (degenerative disc disease), lumbar Degeneration of lumbar or lumbosacral intervertebral disc Diarrhea, unspecified type Vitamin D deficiency Major depressive disorder, recurrent episode, mild (HCC) (CMS/HCC) Major depressive disorder, recurrent episode, mild Gastroesophageal reflux disease without esophagitis Esophageal reflux Abdominal aortic aneurysm (AAA) without rupture, unspecified part (CMS/HCC) Type 2 diabetes mellitus with hyperglycemia, without long-term current use of insulin (CMS/HCC)- Primary Essential hypertension, benign (CMS/HCC) Essential hypertension, benign Major depressive disorder, recurrent episode, mild (HCC) ([facility]/HCC) Major depressive disorder, recurrent episode, mild Stage 3a chronic kidney disease (HCC) ([facility]/HCC) DDD (degenerative disc disease), lumbar Degeneration of lumbar or lumbosacral intervertebral disc Encounter for long-term current use of medication Essential hypertension, benign ([facility]/HCC)- Primary Essential hypertension, benign Type 2 diabetes mellitus with hyperglycemia, without long-term current use of insulin ([facility]/HCC) Type 2 diabetes mellitus with diabetic chronic kidney disease ([facility]/HCC) Chronic kidney disease, stage 3b (HCC) ([facility]/HCC) Type 2 diabetes mellitus with diabetic peripheral angiopathy without gangrene ([facility]) Type 2 diabetes mellitus with hyperglycemia, without long-term current use of insulin ([facility]/HCC)- Primary Essential hypertension, benign (CMS/HCC) Essential hypertension, benign Degeneration of intervertebral disc of lumbar region with discogenic back pain and lower extremity pain Major depressive disorder, recurrent episode, mild (HCC) ([facility]/HCC) Major depressive disorder, recurrent episode, mild Vertigo Dizziness and giddiness Iron deficiency anemia secondary to inadequate dietary iron intake Encounter for long-term current use of medication Dyslipidemia ([facility]) Other and unspecified hyperlipidemia Fatigue, unspecified type Degeneration of 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 ([facility]/HCC) Chronic kidney disease, stage 3a (HCC) ([facility]/HCC) Type 2 diabetes mellitus with diabetic cataract ([facility]) Type II or unspecified type diabetes mellitus with ophthalmic manifestations, not stated as uncontrolled Type 2 diabetes mellitus with diabetic peripheral angiopathy without gangrene ([facility]) documented in this encounter [facility] and physical note Author Yemi Silverio [facility] March 30, 2022 1:26pm Note Date/Time March 30, 2022 1:26pm [facility] [address] [place] [address] Gastroenterology H&P Signed Patient: Gopal Irving MR#: [id number] : 1950 Acct:[id number] Age/Sex: 71 / M Adm Date: 2 Loc: Room: Type: [facility] Attending Dr: Yemi Silverio MD Copies to: MD Mk Cooley MD~ Date of Service: 03/30/2022 HISTORY & PHYSICAL: Patient's history with special attention to the cardiovascular, pulmonary systems and the current problem was reviewed with the patient immediately prior to the procedure. Present medications and doses reviewed in the EMR. Allergies and pertinent laboratory tests were also reviewedat this time in the EMR. The physical examination, as below, was then performed. Indication, assessment and HPI: 71-year-old male presents for EGD to evaluate history of abdominal pain, weight loss and early satiety Family history of GI malignancy? No PHYSICAL EXAMINATION Mouth and Pharynx : Moist mucus membranes, normal dentition Cardiac: Regular rate, regular rhythm Pulmonary: Clear to auscultation bilaterally, no wheezing Neurological: Alert and oriented x3, no focal deficits noted Abdomen: Abdomen soft, non-tender REVIEW OF SYSTEMS Constitutional: Denies malaise, fevers Cardiovascular: Denies chest pain, palpitations Respiratory: Denies shortness of breath, wheezing Gastrointestinal: Per HPI Genitourinary: Denies dysuria, polyuria Musculoskeletal: Denies joint swelling, joint stiffness Neurological: Denies numbness, tingling Integumentary: Denies rashes, skin lesions Endocrine: Denies fatigue, weight loss Written informed consent obtained from the patient. Risks (including but not limited to perforation, infection, bloating, bleeding, need for emergent surgeryand loss of life), benefits and alternatives explained and questions answered. The patient verbalized understanding. Based on history patient is an appropriate candidate for the procedure. Yemi Silverio MD Documented By: Yemi Silverio MD 03/30/221324 Signed By: <Electronically signed by Yemi Silverio MD> 03/30/221325 [facility] Work Phone: History and physical note Author Yemi Silverio [facility] January 19, 2024 10:53am Note Date/Time January 19, 2024 10:52 am [facility] [address] [place] [address] Gastroenterology H&P Signed Patient: Gopal Irving MR#: [id number] : 1950 Acct:[id number] Age/Sex: 73 / M Adm Date: 4 Loc: Room: Type: [facility] Attending Dr: Yemi Silverio MD Copies to: MD Mk Cooley MD~ Date of Service: 01/19/2024 HISTORY & PHYSICAL: Patient's history with special attention to the cardiovascular, pulmonary systems and the current problem was reviewed with the patient immediately prior to the procedure. Present medications and doses reviewed in the EMR. Allergies and pertinent laboratory tests were also reviewedat this time in the EMR. The physical examination, as below, was then performed. Indication, assessment and HPI: 73 yo M presents for colonoscopy to evaluate change in bowel habits with constipation and diarrhea and fecal incontinence Family history of GI malignancy? no PHYSICAL EXAMINATION Mouth and Pharynx : moist mucus membranes, normal dentition Cardiac: regular rate, regular rhythm Pulmonary: normal respiratory effort, able to speak in complete sentences Neurological: alert and oriented x3, no focal deficits noted Abdomen: Abdomen soft, non-tender REVIEW OF SYSTEMS Constitutional: Denies malaise, fevers Cardiovascular: Denies chest pain, palpitations Respiratory: Denies shortness of breath, wheezing Gastrointestinal: Per HPI Genitourinary: Denies dysuria, polyuria Musculoskeletal: Denies joint swelling, joint stiffness Neurological: Denies numbness, tingling Integumentary: Denies rashes, skin lesions Endocrine: Denies fatigue, weight loss Written informed consent obtained from the patient. Risks (including but not limited to perforation, infection, bloating, bleeding, need for emergent surgeryand loss of life), benefits and alternatives explained and questions answered. The patient verbalized understanding. Based on history patient is an appropriate candidate for the procedure. Yemi Silverio MD Documented By: Yemi Silverio MD 01/19/24 1050 Signed By: <Electronically signed by Yemi Silverio MD> 01/19/24 105 [facility] Work Phone: History general Narrative - Reported* Type Description Date Medical History AAA Medical History Heart attack Medical History HTN Medical History [ ] Surgical History Bilat ear 1984 Surgical History Heart Stents (8) 2011 Surgical History Endovascular aneurysm repair Ja nuary 07/2021 Surgical History Cardiac catheterization July 202107/2021 Surgical History [ ] Hospitalization History see above Mobile Messenger Other [place] [facility] Narrative - Reported* Type Description Date Medical History AAA Medical History Heart attack Medical History HTN Medical History [ ] Surgical History Bilat ear 1984 Surgical History Heart Stents (8) 2011 Surgical History Endovascular aneurysm repair Ja nuary 07/2021 Surgical History Cardiac catheterization July 202107/2021 Hospitalization History see above Mobile Messenger Other [facility] Narrative - Reported* Type Description Date Medical History AAA Medical History Heart attack Medical History HTN Medical History [ ] Medical History chronic depression Surgical History Bilat ear 1984 Surgical History Heart Stents (8) 2011 Surgical History Endovascular aneurysm repair Ja nuhockessin 07/2021 Surgical History Cardiac catheterization July 202107/2021 Hospitalization History see above Mobile Messenger Other History of Present illness Narrative* Follow-Up Note * I am seeing this patient on behalf of my partner Dr. Jalen Mattson, who is on PTO. * Chief Complaint: * Follow up from cholecystectomy * History of Present Illness: * This is a 72-year-old gentleman with history of cholelithiasis and cholangitis, ERCP, stent placement, with subsequent recovery. He presented for cholecystectomy with intraoperative cholangiogram November 11, 2022. He has been doing well since surgery, no nausea/vomiting, or diarrhea. He still continues to smoke about a PPD. * Past Medical History: * See Franky Mattson s office note 10/11/2022 * Past Surgical History: * See Franky Mattson s office note 10/11/2022 * Medications: * See Franky Mattson s office note 10/11/2022 * Allergies: * See Franky Mattson s office note 10/11/2022 * Family History: * See Franky Mattson s office note 10/11/2022 * Social History: * See Franky Mattson s office note 10/11/2022 * Review of Systems * A complete 10 point review of systems was performed and is negative except as noted in the history of present illness. * Vitals: See vital section below * Physical Exam: * General: No acute distress. * Neuro: Alert and oriented 3. Follows commands. * Head: Atraumatic * Eyes: Pupils equal reactive to light. Extraocular motions intact. * Ears: Hears normal speaking voice. * Mouth, Nose, Throat: Mucous membranes moist. Normal dentition. * Neck: Supple. No appreciable masses. * Chest: No crepitus. * Heart: Regular rate and rhythm. * Lung: Clear to auscultation bilaterally. * Vascular: No carotid bruits. Palpable radial pulses bilaterally. * Abdomen: Soft. Nondistended. Nontender. [place] at port sites, all healed but umbilicus. No stigmata of infection. * Musculoskeletal: Moves all extremities. Normal range of motion. * Lymphatic: No palpable lymph nodes. * Skin: No rashes or lesions. * Psychological: Normal affect * Pathology: Pathology has not yet resulted. Patient will receive a call and his pathology via mail * Assessment: * This is a 72 year-old male who presents for follow up of a laparoscopic cholecystectomy with IOC for cholelithiasis with complications of cholangitis. He has been doing very well since surgery. He has no complaints. There is no evidence of any obvious complications. [place] were removed and steri strips were placed. All port sites are healed except for umbilicus. It was washed out with peroxide and saline and two 3-0 Vicryl interrupted stitches were placed with stri strips over top. * A discussion was again had with the pt to try and abstain from smoking these next two weeks while the port sites heal. He is due to return for stent removal by Dr. Weber 6 weeks after surgery. * Plan: * -- Shower daily, soap and water and pat abd dry. * -- No lifting anything heavier than 20 pounds for another 4 weeks, which is 6 weeks postoperative. * -- At this point, there is no specific need to follow up with me. If he has any new questions or concerns, he may return at any time. * Mimi Rea MD MPH * General Surgery * Office: [phone] * [facility] [address] Work Phone: History of Present illness Narrative* Sol Rhodes MD - 05/22/2024 12:00 PM EST REASON FOR VISIT: Belching, abdominal discomfort, change of urine color, history of choledocholithiasis HPI: Gopal Irving is a 73 y.o. male who presents for above problems. He had history of choledocholithiasis status post ERCP and gallbladder removal. Has been having abdominal discomfort belching after meals. He reports this similar symptoms when he had history of cholelithiasis and choledocholithiasis. No other complaints. Review of system negative. He has labs in 2022, normal liver enzymes. No recent imaging study. He does not drink, or use any drugs or smokes. No personal family history of GI cancer or pancreatic disease. Last ERCP in 2022 status post biliary stent removal and sludge removal. REVIEW OF SYSTEMS Review of Systems Constitutional: Negative. Negative for activity change, appetite change, chills, fatigue, fever andunexpected weight change. HENT: Negative. Respiratory: Negative. Cardiovascular: Negative. Negative for chest pain and palpitations. Gastrointestinal: Negative. Negative for abdominal distention, abdominal pain, anal bleeding, bloodin stool, constipation, diarrhea, nausea, rectal pain and vomiting. Skin: Negative. Negative for color change and rash. Neurological: Negative. Negative for dizziness, tremors, seizures, weakness and headaches. Psychiatric/Behavioral: Negative. Negative for confusion. Allergies Allergen Reactions Metformin Diarrhea Prednisone Other Suicidal ideation Codeine Palpitations Past Medical History: Diagnosis Date Essential (primary) hypertension Benign essential hypertension Pain in right leg Pain of right lower extremity Personal history of nicotine dependence History of nicotine dependence Past Surgical History: Procedure Laterality Date OTHER SURGICAL HISTORY 08/11/2021 Angioplasty OTHER SURGICAL HISTORY 08/11/2021 Colonoscopy OTHER SURGICAL HISTORY 08/11/2021 Ear surgery OTHER SURGICAL HISTORY 08/11/2021 Prostate biopsy OTHER SURGICAL HISTORY 08/11/2021 Cardiac catheterization with stent placement OTHER SURGICAL HISTORY 08/11/2021 Transurethral resection of prostate OTHER SURGICAL HISTORY 10/15/2021 Eye surgery Family History Problem Relation Name Age of Onset Diabetes type II Mother Other (acute myocardial) Father Heart disease Brother Other (coronary artery bypass graft) Brother Social History Tobacco Use Smoking status: Every Day Current packs/day: 1.00 Types: Cigarettes Smokeless tobacco: Never Substance Use Topics Alcohol use: Never Current Outpatient Medications Medication Sig Dispense Refill aspirin 81 mg EC tablet Take 1 tablet (81 mg) by mouth once daily. cholecalciferol (Vitamin D-3) 50 MCG (2000 UT) tablet Take 2 tablets (4,000 Units) by mouth once daily. clopidogrel (Plavix) 75 mg tablet Take 1 tablet (75 mg) by mouth once daily. 90 tablet 3 esomeprazole (NexIUM) [address] capsule Take 1 capsule (40 mg) by mouth 2 times a day. FeroSuL 325 mg (65 mg iron) tablet Take 1 tablet (325 mg) by mouth once daily. HYDROcodone-acetaminophen ([place]) 5-325 mg tablet Take 1 tablet by mouth every 4 hours if needed for moderate pain (4 - 6) or severe pain (7 - 10). TAKE 1 TABLET EVERY 4 TO 6 HOURS NEEDED FOR PAIN. meclizine (Antivert) 25 mg tablet Take 1 tablet (25 mg) by mouth every 6 hours if needed for dizziness. methocarbamol (Robaxin) 750 mg tablet Take 1 tablet (750 mg) by mouth 3 times a day. metoprolol succinate XL (Toprol-XL) 25 mg 24 hr tablet Take 1 tablet (25 mg) by mouth early in the morning.. 90 tablet 3 PARoxetine (Paxil) 20 mg tablet Take 1 tablet (20 mg) by mouth once daily. polyethylene glycol (Glycolax, Miralax) 17 gram/dose powder Mix 17 g of powder and drink once dailyas needed. potassium chloride ER (Micro-K) 10 mEq ER capsule Take 1 capsule (10 mEq) by mouth once daily. 90 capsule 3 rosuvastatin (Crestor) 20 mg tablet Take 1 tablet (20 mg) by mouth once daily. 90 tablet 3 tolterodine LA (Detrol LA) 2 mg 24 hr capsule Take 1 capsule (2 mg) by mouth once a day on Wednesday, Wednesday, and Wednesday. Do not crush, chew, or split. valsartan (Diovan) 160 mg tablet Take 1 tablet (160 mg) by mouth 2 times a day. 180 tablet 3 No current facility-administered medications for this visit. PHYSICAL EXAM: There were no vitals taken for this visit. General appearance: No acute distress, cooperative. Eyes: Nonicteric, no redness or proptosis Ears, nose, mouth, and throat: Moist mucous membranes, tongue normal Neck: Supple, no lymphadenopathy or thyromegaly Lungs: Clear to auscultation bilaterally CV: Regular rate and rhythm, no murmur; no pitting edema in the lower extremities Abd: soft, non-tender; non-distended; normal active bowel sounds; no scars Skin: No rashes or lesions; no liver stigmata MSK: No deformities or joint edema/redness/tenderness Neuro: Alert and oriented 3, normal gait, non-focal no asterixis .fdl Lab Results Component Value Date WBC 12.7 (H) 11/12/2022 HGB 11.7 (L) 11/12/2022 HCT 39.3 (L) 11/12/2022 MCV 92 11/12/2022 PLT 164 11/12/2022 Lab Results Component Value Date ALT 20 11/12/2022 AST 38 11/12/2022 ALKPHOS 70 11/12/2022 BILITOT 0.6 11/12/2022 Lab Results Component Value Date INR 1.2 (H) 10/05/2022 PROTIME 14.1 (H) 10/05/2022 No results found for: IRON , TIBC , FERRITIN ASSESSMENT&PLAN: Abdominal discomfort, belching, history of choledocholithiasis. He reports dark urine. Will order LFTs and bilirubin Will order ultrasound of the abdomen to rule out pancreatobiliary pathology Consider upper endoscopy after the above workup He may need ERCP depend of the workup Consultation requested by Dr. Mk Garcia MD. My final recommendations will be communicated back to the requesting physician by way of shared Medical record or letter to requesting physician via fax. Signature: Sol Rhodes MD Date: 05/22/2024 Time: 10:50 AM documented in this [facility] Work Phone: Hospital course Narrative No data available for this section [facility] Hospital Discharge instructions Additional Instructions Follow-up with your primary care doctor Return to ED if you develop worsening symptoms [facility] Work Phone: Hospital Discharge instructions* Additional Orders:Additional Instructions: Please follow up with your primary care provider within 7 days for hospital follow up. Please call to make this appointment. Please take your medications asprescribed. Augmentin twice daily for 8 days, take with food. If you have any new or worsening symptoms seek medical attention.Thank you for allowing us to participate in your care!-[facility] Inpatient Medicine Teaching Service. * Home Care Face to Face Certification:Home Care Services Needed: yesHome Care Agency: Home Team Skilled Disciplines Ordered: RN/CHURCH MUSICIAN, PT, OTFace to Face Encounter Completed: yesDate ofEncounter: [id number] Necessity for Homecare (based on clinical findings): Pt has cholecystitis that has risk of worsening prior to definitive management with cholecystectomy. He has ongoing RUQ pain that limits his ability to take care of himself and decreased PO intake. Homebound Status: homeboundHomebound Due to: Patient sHas diminished exercise tolerance and can only ambulate limited distances. It is taxing and takes extraordinary effort to leave the house.Face to Face Completed andHome Care Orders Reviewed: I certify that this patient is under my care. I have reviewed the information included in the face to face and certify that the home care services ordered are medically necessary for this patient. * Home Care Skilled Service:Home Care Skilled Service: assessment, Rehab (PT/OT/SP eval and treat)Assessment: First Home Care Visit: day after discharge * Follow Up Appointment 1:Physician/Dept/Service: Dr. Mk Burton for Referral: Hospital follow upCall to Schedule in: 2-3 daysPhone Number: * Follow Up Appointment 2:Physician/Dept/Service: Dr. Mckeon for Referral: Gallbladder surgeryScheduled Date/Time: 13-Oct-2022 01:00Location: [facility] [id number] [place] [address] Dr. [place] [address]Phone Number: [phone]: Please arrive 15 early to your appoinment and bring all insurance information * Follow Up Appointment 3:Physician/Dept/Service: Dr. Douglas for Referral: Biliary Stent RemovalPhone Number: [phone] [facility] No data available for this section [facility] progress note No data available for this section [facility] reason for referral (narrative)* Consultation (Routine) - Authorized Specialty Diagnoses / Procedures Referred By Aquilino valera Referred To Contact Cardiology Diagnoses Two-vessel coronary artery disease Procedures Follow Up In Cardiology Bonifacio Stern DO [address] [facility] [address] [place] [address] Bonifacio Stern DO [address] [facility] [address] [place] [address] Referral ID Status Reason Start Date Expiration Date V isits Requested Visits Authorized [id number] Authorized 2023 11/08/2024 1 1 [facility] Work Phone: Reason for visit Narrative* Imaging (Routine) - Pending Review Specialty Diagnoses / Procedures Referred By Aquilino valera Referred To Contact Radiology Diagnoses Choledocholithiasis Belching Abdominal discomfort Procedures US right upper quadrant US abdomen complete Sol Rhodes MD [address] [address] Phone: tel: fax: Referral ID Status Reason Start Date Expiration Date Visits Requested Visits Authorized [id number] Pending Review Perform Procedure 05/22/2024 05/22/2025 1 1 [facility] Work Phone: Family History Unknown Family Member Name Dates Details Family history of diabetes m ellitus: Mother(V18.0, Z83.3) Status:Active Family history of acute myoc ardial infarction: Father(V17.3, Z82.49) Status:Active S/P CABG (coronary artery by pass graft): Brother(V45.81, Z95.1) Status:Active Unknown Family Member Name Dates Details Family history of diabetes m ellitus: Mother(V18.0, Z83.3) Status:Active Family history of acute myoc ardial infarction: Father(V17.3, Z82.49) Status:Active S/P CABG (coronary artery by pass graft): Brother(V45.81, Z95.1) Status:Active Relationship Condition Age at Onset Recorded Date/T jose Not Specified No pertinent family history Unknown Unknown Family Member Name Dates Details Family history of diabetes m ellitus: Mother(V18.0, Z83.3) Status:Active Family history of acute myoc ardial infarction: Father(V17.3, Z82.49) Status:Active S/P CABG (coronary artery by pass graft): Brother(V45.81, Z95.1) Status:Active Unknown Family Member Name Dates Details Family history of diabetes m ellitus: Mother(V18.0, Z83.3) Status:Active Family history of acute myoc ardial infarction: Father(V17.3, Z82.49) Status:Active S/P CABG (coronary artery by pass graft): Brother(V45.81, Z95.1) Status:Active Unknown Family Member Name Dates Details Family history of diabetes m ellitus: Mother(V18.0, Z83.3) Status:Active Family history of acute myoc ardial infarction: Father(V17.3, Z82.49) Status:Active S/P CABG (coronary artery by pass graft): Brother(V45.81, Z95.1) Status:Active Unknown Family Member Name Dates Details Family history of diabetes m ellitus: Mother(V18.0, Z83.3) Status:Active Family history of acute myoc ardial infarction: Father(V17.3, Z82.49) Status:Active S/P CABG (coronary artery by pass graft): Brother(V45.81, Z95.1) Status:Active Unknown Family Member Name Dates Details Family history of diabetes m ellitus: Mother(V18.0, Z83.3) Status:Active Family history of acute myoc ardial infarction: Father(V17.3, Z82.49) Status:Active S/P CABG (coronary artery by pass graft): Brother(V45.81, Z95.1) Status:Active Family history of arterioscl erotic cardiovascular disease: Brother(V17.49, Z82.49) Status:Active Unknown Family Member Name Dates Details Family history of diabetes m ellitus: Mother(V18.0, Z83.3) Status:Active Family history of acute myoc ardial infarction: Father(V17.3, Z82.49) Status:Active S/P CABG (coronary artery by pass graft): Brother(V45.81, Z95.1) Status:Active Family history of arterioscl erotic cardiovascular disease: Brother(V17.49, Z82.49) Status:Active Unknown Family Member Name Dates Details Family history of diabetes m ellitus: Mother(V18.0, Z83.3) Status:Active Family history of acute myoc ardial infarction: Father(V17.3, Z82.49) Status:Active S/P CABG (coronary artery by pass graft): Brother(V45.81, Z95.1) Status:Active Family history of arterioscl erotic cardiovascular disease: Brother(V17.49, Z82.49) Status:Active Relationship Condition Age at Onset Recorded Date/T jose father Unknown mother Unknown Chief Complaint * GOPAL IRVING is being seen for follow-up of a hospitalization for. * Patient is a 70-year-old gentleman returns following recent postoperative non- ST elevation CT associated with endograft treatment for a large expanding infrarenal abdominal aortic aneurysm this past July. Catheterization revealed widely patent coronary stents with small diffuse coronary vessel di sease in the RCA, PLV and LAD distributions with normal left ventricular function. No intervention was performed. He did have thrombocytopenia initially and therefore, dual antiplatelet therapy was withheld because of his thrombocytopenia. * His platelet function and hemogram from October 07 are reviewed and normal platelets are 300,000. Renal function is normal * He has ongoing tobacco use, severe COPD, is ambulatory only via wheelchair due to his significant weakness of his lower extremities. He has ongoing diabetes mellitus as well. * We have counseled extensively on smoking cessation he is unwilling to consider quitting tobacco * We reviewed all of his medications, recommendations after reviewing his home monitoring of blood pressures along with his caregiver, will reinitiate clopidogrel 75 daily, have his health aide keep track of his blood pressures we may need to reinstitute CHARLES/ARB, will follow-up in 6 months * GOPAL IRVING is being seen for a 8 month follow-up of. * 71-year-old gentleman returns for follow-up and is here with his caregiver/daughter today is doing well from a cardiovascular standpoint still recovering from his abdominal endograft and left iliofemoral revascularization from last July. Mode of ambulation is by wheelchair today due to his fragil ity and vascular disease and ongoing COPD. * Cardiac catheterization report reviewed from July preoperatively for clearance revealing widely patent LAD and RCA stents with diffuse small vessel disease. * Unfortunately continues smoking we took 3 to 5 minutes today to deputy [place] counsel him on smoking cessation. * He remains on appropriate guideline directed medical therapies as reviewed we have no recent laboratories to review but his daughter who is a nurse states that Dr. Garcia is actively involved with assessing and treating his diabetes and other comorbidities and assessing laboratories. * Recommendations: Continue current therapies, although he would be a candidate for Xarelto 2.5 twicedaily and this is still a consideration I would hold off for the time being due to risk of bleedingand falling. * Will otherwise follow-up within 1 * GOPAL IRVING is being seen for a 8 month follow-up of. * 71-year-old gentleman returns for follow-up and is here with his caregiver/daughter today is doing well from a cardiovascular standpoint still recovering from his abdominal endograft and left iliofemoral revascularization from last July. Mode of ambulation is by wheelchair today due to his fragil ity and vascular disease and ongoing COPD. * Cardiac catheterization report reviewed from July preoperatively for clearance revealing widely patent LAD and RCA stents with diffuse small vessel disease. * Unfortunately continues smoking we took 3 to 5 minutes today to [place] counsel him on smoking cessation. * He remains on appropriate guideline directed medical therapies as reviewed we have no recent laboratories to review but his daughter who is a nurse states that Dr. Garcia is actively involved with assessing and treating his diabetes and other comorbidities and assessing laboratories. * Recommendations: Continue current therapies, although he would be a candidate for Xarelto 2.5 twicedaily and this is still a consideration I would hold off for the time being due to risk of bleedingand falling. * Will otherwise follow-up within 1 POV-Lap. Rachna. 4/26.* GOPAL IRVING is being seen for a 8 month follow-up of. * 72-year-old gentleman returns for routine cardiovascular follow-up status post recent laparoscopic cholecystectomy at [facility]. He is otherwise doing well with no cardiovascular events, details of the surgical follow-up and notes are reviewed. * Patient has known ASHD with previous PCI's of the proximal and mid LAD and RCA remotely, follow-up heart catheterization in 2021 revealed widely patent stents in the segments with diffuse distal RCA and LAD disease with preserved left ventricular function, treated conservatively. * He has a history of AAA endograft stent repair, accelerated hypertension, severe COPD, ongoing tobacco use, diabetes mellitus. Today's blood pressure is accelerated on current therapies. * Patient had 3 recent falls at home however he remains ambulatory, no longer in a wheelchair. He is smoking, we have counseled him extensively today on smoking cessation for 3 to 5 minutes. * He denies angina or recurrent cardiovascular events or cardiac related hospitalizations * Recommendations, escalate valsartan to 320 mg, blood pressure check with family physician, will seehim again in 6 months * GOPAL IRVING is being seen for a 8 month follow-up of. * 72-year-old gentleman returns for routine cardiovascular follow-up status post recent laparoscopic cholecystectomy at [facility]. He is otherwise doing well with no cardiovascular events, details of the surgical follow-up and notes are reviewed. * Patient has known ASHD with previous PCI's of the proximal and mid LAD and RCA remotely, follow-up heart catheterization in 2021 revealed widely patent stents in the segments with diffuse distal RCA and LAD disease with preserved left ventricular function, treated conservatively. * He has a history of AAA endograft stent repair, accelerated hypertension, severe COPD, ongoing tobacco use, diabetes mellitus. Today's blood pressure is accelerated on current therapies. * Patient had 3 recent falls at home however he remains ambulatory, no longer in a wheelchair. He is smoking, we have counseled him extensively today on smoking cessation for 3 to 5 minutes. * He denies angina or recurrent cardiovascular events or cardiac related hospitalizations * Recommendations, escalate valsartan to 320 mg, blood pressure check with family physician, will seehim again in 6 months Chief Complaint and Reason for Visit Chief Complaint abd pain black stool Abdominal Pain, Weight Loss, Belching abd pain Chief Complaint abd pain black stool Abdominal Pain, Weight Loss, Belching abd pain abd pain Chief Complaint abd pain black stool Abdominal Pain, Weight Loss, Belching abd pain abd pain Abdominal Pain,Weight Loss, Belching, Early Satite Chief Complaint Abdominal Pain, Weig ht Loss, Belching abd pain abd pain Abdominal Pain,Weight Loss, Belching, Early Satite Celiac Stenosis Chief Complaint abd pain abd pain Abdominal Pain,Weight Loss, Belching, Early Satite 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 Chief Complaint abd pain abd pain Abdominal Pain,Weight Loss, Belching, Early Satite 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 Chief Complaint EKG changes Abd Pain Reason for Visit Abdominal pain Abnormal CT of the abdomen Non-ST elevation myocardial infarction (NSTEMI), initial episode of care Hypertension Chief Complaint sent by Dr [email or web address] Chief Complaint i71.4 abd pain,vomiting Reason for Visit Ileus Chief Complaint Diarrhea Diarrhea Chief Complaint Admit Date 1 YR F/U; ABD U/S August 28, 2024 8:17am Reason for Visit Admit Date Smoker August 28, 2024 8:17am Abdominal aortic aneurysm August 28, 2024 8:17am Advance Directives Advance Directive Response Recorded Date/ Time Advance Directives No October 19 9:46pm Advance Directive Response Recorded Date/ Time Advance Directives No October 19 8:46pm Summary Purpose Additional Source Comments Care Team (unrecognized sect ion and content) Team Status: Inactive Member Role Status Dates Mk Garcia MD Primary Care Provider Active Dejuan Wolf DO Emergency Provider Active Team Status: Inactive Member Role Status Dates Mk Garcia MD Primary Care Provider Active Yemi Silverio MD Attending Provider Active Team Status: Inactive Member Role Status Dates Mk Garcia MD Primary Care Provider Active Reji Barrientos DO Emergency Provider Active Team Status: Active Member Role Status Dates Mk Garcia MD Primary Care Provider Active Team Status: Inactive Member Role Status Dates Mk Garcia MD Primary Care Provider Active Tani Vargas MD Attending Provider Active Team Status: Inactive Member Role Status Dates Mk Garcia MD Primary Care Provider Active POONAM Forrester Attending Provider Active Team Status: Inactive Member Role Status Dates Mk Garcia MD Primary Care Provider Active Ubaldo Poole MD Admit Provider Active Yemi Silverio MD Other Provider Active Anton Fontenot DO Attending Provider Active Assistant Refinery Operator Relationship Specialty Start Date End Date Mk Garcia MD PCP - General 10/15/21 Team Status: Inactive Member Role Status Dates Mk Garcia MD Primary Care Provider Active Va Ernst DO Emergency Provider Active Anton Fontenot DO Admit Provider, Attending Provider Active Assistant Refinery Operator Relationship Specialty Start Date End Date Mk Garcia MD [address] [place] [phone] PCP - General Family Medicine 09/01/23 Assistant Refinery Operator Relationship Specialty Start Date End Date Mk Garcia MD [address] [place] [phone] PCP - General Family Medicine 09/01/23 Assistant Refinery Operator Relationship Specialty Start Date End Date Mk Garcia MD [address] [place] [address] PCP - General Family Medicine 11/09/23 Team Status: Inactive Member Role Status Dates Mk Garcia MD Primary Care Provider Active S tart: January 19, 2024 End: January 19, 2024 Yemi Silverio MD Attending Provider Active S tart: January 19, 2024 End: January 19, 2024 Team Status: Active Member Role Status Dates Mk Garcia MD Primary Care Provider Active S tart: January 19, 2024 Yemi Silverio MD Attending Provider, Other Provide r Active Start: January 19, 2024 Assistant Refinery Operator Relationship Specialty Start Date End Date Mk Garcia MD [address] [place] [phone] PCP - General Family Medicine 09/01/23 Assistant Refinery Operator Relationship Specialty Start Date End Date Mk Garcia MD [address] [place] [address] PCP - General Family Medicine 11/09/23 Assistant Refinery Operator Relationship Specialty Start Date End Date Mk Garcia MD [address] [place] [address] PCP - General Family Medicine 11/09/23 Sol Rhodes MD [address] [place] [address] Surgeon Gastroenterology 05/19/24 Assistant Refinery Operator Relationship Specialty Start Date End Date Mk Garcia MD [address] [place] [address] PCP - General Family Medicine 11/09/23 Sol Rhodes MD [address] [place] [address] Surgeon Gastroenterology 05/19/24 Assistant Refinery Operator Relationship Specialty Start Date End Date Mk Garcia MD [address] [place] [address] PCP - General Family Medicine 09/01/23 Assistant Refinery Operator Relationship Specialty Start Date End Date Mk Garcia MD [address] [place] [address] PCP - General Family Medicine 09/01/23 Assistant Refinery Operator Relationship Specialty Start Date End Date Mk Garcia MD [address] [place] [address] PCP - General Family Medicine 09/01/23 Assistant Refinery Operator Relationship Specialty Start Date End Date Mk Garcia MD [address] [place] [address] PCP - General Family Medicine 09/01/23 Assistant Refinery Operator Relationship Specialty Start Date End Date Mk Garcia MD [address] [place] [phone] PCP - General Family Medicine 09/01/23 Assistant Refinery Operator Relationship Specialty Start Date End Date Mk Garcia MD [address] [place] [address] PCP - General Family Medicine 09/01/23 Assistant Refinery Operator Relationship Specialty Start Date End Date Mk Garcia MD [address] [place] [address] PCP - General Family Medicine 09/01/23 Assistant Refinery Operator Relationship Specialty Start Date End Date kM Garcia MD [address] [place] [address] PCP - General Family Medicine 09/01/23 Assistant Refinery Operator Relationship Specialty Start Date End Date Mk Garcia MD [address] [place] [phone] PCP - General Family Medicine 09/01/23 Team Status: Inactive Member Role Status Dates Mk Garcia MD Primary Care Provider Active S tart: August 28, 2024 End: August 28, 2024 Tani Vargas MD Attending Provider Active S tart: August 28, 2024 End: August 28, 2024 Assistant Refinery Operator Relationship Specialty Start Date End Date Mk Garcia MD [address] [place] [address] PCP - General Family Medicine 09/01/23 Assistant Refinery Operator Relationship Specialty Start Date End Date Mk Garcia MD [address] [place] [address] PCP - General Family Medicine 11/09/23 Sol Rhodes MD [address] [facility] [address] [place] [address] Surgeon Gastroenterology 05/19/24 Assistant Refinery Operator Relationship Specialty Start Date End Date Mk Garcia MD [address] [place] [phone] PCP - General Family Medicine 09/01/23 Assistant Refinery Operator Relationship Specialty Start Date End Date Mk Garcia MD [address] [place] [address] PCP - General Family Medicine 09/01/23 Assistant Refinery Operator Relationship Specialty Start Date End Date Mk Garcia MD [address] [place] [phone] PCP - General Family Medicine 09/01/23 REASON FOR VISIT (unrecogniz ed section and content) Reason Comments Follow-up 6 months Specialty Diagnoses / Procedures Referred By Aquilino t Referred To Contact Cardiology Diagnoses Two-vessel coronary artery disease Procedures Follow Up In Cardiology Bonifacio Stern, [address] [address] Phone: tel: fax: Bonifacio Stern, [address] [address] Phone: tel: fax: Referral ID Status Reason Start Date Expiration Date V isits Requested Visits Authorized [id number] Authorized 2023 11/08/2024 1 1 Reason Comments Other ERCP stent removal K 86.9 K80.50 10837 Reason Comments Follow-up Loose stool for abou t 2 weeks Reason Onset Date Comments Med Refill 05/01/2024 Reason Onset Date Comments Med Refill 05/31/2024 Reason Onset Date Comments Med Refill 03/06/2024 Reason Comments Extremity Weakness Patient states he ge ts weak and dizzy feels like he is going to pass out Reason Onset Date Comments Med Refill 04/06/2024 Reason Comments Follow-up 1 mFeels weak/ dizzy Reason Onset Date Comments Med Refill 07/10/2024 Reason Onset Date Comments Med Refill 08/01/2024 Reason Onset Date Comments Med Refill 09/04/2024 Reason Onset Date Comments Med Refill 10/26/2024 Reason Comments Follow-up 6 months for two-ves loli coronary artery disease Specialty Diagnoses / Procedures Referred By Aquilino valera Referred To Contact Cardiology Diagnoses Two-vessel coronary artery disease Procedures Follow Up In Cardiology Bonifacio Stern, DO [address] [facility], [address] [address] Phone: tel: fax: Stevan Deirdre K, COATER OPERATOR [employer] [address] [facility], [facility] [address] [place] [address] Phone: tel: fax: Referral ID Status Reason Start Date Expiration Date V isits Requested Visits Authorized [id number] Authorized 05/10/2024 05/10/2025 1 1 Reason Onset Date Comments Med Refill 11/20/2024 Reason Comments Vertigo Fell on wednesday Goals (unrecognized section and content) Goals may be documented in a n alternate section <item> Privacy Markings (unrecogniz ed section and content) Section Author: Meera Niño PROHIBITION ON REDISCLOSURE OF CONFIDENTIAL INFORMATION This notice accompanies a disclosure of information concerning a client made to you with the consent of such client. (unrecognized sect ion and content) No Status Records FoundNo Status Records FoundNo Status Records FoundNo Status Records FoundNo Status Records FoundNo Status Records FoundNo Status Records FoundNo Status Records FoundNo Status Records FoundNo Status Records Found INFORMATION SOURCE (unrecogn ized section and content) DATE CREATED AUTHOR 10/29/2022 [facility] DATE CREATED AUTHOR AUTHOR'S ORGANIZ ATION 10/29/2022 [facility] DATE CREATED AUTHOR AUTHOR'S ORGANIZ ATION 12/28/2022 [facility] DATE CREATED AUTHOR AUTHOR'S ORGANIZ ATION 03/04/2023 [facility] DATE CREATED AUTHOR AUTHOR'S ORGANIZ ATION 03/04/2023 [employer] DATE CREATED AUTHOR AUTHOR'S ORGANIZ ATION 05/29/2024 [facility] DATE CREATED AUTHOR AUTHOR'S ORGANIZ ATION 05/31/2024 [facility] DATE CREATED AUTHOR AUTHOR'S ORGANIZ ATION 09/08/2024 [facility] DATE CREATED AUTHOR AUTHOR'S ORGANIZ ATION 11/15/[address] [facility] DATE CREATED AUTHOR AUTHOR'S ORGANIZ ATION 12/12/2024 [facility] EPIC FOR RECORDS PERTAINING TO PATIENTS WHO ARE OR HAVE BEEN ENROLLED IN A CHEMICAL DEPENDENCY/SUBSTANCEABUSE PROGRAM, SOME INFORMATION MAY BE OMITTED. This clinical summary was aggregated from multiple sources. Caution should be exercised in using it in the provision of clinical care. This summary normalizes information from multiple sources, and as a consequence, information in this document may materially change the coding, format and clinical context of patient data. In addition, data may be omitted in some cases. CLINICAL DECISIONS SHOULD BE BASED ON THE PRIMARY CLINICAL RECORDS. [employer] provides no warranty or guarantee of the accuracy or completeness of information in this document.
[2024-12-30 14:30] LABS: Creatinine Urine Random 85.09 mg/dL (20.00-300.00); Microalbum Creatinine Ratio Ur 307.9 mg/g (0.0-29.9); Microalbumin Urine Random 26.2 mg/dL (<=30.0)
== END 2024-12-30 14:02 | disposition home or self-care (01) ==
LOC: LAB 14:01
PROVIDERS: PCP Family Medicine; Visit Provider Family Medicine
DX: E11.65 Type 2 diabetes mellitus with hyperglycemia (principal); I10 Essential (primary) hypertension; Z79.899 Other long term (current) drug therapy; E78.5 Hyperlipidemia, unspecified; R53.83 Other fatigue
CPT/HCPCS: 82043; 82570

== ENCOUNTER 2025-03-02 11:29 | Outpatient (OUT) | payer MEDICARE, MEDICAID, SELFPAY ==
--- NOTE | 2025-03-02 11:36 | XR_ITS ---
The [address] [address] Patient Name: MELINDA MUNOZ MRN: [id number] date: 1950 Sex: M Assigned Patient Location: RAD Current Patient Location: [facility] Accession/Order Number: [id number] Exam Date: 03/02/2025 12:00 Report Date: 03/02/2025 12:01 At the request of: REJI EPPS MD Procedure: XR abdomen 1V KUB: CLINICAL INFORMATION: Kidney stone. COMPARISON: CT abdomen and pelvis 07/27/2021 FINDINGS: Punctate bilateral nephrolithiasis. No bowel obstruction or free air. Aortic graft is in place. XR/XR abdomen 1V IMPRESSION: PUNCTATE BILATERAL NEPHROLITHIASIS. Impression dictated by: Ramses Farias Jr., D.O. 03/02/2025 12:01 PM Dictation Location: [place] [address] Electronically authenticated by: [id number] Y Date: 03/02/2025 12:01
--- OUTSIDE RECORDS SUMMARY | 2025-03-02 11:40 | XMS_ITS | CCD ---
Author Organization [facility] ion Partnership [facility] Care Team Providers Care Drafter Electrical Name Role Phone Unavailable Unavailable Mk Garcia Unavailable MK GARCIA Primary Care Physician Tani Vargas Unavailable Maryann Casillas Unavailable Yemi Silverio Unavailable MD Mk Garcia Primary Care Provider DO Reji Barrientos Emergency Provider MD Yemi Silverio Attending Provider DO Dejuan Wolf Emergency Provider MD Mk Garcia Primary Care Provider DO Reji Barrientos Emergency Provider MD Tani Vargas Attending Provider MD Mk Garcia Primary Care Provider DO Dejuan Wolf Emergency Provider DO Reji Barrientos Emergency Provider MD Yemi Silverio Attending Provider [phone] MD Tani Vargas Attending Provider POONAM Casillas Attending Provider MD Mk Garcia Primary Care Provider [phone] MD Ubaldo Pooleit Provider MD Yemi Silverio Other Provider DO Anton Fontenot Attending Provider DO Dejuan Wolf Emergency Provider [phone] Mk Garcia Unavailable Franky Mattson Unavailable Terri [...] Unavailable NADERER, DR MK Santos Admitting Unavailable Naderer, Dr. Mk Antonio Primary Care Nadia Weber, Dr. Alyssia Weir Admitting Unavai labmatthieu Weber, Dr. Alyssia Weir Attending Maureenvagianni labmatthieu Weber, Dr. Alyssia Weir Referring Unavai labmatthieu Garcia, Dr. Mk Antonio Primary Care Nadia Mathis, Dr. Conley Admitting Unavailable Del, Dr. Conley Referring Unavailable [facility], Dr. Terri Sainz Attending Unav ailable Srinivasan, Dr. Franky Casper Admitting U navailable Srinivasan, Dr. Franky Casper Attending U navailable Radha, Dr. Mk Antonio Primary Care Nadia Weber, Dr. Alyssia Weir Referring Unavai lable Naderer, Dr. Mk Antonio Primary Care Unavai lable Radha, Dr. Mk Antonio Referring Unavai lable Naderer, Dr. Mk Antonio Primary Care Unavai labmatthieu Mattson, Dr. Franky Casper Attending U navailable VOICULESCU, HUMPHREY Attending Unavailable Nadketan, Dr. Mk Antonio Referring Unavai lable Nadketan, Dr. Mk Antonio Primary Care Unavai lable Jarred, Dr. Bonifacio Azul Attending Unava ilable Jarred, Dr. Bonifacio Azul Referring Unava ilable Naderer, Dr. Mk Antonio Primary Care Unavai labmatthieu Stern, Dr. Bonifacio Azul Attending Unava ilable Nadketan, Dr. Mk Antonio Primary Care Maureenvai labmatthieu Stern, Dr. Bonifacio Azul Referring Unava ilable Naderer, Dr. Mk Antonio Primary Care Unavai labmatthieu Stern, Dr. Bonifacio Azul Attending Unava ilable Jarred, Dr. Bonifacio Azul Referring Unava ilable Traboulssi, Dr. Rios Attending Unavaila ble Naderebisi, Dr. Mk Antonio Primary Care Unavai lable Traboulchris, Dr. Rios Attending Unavaila ble Radha, Dr. Mk Antonio Primary Care Unavai labmatthieu Garcia MD, Mk Antonio Primary Care Provider U MD Mk Williamson Primary Care Provider DO Reji Barrientos Emergency Provider [phone] MD Tani Vargas Attending Provider MD Mk Garcia Primary Care Provider [phone] DO [facility] Emergency Provider DO Anton Fontenot Admit Provider DO Anton Fontenot Attending Provider Radha SCHAFER, Mk Primary Care Provider Mk Garcia MD Primary Care Provider MD Mk Garcia Primary Care Provider MD Yemi Silverio Attending Provider Sol Rhodes MD Unavailable SOL RHODES Referring Unavailable MK GARCIA Primary Care Unavailabl e NADERER, MK [place] Primary [facility] Unavailabl Yemi Funez Attending Unavailable Yemi Silverio Admitting Unavailable Radha, Mk Primary Care Unavailable Naderebisi, Mk Primary Care Unavailable Maryann Casillas Attending Unavailable Maryann Casillas Admitting Unavailable Sol Rhodes MD Unavailable RADHA, MK Attending Unavailable NADERER, MK Attending Unavailable NADERER, MK Attending Unavailable JARREDBONIFACOI Attending Unavailable BONIFACIO STERN Referring Unavailable NADMK ACEVES [facility] Unavailabl e SOL RHODES Attending Unavailable NADERER, MK [facility] Unavailabl e DEIRDRE CALLES Attending Unavailable JARREDBONIFACIO JEREZ Referring Unavailable NADEREBisi, MK [facility] Unavailabl e Reji EPPS Attending Unavailable Allergies Allergy Classification Reported Allergen(s) Allergy Type Date of Onset Reaction(s) Facility (20 sources) Codeine; Translations: [Codeine Derivatives] Drug Allergy 04-20-20 23 Unknown (qualifier value), Palpitations, Unknown [facility] [email or web address] DO Work Phone: (13 sources) CODINE Propensity to adverse reactions HEART [facility] [employer] Other (18 sources) Codeine; Translations: [Codeine] Drug Allergy 02-25-20 13 Palpitations [facility] (8 sources) metFORMIN; Translations: [METFORMIN] Drug Allergy 11-09-19 24 Diarrhea [facility] (8 sources) predniSONE; Translations: [PREDNISONE] Drug Allergy 11-09-19 24 Other [facility] Work Phone: Medications Current Medications Medication Drug Class(es) Dates Sig (Normalized) Sig (Original) amLODIPine 5 mg oral tablet (20 sources) Dihydropyridine Calcium [facility] Richard Start: 12-14-2024 [...] day Quantity: 16 Refills: 0 Ordered: 08-Oct-2022 Holland Cooper Start: 08-Oct-2022 End: 15-Oct-2022 Generic Substitution Allowed [...] 0 Active take 1 capsule by mo [facility] every twenty-four hours CeleBREX 100 mg 1 capsule Orally Daily Not-Taking cholecalciferol 0.05 mg oral tablet (20 sources) Vitamin D Start: 10-16-2024 take 1 tablet by mouth once daily cholecalciferol (Vitamin D-3) 50 MCG (2000 UT) tablet Indications: Vitamin D deficiency Take 1 tablet (50 mcg) by mouth Daily 90 tablet 3 10/16/2024 Active Start: 01-19-2024 take 1 tablet by kosta once daily Cholecalciferol (Vitamin D3) 50 mcg (2,000 unit) tablet Active 2000 UNIT PO Daily January 18, 2024 11:00pm Start: 12-10-2023 take 1 tablet by kosta once daily cholecalciferol (Vitamin D-3) 50 MCG (2000 UT) tablet Indications: Vitamin D deficiency Take 1 tablet (50 mcg) by mouth Daily 90 tablet 3 12/10/2023 Active Start: 05-25-2022 take 2 tablets by mo [facility] once daily cholecalciferol (Vitamin D-3) 50 MCG (2000 UT) tablet Take 2 tablets (100 mcg) by mouth once daily. 05/25/2022 Active Start: 05-25-2022 take 2 tablets by mo [facility] once daily cholecalciferol (Vitamin D-3) 50 MCG (2000 UT) tablet Take 2 tablets (4,000 Units) by mouth once daily. 05/25/2022 Active Start: 10-10-2021 End: 2023 take 1 tablet by mouth once daily cholecalciferol (Vitamin D-3) 50 MCG (1999 UT) tablet Take 1 tablet (50 mcg) [...] Plavix Active clotrimazole 10 mg/ml topical cream (15 sources) Azole Antifungal Start: 06-12-2024 clotrimazole (Lotrimin) [...] ium Active take 1 capsule by mo uth every twenty-four hours NexIUM 40 MG 1 [...] dose nasal spray (20 sources) Corticosteroid Start: 01-09-2025 take 2 spray(s) nasal route once daily fluticasone (Flonase) 50 MCG/ACT nasal spray Indications: Sinus congestion Administer 2 sprays into each nostril Daily Shake gently. Before first use, prime pump. After use, clean tip and replace cap. 16 g 3 01/09/2025 Active Start: 05-10-2024 End: 01-09-2025 take 2 spray(s) nasal route once daily as needed for rhinitis fluticasone (Flonase) 50 MCG/ACT nasal spray Indications: Sinus congestion Administer 2 (TWO) sprays into each nostril Daily as needed for rhinitis Shake gently. Before first use, prime pump. After use, clean tip and replace cap 16 g 3 05/10/2024 01/09/2025 Discontinued (Reorder) Start: 01-19-2024 Fluticasone Pr opionate 50 mcg/actuation [...] Active meclizine hydrochloride 25 mg oral tablet (13 sources) Antiemetic Start: 12-06-2024 take 1 tablet [...] (Dose adjustment) take 1 tablet by kosta every twenty-four hours Metoprolol Succinate ER 50 MG Oral Tablet Extended Release 24 Hour Quantity: 0 Refills: 0 Ordered: 19-Nov-2022 DO Active take 1 tablet by kosta every twenty-four hours Toprol XL 50 MG [...] (Therapy completed) take 1 capsule by mo [facility] once daily PriLOSEC 20 MG 1 capsule [...] tablet 3 06/19/2024 Active polyethylene glycol 3350 69786 mg powder for oral solution (20 sources) [...] (20 sources) Opioid Agonist Start: 11-20-2024 End: 03-30-2025 take 1 tablet by mouth four times daily as needed for pain HYDROcodone-acetamin ophen ([place]) 5-325 MG tablet Indications: Degeneration of cervical intervertebral disc Take 1 tablet by mouth 4 (four) times a day as needed for severe pain or moderate pain 120 tablet 02/05/2025 02/28/2025 Discontinued (Reorder) Start: 10-26-2024 End: 11-10-2024 take 1 tablet by mouth four times daily as needed for pain HYDROcodone-acetaminophen ([place]) 5-325 MG tablet Indications: Degeneration of cervical intervertebral disc Take 1 tablet by mouth 4 (four) times a day as needed for severe pain or moderate pain for up to 15 days 60 tablet 10/26/2024 11/10/2024 Active Start: 09-04-2024 End: 09-19-2024 take 1 tablet by mouth four times daily as needed for pain HYDROcodone-acetaminophen ([place]) 5-325 MG tablet Indications: Degeneration of cervical intervertebral disc Take 1 tablet by mouth 4 (four) times a day as needed for severe pain or moderate pain for up to 15 days 60 tablet 09/04/2024 09/19/2024 Active Start: 07-10-2024 End: 08-16-2024 take 1 tablet by mouth four times daily as needed for pain HYDROcodone-acetaminophen ([place]) 5-325 MG tablet Indications: Degeneration of cervical intervertebral disc Take 1 tablet by mouth 4 (four) times a day as needed for severe pain or moderate pain for up to 15 days 60 tablet 08/01/2024 08/16/2024 Active Start: 05-31-2024 End: 06-15-2024 take 1 tablet by mouth four times daily as needed for pain HYDROcodone-acetaminophen ([place]) 5-325 MG tablet Indications: Degeneration of cervical intervertebral disc Take 1 tablet by mouth 4 (four) times a day as needed for severe pain or moderate pain for up to 15 days 60 tablet 05/31/2024 06/15/2024 Active Start: 05-01-2024 End: 05-16-2024 take 1 tablet by mouth four times daily as needed for pain HYDROcodone-acetaminophen ([place]) 5-325 MG tablet Indications: Degeneration of cervical intervertebral disc Take 1 tablet by mouth 4 (four) times a day as needed for severe pain or moderate pain for up to 15 days 60 tablet 05/01/2024 05/16/2024 Active Start: 02-16-2024 End: 04-21-2024 take 1 tablet by mouth four times daily as needed for pain HYDROcodone-acetaminophen ([place]) 5-325 MG tablet Indications: Degeneration of cervical intervertebral disc Take 1 tablet by mouth 4 (four) times a day as needed for severe pain or moderate pain for up to 15 days 60 tablet 04/06/2024 04/21/2024 Active Start: 08-03-2023 take 1 tablet by kosta th four times daily as needed for pain HYDROcodone-acetaminophen ([place]) 5-325 MG tablet Indications: Degeneration of cervical [...] 4-6 HOURS as needed for pain 10 2 October 03, 2022 July 06, 2023 1:22pm Start: 10-20-2018 End: 03-30-2022 take 1 tablet by mouth every six hours as needed for pain Hydrocodone-Acetaminophen 5-325 mg table t Active 1 TAB PO Q6H as needed for Pain 10 5 March 30, 2022 take 1 tablet by kosta th every four hours as needed HYDROcodone-acetaminophen ([place]ples) 5-325 mg tablet Take 1 tablet by mouth every 4 hours if needed for moderate pain (4 - 6) or severe pain (7 - 10). TAKE 1 TABLET EVERY 4 TO 6 HOURS NEEDED FOR PAIN. Active docusate sodium 50 mg / sennosides, fdc 8.6 mg oral tablet (7 sources) Start: 10-24-2014 take 8.6-50 mg by mouth at bedtime Senokot S 8.6-50 MG 2 tabletS Orally AT BEDTIME for 30 day(s) Oct, Not-Taking Ubribybvtpv-LBQH-X ietary Prod 5-500 MG (7 sources) Hydrocodone-APAP [...] daily February 09, 2022 11:00pm Start: 10-18-2019 Jay Yeung, Refills(s) 0 Start Date: 10/18/19 Status: Ordered [...] 19, 2018 11:00pm October 20, 2018 12:28am Annel cullen/PRN Annel Thompson-Eber Up Active mesalamine 1200 mg delayed release oral [...] Arthritis 03-03-2019 Chronic Other aftercare (2 sources) [facility] (current) use of aspirin; 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] Onset: 3 Episodic Other aftercare (2 sources) [facility] (current) use of oral hypoglycemic drugs; Translations: [[facility] USE ORAL HYPOGLYCEMIC DX] Onset: 3 Episodic Other aftercare (1 source) Other senior care (current) drug therapy; Translations: [OTH VISION IMPAIRED TEACHER CURRENT DRUG THERAPY] Onset: 3 Episodic Other aftercare (1 source) Long-term current use of aspirin; 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 EHR Cmte Other upper respiratory disease (1 source) Congestion of nasal sinus; Translations: [Nasal congestion] 01-09-2025 Episodic Pancreatic disorders (not diabetes) (9 sources) Disease [...] [DEPRESSION UNSPECIFIED] Onset: 09-29-2022 11-16-2022 Other aftercare (20 sources) Long-term current use of drug therapy; Translations: [Other senior care (current) drug therapy] Onset: 03-14-2024 03-14-2024 Episodic Other aftercare (5 sources) Patient encounter status; Translations: [Other assistant terminal manager (current) drug therapy] Onset: 03-14-2024 03-14-2024 Episodic [...] aortic aneurysm, without rupture, unspecified (CMS-HCC)] Onset: 05-10-2024 Results Test Name Value Interpretation Reference Range Facility TB MICROALB CREAT RATIO RAN DOMon 12-30-2024 CREATININE URINE RANDOM 85.09 mg/dL 20.00 - 300.00 mg/dL [facility] Interpretation and review of laboratory results Abnormal [facility] MICROALBUM CREATININE RATIO UR 307.9 mg/g High 0.0 - 29.9 mg/g [facility] Comment on above: NO MICROALBUMINURIA 0-29 MG/G CLINICAL MICROALBUMINURIA 30-300 MG/G MACROALBUMINURIA >300 MG/G MICROALBUMIN URINE RANDOM 26.2 mg/dL NINF - 30.0 mg/dL [facility] ALL CBC WITH AUTO DIFFon BASOPHILS ABSOLUTE AUTO 0.1 [facility] Basophils/100 WBC (Bld) 0.8 % 0.2 - 2.0 % [facility] Eosinophils/100 WBC (Bld) 5.7 % 0.9 - 7.0 % [facility] Erythrocyte distribution width (RBC) [Ratio] 15.7 % High 11.0 - 15.0 % [facility] Hematocrit (Bld) [Volume fraction] 39.3 % Low 42.0 - 54.0 % [facility] Hemoglobin (Bld) [Mass/Vol] 13.2 g/dL Low 14.0 - 18.0 g/dL [facility] IMMATURE GRANULOCYTES ABS AUTO 0.04 High [facility] Immature granulocytes/100 WBC (Bld) 0.3 % 0.0 - 0.5 % [facility] Interpretation and review of laboratory results Abnormal [facility] LYMPHOCYTES ABSOLUTE AUTO 3.5 [facility] Lymphocytes/100 WBC (Bld) 30.3 % 20.5 - 60.0 % [facility] MCH (RBC) [Entitic mass] 29.7 pg 25.9 - 34.0 pg [facility] MCHC (RBC) [Mass/Vol] 33.6 g/dL 29.9 - 35.2 g/dL [facility] MCV (RBC) [Entitic vol] 88.5 fL 80.0 - 94.0 fL [facility] MONOCYTES ABSOLUTE AUTO 0.5 [facility] Monocytes/100 WBC (Bld) 4.7 % 1.7 - 12.0 % [facility] NEUTROPHILS ABSOLUTE AUTO 6.7 High [facility] Neutrophils/100 WBC (Bld) 58.2 % 43.0 - 75.0 % [facility] Platelet mean volume (Bld) [Entitic vol] 11.9 fL 9.5 - 13.5 fL [facility] TBH EO # 0.7 [facility] TBH PLT 192 [facility] TB RBC 4.44 Low [facility] TBH WBC 11.6 High [facility] US aortaon 08-28-2024 aorta [facility] [address] [place] [address] Ultrasound Report Signed Patient: Gopal Irving MR#: [id number] : 1950 Acct:[id number] Age/Sex: 73 / M ADM Date: 08/28/24 Loc: [facility] Room: [facility] Attending Dr: Maryann Casillas DIGITAL COMPUTER SYSTEMS ANALYST-C Ordering Provider: Maryann Casillas APRN Date of [...] Tani Vargas M.D.08/28/2024 11:21 AM Dictation Location: [place] [address] Tech: Rebecca Saab Transcribed By: LEONA 08/28/24 1121 Dictated By: Tani Vargas MD 08/28/24 1119 Signed By: 08/28/24 1121 Normal [facility] CMP (CMP) (FOR REMOTE C USE)on 05-26-2024 Albumin [Mass/Vol] 3.6 g/dL 3.4 - 5.0 g/dL [facility] ALP [Catalytic activity/Vol] 92 U/L 33 - 136 U/L [facility] ALT [Catalytic activity/Vol] 20 U/L 10 - 52 U/L [facility] Comment on above: Patients treated wit h Sulfasalazine may generate falsely decreased results for ALT. Anion gap [Moles/Vol] 12 mmol/L 10 - 2 0 mmol/L [facility] AST [Catalytic activity/Vol] 18 U/L 9 - 39 U/L [facility] Bilirubin [Mass/Vol] 0.4 mg/dL 0.0 - 1 .2 mg/dL [facility] Calcium [Mass/Vol] 8.1 mg/dL Low 8.6 - 10. 3 mg/dL [facility] Chloride [Moles/Vol] 110 mmol/L High 98 - 10 7 mmol/L [facility] Creatinine [Mass/Vol] 1.43 mg/dL High 0.50 - 1.30 mg/dL [facility] GFRAT 52 Low - PINF [facility] Comment on above: Calculations of bev mated GFR are performed using the 2020 CKD-EPI Study Refit equation without the race variable for the IDMS-Traceable creatinine methods. https://jasn.asnjournals.org/content//ASN.40379 22354 Glucose [Mass/Vol] 98 mg/dL 74 - 99 mg/dL [facility] HCO3 (Bld) [Moles/Vol] 24 mmol/L 21 - 32 mmol/L [facility] Interpretation and review of laboratory results Abnormal [facility] Potassium [Moles/Vol] 3.4 mmol/L Low 3.5 - 5.3 mmol/L [facility] Protein [Mass/Vol] 5.9 g/dL Low 6.4 - 8.2 g/dL [facility] Sodium [Moles/Vol] 143 mmol/L 136 - 145 mmol/L [facility] Urea nitrogen [Mass/Vol] 17 mg/dL 6 - 23 mg/dL [facility] Original Ordering Provider: SOL JAUREGUI [facility] Comprehensive metabolic 2000 panelon 05-26-2024 Albumin BCP dye [Mass/Vol] 3.6 g/dL Normal 3.4-5.0 [facility] Comment on above: Performed By: #### 2 4323-8 #### COURTNEY PETERSON ([id number]) [facility] (C) [address] [place] [address] 29641 ALP [Catalytic activity/Vol] 92 U/L Normal 33-136 [facility] Comment on above: Performed By: #### 2 4323-8 #### COURTNEY PETERSON ([id number]) [facility] ([facility]) [address] [place] [address] 06278 ALT With P-5'-P [Catalytic activity/Vol] 20 U/L Normal 10-52 [facility] Comment on above: Result Comment: Radha ents treated with Sulfasalazine may generate falsely decreased results for ALT. Performed By: #### 2 4323-8 #### COURTNEY RIBEIRO RIO MARI ([id number]) [facility] ([facility]) [address] [place] [address] Anion gap [Moles/Vol] 12 mmol/L Normal 10-20 [facility] Comment on above: Performed By: #### 2 4323-8 #### TUTUIBFIDENCIO RIBEIRO RIO MARI ([id number]) [facility] ([facility]) [address] [place] [address] AST With P-5'-P [Catalytic activity/Vol] 18 U/L Normal 9-39 [facility] Comment on above: Performed By: #### 2 4323-8 #### COURTNEY RIBEIRO RIO MARI ([id number]) [facility] ([facility]) [address] [place] [address] 05097 Bilirubin [Mass/Vol] 0.4 mg/dL Normal 0.0-1.2 [facility] Comment on above: Performed By: #### 2 4323-8 #### TUTUIBFIDENCIO RIBEIRO RIO MARI ([id number]) [facility] ([facility]) [address] [place] [address] 76251 Calcium [Mass/Vol] 8.1 mg/dL Low 8.6-10.3 [facility] Comment on above: Performed By: #### 2 4323-8 #### COURTNEY RIBEIRO RIO MARI ([id number]) [facility] ([facility]) [address] [place] [address] 18823 Chloride [Moles/Vol] 110 mmol/L High 98-107 [facility] Comment on above: Performed By: #### 2 4323-8 #### ANAIBELIGERARDO VIOLETA MARI ([id number]) [facility] ([facility]) [address] [place] [address] 00738 CO2 [Moles/Vol] 24 mmol/L Normal 21-32 [facility] Comment on above: Performed By: #### 2 4323-8 #### TUTUIBELIGERARDO VIOLETA MARI ([id number]) [facility] ([facility]) [address] [place] [address] 68599 Creatinine [Mass/Vol] 1.43 mg/dL High 0.50-1.30 [facility] Comment on above: Performed By: #### 2 4323-8 #### COURTNEY PETERSON ([id number]) [facility] ([facility]) [address] [place] [address] 59871 Glomerular filtration rate/1.73 sq M.predicted 52 mL/min/1.73m*2 Low >60 [facility] Comment on above: Result Comment: Calc ulations of estimated GFR are performed using the 2020 CKD-EPI Study Refit equation without the race variable for the IDMS-Traceable creatinine methods. https://jasn.asnjournals.org/content/early//ASN.06285 73110 Performed By: #### 2 4323-8 #### COURTNEY PETERSON ([id number]) [facility] ([facility]) [address] [place] [address] 51841 Glucose [Mass/Vol] 98 mg/dL Normal 74-99 [facility] Comment on above: Performed By: #### 2 4323-8 #### COURTNEY PETERSON ([id number]) [facility] ([facility]) [address] [place] [address] 49887 Potassium [Moles/Vol] 3.4 mmol/L Low 3.5-5.3 [facility] Comment on above: Performed By: #### 2 4323-8 #### COURTNEY PETERSON ([id number]) [facility] ([facility]) [address] [place] [address] 17537 Protein [Mass/Vol] 5.9 g/dL Low 6.4-8.2 [facility] Comment on above: Performed By: #### 2 4323-8 #### COURTNEY PETERSON ([id number]) [facility] ([facility]) [address] [place] [address] 22669 Sodium [Moles/Vol] 143 mmol/L Normal 136-145 [facility] Comment on above: Performed By: #### 2 4323-8 #### COURTNEY PETERSON ([id number]) [facility] ([facility]) [address] [place] [address] Urea nitrogen [Mass/Vol] 17 mg/dL Normal 6-23 [facility] Comment on above: Performed By: #### 2 4323-8 #### COURTNEY PETERSON ([id number]) [facility] ([facility]) [address] [place] [address] 93171 US RIGHT UPPER QUADRANTon US RIGHT UPPER QUADRANT Interpreted By: Daniella Kelly, STUDY: US RIGHT UPPER QUADRANT; 05/26/2024 4:07 pm INDICATION: Signs/Symptoms:rule out cbd stone. ,K80.50 Calculus of bile duct without cholangitis or cholecystitis without obstruction,R14.2 Eructation,R10.9 Unspecified abdominal pain COMPARISON: None. ACCESSION NUMBER(S): [id number] ORDERING CLINICIAN: SOL RHODES TECHNIQUE: Multiple images [...] Daniella Kelly 05/27/2024 11:39 AM Dictation workstation: [id number] [facility] Comment on above: Order Comment: Ok's to do RUQ per Najma Jordan with Dr. Rhodes's office ALL CBC WITH AUTO DIFFon BASOPHILS ABSOLUTE AUTO 0.1 [facility] Basophils/100 WBC (Bld) 0.9 % 0.2 - 2.0 % [facility] Eosinophils/100 WBC (Bld) 4.5 % 0.9 - 7.0 % [facility] Erythrocyte distribution width (RBC) [Ratio] 15.7 % High 11.0 - 15.0 % [facility] Hematocrit (Bld) [Volume fraction] 41.9 % Low 42.0 - 54.0 % [facility] Hemoglobin (Bld) [Mass/Vol] 13.7 g/dL Low 14.0 - 18.0 g/dL [facility] IMMATURE GRANULOCYTES ABS AUTO 0.16 High [facility] Immature granulocytes/100 WBC (Bld) 1.1 % High 0.0 - 0.5 % [facility] Interpretation and review of laboratory results Abnormal [facility] LYMPHOCYTES ABSOLUTE AUTO 3.8 [facility] Lymphocytes/100 WBC (Bld) 25.9 % 20.5 - 60.0 % [facility] MCH (RBC) [Entitic mass] 29.1 pg 25.9 - 34.0 pg [facility] MCHC (RBC) [Mass/Vol] 32.7 g/dL 29.9 - 35.2 g/dL [facility] MCV (RBC) [Entitic vol] 89.1 fL 80.0 - 94.0 fL [facility] MONOCYTES ABSOLUTE AUTO 0.8 [facility] Monocytes/100 WBC (Bld) 5.7 % 1.7 - 12.0 % [facility] NEUTROPHILS ABSOLUTE AUTO 9.1 High [facility] Neutrophils/100 WBC (Bld) 61.9 % 43.0 - 75.0 % [facility] Platelet mean volume (Bld) [Entitic vol] 12.1 fL 9.5 - 13.5 fL [facility] TBH EO # 0.7 [facility] PLT 174 [facility] RBC 4.70 [facility] WBC 14.7 High [facility] Capillary blood glucose charley urement by glucometer (mass/volume)Ordered By: Yemi Silverio on 01-19-2024 Glucose [Mass/Vol] 111 mg/dL Normal [facility] Comment on above: Random Glucose Refer ence Range is dependent on time and content of last meal. Glucose of more than 200 mg/dL in a nonstressed, ambulatory subject supports the diagnosis of Diabetes Mellitus. Result Comment: [place] Glucose Reference Range is dependent on time and content of last meal. Glucose of more than 200 mg/dL in a nonstressed, ambulatory subject supports the diagnosis of Diabetes Mellitus. Performed By: #### G LULS #### Point of Care testing , Glucose Poct Glucometerson 0 01-19-2024 Commemt1 Glu2: Cleaned Meter Normal [facility] Comment on above: Result Comment: PERF ORMED BY: [facility] [place] [address] PATHOLOGIST [employer] VIJAYA THOMAS M.D. Performed By: #### G LULS #### Point of Care testing , Stephen 01-19-2024 L Specimen: [id number] Received: 01/19/24 Status: GINETTE Req Num: [id number] Spec Type: Surgical Subm Dr: Yemi Silverio MD Tissues: A Colon Biopsy (ASC POLYP) Procedures: HE/2, Gross/Micro L4 Age/ Patient Sex Location Account Attending Physician Gopal Irving 73/M [id number] Yemi Silverio MD SPEC NUM: [id number] RECD: 01/19/24 STATUS: GINETTE MARTINEZAzul NUM: [id number] EMMA: 01/19/24- SUBM DR: Yemi Silverio MD ENTERED: 01/19/[address] [facility] [address]: SPEC TYPE: Surgical DEPT: S ORDERED: [...] are performed supporting the above interpretation Specimen: [id number] Received: 01/19/24 Status: GINETTE Mane Num: [id number] Spec Type: Surgical Subm Dr: Yemi Silverio MD Tissues: A Colon Biopsy (ASC POLYP) Procedures: Марина MOLINA/Myesha L4 Patient: Gopal Irving [id number] (Continued) Specimen: [id number] Received: 01/19/24 (Continued) Signed (signature on file) Michelle Awan MD 01/22/24 0905 Specimen: [id number] Received: 01/19/24 Status: GINETTE Mane Num: [id number] Spec Type: Surgical Subm Dr: Yemi Silverio MD Tissues: A Colon Biopsy (ASC POLYP) Procedures: Марина MOLINA/Myesha L4 Patient: Gopal Irving [id number] (Continued) Specimen: [id number] Received: 01/19/24 (Continued) CPT Codes 27141 Specimen: [id number] Received: 01/19/24 Status: GINETTE Mane Num: [id number] Spec Type: Surgical Subm Dr: Yemi Silverio MD Tissues: A Colon Biopsy (ASC POLYP) Procedures: HE/2, Gross/Micro L4 Patient: Gopal Irving [id number] (Continued) Signed (signature on file) Alonzo-Jason Awan MD 01/22/24 09 Normal [facility] No Panel InformationOrdered By: Yemi Silverio on 01-19-2024 Bedside Glucose Comment Glu2: cleaned meter [facility] Basophils Auto (Bld) [#/Vol] Ordered By: Anton Fontenot on 07-08-2023 Basophils (Bld) [#/Vol] 0.0 10*3/uL 0.0-0.2 [facility] Basophils/100 WBC Auto (Bld) Ordered By: Anton Fontenot on 07-08-2023 Basophils/100 WBC (Bld) 0.7 % . [facility] Calcium [Mass/volume] in Ser um or PlasmaOrdered By: Anton Fontenot on 07-08-2023 Calcium [Mass/Vol] 8.9 mg/dL 8.6-10.3 [facility] Carbon dioxide, total [Moles /volume] in Serum or PlasmaOrdered By: Anton Fontenot on 07-08-2023 CO2 [Moles/Vol] 26.0 mmol/L 21.0-31.0 [facility] Chloride [Moles/volume] in S glendy or PlasmaOrdered By: Anton Fontenot on 07-08-2023 Chloride [Moles/Vol] 109 mmol/L 98-107 [facility] Creatinine [Mass/volume] in Serum or PlasmaOrdered By: Anton Fontenot on 07-08-2023 Creatinine [Mass/Vol] 0.96 mg/dL 0.70-1.30 [facility] Eosinophils Auto (Bld) [#/Vo l]Ordered By: Anton Fontenot on 07-08-2023 Eosinophils (Bld) [#/Vol] 0.5 10*3/uL 0.0-0.45 [facility] Eosinophils/100 WBC Auto (Bl d)Ordered By: Anton Fontenot on 07-08-2023 Eosinophils/100 WBC (Bld) 7.5 % . [facility] Erythrocyte distribution wid th Auto (RBC) [Ratio]Ordered By: Anton Fontenot on 07-08-2023 Erythrocyte distribution width (RBC) [Ratio] 15.8 % 12.0-14.8 [facility] Glucose Glucometer (dC) [M ass/Vol]Ordered By: Anton Fontenot on 07-08-2023 Glucose [Mass/Vol] 125 mg/dL [facility] Comment on above: Random Glucose Refer ence Range is dependent on time and content of last meal. Glucose of more than 200 mg/dL in a nonstressed, ambulatory subject supports the diagnosis of Diabetes Mellitus. Glucose [Mass/volume] in Ser um or PlasmaOrdered By: Anton Fontenot on 07-08-2023 Glucose [Mass/Vol] 99 mg/dL 70-100 [facility] Comment on above: ADA recommended refe rence rangeRandom Glucose Reference Range is dependent on time and content of last meal. Glucose of more than 200 mg/dL in a nonstressed, ambulatory subject supports the diagnosis of Diabetes Mellitus. Hematocrit Auto (Bld) [Volum e fraction]Ordered By: Anton Fontenot on 07-08-2023 Hematocrit (Bld) [Volume fraction] 36.2 % 38.8-50.0 [facility] Hemoglobin [Mass/volume] in BloodOrdered By: Anton Fontenot on 07-08-2023 Hemoglobin (Bld) [Mass/Vol] 12.1 g/dL 13.0-17.0 [facility] Leukocytes [#/volume] correc dhaval for nucleated erythrocytes in Blood by Automated counOrdered By: Anton Fontenot on 07-08-2023 WBC corrected for nucl RBC Auto (Bld) [#/Vol] 6.7 10*3/uL 4.1-10.5 [facility] Lymphocytes Auto (Bld) [#/Vo l]Ordered By: Anton Fontenot on 07-08-2023 Lymphocytes (Bld) [#/Vol] 1.7 10*3/uL 1.00-4.8 [facility] Lymphocytes/100 WBC Auto (Bl d)Ordered By: Anton Fontenot on 07-08-2023 Lymphocytes/100 WBC (Bld) 26.0 % . [facility] MCH Auto (RBC) [Entitic mass ]Ordered By: Anton Fontenot on 07-08-2023 MCH (RBC) [Entitic mass] 28.9 pg 27.5-35.2 [facility] MCHC Auto (RBC) [Mass/Vol]Or dered By: Anton Fontenot on 07-08-2023 MCHC (RBC) [Mass/Vol] 33.3 g/dL 32.5-35.6 [facility] MCV Auto (RBC) [Entitic vol] Ordered By: Anton Fontenot on 07-08-2023 MCV (RBC) [Entitic vol] 86.7 fL 83.5-101 [facility] Monocytes Auto (Bld) [#/Vol] Ordered By: Anton Fontenot on 07-08-2023 Monocytes (Bld) [#/Vol] 0.5 10*3/uL 0.0-0.8 [facility] Monocytes/100 WBC Auto (Bld) Ordered By: Anton Fontenot on 07-08-2023 Monocytes/100 WBC (Bld) 8.0 % . [facility] Neutrophils Auto (Bld) [#/Vo l]Ordered By: Anton Fontenot on 07-08-2023 Neutrophils (Bld) [#/Vol] 3.9 10*3/uL 1.8-7.7 [facility] Neutrophils/100 WBC Auto (Bl d)Ordered By: Anton Fontenot on 07-08-2023 Neutrophils/100 WBC (Bld) 57.8 % . [facility] No Panel InformationOrdered By: Anton Fontenot on 07-08-2023 Bedside Glucose Comment Glu2: cleaned meter [facility] Estimated GFR (CKD-EPI) > 60.0 mL/Min [facility] Creatinine Clearance (Chem 62.77 [facility] Nucleated erythrocytes [Pres ence] in Blood by Automated countOrdered By: Anton Fontenot on 07-08-2023 Nucleated RBC Auto Ql (Bld) 0.1 /100{WBC} 0-0.5 [facility] Platelet mean volume Auto (B ld) [Entitic vol]Ordered By: Anton Fontenot on 07-08-2023 Platelet mean volume (Bld) [Entitic vol] 10.3 fL 6.6-10.1 [facility] Platelets Auto (Bld) [#/Vol] Ordered By: Anton Fontenot on 07-08-2023 Platelets (Bld) [#/Vol] 120 10*3/uL 150-450 [facility] Potassium [Moles/volume] in Serum or PlasmaOrdered By: Anton Fontenot on 07-08-2023 Potassium [Moles/Vol] 4.0 mmol/L 3.5-5.1 [facility] RBC Auto (Bld) [#/Vol]Ordere d By: Anton Fontenot on 07-08-2023 RBC (Bld) [#/Vol] 4.18 10*6/uL 3.90-5.60 [facility] Serum or plasma anion gap de terminationOrdered By: Anton Fontenot on 07-08-2023 Anion gap [Moles/Vol] 9.0 mmol/L 6.0-15.0 [facility] Sodium [Moles/volume] in Ser um or PlasmaOrdered By: Anton Fontenot on 07-08-2023 Sodium [Moles/Vol] 140 mmol/L 136-145 [facility] Urea nitrogen [Mass/volume] in Serum or PlasmaOrdered By: Anton Fontenot on 07-08-2023 Urea nitrogen [Mass/Vol] 17 mg/dL 7-25 [facility] WBC Auto (Bld) [#/Vol]Ordere d By: Anton Fontenot on 07-08-2023 WBC (Bld) [#/Vol] 6.7 10*3/uL 4.1-10.5 [facility] Alanine aminotransferase [En zymatic activity/volume] in Serum or PlasmaOrdered By: Anton Fontenot on 07-07-2023 ALT [Catalytic activity/Vol] 8 U/L 7-52 [facility] Albumin [Mass/volume] in Ser um or Plasma by Bromocresol green (BCG) dye binding methoOrdered By: Anton Fontenot on 07-07-2023 Albumin BCG dye [Mass/Vol] 3.6 g/dL 3.5-5.7 [facility] Alkaline phosphatase [Enzyma tic activity/volume] in Serum or PlasmaOrdered By: Anton Fontenot on 07-07-2023 ALP [Catalytic activity/Vol] 88 U/L 34-104 [facility] Aspartate aminotransferase [ Enzymatic activity/volume] in Serum or PlasmaOrdered By: Anton Fontenot on 07-07-2023 AST [Catalytic activity/Vol] 14 U/L 13-39 [facility] Bilirubin.total [Mass/volume ] in Serum or PlasmaOrdered By: Anton Fontenot on 07-07-2023 Bilirubin [Mass/Vol] 0.5 mg/dL 0.3-1.0 [facility] Clostridioides difficile tox in B tcdB gene [Presence] in Stool by GLORIA with probe deteOrdered By: Anton Fontenot on 07-07-2023 C. difficile toxin B tcdB gene GLORIA+probe Ql (Stl) Negative Negative [facility] Comment on above: Testing performed by RT-PCR Globulin Calc (S) [Mass/Vol] Ordered By: Anton Fontenot on 07-07-2023 Globulin (S) [Mass/Vol] 2.7 g/dL [facility] Protein [Mass/volume] in Ser um or PlasmaOrdered By: Anton Fontenot on 07-07-2023 Protein [Mass/Vol] 6.3 g/dL 6.4-8.9 [facility] Serum or plasma albumin/glob ulin mass ratioOrdered By: Anton Fontenot on 07-07-2023 Albumin/Globulin [Mass ratio] 1.3 {ratio} [facility] Activated partial thrombopla stin time (aPTT) in platelet poor plasma by coagulation aOrdered By: Va Ernst on 07-06-2023 aPTT Coag (PPP) [Time] 32.0 s 25.1-36.5 [facility] Comment on above: A hematocrit value g reater than 55% may lead to inaccurate results in coagulation testing. Patients having hematocrit values >55% require a special collection tube for coagulation studies. Please contact the laboratory at [phone] for redraw instructions. Automated erythrocytes count in urine sediment (number/area)Ordered By: Va Ernst on 07-06-2023 RBC Auto (Urine sed) [#/Area] 3-4 [HPF] 0-4 [facility] Automated leukocytes count i n urine sediment (number/area)Ordered By: Va Ernst on 07-06-2023 WBC Auto (Urine sed) [#/Area] 3-4 [HPF] 0-4 [facility] Bilirubin Test strip Ql (U)O rdered By: Va Ernst on 07-06-2023 Bilirubin Ql (U) Negative Negative [facility] COVID CepheidOrdered By: Karen Ernst on 07-06-2023 SARS-CoV-2 (COVID-19) Ab IA Ql Negative Negative [facility] Comment on above: This is a duplicate [facility] X[employer] Xpress CoV-2/Flu/RSV Plus RNA by RT-PCR result to be used for statistical tracking purpose only. SARS-CoV-2 (COVID-19) RNA GLORIA+probe Ql (Unsp spec) [facility] Color Auto (U)Ordered By: Me mariana Ernst on 07-06-2023 Color (U) Yellow Yellow [facility] INR in Platelet poor plasma by Coagulation assayOrdered By: Va Ernst on 07-06-2023 INR Coag (PPP) [Relative time] 1.1 {INR} [facility] Comment on above: INR Therapeutic Rang e [...] on 07-06-2023 Ketones (U) [Mass/Vol] Negative Negative [facility] Laboratory - UrinalysisOrder ed By: Va Ernst on 07-06-2023 Hyaline casts LM Ql (Urine sed) None seen [LPF] 0-8 [facility] Lactate [Moles/volume] in Se rum or PlasmaOrdered By: Va Ernst on 07-06-2023 Lactate [Moles/Vol] 1.8 mmol/L 0.5-2.2 [facility] Lipase [Enzymatic activity/v olume] in Serum or PlasmaOrdered By: Va Ernst on 07-06-2023 Lipase [Catalytic activity/Vol] 29.0 U/L 11.0-82.0 [facility] Monocyte distribution width [Entitic volume] in Blood by AutomatedOrdered By: Va Ernst on 07-06-2023 Monocyte distribution width Auto (Bld) [Entitic vol] 27.57 % 0.00-20.00 [facility] Comment on above: For adults in ED, MD W > 20.0 may be associated with a higher risk of sepsis during the first 12 hrs of hospital admission Natriuretic peptide B [Mass/ Vol]Ordered By: Va Ernst on 07-06-2023 Natriuretic peptide B (Bld) [Mass/Vol] 246.0 pg/mL 5-100 [facility] Nitrite Test strip Ql (U)Ord ered By: Va Ernst on 07-06-2023 Nitrite Ql (U) Negative Negative [facility] Protein Auto test strip (U) [Mass/Vol]Ordered By: Va Ernst on 07-06-2023 Protein (U) [Mass/Vol] 300 mg/dL Negative [facility] Prothrombin time (PT)Ordered By: aV Ernst on 07-06-2023 PT Coag (PPP) [Time] 12.5 s 9.0-12.9 [facility] Comment on above: A hematocrit value g reater than 55% may lead to inaccurate results in coagulation testing. Patients having hematocrit values >55% require a special collection tube for coagulation studies. Please contact the laboratory at [phone] for redraw instructions. Specific gravity Auto test s trip (U) [Rel density]Ordered By: Va Ernst on 07-06-2023 Specific gravity (U) [Rel density] 1.021 1.001-1.03 0 [facility] Squamous epithelial cells de tection in urine sediment by light microscopyOrdered By: Va Ernst on 07-06-2023 Epithelial cells.squamous LM Ql (Urine sed) 0-1 [HPF] 0-2 [facility] Troponin I.cardiac [Mass/vol ume] in Serum or Plasma by Detection limit <= 0.01 ng/Ordered By: Va Ernst on 07-06-2023 Troponin I.cardiac DL <= 0.01 ng/mL [Mass/Vol] 27.8 pg/mL 0.0-20.0 [facility] Urine bacteria detection by automated methodOrdered By: Va Ernst on 07-06-2023 Bacteria Auto Ql (U) None seen None Seen [facility] Urine clarity by refractomet ry automatedOrdered By: Va Ernst on 07-06-2023 Clarity Refractometry automated (U) Clear Clear [facility] Urine glucose measurement by automated test strip (mass/volume)Ordered By: Va Ernst on 07-06-2023 Glucose Auto test strip (U) [Mass/Vol] Normal mg/dL Normal [facility] Urine hemoglobin detection b y automated test stripOrdered By: Va Ernst on 07-06-2023 Hemoglobin Auto test strip Ql (U) Negative Negative [facility] Urine leukocyte esterase det ection by automated test stripOrdered By: Va Ernst on 07-06-2023 Leukocyte esterase Auto test strip Ql (U) Negative Negative [facility] Urobilinogen Auto test strip (U) [Mass/Vol]Ordered By: Va Ernst on 07-06-2023 Urobilinogen (U) [Mass/Vol] Normal mg/dL Normal [facility] pH Auto test strip (U)Ordere d By: Va Ernst on 07-06-2023 pH (U) 5.5 [pH] 5.0-9.0 [facility] Office Visit (Cardiology)on 03-03-2023 Follow-up visit Diagnoses/Problems [...] Current smoker Tobacco Use Screening; Status:Complete; Done: [id number] Patient Instructions Please bring all medicines, vitamins, [...] follow-up status post recent laparoscopic cholecystectomy at [facility]. He is otherwise doing well with no [...] negative for complaint. Vitals Vital Signs Recorded: [id number] 12:09PM Heart Rate66, R Radial Hrnmdbyl725, RUE, Sitting Nsrhkmfvt29, RUE, Sitting Height5 ft 6 in Isyrpc144 lb BMI Kdcctfdujj05.95 kg/m2 BSA Calculated1.7 Tobacco Usea) Yes Patient [...] and in (more content not included)... Normal [facility] Tobacco Screening.on 023 Adult depression screening assessment No [facility] [employer] 250 DO Work Phone: Fall risk assessment b) One or more fall s in the last year [facility] [employer] 250 DO Work Phone: Tobacco use status [facility] a) Yes [facility] [employer] 250 DO Work Phone: Tobacco Screening. Yes [facility] [employer] 250 DO Work Phone: ERCPon 12-17-2022 ERCP PATIENTNAME Patient Name: Gopal Irving EXAMDATE Procedure Date: 12/17/2022 9:41 AM PATIENTID PATIENTACCOUNTNUM PATIENTDOB Date of : 1950 ADMITTYPE Admit Type: Outpatient PATIENTROOM Site: [facility] 1 ETHNICITY Ethnicity: Not or RACE Race: White PROVDR Attending MD: Alyssia Weber MD, [id number] ENDOPROCEDURENAME Procedure: ERCP INDICATION Indications: Follow-up of bile duct stone(s), Follow-up of ascending cholangitis, Biliary stent removal PTPROFILE Patient Profile: This is a 72 year old male. Refer to note in patient chart for documentation of history and physical. PRIMARYPROVIDER Providers: Alyssia Weber MD (Doctor), Jeevan Mcgovern RN (Nurse), Balbina Schuler, Career Developer EDREFPROVIDER Referring: CURRENT_MEDS Medicines: General Anesthesia COMPLIC [...] the physician, the nurse, the anesthesiologist, the program director/air personality and the school laboratory technician in the procedure room. Mental Status [...] tolerated the procedure well. FINDING Findings: A auditor internal film of the abdomen was obtained. Surgical clips, consistent with a previous cholecystectomy, were seen in the area of the right upper quadrant of the abdomen. A biliary stent was visible on the auditor internal film. The esophagus was successfully intubated under [...] CPT_CODES Proc (more content not included)... Normal [facility] Alyssia Weber MD - 01/11/2023 Patient Name: Gopal Irving Procedure Date: 12/17/2022 9:41 AM Date of : 1950 Admit Type: Outpatient Site: [facility] 1 Ethnicity: Not or Race: White Attending MD: Alyssia Weber MD, [id number] Procedure: ERCP Indications: Follow-up of bile duct stone(s), Follow-up of ascending cholangitis, Biliary stent removal Patient Profile: This is a 72 year old male. Refer to note in patient chart for documentation of history and physical. Providers: Alyssia Weber MD (Doctor), Jeevan Mcgovern RN (Nurse), Balbina Schuler, Career Developer Referring: Medicines: General Anesthesia Complications: No immediate [...] the physician, the nurse, the anesthesiologist, the program director/air personality and the school laboratory technician in the procedure room. Mental Status [...] patient tolerated the procedure well. Findings: A auditor internal film of the abdomen was obtained. Surgical clips, consistent with a previous cholecystectomy, were seen in the area of the right upper quadrant of the abdomen. A biliary stent was visible on the auditor internal film. The esophagus was successfully intubated under [...] present medications. Procedure Code(s): --- Professional --- 71264, Endoscopic retrograde cholangiopancreatography (ERCP); with removal of foreign body(s) or stent(s) from biliary/pancreatic duct(s) 56084, Endoscopic retrograde c (more content not included)... [facility] Work Phone: Radiology Study observation (narrative) [facility] Work Phone: ERCPOrdered By: Alyssia renee 12-17-2022 [facility] Work Phone: GLUCOSE-POCTon 12-17-2022 Glucose [Mass/Vol] 98 mg/dL Normal 74 - 99 [facility] Comment on above: Performed By: #### G AIXA #### [facility] [address] [place] [address] Glucose Test strip manual (B ld) [Mass/Vol]on 12-17-2022 Glucose [Mass/Vol] 98 mg/dL 74 - 99 mg/dL [facility] Order Reconciliationon 12-17 Order Reconciliation Page 1 [...] Home Medications Added During Discharge Reconciliation Xray [facility] Inpatient Routine All Active Home Medications at [...] a day Xray ERCP Inpatient Routine Normal [facility] RF Unspecified body region L ess than 1 hour Views during surgeryon 12-17-2022 Radiology Study observation (narrative) [facility] Work Phone: RIS LEGACY CONVERSIONS Conversion, Active DSP Radio logy - 01/22/2023 [facility] Work Phone: RF Unspecified body region L ess than 1 hour Views during surgeryOrdered By: Ge Conversion on 12-17-2022 [facility] Post Op (General Surgery)on 11-19-2022 Post Op (General Surgery) Diagnoses/Problems Current smoker (305.1) (F17.200) 3/4 PPD Choledocholithiasis (574.50) (K80.50) Orders Two-vessel coronary artery disease Continue: Aspirin EC 81 MG TBEC; TAKE 1 TABLET DAILY Rx By: Bonifacio Stern; Dispense: 90 Days ; #:90 Tablet; Refill: 3;For: Two-vessel coronary artery disease; ANDREW = N; Verified Transmission to [id number]; Msg to Pharmacy: Fill at patient [...] = N; Record; Last Updated By: Stacie oDrsey; 11/19/2022 1:06:35 PM Patient Discussion/Summary Assessment: This is a 72 year-old male who presents for follow up of a laparoscopic cholecystectomy with IOC for cholelithiasis with complications of cholangitis. He has been doing very well since surgery. He has no complaints. There is no evidence of any obvious complications. Chataignier were removed and steri strips were placed. [...] radial pulses bilaterally. Abdomen: Soft. Nondistended. Nontender. Shirlene at port sites, all healed but umbilicus. No stigmata of infection. (more content not included)... Normal [facility]Con 11-12-2022 Erythrocyte distribution width (RBC) [Ratio] 16.0 % High 11.5 - 14.5 [facility] Comment on above: Performed By: #### M G #### [address] [address] Hematocrit (Bld) [Volume fraction] 39.3 % Low 41.0 - 52.0 [facility] Comment on above: Performed By: #### M G #### [address] [address] Hemoglobin (Bld) [Mass/Vol] 11.7 g/dL Low 13.5 - 17.5 [facility] Comment on above: Performed By: #### M G #### [address] [address] MCHC (RBC) [Mass/Vol] 29.8 g/dL Low 32.0 - 36.0 [facility] Comment on above: Performed By: #### M G #### [address] [address] MCV (RBC) [Entitic vol] 92 fL Normal 80 - 100 [facility] Comment on above: Performed By: #### M G #### [address] [address] NUCLEATED RBC 0.0 /100 WBC Normal 0.0 - 0.0 [facility] Comment on above: Performed By: #### M G #### [address] [address] Platelets (Bld) [#/Vol] 164 10*3/uL Normal 150 - 450 [facility] Comment on above: Performed By: #### M G #### [address] [address] RBC 4.25 x10E12/L Low 4.50 - 5.90 [facility] Comment on above: Performed By: #### M G #### [address] [address] WBC (Bld) [#/Vol] 12.7 10*3/uL High 4.4 - 11.3 [facility] Comment on above: Performed By: #### M G #### [address] [address] COMPREHENSIVE PANELon 2022 Albumin [Mass/Vol] 3.3 g/dL Low 3.4 - 5.0 [facility] Comment on above: Performed By: #### C MP ####[address] [address] ALP [Catalytic activity/Vol] 70 U/L Normal 33 - 136 [facility] Comment on above: Performed By: #### C MP ####[address] [address] ALT [Catalytic activity/Vol] 20 U/L Normal 10 - 52 [facility] Comment on above: Result Comment: Radha ents treated with Sulfasalazine may generate falsely decreased results for ALT. Performed By: #### C MP ####[address] [address] Anion gap [Moles/Vol] 16 mmol/L Normal 10 - 20 [facility] Comment on above: Performed By: #### C MP ####[address] [address] AST [Catalytic activity/Vol] 38 U/L Normal 9 - 39 [facility] Comment on above: Performed By: #### C MP ####[address] [address] Bilirubin [Mass/Vol] 0.6 mg/dL Normal 0.0 - 1.2 [facility] Comment on above: Performed By: #### C MP ####[address] [address] Calcium [Mass/Vol] 8.8 mg/dL Normal 8.6 - 10.3 [facility] Comment on above: Performed By: #### C MP ####[address] [address] Chloride [Moles/Vol] 104 mmol/L Normal 98 - 107 [facility] Comment on above: Performed By: #### C MP ####[address] [address] Creatinine [Mass/Vol] 0.98 mg/dL Normal 0.50 - 1.30 [facility] Comment on above: Performed By: #### C MP ####[address] [address] GFR/1.73 sq M.predicted among non-blacks MDRD (S/P/Bld) [Vol rate/Area] 82 mL/min/{1.73_m2} Normal >90 [facility] Comment on above: Result Comment: CALC ULATIONS OF ESTIMATED GFR ARE PERFORMED USING THE 2020 CKD-EPI STUDY REFIT EQUATION WITHOUT THE RACE VARIABLE FOR THE IDMS-TRACEABLE CREATININE METHODS. https://jasn.asnjournals.org/content/early//ASN.60435 [address]3007 Performed By: #### C MP ####[address] [address] Glucose [Mass/Vol] 88 mg/dL Normal 74 - 99 [facility] Comment on above: Performed By: #### C MP ####[address] [address] HCO3 (Bld) [Moles/Vol] 19 mmol/L Low 21 - 32 [facility] Comment on above: Performed By: #### C MP ####[address] [address] Potassium [Moles/Vol] 4.3 mmol/L Normal 3.5 - 5.3 [facility] Comment on above: Performed By: #### C MP ####[address] [address] Protein [Mass/Vol] 6.1 g/dL Low 6.4 - 8.2 [facility] Comment on above: Performed By: #### C MP ####[address] [address] Sodium [Moles/Vol] 135 mmol/L Low 136 - 145 [facility] Comment on above: Performed By: #### C MP ####[facility] [place] [address] Urea nitrogen [Mass/Vol] 19 mg/dL Normal 6 - 23 [facility] Comment on above: Performed By: #### C MP ####[facility] [place] [address] Clinical Event Note-Discharg e medicationson 11-12-2022 Clinical Event Note-Discharge medications Clinical Event: Clinical Event Note: TopicDischarge medications Details Was notified by nursing that patient is on [place] at home. Patient is s/p cholecystectomy and patient medication rec was showing norco, oxycodone and tylenol #3. Spoke with Dr. Mattson and plan is to have patient continue [place] that is prescribed by his family doctor and have family reach out to PCP if further pain medication is needed since he follows with that PCP to have the [place] prescribed (no other narcotic scripts to be given upon discharge and Tylenol #3 script discarded). Patient daughter is at bedside with all questions answered with understanding. Electronic Signatures: Shaniqua Iraheta (MARINE EQUIPMENT SALES ENGINEER-SQL SSRS DEVELOPER) (Signed 12-Nov-2022 13:46) Authored: Clinical Event Note Last Updated: 12-Nov-2022 13:46 by Shaniqua Iraheta (MARINE EQUIPMENT SALES ENGINEER-SQL SSRS DEVELOPER) Normal [facility] Daily Progress Note-Acute Ca re Surgeryon 11-12-2022 Daily Progress Note-Acute Care Surgery Service: Acute Care Surgery Subjective Data: GOPAL IRVING is a 72 year old Male who is Hospital Day # 2 and POD #1 for 1. Laparoscopic cholecystectomy with intraoperative cholangiogram;2. ;3. ;4. ;5. Objective Data: Objective Information: T PRBPMAPSpO2 [id number]/8695% Date/Time11/12 8: 8: 8: 8: 8:00 Range(36.3C [...] Updated: 12-Nov-2022 12:37 by Franky Mattson) Normal [facility] Daily Progress Note-Acute Care Surgery Service: Acute [...] placed Objective Data: Objective Information: T PRBPMAPSpO2 [id number]/7799% Date/Time11/12 4: 4: 4: 4: 4:10 Range(36.3C [...] 11/12 5:10: 3 = Mild T PRBPMAPSpO2 [id number]/7799% Date/Time11/12 4: 4: 4: 4: 4:10 Range(36.3C [...] Reference Range: STRAW,YELLOW Appearance, Urine CLEAR Specific [place], Urine 1.018 pH, Urine 5.0 Protein, Urine [...] Last Updated: 12-Nov-2022 08:00 by Franky Mattson) Normal [facility] Daily Progress Note-General Internal Medicineon 11-12-2022 Daily Progress Note-General Internal Medicine Consult Type: subsequent visit/care Service: General Internal Medicine Subjective Data: GOPAL IRVING is a 72 year old Male who is Hospital Day # 2 and POD #1 for 1. Laparoscopic cholecystectomy with intraoperative cholangiogram;2. ;3. ;4. ;5. Patient seen and examined Sitting in recliner Having abd pain POD1 laparoscopic cholecystectomy Hernandez placed overnight, voiding trial this am General surgery indicates likely dc to home later today. Objective Data: Objective Information: T PRBPMAPSpO2 [id number]/8695% Date/Time11/12 8: 8: 8: 8: 8:00 Range(36.3C [...] liver function test. He was transferred to [facility]. He was found to have choledocholithiasis and evidence of cholangitis. He underwent emergency ERCP and stent placement. Stones were removed. Patient went on to convalesce. Patient presents now for cholecystectomy and admitted to Dr. Mattson and underwent Laparoscopic cholecystectomy with intraoperati (more content not included)... Normal [facility] Discharge [id number] Discharge Profile2 Discharge Orders: Anticipated Discharge Date: Anticipated Discharge [id number] DNAR: Code Status at Discharge: Full Code Provider FINAL REVIEW of Orders: Final Review: Final Review of Medication Reconciliation and Orders Completedby Physician Reviewing ProviderFranky Mattson MD at 12-Nov-2022 12:40:39 Appointments: Follow-Up Appointment 01: Physician/Dept/ServiceDr. Mattson- General Surgery Reason for ReferralFollowup laparoscopy cholecystectomy Call to Schedule in10-14 days [phone] Electronic Signatures: Franky Mattson) (Signed 12-Nov-2022 12:40) Authored: Discharge Orders, Provider FINAL REVIEW of Orders, Gold Form - Hospice/Home Health Aide Summary Tammi Mcgraw (MATT) (Signed 12-Nov-2022 13:33) Authored: Appointments Last Updated: 12-Nov-2022 13:33 by Tammi Mcgraw (MATT) Normal [facility] GLUCOSE-POCTon 11-12-2022 Glucose [Mass/Vol] 116 mg/dL High 74 - 99 [facility] Comment on above: Performed By: #### G AIXA ####[facility] [place] [address] Glucose [Mass/Vol] 93 mg/dL Normal 74 - 99 [facility] Comment on above: Performed By: #### G AIXA ####[facility] [facility] [place] [address] Laboratory - Chemistry and C hemistry - challengeon 11-12-2022 Glucose [Mass/Vol] 116 mg/dL above high threshold 74 - 99 [place] [address] Work Phone: Glucose [Mass/Vol] 93 mg/dL 74 - 99 [facility] [place] [address] Work Phone: Albumin BCP dye [Mass/Vol] 3.3 g/dL below low threshold 3.4 - 5.0 [place] [address] Work Phone: ALP [Catalytic activity/Vol] 70 U/L 33 - 136 [place] [address] Work Phone: ALT With P-5'-P [Catalytic activity/Vol] 20 U/L 10 - 52 [place] [address] Work Phone: Comment on above: Patients treated wit h Sulfasalazine may generate falsely decreased results for ALT. Anion gap [Moles/Vol] 16 mmol/L 10 - 20 - [place] [address] Work Phone: AST With P-5'-P [Catalytic activity/Vol] 38 U/L 9 - 39 -[place] [address] Work Phone: Bilirubin [Mass/Vol] 0.6 mg/dL 0.0 - 1.2 [facility] [place] [address] Work Phone: Calcium [Mass/Vol] 8.8 mg/dL 8.6 - 10.3 [facility] [place] [address] Work Phone: Chloride [Moles/Vol] 104 mmol/L 98 - 107 [facility] [place] [address] Work Phone: CO2 [Moles/Vol] 19 mmol/L below low threshold 21 - 32 -[place] [address] Work Phone: Creatinine [Mass/Vol] 0.98 mg/dL See Below [place] [address] Work Phone: Comment on above: Reference Range: 0.5 0 - 1.30 Glucose [Mass/Vol] 88 mg/dL 74 - 99 [place] [address] Work Phone: Potassium [Moles/Vol] 4.3 mmol/L 3.5 - 5.3 [place] [address] Work Phone: Protein [Mass/Vol] 6.1 g/dL below low threshold 6.4 - 8.2 [place] [address] Work Phone: Sodium [Moles/Vol] 135 mmol/L below low threshold 136 - 145 [place] [address] Work Phone: Urea nitrogen [Mass/Vol] 19 mg/dL 6 - 23 [place] [address] Work Phone: Laboratory - Hematology and Cell countson 11-12-2022 Erythrocyte distribution width (RBC) [Ratio] 16.0 % above high threshold See Below [place] [address] Work Phone: Comment on above: Reference Range: 11. 5 - 14.5 Hematocrit (Bld) [Volume fraction] 39.3 % below low threshold See Below [place] [address] Work Phone: Comment on above: Reference Range: 41. 0 - 52.0 Hemoglobin (Bld) [Mass/Vol] 11.7 g/dL below low threshold See Below [place] [address] Work Phone: Comment on above: Reference Range: 13. 5 - 17.5 MCHC (RBC) [Mass/Vol] 29.8 g/dL below low threshold See Below [place] [address] Work Phone: Comment on above: Reference Range: 32. 0 - 36.0 MCV (RBC) [Entitic vol] 92 fL 80 - 100 [place] [address] Work Phone: Platelets (Bld) [#/Vol] 164 10*3/uL 150 - 450 -[place] [address] Work Phone: RBC (Bld) [#/Vol] 4.25 {x10E12/L} below low threshold See Below [place] [address] Work Phone: Comment on above: Reference Range: 4.5 0 - 5.90 WBC (Bld) [#/Vol] 12.7 10*3/uL above high threshold 4.4 - 11.3 -[place] [address] Work Phone: MAGNESIUMon 11-12-2022 Magnesium [Mass/Vol] 1.72 mg/dL Normal 1.60 - 2.40 [facility] Comment on above: Performed By: #### M G ####[facility] [place] [address] Magnesium, Serumon Magnesium [Mass/Vol] 1.72 mg/dL See Below [facility] [place] [address] Work Phone: Comment on above: Reference Range: 1.6 0 - 2.40 No Panel Informationon 11-12 82 {mL/min/1.73m2} >90 -[place] [address] Work Phone: Comment on above: CALCULATIONS OF BEV MATED GFR ARE PERFORMED USING THE 2020 CKD-EPI STUDY REFIT EQUATION WITHOUT THE RACE VARIABLE FOR THE IDMS-TRACEABLE CREATININE METHODS.https://jasn.asnjournals.org/content/early//A SN.9657461482 0.0 {/100_WBC} 0.0 - 0.0 [place] [address] Work Phone: OT Evaluation v2-occupationa l therapy - eval and treaton 11-12-2022 OT Evaluation v2-occupational therapy - eval and treat Rehab: Info: Mode of Treatmentoccupational therapy; eval and treat Time IN11:47 Time OUT12:09 Total Treatment [id number] Patient in ... at end of sessionbed, 3 railings up; alarm on Communicated with ... at end of sessionbedside nurse Patient Effortgood Symptoms Noted During/After Treatmentnone Patient Profile Reviewedyes Onset of Illness/Injury or Date of [id number] Reason for ReferralADL's; Safety Assessment Referring PhysicianFranky Mattson MD General Observations of PatientChart reviewed, cleared by RN to work with pt. On arrival, pt supine in bed with daughter and granddaughter at bedside. Pt in no apparent distress and willing to participate in therapy. Pertinent History of Current Functional [facility]Pt [facility]: Post Operative Note - OR [Charted Location: [place] ] [Date of Service: 11-Nov-2022 11:27 [...] (Cognition)oriented x 3; states he is in [place] when asked, but could not remember the name of the hospital ROM: Upper Extremity: Range of Motionleft upper extremity ROM WNL; right upper extremity ROM WNL Mobility/Tone: Bed Mobility Assessment/Interventionssu pine to sit; sit to supine Vozsja-mb-Suo [place] (Bed Mobility)contact guard Vod-xs-Wswyaj [place] (Bed Mobility)contact guard Assistive Device (Bed Mobility)bed rails Comment, Bed Mobilitylog roll technique Transfer Assessment/Interventionssi t to stand transfer; stand to sit transfer Sit-Stand [place] (Transfers)contact guard Stand-Sit [place] (Transfers)contact guard Gait/Stairs Locomotiongait/ambulation independence; gait/ambulation assistive device Gait Locomotion (Gait)contact guard Assistive Device (Gait Training)R MAINTENANCE WORKER HOUSE TRAILER for safety ADL: BADL Assessment/Interventionupp er body dressing; lower body dressing [place] Level (Upper Body Dressing)set up; standby assist [place] Level (Lower Body Dressing)set up; standby assist Motor: Sitting, Static (Balance)good balance Sitting, Dynamic (Balance)fair plus Due-ym-Zmwgn (Balance)fair plus Standing, Static (Balance)fair plus Standing, Dynamic (Balance)fair balance Sensory: Pre-Treatment Pain Rating6/10 Comment, Pre/Post Treatment Painabdomen Sensory General Assessmentno sensation deficits identified Health: Observed Emotional Statecooperative; pleasant Plan of Care Reviewed Withpatient; daughter Impression: OT [id number] weakness Occupational Therapy Prognosisgood Functional Level at [...] Ken Suero (more content not included)... Normal [facility] Order Reconciliationon 04-27 -2023 Order Reconciliation Page 1 Discharge Reconciliation Document Reconciliation Type: Discharge requested on behalf of Shaniqua Iraheta (Advanced Practice Nurse) done by Shaniqua Iraheta ([facility]) Discharge - Reconciliation: 12-Nov-2022 12:40 by: Franky Mattson) Discharge - Reset to Incomplete: 12-Nov-2022 13:34 by: Shaniqua Iraheta ([facility]) Discharge - Reconciliation: 12-Nov-2022 13:35 by: Shaniqua Iraheta ([facility]) Home Medications EnteredHOME MEDICATIONS AT DISCHARGE [...] Injectable DOS (more content not included)... Normal [facility] PHOSPHORUSon 11-12-2022 Phosphate [Mass/Vol] 3.9 mg/dL Normal 2.5 - 4.9 [facility] Comment on above: Result Comment: The performance characteristics of phosphorus testing in heparinized plasma have been validated by the individual laboratory site where testing is performed. Testing on heparinized plasma is not approved by the FDA; however, such approval is not necessary. Performed By: #### P HOS ####[facility] [place] [address] PT Evaluation v2on 3 PT Evaluation v2 Rehab: Info: Time IN11:45 Time OUT12:09 Total Treatment [id number] Patient in ... at end of sessionbed, 3 railings up; alarm on; daughter and granddaughter at bedside Communicated with ... at end of sessionbedside nurse Patient Effortgood Symptoms Noted During/After Treatmentnone Patient Profile Reviewedyes Onset of Illness/Injury or Date of [id number] Reason for Referralimpaired mobility, impaired cognition/safety awareness; [...] liver function test. He was transferred to [facility]. He was found to have choledocholithiasis [...] (Cognition)oriented x 3; states he is in [place] when asked, but could not remember the name of the hospital ROM: Lower Extremity: Range of Motionleft lower extremity ROM WFL; right lower extremity ROM WFL MMT: Lower Extremity: Manual Muscle Testing (MMT)left lower extremity strength WFL; right lower extremity strength WFL; assessed functionally secondary to abdominal surgery Mobility/Tone: Bed Mobility Assessment/Interventionssu pine to sit; sit to supine Vgfzkw-je-Xwo [place] (Bed Mobility)contact guard Lbp-ug-Zwkvpt [place] (Bed Mobility)contact guard Assistive Device (Bed Mobility)bed rails Comment, Bed Mobilitylog roll technique Transfer Assessment/Interventionssi t to stand transfer; stand to sit transfer Sit-Stand [place] (Transfers)contact guard Stand-Sit [place] (Transfers)contact guard Gait/Stairs Locomotiongait/ambulation independence; gait/ambulation assistive device; distance ambulated Gait Locomotion (Gait)contact guard Assistive Device (Gait Training)R MAINTENANCE WORKER HOUSE TRAILER for safety Distance in Feet (Gait Training)250 ft Motor: Sitting, Static (Balance)good balance Sitting, Dynamic (Balance)fair plus Sgm-om-Itnjq (Balance)fair plus Standing, Static (Balance)fair plus Standing, [...] risk Ed (more content not included)... Normal [facility] Phosphorus, Serumon 11-13-19 23 Phosphate [Mass/Vol] 3.9 mg/dL 2.5 - 4.9 [facility] [address] Work Phone: Comment on above: The performance lena acteristics of phosphorus testing in heparinized plasma have been validated by the individual laboratory site where testing is performed. Testing on heparinized plasma is not approved by the FDA; however, such approval is not necessary. UA MICROSCOPICon 11-12-2022 RBC 5-20 Abnormal 0-5 [facility] Comment on above: Performed By: #### M G #### [address] [place] [address] WBC 0-5 Normal 0-5 [facility] Comment on above: Performed By: #### M G #### [address] [address] URINALYSIS WITH CULTURE IF I NDICATEDon 11-12-2022 Appearance (U) CLEAR Normal CLEAR [facility] Comment on above: Performed By: #### T RPHS #### [address] [address] Bilirubin Ql (U) Negative Normal NEGATIVE [facility] Comment on above: Performed By: #### T RPHS #### [address] [address] Color (U) YELLOW Normal STRAW,YELL OW [facility] Comment on above: Performed By: #### T RPHS #### [address] [address] Glucose Ql (U) Negative Normal NEGATIVE [facility] Comment on above: Performed By: #### T RPHS #### [address] [address] Hemoglobin Ql (U) SMALL(1+) Abnormal NEGATIVE [facility] Comment on above: Performed By: #### T RPHS #### [address] [address] Ketones Ql (U) Negative Normal NEGATIVE [facility] Comment on above: Performed By: #### T RPHS #### [address] [address] Leukocyte esterase Test strip Ql (U) Negative Normal NEGATIVE [facility] Comment on above: Performed By: #### T RPHS #### [address] [place] [address] Nitrite Ql (U) Negative Normal NEGATIVE [facility] Comment on above: Performed By: #### T RPHS #### [address] [place] [address] pH (U) 5.0 [pH] Normal 5.0 - 8.0 [facility] Comment on above: Performed By: #### T RPHS #### [address] [place] [address] Protein Ql (U) 100(2+) Abnormal NEGATIVE [facility] Comment on above: Performed By: #### T RPHS #### [address] [place] [address] Specific gravity (U) [Rel density] 1.018 Normal 1.005 - 1.035 [facility] Comment on above: Performed By: #### T RPHS #### [address] [place] [address] Urobilinogen (U) [Mass/Vol] 2.0 mg/dL High 0.0 - 1.9 [facility] Comment on above: Result Comment: Due to [...] false positive urobilinogen. Performed By: #### T RPHS #### [address] [place] [address] Lab Specimen Source Normal [facility] Comment on above: Performed By: #### T RPHS #### [address] [place] [address] Performed By: #### M G #### [address] [place] [address] Color (U) YELLOW See Below [facility] [address] Work Phone: Comment on above: SOURCE: Reference Ra nge: STRAW,YELLOW Glucose Ql (U) Negative NEGATIVE [place] [address] Work Phone: Ketones Ql (U) Negative NEGATIVE [place] [address] Work Phone: Leukocyte esterase Test strip Ql (U) Negative NEGATIVE [place] [address] Work Phone: pH (U) 5.0 [pH] 5.0 - 8.0 [place] [address] Work Phone: Protein (U) [Mass/Vol] 100(2+) Abnormal NEGATIVE [place] [address] Work Phone: RBC (U) [#/Vol] SMALL(1+) Abnormal NEGATIVE [place] [address] Work Phone: Specific gravity (U) [Rel density] 1.018 1 See Below [place] [address] Work Phone: Comment on above: Reference Range: 1.0 05 - 1.035 URINALYSIS WITH CULTURE IF INDICATED Negative NEGATIVE [place] [address] Work Phone: URINALYSIS WITH CULTURE IF INDICATED 2.0 mg/dL above high threshold 0.0 - 1.9 [place] [address] Work Phone: Comment on above: Due to [...] URINALYSIS WITH CULTURE IF INDICATED CLEAR CLEAR [place] [address] Work Phone: Urinalysis, Microscopicon Urinalysis, Microscopic 5-20 Abnormal 0-5 [place] [address] Work Phone: Urinalysis, Microscopic 0-5 0-5 [facility] [address] Work Phone: Comment on above: SOURCE: BASIC METABOLIC PANELon 04-2 Anion gap [Moles/Vol] 13 mmol/L Normal 10 - 20 [facility] Comment on above: Performed By: #### M G #### [address] [address] Calcium [Mass/Vol] 9.3 mg/dL Normal 8.6 - 10.3 [facility] Comment on above: Performed By: #### M G #### [address] [address] Chloride [Moles/Vol] 104 mmol/L Normal 98 - 107 [facility] Comment on above: Performed By: #### M G #### [address] [address] Creatinine [Mass/Vol] 1.12 mg/dL Normal 0.50 - 1.30 [facility] Comment on above: Performed By: #### M G #### [address] [address] GFR/1.73 sq M.predicted among non-blacks MDRD (S/P/Bld) [Vol rate/Area] 70 mL/min/{1.73_m2} Normal >90 [facility] Comment on above: Result Comment: CALC ULATIONS OF ESTIMATED GFR ARE PERFORMED USING THE 2020 CKD-EPI STUDY REFIT EQUATION WITHOUT THE RACE VARIABLE FOR THE IDMS-TRACEABLE CREATININE METHODS. https://jasn.asnjournals.org/content/early//ASN.81788 [address] Performed By: #### M G #### [address] [place] [address] Glucose [Mass/Vol] 140 mg/dL High 74 - 99 [facility] Comment on above: Performed By: #### M G #### [address] [place] [address] HCO3 (Bld) [Moles/Vol] 24 mmol/L Normal 21 - 32 [facility] Comment on above: Performed By: #### M G #### [address] [place] [address] Potassium [Moles/Vol] 3.8 mmol/L Normal 3.5 - 5.3 [facility] Comment on above: Performed By: #### M G #### [address] [place] [address] Sodium [Moles/Vol] 137 mmol/L Normal 136 - 145 [facility] Comment on above: Performed By: #### M G #### [address] [place] [address] Urea nitrogen [Mass/Vol] 20 mg/dL Normal 6 - 23 [facility] Comment on above: Performed By: #### M G #### [address] [place] [address] CBCon 11-11-2022 Erythrocyte distribution width (RBC) [Ratio] 15.9 % High 11.5 - 14.5 [facility] Comment on above: Performed By: #### M G #### [address] [place] [address] Hematocrit (Bld) [Volume fraction] 41.3 % Normal 41.0 - 52.0 [facility] [facility] Comment on above: Performed By: #### M G #### [address] [place] [address] Hemoglobin (Bld) [Mass/Vol] 12.8 g/dL Low 13.5 - 17.5 [facility] Comment on above: Performed By: #### M G #### [address] [place] [address] MCHC (RBC) [Mass/Vol] 31.0 g/dL Low 32.0 - 36.0 [facility] Comment on above: Performed By: #### M G #### [address] [place] [address] MCV (RBC) [Entitic vol] 89 fL Normal 80 - 100 [facility] Comment on above: Performed By: #### M G #### [address] [place] [address] NUCLEATED RBC 0.0 /100 WBC Normal 0.0 - 0.0 [facility] Comment on above: Performed By: #### M G #### [address] [place] [address] Platelets (Bld) [#/Vol] 185 10*3/uL Normal 150 - 450 [facility] Comment on above: Performed By: #### M G #### [address] [place] [address] RBC 4.62 x10E12/L Normal 4.50 - 5.90 [facility] Comment on above: Performed By: #### M G #### [address] [address] WBC (Bld) [#/Vol] 17.8 10*3/uL High 4.4 - 11.3 [facility] Comment on above: Performed By: #### M G #### [address] [place] [address] Consult-General Internal Med [facility] 11-11-2022 Consult-General Internal Medicine Service: Service: General [...] a 72 year old Male presented to [facility] for elective cholecystectomy and admitted to general surgery. Hospitalist was consulted for medical management. Per medical records 11/09-Patient initially presented with abdominal pain and abnormal liver function test. He was transferred to [facility]. He was found to have choledocholithiasis [...] left iliac artery aneurysm, two vessel CAD, OH, COPD, DM2, HTN, HLD, nicotine dependency Past [...] reviewed these laboratory results: Glucose_POCT Trending View [id number] 11:48:00 11-Nov-2022 08:25:00 Glucose-UUMT512 H 106 H Assessment: Patient initially presented with abdominal pain and abnormal liver function test. He was transferred to [facility]. He was found to have choledocholithiasis [...] dependency hx (more content not included)... Normal [facility] GLUCOSE-POCTon 11-11-2022 Glucose [Mass/Vol] 134 mg/dL High 74 - 99 [facility] Comment on above: Performed By: #### M G #### [facility] [address] [place] [address] Glucose [Mass/Vol] 117 mg/dL High 74 - 99 [facility] Comment on above: Performed By: #### G AIXA ####[facility] [facility] [place] [address] Glucose [Mass/Vol] 106 mg/dL High 74 - 99 [facility] Comment on above: Performed By: #### M G #### [facility] [address] [facility] [place] [address] Laboratory - Chemistry and C hemistry - challengeon 11-11-2022 Glucose [Mass/Vol] 134 mg/dL above high threshold 74 - 99 -[place] [address] Work Phone: Anion gap [Moles/Vol] 13 mmol/L 10 - 20 - [facility] [place] [address] Work Phone: Calcium [Mass/Vol] 9.3 mg/dL 8.6 - 10.3 -[facility] [place] [address] Work Phone: Chloride [Moles/Vol] 104 mmol/L 98 - 107 MP-U [facility] [place] [address] Work Phone: CO2 [Moles/Vol] 24 mmol/L 21 - 32 -[facility] [place] [address] Work Phone: Creatinine [Mass/Vol] 1.12 mg/dL See Below - [facility] [place] [address] Work Phone: Comment on above: Reference Range: 0.5 0 - 1.30 Glucose [Mass/Vol] 140 mg/dL above high threshold 74 - 99 -[place] [address] Work Phone: Potassium [Moles/Vol] 3.8 mmol/L 3.5 - 5.3 - [facility] [place] [address] Work Phone: Sodium [Moles/Vol] 137 mmol/L 136 - 145 MP-[facility] [place] [address] Work Phone: Urea nitrogen [Mass/Vol] 20 mg/dL 6 - 23 -[place] [address] Work Phone: Glucose [Mass/Vol] 117 mg/dL above high threshold 74 - 99 -[place] [address] Work Phone: Glucose [Mass/Vol] 106 mg/dL above high threshold 74 - 99 [place] [address] Work Phone: Laboratory - Hematology and Cell countson 11-11-2022 Erythrocyte distribution width (RBC) [Ratio] 15.9 % above high threshold See Below [place] [address] Work Phone: Comment on above: Reference Range: 11. 5 - 14.5 Hematocrit (Bld) [Volume fraction] 41.3 % See Below [place] [address] Work Phone: Comment on above: Reference Range: 41. 0 - 52.0 Hemoglobin (Bld) [Mass/Vol] 12.8 g/dL below low threshold See Below [place] [address] Work Phone: Comment on above: Reference Range: 13. 5 - 17.5 MCHC (RBC) [Mass/Vol] 31.0 g/dL below low threshold See Below [place] [address] Work Phone: Comment on above: Reference Range: 32. 0 - 36.0 MCV (RBC) [Entitic vol] 89 fL 80 - 100 [place] [address] Work Phone: Platelets (Bld) [#/Vol] 185 10*3/uL 150 - 450 [place] [address] Work Phone: RBC (Bld) [#/Vol] 4.62 {x10E12/L} See Below [place] [address] Work Phone: Comment on above: Reference Range: 4.5 0 - 5.90 WBC (Bld) [#/Vol] 17.8 10*3/uL above high threshold 4.4 - 11.3 [place] [address] Work Phone: No Panel Informationon 11-11 70 {mL/min/1.73m2} >90 [place] [address] Work Phone: Comment on above: CALCULATIONS OF BEV MATED GFR ARE PERFORMED USING THE 2020 CKD-EPI STUDY REFIT EQUATION WITHOUT THE RACE VARIABLE FOR THE IDMS-TRACEABLE CREATININE METHODS.https://jasn.asnjournals.org/content//A SN.3989092337 0.0 {/100_WBC} 0.0 - 0.0 -[facility] [address] Work Phone: Operative Reports - [place] on 11-11-2022 Operative Reports - [place] SURGEON: Franky Mattson MD PREOPERATIVE DIAGNOSIS: History of choledocholithiasis and prior placement of stent, cholelithiasis. POSTOPERATIVE DIAGNOSIS: History of choledocholithiasis and prior placement of stent, cholelithiasis. PROCEDURE PERFORMED: Laparoscopic cholecystectomy with intraoperative cholangiogram. ELDER ASSISTANT: SA. ANESTHESIA: General. INDICATION FOR PROCEDURE: The patient is a 72-year-old male with a prior history of cholangitis, ERCP, stent placement and subsequent recovery. He presents now for cholecystectomy. Risks, benefits, indications for this reviewed with him and his family. Potential bleeding, infection, OH, PE, , etc. were reviewed. The anticipated [...] Franky Mattson MD EST EST DICTATION NUMBER: [id number] INTERNAL JOB NUMBER: [id number] CC: MK GARCIA Electronic Signatures: Franky Mattson) (Signed on 12-Nov-2022 07:25) Authored Unsigned, Draft (SYS GENERATED) (Entered on 11-Nov-2022 12:43) Entered Last Updated: 12-Nov-2022 07:25 by Franky Mattson) [facility] Order Reconciliationon 11-11 Order Reconciliation Page 1 Admission Reconciliation Document Reconciliation Type: Admission from OR requested on behalf of Erin Silva (Advanced Practice Nurse) done by Erin Silva (MARINE EQUIPMENT SALES ENGINEER-[facility]) Admission from OR - Reconciliation: 11-Nov-2022 14:58 by: Erin Silva (MARINE EQUIPMENT SALES ENGINEER-[facility]) Home MedicationsEnteredLast Dose TakenReconciled with current Order Reconciliation Comment/ Additional Information Aspir 81 oral delayed release tablet 1 tab(s) orally once a [id number]-Nov-2022 AM Aspirin Enteric Coated Enteric Coated Tablet (ECOTRIN)DOSE = 81 mg Oral DailyAspir 81 oral delayed release tablet is continued and suspended as Aspirin Enteric Coated codeine-acetaminophen 30 mg-300 mg oral tablet 1 tab(s) orally every 4 hours 11-Nov-2022 Reviewed and Held esomeprazole 40 mg oral delayed release capsule 1 cap(s) orally 2 times a day [id number] AM Pantoprazole Enteric Coated Tablet (PROTONIX)DOSE = 40 mg Oral 2 Times a DayNotes from Pharmacy: Substitution for Esomeprazole 40 mg Oral Capsule Dailyesomeprazole 40 mg oral delayed release capsule continued as the inpatient order Pantoprazole ferrous sulfate 325 mg (65 mg elemental iron) oral tablet 1 tab(s) orally once a [id number] AM Ferrous Sulfate Tablet (FEOSOL)DOSE = 325 mg Oral Dailyferrous sulfate 325 mg (65 mg elemental iron) oral tablet continued as the inpatient order Ferrous Sulfate hydrocodone-acetaminophen 5 mg-325 mg oral tablet 1 tab(s) orally every 6 hours, As Needed - for [id number] UNKNOWN Reviewed and Held metFORMIN 500 mg oral tablet, extended release 1 tab(s) orally 2 times a day [id number] AM Reviewed and Held metoprolol succinate 50 mg oral tablet, extended release 1 tab(s) orally once a [id number] 6:00 AM Metoprolol Succinate Extended Release Tablet, Extended Release (TOPROL-XL)DOSE = 50 mg Oral Dailymetoprolol succinate 50 mg oral tablet, extended release continued as the inpatient order Metoprolol Succinate Extended Release oxyCODONE 10 mg oral tablet 1 tab(s) orally every 6 hours as needed for severe [id number] UNKNOWN Reviewed and Held PARoxetine 20 mg oral tablet 1 tab(s) orally once a day (at bedtime) 389156-Wow-7328 PM PARoxetine Tablet (PAXIL)DOSE = 20 mg Oral Daily PARoxetine 20 mg oral tablet continued as the inpatient order PARoxetine rosuvastatin 40 mg oral tablet 0.5 tab(s) orally once a day (at bedtime) [id number]-Yku-4064 PM Rosuvastatin Tablet (CRESTOR)DOSE = 20 mg Oral Dailyrosuvastatin 40 mg oral tablet continued as the inpatient order Rosuvastatin tolterodine 2 mg oral capsule, extended release 1 cap(s) orally Wednesday, Wednesday, and [id number] 23 Oxybutynin Tablet (DITROPAN)DOSE = 5 mg Oral ( every 1 week: :00, :, , , , )Notes from Pharmacy: Substitution for Tolterodine ER (Detrol LA) 2 mg Oral Dailytolterodine 2 mg oral capsule, extended release continued as the inpatient order Oxybutynin valsartan 160 mg oral tablet 1 tab(s) orally once a [id number] AM Valsartan Tablet (DIOVAN)DOSE = 160 mg [...] Every 8 Hours and as Needed Normal [facility] Patient Profile - Preop v3on 11-11-2022 Patient Profile - Preop v3 Patient Profile - Preop: Initial Info: Patient DemographicsName: GOPAL IRVING Date: 1950 Address: [address] [place] [address] Primary Phone [phone] How to be Addressedtommy Spoken Language PreferredEnglish Source of Informationpatient Stated Reason for Admissionremoving gall bladder Primary Contact Name and Numberdaughter Limitations on Visitors/Phone Callsnone Medications Brought to Hospitalno General Health: Weight in kg57.1 kilogram(s) Weight in gnu333.8 pound(s) Weight Methodstated Height in feet5 feet [...] child(dez) Living Arrangementshouse Resource/Environmental Concernsnone Anticipated Transition [place] [facility] Anticipated at Transitionnone Tobacco Use: Tobacco Useyes Tobacco Typecigarettes Last Tobacco [id number]-9841 Number of Packs per Day1 Pre-op Checklist: Arrival [id number]-Jzt-7357 Arrival Time08:30 NPOyes Last Food Lewijc76-Vxx-5632 17:00 Last Clear Fluid Sqaknx62-Zof-7150 06:00 ID Band On Patientpatient ID (name), allergy Consent Signedyes H&P Completeyes Anesthesia Assessment Completedyes EKG Performedyes Chest X-Ray Performednot ordered Preop Antibioticssent to OR Beta-richard Last Dose Date/Fvkt10-Mqd-2224 06:00 COVID 19 Results in Last 7 daysnot ordered Glucose [id number] Type and Screen Resultedn/a Chlorhexadine Bath Givennot [...] 09:34 by Milagro Bobby (STAFF N) Normal [facility] Radiologyon 11-11-2022 Fluoroscopy duration Please click on the link to view the study images Normal -[facility] [address] Work Phone: [facility] Surgical Pathology Depar tmenton 11-11-2022 [facility] Surgical Pathology Department Name GOPAL IRVING Pathologist: JAMIN RUIZ M.D. Date of Procedure: 11/11/2022 Date Received: 11/11/2022 Date Reported 11/30/2022 Submitting Physician: FRANKY MATTSON MD Location: [facility] Copy To/Referring/Attending: ALYSSIA WEBER MD Other External # FINAL DIAGNOSIS GALLBLADDER, CHOLECYSTECTOMY: -- CHRONIC CHOLECYSTITIS AND CHOLELITHIASIS. Electronically Signed Out By JAMIN RUIZ M.D./ALCON By the signature on this report, the individual or group listed as making the Final Interpretation/Diagnosis certifies that they have reviewed this case. Diagnostic interpretation performed at [address] [place] [address] Clinical History: Clinical Diagnosis History: a 72 [...] The mucosal surface is musa and velvety. Paper Coating Machine Operator sections consisting of the cystic duct margin and gallbladder wall are submitted in one cassette. GURMEET gurmeet/11/26/2022 [facility] Department of Pathology [address] [place] [address] Normal [facility] Comment on above: Performed By: #### [facility] #### [facility] Surgical Pathology Department [address] [place] [address] Clinical Intervention - Johnnie broderick 11-08-2022 Clinical Intervention - Pharmacy Pharmacist's Clinical Intervention: Is this intervention medication reconciliation related: yes, HISTORY CALL Electronic Signatures: Paulette Lawson (SHARKMARX) (Signed 08-Nov-2022 18:32) Authored: Pharmacist's Clinical Intervention Last Updated: 08-Nov-2022 18:32 by Paulette Lawson (SHARKMARX) Normal [facility] AMYLASEon 10-28-2022 Amylase [Catalytic activity/Vol] 41 U/L Normal 25-115 [facility] Comment on above: Performed By: #### V ITAD, PSASC #### [facility] [address] [place] [address] Dr. Charlotte Awan CBC AUTO DIFFon 10-28-2022 BASO # 0.1 103/ul Normal 0.0-0.1 [facility] Comment on above: Performed By: #### V ITAD, PSASC #### [facility] [address] [place] [address] Dr. Charlotte Awan Basophils/100 WBC (Bld) 1.2 % Normal 0.2-2.0 [facility] Comment on above: Performed By: #### V ITAD, PSASC #### [facility] [address] [place] [address] Dr. Charlotte Awan EO # 0.8 103/ul Critically high 0.0-0.7 [facility] Comment on above: Performed By: #### V ITAD, PSASC #### [facility] [address] [place] [address] [address] Charlotte Awan Eosinophils/100 WBC (Bld) 7.9 % Critically high 0.9-7.0 [facility] Comment on above: Performed By: #### V ITAD, PSASC #### [facility] [address] [place] [address] Dr. Charlotte Awan Erythrocyte distribution width (RBC) [Ratio] 16.0 % Critically high 11.0-15.0 [facility] Comment on above: Performed By: #### V ITAD, PSASC #### [facility] [address] [place] [address] Dr. Charlotte Awan Hematocrit (Bld) [Volume fraction] 38.9 % Critically low 42.0-54.0 [facility] Comment on above: Performed By: #### V ITAD, PSASC #### [facility] [address] [place] [address] Dr. Charlotte Awan Hemoglobin (Bld) [Mass/Vol] 12.3 g/dL Critically low 14.0-18.0 [facility] Comment on above: Performed By: #### V ITAD, PSASC #### [facility] [address] [place] [address] Dr. Charlotte Awan IG # 0.02 10e3/ul Normal 0.00-0.03 [facility] Comment on above: Performed By: #### V ITAD, PSASC #### [facility] [address] [place] [address] Dr. Charlotte Awan IG % 0.2 % Normal 0.0-0.5 [facility] Comment on above: Performed By: #### V ITAD, PSASC #### [facility] [address] [place] [address] Dr. Charlotte Awan LYMPH # 3.2 103/ul Normal 1.2-3.8 [facility] Comment on above: Performed By: #### V ITAD, PSASC #### [facility] [address] [place] [address] Dr. Charlotte Awan Lymphocytes/100 WBC (Bld) 33.3 % Normal 20.5-60.0 [facility] Comment on above: Performed By: #### V ITAD, PSASC #### [facility] [address] [place] [address] Dr. Charlotte Awan MANUAL DIFF REQ NO Normal [facility] Comment on above: Performed By: #### V ITAD, PSASC #### [facility] [address] [place] [address] Dr. Charlotte Awan MCH (RBC) [Entitic mass] 27.6 pg Normal 25.9-34.0 [facility] Comment on above: Performed By: #### V ITAD, PSASC #### [facility] [address] [place] [address] Dr. Charlotte Awan MCHC (RBC) [Mass/Vol] 31.6 g/dL Normal 29.9-35.2 [facility] Comment on above: Performed By: #### V ITAD, PSASC #### [facility] [address] [place] [address] Dr. Charlotte Awan MCV (RBC) [Entitic vol] 87.4 fL Normal 80.0-94.0 [facility] Comment on above: Performed By: #### V ITAD, PSASC #### [facility] [address] [place] [address] Dr. Charlotte Awan MONO # 0.6 103/ul Normal 0.3-0.8 [facility] Comment on above: Performed By: #### V ITAD, PSASC #### [facility] [address] [place] [address] Dr. Charlotte Awan Monocytes/100 WBC (Bld) 6.0 % Normal 1.7-12.0 [facility] Comment on above: Performed By: #### V ITAD, PSASC #### [facility] [address] [place] [address] Dr. Charlotte Awan NEUT # 5.0 103/ul Normal 1.4-6.5 [facility] Comment on above: Performed By: #### V ITAD, PSASC #### [facility] [address] [place] [address] Dr. Charlotte Awan Neutrophils/100 WBC (Bld) 51.4 % Normal 43.0-75.0 [facility] Comment on above: Performed By: #### V ITAD, PSASC #### [facility] [address] [place] [address] Dr. Charlotte Awan Platelet mean volume (Bld) [Entitic vol] 11.6 fL Normal 9.5-13.5 [facility] Comment on above: Performed By: #### V ITAD, PSASC #### [facility] [address] [place] [address] Dr. Charlotte Awan PLT 180 103/ul Normal 150-450 [facility] Comment on above: Performed By: #### V ITAD, PSASC #### [facility] [address] [place] [address] Dr. Charlotte Awan RBC 4.45 106/ul Critically low 4.70-6.10 [facility] Comment on above: Performed By: #### V ITAD, PSASC #### [facility] [address] [place] [address] Dr. Charlotte Awan WBC 9.7 103/ul Normal 4.0-11.0 [facility] Comment on above: Performed By: #### V ITAD, PSASC #### [facility] [address] [place] [address] Dr. Charlotte Awan LIPASEon 10-28-2022 Lipase [Catalytic activity/Vol] 75.0 U/L Normal 73.0-393.0 [facility] Comment on above: Performed By: #### V ITAD, PSASC #### [facility] [address] [place] [address] Dr. Charlotte Awan LIVER PROFILEon 10-28-2022 Albumin [Mass/Vol] 2.9 g/dL Critically low 3.4-5.0 [facility] Comment on above: Performed By: #### V ITAD, PSASC #### [facility] [address] [place] [address] Dr. Charlotte Awan Albumin/Globulin [Mass ratio] 0.7 {ratio} Normal [facility] Comment on above: Performed By: #### V ITAD, PSASC #### [facility] [address] [place] [address] Dr. Charlotte Awan ALP [Catalytic activity/Vol] 112 U/L Normal 46-116 [facility] Comment on above: Performed By: #### V ITAD, PSASC #### [facility] [address] [place] [address] Dr. Charlotte Awan ALT [Catalytic activity/Vol] 19 U/L Normal 16-63 [facility] Comment on above: Performed By: #### V ITAD, PSASC #### [facility] [address] [place] [address] Dr. Charlotte Awan AST [Catalytic activity/Vol] 16 U/L Normal 15-37 [facility] Comment on above: Performed By: #### V ITAD, PSASC #### [facility] [address] [place] [address] Dr. Charlotte Awan BILI, CONJUGATED 0.1 mg/dL Normal 0.0-0.2 [facility] Comment on above: Performed By: #### V ITAD, PSASC #### [facility] [address] [place] [address] Dr. Charlotte Awan Bilirubin [Mass/Vol] 0.4 mg/dL Normal 0.2-1.0 [facility] Comment on above: Performed By: #### V ITAD, PSASC #### [facility] [address] [place] [address] Dr. Charlotte Awan Globulin (S) [Mass/Vol] 4.3 g/dL Normal [facility] Comment on above: Performed By: #### V ITAD, PSASC #### [facility] [address] [place] [address] Dr. Charlotte Awan Protein [Mass/Vol] 7.2 g/dL Normal 6.4-8.2 [facility] Comment on above: Performed By: #### V ITAD, PSASC #### [facility] [address] [place] [address] Dr. Charlotte Awan PROF CHEM 8 (BAS METB)on Anion gap [Moles/Vol] 11.7 mmol/L Normal [facility] Comment on above: Performed By: #### V ITAD, PSASC #### [facility] [address] [place] [address] Dr. Charlotte Awan Calcium [Mass/Vol] 9.7 mg/dL Normal 8.5-10.1 [facility] Comment on above: Performed By: #### V ITAD, PSASC #### [facility] [address] [place] [address] Dr. Charlotte Awan Chloride [Moles/Vol] 107 mmol/L Normal 98-107 [facility] Comment on above: Performed By: #### V ITAD, PSASC #### [facility] [address] [place] [address] [address] Charlotte Awan CO2 [Moles/Vol] 25.7 mmol/L Normal 21.0-32.0 [facility] Comment on above: Performed By: #### V ITAD, PSASC #### [facility] [address] [place] [address] [address] Charlotte Awan Creatinine [Mass/Vol] 0.97 mg/dL Normal 0.70-1.30 [facility] Comment on above: Performed By: #### V ITAD, PSASC #### [facility] [address] [place] [address] Dr. Charlotte Awan EGFR-AF SIERRA LEONEAN >60 Normal >=60 [facility] Comment on above: Performed By: #### V ITAD, PSASC #### [facility] [address] [place] [address] Dr. Charlotte Awan EGFR-NON AF SIERRA LEONEAN >60 Normal >=60 [facility] Comment on above: Performed By: #### V ITAD, PSASC #### [facility] [address] [place] [address] Dr. Charlotte Awan Glucose [Mass/Vol] 105 mg/dL Normal 74-106 [facility] Comment on above: Performed By: #### V ITAD, PSASC #### [facility] [address] [place] [address] [address] Charlotte Awan Potassium [Moles/Vol] 4.4 mmol/L Normal 3.5-5.1 [facility] Comment on above: Performed By: #### V ITAD, PSASC #### [facility] [address] [place] [address] Dr. Charlotte Awan Sodium [Moles/Vol] 140 mmol/L Normal 136-145 [facility] Comment on above: Performed By: #### V ITAD, PSASC #### [facility] [address] [place] [address] Dr. Charlotte Awan Urea nitrogen [Mass/Vol] 15.0 mg/dL Normal 7.0-18.0 [facility] Comment on above: Performed By: #### V JUSTIN, PSASC #### [facility] [address] [place] [id number] Charlotte Awan Urea nitrogen/Creatinine [Mass ratio] 15.5 mg/mg Normal [facility] Comment on above: Performed By: #### V JUSTIN, PSASC #### [facility] [id number] Charlotte Awan Blood Pressure Cuff Sizeon 0 10-13-2022 Fall risk assessment a) No falls within the last year [facility] Work Phone: Tobacco use status CPHS a) Yes [facility] Work Phone: Blood Pressure Cuff Size Adult [facility] Work Phone: Blood Pressure Cuff Size Yes [facility] Work Phone: Follow Up (General [...] disease; ANDREW = N; Verified Transmission to [id number]; Msg to Pharmacy: Fill at patient [...] his cardiac status with Dr. Stern of [facility] in [facility]. Cardiac clearance is obtained we can proceed [...] patient and his family. Potential bleeding infection [place] PE etc. reviewed. The anticipated convalescence is reviewed. Potential need to convert from a laparoscopic to an open procedure reviewed. All questions were answered and consent is obtained Chief Complaint Hospital follow-up History of Present [id number]-uod male recently transferred from [place] for evaluation of abdominal pain of uncertain etiology. By the time he arrived at [place] he was becoming septic. He had abnormal [...] Coronary tim (more content not included)... Normal [facility] CBCon 10-08-2022 Erythrocyte distribution width (RBC) [Ratio] 15.9 % High 11.5 - 14.5 [facility] Comment on above: Performed By: #### C BC #### [address] [address] Hematocrit (Bld) [Volume fraction] 30.9 % Low 41.0 - 52.0 [facility] Comment on above: Performed By: #### C BC #### [address] [address] Hemoglobin (Bld) [Mass/Vol] 9.9 g/dL Low 13.5 - 17.5 [facility] Comment on above: Performed By: #### C BC #### [address] [address] MCHC (RBC) [Mass/Vol] 32.0 g/dL Normal 32.0 - 36.0 [facility] Comment on above: Performed By: #### C BC #### [address] [address] MCV (RBC) [Entitic vol] 88 fL Normal 80 - 100 [facility] Comment on above: Performed By: #### C BC #### [address] [address] NUCLEATED RBC 0.0 /100 WBC Normal 0.0 - 0.0 [facility] Comment on above: Performed By: #### C BC #### [address] [address] Platelets (Bld) [#/Vol] 274 10*3/uL Normal 150 - 450 [facility] Comment on above: Performed By: #### C BC #### [address] [address] RBC 3.51 x10E12/L Low 4.50 - 5.90 [facility] Comment on above: Performed By: #### C BC #### [address] [address] WBC (Bld) [#/Vol] 9.0 10*3/uL Normal 4.4 - 11.3 [facility] Comment on above: Performed By: #### C BC #### [address] [address] COMPREHENSIVE PANELon 2022 Albumin [Mass/Vol] 2.8 g/dL Low 3.4 - 5.0 [facility] Comment on above: Performed By: #### M G #### [address] [address] ALP [Catalytic activity/Vol] 175 U/L High 33 - 136 [facility] Comment on above: Performed By: #### M G #### [address] [address] ALT [Catalytic activity/Vol] 43 U/L Normal 10 - 52 [facility] Comment on above: Result Comment: Radha ents treated with Sulfasalazine may generate falsely decreased results for ALT. Performed By: #### M G #### [address] [address] Anion gap [Moles/Vol] 10 mmol/L Normal 10 - 20 [facility] Comment on above: Performed By: #### M G #### [address] [address] AST [Catalytic activity/Vol] 23 U/L Normal 9 - 39 [facility] Comment on above: Performed By: #### M G #### [address] [address] Bilirubin [Mass/Vol] 0.5 mg/dL Normal 0.0 - 1.2 [facility] Comment on above: Performed By: #### M G #### [address] [address] Calcium [Mass/Vol] 8.7 mg/dL Normal 8.6 - 10.3 [facility] Comment on above: Performed By: #### M G #### [address] [place] [address] Chloride [Moles/Vol] 108 mmol/L High 98 - 107 [facility] Comment on above: Performed By: #### M G #### [address] [place] [address] Creatinine [Mass/Vol] 0.96 mg/dL Normal 0.50 - 1.30 [facility] Comment on above: Performed By: #### M G #### [address] [place] [address] GFR/1.73 sq M.predicted among non-blacks MDRD (S/P/Bld) [Vol rate/Area] 84 mL/min/{1.73_m2} Normal >90 [facility] Comment on above: Result Comment: CALC ULATIONS OF ESTIMATED GFR ARE PERFORMED USING THE 2020 CKD-EPI STUDY REFIT EQUATION WITHOUT THE RACE VARIABLE FOR THE IDMS-TRACEABLE CREATININE METHODS. https://jasn.asnjournals.org/content/early//ASN.94265 [address]15 Performed By: #### M G #### [address] [place] [address] Glucose [Mass/Vol] 93 mg/dL Normal 74 - 99 [facility] Comment on above: Performed By: #### M G #### [address] [place] [address] HCO3 (Bld) [Moles/Vol] 27 mmol/L Normal 21 - 32 [facility] Comment on above: Performed By: #### M G #### [address] [place] [address] Potassium [Moles/Vol] 3.7 mmol/L Normal 3.5 - 5.3 [facility] Comment on above: Performed By: #### M G #### [address] [place] [address] Protein [Mass/Vol] 5.5 g/dL Low 6.4 - 8.2 [facility] Comment on above: Performed By: #### M G #### [facility] [address] [place] [address] Sodium [Moles/Vol] 141 mmol/L Normal 136 - 145 [facility] Comment on above: Performed By: #### M G #### [facility] [address] [place] [address] Urea nitrogen [Mass/Vol] 12 mg/dL Normal 6 - 23 [facility] Comment on above: Performed By: #### M G #### [facility] [address] [place] [address] Clinical Intervention - Johnnie broderick 10-08-2022 Clinical Intervention - Pharmacy Pharmacist's [...] - 10 minutes Electronic Signatures: Man Zavala ([facility]) (Signed 08-Oct-2022 15:27) Authored: Pharmacist's Clinical Intervention Last Updated: 08-Oct-2022 15:27 by Man Zavala ([facility]LY [facility]) [facility] Daily Progress Note-Acute Ca re Surgeryon 10-08-2022 Daily Progress Note-Acute Care Surgery Service: Acute Care Surgery Subjective Data: GOPAL IRVING is a 71 year old Male who is Hospital Day # 4. Additional Information: Denies fever, chills Tolerating diet Still has some right upper quadrant discomfort Objective Data: Objective Information: T PRBPMAPSpO2 [id number]/9697% Date/Time10/08 8: 8: 8: 8: 8:00 Range(35.8C - 36.7C ) (55 - 85 ) (16 - 18 ) (112 - 211 )/ (64 - 96 ) (95% - 98% ) Pain reported at 10/07 21:00: 0 = None T PRBPMAPSpO2 Value36.36185129/9697% Date/Time10/08 8: 8: 8: 8: 8:00 Range(35.8C - 36.7C ) (55 - [...] Updated: 08-Oct-2022 08:03 by Franky Mattson) Normal [facility] Discharge [id number] Discharge Profile2 Discharge Orders: Anticipated Discharge Date: Anticipated Discharge [id number] DNAR: Code Status at Discharge: Full Code [...] allowing us to participate in your care! -[facility] Inpatient Medicine Teaching Service. Home Care Orders: Face to Face Certification: Home Care Services Needed: yes Home Care Agency: [facility] [employer] [employer] Ordered: RN/CUTTER MACHINE, PT, OT Face to Face Encounter Completed: [...] Medication Reconciliation and Orders Completedby Physician Reviewing Estelle Kelly MD at 08-Oct-2022 09:57:46 Appointments: Follow-Up Appointment 01: Physician/Dept/ServiceDr. Mk Garcia Reason for ReferralHospital follow up Call to Schedule in2-3 days Follow-Up Appointment 02: Physician/Dept/ServiceDr. Mattson Reason for ReferralGallbladder surgery Call to Schedule in3 weeks Scheduled Date/[id number] 01:[address] [place] [id number] Phone [phone] CommentsPlease arrive 15 early to your appoinment and bring all insurance information Follow-Up Appointment 03: Physician/Dept/ServiceDr. Weber Reason for ReferralBiliary Stent Removal Call to Schedule in3 weeks Phone [phone] Electronic Signatures: Holland Cooper (Resident)) (Signed 08-Oct-2022 09:53) Authored: Discharge Orders, Home Care Orders, Provider FINAL REVIEW of Orders, Appointments, Gold Form - Hospice/Home Health Aide Summary Bethany Kelly) (Signed 08-Oct-2022 09:57) Authored: Discharge Orders, Home Care Orders, Provider FINAL REVIEW of Orders Tammi Mcgraw (RN) (Signed 08-Oct-2022 11:15) Authored: Discharge Orders, Appointments Last Updated: 08-Oct-2022 11:15 by Tammi Mcgraw (RN) Normal [facility] GLUCOSE-POCTon 10-08-2022 Glucose [Mass/Vol] 166 mg/dL High 74 - 99 [facility] Comment on above: Performed By: #### C BC #### [address] [address] Glucose [Mass/Vol] 93 mg/dL Normal 74 - 99 [facility] Comment on above: Performed By: #### [facility] #### [address] [address] Glucose [Mass/Vol] 92 mg/dL Normal 74 - 99 [facility] Comment on above: Performed By: #### C BC #### [address] [address] Laboratory - Chemistry and C hemistry - challengeon 10-08-2022 Glucose [Mass/Vol] 166 mg/dL above high threshold 74 - 99 [facility] Work Phone: Glucose [Mass/Vol] 93 mg/dL 74 - 99 [facility] Work Phone: Albumin BCP dye [Mass/Vol] 2.8 g/dL below low threshold 3.4 - 5.0 [facility] Work Phone: ALP [Catalytic activity/Vol] 175 U/L above high threshold 33 - 136 [facility] Work Phone: ALT With P-5'-P [Catalytic activity/Vol] 43 U/L 10 - 52 [facility] Work Phone: Comment on above: Patients treated wit h Sulfasalazine may generate falsely decreased results for ALT. Anion gap [Moles/Vol] 10 mmol/L 10 - 20 [facility] Work Phone: AST With P-5'-P [Catalytic activity/Vol] 23 U/L 9 - 39 [facility] Work Phone: Bilirubin [Mass/Vol] 0.5 mg/dL 0.0 - 1.2 [facility] Work Phone: Calcium [Mass/Vol] 8.7 mg/dL 8.6 - 10.3 -[facility] Work Phone: Chloride [Moles/Vol] 108 mmol/L above high threshold 98 - 107 [facility] Work Phone: CO2 [Moles/Vol] 27 mmol/L 21 - 32 -[facility] Work Phone: Creatinine [Mass/Vol] 0.96 mg/dL See Below - [facility] Work Phone: Comment on above: Reference Range: 0.5 0 - 1.30 Glucose [Mass/Vol] 93 mg/dL 74 - 99 [facility] Work Phone: Potassium [Moles/Vol] 3.7 mmol/L 3.5 - 5.3 [facility] Work Phone: Protein [Mass/Vol] 5.5 g/dL below low threshold 6.4 - 8.2 [facility] Work Phone: Sodium [Moles/Vol] 141 mmol/L 136 - 145 [facility] Work Phone: Urea nitrogen [Mass/Vol] 12 mg/dL - [facility] Work Phone: Laboratory - Hematology and Cell countson 10-08-2022 Erythrocyte distribution width (RBC) [Ratio] 15.9 % above high threshold See Below -[facility] Work Phone: Comment on above: Reference Range: 11. 5 - 14.5 Hematocrit (Bld) [Volume fraction] 30.9 % below low threshold See Below [facility] Work Phone: Comment on above: Reference Range: 41. 0 - 52.0 Hemoglobin (Bld) [Mass/Vol] 9.9 g/dL below low threshold See Below -[facility] Work Phone: Comment on above: Reference Range: 13. 5 - 17.5 MCHC (RBC) [Mass/Vol] 32.0 g/dL See Below - [facility] Work Phone: Comment on above: Reference Range: 32. 0 - 36.0 MCV (RBC) [Entitic vol] 88 fL 80 - 100 -[facility] Work Phone: Platelets (Bld) [#/Vol] 274 10*3/uL 150 - 450 [facility] Work Phone: RBC (Bld) [#/Vol] 3.51 {x10E12/L} below low threshold See Below [facility] Work Phone: Comment on above: Reference Range: 4.5 0 - 5.90 WBC (Bld) [#/Vol] 9.0 10*3/uL 4.4 - 11.3 [facility] Work Phone: MAGNESIUMon 10-08-2022 Magnesium [Mass/Vol] 1.99 mg/dL Normal 1.60 - 2.40 [facility] Comment on above: Performed By: #### [facility] #### [facility] [address] [place] [address] Magnesium, Serumon 3 Magnesium [Mass/Vol] 1.99 mg/dL See Below [facility] Work Phone: Comment on above: Reference Range: 1.6 0 - 2.40 No Panel Informationon 10-08 84 {mL/min/1.73m2} >90 [facility] Work Phone: Comment on above: CALCULATIONS OF BEV MATED GFR ARE PERFORMED USING THE 2020 CKD-EPI STUDY REFIT EQUATION WITHOUT THE RACE VARIABLE FOR THE IDMS-TRACEABLE CREATININE METHODS.https://jasn.asnjournals.org/content//A SN.2791454436 0.0 {/100_WBC} 0.0 - 0.0 [facility] Work Phone: Order Reconciliationon 10-08 Order Reconciliation [...] continued as MiraLax oral powder for reconstitution [place] 5 mg-325 mg oral tablet 1 tab(s) orally every 6 hours, As Needed - for pain 05-Oct-2022 12:05 [place] 5 mg-325 mg oral tablet 1 tab(s) orally every 6 hours, As Needed - for pain 05-Oct-2022 12:05 [place] 5 mg-325 mg oral tablet is continued as [place] 5 mg-325 mg oral tablet PARoxetine 20 [...] Call LIP (more content not included)... Normal [facility] CBCon 10-07-2022 Erythrocyte distribution width (RBC) [Ratio] 16.0 % High 11.5 - 14.5 [facility] Comment on above: Performed By: #### G AIXA #### [address] [address] Hematocrit (Bld) [Volume fraction] 29.9 % Low 41.0 - 52.0 [facility] Comment on above: Performed By: #### G AIXA #### [address] [address] Hemoglobin (Bld) [Mass/Vol] 9.5 g/dL Low 13.5 - 17.5 [facility] Comment on above: Performed By: #### G AIXA #### [address] [address] MCHC (RBC) [Mass/Vol] 31.8 g/dL Low 32.0 - 36.0 [facility] Comment on above: Performed By: #### G AIXA #### [address] [address] MCV (RBC) [Entitic vol] 88 fL Normal 80 - 100 [facility] Comment on above: Performed By: #### G AIXA #### [address] [address] NUCLEATED RBC 0.0 /100 WBC Normal 0.0 - 0.0 [facility] Comment on above: Performed By: #### G AIXA #### [address] [address] Platelets (Bld) [#/Vol] 231 10*3/uL Normal 150 - 450 [facility] Comment on above: Performed By: #### G AIXA #### [address] [address] RBC 3.38 x10E12/L Low 4.50 - 5.90 [facility] Comment on above: Performed By: #### G AIXA #### [facility] [address] [place] [address] WBC (Bld) [#/Vol] 11.6 10*3/uL High 4.4 - 11.3 [facility] Comment on above: Performed By: #### G AIXA #### [facility] [address] [place] [address] Daily Progress Note-Acute Ca re Surgeryon 10-07-2022 Daily Progress Note-Acute Care Surgery Service: Acute Care Surgery Subjective Data: GOPAL IRVING is a 71 year old Male who is Hospital Day # 3. Additional Information: Comfortable Tolerating diet Notes mild epigastric and right upper quadrant pain Denies fever, chills Objective Data: Objective Information: T PRBPMAPSpO2 [id number]/039454% Date/Time10/07 4: 4: 4: 4: 0:003 4:00 Range(35.8C - 36.7C ) (54 - 64 ) ( - ) (104 - 165 )/ (52 - 83 ) (77 - 120 ) (95% - 98% ) Pain reported at 10/06 21:00: 0 = None T PRBPMAPSpO2 Value35.10726027/199055% Date/Time10/07 4: 4: 4: 4: 0:003 4:00 Range(35.8C - 36.7C ) (54 - 64 ) ( - ) (104 - 165 )/ (52 - [...] Last Updated: 07-Oct-2022 07:38 by Franky Mattson) [facility] Daily Progress Note-Medicine on 10-07-2022 Daily Progress Note-Medicine Service: Medicine Subjective Data: GOPAL IRVING is a 71 year old Male who is Hospital Day # 3. Seen and examined, laying comfortably, admits to ongoing RUQ pain. Able to tolerate diet and is passing gas. Refuses home PT / SNF placement. Objective Data: Objective Information: T PRBPMAPSpO2 Value36.18900541/413144% Date/Time10/07 8: 8: 8: 8: 0: 8:00 Range(35.8C - 36.7C ) (54 - [...] the resident/fe (more content not included)... Normal [facility] Electrocardiogram 12 Leadon 10-07-2022 Electrocardiogram 12 Lead Ventricular Rate 86 Atrial Rate 86 P-R Interval 148 QRS Duration 102 Q-T Interval 386 QTC Calculation(Bazett) 461 P Harper 70 R Harper -10 T Harper -32 QRS Count 14 Q Onset 222 [...] Owens ([id number]) on 10/12/2022 10:19:41 AM Normal [facility] GLUCOSE-POCTon 10-07-2022 Glucose [Mass/Vol] 156 mg/dL High 74 - 99 [facility] Comment on above: Performed By: #### T [facility] #### [address] [address] Glucose [Mass/Vol] 165 mg/dL High 74 - 99 [facility] Comment on above: Performed By: #### C BC #### [address] [address] Glucose [Mass/Vol] 107 mg/dL High 74 - 99 [facility] Comment on above: Performed By: #### G AIXA ####[address] [address] Glucose [Mass/Vol] 152 mg/dL High 74 - 99 [facility] Comment on above: Performed By: #### T [facility] #### [address] [address] Glucose [Mass/Vol] 95 mg/dL Normal 74 - 99 [facility] Comment on above: Performed By: #### G AIXA ####[address] [place] [address] Glucose [Mass/Vol] 170 mg/dL High 74 - 99 [facility] Comment on above: Performed By: #### T [facility] #### [facility] [address] [place] [address] Laboratory - Chemistry and C hemistry - challengeon 10-07-2022 Glucose [Mass/Vol] 92 mg/dL 74 - 99 [facility] Work Phone: Glucose [Mass/Vol] 156 mg/dL above high threshold 74 - 99 [facility] Work Phone: Glucose [Mass/Vol] 165 mg/dL above high threshold 74 - 99 [facility] Work Phone: Glucose [Mass/Vol] 107 mg/dL above high threshold 74 - 99 [facility] Work Phone: Glucose [Mass/Vol] 152 mg/dL above high threshold 74 - 99 [facility] Work Phone: Glucose [Mass/Vol] 95 mg/dL 74 - 99 [facility] Work Phone: Laboratory - Hematology and Cell countson 10-07-2022 Erythrocyte distribution width (RBC) [Ratio] 16.0 % above high threshold See Below [facility] Work Phone: Comment on above: Reference Range: 11. 5 - 14.5 Hematocrit (Bld) [Volume fraction] 29.9 % below low threshold See Below [facility] Work Phone: Comment on above: Reference Range: 41. 0 - 52.0 Hemoglobin (Bld) [Mass/Vol] 9.5 g/dL below low threshold See Below [facility] Work Phone: Comment on above: Reference Range: 13. 5 - 17.5 MCHC (RBC) [Mass/Vol] 31.8 g/dL below low threshold See Below [facility] Work Phone: Comment on above: Reference Range: 32. 0 - 36.0 MCV (RBC) [Entitic vol] 88 fL 80 - 100 Nash will Work Phone: Platelets (Bld) [#/Vol] 231 10*3/uL 150 - 450 [facility] Work Phone: RBC (Bld) [#/Vol] 3.38 {x10E12/L} below low threshold See Below [facility] will Work Phone: Comment on above: Reference Range: 4.5 0 - 5.90 WBC (Bld) [#/Vol] 11.6 10*3/uL above high threshold 4.4 - 11.3 [facility] Work Phone: MAGNESIUMon 10-07-2022 Magnesium [Mass/Vol] 1.96 mg/dL Normal 1.60 - 2.40 [facility] Comment on above: Performed By: #### M G ####[facility] [place] [address] Magnesium, Serumon 3 Magnesium [Mass/Vol] 1.96 mg/dL See Below JUDE will Work Phone: Comment on above: Reference Range: 1.6 0 - 2.40 No Panel Informationon 10-07 [email or web address] ?RetrieveTestByDateTime?Pa csshlNA=[id number]&Date=&Time=18%3a29%3a45% 3a00&TestType=ECG&Site=12& OutputType=PDF&Ext=PDF Nash will Work Phone: Sinus rhythm with occasional premature ventricular complexes and premature atrial complexes Marcelino will Work Phone: Abnormal -[facility] Work Phone: [phone] [facility] Work Phone: [phone] [facility] Work Phone: [phone] [facility] Work Phone: [phone] [facility] Work Phone: [phone] [facility] Work Phone: 14 1 [facility] Work Phone: -[phone] [facility] Work Phone: -10 1 [facility] Work Phone: 70 1 [facility] Work Phone: [phone] [facility] Work Phone: [phone] [facility] Work Phone: 102 1 [facility] Work Phone: 86 1 [facility] Work Phone: 0.0 {/100_WBC} 0.0 - 0.0 [facility] Work Phone: RENAL FUNCTION PANELon 10-07 Albumin [Mass/Vol] 2.7 g/dL Low 3.4 - 5.0 [facility] Comment on above: Performed By: #### R ENAL #### [facility] [address] [place] [address] Anion gap [Moles/Vol] 11 mmol/L Normal 10 - 20 [facility] Comment on above: Performed By: #### R ENAL #### [address] [address] Calcium [Mass/Vol] 8.6 mg/dL Normal 8.6 - 10.3 [facility] Comment on above: Performed By: #### R ENAL #### [address] [place] [address] Chloride [Moles/Vol] 110 mmol/L High 98 - 107 [facility] Comment on above: Performed By: #### R ENAL #### [address] [place] [address] Creatinine [Mass/Vol] 1.03 mg/dL Normal 0.50 - 1.30 [facility] Comment on above: Performed By: #### R ENAL #### [address] [place] [address] GFR/1.73 sq M.predicted among non-blacks MDRD (S/P/Bld) [Vol rate/Area] 77 mL/min/{1.73_m2} Normal >90 [facility] Comment on above: Result Comment: CALC ULATIONS OF ESTIMATED GFR ARE PERFORMED USING THE 2020 CKD-EPI STUDY REFIT EQUATION WITHOUT THE RACE VARIABLE FOR THE IDMS-TRACEABLE CREATININE METHODS. https://jasn.asnjournals.org/content/early//ASN.03148 [address] Performed By: #### R ENAL #### [address] [place] [address] Glucose [Mass/Vol] 96 mg/dL Normal 74 - 99 [facility] Comment on above: Performed By: #### R ENAL #### [address] [place] [address] HCO3 (Bld) [Moles/Vol] 25 mmol/L Normal 21 - 32 [facility] Comment on above: Performed By: #### R ENAL #### [address] [place] [address] Phosphate [Mass/Vol] 2.0 mg/dL Low 2.5 - 4.9 [facility] Comment on above: Result Comment: The performance characteristics of phosphorus testing in heparinized plasma have been validated by the individual laboratory site where testing is performed. Testing on heparinized plasma is not approved by the FDA; however, such approval is not necessary. Performed By: #### R ENAL #### [facility] [address] [facility] [place] [address] Potassium [Moles/Vol] 3.4 mmol/L Low 3.5 - 5.3 [facility] Comment on above: Performed By: #### R ENAL #### [address] [place] [address] Sodium [Moles/Vol] 143 mmol/L Normal 136 - 145 [facility] Comment on above: Performed By: #### R ENAL #### [address] [place] [address] Urea nitrogen [Mass/Vol] 17 mg/dL Normal 6 - 23 [facility] Comment on above: Performed By: #### R ENAL #### [address] [place] [address] Renal Function Panelon 10-07 Albumin BCP dye [Mass/Vol] 2.7 g/dL below low threshold 3.4 - 5.0 [facility]Camila nicolette Work Phone: Anion gap [Moles/Vol] 11 mmol/L 10 - 20 [facility] nico[facility] Work Phone: Calcium [Mass/Vol] 8.6 mg/dL 8.6 - 10.3 [facility] Work Phone: Chloride [Moles/Vol] 110 mmol/L above high threshold 98 - 107 [facility] nico[facility] Work Phone: CO2 [Moles/Vol] 25 mmol/L 21 - 32 [facility] nico[facility] Work Phone: Creatinine [Mass/Vol] 1.03 mg/dL See Below [facility] nico[facility] Work Phone: Comment on above: Reference Range: 0.5 0 - 1.30 Glucose [Mass/Vol] 96 mg/dL 74 - 99 [facility] Work Phone: Phosphate [Mass/Vol] 2.0 mg/dL below low threshold 2.5 - 4.9 -[facility] nico[facility] Work Phone: Comment on above: The performance lena acteristics of phosphorus testing in heparinized plasma have been validated by the individual laboratory site where testing is performed. Testing on heparinized plasma is not approved by the FDA; however, such approval is not necessary. Potassium [Moles/Vol] 3.4 mmol/L below low threshold 3.5 - 5.3 [facility] n[facility] Work Phone: Sodium [Moles/Vol] 143 mmol/L 136 - 145 [facility] Work Phone: Urea nitrogen [Mass/Vol] 17 mg/dL 6 - 23 [facility] nico[facility] Work Phone: Renal Function Panel 77 {mL/min/1.73m2} >90 -[facility]-Camila nicolette Work Phone: Comment on above: CALCULATIONS OF BEV MATED GFR ARE PERFORMED USING THE 2020 CKD-EPI STUDY REFIT EQUATION WITHOUT THE RACE VARIABLE FOR THE IDMS-TRACEABLE CREATININE METHODS.https://jasn.asnjournals.org/content/early/A SN.8853017484 UA MICROSCOPICon 10-07-2022 RBC 0-5 Normal 0-5 [facility] Comment on above: Performed By: #### C BC #### [address] [address] WBC 0-5 Normal 0-5 [facility] Comment on above: Performed By: #### C BC #### [address] [address] URINALYSIS WITH CULTURE IF I NDICATEDon 10-07-2022 Appearance (U) CLEAR Normal CLEAR [facility] Comment on above: Performed By: #### M G #### [address] [address] Bilirubin Ql (U) Negative Normal NEGATIVE [facility] Comment on above: Performed By: #### M G #### [address] [place] [address] Color (U) YELLOW Normal STRAW,YELL OW [facility] Comment on above: Performed By: #### M G #### [address] [place] [address] Glucose Ql (U) Negative Normal NEGATIVE [facility] Comment on above: Performed By: #### M G #### [address] [place] [address] Hemoglobin Ql (U) SMALL(1+) Abnormal NEGATIVE [facility] Comment on above: Performed By: #### M G #### [address] [address] Ketones Ql (U) Negative Normal NEGATIVE [facility] Comment on above: Performed By: #### M G #### [address] [address] Leukocyte esterase Test strip Ql (U) Negative Normal NEGATIVE [facility] Comment on above: Performed By: #### M G #### [address] [address] Nitrite Ql (U) Negative Normal NEGATIVE [facility] Comment on above: Performed By: #### M G #### [address] [address] pH (U) 6.0 [pH] Normal 5.0 - 8.0 [facility] Comment on above: Performed By: #### M G #### [address] [address] Protein Ql (U) 30(1+) Abnormal NEGATIVE [facility] Comment on above: Performed By: #### M G #### [address] [address] Specific gravity (U) [Rel density] 1.014 Normal 1.005 - 1.035 [facility] Comment on above: Performed By: #### M G #### [address] [address] Urobilinogen (U) [Mass/Vol] 4.0 mg/dL High 0.0 - 1.9 [facility] Comment on above: Result Comment: SOME PIGMENTS AND MEDICATIONS MAY CAUSE A FALSE POSITIVE UROBILINOGEN Performed By: #### M G #### [facility] [address] [place] [address] Color (U) YELLOW See Below [facility]Cam[facility] nicolette Work Phone: Comment on above: Reference Range: STR AW,YELLOW Glucose Ql (U) Negative NEGATIVE [facility] nico[facility] Work Phone: Ketones Ql (U) Negative NEGATIVE [facility] Work Phone: Leukocyte esterase Test strip Ql (U) Negative NEGATIVE [facility] Work Phone: pH (U) 6.0 [pH] 5.0 - 8.0 [facility] Work Phone: Protein (U) [Mass/Vol] 30(1+) Abnormal NEGATIVE [facility] Work Phone: RBC (U) [#/Vol] SMALL(1+) Abnormal NEGATIVE [facility] Work Phone: Specific gravity (U) [Rel density] 1.014 1 See Below [facility] Work Phone: Comment on above: Reference Range: 1.0 05 - 1.035 URINALYSIS WITH CULTURE IF INDICATED Negative NEGATIVE [facility] Work Phone: URINALYSIS WITH CULTURE IF INDICATED 4.0 mg/dL above high threshold 0.0 - 1.9 [facility] Work Phone: Comment on above: SOME PIGMENTS AND ME DICATIONS MAY CAUSE AFALSE POSITIVE UROBILINOGEN URINALYSIS WITH CULTURE IF INDICATED CLEAR CLEAR [facility] Work Phone: Urinalysis, Microscopicon Urinalysis, Microscopic 0-5 0-5 [facility]ico[facility] Work Phone: CBCon 10-06-2022 Erythrocyte distribution width (RBC) [Ratio] 15.7 % High 11.5 - 14.5 [facility] Comment on above: Performed By: #### C BC #### [address] [address] Hematocrit (Bld) [Volume fraction] 33.4 % Low 41.0 - 52.0 [facility] Comment on above: Performed By: #### C BC #### [address] [address] Hemoglobin (Bld) [Mass/Vol] 10.4 g/dL Low 13.5 - 17.5 [facility] Comment on above: Performed By: #### C BC #### [address] [address] MCHC (RBC) [Mass/Vol] 31.1 g/dL Low 32.0 - 36.0 [facility] Comment on above: Performed By: #### C BC #### [address] [address] MCV (RBC) [Entitic vol] 90 fL Normal 80 - 100 [facility] Comment on above: Performed By: #### C BC #### [address] [address] NUCLEATED RBC 0.0 /100 WBC Normal 0.0 - 0.0 [facility] Comment on above: Performed By: #### C BC #### [address] [address] Platelets (Bld) [#/Vol] 209 10*3/uL Normal 150 - 450 [facility] Comment on above: Performed By: #### C BC #### [address] [address] RBC 3.73 x10E12/L Low 4.50 - 5.90 [facility] Comment on above: Performed By: #### C BC #### [address] [address] WBC (Bld) [#/Vol] 15.5 10*3/uL High 4.4 - 11.3 [facility] Comment on above: Performed By: #### C BC #### [address] [address] COMPREHENSIVE PANELon 2022 Albumin [Mass/Vol] 2.8 g/dL Low 3.4 - 5.0 [facility] Comment on above: Performed By: #### T RPHS #### [address] [address] ALP [Catalytic activity/Vol] 246 U/L High 33 - 136 [facility] Comment on above: Performed By: #### T RPHS #### [address] [address] ALT [Catalytic activity/Vol] 76 U/L High 10 - 52 [facility] Comment on above: Result Comment: Radha ents treated with Sulfasalazine may generate falsely decreased results for ALT. Performed By: #### T RPHS #### [address] [address] Anion gap [Moles/Vol] 10 mmol/L Normal 10 - 20 [facility] Comment on above: Performed By: #### T RPHS #### [address] [address] AST [Catalytic activity/Vol] 60 U/L High 9 - 39 [facility] Comment on above: Performed By: #### T RPHS #### [address] [address] Bilirubin [Mass/Vol] 0.9 mg/dL Normal 0.0 - 1.2 [facility] Comment on above: Performed By: #### T RPHS #### [address] [address] Calcium [Mass/Vol] 9.1 mg/dL Normal 8.6 - 10.3 [facility] Comment on above: Performed By: #### T RPHS #### [address] [address] Chloride [Moles/Vol] 110 mmol/L High 98 - 107 [facility] Comment on above: Performed By: #### T RPHS #### [address] [address] Creatinine [Mass/Vol] 1.06 mg/dL Normal 0.50 - 1.30 [facility] Comment on above: Performed By: #### T RPHS #### [address] [address] GFR/1.73 sq M.predicted among non-blacks MDRD (S/P/Bld) [Vol rate/Area] 75 mL/min/{1.73_m2} Normal >90 [facility] Comment on above: Result Comment: CALC ULATIONS OF ESTIMATED GFR ARE PERFORMED USING THE 2020 CKD-EPI STUDY REFIT EQUATION WITHOUT THE RACE VARIABLE FOR THE IDMS-TRACEABLE CREATININE METHODS. https://jasn.asnjournals.org/content//ASN.91959 510[address] Performed By: #### T RPHS #### [address] [address] Glucose [Mass/Vol] 113 mg/dL High 74 - 99 [facility] Comment on above: Performed By: #### T RPHS #### [address] [address] HCO3 (Bld) [Moles/Vol] 27 mmol/L Normal 21 - 32 [facility] Comment on above: Performed By: #### T RPHS #### [address] [address] Potassium [Moles/Vol] 4.3 mmol/L Normal 3.5 - 5.3 [facility] Comment on above: Performed By: #### T RPHS #### [address] [address] Protein [Mass/Vol] 5.6 g/dL Low 6.4 - 8.2 [facility] Comment on above: Performed By: #### T RPHS #### [address] [address] Sodium [Moles/Vol] 143 mmol/L Normal 136 - 145 [facility] Comment on above: Performed By: #### T RP #### [facility] [address] [place] [address] Urea nitrogen [Mass/Vol] 17 mg/dL Normal 6 - 23 [facility] Comment on above: Performed By: #### T [facility] #### [facility] [address] [place] [address] Clinical Event Note-Transfer of careon 10-06-2022 Clinical [...] therapy. He states he is opposed to nursing home facility or acute rehab placement and has [...] Last Updated: 07-Oct-2022 13:59 by Bethany Kelly) Normal [facility] Consult-Interventional Radio logy/Radiologyon 10-06-2022 Consult-Interventional Radiology/Radiology Service: Service: Interventional Radiology/Radiology History of Present Illness: HPI: GOPAL IRVING is a 71 year old Male with past medical history of pancreatic mass, initially presented o [facility] for RUQ abdominal pain ongoing for several weeks. Recent CT abdomen in [facility] concerning for new pancreatic mass. Also complaining [...] Known Allergies: Objective: Objective Information: T PRBPMAPSpO2 [id number]/1293228% Date/Time10/06 12: 13: 13: 13: 13: 13:00 [...] chronic f (more content not included)... Normal [facility] Daily Progress Note - Critic al Care-MICUon [...] team. Objective Data: Objective Information T PRBPMAPSpO2 [id number]/[id number]% Date/Time10/06 8: 13: 13: 13: 13: 13:00 Range(36C - 36.9C ) (54 - 80 ) (10 - 22 ) (62 - 189 )/ (48 - 91 ) (79 - 130 ) (95% - 99% ) Highest temp of 36.9 C was recorded at 10/05 10:01 Pain reported at 10/06 9:30: 2 = Mild ---- Intake and Output ----- [facility] Oct 06, 2022 6:00 [id number] Oct 05, 2022 10:00 [id number] The Intake and Output Totals for the last 24 hours are: [id number] Date: Weight/Scale Type: 05-Oct-2022 16:5158 kg / [...] CTA Chest (more content not included)... Normal [facility] Daily Progress Note-Acute Ca re Surgeryon 10-06-2022 [...] chills Objective Data: Objective Information: T PRBPMAPSpO2 [id number]/636869% Date/Time10/06 8: 11: 11: 11: 11: 11:00 Range(36C - 36.9C ) (54 - 80 ) (10 - 22 ) (62 - 189 )/ (48 - 91 ) (80 - 130 ) (95% - 99% ) Highest temp of 36.9 C was recorded at 10/05 10:01 Pain reported at 10/06 9:30: 2 = Mild ---- Intake and Output ----- Mn/Dy/Year TimeInt[facility]OutputCritical [facility] Oct 06, 2022 6:00 [id number] Oct 05, 2022 10:00 [id number] The Intake and Output Totals for the last 24 hours are: IntakeOutputNet [id number] T PRBPMAPSpO2 [id number]/683599% Date/Time10/06 8: 11: 11: 11: 11: 11:00 Range(36C - 36.9C ) (54 - 80 ) (10 - 22 ) (62 - 189 )/ (48 - 91 ) (80 - 130 ) (95% - 99% ) Highest temp of 36.9 C was recorded at 3/20 10:01 ---- Intake and Output ----- Mn/Dy/[facility]IntakeGr[facility] Oct 06, 2022 6:00 [id number] Oct 05, 2022 10:00 [id number] The Intake and Output Totals for the last 24 hours are: [facility] [id number] Physical Exam by System: Constitutional: Well developed, [...] stent felipa (more content not included)... Normal [facility] Daily Progress Note-Gastrosukhwinder guanologyon 10-06-2022 Daily Progress Note-Gastroenterology Service: Gastroenterology Subjective [...] monitor. Objective Data: Objective Information: T PRBPMAPSpO2 [id number]/193673% Date/Time10/06 8: 11: 11: 11: 11: 11:00 Range(36C - 36.9C ) (54 - 80 ) (10 - 22 ) (62 - 189 )/ (48 - 91 ) (80 - 130 ) (95% - 99% ) Highest temp of 36.9 C was recorded at 10/05 10:01 Pain reported at 10/06 9:30: 2 = Mild ---- Intake and Output ----- Mn/Dy/Year TimeIntakeGr[facility] Oct 06, 2022 6:00 [id number] Oct 05, 2022 10:00 [id number] The Intake and Output Totals for the last 24 hours are: IntakeOutputNet [id number] Weights 10/05 16:51: Weight in kg (Weight [...] 15.7 H Comprehensive Metabolic Panel Trending View [id number]-Mwl-6238 04:13:00 05-Oct-2022 10:14:00 Glucose, Qxhrg210 H 168 H NA143 138 K4.3 4.2 CL110 H 104 Bicarbonate, Serum27 23 Anion Gap, Serum10 15 BUN17 15 CREAT1.06 1.27 GFR Male75 60 Calcium, Serum9.1 9.9 ALB2.8 L 3.7 KDIM099 H 337 H T Pro5.6 L 7.2 T Bili0.9 2.1 H Alanine Aminotransferase, Serum76 H 65 H Aspartate Transaminase, Serum60 H 116 H Magnesium, Serum Trending View Triypv17-Bwr-1654 04:13:00 05-Oct-2022 10:14:00 Magnesium, Serum1.39 L 1.44 L Lactate, Level Trending View Sogznb25-Tsf-6327 17:50:00 05-Oct-2022 10:14:00 Lactate, Level0.8 2.5 H Troponin I, High Sensitivity Trending View Cydemf43-Mhs-5587 13:18:00 05-Oct-2022 12:10:00 05-Oct-2022 10:14:00 Troponin I, High Humuikaqffx41 H 33 H 43 H Culture, Blood Trending View Odfbxo65-Mzj-7216 12:45:00 05-Oct-2022 12:43:00 Culture, BloodNEGATIVE TO DATE, [...] the ad (more content not included)... Normal [facility] Discharge Planning Exou0yh 0 - Discharge Planning Note2 Discharge Planning: [facility] Home Health Consultedno [place] of Choice Explainedyes Anticipated Discharge [id number]-Baw-5736 Discharge Planning 10-06-22 10:21am Social Work Note: Consult received for Advance Directives. [facility] notified of consult, since their department completes Advance Directives at [facility]. SW to sign off. TCC can reconsult SW as needed. Mecca Butt [facility] TCC NOTE Call made to patients room d/t remote coverage. Patient alert and oriented x3. Also spoke with daughter at [facility]. Living/Resides: resides with. 2 daughters close by [...] wanting to go home soon. Additionally: Declined [facility] needs Foil Spinner will continue to follow patient during course of hospital stay. Bettina Ren RN- Transitional [facility] Sp[facility] 10/07/22 0830 TC Note: Patient continues to decline home care referral. Dr. Kelly would like him to reconsider and have PT/ot work with him today. He declined to work with therapy today. TC team will continue to monitor progression and potential discharge needs. Shant Figueroa RNchief technology officer Coordinator 10/08/22 1030 TC Note: Patient agreed to home health care on physian's rounds this am, but when I went to choice him and set it up , he is refusing. Assessment: Discharge Planning Assessment [id number] Discharge Planning Assessment Completed byBettina Ren RN- Transitional [facility] Spinner Primary Contact Name and NumberMarnie Irving Prior Level of FunctioningPatient gets assistance from with ADLs and daughters for IADLs Lives Withspouse(1) Living Arrangementsmobile home(1) Stated Reason for AdmissionBelly pain(1) [place] ([place]) PCPMarc [facility]yr [facility] Falls/ Injury/ Need Assist with AmbulationNo falls per patient/ Independent with ambulation with walker/cane Equipment Currently Used at [facility]; cane, quad/straight Resource/Environmental Concernsnone(1) Anticipated Transition [place](1) Services Anticipated at [facility] telecommunications project manager; nursing home(1) Transportation Home Who/HowFamily will drive home Medication Adherence/Afford/Obtainyes ; Daughter manages his meds O2 LPMNone Discharge Documentation: Discharge/Transfer Date/[id number]-Fnw-5647 Discharged Accompanied Byfamily member Transportation Methodprivate car Discharge Modewheelchair Code StatusCode Status order at time of discharge: Full Code Discharge Order Writtenyes [place] DNR Form Sent with Patient and/or Familyn/a Final Disposition.Home Electronic Signatures: Bettina Ren (CLIN COOR) (Signed 06-Oct-2022 13:33) Authored: Discharge Planning, Assessment Mecca Butt (COAL DELIVERER) (Signed 06-Oct-2022 10:21) Authored: Discharge Planning, Assessment Shant Figueroa (RN) (Signed 08-Oct-2022 10:35) Authored: Discharge Planning, Discharge Documentation Sariah Vo (RN) (Signed 08-Oct-2022 16:16) Authored: Discharge Planning, Discharge Documentation Last Updated: 08-Oct-2022 16:16 by Sariah Vo (RN) References: 1. Data Referenced From Patient Profile - Adult v2 05-Oct-2022 16:51 Normal [facility] GLUCOSE-POCTon 10-06-2022 Glucose [Mass/Vol] 159 mg/dL High 74 - 99 [facility] Comment on above: Performed By: #### G AIXA ####[facility] [place] [address] Glucose [Mass/Vol] 251 mg/dL High 74 - 99 [facility] Comment on above: Performed By: #### T RPHS #### [facility] [address] [place] [address] Glucose [Mass/Vol] 106 mg/dL High 74 - 99 [facility] Comment on above: Performed By: #### G AIXA ####[facility] [place] [address] Glucose [Mass/Vol] 103 mg/dL High 74 - 99 [facility] Comment on above: Performed By: #### M G #### [facility] [address] [facility] [place] [address] Glucose [Mass/Vol] 108 mg/dL High 74 - 99 [facility] Comment on above: Performed By: #### M G #### [facility] [id number] [place] [address]. [place] [address] Laboratory - Chemistry and C hemistry - challengeon 10-06-2022 Glucose [Mass/Vol] 170 mg/dL above high threshold 74 - 99 [facility]ila nico[facility] Work Phone: Glucose [Mass/Vol] 159 mg/dL above high threshold 74 - 99 [facility] Work Phone: Glucose [Mass/Vol] 251 mg/dL above high threshold 74 - 99 [facility] Work Phone: Glucose [Mass/Vol] 106 mg/dL above high threshold 74 - 99 [facility] Work Phone: Glucose [Mass/Vol] 103 mg/dL above high threshold 74 - 99 [facility] Work Phone: Albumin BCP dye [Mass/Vol] 2.8 g/dL below low threshold 3.4 - 5.0 [facility] Work Phone: ALP [Catalytic activity/Vol] 246 U/L above high threshold 33 - 136 [facility] Work Phone: ALT With P-5'-P [Catalytic activity/Vol] 76 U/L above high threshold 10 - 52 [facility]ila nicolette Work Phone: Comment on above: Patients treated wit h Sulfasalazine may generate falsely decreased results for ALT. Anion gap [Moles/Vol] 10 mmol/L 10 - 20 [facility]ila nicolette Work Phone: AST With P-5'-P [Catalytic activity/Vol] 60 U/L above high threshold 9 - 39 [facility] nicolette Work Phone: Bilirubin [Mass/Vol] 0.9 mg/dL 0.0 - 1.2 [facility]Camila nicolette Work Phone: Calcium [Mass/Vol] 9.1 mg/dL 8.6 - 10.3 [facility] n[facility]ila [facility]icolette Work Phone: Chloride [Moles/Vol] 110 mmol/L above high threshold 98 - 107 [facility] nicolette Work Phone: CO2 [Moles/Vol] 27 mmol/L 21 - 32 [facility] nicolette Work Phone: Creatinine [Mass/Vol] 1.06 mg/dL See Below MP- [facility]ila nicolette Work Phone: Comment on above: Reference Range: 0.5 0 - 1.30 Glucose [Mass/Vol] 113 mg/dL above high threshold 74 - 99 [facility] nicolette Work Phone: Potassium [Moles/Vol] 4.3 mmol/L 3.5 - 5.3 [facility] Work Phone: Protein [Mass/Vol] 5.6 g/dL below low threshold 6.4 - 8.2 [facility] Work Phone: Sodium [Moles/Vol] 143 mmol/L 136 - 145 [facility]ila [facility]lette Work Phone: Urea nitrogen [Mass/Vol] 17 mg/dL 6 - 23 [facility]lette Work Phone: Laboratory - Hematology and Cell countson 10-06-2022 Erythrocyte distribution width (RBC) [Ratio] 15.7 % above high threshold See Below [facility] nicolette Work Phone: Comment on above: Reference Range: 11. 5 - 14.5 Hematocrit (Bld) [Volume fraction] 33.4 % below low threshold See Below [facility]ila nicolette Work Phone: Comment on above: Reference Range: 41. 0 - 52.0 Hemoglobin (Bld) [Mass/Vol] 10.4 g/dL below low threshold See Below -Nandini Atkinson-Camila nicolette Work Phone: Comment on above: Reference Range: 13. 5 - 17.5 MCHC (RBC) [Mass/Vol] 31.1 g/dL below low threshold See Below -[facility]Camila nicolette Work Phone: Comment on above: Reference Range: 32. 0 - 36.0 MCV (RBC) [Entitic vol] 90 fL 80 - 100 -Nandini Atkinson-Camila nicolette Work Phone: Platelets (Bld) [#/Vol] 209 10*3/uL 150 - 450 -Nandini Atkinson-Camila nicolette Work Phone: RBC (Bld) [#/Vol] 3.73 {x10E12/L} below low threshold See Below -Nandini Atkinson-Camila nicolette Work Phone: Comment on above: Reference Range: 4.5 0 - 5.90 WBC (Bld) [#/Vol] 15.5 10*3/uL above high threshold 4.4 - 11.3 -Nandini Atkinson-Camila will Work Phone: MAGNESIUMon 10-06-2022 Magnesium [Mass/Vol] 1.39 mg/dL Low 1.60 - 2.40 [facility] Comment on above: Performed By: #### M G ####[facility] [place] [address] Magnesium, Serumon 3 Magnesium [Mass/Vol] 1.39 mg/dL below low threshold See Below -Nandini Atkinson-Camila nicolette Work Phone: Comment on above: Reference Range: 1.6 0 - 2.40 No Panel Informationon 10-06 75 {mL/min/1.73m2} >90 [facility]-Camila nico[facility]-Camila nicolette Work Phone: Comment on above: CALCULATIONS OF BEV MATED GFR ARE PERFORMED USING THE 2020 CKD-EPI STUDY REFIT EQUATION WITHOUT THE RACE VARIABLE FOR THE IDMS-TRACEABLE CREATININE METHODS.https://jasn.asnjournals.org/content/early//A SN.3509921288 0.0 {/100_WBC} 0.0 - 0.0 [facility]-Nandini Atkinson-Camiladavid will Work Phone: Nutrition Therapy-Assessment on 10-06-2022 Nutrition Therapy-Assessment Assessment Subjective/Objective: Note Type: Assessment Note Authored by: Registered Dietitian Straight Cutter Machine Pager Number: doc halo Nutrition Note: Nutrition [...] AAA repair 07/2021. Objective Information: T PRBPMAPSpO2 Value36.09462718/3261931% Date/Time10/06 12: 13: 13: 13: 13: 13:00 [...] ----- Mn/Dy/Year TimeIntakeOutputNet Oct 06, 2022 2:00 [id number] Oct 06, 2022 6:00 [id number] Oct 05, 2022 10:00 [id number] The Intake and Output Totals for the last 24 hours are: IntakeOutputNet [id number] Height/Weight: Height in feet: 5 feet Height [...] reviewed these laboratory results: Glucose_POCT Trending View [id number]-Ozk-2933 11:42:00 06-Oct-2022 08:03:00 06-Oct-2022 04:39:00 05-Oct-2022 23:35:00 Glucose-HFMM930 H 106 H 103 H 108 H [...] is greater than 400 Notes from Pharmacy: [facility], 05-Oct-2022 Dextrose 50% in Water Injectable, DOSE = 25 gram(s) IntraVenous Push Every 15 Minutes, PRN Blood Glucose 70 mg/dL or LESS & HAS IV access services assistant Notes: IF patient HAS a secure IV access & is Unconscious, Conscious, NPO or Unable to Eat or Drink. Repeat until BG reaches 100 mg/dL or greater. Push 2-3 mL/minute. Discontinue once BG reaches 100 mg/dL or greater., 05-Oct-2022 Glucagon Injectable, DOSE = 1 mg IntraMuscular Every 15 Minutes, PRN Blood Glucose 70 mg/dL or LESS & NO IV access services assistant Notes: IF patient DOES NOT have secure [...] Daily, 06-Oct-2022 (more content not included)... Normal [facility] Admission Risk Screen - Adul ton 10-05-2022 [...] AlertFor Ebola-like Symptoms: Isolate Patient and Notify Provider/Classifying Machine Operator For Contact: Notify Provider/Classifying Machine Operator Advance Directive: Advance Directive/DNRno (2) Advance Directive Information Giveninformation requested from Social Work Angelika Fall Screen: History of falling (immediate or [...] Learning Preferencesverbal instruction Cultural Considerationsnone Developmental Considerationsnone Baptist Considerationsnone Learning Assessment (Other Learner): Other learner availableyes... Learnerfamily Factors Influencing Readiness to Learnacuteness of illness Factors that Impact Ability to Learnnone Devices/Methods Used to Communicatenone Learning Preferencesverbal instruction Cultural Considerationsnone Developmental Considerationsnone Baptist Considerationsnone Depression Screen: During the past month, have you often been bothered by feeling down, depressed or hopelessno During the past month, have you often had little interest or pleasure in doing thingsno Have you had any thoughts of harming anyone elseno (1) [place] Suicide: Risk Screen Not Applicable/Able to Answerable to be screened In the Past Month: Have you wished you were or could go to sleep and not wake upno(1) In the Past Month: Have you had any actual thoughts of killing yourself no(1) Lifetime: Have you ever done, started to do, or prepared to do anything to end your lifeno [place] Suicide Risknegative Adult Nutrition Screen: Have you [...] any cultural (more content not included)... Normal [facility] BLOOD CULTURE, BACTERIALon 0 10-05-2022 BLOOD CULTURE, BACTERIAL PATIENT: GOPAL IRVING LOCATION: [id number] BILL#: [id number] : 50 AGE: SEX: M ORDERED BY: NOLBERTO MATTHEW SOURCE: Blood COLLECTED: 10/05/22 12:45 ANTIBIOTICS AT [facility].: RECEIVED : 10/05/22 19:29 SITE: PERIPHERAL R E S U L T S BLOOD CULTURE, BACTERIAL FINAL 10/09/22 19:42 No Growth at 1 days No Growth at 2 days No Growth at 3 days NO GROWTH at 4 days - FINAL REPORT Normal [facility] Comment on above: Performed By: #### T RP #### [address] [address] BLOOD CULTURE, BACTERIAL PATIENT: GOPAL IRVING LOCATION: CHRISTEL GRACE#: [id number] : 50 AGE: SEX: M ORDERED BY: NOLBERTO MATTHEW SOURCE: Blood COLLECTED: 10/05/22 12:43 ANTIBIOTICS AT [facility].: RECEIVED : 10/05/22 19:27 SITE: PERIPHERAL R E S U L T S BLOOD CULTURE, BACTERIAL FINAL 10/09/22 19:42 No Growth at 1 days No Growth at 2 days No Growth at 3 days NO GROWTH at 4 days - FINAL REPORT Normal [facility] Comment on above: Performed By: #### T RP #### [address] [address] CBC AND DIFFERENTIALon 10-05 % AUTOMATED IMMATURE GRAN 0.6 % Normal 0.0 - 0.9 [facility] Comment on above: Result Comment: Lisa ture Granulocyte Count (IG) includes promyelocytes, myelocytes and metamyelocytes but does not include bands. Percent differential counts (%) should be interpreted in the context of the absolute cell counts (cells/L). Performed By: #### C BC #### [address] [address] Basophils (Bld) [#/Vol] 0.07 10*3/uL Normal 0.00 - 0.10 [facility] Comment on above: Performed By: #### C BC #### [address] [place] [address] Basophils/100 WBC (Bld) 0.3 % Normal 0.0 - 2.0 [facility] Comment on above: Performed By: #### C BC #### [address] [address] Eosinophils (Bld) [#/Vol] 0.01 10*3/uL Normal 0.00 - 0.40 [facility] Comment on above: Performed By: #### C BC #### [address] [address] Eosinophils/100 WBC (Bld) 0.0 % Normal 0.0 - 6.0 [facility] Comment on above: Performed By: #### C BC #### [address] [address] Erythrocyte distribution width (RBC) [Ratio] 15.9 % High 11.5 - 14.5 [facility] Comment on above: Performed By: #### C BC #### [address] [address] Hematocrit (Bld) [Volume fraction] 42.3 % Normal 41.0 - 52.0 [facility] Comment on above: Performed By: #### C BC #### [address] [address] Hemoglobin (Bld) [Mass/Vol] 13.5 g/dL Normal 13.5 - 17.5 [facility] Comment on above: Performed By: #### C BC #### [address] [address] Lymphocytes (Bld) [#/Vol] 1.33 10*3/uL Normal 0.80 - 3.00 [facility] Comment on above: Performed By: #### C BC #### [address] [place] [address] Lymphocytes/100 WBC (Bld) 5.7 % Normal 13.0 - 44.0 [facility] Comment on above: Performed By: #### C BC #### [address] [address] MCHC (RBC) [Mass/Vol] 31.9 g/dL Low 32.0 - 36.0 [facility] Comment on above: Performed By: #### C BC #### [address] [address] MCV (RBC) [Entitic vol] 88 fL Normal 80 - 100 [facility] Comment on above: Performed By: #### C BC #### [address] [address] Monocytes (Bld) [#/Vol] 1.25 10*3/uL High 0.05 - 0.80 [facility] Comment on above: Performed By: #### C BC #### [address] [address] Monocytes/100 WBC (Bld) 5.3 % Normal 2.0 - 10.0 [facility] Comment on above: Performed By: #### C BC #### [address] [address] Neutrophils (Bld) [#/Vol] 20.65 10*3/uL High 1.60 - 5.50 [facility] Comment on above: Performed By: #### C BC #### [address] [address] Neutrophils/100 WBC (Bld) 88.1 % Normal 40.0 - 80.0 [facility] Comment on above: Performed By: #### C BC #### [address] [address] NUCLEATED RBC 0.0 /100 WBC Normal 0.0 - 0.0 [facility] Comment on above: Performed By: #### C BC #### [address] [address] Platelets (Bld) [#/Vol] 294 10*3/uL Normal 150 - 450 [facility] Comment on above: Performed By: #### C BC #### [address] [address] RBC 4.80 x10E12/L Normal 4.50 - 5.90 [facility] Comment on above: Performed By: #### C BC #### [address] [address] WBC (Bld) [#/Vol] 23.4 10*3/uL High 4.4 - 11.3 [facility] Comment on above: Performed By: #### C BC #### [address] [address] COMPREHENSIVE PANELon 2022 Albumin [Mass/Vol] 3.7 g/dL Normal 3.4 - 5.0 [facility] Comment on above: Performed By: #### C BC #### [address] [address] ALP [Catalytic activity/Vol] 337 U/L High 33 - 136 [facility] Comment on above: Performed By: #### C BC #### [address] [address] ALT [Catalytic activity/Vol] 65 U/L High 10 - 52 [facility] Comment on above: Result Comment: Radha ents treated with Sulfasalazine may generate falsely decreased results for ALT. Performed By: #### C BC #### [address] [address] Anion gap [Moles/Vol] 15 mmol/L Normal 10 - 20 [facility] Comment on above: Performed By: #### C BC #### [address] [address] AST [Catalytic activity/Vol] 116 U/L High 9 - 39 [facility] Comment on above: Performed By: #### C BC #### [address] [address] Bilirubin [Mass/Vol] 2.1 mg/dL High 0.0 - 1.2 [facility] Comment on above: Performed By: #### C BC #### [address] [address] Calcium [Mass/Vol] 9.9 mg/dL Normal 8.6 - 10.3 [facility] Comment on above: Performed By: #### C BC #### [address] [place] [address] Chloride [Moles/Vol] 104 mmol/L Normal 98 - 107 [facility] Comment on above: Performed By: #### C BC #### [address] [place] [address] Creatinine [Mass/Vol] 1.27 mg/dL Normal 0.50 - 1.30 [facility] Comment on above: Performed By: #### C BC #### [address] [place] [address] GFR/1.73 sq M.predicted among non-blacks MDRD (S/P/Bld) [Vol rate/Area] 60 mL/min/{1.73_m2} Normal >90 [facility] Comment on above: Result Comment: CALC ULATIONS OF ESTIMATED GFR ARE PERFORMED USING THE 2020 CKD-EPI STUDY REFIT EQUATION WITHOUT THE RACE VARIABLE FOR THE IDMS-TRACEABLE CREATININE METHODS. https://jasn.asnjournals.org/content/early//ASN.08101 10283 Performed By: #### C BC #### [address] [place] [address] Glucose [Mass/Vol] 168 mg/dL High 74 - 99 [facility] Comment on above: Performed By: #### C BC #### [address] [place] [address] HCO3 (Bld) [Moles/Vol] 23 mmol/L Normal 21 - 32 [facility] Comment on above: Performed By: #### C BC #### [address] [place] [address] Potassium [Moles/Vol] 4.2 mmol/L Normal 3.5 - 5.3 [facility] Comment on above: Performed By: #### C BC #### [address] [place] [address] Protein [Mass/Vol] 7.2 g/dL Normal 6.4 - 8.2 [facility] Comment on above: Performed By: #### C BC #### [facility] [address] [place] [address] Sodium [Moles/Vol] 138 mmol/L Normal 136 - 145 [facility] Comment on above: Performed By: #### C BC #### [facility] [address] [place] [address] Urea nitrogen [Mass/Vol] 15 mg/dL Normal 6 - 23 [facility] Comment on above: Performed By: #### C BC #### [address] [place] [address] Clinical Event Note-GI UPDAT E: ERCPon 10-05-2022 [...] Last Updated: 05-Oct-2022 16:59 by Alyssia Weber) Normal [facility] Clinical Intervention - Johnnie broderick 10-05-2022 Clinical Intervention - Pharmacy Pharmacist's Clinical Intervention: Type of recommendation: Family Is this intervention medication reconciliation related: yes, History Electronic Signatures: Meera Franks ([email or web address]) (Signed 05-Oct-2022 12:10) Authored: Pharmacist's Clinical Intervention Last Updated: 05-Oct-2022 12:10 by Meera Franks (SHARKMARX) [facility] Clinical Intervention - Pharmacy Pharmacist's Clinical Intervention: Type of recommendation: Family Is this intervention medication reconciliation related: yes, Allergy Electronic Signatures: Meera Franks ([email or web address]) (Signed 05-Oct-2022 12:09) Authored: Pharmacist's Clinical Intervention Last Updated: 05-Oct-2022 12:09 by Meera Franks ([email or web address]) [facility] Complete Blood Count + Diffe lo 10-05-2022 Basophils/100 WBC (Bld) 0.3 % 0.0 - 2.0 [facility] [employer] Work Phone: Erythrocyte distribution width (RBC) [Ratio] 15.9 % above high threshold See Below [facility] Work Phone: Comment on above: Reference Range: 11. 5 - 14.5 Hematocrit (Bld) [Volume fraction] 42.3 % See Below [facility] Work Phone: Comment on above: Reference Range: 41. 0 - 52.0 Hemoglobin (Bld) [Mass/Vol] 13.5 g/dL See Below [facility] Work Phone: Comment on above: Reference Range: 13. 5 - 17.5 Lymphocytes/100 WBC (Bld) 5.7 % See Below [facility] Work Phone: Comment on above: Reference Range: 13. 0 - 44.0 MCHC (RBC) [Mass/Vol] 31.9 g/dL below low threshold See Below [facility] Work Phone: Comment on above: Reference Range: 32. 0 - 36.0 MCV (RBC) [Entitic vol] 88 fL 80 - 100 -[facility] Work Phone: Monocytes/100 WBC (Bld) 5.3 % 2.0 - 10.0 -[facility] Work Phone: Neutrophils/100 WBC (Bld) 88.1 % See Below -[facility] Work Phone: Comment on above: Reference Range: 40. 0 - 80.0 Platelets (Bld) [#/Vol] 294 10*3/uL 150 - 450 -[facility] Work Phone: RBC (Bld) [#/Vol] 4.80 {x10E12/L} See Below -[facility] Work Phone: Comment on above: Reference Range: 4.5 0 - 5.90 WBC (Bld) [#/Vol] 23.4 10*3/uL above high threshold 4.4 - 11.3 -[facility] Work Phone: Complete Blood Count + Differential 0.07 {x10E9/L} See Below [facility] Work Phone: Comment on above: Reference Range: 0.0 0 - 0.10 Complete Blood Count + Differential 0.01 {x10E9/L} See Below -[facility] Work Phone: Comment on above: Reference Range: 0.0 0 - 0.40 Complete Blood Count + Differential 1.25 {x10E9/L} above high threshold See Below -[facility] Work Phone: Comment on above: Reference Range: 0.0 5 - 0.80 Complete Blood Count + Differential 1.33 {x10E9/L} See Below -[facility] Work Phone: Comment on above: Reference Range: 0.8 0 - 3.00 Complete Blood Count + Differential 20.65 {x10E9/L} above high threshold See Below -[facility] Work Phone: Comment on above: Reference Range: 1.6 0 - 5.50 Complete Blood Count + Differential 0.0 % 0.0 - 6.0 [facility] Work Phone: Complete Blood Count + Differential 0.6 % 0.0 - 0.9 [facility] Work Phone: Comment on above: Immature Granulocyte Count (IG) includes promyelocytes, myelocytes and metamyelocytes but does not include bands. Percent differential counts (%) should be interpreted in the context of the absolute cell counts (cells/L). Complete Blood Count + Differential 0.0 {/100_WBC} 0.0 - 0.0 [facility] Work Phone: Consult-Acute Care Surgeryon 10-05-2022 [...] and NIDDM 2, HLD, who presented to [facility] with chronic abdominal pain and plans for pancreatic biopsy. He has been following with physicians at [facility] in [place] for chronic medical problems and most recently [...] codeine: Unknown Objective: Objective Information: T PRBPMAPSpO2 [id number]/5695% Date/Time10/05 10:013/20 13: 13: 13: 13:10 Range(36.9C - 36.9C [...] results: Troponin I, High Sensitivity Trending View [id number] 12:10:00 05-Oct-2022 10:14:00 Troponin I, High [id number] H 43 H Complete Blood Count + [...] following with GI and other physicians and [facility] for suspected pancreatic mass for which she initially presented to [facility] to have biopsy done today. He was [...] Assessment and plan discussed with attending physician, Be (more content not included)... Normal [facility] Consult-Gastroenterologyon 0 10-05-2022 Consult-Gastroenterolo gy Service: Service: Gastroenterology Consult: Consult requested by [...] on for months with extensive work-up at [facility]. He and his family state that symptoms have been going on for many months, beginning after his AAA repair with up to 100 pound weight loss since that time. At one point, there was concern for pancreatic mass on CT which was not demonstrated on MRCP. CA 19-[address] had been slightly elevated. CT at [facility] yesterday noted gallbladder wall thickening with pericholecystic [...] Known Allergies: Objective: Objective Information: T PRBPMAPSpO2 [id number]/5697% Date/Time10/05 10: 13: 13: 13: 13:44 Range(36.9C [...] reviewed these (more content not included)... Normal [facility] Covid 19 Resultson 3 SARS-CoV-2 (COVID-19) RNA [...] You may also be contacted by the [facility] to see if any of your close [...] or Naproxen (Aleve) can also be used. Aglc-qdv-nwgijdp cough and cold medicines can be used according to the instructions on the package. Some tggv-cux-jgkflwl medicines also contain acetaminophen. Make sure you [...] water are not available, use alcohol-based hand computer aided design technician. Avoid touching your eyes, nose, and mouth [...] 24 jolie (more content not included)... Normal [facility] Cult, Bloodon 10-05-2022 Bacteria identified Cx Nom (Bld) -[facility] Work Phone: Bacteria identified Cx Nom (Bld) [facility] Work Phone: Daily Progress Note-Acute Ca re Surgeryon 10-05-2022 Daily Progress Note-Acute Care Surgery Service: Acute Care Surgery Subjective Data: GOPAL IRVING is a 71 year old Male who is Hospital Day # 1. Objective Data: Objective Information: T PRBPMAPSpO2 [id number]/9197% Date/Time10/05 10: 14: 14: 14: 14:22 Range(36.9C [...] Last Updated: 05-Oct-2022 16:50 by Franky Mattson) [facility] ERCPon 10-05-2022 ERCP PATIENTNAME Patient Name: Gopal Irving EXAMDATE Procedure Date: 10/05/2022 3:23 PM PATIENTID PATIENTACCOUNTNUM PATIENTDOB Date of : 1950 ADMITTYPE Admit Type: Inpatient PATIENTROOM Site: [facility] Endo 1 ETHNICITY Ethnicity: Not or RACE Race: White PROVDR Attending MD: Alyssia Weber MD, [id number] ENDOPROCEDURENAME Procedure: ERCP INDICATION Indications: Abdominal pain of suspected biliary origin, Abnormal abdominal CT, Elevated liver enzymes PTPROFILE Patient Profile: This is a 71 year old male. Refer to note in patient chart for documentation of history and physical. PRIMARYPROVIDER Providers: Alyssia Weber MD (Doctor), Meredith Castellanos RN (Nurse), Sachin Pierson, Career Developer EDREFPROVIDER Referring: CURRENT_MEDS Medicines: General Anesthesia, Indomethacin 100 mg OR COMPLIC Complications: No immediate complications. ENDOPROCEDURETEXT Procedure: [...] the physician, the nurse, the anesthesiologist, the program director/air personality and the school laboratory technician in the procedure room. Mental Status [...] pancreatic duct was regular in contour. The auditor internal film was normal. Aortic stent was seen. The esophagus was successfully intubated under direct vision. The scope was advanced from the mouth to the duodenum. The pharynx, larynx and associated structures, as well as the upper GI tract (more content not included)... Normal [facility] Electrocardiogram 12 Leadon 10-05-2022 Electrocardiogram 12 Lead Ventricular Rate 73 Atrial Rate 73 P-R Interval 150 QRS Duration 94 Q-T Interval 416 QTC Calculation(Bazett) 458 P Harper 72 R Harper -11 T Harper 4 QRS Count 12 Q Onset 223 P Onset 148 P Offset 209 T Offset 431 QTC Fredericia 444 Diagnosis Class Abnormal Diagnosis Sinus rhythm with premature atrial complexes Anteroseptal infarct , age undetermined Abnormal ECG No previous ECGs available Confirmed by Franky Blackman ([id number]) on 10/06/2022 9:37:04 PM Normal [facility] GLUCOSE-POCTon 10-05-2022 Glucose [Mass/Vol] 131 mg/dL High 74 - 99 [facility] Comment on above: Performed By: #### G AIXA ####[facility] [place] [address] Glucose [Mass/Vol] 136 mg/dL High 74 - 99 [facility] Comment on above: Performed By: #### G AIXA ####[address] [place] [address] INFLUENZA A/B, COVID 2019 PC R,SYMPTOMATICon 10-05-2022 INFLUENZA A, PCR Not detected Normal Not Detected [facility] Comment on above: Result Comment: Resp iratory virus testing is performed routinely by PCR for Influenza A/B and RSV. Not Detected results do not preclude Influenza A/B or RSV infections since the adequacy of sample collection or low viral burden may impact the clinical sensitivity of this test method. Performed By: #### C OINP ####[place] [id number] INFLUENZA B, PCR Not detected Normal Not Detected [facility] Comment on above: Result Comment: Resp iratory virus testing is performed routinely by PCR for Influenza A/B and RSV. Not Detected results do not preclude Influenza A/B or RSV infections since the adequacy of sample collection or low viral burden may impact the clinical sensitivity of this test method. Performed By: #### C OINP ####[place] [address] SARS-CoV-2 (COVID-19) RNA GLORIA+probe Ql (Unsp spec) Not detected Normal Not Detected [facility] Comment on above: Result Comment: . This test has received FDA Emergency Use Authorization (EUA) and has been verified by [facility]. This test is only authorized for the duration of time that circumstances exist to justify the authorization of the emergency use of in vitro diagnostic tests for the detection of SARS-CoV-2 virus and/or diagnosis of COVID-19 infection under section 564(b)(1) of the Act, 21 U.S.C. 360bbb-3(b)(1), unless the authorization is terminated or revoked sooner. [facility] is certified under CLIA-88 as qualified to perform high complexity testing. Testing is performed in the [facility] laboratory [place] [address] [place] [address]. SARS-CoV-2/Flu/RSV Multiplex Test: Fact sheet for providers: https://www.fda.gov/media/174964/download Fact sheet for patients: https://www.fda.gov/media/717293/download Performed By: #### C OINP ####[place] [address] Lab Specimen Source Nasal, Nasopharyngeal Normal [facility] Comment on above: Performed By: #### C OINP ####[place] [address] INFLUENZA A/B, COVID 2019 PCR,SYMPTOMATIC Not detected See Below [facility] Work Phone: Comment on above: Reference Range: Not Detected.This test has received [facility] Emergency Use Authorization (EUA) and has been verified by [facility]. This test is only authorized for the duration of time that circumstances exist to justify the authorization of the emergency use of in vitro diagnostic tests for the detection of SARS-CoV-2 virus and/or diagnosis of COVID-19 infection under section 564(b)(1) of the Act, 21 U.S.C. 360bbb-3(b)(1), unless the authorization is terminated or revoked sooner. [facility] is certified under CLIA-88 as qualified to perform high complexity testing. Testing is performed in the [facility] laboratory located at [address] [place] [address].SARS-CoV-2/Flu/RSV Multiplex Test: Fact sheet for providers: https://www.fda.gov/media/152953/downloadFact sheet for patients: https://www.fda.gov/media/382554/download Reference Range: Not Detected Respiratory virus testing [...] [Moles/Vol] 0.8 mmol/L Normal 0.4 - 2.0 [facility] Comment on above: Result Comment: Gypsy puncture immediately after or during the administration of Metamizole may lead to falsely low results. Testing should be performed immediately prior to Metamizole dosing. Performed By: #### L ACT ####[place] [id number] [place] [address] Lactate [Moles/Vol] 2.5 mmol/L High 0.4 - 2.0 [facility] Comment on above: Result Comment: Gypsy puncture immediately after or during the administration of Metamizole may lead to falsely low results. Testing should be performed immediately prior to Metamizole dosing. Performed By: #### L ACT ####[place] [id number] LIPASEon 10-05-2022 Lipase [Catalytic activity/Vol] 5 U/L Low 9 - 82 [facility] Comment on above: Result Comment: Gypsy puncture immediately after or during the administration of Metamizole may lead to falsely low results. Testing should be performed immediately prior to Metamizole dosing. L-jkzmdw-z-benzoquinone imine (metabolite of Acetaminophen) will generate erroneously low results in samples for patients that have taken toxic doses of acetaminophen. Performed By: #### C BC #### [address] [address] Laboratory - Blood bankon ABO group Nom (Bld) O -[facility] Work Phone: Blood group antibody screen Ql Negative -[facility] Work Phone: Rh immune globulin screen (Bld) [Interp] Negative -[facility] Work Phone: Laboratory - Chemistry and C hemistry - challengeon 10-05-2022 Glucose [Mass/Vol] 108 mg/dL above high threshold 74 - 99 -[facility] Work Phone: Glucose [Mass/Vol] 131 mg/dL above high threshold 74 - 99 -[facility] Work Phone: Glucose [Mass/Vol] 136 mg/dL above high threshold 74 - 99 -[facility] Work Phone: Albumin BCP dye [Mass/Vol] 3.7 g/dL 3.4 - 5.0 -[facility] Work Phone: ALP [Catalytic activity/Vol] 337 U/L above high threshold 33 - 136 -[facility] Work Phone: ALT With P-5'-P [Catalytic activity/Vol] 65 U/L above high threshold 10 - 52 -[facility] Work Phone: Comment on above: Patients treated wit h Sulfasalazine may generate falsely decreased results for ALT. Anion gap [Moles/Vol] 15 mmol/L 10 - 20 - [facility] Work Phone: AST With P-5'-P [Catalytic activity/Vol] 116 U/L above high threshold 9 - 39 -[facility] Work Phone: Bilirubin [Mass/Vol] 2.1 mg/dL above high threshold 0.0 - 1.2 -[facility] Work Phone: Calcium [Mass/Vol] 9.9 mg/dL 8.6 - 10.3 -[facility] Work Phone: Chloride [Moles/Vol] 104 mmol/L 98 - 107 -[facility] nicolette Work Phone: CO2 [Moles/Vol] 23 mmol/L 21 - 32 -[facility] Work Phone: Creatinine [Mass/Vol] 1.27 mg/dL See Below - [facility] Work Phone: Comment on above: Reference Range: 0.5 0 - 1.30 Glucose [Mass/Vol] 168 mg/dL above high threshold 74 - 99 Nash At[facility]-Camila nicolette Work Phone: Potassium [Moles/Vol] 4.2 mmol/L 3.5 - 5.3 [facility]- Nandini [facility] n[facility] Work Phone: Protein [Mass/Vol] 7.2 g/dL 6.4 - 8.2 Osvaldo [facility] nicolette Work Phone: Sodium [Moles/Vol] 138 mmol/L 136 - 145 [facility] Work Phone: Urea nitrogen [Mass/Vol] 15 mg/dL 6 - 23 [facility] Work Phone: Laboratory - Coagulationon 0 10-05-2022 INR Coag (PPP) [Relative time] 1.2 {INR} above high threshold 0.9 - 1.1 Marcelino Abdalla nicolette Work Phone: PT Coag (PPP) [Time] 14.1 s above high threshold 9.8 - 13.4 Marcelino [facility] n[facility] Work Phone: Lactate, Levelon 10-05-2022 Lactate [Moles/Vol] 0.8 mmol/L 0.4 - 2.0 Catherine [facility]-Camila will Work Phone: Comment on above: Venipuncture immedia tely after or during the administration of Metamizole may lead to falsely low results. Testing should be performed immediately prior to Metamizole dosing. Lactate [Moles/Vol] 2.5 mmol/L above high threshold 0.4 - 2.0 Nash Abdalla nicolette Work Phone: Comment on above: Venipuncture immedia tely after or during the administration of Metamizole may lead to falsely low results. Testing should be performed immediately prior to Metamizole dosing. Lipase, Serumon 10-05-2022 Lipase [Catalytic activity/Vol] 5 U/L below low threshold 9 - 82 [facility] Work Phone: Comment on above: Venipuncture immedia tely after or during the administration of Metamizole may lead to falsely low results. Testing should be performed immediately prior to Metamizole dosing. I-fqdmfx-k-benzoquinone imine (metabolite of Acetaminophen) will generate erroneously low results in samples for patients that have taken toxic doses of acetaminophen. MAGNESIUMon 10-05-2022 Magnesium [Mass/Vol] 1.44 mg/dL Low 1.60 - 2.40 [facility] Comment on above: Performed By: #### M G #### [facility] [address] [place] [id number] Magnesium, Serumon 3 Magnesium [Mass/Vol] 1.44 mg/dL below low threshold See Below [facility] Work Phone: Comment on above: Reference Range: 1.6 0 - 2.40 No Panel Informationon 10-05 [email or web address]?={ [email or web address] [facility]} [facility] Work Phone: [facility] Work Phone: [email or web address] ?RetrieveTestByDateTime?Pa chregWG=[id number]&Date=&Time=11%3a56%3a30% 3a00&TestType=ECG&Site=12& OutputType=PDF&Ext=PDF [facility] Work Phone: Sinus rhythm with premature atrial complexes [facility] Work Phone: Abnormal [facility] Work Phone: [phone] [facility] Work Phone: [phone] [facility] Work Phone: [phone] [facility] Work Phone: [phone] [facility] Work Phone: [phone] [facility] Work Phone: 12 1 [facility] Work Phone: 4 1 [facility] Work Phone: -11 1 [facility] Work Phone: 72 1 [facility] Work Phone: [phone] [facility] Work Phone: [phone] [facility] Work Phone: [phone] 1 [facility] Work Phone: 150 1 [facility] Work Phone: 73 1 [facility] Work Phone: Normal [facility] Work Phone: 60 {mL/min/1.73m2} >90 MP-[facility] n[facility] Work Phone: Comment on above: CALCULATIONS OF BEV MATED GFR ARE PERFORMED USING THE 2020 CKD-EPI STUDY REFIT EQUATION WITHOUT THE RACE VARIABLE FOR THE IDMS-TRACEABLE CREATININE METHODS.https://jasn.asnjournals.org/content/22/A SN.6772550192 Order Reconciliationon 10-05 Order Reconciliation Page 1 Admission Reconciliation Document Reconciliation Type: Admission requested on behalf of Nilam Nielsen (Advanced Practice Nurse-Admit) done by Nilam Nielsen (MARINE EQUIPMENT SALES ENGINEER-SQL SSRS DEVELOPER) Admission - Reconciliation: 05-Oct-2022 14:29 by: Nilam Nielsen (MARINE EQUIPMENT SALES ENGINEER-SQL SSRS DEVELOPER) Home MedicationsEnteredLast Dose TakenReconciled with current Order Reconciliation Comment/ Additional Information Aspir 81 oral delayed release tablet 1 tab(s) orally once a [id number] UNKNOWN UNKNOWN Aspirin Enteric Coated Enteric Coated Tablet (ECOTRIN)DOSE = 81 mg Oral DailyAspir 81 oral delayed release tablet continued as the inpatient order Aspirin Enteric Coated esomeprazole 40 mg oral delayed release capsule 1 cap(s) orally 2 times a day UNKNOWN Pantoprazole Injectable (PROTONIX)DOSE = 40 mg IntraVenous Push Every 24 Hoursesomeprazole 40 mg oral delayed release capsule reconciled with the existing inpatient order Pantoprazole Injectable ferrous sulfate 325 mg (65 mg elemental iron) oral tablet 1 tab(s) orally once a [id number] UNKNOWN Ferrous Sulfate Tablet (FEOSOL)DOSE = 325 mg Oral Dailyferrous sulfate 325 mg (65 mg elemental iron) oral tablet continued as the inpatient order Ferrous Sulfate losartan 50 mg oral tablet 1 tab(s) orally once a [id number] UNKNOWN Reviewed and Held metFORMIN 500 mg oral tablet, extended release 1 tab(s) orally 2 times a day UNKNOWN Reviewed and Held metoprolol succinate 50 mg oral tablet, extended release 1 tab(s) orally once a [id number] UNKNOWN Reviewed and Held MiraLax oral powder for reconstitution 17 gram(s) orally once a [id number] UNKNOWN UNKNOWN Reviewed and Held [place] 5 mg-325 mg oral tablet 1 tab(s) orally every 6 hours, As Needed - for [id number] UNKNOWN Reviewed and Held PARoxetine 20 mg [...] release 1 cap(s) orally Wednesday, Wednesday, and [id number] UNKNOWN Reviewed and Held Additional Current Orders [...] Potassium Level 3.6 - 3.7 mmol/L Normal [facility] PT/INRon 10-05-2022 PT Coag (PPP) [Time] 14.1 s High 9.8 - 13.4 [facility] Comment on above: Performed By: #### C BC #### [address] [address] PT, INR 1.2 High 0.9 - 1.1 [facility] Comment on above: Performed By: #### C BC #### [address] [address] Patient Profile - Adult v2on 10-05-2022 Patient Profile - Adult v2 Profile: Initial Info: How to be AddressedTommy Spoken Language PreferredEnglish Stated Reason for AdmissionBelly pain Wants Family/Rep Notified of Admissionyes, primary contact Notify PCPnotify PCP Informed of Patient Visiting Rightsyes Limitations on Visitors/Phone [place]one [place] Statusemployed Patient Belongingsnone Medications Brought to Hospitalno General Health: Blood Avoidance/Restrictionsnone (1) Weight in kg58 kilogram(s)(2) Weight in hsg894.8 pound(s) Weight Methodactual (measured) Scale Typebed Height [...] Living Arrangementsmobile home Services 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 Discussed the case with the data processing mechanic who accepted the patient for further evaluation and management post endoscopy. ECG revealed sinus rhythm with PACs at a rate of 73 beats per minute with OR interval 150, QRS of 94, QTc of458. No appreciable ST elevations or depressions. I reviewe (more content not included)... Normal [facility] Radiologyon 10-05-2022 Fluoroscopy duration Please click on the link to view the study images Normal [facility] Work Phone: Risk Screen - Adult Emergenc yon 10-05-2022 Risk Screen - Adult Emergency Preferred Language: Preferred Language: Preferred Language for Discussing Health Care (patient/designee)Latvian Patient Preferred Pharmacy: Patient Preferred Pharmacy Statement: [...] Learning Preferencesverbal instruction Cultural Considerationsnone Developmental Considerationsnone Baptist Considerationsnone Learning Assessment (Other Learner): Learning Assessment [...] an injured patient at a Trauma Center (TOM/Avani/Eleno/Nandini/Marlon Caurso/Juan Carlos): no Electronic Signatures: Delores Arana) (Signed 05-Oct-2022 10:05) Authored: Preferred Language, Patient Preferred Pharmacy, Advanced Directives, Family Violence Adult, Learning Assessment (Patient), Learning Assessment (Other Learner), Pressure Injury/TB/Substance, Pressure Injury, CAGE Last Updated: 05-Oct-2022 10:05 by Delores Arana) Normal [facility] TROPONIN I, HIGH SENSITIVITY on 10-05-2022 TROPONIN I, HIGH SENSITIVITY 36 ng/L High 0 - 20 [facility] Comment on above: Result Comment: . Less [...] performed using a different testing methodology at [facility] than at other [facility]. Direct result comparisons should only be made within the same method. Performed By: #### T [facility] #### [facility] [address] [place] [address] TROPONIN I, HIGH SENSITIVITY 33 ng/L High 0 - 20 [facility] Comment on above: Result Comment: . Less [...] performed using a different testing methodology at [facility] than at other [facility]. Direct result comparisons should only be made within the same method. Performed By: #### T RPH[facility] ####[facility] [facility] [place] [address] TROPONIN I, HIGH SENSITIVITY 43 ng/L High 0 - 20 [facility] Comment on above: Result Comment: . Less [...] performed using a different testing methodology at [facility] than at other [facility]. Direct result comparisons should only be made within the same method. Performed By: #### T [facility] #### [facility] [address] [place] [address] Tropinin I.cardiac panel High sensitivity method 36 ng/L above high threshold 0 - 20 [facility] Work Phone: Comment on above: .Less [...] performed using a different testing methodology at [facility] than at other [facility]. Direct result comparisons should only be made within the same method. Tropinin I.cardiac panel High sensitivity method 33 ng/L above high threshold 0 - 20 [facility] Work Phone: Comment on above: .Less [...] performed using a different testing methodology at [facility] than at other [facility]. Direct result comparisons should only be made within the same method. Tropinin I.cardiac panel High sensitivity method 43 ng/L above high threshold 0 - 20 [facility] Work Phone: Comment on above: .Less than [...] performed using a different testing methodology at [facility] than at other [facility]. Direct result comparisons should only be made within the same method. TYPE + SCREENon 10-05-2022 ABO TYPE O Normal [facility] Comment on above: Performed By: #### C BC #### [facility] [address] [place] [address] RH TYPE Negative Normal [facility] Comment on above: Performed By: #### C #### [facility] [address] [facility] [place] [address] Triage - EDon 10-05-2022 Triage - ED Quick Triage: The patient and/or guardian verbally acknowledges placement for services into the following (when Urgent Care Service hours are operating):emergency department Chart Review: PRIMARY ASSESSMENT GOPAL IRVING'marlon primary assessment is Within Defined Limits. The airway is open and patent. Breathing spontaneous and unlabored with clear breath sounds bilaterally. Circulation is normal with good peripheral pulses. Skin is warm and dry and color is normal for race. ARRIVAL INFORMATION Mode of Arrival: private vehicle CHIEF COMPLAINT GOPAL IRVING is a Male patient with a chief complaint of abdominal pain (sent from [facility]. supposed to have a scope today but [...] obeys commands Best Verbal Response: (V5) oriented [place] Score: 15 Cough lasting greater than 3 [...] patient cognitively impaired not cognitively impaired Interventions: Carney Fall Interventions: LOW INTERVENTIONS: *patient oriented to [...] Medical History Reviewedno Electronic Signatures: Delores Arana (RN) (Signed 05-Oct-2022 10:04) Authored: Quick Triage, Risk Screens, Pain, ABCD, Travel History, Chart Review, Scores, Past Medical History Last Updated: 05-Oct-2022 10:04 by Delores Arana (MATT) [facility] URINALYSIS WITH CULTURE IF I NDICATEDon 10-05-2022 Appearance (U) Canceled Normal [facility] Comment on above: Order Comment: TEST URINALYSIS WITH CULTURE IF INDICATED WAS CANCELLED, 10/05/2022 16:48duplicate order. Performed By: #### U ARFX ####[address] [address] ASCORBIC ACID Canceled [facility] Comment on above: Order Comment: TEST URINALYSIS WITH CULTURE IF INDICATED WAS CANCELLED, 10/05/2022 16:48duplicate order. Result Comment: Conc entrations > = 20 mg/dL of ascorbic acid can be expected to cause strong interference in the reactions testing for glucose, nitrite and blood. It is recommended to discontinue Vitamin C administration and retest in 10 hours. Performed By: #### U ARFX ####[id number] [place] [address] Bilirubin Ql (U) Canceled [facility] Comment on above: Order Comment: TEST URINALYSIS WITH CULTURE IF INDICATED WAS CANCELLED, 10/05/2022 16:48duplicate order. Performed By: #### U ARFX ####[id number] [place] [address] Color (U) Canceled Normal [facility] Comment on above: Order Comment: TEST URINALYSIS WITH CULTURE IF INDICATED WAS CANCELLED, 10/05/2022 16:48duplicate order. Performed By: #### U ARFX ####[address] [address] Glucose Ql (U) Canceled Normal [facility] Comment on above: Order Comment: TEST URINALYSIS WITH CULTURE IF INDICATED WAS CANCELLED, 10/05/2022 16:48duplicate order. Performed By: #### U ARFX ####[address] [address] Hemoglobin Ql (U) Canceled Normal [facility] Comment on above: Order Comment: TEST URINALYSIS WITH CULTURE IF INDICATED WAS CANCELLED, 10/05/2022 16:48duplicate order. Performed By: #### U ARFX ####[address] [address] Ketones Ql (U) Canceled Normal [facility] Comment on above: Order Comment: TEST URINALYSIS WITH CULTURE IF INDICATED WAS CANCELLED, 10/05/2022 16:48duplicate order. Performed By: #### U ARFX ####[address] [address] Leukocyte esterase Test strip Ql (U) Canceled [facility] Comment on above: Order Comment: TEST URINALYSIS WITH CULTURE IF INDICATED WAS CANCELLED, 10/05/2022 16:48duplicate order. Performed By: #### U ARFX ####[address] [address] Nitrite Ql (U) Canceled [facility] Comment on above: Order Comment: TEST URINALYSIS WITH CULTURE IF INDICATED WAS CANCELLED, 10/05/2022 16:48duplicate order. Performed By: #### U ARFX ####[address] [place] [address] pH Canceled [facility] Comment on above: Order Comment: TEST URINALYSIS WITH CULTURE IF INDICATED WAS CANCELLED, 10/05/2022 16:48duplicate order. Performed By: #### U ARFX ####[address] [address] Protein Ql (U) Canceled Normal [facility] Comment on above: Order Comment: TEST URINALYSIS WITH CULTURE IF INDICATED WAS CANCELLED, 10/05/2022 16:48duplicate order. Performed By: #### U ARFX ####[address] [address] Specific gravity (U) [Rel density] Canceled Normal [facility] Comment on above: Order Comment: TEST URINALYSIS WITH CULTURE IF INDICATED WAS CANCELLED, 10/05/2022 16:48duplicate order. Performed By: #### U ARFX ####[address] [address] UROBILINOGEN Canceled Normal [facility] Comment on above: Order Comment: TEST URINALYSIS WITH CULTURE IF INDICATED WAS CANCELLED, 10/05/2022 16:48duplicate order. Performed By: #### U ARFX ####[address] [address] Alanine aminotransferase [En zymatic activity/volume] in Serum or PlasmaOrdered By: Dejuan Wolf on 10-03-2022 ALT [Catalytic activity/Vol] 43 U/L 7-52 [facility] Albumin [Mass/volume] in Ser um or Plasma by Bromocresol green (BCG) dye binding methoOrdered By: Dejuan Wolf on 10-03-2022 Albumin BCG dye [Mass/Vol] 3.9 g/dL 3.5-5.7 [facility] Alkaline phosphatase [Enzyma tic activity/volume] in Serum or PlasmaOrdered By: Dejuan Wolf on 10-03-2022 ALP [Catalytic activity/Vol] 169 U/L 34-104 [facility] Aspartate aminotransferase [ Enzymatic activity/volume] in Serum or PlasmaOrdered By: Dejuan Wolf on 10-03-2022 AST [Catalytic activity/Vol] 17 U/L 13-39 [facility] Basophils Auto (Bld) [#/Vol] Ordered By: Dejuan Wolf on 10-03-2022 Basophils (Bld) [#/Vol] 0.1 10*3/uL 0.0-0.2 [facility] Basophils/100 WBC Auto (Bld) Ordered By: Dejuan Wolf on 10-03-2022 Basophils/100 WBC (Bld) 1.2 % . [facility] Bilirubin.total [Mass/volume ] in Serum or PlasmaOrdered By: Dejuan Wolf on 10-03-2022 Bilirubin [Mass/Vol] 0.5 mg/dL 0.3-1.0 [facility] Calcium [Mass/volume] in Ser um or PlasmaOrdered By: Dejuan Wolf on 10-03-2022 Calcium [Mass/Vol] 9.6 mg/dL 8.6-10.3 [facility] Carbon dioxide, total [Moles /volume] in Serum or PlasmaOrdered By: Dejuan Wolf on 10-03-2022 CO2 [Moles/Vol] 25.4 mmol/L 21.0-31.0 [facility] Chloride [Moles/volume] in S glendy or PlasmaOrdered By: Dejuan Wolf on 10-03-2022 Chloride [Moles/Vol] 105 mmol/L 98-107 [facility] Creatinine [Mass/volume] in Serum or PlasmaOrdered By: Dejuan Wolf on 10-03-2022 Creatinine [Mass/Vol] 0.92 mg/dL 0.70-1.30 [facility] Eosinophils Auto (Bld) [#/Vo l]Ordered By: Dejuan Wolf on 10-03-2022 Eosinophils (Bld) [#/Vol] 0.5 10*3/uL 0.0-0.45 [facility] Eosinophils/100 WBC Auto (Bl d)Ordered By: Dejuan Wolf on 10-03-2022 Eosinophils/100 WBC (Bld) 3.8 % . [facility] Erythrocyte distribution wid th Auto (RBC) [Ratio]Ordered By: Dejuan Wolf on 10-03-2022 Erythrocyte distribution width (RBC) [Ratio] 16.4 % 12.0-14.8 [facility] Globulin Calc (S) [Mass/Vol] Ordered By: Dejuan Wolf on 10-03-2022 Globulin (S) [Mass/Vol] 3.1 g/dL [facility] Glucose [Mass/volume] in Ser um or PlasmaOrdered By: Dejuan Wolf on 10-03-2022 Glucose [Mass/Vol] 119 mg/dL 74-109 [facility] Comment on above: ADA recommended refe rence rangeRandom Glucose Reference Range is dependent on time and content of last meal. Glucose of more than 200 mg/dL in a nonstressed, ambulatory subject supports the diagnosis of Diabetes Mellitus. Hematocrit Auto (Bld) [Volum e fraction]Ordered By: Dejuan Wolf on 10-03-2022 Hematocrit (Bld) [Volume fraction] 38.8 % 38.8-50.0 [facility] Hemoglobin [Mass/volume] in BloodOrdered By: Dejuan Wolf on 10-03-2022 Hemoglobin (Bld) [Mass/Vol] 12.9 g/dL 13.0-17.0 [facility] Laboratory - Chemistry and C hemistry - challengeOrdered By: Dejuan Wolf on 10-03-2022 GFR/1.73 sq M.predicted MDRD (S/P/Bld) [Vol rate/Area] mL/min/{1.73_m2} [facility] Lactate [Moles/volume] in Se rum or PlasmaOrdered By: Dejuan Wolf on 10-03-2022 Lactate [Moles/Vol] 0.9 mmol/L 0.5-2.2 [facility] Leukocytes [#/volume] correc dhaval for nucleated erythrocytes in Blood by Automated counOrdered By: Dejuan Wolf on 10-03-2022 WBC corrected for nucl RBC Auto (Bld) [#/Vol] 12.1 10*3/uL 4.1-10.5 [facility] Lipase [Enzymatic activity/v olume] in Serum or PlasmaOrdered By: Dejuan Wolf on 10-03-2022 Lipase [Catalytic activity/Vol] 10.0 U/L 11.0-82.0 [facility] Lymphocytes Auto (Bld) [#/Vo l]Ordered By: Dejuan Wolf on 10-03-2022 Lymphocytes (Bld) [#/Vol] 2.5 10*3/uL 1.00-4.8 [facility] Lymphocytes/100 WBC Auto (Bl d)Ordered By: Dejuan Wolf on 10-03-2022 Lymphocytes/100 WBC (Bld) 20.7 % . [facility] MCH Auto (RBC) [Entitic mass ]Ordered By: Dejuan Wolf on 10-03-2022 MCH (RBC) [Entitic mass] 28.5 pg 27.5-35.2 [facility] MCHC Auto (RBC) [Mass/Vol]Or dered By: Dejuan Wolf on 10-03-2022 MCHC (RBC) [Mass/Vol] 33.2 g/dL 32.5-35.6 [facility] MCV Auto (RBC) [Entitic vol] Ordered By: Dejuan Wolf on 10-03-2022 MCV (RBC) [Entitic vol] 85.9 fL 83.5-101 [facility] Monocytes Auto (Bld) [#/Vol] Ordered By: Dejuan Wolf on 10-03-2022 Monocytes (Bld) [#/Vol] 0.6 10*3/uL 0.0-0.8 [facility] Monocytes/100 WBC Auto (Bld) Ordered By: Dejuan Wolf on 10-03-2022 Monocytes/100 WBC (Bld) 5.3 % . [facility] Neutrophils Auto (Bld) [#/Vo l]Ordered By: Dejuan Wolf on 10-03-2022 Neutrophils (Bld) [#/Vol] 8.4 10*3/uL 1.8-7.7 [facility] Neutrophils/100 WBC Auto (Bl d)Ordered By: Dejuan Wolf on 10-03-2022 Neutrophils/100 WBC (Bld) 69.0 % . [facility] No Panel InformationOrdered By: Dejuan Wolf on 10-03-2022 Pharmacy Creatinine Clearance (Chem 59.06 [facility] Nucleated erythrocytes [Pres ence] in Blood by Automated countOrdered By: Dejuan Wolf on 10-03-2022 Nucleated RBC Auto Ql (Bld) 0.1 /100{WBC} 0-0.5 [facility] Platelet mean volume Auto (B ld) [Entitic vol]Ordered By: Dejuan Wolf on 10-03-2022 Platelet mean volume (Bld) [Entitic vol] 9.9 fL 6.6-10.1 [facility] Platelets Auto (Bld) [#/Vol] Ordered By: Dejuan Wolf on 10-03-2022 Platelets (Bld) [#/Vol] 204 10*3/uL 150-450 [facility] Potassium [Moles/volume] in Serum or PlasmaOrdered By: Dejuan Wolf on 10-03-2022 Potassium [Moles/Vol] 4.0 mmol/L 3.5-5.1 [facility] Protein [Mass/volume] in Ser um or PlasmaOrdered By: Dejuan Wolf on 10-03-2022 Protein [Mass/Vol] 7.0 g/dL 6.4-8.9 [facility] RBC Auto (Bld) [#/Vol]Ordere d By: Dejuan Wolf on 10-03-2022 RBC (Bld) [#/Vol] 4.52 10*6/uL 3.90-5.60 [facility] Serum or plasma albumin/glob ulin mass ratioOrdered By: Dejuan Wolf on 10-03-2022 Albumin/Globulin [Mass ratio] 1.3 {ratio} [facility] Serum or plasma anion gap de terminationOrdered By: Dejuan Wolf on 10-03-2022 Anion gap [Moles/Vol] 10.6 mmol/L 6.0-15.0 [facility] Sodium [Moles/volume] in Ser um or PlasmaOrdered By: Dejuan Wolf on 10-03-2022 Sodium [Moles/Vol] 137 mmol/L 136-145 [facility] Urea nitrogen [Mass/volume] in Serum or PlasmaOrdered By: Dejuan Wolf on 10-03-2022 Urea nitrogen [Mass/Vol] 17 mg/dL 7-25 [facility] WBC Auto (Bld) [#/Vol]Ordere d By: Dejuan Wolf on 10-03-2022 WBC (Bld) [#/Vol] 12.1 10*3/uL 4.1-10.5 [facility] Activated partial thrombopla stin time (aPTT) in platelet poor plasma by coagulation aOrdered By: Ubaldo Poole on 09-29-2022 aPTT Coag (PPP) [Time] 31.7 s 25.1-36.5 [facility] Glucose Glucometer (BldC) [M ass/Vol]Ordered By: Anton Fontenot on 09-29-2022 Glucose [Mass/Vol] 197 mg/dL [facility] Comment on above: Random Glucose Refer ence Range is dependent on time and content of last meal. Glucose of more than 200 mg/dL in a nonstressed, ambulatory subject supports the diagnosis of Diabetes Mellitus. Alanine aminotransferase [En zymatic activity/volume] in Serum or PlasmaOrdered By: Ubaldo Poole on 09-28-2022 ALT [Catalytic activity/Vol] 200 U/L 7-52 [facility] Albumin [Mass/volume] in Ser um or Plasma by Bromocresol green (BCG) dye binding methoOrdered By: Ubaldo Poole on 09-28-2022 Albumin BCG dye [Mass/Vol] 3.2 g/dL 3.5-5.7 [facility] Alkaline phosphatase [Enzyma tic activity/volume] in Serum or PlasmaOrdered By: Ubaldo Poole on 09-28-2022 ALP [Catalytic activity/Vol] 228 U/L 34-104 [facility] Aspartate aminotransferase [ Enzymatic activity/volume] in Serum or PlasmaOrdered By: Ubaldo Poole on 09-28-2022 AST [Catalytic activity/Vol] 88 U/L 13-39 [facility] Bilirubin.total [Mass/volume ] in Serum or PlasmaOrdered By: Ubaldo Poole on 09-28-2022 Bilirubin [Mass/Vol] 0.9 mg/dL 0.3-1.0 [facility] Calcium [Mass/volume] in Ser um or PlasmaOrdered By: Ubaldo Poole on 09-28-2022 Calcium [Mass/Vol] 8.5 mg/dL 8.6-10.3 [facility] Carbon dioxide, total [Moles /volume] in Serum or PlasmaOrdered By: Ubaldo Poole on 09-28-2022 CO2 [Moles/Vol] 23.9 mmol/L 21.0-31.0 [facility] Chloride [Moles/volume] in S glendy or PlasmaOrdered By: Ubaldo Poole on 09-28-2022 Chloride [Moles/Vol] 108 mmol/L 98-107 [facility] Creatinine [Mass/volume] in Serum or PlasmaOrdered By: Ubaldo Poole on 09-28-2022 Creatinine [Mass/Vol] 1.13 mg/dL 0.70-1.30 [facility] Globulin Calc (S) [Mass/Vol] Ordered By: Ubaldo Poole on 09-28-2022 Globulin (S) [Mass/Vol] 2.1 g/dL [facility] Glucose [Mass/volume] in Ser um or PlasmaOrdered By: Ubaldo Poole on 09-28-2022 Glucose [Mass/Vol] 115 mg/dL 74-109 [facility] Comment on above: ADA recommended refe rence rangeRandom Glucose Reference Range is dependent on time and content of last meal. Glucose of more than 200 mg/dL in a nonstressed, ambulatory subject supports the diagnosis of Diabetes Mellitus. Laboratory - Chemistry and C hemistry - challengeOrdered By: Ubaldo Poole on 09-28-2022 GFR/1.73 sq M.predicted MDRD (S/P/Bld) [Vol rate/Area] mL/min/{1.73_m2} [facility] No Panel InformationOrdered By: Anton Fontenot on 09-28-2022 Bedside Glucose Comment Glu2: cleaned meter [facility] No Panel InformationOrdered By: Ubaldo Poole on 09-28-2022 Pharmacy Creatinine Clearance (Chem 50.72 [facility] Potassium [Moles/volume] in Serum or PlasmaOrdered By: Ubaldo Poole on 09-28-2022 Potassium [Moles/Vol] 3.7 mmol/L 3.5-5.1 [facility] Protein [Mass/volume] in Ser um or PlasmaOrdered By: Ubaldo Poole on 09-28-2022 Protein [Mass/Vol] 5.3 g/dL 6.4-8.9 [facility] Serum or plasma albumin/glob ulin mass ratioOrdered By: Ubaldo Poole on 09-28-2022 Albumin/Globulin [Mass ratio] 1.5 {ratio} [facility] Serum or plasma anion gap de terminationOrdered By: Ubaldo Poole on 09-28-2022 Anion gap [Moles/Vol] 9.8 mmol/L 6.0-15.0 [facility] Sodium [Moles/volume] in Ser um or PlasmaOrdered By: Ubaldo Poole on 09-28-2022 Sodium [Moles/Vol] 138 mmol/L 136-145 [facility] Urea nitrogen [Mass/volume] in Serum or PlasmaOrdered By: Ubaldo Poole on 09-28-2022 Urea nitrogen [Mass/Vol] 20 mg/dL 7-25 [facility] Basophils Auto (Bld) [#/Vol] Ordered By: Ubaldo Poole on 09-27-2022 Basophils (Bld) [#/Vol] 0.1 10*3/uL 0.0-0.2 [facility] Basophils/100 WBC Auto (Bld) Ordered By: Ubaldo Poole on 09-27-2022 Basophils/100 WBC (Bld) 0.6 % . [facility] Eosinophils Auto (Bld) [#/Vo l]Ordered By: Ubaldo Poole on 09-27-2022 Eosinophils (Bld) [#/Vol] 0.3 10*3/uL 0.0-0.45 [facility] Eosinophils/100 WBC Auto (Bl d)Ordered By: Ubaldo Poole on 09-27-2022 Eosinophils/100 WBC (Bld) 2.4 % . [facility] Erythrocyte distribution wid th Auto (RBC) [Ratio]Ordered By: Ubaldo Poole on 09-27-2022 Erythrocyte distribution width (RBC) [Ratio] 16.4 % 12.0-14.8 [facility] Hematocrit Auto (Bld) [Volum e fraction]Ordered By: Ubaldo Poole on 09-27-2022 Hematocrit (Bld) [Volume fraction] 35.5 % 38.8-50.0 [facility] Hemoglobin [Mass/volume] in BloodOrdered By: Ubaldo Poole on 09-27-2022 Hemoglobin (Bld) [Mass/Vol] 11.5 g/dL 13.0-17.0 [facility] Laboratory - CoagulationOrde red By: Ubaldo Poole on 09-27-2022 PT Coag (PPP) [Time] 14.3 s 9.0-12.9 [facility] Leukocytes [#/volume] correc dhaval for nucleated erythrocytes in Blood by Automated counOrdered By: Ubaldo Poole on 09-27-2022 WBC corrected for nucl RBC Auto (Bld) [#/Vol] 12.4 10*3/uL 4.1-10.5 [facility] Lymphocytes Auto (Bld) [#/Vo l]Ordered By: Ubaldo Poole on 09-27-2022 Lymphocytes (Bld) [#/Vol] 1.4 10*3/uL 1.00-4.8 [facility] Lymphocytes/100 WBC Auto (Bl d)Ordered By: Ubaldo Poole on 09-27-2022 Lymphocytes/100 WBC (Bld) 11.3 % . [facility] MCH Auto (RBC) [Entitic mass ]Ordered By: Ubaldo Poole on 09-27-2022 MCH (RBC) [Entitic mass] 27.7 pg 27.5-35.2 [facility] MCHC Auto (RBC) [Mass/Vol]Or dered By: Ubaldo Poole on 09-27-2022 MCHC (RBC) [Mass/Vol] 32.4 g/dL 32.5-35.6 [facility] MCV Auto (RBC) [Entitic vol] Ordered By: Ubaldo Poole on 09-27-2022 MCV (RBC) [Entitic vol] 85.7 fL 83.5-101 [facility] Monocytes Auto (Bld) [#/Vol] Ordered By: Ubaldo Poole on 09-27-2022 Monocytes (Bld) [#/Vol] 0.8 10*3/uL 0.0-0.8 [facility] Monocytes/100 WBC Auto (Bld) Ordered By: Ubaldo Poole on 09-27-2022 Monocytes/100 WBC (Bld) 6.1 % . [facility] Neutrophils Auto (Bld) [#/Vo l]Ordered By: Ubaldo Poole on 09-27-2022 Neutrophils (Bld) [#/Vol] 9.9 10*3/uL 1.8-7.7 [facility] Neutrophils/100 WBC Auto (Bl d)Ordered By: Ubaldo Poole on 09-27-2022 Neutrophils/100 WBC (Bld) 79.6 % . [facility] Nucleated erythrocytes [Pres ence] in Blood by Automated countOrdered By: Ubaldo Poole on 09-27-2022 Nucleated RBC Auto Ql (Bld) 0.0 /100{WBC} 0-0.5 [facility] Platelet mean volume Auto (B ld) [Entitic vol]Ordered By: Ubaldo Poole on 09-27-2022 Platelet mean volume (Bld) [Entitic vol] 10.2 fL 6.6-10.1 [facility] Platelet poor plasma interna tional normalized ratio (INR) by coagulation assay (relatOrdered By: Ubaldo Poole on 09-27-2022 INR Coag (PPP) [Relative time] 1.2 {INR} [facility] Comment on above: INR Therapeutic Rang e [...] 09-27-2022 Platelets (Bld) [#/Vol] 127 10*3/uL 150-450 [facility] RBC Auto (Bld) [#/Vol]Ordere d By: Ubaldo Poole on 09-27-2022 RBC (Bld) [#/Vol] 4.14 10*6/uL 3.90-5.60 [facility] Troponin I.cardiac [Mass/vol ume] in Serum or Plasma by Detection limit <= 0.01 ng/Ordered By: Ubaldo Poole on 09-27-2022 Troponin I.cardiac DL <= 0.01 ng/mL [Mass/Vol] 3799.2 pg/mL 0.0-20.0 [facility] Comment on above: Critical Result : Ca lled to and read back by: TONIO MILLS at: 09/27/2022 07:53:46 by:[id number] WBC Auto (Bld) [#/Vol]Ordere d By: Ubaldo Poole on 09-27-2022 WBC (Bld) [#/Vol] 12.4 10*3/uL 4.1-10.5 [facility] AMYLASEon 09-26-2022 Amylase [Catalytic activity/Vol] 39 U/L Normal 25-115 [facility] Comment on above: Performed By: #### V ITSYLVESTER, PSASC #### [facility] [address] [place] [address] Dr. Charlotte Awan CARDIAC MACY 3-6on 3 CK [Catalytic activity/Vol] 33 U/L Critically low 39-308 [facility] Comment on above: Performed By: #### V ITAD, PSASC #### [facility] [address] [place] [address] Dr. Charlotte Awan CK.MB [Mass/Vol] 1.23 ng/mL Normal <=3.60 [facility] Comment on above: Performed By: #### V ITAD, PSASC #### [facility] [address] [place] [address] Dr. Charlotte Awan HSTROP 45.3 pg/mL Normal 4.0-76.1 [facility] Comment on above: Result Comment: CUT- OFF POINTS HAVE BEEN ESTABLISHED BASED ON THE FOURTH UNIVERSAL DEFINITIONS OF MYOCARDIAL INFARCTION. THE UPPER REFERENCE LIMIT (URL) OF TROPONIN, DEFINED THE 99TH PERCENTILE OF cTnI DISTRIBUTION IN A REFERENCE POPULATION, HAS BEEN CONFIRMED THE DECISION THRESHOLD FOR [place] DIAGNOSIS. Performed By: #### V ITAD, PSASC #### [facility] [address] [place] [address] Dr. Charlotte Awan CARDIAC MACY ADMITon 023 CK [Catalytic activity/Vol] 27 U/L Critically low 39-308 [facility] Comment on above: Performed By: #### V ITAD, PSASC #### [facility] [address] [place] [address] Dr. Charlotte Awan CK.MB [Mass/Vol] 1.15 ng/mL Normal <=3.60 [facility] Comment on above: Performed By: #### Nelida ANDERSON PSASC #### [facility] [address] [place] [address] Dr. Charlotte Awan HSTROP 9.4 pg/mL Normal 4.0-76.1 [facility] Comment on above: Result Comment: CUT- OFF POINTS HAVE BEEN ESTABLISHED BASED ON THE FOURTH UNIVERSAL DEFINITIONS OF MYOCARDIAL INFARCTION. THE UPPER REFERENCE LIMIT (URL) OF TROPONIN, DEFINED THE 99TH PERCENTILE OF cTnI DISTRIBUTION IN A REFERENCE POPULATION, HAS BEEN CONFIRMED THE DECISION THRESHOLD FOR [place] DIAGNOSIS. Performed By: #### Nelida ANDERSON PSASC #### [facility] [address] [place] [address] Dr. Charlotte Awan SHERRI 20 ng/mL Normal 16-96 [facility] Comment on above: Performed By: #### Nelida ANDERSON PSARADHA #### [facility] [address] [place] [address] Dr. Charlotte Awan CBC W MANUAL DIFFon 09-27-19 23 ATYPICAL LYMPH # 2.14 103/ul Normal [facility] Comment on above: Performed By: #### Sarina HAUSER #### [facility] [address] [place] [address] Dr. Charlotte Awan ATYPICAL LYMPH % 20 % Normal [facility] Comment on above: Performed By: #### Sarina HAUSER #### [facility] [address] [place] [address] Dr. Charlotte Awan BAND # 0.0 103/ul Normal 0.0-0.3 [facility] Comment on above: Performed By: #### Sarina HAUSER #### [facility] [address] [place] [address] Dr. Charlotte Awan BAND % 0 % Normal 0-5 [facility] Comment on above: Performed By: #### Sarina HAUSER #### [facility] [address] [place] [address] Dr. Charlotte Awan BASOM # 0.00 103/ul Normal 0.00-0.10 [facility] Comment on above: Performed By: #### C BCMAN #### [facility] [address] [address] [address] Charlotte Awan BASOM % 0.0 % Critically low 0.2-2.0 [facility] Comment on above: Performed By: #### C BCMAN #### [facility] [address] [address] [address] Charlotte Awan BLAST # Normal [facility] Comment on above: Performed By: #### C BCMAN #### [facility] [address] [address] [address] Charlotte Awan BLAST % Normal [facility] Comment on above: Performed By: #### C BCMAN #### [facility] [address] [place] [address] Dr. Charlotte Awan CORRECTED WBC Normal 4.0-11.0 [facility] Comment on above: Performed By: #### C BCMAN #### [facility] [address] [place] [address] Dr. Charlotte Awan EOS # 0.86 103/ul Critically high 0.00-0.70 [facility] Comment on above: Performed By: #### C BCMAN #### [facility] [address] [place] [address] Dr. Charlotte Awan EOS% 8.0 % Critically high 0.9-7.0 [facility] Comment on above: Performed By: #### C BCMAN #### [facility] [address] [place] [address] Dr. Charlotte Awan HCT 37.8 % Critically low 42.0-54.0 [facility] Comment on above: Performed By: #### C BCMAN #### [facility] [address] [place] [address] Dr. Charlotte Awan HGB 12.1 g/dl Critically low 14.0-18.0 [facility] Comment on above: Performed By: #### C BCMAN #### [facility] [address] [place], [place] [id number] Dr. Charlotte Awan LYMPHM # 1.93 103/ul Normal 1.20-3.80 [facility] Comment on above: Performed By: #### C ANALISA #### [facility] [address] [place] [address] Dr. Charlotte Awan LYMPHM% 18.0 % Critically low 20.5-60.0 [facility] Comment on above: Performed By: #### C ANALISA #### [facility] [address] [place] [address] Dr. Charlotte Awan MCH 27.9 pg Normal 25.9-34.0 [facility] Comment on above: Performed By: #### C ANALISA #### [facility] [address] [place] [address] Dr. Charlotte Awan MCHC 32.0 g/dl Normal 29.9-35.2 [facility] Comment on above: Performed By: #### C ANALISA #### [facility] [address] [place] [address] Dr. Charlotte Awan MCV 87.1 fL Normal 80.0-94.0 [facility] Comment on above: Performed By: #### C ANALISA #### [facility] [address] [place] [address] Dr. Charlotte Awan METAMYELOCYTE # Normal [facility] Comment on above: Performed By: #### C ANALISA #### [facility] [address] [place] [address] Dr. Charlotte Awan METAMYELOCYTE % Normal [facility] Comment on above: Performed By: #### C ANALISA #### [facility] [address] [place] [address] Dr. Charlotte Awan MONOM# 0.32 103/ul Normal 0.30-0.80 [facility] Comment on above: Performed By: #### C ANALISA #### [facility] [address] [place] [address] Dr. Charlotte Awan MONOM% 3.0 % Normal 1.7-12.0 [facility] Comment on above: Performed By: #### C ANALISA #### [facility] [address] [address] [address] Charlotte Awan MPV 12.1 fL Normal 9.5-13.5 [facility] Comment on above: Performed By: #### C ANALISA #### [facility] [address] [address] [address] Charlotte Awan MYELOCYTE # Normal [facility] Comment on above: Performed By: #### C ANALISA #### [facility] [address] [address] [address] Charlotte Awan MYELOCYTE % Normal [facility] Comment on above: Performed By: #### C ANALISA #### [facility] [address] [address] [address] Charlotte Awan NRBC Normal [facility] Comment on above: Performed By: #### C ANALISA #### [facility] [address] [address] [address] Charlotte Awan PLT 181 103/ul Normal 150-450 [facility] Comment on above: Performed By: #### C ANALISA #### [facility] [address] [address] [address] Charlotte Awan RBC 4.34 106/ul Critically low 4.70-6.10 [facility] Comment on above: Performed By: #### C ANALISA #### [facility] [address] [address] [address] Charlotte Awan RDW 15.8 % Critically high 11.0-15.0 [facility] Comment on above: Performed By: #### C ANALISA #### [facility] [address] [address] [address] Charlotte Awan SEG # 5.46 103/ul Normal 1.40-6.50 [facility] Comment on above: Performed By: #### C ANALISA #### [facility] [address] [address] [address] Charlotte Awan SEG % 51.0 % Normal 43.0-75.0 [facility] Comment on above: Performed By: #### C ANALISA #### [facility] [address] [place], [place] [address] Dr. Charlotte Awan WBC 10.7 103/ul Normal 4.0-11.0 [facility] Comment on above: Performed By: #### C ADORE #### [facility] [address] [place], [place] [address] Dr. Charlotte Awan CTA ABD/PELVIS WO W [...] by: CHRISS BETANCOURT Date: 2022-09-26 06:17 Normal [facility] LIPASEon 09-26-2022 Lipase [Catalytic activity/Vol] 116.0 U/L Normal 73.0-393.0 [facility] Comment on above: Performed By: #### V ITSYLVESTER, PSASC #### [facility] [address] [place] [address] Dr. Charlotte Awan PROF 14(COMP METB)on 023 Albumin [Mass/Vol] 3.1 g/dL Critically low 3.4-5.0 [facility] Comment on above: Performed By: #### V ITSYLVESTER, PSASC #### [facility] [address] [place] [address] Dr. Charlotte Awan Albumin/Globulin [Mass ratio] 0.9 {ratio} Normal [facility] Comment on above: Performed By: #### V ITSYLVESTER, PSASC #### [facility] [address] [place] [address] Dr. Charlotte Awan ALP [Catalytic activity/Vol] 180 U/L Critically high 46-116 [facility] Comment on above: Performed By: #### V ITSYLVESTER, PSASC #### [facility] [address] [place] [address] Dr. Charlotte Awan ALT [Catalytic activity/Vol] 54 U/L Normal 16-63 [facility] Comment on above: Performed By: #### V ITSYLVESTER, PSASC #### [facility] [address] [place] [address] Dr. Charlotte Awan Anion gap [Moles/Vol] 8.0 mmol/L Normal [facility] Comment on above: Performed By: #### V ITAD, PSASC #### [facility] [address] [place] [address] Dr. Charlotte Awan AST [Catalytic activity/Vol] 119 U/L Critically high 15-37 [facility] Comment on above: Performed By: #### V ITAD, PSASC #### [facility] [address] [address] [address] Charlotte Awan Bilirubin [Mass/Vol] 0.4 mg/dL Normal 0.2-1.0 [facility] Comment on above: Performed By: #### V ITAD, PSASC #### [facility] [address] [place] [address] Dr. Charlotte Awan Calcium [Mass/Vol] 9.1 mg/dL Normal 8.5-10.1 [facility] Comment on above: Performed By: #### V ITAD, PSASC #### [facility] [address] [place] [address] Dr. Charlotte Awan Chloride [Moles/Vol] 109 mmol/L Critically high 98-107 [facility] Comment on above: Performed By: #### V ITAD, PSASC #### [facility] [address] [place] [address] Dr. Charlotte Awan CO2 [Moles/Vol] 27.6 mmol/L Normal 21.0-32.0 [facility] Comment on above: Performed By: #### V ITAD, PSASC #### [facility] [address] [place] [address] Dr. Charlotte Awan Creatinine [Mass/Vol] 0.91 mg/dL Normal 0.70-1.30 [facility] Comment on above: Performed By: #### V ITAD, PSASC #### [facility] [address] [place] [address] Dr. Charlotte Awan EGFR-AF SIERRA LEONEAN >60 Normal >=60 [facility] Comment on above: Performed By: #### V ITAD, PSASC #### [facility] [address] [place] [address] Dr. Charlotte Awan EGFR-NON AF SIERRA LEONEAN >60 Normal >=60 [facility] Comment on above: Performed By: #### V ITAD, PSASC #### [facility] [address] [place] [address] Dr. Charlotte Awan Globulin (S) [Mass/Vol] 3.4 g/dL Normal [facility] Comment on above: Performed By: #### V ITAD, PSASC #### [facility] [address] [address] [address] Charlotte Awan Glucose [Mass/Vol] 99 mg/dL Normal 74-106 [facility] Comment on above: Performed By: #### V ITAD, PSASC #### [facility] [address] [address] [address] Charlotte Awan Potassium [Moles/Vol] 3.6 mmol/L Normal 3.5-5.1 [facility] Comment on above: Performed By: #### V ITAD, PSASC #### [facility] [address] [address] [address] Charlotte Awan Protein [Mass/Vol] 6.5 g/dL Normal 6.4-8.2 [facility] Comment on above: Performed By: #### V ITAD, PSASC #### [facility] [address] [address] [address] Charlotte Awan Sodium [Moles/Vol] 141 mmol/L Normal 136-145 [facility] Comment on above: Performed By: #### V ITAD, PSASC #### [facility] [address] [address] [address] Charlotte Awan Urea nitrogen [Mass/Vol] 15.0 mg/dL Normal 7.0-18.0 [facility] Comment on above: Performed By: #### V ITAD, PSASC #### [facility] [address] [address] [address] Charlotte Awan Urea nitrogen/Creatinine [Mass ratio] 16.5 mg/mg Normal [facility] Comment on above: Performed By: #### V ITAD, PSASC #### [facility] [address] [address] [address] Charlotte Awan Serum or plasma cancer antig en 19-9 measurement (units/volume)Ordered By: Yemi Silverio on 09-26-2022 Cancer Ag 19-9 Qn 74 [arb'U]/mL 0-35 [facility] Comment on above: [employer] El ectrochemiluminescence Immunoassay(ECLIA)Values obtained with different assay methods or kits cannotbe used interchangeably. Results cannot be interpreted asabsolute evidence of the presence or absence of malignantdisease.Performed at: - [facility] [id number] Director: Anselmo Weiss PhD, Phone: [phone] XR CHEST 1 Von 09-26-2022 XR CHEST [...] DE LEON Date: 2022-09-26 05:33 Normal [facility] Office Visit (Cardiology)on 07-23-2022 Follow-up visit [...] we can help. You may also call [phone] for free resources and assistance.; Status:Complete - Retrospective Authorization; Done: 23Jul2022 Tobacco Use Screening; Status:Complete; Done: [id number] Two-vessel coronary artery disease Renew: Aspirin EC [...] took 3 to 5 minutes today to relationship counselor him on smoking cessation. He remains on [...] PHQ-9on 07-23-2022 Adult depression screening assessment Yes [facility] DO Work Phone: Fall risk assessment a) No falls within the last year [facility] DO Work Phone: Tobacco use status CPHS a) Yes [facility] DO Work Phone: PHQ-9 3-Nearly every day [facility] DO Work Phone: PHQ-9 0-Not at all [facility] DO Work Phone: [phone] PHQ-9 2-More than half the days [facility] DO Work Phone: PHQ-9 1-Several days [facility] [address] DO Work Phone: [phone] PHQ-9 Not difficult at all [facility] [address] DO Work Phone: PHQ-[address] [facility] [address] DO Work Phone: CBC AUTO DIFFon 05-21-2022 BASO # 0.0 103/ul Normal 0.0-0.1 [facility] Comment on above: Performed By: #### C BC #### [facility] [address] [place] [address] Dr. Charlotte Awan Basophils/100 WBC (Bld) 0.1 % Critically low 0.2-2.0 [facility] Comment on above: Performed By: #### C BC #### [facility] [address] [place] [address] Dr. Charlotte Awan EO # 0.0 103/ul Normal 0.0-0.7 [facility] Comment on above: Performed By: #### C BC #### [facility] [address] [place] [address] Dr. Charlotte Awan Eosinophils/100 WBC (Bld) 0.6 % Critically low 0.9-7.0 [facility] Comment on above: Performed By: #### C BC #### [facility] [address] [place] [address] Dr. Charlotte Awan Erythrocyte distribution width (RBC) [Ratio] 17.2 % Critically high 11.0-15.0 [facility] Comment on above: Performed By: #### C BC #### [facility] [address] [place] [address] Dr. Charlotte Awan Hematocrit (Bld) [Volume fraction] 36.9 % Critically low 42.0-54.0 [facility] Comment on above: Performed By: #### C BC #### [facility] [address] [place] [address] Dr. Charlotte Awan Hemoglobin (Bld) [Mass/Vol] 11.8 g/dL Critically low 14.0-18.0 [facility] Comment on above: Performed By: #### C BC #### [facility] [address] [address] [address] Charlotte Awan IG # 0.03 10e3/ul Normal 0.00-0.03 [facility] Comment on above: Performed By: #### C BC #### [facility] [address] [place] [address] Dr. Charlotte Awan IG % 0.4 % Normal 0.0-0.5 [facility] Comment on above: Performed By: #### C BC #### [facility] [address] [place] [address] Dr. Charlotte Awan LYMPH # 1.9 103/ul Normal 1.2-3.8 [facility] Comment on above: Performed By: #### C BC #### [facility] [address] [place] [address] Dr. Charlotte Awan Lymphocytes/100 WBC (Bld) 27.1 % Normal 20.5-60.0 [facility] Comment on above: Performed By: #### C BC #### [facility] [address] [place] [address] Dr. Charlotte Awan MANUAL DIFF REQ NO Normal [facility] Comment on above: Performed By: #### C BC #### [facility] [address] [place] [address] Dr. Charlotte Awan MCH (RBC) [Entitic mass] 27.6 pg Normal 25.9-34.0 [facility] Comment on above: Performed By: #### C BC #### [facility] [address] [place] [address] Dr. Charlotte Awan MCHC (RBC) [Mass/Vol] 32.0 g/dL Normal 29.9-35.2 [facility] Comment on above: Performed By: #### C BC #### [facility] [address] [place] [address] Dr. Charlotte Awan MCV (RBC) [Entitic vol] 86.2 fL Normal 80.0-94.0 [facility] Comment on above: Performed By: #### C BC #### [facility] [address] [address] [address] Charlotte Awan MONO # 0.4 103/ul Normal 0.3-0.8 [facility] Comment on above: Performed By: #### C BC #### [facility] [address] [place] [address] Dr. Charlotte Awan Monocytes/100 WBC (Bld) 5.3 % Normal 1.7-12.0 [facility] Comment on above: Performed By: #### C BC #### [facility] [address] [place] [address] Dr. Charlotte Awan NEUT # 4.7 103/ul Normal 1.4-6.5 [facility] Comment on above: Performed By: #### C BC #### [facility] [address] [place] [address] Dr. Charlotte Awan Neutrophils/100 WBC (Bld) 66.5 % Normal 43.0-75.0 [facility] Comment on above: Performed By: #### C BC #### [facility] [address] [place] [address] Dr. Charlotte Awan Platelet mean volume (Bld) [Entitic vol] 12.0 fL Normal 9.5-13.5 [facility] Comment on above: Performed By: #### C BC #### [facility] [address] [place] [address] Dr. Charlotte Awan PLT 132 103/ul Critically low 150-450 [facility] Comment on above: Performed By: #### C BC #### [facility] [address] [place] [address] Dr. Charlotte Awan RBC 4.28 106/ul Critically low 4.70-6.10 [facility] Comment on above: Performed By: #### C BC #### [facility] [address] [place] [address] Dr. Charlotte Awan WBC 7.0 103/ul Normal 4.0-11.0 [facility] Comment on above: Performed By: #### C BC #### [facility] [address] [place] [address] Dr. Charlotte Awan GLYCOHEMOGLOBIN A1Con 2021 ADA RECOMMENDATION SEE BELOW Normal [facility] Comment on above: Result Comment: ADA RECOMMENDED LIMIT 4.0 - 6.0 ADA THERAPEUTIC TARGET < 7.0 ACTION SUGGESTED > 7.0 Performed By: #### V ITSYLVESTER, PSASC #### [facility] [address] [place] [address] Dr. Charlotte Awan Glucose [Mass/Vol] 114 mg/dL Normal [facility] Comment on above: Performed By: #### V ITSYLVESTER, PSASC #### [facility] [address] [address] [address] Charlotte Awan HbA1c (Bld) [Mass fraction] 5.6 % Normal 4.5-6.2 [facility] Comment on above: Performed By: #### V JUSTIN, PSASC #### [facility] [address] [place] [address] Dr. Charlotte Awan LIPID PROFILEon 05-21-2022 CHOL-HDL RATIO NORM SEE BELOW Normal [facility] Comment on above: Result Comment: 3.3 - 4.4 LOW RISK 4.4 - 7.1 AVERAGE RISK 7.1 - 11.0 MODERATE RISK >11.0 HIGH RISK Performed By: #### L IPID, LIVER, BMP #### [facility] [address] [place] [address] Dr. Charlotte Awan Cholesterol [Mass/Vol] 110 mg/dL Normal <=200 [facility] Comment on above: Performed By: #### L IPID, LIVER, BMP #### [facility] [address] [place] [address] Dr. Charlotte Awan Cholesterol in HDL [Mass/Vol] 50 mg/dL Normal 40-60 [facility] Comment on above: Performed By: #### L IPID, LIVER, BMP #### [facility] [address] [place] [address] Dr. Charlotte Awan Cholesterol in LDL [Mass/Vol] 41.0 mg/dL Normal [facility] Comment on above: Performed By: #### L IPID, LIVER, BMP #### [facility] [address] [address] [address] Charlotte Awan Cholesterol.total/Chol esterol in HDL [Mass ratio] 2.2 {ratio} Normal [facility] Comment on above: Performed By: #### L IPID, LIVER, BMP #### [facility] [address] [address] [address] Charlotte Awan HDL NORMAL > or = 60 mg/dl - LO W CARDIOVASCULAR RISK <40 mg/dl - HIGH CARDIOVASCULAR RISK Normal [facility] Comment on above: Performed By: #### L IPID, LIVER, BMP #### [facility] [address] [address] [address] Charlotte Awan LDL CALC NORMAL SEE BELOW Normal [facility] Comment on above: Result Comment: <100 mg/dl OPTIMAL 100 - 129 mg/dl NEAR OR ABOVE OPTIMAL 130 - 159 mg/dl BORDERLINE HIGH 160 - 189 mg/dl HIGH >190 mg/dl VERY HIGH Performed By: #### L IPID, LIVER, BMP #### [facility] [address] [address] [address] Charlotte Awan Triglyceride [Mass/Vol] 95 mg/dL Normal <=150 [facility] Comment on above: Performed By: #### L IPID, LIVER, BMP #### [facility] [address] [address] [address] Charlotte Awan VLDL CALC 19.0 mg/dL Normal [facility] Comment on above: Performed By: #### L IPID, LIVER, BMP #### [facility] [address] [place] [address] Dr. Charlotte Awan LIVER PROFILEon 05-21-2022 Albumin [Mass/Vol] 2.9 g/dL Critically low 3.4-5.0 [facility] Comment on above: Performed By: #### L IPID, LIVER, BMP #### [facility] [address] [place] [address] Dr. Charlotte Awan Albumin/Globulin [Mass ratio] 0.9 {ratio} Normal [facility] Comment on above: Performed By: #### L IPID, LIVER, BMP #### [facility] [address] [address] [address] Charlotte Awan ALP [Catalytic activity/Vol] 70 U/L Normal 46-116 [facility] Comment on above: Performed By: #### L IPID, LIVER, BMP #### [facility] [address] [address] [address] Charlotte Awan ALT [Catalytic activity/Vol] 59 U/L Normal 16-63 [facility] Comment on above: Performed By: #### L IPID, LIVER, BMP #### [facility] [address] [address] [address] Charlotte Awan AST [Catalytic activity/Vol] 25 U/L Normal 15-37 [facility] Comment on above: Performed By: #### L IPID, LIVER, BMP #### [facility] [address] [place] [address] Dr. Charlotte Awan BILI, CONJUGATED 0.1 mg/dL Normal 0.0-0.2 [facility] Comment on above: Performed By: #### L IPID, LIVER, BMP #### [facility] [address] [place] [address] Dr. Charlotte Awan Bilirubin [Mass/Vol] 0.3 mg/dL Normal 0.2-1.0 [facility] Comment on above: Performed By: #### L IPID, LIVER, BMP #### [facility] [address] [place] [address] Dr. Charlotte Awan Globulin (S) [Mass/Vol] 3.3 g/dL Normal [facility] Comment on above: Performed By: #### L IPID, LIVER, BMP #### [facility] [address] [place] [address] Dr. Charlotte Awan Protein [Mass/Vol] 6.2 g/dL Critically low 6.4-8.2 [facility] Comment on above: Performed By: #### L IPID, LIVER, BMP #### [facility] [address] [address] [address] Charlotte Awan MICROALBUMIN, RAND URon 11-0 -2021 mALB 17.7 mg/L Normal <=30.0 [facility] Comment on above: Performed By: #### M ALBR #### [facility] [address] [place] [address] Dr. Charlotte Awan PROF CHEM 8 (BAS METB)on Anion gap [Moles/Vol] 9.9 mmol/L Normal [facility] Comment on above: Performed By: #### L IPID, LIVER, BMP #### [facility] [address] [place] [address] Dr. Charlotte Awan Calcium [Mass/Vol] 9.3 mg/dL Normal 8.5-10.1 [facility] Comment on above: Performed By: #### L IPID, LIVER, BMP #### [facility] [address] [place] [address] Dr. Charlotte Awan Chloride [Moles/Vol] 108 mmol/L Critically high 98-107 [facility] Comment on above: Performed By: #### L IPID, LIVER, BMP #### [facility] [address] [place] [address] Dr. Charlotte Awan CO2 [Moles/Vol] 26.1 mmol/L Normal 21.0-32.0 [facility] Comment on above: Performed By: #### L IPID, LIVER, BMP #### [facility] [address] [place] [address] Dr. Charlotte Awan Creatinine [Mass/Vol] 1.10 mg/dL Normal 0.70-1.30 [facility] Comment on above: Performed By: #### L IPID, LIVER, BMP #### [facility] [address] [place] [address] Dr. Charlotte Awan EGFR-AF SIERRA LEONEAN >60 Normal >=60 [facility] Comment on above: Performed By: #### L IPID, LIVER, BMP #### [facility] [address] [place] [address] Dr. Charlotte Awan EGFR-NON AF SIERRA LEONEAN >60 Normal >=60 [facility] Comment on above: Performed By: #### L IPID, LIVER, BMP #### [facility] [address] [place] [address] Dr. Charlotte Awan Glucose [Mass/Vol] 120 mg/dL Critically high 74-106 [facility] Comment on above: Performed By: #### L IPID, LIVER, BMP #### [facility] [address] [address] [address] Charlotte Awan Potassium [Moles/Vol] 4.0 mmol/L Normal 3.5-5.1 [facility] Comment on above: Performed By: #### L IPID, LIVER, BMP #### [facility] [address] [address] [address] Charlotte Awan Sodium [Moles/Vol] 140 mmol/L Normal 136-145 [facility] Comment on above: Performed By: #### L IPID, LIVER, BMP #### [facility] [address] [place] [address] Dr. Charlotte Awan Urea nitrogen [Mass/Vol] 21.0 mg/dL Critically high 7.0-18.0 [facility] Comment on above: Performed By: #### L IPID, LIVER, BMP #### [facility] [address] [place] [address] Dr. Charlotte Awan Urea nitrogen/Creatinine [Mass ratio] 19.1 mg/mg Normal [facility] Comment on above: Performed By: #### L IPID, LIVER, BMP #### [facility] [address] [place] [address] Dr. Charlotte Awan VITAMIN D 25 OHon 05-21-2022 VIT D 25-OH 17.9 ng/mL Normal [facility] Comment on above: Performed By: #### V ITAD, PSASC #### [facility] [address] [place] [address] Dr. Charlotte Awan VIT D RANGES SEE BELOW Normal [facility] Comment on above: Result Comment: <20 ng/mL Vit D deficient 20 - <30 ng/mL Vit D insufficient 30 - 100 ng/mL Vit D sufficient >100 ng/mL Potential Toxicity Performed By: #### V ITAD, PSASC #### [facility] [address] [place] [address] Dr. Charlotte Awan Creatinine and Glomerular fi ltration rate.predicted panel (S/P/Bld)Ordered By: Tani Vargas on 05-20-2022 Creatinine [Mass/Vol] 1.21 mg/dL 0.64-1.27 [facility] Estimated glomerular filtrat ion rate (GFR) non- AmericanOrdered By: Tani Vargas on 05-20-2022 GFR/1.73 sq M.predicted among non-blacks MDRD (S/P/Bld) [Vol rate/Area] 59 mL/Min [facility] No Panel InformationOrdered By: Tani Vargas on 05-20-2022 Estimated GFR () > 60 mL/Min [facility] Comment on above: GFR estimated refere nce range: According to KDOQI guidelines, <60 ml/min/1.73m2 is sufficient to diagnose a patient with chronic kidney disease. Pharmacy Creatinine Clearance (Chem 44.91 [facility] Serum or plasma urea nitroge n measurement (mass/volume)Ordered By: Tani Vargas on 05-20-2022 Urea nitrogen [Mass/Vol] 21 mg/dL 04-10 [facility] Albumin [Mass/volume] in Ser um or PlasmaOrdered By: Reji Barrientos on 03-30-2022 Albumin [Mass/Vol] 3.5 g/dL 3.2-5.5 [facility] Basophils Auto (Bld) [#/Vol] Ordered By: Reji Barrientos on 03-30-2022 Basophils (Bld) [#/Vol] 0.2 10*3/uL 0.0-0.2 [facility] Basophils/100 WBC Auto (Bld) Ordered By: Reji Barrientos on 03-30-2022 Basophils/100 WBC (Bld) 1.1 % . [facility] Blood hemoglobin measurement (mass/volume)Ordered By: eRji Barrientos on 03-30-2022 Hemoglobin (Bld) [Mass/Vol] 12.3 g/dL 13.0-17.0 [facility] Blood leukocytes automated c ount (number/volume)Ordered By: Reji Barrientos on 03-30-2022 WBC (Bld) [#/Vol] 14.4 10*3/uL 4.5-11.0 [facility] Creatinine and Glomerular fi ltration rate.predicted panel (S/P/Bld)Ordered By: Reji Barrientos on 03-30-2022 Creatinine [Mass/Vol] 1.09 mg/dL 0.64-1.27 [facility] Direct bilirubin measurement Ordered By: Reji Barrientos on 03-30-2022 Bilirubin.direct [Mass/Vol] mg/dL 0.0-0.4 [facility] Eosinophils Auto (Bld) [#/Vo l]Ordered By: Reji Barrientos on 03-30-2022 Eosinophils (Bld) [#/Vol] 0.6 10*3/uL 0.0-0.45 [facility] Eosinophils/100 WBC Auto (Bl d)Ordered By: Reji Barrientos on 03-30-2022 Eosinophils/100 WBC (Bld) 3.8 % . [facility] Erythrocyte distribution wid th Auto (RBC) [Ratio]Ordered By: Reji Barrientos on 03-30-2022 Erythrocyte distribution width (RBC) [Ratio] 18.0 % 12.0-14.8 [facility] Estimated glomerular filtrat ion rate (GFR) non- AmericanOrdered By: Reji Barrientos on 03-30-2022 GFR/1.73 sq M.predicted among non-blacks MDRD (S/P/Bld) [Vol rate/Area] > 60 mL/Min [facility] Globulin Calc (S) [Mass/Vol] Ordered By: Reji Barrientos on 03-30-2022 Globulin (S) [Mass/Vol] 3.4 g/dL [facility] Glucose Glucometer (BldC) [M ass/Vol]Ordered By: Yemi Silverio on 03-30-2022 Glucose [Mass/Vol] 127 mg/dL [facility] Comment on above: Random Glucose Refer ence Range is dependent on time and content of last meal. Glucose of more than 200 mg/dL in a nonstressed, ambulatory subject supports the diagnosis of Diabetes Mellitus. Hematocrit Auto (Bld) [Volum e fraction]Ordered By: Reji Barrientos on 03-30-2022 Hematocrit (Bld) [Volume fraction] 39.4 % 38.8-50.0 [facility] - Chemistry and C hemistry - challengeOrdered By: Reji Barrientos on 03-30-2022 Lipase [Catalytic activity/Vol] 38.0 U/L 22-51 [facility] - Hematology and Cell countsOrdered By: Reji Barrientos on 03-30-2022 Nucleated RBC/100 WBC (Bld) [Ratio] 0.1 % 0-0.5 [facility] Lymphocytes Auto (Bld) [#/Vo l]Ordered By: Reji Barrientos on 03-30-2022 Lymphocytes (Bld) [#/Vol] 3.9 10*3/uL 1.00-4.8 [facility] Lymphocytes/100 WBC Auto (Bl d)Ordered By: Reji Barrientos on 03-30-2022 Lymphocytes/100 WBC (Bld) 27.1 % . [facility] MCH Auto (RBC) [Entitic mass ]Ordered By: Reji Barrientos on 03-30-2022 MCH (RBC) [Entitic mass] 26.7 pg 27.5-35.2 [facility] MCHC Auto (RBC) [Mass/Vol]Or dered By: Reji Barrientos on 03-30-2022 MCHC (RBC) [Mass/Vol] 31.3 g/dL 32.5-35.6 [facility] MCV Auto (RBC) [Entitic vol] Ordered By: Reji Barrientos on 03-30-2022 MCV (RBC) [Entitic vol] 85.4 fL 83.5-101 [facility] Monocytes Auto (Bld) [#/Vol] Ordered By: Reji Barrientos on 03-30-2022 Monocytes (Bld) [#/Vol] 0.6 10*3/uL 0.0-0.8 [facility] Monocytes/100 WBC Auto (Bld) Ordered By: Reji Barrientos on 03-30-2022 Monocytes/100 WBC (Bld) 4.5 % . [facility] Neutrophils Auto (Bld) [#/Vo l]Ordered By: Reji Barrientos on 03-30-2022 Neutrophils (Bld) [#/Vol] 9.1 10*3/uL 1.8-7.7 [facility] Neutrophils/100 WBC Auto (Bl d)Ordered By: Reji Barrientos on 03-30-2022 Neutrophils/100 WBC (Bld) 63.5 % . [facility] No Panel InformationOrdered By: Yemi Silverio on 03-30-2022 Bedside Glucose Comment Glu2: cleaned meter [facility] No Panel InformationOrdered By: Reji Barrientos on 03-30-2022 Estimated GFR () > 60 mL/Min [facility] Comment on above: GFR estimated refere nce range: According to KDOQI guidelines, <60 ml/min/1.73m2 is sufficient to diagnose a patient with chronic kidney disease. Pharmacy Creatinine Clearance (Chem 49.85 [facility] Platelet mean volume Auto (B ld) [Entitic vol]Ordered By: Reji Barrientos on 03-30-2022 Platelet mean volume (Bld) [Entitic vol] 10.4 fL 6.6-10.1 [facility] Platelets Auto (Bld) [#/Vol] Ordered By: Reji Barrientos on 03-30-2022 Platelets (Bld) [#/Vol] 232 10*3/uL 150-450 [facility] Protein [Mass/volume] in Ser um or PlasmaOrdered By: Reji Barrientos on 03-30-2022 Protein [Mass/Vol] 6.9 g/dL 6.1-7.9 [facility] RBC Auto (Bld) [#/Vol]Ordere d By: Reji Barrientos on 03-30-2022 RBC (Bld) [#/Vol] 4.61 10*6/uL 3.90-5.60 [facility] Serum or plasma alanine jackson otransferase measurement without P-5'-P (enzymatic activiOrdered By: Reji Barrientos on 03-30-2022 ALT No additional P-5'-P [Catalytic activity/Vol] 16 U/L 10-60 [facility] Serum or plasma albumin/glob ulin mass ratioOrdered By: Reji Barrientos on 03-30-2022 Albumin/Globulin [Mass ratio] 1.0 {ratio} [facility] Serum or plasma alkaline rojas sphatase measurement (enzymatic activity/volume)Ordered By: Reji Barrientos on 03-30-2022 ALP [Catalytic activity/Vol] 81 U/L 32-92 [facility] Serum or plasma anion gap de terminationOrdered By: Reji Barrientos on 03-30-2022 Anion gap [Moles/Vol] 16.1 mmol/L 6.0-15.0 [facility] Serum or plasma aspartate am inotransferase measurement (enzymatic activity/volume)Ordered By: Reji Barrientos on 03-30-2022 AST [Catalytic activity/Vol] 19 U/L 10-42 [facility] Serum or plasma calcium charley urement (mass/volume)Ordered By: Reji Barrientos on 03-30-2022 Calcium [Mass/Vol] 10.1 mg/dL 8.2-10.2 [facility] Serum or plasma chloride prem surement (moles/volume)Ordered By: Reji Barrientos on 03-30-2022 Chloride [Moles/Vol] 103 mmol/L 95-114 [facility] Serum or plasma glucose charley urement (mass/volume)Ordered By: Reji Barrientos on 03-30-2022 Glucose [Mass/Vol] 174 mg/dL 70-100 [facility] Comment on above: ADA recommended refe rence [...] Reji Barrientos on 03-30-2022 Bilirubin.indirect [Mass/Vol] TNP [facility] Comment on above: Test not performed Serum or plasma potassium me asurement (moles/volume)Ordered By: Reji Barrientos on 03-30-2022 Potassium [Moles/Vol] 3.3 mmol/L 3.5-5.1 [facility] Serum or plasma sodium measu rement (moles/volume)Ordered By: Reji Barrientos on 03-30-2022 Sodium [Moles/Vol] 140 mmol/L 136-146 [facility] Serum or plasma total biliru bin measurement (mass/volume)Ordered By: Reji Barrientos on 03-30-2022 Bilirubin [Mass/Vol] 0.6 mg/dL 0.3-1.2 [facility] Serum or plasma total carbon dioxide measurement (moles/volume)Ordered By: Reji Barrientos on 03-30-2022 CO2 [Moles/Vol] 24.2 mmol/L 22.0-30.0 [facility] Serum or plasma urea nitroge n measurement (mass/volume)Ordered By: Reji Barrientos on 03-30-2022 Urea nitrogen [Mass/Vol] 23 mg/dL 04-10 [facility] Activated partial thrombopla stin time (aPTT) in platelet poor plasma by coagulation aOrdered By: Izzy Connell on 03-16-2022 aPTT Coag (PPP) [Time] 33.2 s 25.1-36.5 [facility] Albumin [Mass/volume] in Ser um or PlasmaOrdered By: Izzy Connell on 03-16-2022 Albumin [Mass/Vol] 3.4 g/dL 3.2-5.5 [facility] Automated erythrocytes count in urine sediment (number/area)Ordered By: Izzy Connell on 03-16-2022 RBC Auto (Urine sed) [#/Area] 1-2 [HPF] 0-4 [facility] Automated leukocytes count i n urine sediment (number/area)Ordered By: Izzy Connell on 03-16-2022 WBC Auto (Urine sed) [#/Area] 0-1 [HPF] 0-4 [facility] Basophils Auto (Bld) [#/Vol] Ordered By: Izzy Connell on 03-16-2022 Basophils (Bld) [#/Vol] 0.1 10*3/uL 0.0-0.2 [facility] Basophils/100 WBC Auto (Bld) Ordered By: Izzy Connell on 03-16-2022 Basophils/100 WBC (Bld) 1.1 % . [facility] Bilirubin Test strip Ql (U)O rdered By: Izzy Connell on 03-16-2022 Bilirubin Ql (U) Negative Negative [facility] Blood hemoglobin measurement (mass/volume)Ordered By: Izzy Connell on 03-16-2022 Hemoglobin (Bld) [Mass/Vol] 11.9 g/dL 13.0-17.0 [facility] Blood leukocytes automated c ount (number/volume)Ordered By: Izzy Connell on 03-16-2022 WBC (Bld) [#/Vol] 8.9 10*3/uL 4.5-11.0 [facility] Color Auto (U)Ordered By: Selvin Connell on 03-16-2022 Color (U) Yellow Yellow [facility] Creatinine and Glomerular fi ltration rate.predicted panel (S/P/Bld)Ordered By: Izzy Connell on 03-16-2022 Creatinine [Mass/Vol] 0.89 mg/dL 0.64-1.27 [facility] Eosinophils Auto (Bld) [#/Vo l]Ordered By: Izzy Connell on 03-16-2022 Eosinophils (Bld) [#/Vol] 0.4 10*3/uL 0.0-0.45 [facility] Eosinophils/100 WBC Auto (Bl d)Ordered By: Izzy Connell on 03-16-2022 Eosinophils/100 WBC (Bld) 4.8 % . [facility] Erythrocyte distribution wid th Auto (RBC) [Ratio]Ordered By: Izzy Connell on 03-16-2022 Erythrocyte distribution width (RBC) [Ratio] 18.1 % 12.0-14.8 [facility] Estimated glomerular filtrat ion rate (GFR) non- AmericanOrdered By: Izzy Connell on 03-16-2022 GFR/1.73 sq M.predicted among non-blacks MDRD (S/P/Bld) [Vol rate/Area] > 60 mL/Min [facility] Globulin Calc (S) [Mass/Vol] Ordered By: Izzy Connell on 03-16-2022 Globulin (S) [Mass/Vol] 3.1 g/dL [facility] Hematocrit Auto (Bld) [Volum e fraction]Ordered By: Izzy Connell on 03-16-2022 Hematocrit (Bld) [Volume fraction] 37.3 % 38.8-50.0 [facility] Ketones Auto test strip (U) [Mass/Vol]Ordered By: Izzy Connell on 03-16-2022 Ketones (U) [Mass/Vol] Negative Negative [facility] Laboratory - Chemistry and C hemistry - challengeOrdered By: Izzy Connell on 03-16-2022 Lipase [Catalytic activity/Vol] 32.0 U/L 22-51 [facility] Laboratory - CoagulationOrde red By: Izzy Connell on 03-16-2022 PT Coag (PPP) [Time] 11.7 s 9.0-12.9 [facility] Laboratory - Hematology and Cell countsOrdered By: Izzy Connell on 03-16-2022 Nucleated RBC/100 WBC (Bld) [Ratio] 0.0 % 0-0.5 [facility] Laboratory - UrinalysisOrder ed By: Izzy Connell on 03-16-2022 Hyaline casts LM Ql (Urine sed) None seen [LPF] 0-8 [facility] Lymphocytes Auto (Bld) [#/Vo l]Ordered By: Izzy Connell on 03-16-2022 Lymphocytes (Bld) [#/Vol] 2.0 10*3/uL 1.00-4.8 [facility] Lymphocytes/100 WBC Auto (Bl d)Ordered By: Izzy Connell on 03-16-2022 Lymphocytes/100 WBC (Bld) 22.9 % . [facility] MCH Auto (RBC) [Entitic mass ]Ordered By: Izzy Connell on 03-16-2022 MCH (RBC) [Entitic mass] 27.0 pg 27.5-35.2 [facility] MCHC Auto (RBC) [Mass/Vol]Or dered By: Izzy Connell on 03-16-2022 MCHC (RBC) [Mass/Vol] 32.0 g/dL 32.5-35.6 [facility] MCV Auto (RBC) [Entitic vol] Ordered By: Izzy Connell on 03-16-2022 MCV (RBC) [Entitic vol] 84.5 fL 83.5-101 [facility] Monocytes Auto (Bld) [#/Vol] Ordered By: Izzy Connell on 03-16-2022 Monocytes (Bld) [#/Vol] 0.5 10*3/uL 0.0-0.8 [facility] Monocytes/100 WBC Auto (Bld) Ordered By: Izzy Connell on 03-16-2022 Monocytes/100 WBC (Bld) 5.6 % . [facility] Neutrophils Auto (Bld) [#/Vo l]Ordered By: Izzy Connell on 03-16-2022 Neutrophils (Bld) [#/Vol] 5.8 10*3/uL 1.8-7.7 [facility] Neutrophils/100 WBC Auto (Bl d)Ordered By: Izzy Connell on 03-16-2022 Neutrophils/100 WBC (Bld) 65.6 % . [facility] Nitrite Test strip Ql (U)Ord ered By: Izzy Connell on 03-16-2022 Nitrite Ql (U) Negative Negative [facility] No Panel InformationOrdered By: Izzy Connell on 03-16-2022 Estimated GFR () > 60 mL/Min [facility] Comment on above: GFR estimated refere nce range: According to KDOQI guidelines, <60 ml/min/1.73m2 is sufficient to diagnose a patient with chronic kidney disease. Pharmacy Creatinine Clearance (Chem 61.05 [facility] Platelet mean volume Auto (B ld) [Entitic vol]Ordered By: Izzy Connell on 03-16-2022 Platelet mean volume (Bld) [Entitic vol] 10.3 fL 6.6-10.1 [facility] Platelet poor plasma interna tional normalized ratio (INR) by coagulation assay (relatOrdered By: Izzy Connell on 03-16-2022 INR Coag (PPP) [Relative time] 1.0 {INR} [facility] Comment on above: INR Therapeutic Rang e [...] 03-16-2022 Platelets (Bld) [#/Vol] 179 10*3/uL 150-450 [facility] Protein Auto test strip (U) [Mass/Vol]Ordered By: Izzy Connell on 03-16-2022 Protein (U) [Mass/Vol] 30 mg/dL Negative [facility] Protein [Mass/volume] in Ser um or PlasmaOrdered By: Izzy Connell on 03-16-2022 Protein [Mass/Vol] 6.5 g/dL 6.1-7.9 [facility] RBC Auto (Bld) [#/Vol]Ordere d By: Izzy Connell on 03-16-2022 RBC (Bld) [#/Vol] 4.41 10*6/uL 3.90-5.60 [facility] Serum or plasma alanine jackson otransferase measurement without P-5'-P (enzymatic activiOrdered By: Izzy Connell on 03-16-2022 ALT No additional P-5'-P [Catalytic activity/Vol] 12 U/L 10-60 [facility] Serum or plasma albumin/glob ulin mass ratioOrdered By: Izzy Connell on 03-16-2022 Albumin/Globulin [Mass ratio] 1.1 {ratio} [facility] Serum or plasma alkaline rojas sphatase measurement (enzymatic activity/volume)Ordered By: Izzy Connell on 03-16-2022 ALP [Catalytic activity/Vol] 74 U/L 32-92 [facility] Serum or plasma anion gap de terminationOrdered By: Izzy Connell on 03-16-2022 Anion gap [Moles/Vol] 11.2 mmol/L 6.0-15.0 [facility] Serum or plasma aspartate am inotransferase measurement (enzymatic activity/volume)Ordered By: Izzy Connell on 03-16-2022 AST [Catalytic activity/Vol] 15 U/L 10-42 [facility] Serum or plasma calcium charley urement (mass/volume)Ordered By: Izzy Connell on 03-16-2022 Calcium [Mass/Vol] 9.5 mg/dL 8.2-10.2 [facility] Serum or plasma chloride prem surement (moles/volume)Ordered By: Izzy Connell on 03-16-2022 Chloride [Moles/Vol] 106 mmol/L 95-114 [facility] Serum or plasma glucose charley urement (mass/volume)Ordered By: Izzy Connell on 03-16-2022 Glucose [Mass/Vol] 148 mg/dL 70-100 [facility] Comment on above: ADA recommended refe rence [...] Potassium [Moles/Vol] 3.6 mmol/L 3.5-5.1 [facility] Serum or plasma sodium measu rement (moles/volume)Ordered By: Izzy Connell on 03-16-2022 Sodium [Moles/Vol] 139 mmol/L 136-146 [facility] Serum or plasma total biliru bin measurement (mass/volume)Ordered By: Izzy Connell on 03-16-2022 Bilirubin [Mass/Vol] 0.5 mg/dL 0.3-1.2 [facility] Serum or plasma total carbon dioxide measurement (moles/volume)Ordered By: Izzy Connell on 03-16-2022 CO2 [Moles/Vol] 25.4 mmol/L 22.0-30.0 [facility] Serum or plasma urea nitroge n measurement (mass/volume)Ordered By: Izzy Connell on 03-16-2022 Urea nitrogen [Mass/Vol] 13 mg/dL 9-23 [facility] Specific gravity Auto test s trip (U) [Rel density]Ordered By: Izzy Connell on 03-16-2022 Specific gravity (U) [Rel density] 1.013 1.001-1.03 0 [facility] Squamous epithelial cells de tection in urine sediment by light microscopyOrdered By: Izzy Connell on 03-16-2022 Epithelial cells.squamous LM Ql (Urine sed) None seen [HPF] 0-2 [facility] Troponin I.cardiac [Mass/vol ume] in Serum or Plasma by High sensitivity methodOrdered By: Izzy Connell on 03-16-2022 Troponin I.cardiac High sensitivity method [Mass/Vol] 11 pg/mL 0-20 [facility] Urine bacteria detection by automated methodOrdered By: Izzy Connell on 03-16-2022 Bacteria Auto Ql (U) None seen None Seen [facility] Urine clarity by refractomet ry automatedOrdered By: Izzy Connell on 03-16-2022 Clarity Refractometry automated (U) Clear Clear [facility] Urine glucose measurement by automated test strip (mass/volume)Ordered By: Izzy Connell on 03-16-2022 Glucose Auto test strip (U) [Mass/Vol] Normal mg/dL Normal [facility] Urine hemoglobin detection b y automated test stripOrdered By: Izzy Connell on 03-16-2022 Hemoglobin Auto test strip Ql (U) Negative Negative [facility] Urine leukocyte esterase det ection by automated test stripOrdered By: Izzy Connell on 03-16-2022 Leukocyte esterase Auto test strip Ql (U) Negative Negative [facility] Urobilinogen Auto test strip (U) [Mass/Vol]Ordered By: Izzy Connell on 03-16-2022 Urobilinogen (U) [Mass/Vol] Normal mg/dL Normal [facility] pH Auto test strip (U)Ordere d By: Izzy Connell on 03-16-2022 pH (U) 7.0 [pH] 5.0-9.0 [facility] COVID-19 Positive/NegativeOr dered By: Yemi Silverio on 02-24-2022 SARS-CoV-2 (COVID-19) N gene GLORIA+probe Ql (Resp) Positive Negative [facility] Comment on above: Positive results katie l only be called to Providers for the following groups of patients: Pre-Surgical Testing, Emergency Room, and Inpatients. Testing for SARS-CoV-2 by RT-PCR This test was developed and its performance characteristics determined by [employer] and validated at the [facility]. This test has not been FDA cleared [...] developed and its performance characteristics determined by [employer] and validated at the [facility]. This test has not been FDA cleared [...] on 02-10-2022 Albumin [Mass/Vol] 3.1 g/dL 3.2-5.5 [facility] Basophils Auto (Bld) [#/Vol] Ordered By: Reji Barrientos on 02-10-2022 Basophils (Bld) [#/Vol] 0.0 10*3/uL 0.0-0.2 [facility] Basophils/100 WBC Auto (Bld) Ordered By: Reji Barrientos on 02-10-2022 Basophils/100 WBC (Bld) 0.3 % . [facility] Blood hemoglobin measurement (mass/volume)Ordered By: Reji Barrientos on 02-10-2022 Hemoglobin (Bld) [Mass/Vol] 12.4 g/dL 13.0-17.0 [facility] Blood leukocytes automated c ount (number/volume)Ordered By: Reji Barrientos on 02-10-2022 WBC (Bld) [#/Vol] 10.9 10*3/uL 4.5-11.0 [facility] COVID-19 Positive/NegativeOr dered By: Reji Barrientos on 02-10-2022 SARS-CoV-2 (COVID-19) N gene GLORIA+probe Ql (Resp) Negative Negative [facility] Comment on above: Testing for SARS-CoV -2 by RT-PCR This test was developed and its performance characteristics determined by [employer] and validated at the [facility]. This test has not been FDA cleared [...] (COVID-19) Ag IA.rapid Ql (Resp) Negative Negative [facility] Comment on above: This is a duplicate Bety SARS Antigen (PRISCA) result to be used for statistical tracking purpose only. Creatinine and Glomerular fi ltration rate.predicted panel (S/P/Bld)Ordered By: Reji Barrientos on 02-10-2022 Creatinine [Mass/Vol] 1.12 mg/dL 0.64-1.27 [facility] Direct bilirubin measurement Ordered By: Reji Barrientos on 02-10-2022 Bilirubin.direct [Mass/Vol] 0.2 mg/dL 0.0-0.4 [facility] Eosinophils Auto (Bld) [#/Vo l]Ordered By: Reji Barrientos on 02-10-2022 Eosinophils (Bld) [#/Vol] 0.6 10*3/uL 0.0-0.45 [facility] Eosinophils/100 WBC Auto (Bl d)Ordered By: Reji Barrientos on 02-10-2022 Eosinophils/100 WBC (Bld) 5.0 % . [facility] Erythrocyte distribution wid th Auto (RBC) [Ratio]Ordered By: Reji Barrientos on 02-10-2022 Erythrocyte distribution width (RBC) [Ratio] 17.3 % 12.0-14.8 [facility] Estimated glomerular filtrat ion rate (GFR) non- AmericanOrdered By: Reji Barrientos on 02-10-2022 GFR/1.73 sq M.predicted among non-blacks MDRD (S/P/Bld) [Vol rate/Area] > 60 mL/Min [facility] Globulin Calc (S) [Mass/Vol] Ordered By: Reji Barrientos on 02-10-2022 Globulin (S) [Mass/Vol] 3.4 g/dL [facility] Hematocrit Auto (Bld) [Volum e fraction]Ordered By: Reji Barrientos on 02-10-2022 Hematocrit (Bld) [Volume fraction] 38.4 % 38.8-50.0 [facility] Laboratory - Chemistry and C hemistry - challengeOrdered By: Reji Barrientos on 02-10-2022 Lipase [Catalytic activity/Vol] 38.0 U/L 22-51 [facility] Laboratory - Hematology and Cell countsOrdered By: Reji Barrientos on 02-10-2022 Nucleated RBC/100 WBC (Bld) [Ratio] 0.1 % 0-0.5 [facility] Laboratory - Microbiology an d Antimicrobial susceptibilityOrdered By: Reji Barrientos on 02-10-2022 SARS-CoV-2 (COVID-19) RNA GLORIA+probe Ql (Unsp spec) N/A [facility] Lymphocytes Auto (Bld) [#/Vo l]Ordered By: Reji Barrientos on 02-10-2022 Lymphocytes (Bld) [#/Vol] 4.2 10*3/uL 1.00-4.8 [facility] Lymphocytes/100 WBC Auto (Bl d)Ordered By: Reji Barrientos on 02-10-2022 Lymphocytes/100 WBC (Bld) 38.8 % . [facility] MCH Auto (RBC) [Entitic mass ]Ordered By: Reji Barrientos on 02-10-2022 MCH (RBC) [Entitic mass] 26.7 pg 27.5-35.2 [facility] MCHC Auto (RBC) [Mass/Vol]Or dered By: Reji Barrientos on 02-10-2022 MCHC (RBC) [Mass/Vol] 32.4 g/dL 32.5-35.6 [facility] MCV Auto (RBC) [Entitic vol] Ordered By: Reji Barrientos on 02-10-2022 MCV (RBC) [Entitic vol] 82.4 fL 83.5-101 [facility] Monocytes Auto (Bld) [#/Vol] Ordered By: Reji Barrientos on 02-10-2022 Monocytes (Bld) [#/Vol] 0.6 10*3/uL 0.0-0.8 [facility] Monocytes/100 WBC Auto (Bld) Ordered By: Reji Barrientos on 02-10-2022 Monocytes/100 WBC (Bld) 5.9 % . [facility] Neutrophils Auto (Bld) [#/Vo l]Ordered By: Reji Barrientos on 02-10-2022 Neutrophils (Bld) [#/Vol] 5.5 10*3/uL 1.8-7.7 [facility] Neutrophils/100 WBC Auto (Bl d)Ordered By: Reji Barrientos on 02-10-2022 Neutrophils/100 WBC (Bld) 50.0 % . [facility] No Panel InformationOrdered By: Reji Barrientos on 02-10-2022 Estimated GFR () > 60 mL/Min [facility] Comment on above: GFR estimated refere nce range: According to KDOQI guidelines, <60 ml/min/1.73m2 is sufficient to diagnose a patient with chronic kidney disease. Pharmacy Creatinine Clearance (Chem 50.46 [facility] SARS Antigen (LFIA) [facility] Platelet mean volume Auto (B ld) [Entitic vol]Ordered By: Reji Barrientos on 02-10-2022 Platelet mean volume (Bld) [Entitic vol] 9.8 fL 6.6-10.1 [facility] Platelets Auto (Bld) [#/Vol] Ordered By: Reji Barrientos on 02-10-2022 Platelets (Bld) [#/Vol] 240 10*3/uL 150-450 [facility] Protein [Mass/volume] in Ser um or PlasmaOrdered By: Reji Barrientos on 02-10-2022 Protein [Mass/Vol] 6.5 g/dL 6.1-7.9 [facility] RBC Auto (Bld) [#/Vol]Ordere d By: Reji Barrientos on 02-10-2022 RBC (Bld) [#/Vol] 4.66 10*6/uL 3.90-5.60 [facility] Serum or plasma alanine jackson otransferase measurement without P-5'-P (enzymatic activiOrdered By: Reji Barrientos on 02-10-2022 ALT No additional P-5'-P [Catalytic activity/Vol] 11 U/L 10-60 [facility] Serum or plasma albumin/glob ulin mass ratioOrdered By: Reji Barrientos on 02-10-2022 Albumin/Globulin [Mass ratio] 0.9 {ratio} [facility] Serum or plasma alkaline rojas sphatase measurement (enzymatic activity/volume)Ordered By: Reji Barrientos on 02-10-2022 ALP [Catalytic activity/Vol] 87 U/L 32-92 [facility] Serum or plasma aspartate am inotransferase measurement (enzymatic activity/volume)Ordered By: Reji Barrientos on 02-10-2022 AST [Catalytic activity/Vol] 17 U/L 10-42 [facility] Serum or plasma calcium charley urement (mass/volume)Ordered By: Reji Barrientos on 02-10-2022 Calcium [Mass/Vol] 9.7 mg/dL 8.2-10.2 [facility] Serum or plasma chloride prem surement (moles/volume)Ordered By: Reji Barrientos on 02-10-2022 Chloride [Moles/Vol] 105 mmol/L 95-114 [facility] Serum or plasma glucose charley urement (mass/volume)Ordered By: Reji Barrientos on 02-10-2022 Glucose [Mass/Vol] 116 mg/dL 70-100 [facility] Comment on above: ADA recommended refe rence range Random Glucose Reference Range is dependent on time and content of last meal. Glucose of more than 200 mg/dL in a nonstressed, ambulatory subject supports the diagnosis of Diabetes Mellitus. Serum or plasma non-glucuron idated bilirubin measurement (mass/volume)Ordered By: Reji Barrientos on 02-10-2022 Bilirubin.indirect [Mass/Vol] 0.4 mg/dL [facility] Serum or plasma potassium me asurement (moles/volume)Ordered By: Reji Barrientos on 02-10-2022 Potassium [Moles/Vol] 3.7 mmol/L 3.5-5.1 [facility] Serum or plasma sodium measu rement (moles/volume)Ordered By: Reji Barrientos on 02-10-2022 Sodium [Moles/Vol] 139 mmol/L 136-146 [facility] Serum or plasma total biliru bin measurement (mass/volume)Ordered By: Reji Barrientos on 02-10-2022 Bilirubin [Mass/Vol] 0.6 mg/dL 0.3-1.2 [facility] Serum or plasma total carbon dioxide measurement (moles/volume)Ordered By: Reji Barrientos on 02-10-2022 CO2 [Moles/Vol] 24.4 mmol/L 22.0-30.0 [facility] Serum or plasma urea nitroge n measurement (mass/volume)Ordered By: Reji Barrientos on 02-10-2022 Urea nitrogen [Mass/Vol] 15 mg/dL 9- [facility] Tobacco Screening.on 022 Adult depression screening assessment No [facility] [place] [address] DO Work Phone: Fall risk assessment a) No falls within the last year [facility] [place] [address] DO Work Phone: Tobacco use status CP a) Yes [facility] [address] DO Work Phone: Tobacco Screening. Yes [facility] [address] DO Work Phone: Vital Signs Date Time Vital Sign Value Performing Clinician Facility 12-06-2024 07:28-0400 Body height 167.6 cm Mk Garcia MD Work Phone: [facility] 12-06-2024 07:28-0400 Body mass index (BMI) [Ratio] 29.38 kg/m2 Mk Garcia MD Work Phone: [facility] 12-06-2024 07:28-0400 Body temperature 97.81 [degF] Mk Garcia MD Work Phone: [facility] 12-06-2024 07:28-0400 Body weight 82.56 kg Mk Garcia MD Work Phone: [facility] 12-06-2024 07:28-0400 Diastolic blood pressure 72 mm[Hg] Mk Garcia MD Work Phone: [facility] 12-06-2024 07:28-0400 Heart rate 77 /min Mk Garcia MD Work Phone: [facility] 12-06-2024 07:28-0400 Respiratory rate 20 /min Mk Garcia MD Work Phone: [facility] 12-06-2024 07:28-0400 SaO2% (BldA) [Mass fraction] 98 % Mk Garcia MD Work Phone: [facility] 12-06-2024 07:28-0400 Systolic blood pressure 128 mm[Hg] Mk Garcia MD Work Phone: [facility] 11-14-2024 10:17-0400 Body height 167.6 cm Deirdre Calles [employer] Work Phone: [facility] 11-14-2024 10:17-0400 Body mass index (BMI) [Ratio] 28.73 kg/m2 Deirdre Calles [employer] SAL[employer] ENG[employer] Work Phone: [facility] 11-14-2024 10:17-0400 Body weight 80.74 kg Deirdre Calles [employer] SALES ENGINEER-[employer] Work Phone: [facility] 11-14-2024 10:17-0400 Diastolic blood pressure 80 mm[Hg] Deirdre Calles [employer] SALES ENGINEER-[employer] Work Phone: [facility] 11-14-2024 10:17-0400 Heart rate 62 /min Deirdre Calles [employer] SAL[employer] ENGINEER-[employer] Work Phone: [facility] 11-14-2024 10:17-0400 Systolic blood pressure 110 mm[Hg] Deirdre Calles [employer] SALES ENGINEER-[employer] Work Phone: [facility] 08-28-2024 08:59-0500 Body height 170.18 cm [facility] 08-28-2024 08:59-0500 Body mass index (BMI) [Ratio] 25.9 kg/m2 [facility] 08-28-2024 08:59-0500 Body temperature 98.5 [degF] [facility] 08-28-2024 08:59-0500 Body weight 75.29 kg [facility] 08-28-2024 08:59-0500 Diastolic blood pressure 80 mm[Hg] [facility] 08-28-2024 08:59-0500 Heart rate 63 /min [facility] 08-28-2024 08:59-0500 SaO2% (BldA) [Mass fraction] 96 % [facility] [facility] 08-28-2024 08:59-0500 Systolic blood pressure 124 mm[Hg] [facility] 05-10-2024 11:18-0400 Body height 165.1 cm Bonifacio Stern DO Work Phone: [facility] 05-10-2024 11:18-0400 Body mass index (BMI) [Ratio] 27.62 kg/m2 Bonifacio Stern DO Work Phone: [facility] 05-10-2024 11:18-0400 Body weight 75.3 kg Bonifacio Stern DO Work Phone: [facility] 05-10-2024 11:18-0400 Diastolic blood pressure 90 mm[Hg] Bonifacio Stern DO Work Phone: [facility] 05-10-2024 11:18-0400 Heart rate 60 /min Bonifacio Stern DO Work Phone: [facility] 05-10-2024 11:18-0400 Systolic blood pressure 142 mm[Hg] Bonifacio Stern DO Work Phone: [facility] 04-11-2024 14:13-0400 Body height 167.6 cm Mk Garcia MD Work Phone: [facility] 04-11-2024 14:13-0400 Body mass index (BMI) [Ratio] 26.79 kg/m2 Mk Garcia MD Work Phone: [facility] 04-11-2024 14:13-0400 Body temperature 97.5 [degF] Mk Garcia MD Work Phone: [facility] 04-11-2024 14:13-0400 Body weight 75.3 kg Mk Garcia MD Work Phone: [facility] 04-11-2024 14:13-0400 Diastolic blood pressure 56 mm[Hg] Mk Garcia MD Work Phone: [facility] 04-11-2024 14:13-0400 Heart rate 74 /min Mk Garcia MD Work Phone: [facility] 04-11-2024 14:13-0400 Respiratory rate 16 /min Mk Garcia MD Work Phone: [facility] 04-11-2024 14:13-0400 SaO2% (BldA) [Mass fraction] 97 % Mk Garcia MD Work Phone: [facility] 04-11-2024 14:13-0400 Systolic blood pressure 100 mm[Hg] Mk Garcia MD Work Phone: [facility] 03-14-2024 14:47-0400 Body temperature 97.7 [degF] Mk Garcia MD Work Phone: [facility] 03-14-2024 14:47-0400 Diastolic blood pressure 62 mm[Hg] Mk Garcia MD Work Phone: [facility] 03-14-2024 14:47-0400 Heart rate 72 /min Mk Garcia MD Work Phone: [facility] 03-14-2024 14:47-0400 SaO2% (BldA) [Mass fraction] 99 % Mk Garcia MD Work Phone: [facility] 03-14-2024 14:47-0400 Systolic blood pressure 102 mm[Hg] Mk Garcia MD Work Phone: [facility] 01-19-2024 11:45-0400 Diastolic blood pressure 55 mm[Hg] MD Mk Garcia Work Phone: [facility] 01-19-2024 11:45-0400 Heart rate 52 /min MD Mk Garcia Work Phone: [facility] 01-19-2024 11:45-0400 Respiratory rate 18 /min MD Mk Garcia Work Phone: [facility] 01-19-2024 11:45-0400 SaO2% (BldA) [Mass fraction] 100 % MD Mk Garcia Work Phone: [facility] 01-19-2024 11:45-0400 Systolic blood pressure 106 mm[Hg] MD Mk Garcia Work Phone: [facility] 01-19-2024 10:25-0400 Body height 167.64 cm MD Mk Garcia Work Phone: [facility] 01-19-2024 10:25-0400 Body weight 72.57 kg MD Mk Garcia Work Phone: [facility] 2023 11:17-0400 Body height 165.1 cm Bonifacio Stern DO Work Phone: [facility] 2023 11:17-0400 Body mass index (BMI) [Ratio] 27.79 kg/m2 Bonifacio Stern DO Work Phone: [facility] 2023 11:17-0400 Body weight 75.75 kg Bonifacio Stern DO Work Phone: [facility] 2023 11:17-0400 Diastolic blood pressure 74 mm[Hg] Bonifacio Stern DO Work Phone: [facility] 2023 11:17-0400 Heart rate 60 /min Bonifacio Stern DO Work Phone: [facility] 2023 11:17-0400 Systolic blood pressure 124 mm[Hg] Bonifacio Stern DO Work Phone: [facility] 09-01-2023 10:37-0500 Body height 167.6 cm Mk Garcia MD Work Phone: [facility] 09-01-2023 10:37-0500 Body mass index (BMI) [Ratio] 25.34 kg/m2 Mk Garcia MD Work Phone: [facility] 09-01-2023 10:37-0500 Body temperature 98.01 [degF] Mk Garcia MD Work Phone: [facility] 09-01-2023 10:37-0500 Body weight 71.22 kg Mk Garcia MD Work Phone: [facility] 09-01-2023 10:37-0500 Diastolic blood pressure 80 mm[Hg] Mk Garcia MD Work Phone: [facility] 09-01-2023 10:37-0500 Heart rate 52 /min Mk Garcia MD Work Phone: [facility] 09-01-2023 10:37-0500 SaO2% (BldA) [Mass fraction] 99 % Mk Garcia MD Work Phone: [facility] 09-01-2023 10:37-0500 Systolic blood pressure 130 mm[Hg] Mk Garcia MD Work Phone: [facility] 07-08-2023 11:50-0500 Body temperature 97.8 [degF] MD Mk Garcia Work Phone: [facility] 07-08-2023 11:50-0500 Diastolic blood pressure 78 mm[Hg] MD Mk Garcia Work Phone: [facility] 07-08-2023 11:50-0500 Heart rate 57 /min MD Mk Garcia Work Phone: [facility] 07-08-2023 11:50-0500 Respiratory rate 16 /min MD Mk Garcia Work Phone: [facility] 07-08-2023 11:50-0500 SaO2% (BldA) [Mass fraction] 96 % MD Mk Garcia Work Phone: [facility] 07-08-2023 11:50-0500 Systolic blood pressure 152 mm[Hg] MD Mk Garcia Work Phone: [facility] 07-08-2023 05:17-0500 Body weight 63.8 kg MD Mk Garcia Work Phone: [facility] 07-07-2023 12:21-0500 Body height 182.88 cm MD Mk Garcia Work Phone: [facility] 06-21-2023 11:30-0500 Body height 167.64 cm Maryann Casillas Other [employer] Other 06-21-2023 11:30-0500 Body mass index (BMI) [Ratio] 22.59 kg/m2 Maryann Casillas Other [employer] Other 06-21-2023 11:30-0500 Body temperature 97.7 [degF] Maryann Casillas Other [employer] Other 06-21-2023 11:30-0500 Body weight 63.5 kg Maryann Casillas Other [employer] Other 06-21-2023 11:30-0500 Diastolic blood pressure 80 mm[Hg] Maryann Casillas Other [employer] Other 06-21-2023 11:30-0500 SaO2% (BldA) [Mass fraction] 98 % Maryann Casillas Other [employer] Other 06-21-2023 11:30-0500 Systolic blood pressure 128 mm[Hg] Maryann Casillas Other [facility] [employer] Other 04-02-2023 18:21-0400 Heart rate 53 /min MD Mk Garcia Work Phone: [facility] 04-02-2023 17:52-0400 Body height 167.64 cm MD Mk Garcia Work Phone: [facility] 04-02-2023 17:52-0400 Body temperature 98.7 [degF] MD Mk Garcia Work Phone: [facility] 04-02-2023 17:52-0400 Body weight 61.23 kg MD Mk Garcia Work Phone: [facility] 04-02-2023 17:52-0400 Diastolic blood pressure 86 mm[Hg] MD Mk Garcia Work Phone: [facility] 04-02-2023 17:52-0400 Respiratory rate 19 /min MD Mk Garcia Work Phone: [facility] 04-02-2023 17:52-0400 SaO2% (BldA) [Mass fraction] 100 % MD Mk Garcia Work Phone: [facility] 04-02-2023 17:52-0400 Systolic blood pressure 158 mm[Hg] MD Mk Garcia Work Phone: [facility] 03-03-2023 12:09-0400 Body height 167.64 cm Mk Garcia Work Phone: [facility] [address] DO Work Phone: 03-03-2023 12:09-0400 Body mass index (BMI) [Ratio] 21.95 kg/m2 Mk Garcia Work Phone: [facility] DO Work Phone: 03-03-2023 12:09-0400 Body surface area Derived from formula 1.7 m2 Mk Santos Naderer Work Phone: [facility] [facility] DO Work Phone: 03-03-2023 12:09-0400 Body weight 61.69 kg Mk Santos Naderer Work Phone: [facility] DO Work Phone: 03-03-2023 12:09-0400 Diastolic blood pressure 92 mm[Hg] Mk Santos Naderer Work Phone: [facility] DO Work Phone: 03-03-2023 12:09-0400 Heart rate 66 /min Mk Santos Naderer Work Phone: [facility] DO Work Phone: 03-03-2023 12:09-0400 Systolic blood pressure 184 mm[Hg] Mk Santos Naderer Work Phone: [facility] DO Work Phone: 12-17-2022 08:02-0400 Body height 167.4 cm Alyssia Weber MD Work Phone: [facility] 12-17-2022 08:02-0400 Body mass index (BMI) [Ratio] 20.27 kg/m2 Alyssia Weber MD Work Phone: [facility] 12-17-2022 08:02-0400 Body weight 56.8 kg Alyssia Weber MD Work Phone: [facility] 11-19-2022 13:07-0400 Body temperature 96.9 [degF] Mk Doeerer Work Phone: [facility] Work Phone: 10-13-2022 13:11-0400 Body height 167.64 cm Mk Doeerer Work Phone: [facility] Work Phone: 10-13-2022 13:11-0400 Body mass index (BMI) [Ratio] 21.18 kg/m2 Mk Santos Naderer Work Phone: [facility] Work Phone: 10-13-2022 13:11-0400 Body surface area Derived from formula 1.67 m2 Mk Santos Naderer Work Phone: [facility] Work Phone: 10-13-2022 13:11-0400 Body temperature 97.1 [degF] Mk Santos Naderer Work Phone: [facility] Work Phone: 10-13-2022 13:11-0400 Body weight 59.54 kg Mk Santos Naderer Work Phone: [facility] Work Phone: 10-13-2022 13:11-0400 Diastolic blood pressure 96 mm[Hg] Mk Santos Naderer Work Phone: [facility] Work Phone: 10-13-2022 13:11-0400 Heart rate 56 /min Mk Santos Naderer Work Phone: [facility] Work Phone: 10-13-2022 13:11-0400 Respiratory rate 16 /min Mk Santos Naderer Work Phone: [facility] Work Phone: 10-13-2022 13:11-0400 SaO2% (BldA) [Mass fraction] 99 % Mk Santos Naderer Work Phone: [facility] Work Phone: 10-13-2022 13:11-0400 Systolic blood pressure 151 mm[Hg] Mk Garcia Work Phone: [facility] Work Phone: 10-08-2022 14:00-0400 Body temperature 97.88 [degF] Mk Garcia Other Phone: [facility] 10-08-2022 14:00-0400 Diastolic blood pressure 60 mm[Hg] Mk Garcia Other Phone: [facility] 10-08-2022 14:00-0400 Heart rate 60 /min Mk Garcia Other Phone: [facility] 10-08-2022 14:00-0400 Respiratory rate 16 /min Mk Garcia Other Phone: [facility] 10-08-2022 14:00-0400 SaO2% (BldA) [Mass fraction] 98 % Mk Garcia Other Phone: [facility] 10-08-2022 14:00-0400 Systolic blood pressure 131 mm[Hg] Mk Garcia Other Phone: [facility] 10-08-2022 09:00-0400 Body weight 58 kg Mk Garcia Other Phone: [facility] 10-03-2022 22:52-0400 Heart rate 54 /min MD Mk Garcia Work Phone: [facility] 10-03-2022 22:00-0400 Diastolic blood pressure 72 mm[Hg] MD Mk Garcia Work Phone: [facility] 10-03-2022 22:00-0400 Respiratory rate 18 /min MD Mk Garcia Work Phone: [facility] 10-03-2022 22:00-0400 SaO2% (BldA) [Mass fraction] 98 % MD Mk Garcia Work Phone: [facility] 10-03-2022 22:00-0400 Systolic blood pressure 170 mm[Hg] MD Mk Garcia Work Phone: [facility] 10-03-2022 19:31-0400 Body height 167.64 cm MD Mk Garcia Work Phone: [facility] 10-03-2022 19:31-0400 Body weight 56.69 kg MD Mk Garcia Work Phone: [facility] 10-03-2022 19:30-0400 Body temperature 97.6 [degF] MD Mk Garcia Work Phone: [facility] 09-29-2022 10:59-0400 Diastolic blood pressure 85 mm[Hg] MD Mk Garcia Work Phone: [facility] 09-29-2022 10:59-0400 Heart rate 57 /min MD Mk Garcia Work Phone: [facility] 09-29-2022 10:59-0400 Respiratory rate 16 /min MD Mk Garcia Work Phone: [facility] 09-29-2022 10:59-0400 SaO2% (BldA) [Mass fraction] 99 % MD Mk Garcia Work Phone: [facility] 09-29-2022 10:59-0400 Systolic blood pressure 165 mm[Hg] MD Mk Garcia Work Phone: [facility] 09-29-2022 08:05-0400 Body temperature 97.4 [degF] MD Mk Garcia Work Phone: [facility] 09-29-2022 03:43-0400 Body weight 59.5 kg MD Mk Garcia Work Phone: [facility] 09-28-2022 16:29-0400 Body height 167.64 cm MD Mk Garcia Work Phone: [facility] 09-28-2022 09:32-0400 60 1 Mk Santos Naderer Work Phone: [facility] Work Phone: Comment on above: [id number] 07-23-2022 12:18-0500 Body height 167.64 cm Mk Santos Naderer Work Phone: [facility] 250 DO Work Phone: 07-23-2022 12:18-0500 Body mass index (BMI) [Ratio] 20.5 kg/m2 Mk Santos Naderer Work Phone: [facility] DO Work Phone: 07-23-2022 12:18-0500 Body surface area Derived from formula 1.65 m2 Mk Santos Naderer Work Phone: [facility] [facility] DO Work Phone: 07-23-2022 12:18-0500 Body weight 57.61 kg Mk Santos Naderer Work Phone: [facility] DO Work Phone: 07-23-2022 12:18-0500 Diastolic blood pressure 80 mm[Hg] Mk Santos Naderer Work Phone: [facility] DO Work Phone: 07-23-2022 12:18-0500 Heart rate 64 /min Mk Santos Naderer Work Phone: [facility] [facility] DO Work Phone: 07-23-2022 12:18-0500 Systolic blood pressure 134 mm[Hg] Mk Santos Naderer Work Phone: [facility] DO Work Phone: 05-27-2022 13:25-0500 Diastolic blood pressure 66 mm[Hg] MD Mk Doeerer Work Phone: [facility] 05-27-2022 13:25-0500 Heart rate 56 /min MD Mk Garcia Work Phone: [facility] 05-27-2022 13:25-0500 Respiratory rate 16 /min MD Mk Garcia Work Phone: [facility] 05-27-2022 13:25-0500 SaO2% (BldA) [Mass fraction] 98 % MD Mk Garcia Work Phone: [facility] 05-27-2022 13:25-0500 Systolic blood pressure 129 mm[Hg] MD Mk Garcia Work Phone: [facility] 05-27-2022 09:40-0500 Inhaled oxygen flow rate 2 L/min MD Mk Garcia Work Phone: [facility] 05-27-2022 08:51-0500 Body height 167.64 cm MD Mk Garcia Work Phone: [facility] 05-27-2022 08:51-0500 Body weight 54.43 kg MD Mk Garcia Work Phone: [facility] 05-26-2022 14:30-0500 Body height 167.64 cm Maryann Casillas Other [employer] Other 05-26-2022 14:30-0500 Body mass index (BMI) [Ratio] 20.17 kg/m2 Maryann Casillas Other [employer] Other 05-26-2022 14:30-0500 Body temperature 97.7 [degF] Maryann Casillas Other [employer] Other 05-26-2022 14:30-0500 Body weight 56.7 kg Maryann Casillas Other [employer] Other 05-26-2022 14:30-0500 Diastolic blood pressure 64 mm[Hg] Maryann Casillas Other [employer] Other 05-26-2022 14:30-0500 SaO2% (BldA) [Mass fraction] 98 % Maryann Casillas Other [employer] Other 05-26-2022 14:30-0500 Systolic blood pressure 112 mm[Hg] Maryann Casillas Other [employer] Other 05-20-2022 12:00-0400 Body height 167.64 cm MD Mk Garcia Work Phone: [facility] 05-20-2022 12:00-0400 Body weight 56.69 kg MD Mk Garcia Work Phone: [facility] 05-20-2022 12:00-0400 Diastolic blood pressure 80 mm[Hg] MD Mk Garcia Work Phone: [facility] 05-20-2022 12:00-0400 Heart rate 57 /min MD Mk Garcia Work Phone: [facility] 05-20-2022 12:00-0400 Respiratory rate 20 /min MD Mk Garcia Work Phone: [facility] 05-20-2022 12:00-0400 SaO2% (BldA) [Mass fraction] 100 % MD Mk Garcia Work Phone: [facility] 05-20-2022 12:00-0400 Systolic blood pressure 118 mm[Hg] MD Mk Garcia Work Phone: [facility] 03-30-2022 14:09-0400 Diastolic blood pressure 75 mm[Hg] MD Mk Garcia Work Phone: [facility] 03-30-2022 14:09-0400 Heart rate 64 /min MD Mk Garcia Work Phone: [facility] 03-30-2022 14:09-0400 Respiratory rate 16 /min MD Mk Garcia Work Phone: [facility] 03-30-2022 14:09-0400 SaO2% (BldA) [Mass fraction] 99 % MD Mk Garcia Work Phone: [facility] 03-30-2022 14:09-0400 Systolic blood pressure 138 mm[Hg] MD Mk Garcia Work Phone: [facility] 03-30-2022 13:10-0400 Body height 167.64 cm MD Mk Garcia Work Phone: [facility] 03-30-2022 13:10-0400 Body temperature 97.9 [degF] MD Mk Garcia Work Phone: [facility] 03-30-2022 13:10-0400 Body weight 56.69 kg MD Mk Garcia Work Phone: [facility] 03-30-2022 12:19-0400 Body temperature 98.1 [degF] MD Mk Garcia Work Phone: [facility] 03-30-2022 12:19-0400 Diastolic blood pressure 98 mm[Hg] MD Mk Garcia Work Phone: [facility] 03-30-2022 12:19-0400 Heart rate 76 /min MD Mk Garcia Work Phone: [facility] 03-30-2022 12:19-0400 Respiratory rate 18 /min MD Mk Garcia Work Phone: [facility] 03-30-2022 12:19-0400 SaO2% (BldA) [Mass fraction] 96 % MD Mk Garcia Work Phone: [facility] 03-30-2022 12:19-0400 Systolic blood pressure 199 mm[Hg] MD Mk Garcia Work Phone: [facility] 03-30-2022 08:20-0400 Body height 167.64 cm MD Mk Garcia Work Phone: [facility] 03-30-2022 08:20-0400 Body weight 56.69 kg MD Mk Garcia Work Phone: [facility] 03-16-2022 16:41-0400 Diastolic blood pressure 70 mm[Hg] MD Mk Garcia Work Phone: [facility] 03-16-2022 16:41-0400 Heart rate 55 /min MD Mk Garcia Work Phone: [facility] 03-16-2022 16:41-0400 Respiratory rate 16 /min MD Mk Garcia Work Phone: [facility] 03-16-2022 16:41-0400 SaO2% (BldA) [Mass fraction] 97 % MD Mk Garcia Work Phone: [facility] 03-16-2022 16:41-0400 Systolic blood pressure 152 mm[Hg] MD Mk Garcia Work Phone: [facility] 03-16-2022 13:10-0400 Body height 167.64 cm MD Mk Garcia Work Phone: [facility] 03-16-2022 13:10-0400 Body temperature 97.6 [degF] MD Mk Garcia Work Phone: [facility] 03-16-2022 13:10-0400 Body weight 56.69 kg MD Mk Garcia Work Phone: [facility] 02-17-2022 14:15-0400 Body height 167.64 cm Tani Vargas Other [place] [employer] Other 02-17-2022 14:15-0400 Body mass index (BMI) [Ratio] 24.21 kg/m2 Tani Vargas Other [employer] Other 02-17-2022 14:15-0400 Body temperature 97.5 [degF] Tani Vargas Other [employer] Other 02-17-2022 14:15-0400 Body weight 68.04 kg Tani Vargas Other [employer] Other 02-17-2022 14:15-0400 Diastolic blood pressure 72 mm[Hg] Tani Vargas Other [employer] Other 02-17-2022 14:15-0400 SaO2% (BldA) [Mass fraction] 98 % Tani Vargas Other [employer] Other 02-17-2022 14:15-0400 Systolic blood pressure 118 mm[Hg] Tani Vargas Other [employer] Other 02-10-2022 15:00-0400 Diastolic blood pressure 71 mm[Hg] MD Mk Garcia Work Phone: [facility] 02-10-2022 15:00-0400 Heart rate 64 /min MD Mk Garcia Work Phone: [facility] 02-10-2022 15:00-0400 Respiratory rate 20 /min MD Mk Garcia Work Phone: [facility] 02-10-2022 15:00-0400 SaO2% (BldA) [Mass fraction] 100 % MD Mk Garcia Work Phone: [facility] 02-10-2022 15:00-0400 Systolic blood pressure 136 mm[Hg] MD Mk Garcia Work Phone: [facility] 02-10-2022 11:46-0400 Body height 167.64 cm MD Mk Garcia Work Phone: [facility] 02-10-2022 11:46-0400 Body temperature 97.7 [degF] MD Mk Garcia Work Phone: [facility] 02-10-2022 11:46-0400 Body weight 58.96 kg MD Mk Garcia Work Phone: [facility] 01-02-2022 09:01-0400 Blood Pressure Location [facility] 01-02-2022 09:01-0400 Diastolic blood pressure 70 mm[Hg] Reji [facility] 01-02-2022 09:01-0400 Heart rate 68 /min Reji [facility] 01-02-2022 09:01-0400 Respiratory rate 16 /min Reji [facility] 01-02-2022 09:01-0400 Systolic blood pressure 109 mm[Hg] Reji [facility] 10-15-2021 12:05-0400 Body height 167.64 cm Mk Garcia Work Phone: [facility] DO Work Phone: 10-15-2021 12:05-0400 Diastolic blood pressure 69 mm[Hg] Mk Santos Naderer Work Phone: [facility] [employer] 250 DO Work Phone: 10-15-2021 12:05-0400 Heart rate 68 /min Mk Santos Naderer Work Phone: [facility] [employer] [facility] DO Work Phone: 10-15-2021 12:05-0400 Systolic blood pressure 94 mm[Hg] Mk Santos Naderer Work Phone: [facility] [employer] [facility] DO Work Phone: 09-29-2021 11:15-0400 Body height 167.64 cm Maryann Casillas Other [employer] Other 09-29-2021 11:15-0400 Body mass index (BMI) [Ratio] 24.21 kg/m2 Maryann Casillas Other [employer] Other 09-29-2021 11:15-0400 Body temperature 98.4 [degF] Maryann Casillas Other [employer] Other 09-29-2021 11:15-0400 Body weight 68.04 kg Maryann Casillas Other [employer] Other 09-29-2021 11:15-0400 Diastolic blood pressure 80 mm[Hg] Maryann Casillas Other [employer] Other 09-29-2021 11:15-0400 Respiratory rate 18 /min Maryann Casillas Other [employer] Other 09-29-2021 11:15-0400 SaO2% (BldA) [Mass fraction] 99 % Maryann Casillas Other [employer] Other 09-29-2021 11:15-0400 Systolic blood pressure 138 mm[Hg] Maryann Casillas Other [employer] Other 08-08-2021 12:30-0500 Body height 167.64 cm Tani Buehrer Other [employer] Other 08-08-2021 12:30-0500 Body temperature 98.4 [degF] Tani Buehrer Other [employer] Other 08-08-2021 12:30-0500 Diastolic blood pressure 84 mm[Hg] Tani Buehrer Other [employer] Other 08-08-2021 12:30-0500 Respiratory rate 18 /min Tani Buehrer Other [employer] Other 08-08-2021 12:30-0500 SaO2% (BldA) [Mass fraction] 98 % Tani Buehrer Other [employer] Other 08-08-2021 12:30-0500 Systolic blood pressure 136 mm[Hg] Tani Buehrer Other [employer] Other Encounters Encounter Date Encounter Type Care Provider Facility Start: 03-02-2025 ambulatory Reji Richardson ty:HUSSEIN Cobb Start: 02-28-2025 End: 02-28-2025 Marissa Garcia MD Work Phone: [facility] Comment on above: Degeneration of cerv ical intervertebral disc Start: 02-05-2025 End: 02-05-2025 Marissa Garcia MD Work Phone: [facility] Comment on above: Degeneration of cerv ical intervertebral disc Start: 01-09-2025 End: 01-09-2025 Refill Mk Garcia MD Work Phone: [facility] Comment on above: Sinus congestion; Degeneration of cervical intervertebral disc Start: 12-30-2024 End: 12-30-2024 Clinisync Result Encounter Mk Garcia MD Work Phone: [facility] Department Unsolicited Start: 12-30-2024 End: 12-30-2024 Clinisync Result Encounter Mk Garcia MD Work [...] 12-06-2024 Office outpatient visit 25 minutes Mk Garcia MD Work Phone: [facility] [...] 11-20-2024 Refill Mk Garcia MD Work Phone: [facility] Comment on above: Degeneration of cerv ical intervertebral disc Start: 11-14-2024 End: 11-14-2024 ambulatory [facility] Start: 11-14-2024 End: 11-14-2024 Office outpatient visit 25 minutes Deirdre [facility] MARINE EQUIPMENT SALES ENGINEER-SQL SSRS DEVELOPER Work Phone: [facility] Comment on above: Essential hypertensi on (Primary Dx); Two-vessel coronary artery disease; Type 2 diabetes mellitus without complication, without long-term current use of insulin; Mixed hyperlipidemia; Abdominal aortic aneurysm (AAA), unspecified part, unspecified whether ruptured; BMI 28.0-28.9,adult; Current smoker Start: 10-26-2024 End: 10-26-2024 Refill Mk Garcia MD Work Phone: [facility] Comment on above: Degeneration of cerv ical intervertebral disc Start: 09-04-2024 End: 09-04-2024 Refill Mk Garcia MD Work Phone: [facility] Comment on above: Degeneration of cerv ical intervertebral disc; Essential hypertension, benign (CMS/HCC) Start: 08-28-2024 End: 08-28-2024 Patient encounter procedure [facility] V[facility] Surg Work Phone: Start: 08-28-2024 End: 08-28-2024 ambulatory Mk Garcia [facility] Work Phone: Start: 08-01-2024 End: 08-01-2024 Refill Mk Garcia MD Work Phone: [facility] Comment on above: Degeneration of cerv ical intervertebral disc Start: 07-10-2024 End: 07-10-2024 Refill Mk Garcia MD Work Phone: [facility] Comment on above: Degeneration of cerv ical intervertebral disc Start: 05-31-2024 End: 05-31-2024 Refill Mk Garcia MD Work Phone: [facility] Comment on above: Degeneration of cerv ical intervertebral disc Start: 05-26-2024 End: 05-26-2024 Subsequent hospital visit by physician Camila Antunez Ultrasound [facility] Comment on above: Choledocholithiasis; Belching; Abdominal discomfort Start: 05-26-2024 End: 05-26-2024 ambulatory [facility] Start: 05-26-2024 End: 05-26-2024 Clinisync Result Encounter Generic External Data Provider [facility] External Department Unsolicited Start: 05-26-2024 End: 05-26-2024 Clinisync Result Encounter Generic External Data Provider [facility] External Department Unsolicited Start: 05-22-2024 End: 05-22-2024 Office outpatient new 45 minutes Sol Rhodes MD Work Phone: [facility] Comment on above: Choledocholithiasis (Primary Dx); Belching; Abdominal discomfort Start: 05-22-2024 End: 05-22-2024 ambulatory [facility] [place] [facility] Start: 05-10-2024 End: 05-10-2024 Office outpatient visit 25 minutes Bonifacio Stern DO Work Phone: [facility] Comment on above: Two-vessel coronary artery disease; 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; Status post non-ST elevation myocardial infarction (NSTEMI); PVD (peripheral vascular disease) [place] Abdominal aortic aneurysm (AAA), unspecified part, unspecified whether ruptured ([facility]); Mixed hyperlipidemia; Essential hypertension; Type 2 diabetes mellitus without complication, without long-term current use of insulin (Multi); Neuropathy; Chronic obstructive pulmonary disease, unspecified COPD type (Multi); Current smoker; BMI 27.0-27.9,adult Start: 05-10-2024 End: 05-10-2024 ambulatory [facility] Ambulatory Start: 05-01-2024 End: 05-01-2024 Refill Mk Garcia MD Work Phone: [facility] Comment on above: Degeneration of cerv ical intervertebral disc Start: 04-11-2024 End: 04-11-2024 Office outpatient visit 15 minutes Mk Garcia MD Work Phone: [facility] Comment on above: Essential hypertensi on, benign [...] Bamboo flowsheet Mk Garcia MD Work Phone: [facility] Start: 04-11-2024 End: 04-11-2024 Bamboo flowsheet Mk Garcia MD Work Phone: [facility] Start: 04-06-2024 End: 04-06-2024 Refill Mk Garcia MD Work Phone: [facility] Comment on above: Degeneration of cerv ical intervertebral disc Start: 03-14-2024 End: 03-14-2024 Office outpatient visit 25 minutes Mk Garcia MD Work Phone: [facility] Comment on above: Type 2 diabetes eric [...] / Non-visit MD Zayra Garcia Work Phone: [facility] Work Phone: Start: 01-19-2024 End: 01-19-2024 Admission to same day surgery center MD Mk Garcia Work Phone: [facility]-Digestive Health Work Phone: Start: 01-19-2024 End: 01-19-2024 ambulatory MD Mk Garcia Work Phone: [facility] Work Phone: Start: 2023 End: 2023 Office outpatient visit 25 minutes Bonifacio Stern DO Work Phone: [facility] Comment on above: Two-vessel coronary artery disease; Status post non-ST elevation myocardial infarction (NSTEMI); Essential hypertension; Mixed hyperlipidemia; Type 2 diabetes mellitus without complication, without long-term current use of insulin (Multi); Abdominal aortic aneurysm (AAA), unspecified part, unspecified whether ruptured ([facility]); Current smoker; BMI 27.0-27.9,adult Start: 09-01-2023 Bamboo flowsheet Mk Garcia MD Work Phone: [facility] Start: 09-01-2023 Bamboo flowsheet Mk Garcia MD Work Phone: [facility] Start: 09-01-2023 End: 09-01-2023 Office outpatient visit 15 minutes Mk Garcia MD Work Phone: [facility] Comment on above: Diarrhea due to drug (Primary Dx) Start: 07-08-2023 End: 07-08-2023 ambulatory Yemi Silverio Other [facility] [employer] Other Start: 07-08-2023 Telephone encounter Yemi Cullen Gastroenterology Start: 07-06-2023 End: 07-08-2023 Evaluation and management of inpatient MD Mk Garcia Work Phone: [facility]-[address] [place] [address] Work Phone: Start: 06-21-2023 Follow-up encounter Maryann Tatum [facility] V[facility] Surgery Start: 06-21-2023 End: 06-21-2023 ambulatory MD Mk Garcia Work Phone: [facility] Work Phone: Start: 06-21-2023 End: 06-21-2023 Patient encounter procedure MD Mk Garcia Work Phone: [facility]-Ultrasound [facility] Vascular Start: 04-13-2023 Telephone encounter Mk aceves Work Phone: [facility]-[place] 250 DO Work Phone: Start: 04-02-2023 End: 04-02-2023 Emergency department patient visit MD Mk Garcia Work Phone: [facility]-Emergency Room Work Phone: Start: 03-03-2023 Office outpatient ne w 45 minutes Mk Garcia Work Phone: [facility] 250 DO Work Phone: Start: 03-03-[address] Bonifacio Stern Facility: Start: 12-17-2022 End: 12-17-[address] Mk Garcia Facility:[id number] Start: 12-17-2022 End: 12-17-2022 Subsequent hospital visit by physician Alyssia Weber MD Work Phone: [facility] Comment on above: Other specified comp lication of other internal prosthetic devices, implants and grafts, initial encounter; Essential (primary) hypertension; Chronic obstructive pulmonary disease, unspecified (CMS/HCC); Type 2 diabetes mellitus without complications (CMS/HCC); Iron deficiency anemia, unspecified; termite control service representative (current) use of aspirin; termite control service representative (current) use of oral hypoglycemic drugs; Encounter for fitting and adjustment of other gastrointestinal appliance and device Start: 11-19-2022 Tobacco use cessatio n intensive >10 minutes Mk Garcia Work Phone: [facility] 450 Work Phone: Start: 11-19-2022 ambulatory HUMPHREY Richardson ty:[id number] Start: 11-11-2022 End: 11-12-[address] Franky Mattson Facility:[id number] Start: 10-28-2022 End: 10-28-2022 Patient encounter procedure KHURRAM QUINONES [facility] Start: 10-28-2022 End: 10-29-[address] MK GARCIA Facility:H1 Start: 10-20-2022 Patient encounter procedure Benji Garcia Work Phone: [facility] 250 DO Work Phone: Start: 10-13-[address] Mk Garcia Facility:[id number] Start: 10-09-2022 AUDIT Mk Garcia Work Phone: [facility] Work Phone: Start: 10-05-2022 End: 10-08-2022 Evaluation and management of inpatient Dr. Mk Garcia Facility:[id number] Start: 10-05-2022 End: 10-08-2022 Evaluation and management of inpatient Terri Wilder [place] [id number] 01 Start: 10-03-2022 End: 10-03-2022 Emergency department patient visit MD Mk Garcia Work Phone: [facility]-Emergency Room Work Phone: Start: 09-29-2022 End: 09-29-2022 ambulatory [address] Silverio Other [facility] [employer] Other Start: 09-29-2022 Telephone encounter Yemi Silverio [facility] Start: 09-28-[address] Mk Garcia Facility:[id number] Start: 09-27-[address] Gabriel Coles Facility:[id number] Start: 09-26-2022 End: 09-29-2022 Evaluation and management of inpatient MD Mk Garcia Work Phone: [facility]-[address] [place] [facility] Work Phone: Start: 09-26-2022 End: 09-26-2022 ambulatory THERESA JOHANSEN Facility:H1 Start: 09-21-2022 End: 09-22-[address] REJI EPPS . Facility:H1 Start: 07-23-2022 Office outpatient vi sit 25 minutes Mk Garcia Work Phone: [facility]-[place] 250 DO Work Phone: Start: 07-23-[address] Bonifacio Stern Facility: Start: 07-02-[address] Mk Garcia Facility: Start: 06-29-2022 End: 06-29-2022 Patient encounter procedure Reji EPPS [facility] Start: 05-27-2022 End: 05-27-2022 Admission to same day surgery center MD Mk Garcia Work Phone: [facility]-Interventional Radiology Start: 05-27-2022 End: 05-27-2022 ambulatory MD Mk Garcia Work Phone: [facility] Work Phone: Start: 05-26-2022 Office outpatient vi sit 25 minutes Maryann Casillas [facility] V[facility] Surgery Start: 05-26-2022 End: 05-26-2022 ambulatory MD Mk Garcia Work Phone: [facility] Work Phone: Start: 05-26-2022 End: 05-26-2022 Patient encounter procedure MD Mk Garcia Work Phone: [facility]-Ultrasound [facility] Vascular Start: 05-21-2022 End: 05-22-[address] MK GARCIA Facility:H1 Start: 05-20-2022 End: 05-20-2022 Admission to same day surgery center MD Mk Garcia Work Phone: [facility]-Interventional Radiology Start: 05-20-2022 End: 05-20-2022 ambulatory MD Mk Garcia Work Phone: [facility] Work Phone: Start: 04-28-2022 End: 04-28-2022 ambulatory Yemi Silverio Other [facility] [employer] Other Start: 04-28-2022 Telephone encounter Yemi Cullen Gastroenterology Start: 04-01-2022 End: 04-01-2022 [address]io Other [facility] [employer] Other Start: 04-01-2022 Telephone encounter Yemi Cullen Gastroenter[facility] Start: 03-30-2022 End: 03-30-2022 Admission to same day surgery center MD Mk Garcia Work Phone: [facility]-Digestive Health Start: 03-30-2022 End: 03-30-2022 Emergency department patient visit MD Mk Garcia Work Phone: [facility]-Emergency Room Start: 03-16-2022 End: 03-16-2022 Emergency department patient visit MD Mk Garcia Work Phone: [facility]-Emergency Room Start: 02-24-2022 End: 02-24-2022 Patient encounter procedure MD Mk Garcia Work Phone: [facility]-Pre-Surgical Testing Start: 02-17-2022 End: 02-17-2022 ambulatory Tani Vargas Other [employer] Other Start: 02-17-2022 Office outpatient vi sit 25 minutes Tani APPIAH Vascular Surgery Start: 02-10-2022 End: 02-10-2022 ambulatory Yemi Silverio Other [employer] Other Start: 02-10-2022 Telephone encounter Yemi BRAR G Gastroenterology Start: 02-10-2022 End: 02-10-2022 Emergency department patient visit MD Mk Garcia Work Phone: [facility]-Emergency Room Start: 01-05-2022 End: 01-06-[address] REJI EPPS . Facility: Start: 01-02-2022 End: 01-02-2022 Patient encounter procedure Reji EPPS [facility] Start: 10-15-2021 Office outpatient vi sit 25 minutes Mk Garcia Work Phone: [facility] 250 DO Work Phone: Start: 09-29-2021 End: 09-29-2021 ambulatory Maryann Casillas Other [employer] Other Start: 09-29-2021 Patient encounter procedure Maryann scott [facility] Start: 09-25-2021 Patient encounter procedure Do nna Trell Calles MARINE EQUIPMENT SALES ENGINEER-SQL SSRS DEVELOPER Work Phone: [facility]-[place] 600 DO Work Phone: Start: 08-12-2021 End: 08-12-2021 ambulatory Tani Youngrer Other [employer] Other Start: 08-12-2021 Telephone encounter Tani Buehrer [facility] Start: 08-11-2021 End: 08-11-2021 ambulatory Tani Butamrarer Other [employer] Other Start: 08-11-2021 Telephone encounter Tani Butamrarer [facility] Start: 08-08-2021 End: 08-08-2021 ambulatory Tani Buehrer Other [employer] Other Start: 08-08-2021 Postop follow up vis it related to original px Tani Buehrer [facility] Start: 08-07-2021 End: 08-07-2021 ambulatory Tani Butamrarer Other [employer] Other Start: 08-07-2021 Telephone encounter Tani Buehrer [facility] Procedures Date Procedure Procedure Detail Performing Clinician Start: 12-30-2024 H MICROALB CREAT RATIO RANDOM Mk aceves MD Work Phone: Start: 12-29-2024 ALL CBC WITH AUTO DIFF Mk Garcia MD Work Phone: Start: 05-26-2024 [facility] CMP (CMP) (FOR REMOTE [facility] USE) Gener ic External Data Provider Start: [...] on above: Performed By: #### CBC #### [facility] [address] [place] [address] Start: 09-28-2022 MRI of abdomen with contrast MD Mk aceves Work Phone: Start: 09-21-[address] REJI EPPS . Comment on above: Performed By: #### PSAD #### [facility] [address] [place], [place] [address] Dr. Charlotte Awan Start: 05-27-2022 IR Angiogram w/TLA/Stent Left Arm (Not Applicable) MD Mk Garcia Work Phone: Start: 05-26-2022 US scan of aorta MD Mk Garcia Work Phone: Start: 05-21-[address] REJI EPPS . Comment on above: Performed By: #### VITAD, PSASC #### [facility] [address] [place] [id number] [address] Charlotte Awan Start: 03-30-2022 Esophagogastroduodenoscopy MD [...] above: Performed By: #### VITAD, PSASC #### [facility] [address] [place], [place] [id number] Dr. Charlotte Awan Start: 11-29-2017 Transrectal biopsy of prostate using ultrasound guidance Reji EPPS Comment on above: 06/23/2016 Start: 04-16-2016 Transurethral prostatectomy Reji VARNER Start: 03-03-2016 Cystoscopy Reji EPPS Comment on above: 2007 Start: 02-27-2016 Urodynamic studies Reji EPPS Angioplasty of blood vessel Deirdre Calles MARINE EQUIPMENT SALES ENGINEER-SQL SSRS DEVELOPER Work Phone: Biopsy of prostate Deirdre Calles MARINE EQUIPMENT SALES ENGINEER-SQL SSRS DEVELOPER Work Phone: Cardiac catheterization Fred Calles MARINE EQUIPMENT SALES ENGINEER-SQL SSRS DEVELOPER Work Phone: Cholecystectomy Mk Corrales brett Work Phone: Colonoscopy Deirdre killian MARINE EQUIPMENT SALES ENGINEER-SQL SSRS DEVELOPER Work Phone: Comment on above: 20Jul2014; Colonoscopy Reji EPPS Hemorrhoidectomy Reji WILKINSON Operation on the ear Deirdre Andres Calles MARINE EQUIPMENT SALES ENGINEER-SQL SSRS DEVELOPER Work Phone: SARS Antigen (LFIA) MD Mk Garcia Work Phone: Screening for occult blood in feces MD Mk Garcia Work Phone: Surgical procedure on eye proper Mk Garcia Work Phone: Transurethral prostatectomy Deirdre Calles MARINE EQUIPMENT SALES ENGINEER-SQL SSRS DEVELOPER Work Phone: Plan of Treatment Date Care Activity Detail Author Start: 01-18-2034 Screening for malignant neoplasm of colon [facility] Start: 12-30-2025 Urine screening for protein Diabetes: Urine Protein Screening [facility] Start: 05-16-2025 End: 05-16-2025 Patient encounter procedure 05/16/2025 10:40 AM EDT Office Visit [facility] [address] [facility] [address] [place] [address] Bonifacio Stern DO [address] [facility] [address] [place] [address] [facility] Start: 03-19-2025 Influenza vaccination [facility] Start: 03-14-2025 End: 03-14-2025 Patient encounter procedure 03/14/2025 1:30 PM EDT Office Visit [facility] [address] [place] [address] Mk Garcia MD [address] [place] [phone] [facility] Start: 03-12-2025 End: 03-12-2025 Patient encounter procedure 03/12/2025 1:30 PM EDT Office Visit [facility] [address] [place] [address] Mk Garcia MD [address] [place] [address] [facility] Start: 12-06-2024 End: 12-06-2025 Basic metabolic 1998 panel - Serum or Plasma Basic metabolic panel Lab Routine Essential hypertension, benign (CMS/HCC) Expected: 12/06/2024 (Approximate), Expires: 12/06/2025 [facility] Comment on above: Expected: 12/06/2024 (Approximate), Expi res: 12/06/2025 Start: 12-06-2024 End: 12-06-2025 CBC W Auto Differential panel - Blood CBC and differential Lab Routine Encounter for long-term current use of medication Expected: 12/06/2024 (Approximate), Expires: 12/06/2025 [facility] Comment on above: Expected: 12/06/2024 (Approximate), Expi res: 12/06/2025 Start: 12-06-2024 End: 12-06-2025 Hemoglobin A1c/Hemoglobin.total in Blood Hemoglobin A1c Lab Routine Type 2 diabetes mellitus with hyperglycemia, without long-term current use of insulin (CMS/HCC) Expected: 12/06/2024 (Approximate), Expires: 12/06/2025 [facility] Comment on above: Expected: 12/06/2024 (Approximate), Expi res: 12/06/2025 Start: 12-06-2024 End: 12-06-2025 Hepatic function 2000 panel - Serum or Plasma Hepatic function panel Lab Routine Encounter for long-term current use of medication Expected: 12/06/2024 (Approximate), Expires: 12/06/2025 [facility] Comment on above: Expected: 12/06/2024 (Approximate), Expi res: 12/06/2025 Start: 12-06-2024 End: 12-06-2025 Lipid 1996 panel - Serum or Plasma Lipid panel Lab Routine Dyslipidemia (CMS/HCC) Expected: 12/06/2024 (Approximate), Expires: 12/06/2025 [facility] Comment on above: Expected: 12/06/2024 (Approximate), Expi res: 12/06/2025 Start: 12-06-2024 End: 12-06-2025 Microalbumin/Creatinine panel in random Urine Microalbumin / creatinine, urine ratio Lab Routine Type 2 diabetes mellitus with hyperglycemia, without long-term current use of insulin ([facility]) Expected: 12/06/2024 (Approximate), Expires: 12/06/2025 [facility] Work Phone: Comment on above: Expected: 12/06/2024 (Approximate), Expi res: 12/06/2025 Start: 12-06-2024 End: 12-06-2025 Thyrotropin [Units/volume] in Serum or Plasma TSH Lab Routine Fatigue, unspecified type Expected: 12/06/2024 (Approximate), Expires: 12/06/2025 [facility] Comment on above: Expected: 12/06/2024 (Approximate), Expi res: 12/06/2025 Start: 12-06-2024 End: 12-06-2024 Patient encounter procedure 12/06/2024 7:15 AM EDT [facility] [address] [place] [phone] Mk Garcia MD [address] [place] [phone] Arrived [facility] Comment on above: Arrived Start: 11-14-2024 End: 11-14-2025 Alanine aminotransferase [Enzymatic activity/volume] in Serum or Plasma by With P-5'-P Alanine Aminotransferase Lab Routine Two-vessel coronary artery disease Essential hypertension Expected: 11/14/2024 (Approximate), Expires: 11/14/2025 [facility] Service Area Work Phone: Comment on above: Expected: 11/14/2024 (Approximate), Expi res: 11/14/2025 Start: 11-14-2024 End: 11-14-2025 Aspartate aminotransferase [Enzymatic activity/volume] in Serum or Plasma by With P-5'-P Aspartate Aminotransferase Lab Routine Two-vessel coronary artery disease Essential hypertension Expected: 11/14/2024 (Approximate), Expires: 11/14/2025 [facility] Work Phone: Comment on above: Expected: 11/14/2024 (Approximate), Expi res: 11/14/2025 Start: 11-14-2024 End: 11-14-2025 Basic metabolic 2000 panel - Serum or Plasma Basic Metabolic Panel Lab Routine Two-vessel coronary artery disease Essential hypertension Expected: 11/14/2024 (Approximate), Expires: 11/14/2025 [facility] Work Phone: Comment on above: Expected: 11/14/2024 (Approximate), Expi res: 11/14/2025 Start: 11-14-2024 End: 11-14-2025 Lipid 1996 panel - Serum or Plasma Lipid Panel Lab Routine Two-vessel coronary artery disease Essential hypertension Expected: 11/14/2024 (Approximate), Expires: 11/14/2025 [facility] Work Phone: Comment on above: Expected: 11/14/2024 (Approximate), Expi res: 11/14/2025 Start: 11-08-2024 End: 11-08-2024 Patient encounter procedure 11/08/2024 11:30 AM EDT Office Visit [facility] [address] [facility] [address] [place] [phone] Deirdre Calles, MARINE EQUIPMENT SALES ENGINEER-SQL SSRS DEVELOPER [address] [facility] [address] [place] [address] [facility] Start: 09-14-2024 Hemoglobin A1c measurement Diabetes: Hemoglobin A1C [facility] Start: 08-28-2024 US Thoracic and abdominal aorta [facility] Start: 07-07-2024 End: 07-07-2024 Patient encounter procedure 07/07/2024 11:00 AM EST Office Visit [facility] [address] [place] [address] Mk Garcia MD [address] [place] [phone] [facility] Start: 05-25-2024 Urine screening for protein Diabetes: Urine Protein Screening [facility] Start: 05-23-2024 End: 05-23-2024 Patient encounter procedure 05/23/2024 2:30 PM EST Office Visit [facility] [address] [place] [phone] Mk Garcia MD [address] [place] [phone] [facility] Start: 05-22-2024 End: 05-22-2025 Comprehensive metabolic 2000 panel - Serum or Plasma Comprehensive metabolic panel Lab Routine Choledocholithiasis Belching Abdominal discomfort Expected: 05/22/2024 (Approximate), Expires: 05/22/2025 [facility] Service Area Work Phone: Comment on above: Expected: 05/22/2024 (Approximate), Expi res: 05/22/2025 Start: 05-22-2024 End: 05-22-2025 US Abdomen US abdomen complete Imaging Routine Choledocholithiasis Belching Abdominal discomfort Expected: 05/22/2024, Expires: 05/22/2025 [facility] Work Phone: Comment on above: Expected: 05/22/2024, Expires: Start: 05-10-2024 End: 05-10-2024 Patient encounter procedure 05/10/2024 11:10 AM EDT Office Visit [facility] [address] [facility] [address] [place] [address] Bonifacio Stern DO [address] [place] [address] [facility] Start: 04-11-2024 End: 04-11-2024 Patient encounter procedure [facility] Comment on above: Arrived Start: 03-19-2024 COVID-19 Vaccine ( season) COVID-19 Vaccine ( season) [facility] Start: 03-19-2024 COVID-19 Vaccine ( season) COVID-19 Vaccine () [facility] Start: 03-19-2024 Influenza vaccination [facility] Start: 03-17-2024 Glaucoma screening Diabetes: Retinopathy Screening [facility] Start: 03-14-2024 End: 03-14-2024 Patient encounter procedure [facility] Comment on above: Arrived Start: 03-14-2024 End: 03-14-2025 Basic metabolic 1998 panel - Serum or Plasma Basic metabolic panel Lab Routine Stage 3a chronic kidney disease (HCC) ([facility]/HCC) Expected: 03/14/2024 (Approximate), Expires: 03/14/2025 [facility] Comment on above: Expected: 03/14/2024 (Approximate), Expi res: 03/14/2025 Start: 03-14-2024 End: 03-14-2025 CBC W Auto Differential panel - Blood CBC and differential Lab Routine Encounter for long-term current use of medication Expected: 03/14/2024 (Approximate), Expires: 03/14/2025 [facility] [facility] Comment on above: Expected: 03/14/2024 (Approximate), Expi res: 03/14/2025 Start: 03-14-2024 End: 03-14-2025 Hemoglobin A1c/Hemoglobin.total in Blood Hemoglobin A1c Lab Routine Type 2 diabetes mellitus with hyperglycemia, without long-term current use of insulin ([facility]) Expected: 03/14/2024 (Approximate), Expires: 03/14/2025 [facility] Work Phone: Comment on above: Expected: 03/14/2024 (Approximate), Expi res: 03/14/2025 Start: 01-19-2024 [facility] Start: 11-30-2023 End: 11-30-2023 Patient encounter procedure 11/30/2023 1:30 PM EDT Office Visit [facility] [address] [place] [address] Mk Garcia MD [address] [place] [address] [facility] Start: 09-08-2023 FUV, Provider: Bonifacio Stern, Status: Pen, Time: 10:20 AM FUV, Provider: Bonifacio Stern, Status: Pen, Time: 10:[address] [facility] 250 DO Work Phone: Start: 09-08-2023 End: 09-08-2023 Patient encounter procedure 09/08/2023 10:20 AM EST Office Visit [facility] [address] [facility] [address] [place] [address] Bonifacio Stern, DO [address] [facility] [address] [place], [place] [id number] [facility] Start: 09-01-2023 End: 09-01-2023 Patient encounter procedure 09/01/2023 10:30 AM EST Office Visit [facility] [address] [place] [address] Mk Garcia MD [address] [place] [address] Arrived [facility] Comment on above: Arrived Start: 07-08-2023 [facility] Start: 07-07-2023 [facility] Start: 07-07-2023 Stool culture for bacteria Stool Culture [facility] Start: 07-06-2023 Hospital admission [facility] Start: 07-06-2023 [facility] Start: 06-21-2023 US scan of aorta US aorta [facility] Start: 06-21-2023 US Thoracic and abdominal aorta [facility] Start: 04-21-2023 FANI, Provider: AARON LARSON [place] [facility] 1,[id number], Status: Pen, Time: 10:00 AM FANI, Provider: AARON LARSON [place] [facility] 1,[id number], Status: Pen, Time: 10:00 AM [facility] 250 DO Work Phone: Start: 03-19-2023 COVID-19 Vaccine ( season) COVID-19 Vaccine ( season) [facility] Start: 03-19-2023 Influenza vaccination Influenza Vaccine (#1) [facility] Start: 02-25-2023 FUV, Provider: Bonifacio Stern, Status: Pen, Time: 11:10 AM FUV, Provider: Bonifacio Stern, Status: Pen, Time: 11:10 AM [facility] 250 DO Work Phone: Start: 02-25-2023 Patient encounter procedure [facility] [place] Start: 11-17-2022 POV, Provider: Franky Mattson, Status: Pen, Time: 1:15 PM POV, Provider: Franky Mattson, Status: Pen, Time: 1:15 PM [facility] Work Phone: Start: 11-11-2022 [facility], Provider: Franky Mattson, Status: Pen, Time: 10:00 AM [facility], Provider: Franky Mattson, Status: Pen, Time: 10:00 AM [facility] Work Phone: Start: 10-13-2022 Patient encounter procedure [facility] Med Surg [place] Start: 10-07-2022 End: 10-08-2023 Insulin Lispro Mild [...] End: 07-Oct-2023 Ordered: 07-Oct-2022 Maria Luisa Cerna Intent [facility] Start: 10-05-2022 End: 10-06-2023 [facility] Comment on above: IF patient HAS a [...] pelvic blood vessel CT angio abdomen pelvis [facility] Start: 10-03-2022 CTA Abdominal vessels and Pelvis vessels W contrast IV [facility] Start: 09-29-2022 [facility] Start: 09-26-2022 Hospital admission [facility] Start: 09-26-2022 Referral to shuttle fixer [facility] Start: 08-28-2022 COVID-19 Vaccine (4 - Pfizer series) COVID-19 Vaccine (4 - Pfizer series) [facility] Start: 05-27-2022 FUV, Provider: Bonifacio Stern, Status: Pen, Time: 11:20 AM FUV, Provider: Bonifacio Stern, Status: Pen, Time: 11:20 AM [place] [address] DO Work Phone: Start: 05-27-2022 [facility] Start: 05-20-2022 IR Angiogram w/TLA/Stent Left Arm (Not Applicable) IR Angiogram w/TLA/Stent Left Arm (Not Applicable) [facility] Start: 03-30-2022 [facility] Start: 03-16-2022 US scan of gallbladder US gall bladder [facility] Start: 03-16-2022 Computed tomography angiography of abdominal and/or pelvic blood vessel CT angio abdomen pelvis [facility] Start: 03-16-2022 End: 03-16-2022 Emergency department patient visit [facility] Start: 02-24-2022 End: 02-24-2022 [facility] Start: 10-30-2021 FUV, Provider: Deirdre Tristan, Status: Pen, Time: 2:30 PM FUV, Provider: Deirdre Tristan, Status: Pen, Time: 2:30 PM [facility] 600 DO Work Phone: Start: 02-16-2017 Pneumococcal vaccination Pneumococcal Vaccine (2 of 2 - PCV) [facility] Start: 02-16-2017 Pneumococcal Vaccine: 65+ Years (2 - PCV) Pneumococcal Vaccine: 65+ Years (2 - PCV) [facility] Start: 02-16-2017 Pneumococcal Vaccine: 65+ Years (2 of 2 - PCV) Pneumococcal Vaccine: 65+ Years (2 of 2 - PCV) [facility] Start: 11-10-2015 Abdominal aortic aneurysm screening Abdominal Aortic Aneurysm (AAA) Screening [facility] Start: 2010 RSV High Risk: (Elderly (60+) or Population) (1 - Risk 60-74 years 1-dose series) RSV High Risk: (Elderly (60+) or Population) (1 - Risk 60-74 years 1-dose series) [facility] Start: 2010 RSV patients and/or patients aged 60+ years (1 - 1-dose 60+ series) RSV patients and/or patients aged 60+ years (1 - 1-dose 60+ series) [facility] Start: 2000 Zoster Vaccines (1 of 2) Zoster Vaccines (1 of 2) [facility] Start: 1972 DTaP/Tdap/Td Vaccines (1 - Tdap) DTaP/Tdap/Td Vaccines (1 - Tdap) [facility] Start: 1969 Hepatitis A Vaccines (1 of 2 - Risk 2-dose series) Hepatitis A Vaccines (1 of 2 - Risk 2-dose series) [facility] Start: 1969 Urine screening for protein Diabetes: Urine Protein Screening [facility] Start: 1968 Hepatitis C screening Hepatitis C Screening [facility] Start: 1960 Diabetic foot examination Diabetes: Foot Exam [facility] Start: 1960 Glaucoma screening Diabetes: Retinopathy Screening [facility] Start: 1950 Annual wellness visit Medicare Initial Physical (IPPE) [facility] Start: 1950 Hemoglobin A1c measurement Diabetes: Hemoglobin [facility]C [facility] Start: 1950 Lipid panel Lipid Panel [facility] Start: 1950 Medicare Annual Wellness (AWV) Medicare Annual Wellness (AWV) [facility] Start: 1950 Medicare Annual Wellness Visit Medicare Annual Wellness Visit (AWV) [facility] Start: 1950 Screening for malignant neoplasm of colon [facility] Start: 1950 Urine screening for protein Diabetes: Urine Protein Screening [facility] Ova and parasites identified in Unspecified specimen by Light microscopy [facility] Patient Education [facility] Work Phone: Patient referral [facility] Work Phone: End: 05-26-2024 US Abdomen [facility] Service Area Work Phone: Comment on above: Once for 1 Occurrences starting 05/26/20 until 05/26/2024 Immunizations Immunization Date Immunization Notes Care Provider Maximilian jones 07-03-2022 Pfizer COVID-19 Vac Bivalent 30 MCG/0.3ML Intramuscular Suspension Mk Weeksr Work Phone: [facility] 250 DO Work Phone: 07-02-2022 Seasonal, quadrivale nt, recombinant, injectable influenza vaccine, preservative free Mk A Naderer Work Phone: [facility] 250 DO Work Phone: 07-02-2022 influenza virus vacc ine, unspecified formulation Alyssia Weber MD Work Phone: [facility] Work Phone: 07-05-2021 Pfizer-BioNTech COVI D-19 Vacc 30 MCG/0.3ML Intramuscular Suspension Deirdre Calles MARINE EQUIPMENT SALES ENGINEER-SQL SSRS DEVELOPER Work Phone: [facility] 600 DO Work Phone: 10-09-2020 Pfizer-BioNTech COVI D-19 Vacc 30 MCG/0.3ML Intramuscular Suspension Deirdre Luisjay Calles MARINE EQUIPMENT SALES ENGINEER-SQL SSRS DEVELOPER Work Phone: [facility] 600 DO Work Phone: 09-18-2020 Pfizer-BioNTech COVI D-19 Vacc 30 MCG/0.3ML Intramuscular Suspension Deirdre Luisjay Calles MARINE EQUIPMENT SALES ENGINEER-SQL SSRS DEVELOPER Work Phone: [facility] 600 DO Work Phone: 05-19-2018 influenza virus vacc ine, unspecified formulation Deirdre Caijay Calles MARINE EQUIPMENT SALES ENGINEER-SQL SSRS DEVELOPER Work Phone: [place] [address] DO Work Phone: 04-18-2016 influenza virus vacc ine, unspecified formulation Deirdre Calles MARINE EQUIPMENT SALES ENGINEER-SQL SSRS DEVELOPER Work Phone: [place] [address] DO Work Phone: 02-17-2016 pneumococcal polysaccharide vaccine, 23 valent Deirdre Calles MARINE EQUIPMENT SALES ENGINEER-SQL SSRS DEVELOPER Work Phone: [facility] 600 DO Work Phone: 05-19-2015 influenza virus vacc ine, unspecified formulation Deirdre Calles MARINE EQUIPMENT SALES ENGINEER-SQL SSRS DEVELOPER Work Phone: [facility] 600 DO Work Phone: 05-28-2014 influenza, injectabl e, quadrivalent, contains preservative Tani Vargas Other [facility] 05-19-2014 influenza virus vacc ine, unspecified formulation Deirdre Calles MARINE EQUIPMENT SALES ENGINEER-SQL SSRS DEVELOPER Work Phone: [facility] 600 DO Work Phone: 07-19-2012 influenza virus vacc ine, unspecified formulation Deirdre Calles MARINE EQUIPMENT SALES ENGINEER-SQL SSRS DEVELOPER Work Phone: [facility] 600 DO Work Phone: 07-19-2010 influenza virus vacc ine, unspecified formulation Alyssia Weber MD Work Phone: [facility] Work Phone: 07-19-2006 pneumococcal polysaccharide vaccine, 23 valent Deirdregabriel Calles MARINE EQUIPMENT SALES ENGINEER-SQL SSRS DEVELOPER Work Phone: [facility] 600 DO Work Phone: influenza virus vacc ine, unspecified formulation Deirdre Cai Stevan MARINE EQUIPMENT SALES ENGINEER-SQL SSRS DEVELOPER Work Phone: [facility] 600 DO Work Phone: Comment on above: 2011 2010 Payers Date Payer Category Payer Self-pay [id number] 2022 Dual Eligibility Medicare/Medicaid Organization [facility] DUAL COMPLETE [id number] 2022 Medicare [employer]ICARE UHC DUAL COMPLETE [id number] 2022-Present [address] [place] [address] [id number] 2022 Medicare (Managed Care) [facility] MEDICARE [id number] 2022 Private Health Insurance [id number] .[id number] 2017 Medicaid [id number] .[id number] 2017 Unknown [id number] 1959 Medicaid [id number] 2.16.840.1.259904.19 1959 Medicare [id number] 2.16.840.1.242958.19 1950 Unknown [id number] 2.16.840.1.956639.3.579.2 .593 1950 Unknown [id number] 2.16.840.1.231221.3.579.2 .593 1950 Unknown [id number] 2.16.840.1.807305.3.579.2 .593 1950 Unknown [id number] 2.16.840.1.259949.3.579.2 .593 1950 Unknown [id number] 2.16.840.1.592154.3.579.2 .593 1950 Unknown [id number] 2.16.840.1.482204.3.579.2 .1069 1950 Unknown [id number] 2.16.840.1.506012.3.579.2 .1069 1950 Unknown [id number] 2.16.840.1.377821.3.579.2 .1069 1950 Unknown [id number] 2.16.840.1.998976.3.579.2 .356 1950 Unknown [id number] 2.16.840.1.379810.3.579.2 .356 1950 Unknown [id number] 2.16.840.1.850251.3.579.2 .356 1950 Unknown [id number] 2.16.840.1.377924.3.579.2 .356 1950 Unknown [id number] 2.16.840.1.700856.3.579.2 .1950 Unknown [id number] 2.16.840.1.231386.3.579.2 .356 1950 Unknown [id number] 2.16.840.1.953627.3.579.2 .356 1950 Unknown [id number] 2.16840.1.590505.3.579.2 .356 1950 Unknown [id number] 2.16.840.1.842469.3.579.2 .1245 1950 Unknown [id number] 2.16.840.1.689273.3.579.2 .1244 1950 Unknown [id number] 2.16.840.1.009684.3.579.2 .1258 1950 Unknown [id number] 2.16.840.1.349663.3.579.2 .125 1950 Unknown [id number] 2.16.840.1.242912.3.579.2 .125 1950 Unknown [id number] 2.16.840.1.852937.3.579.2 .124 1950 Unknown [id number] 2.16.840.1.853372.3.579.2 .124 1950 Unknown [id number] 2.16.840.1.414259.3.579.2 .1244 1950 Unknown [id number] 2.16.840.1.753468.3.579.2 .727 Medicare Medicare [id number] Private Health Insurance [employer] [facility] [id number] Unknown Unknown [id number] 2.16.840.1.327580.3.579.2 .531 Unknown [id number] 2.16.840.1.252711.3.579.2 .531 Social History Date Type Detail Facility Start: 07-23-2022 End: 12-06-2024 Daily caffeine consumption, 1 serving a day Daily caffeine consumption, 1 serving a day [facility] Comment on above: 09/19 PPD; Start: 01-02-2022 Tobacco smoking status Light tobacco smoker (finding) [facility] Start: 07-23-2022 End: 12-06-2024 Sex Assigned At Male [employer] Other Start: 03-16-2022 End: 01-19-2024 Tobacco smoking status NHIS Smoker (finding) [facility] Start: 1950 Sex Assigned At Male F [facility] Tobacco smoking consumption unknown [facility] Start: 1950 Sex Assigned At Not on file [facility] Work Phone: Start: 04-11-2023 End: 11-14-2024 Exposure to SARS-CoV-2 (event) Not sure [facility] Start: 07-29-2023 End: 2023 Tobacco smoking status NHIS Smokes tobacco daily [facility] History of tobacco use Cigarette Smoker [facility] Start: 2023 Tobacco use and exposure Smokeless tobacco non-user [facility] Work Phone: Start: 2023 End: 11-14-2024 Alcoholic beverage intake Lifetime non-drinker (finding) [facility] Work Phone: Start: 08-28-2024 End: 08-29-2024 Sex Male (finding) [facility] Medical Equipment Procedure Code Equipment Code Equipment Origin al Text Equipment Identifier Dates AAA repair with graft Cardiovascular patch, animal-derived [id number] FDA Start: 07-28-2021 AAA repair with graft Abdominal aorta endovascular stent-graft [id number] FDA Start: 07-28-2021 AAA repair with graft Abdominal aorta endovascular stent-graft [id number] FDA Start: 07-28-2021 AAA repair with graft Abdominal aorta endovascular stent-graft [id number] FDA Start: 07-28-2021 FDA Start: 10-21-2018 CL [...] In Vi tro route Daily as needed [id number] CL STENT LORE 2.5 X 18 FDA Start: 10-21-2018 CL STENT LORE 2.5 X 18 FDA Start: 10-21-2018 CL STENT LORE 2.5 X 18 FDA Start: 10-21-2018 Goals Date Patient Goal Desired Activity /State Functional Status Date Assessment Result Facility 07-08-2023 Functional status Patient at [facility] Work Phone: 09-29-2022 Functional status Patient at [facility] Work Phone: 01-02-2022 Functional Status N/A [facility] [place] Functional observable [facility] Mental Status Date Assessment Result Facility 07-08-2023 Cognitive function Cognitive Sta tus Patient at Baseline [facility] Work Phone: 10-08-2022 Cognitive functi ons [id number] [facility] 09-29-2022 Cognitive function Cognitive Sta tus Patient at Baseline [facility] Work Phone: Clinical Notes 07-28-2021 to [...] of cervical intervertebral disc Relevant Medications HYDROcodone-acetaminophen ([place]) 5-325 MG tablet documented in this encounter [facility] 11-14-2024 Evaluation + Plan note Associated Problem(s): BMI 28.0-28.9,adult Reviewed the merits of healthy lifestyle choices on overall cardiovascular health. [facility] Work Phone: 11-14-2024 Miscellaneous Notes Associated Problem(s): [...] decline pharmacological assistance. documented in this encounter [facility] Work Phone: 11-14-2024 Evaluation + Plan note Associated Problem(s): Cardiac and Vasculature September 2022 TTE LVEF 55 to 60% LVH mild Left atrium mildly dilated MR mild No prior documented dysrhythmia [facility] Work Phone: 11-14-2024 Evaluation + Plan note [...] less than 4 METS without concerning symptoms [facility] Work Phone: 11-14-2024 Evaluation + Plan note Associated Problem(s): Hyperlipidemia High intensity statin We will check annual labs [facility] Work Phone: 11-14-2024 Evaluation + Plan note Associated Problem(s): Essential hypertension Optimal in office [facility] Work Phone: 11-14-2024 Evaluation + Plan note Associated Problem(s): AAA (abdominal aortic aneurysm) Routinely with vascular August 2024 ultrasound stable infrarenal aneurysm, EVAR no leak [facility] Work Phone: 11-14-2024 Evaluation + Plan note Associated Problem(s): Current smoker 1 pack per day In past: quit for 5 years 'cold turkey' Continued every day tobacco use. Have reviewed the negative cardiovascular impact of nicotine. Continues to decline pharmacological assistance. [facility] [place] Work Phone: 11-14-2024 History of Presen t [...] mg iron) tablet 1 tablet, Daily HYDROcodone-acetaminophen ([place]) 5-325 mg tablet 1 tablet, Every 4 [...] we can help. You may also call 1-598-SCCG-NOW for free resources and assistance. Deirdre Calles MSN, MARINE EQUIPMENT SALES ENGINEER-SQL SSRS DEVELOPER, PMHNP-[facility] [place], [place] Please excuse any errors in grammar or translation related to this dictation. Voice recognition software was utilized to prepare this document. documented in this encounter [facility] Work Phone: 11-14-2024 Instructions LUIS EDUARDO Beltran [...] we can help. You may also call 2-813-BQPM-NOW for free resources and assistance. Ways to [...] your healthcare team if you have questions [facility]2021 documented in this encounter [facility] Work Phone: 08-28-2024 Evaluation note Diagnosis Onset Date Resolution Smoker acute August 28, 2024 8:17am Abdominal aortic aneurysm inactive August 28 8:17am [facility] Work Phone: 1(209) 314-607610-23-2024 History of Present illness Narrative* Bonifacio Stern, [...] mouth once daily., Disp: , Rfl: HYDROcodone-acetaminophen ([place]) 5-325 mg tablet, Take 1 tablet by [...] infarction (NSTEMI) 4. PVD (peripheral vascular disease) ([facility]) 5. Abdominal aortic aneurysm (AAA), unspecified part, unspecified whether ruptured ([facility]) 6. Mixed hyperlipidemia 7. Essential hypertension 8. Type 2 diabetes mellitus without complication, without long-term current use of insulin (Multi) 9. Neuropathy 10. Chronic obstructive pulmonary disease, unspecified COPD type (Multi) 11. Current smoker 12. BMI 27.0-27.9,adult Scribe Attestation By signing my name below, I, Emma Price LPN attest that this documentation has [...] exam, discussion and plan. documented in this [facility] Work Phone: 1(905) 789-100910-23-2024 Instructions* Patient Instructions* Lily Null LPN - [...] top notify Dr. Garcia documented in this [facility] Work Phone: 1(725) 770-383109-24-2024 History of Present illness Narrative* Mk Garcia [...] diet and limit carbs. documented [facility] [id number] History of Present illness Narrative* Mk Garcia [...] Orders CBC and differential documented in this [facility] [id number] [facility] History of Present illness Narrative* Bonifacio Stern, [...] by mouth once daily., Disp: ,Rfl: HYDROcodone-acetaminophen ([place]) 5-325 mg tablet, Take 1 tablet by [...] aneurysm (AAA), unspecified part, unspecified whether ruptured ([facility]) 7. Current smoker 8. BMI 27.0-27.9,adult Scribe Attestation By signing my name below, I, Trinidad Null LPN, Scrsantos attest that this documentation has been prepared [...] exam, discussion and plan. documented in this [facility] Work Phone: 1(832) 976-517504-23-2024 Instructions* Patient Instructions* Lily Null LPN - [...] Provided instructions on exercise. documented in this [facility] Work Phone: 1(358) 467-404202-14-2024 History of Present illness Narrative* Mk Garcia [...] metformin. Increase dietary fiber. documented in this encounterS[facility] CenterSafagrsdrj63-10-2350 Progress note Author Anton Fontenot [facility] July 07, 2023 11:05am Note Date/Time July 07, 2023 11:06am [facility] [address] [place] [address] Hospitalist Progress Note Signed Patient: Gopal Irving MR#: [id number] : 1950 Acct:[id number] Age/Sex: 72 / M Adm Date: 3 Loc: 4N Room: 6C3619-6 Type: ADM IN Attending Dr: Anton Fontenot [...] Lactated Ringers IV 07/05/24 17:44 75 mls/hr .[id number] KASSI Administration Ketorolac Tromethamine 30 mg 07/06/23 [...] <Electronically signed by Anton Fontenot DO> 07/07/23 0410 [facility] Work Phone: 1(602) 437-555912-20-2023 History and physical note Author Anton Fontenot [facility] July 06, 2023 10:35pm Note Date/Time July 06, 2023 5:56pm [facility] [address] [place] [address] Hospitalist H&P Signed Patient: Gopal Irving MR#: [id number] : 1950 Acct:[id number] Age/Sex: 72 / M Adm Date: 3 Loc: 4N Room: [address] [place] [address] Type: ADM IN Attending Dr: Anton Fontenot [...] testing negative. He was admitted to the [facility] floor for ongoing management of acute ileus [...] in the intermediate. On arrival to the [facility] floor the patient is uncomfortable appearing but [...] negative unless noted below or in HPI [facility] Medical History Aortic aneurysm COPD (chronic obstructive pulmonary disease) Problem List clean-up per request of Phys. EHR Cmte Depression Problem List clean-up per request of Phys. EHR Cmte Diabetes Problem List clean-up per request of Phys. EHR Cmte GERD (gastroesophageal reflux disease) Problem List clean-up per request of Phys. EHR Cmte Hypercholesteremia Problem List clean-up per request of Phys. EHR Cmte Myocardial infarction acute Problem List clean-up per request of Phys. EHR Cmte Smoker Problem List clean-up per request of Phys. EHR Cmte Surgical History Coronary angioplasty status Problem List clean-up per request of Phys. EHR Cmte H/O heart artery stent X12 Problem List clean-up per request of Phys. EHR Cmte History of ear surgery Problem List clean-up per request of Phys. EHR Cmte Family History Other No significant family history [...] % (Auto) 4.9 % (.) 07/06/23 13:15 [place] % (Auto) 2.2 % (.) 07/06/23 13:15 Eos % (Auto) 3.7 % (.) 07/06/23 13:15 Baso % (Auto) 0.6 % (.) 07/06/23 13:15 Nucleat RBC Rel Count 0.1 /100 WBC (0-0.5) 07/06/23 13:15 Neut # (Auto) 11.2 x10E3/uL (1.8-7.7) H 07/06/23 13:15 Lymph # (Auto) 0.6 x10E3/uL (1.00-4.8) L 07/06/23 13:15 [place] # (Auto) 0.3 x10E3/uL (0.0-0.8) 07/06/23 13:15 [...] pH 5.5 (5.0-9.0) 07/06/23 13:57 Ur Specific [place] 1.021 (1.001-1.030) 07/06/23 13:57 Urine Protein 300 [...] 17 48 Signed By: <Electronically signed by Anton Fontenot DO> 07/06/233 [facility] Work Phone: [phone] 881-385712-04-2023 Evaluation note* Encounter Date Diagnosis Assessment Notes [...] of the circulatory system (ICD-10 - Z86.79) [employer] Other 06-01-2023 NotePatient Name: Gopal Irving Procedure Date: 12/17/2022 9:41 AM Date of : 1950 Admit Type: Outpatient Site: [facility] Ethnicity: Not or Race: White Attending MD: Alyssia Weber MD, [id number] Procedure: ERCP Indications: Follow-up of bile duct stone(s), Follow-up of ascending cholangitis, Biliary stent removal Patient Profile: This is a 72 year old male. Refer to note in patient chart for documentation of history and physical. Providers: Alyssia Weber MD (Doctor), Jeevan Mcgovern RN (Nurse), Balbina Schuler, Career Developer Referring: Medicines: General Anesthesia Complications: No immediate [...] the physician, the nurse, the anesthesiologist, the program director/air personality and the school laboratory technician in the procedure room. Mental Status [...] patient tolerated the procedure well. Findings: A auditor internal film of the abdomen was obtained. Surgical clips, consistent with a previous cholecystectomy, were seen in the area of the right upper quadrant of the abdomen. A biliary stent was visible on the auditor internal film. The esophagus was successfully intubated under [...] Provider RoleProvider Name Franky Calvillo Kristen Nurse PractitionerHartley, Dianna PrimaryNaderer, Marc A Note Recipients: x Discharge: Summary: [...] Referenced From Consult-General Internal Medicine 11-Nov-2022 14:35[facility]04-26-2023 NotePost Operative Note: PreOp Diagnosis: History of cholangitis requiring ERCP and stent Post-Procedure Diagnosis: Same Procedure: 1. Laparoscopic cholecystectomy with intraoperative cholangiogram 2. 3. 4. 5. Surgeon: Srinivasan Resident/Fellow/Other Dialysis Clinical Manager: Anesthesia: General Estimated Blood Loss (mL): Minimal Specimen: yes Findings: IOC good Operative Report Dictated: Dictation: yes Date of Dictation: 11-Nov-2022 Attestation: Note Completion: Attending AttestationI performed the procedure without a resident Electronic Signatures: Franky Mattson) (Signed 11-Nov-2022 11:28) Authored: Post Operative Note, Note Completion Last Updated: 11-Nov-2022 11:28 by Franky Mattson)[facility] 11-11-2022 NoteHistory & Physical Reviewed: I have [...] Completion Last Updated: 11-Nov-2022 08:13 by Franky Mattson)[facility] 2022 NoteHistory of Present Illness: HPI: GOPAL IRVING is a 72 year old Male who presents for elective cholecystectomy. Patient initially presented with abdominal pain and abnormal liver function test. He was transferred to [facility]. He was found to have choledocholithiasis [...] surgery are again reviewed. Potential bleeding infection [place] PE etc. reviewed. The anticipated convalescence is [...] by Rip Mattson (more content not included)... [facility]03-23-2023 NoteSend Summary: Discharge Summary Providers: Provider RoleProvider Name Jarvis Tirado AttendingBethany Kelly Robert C PrimaryNaderer, Marc A Note Recipients: Mk Garcia MD - [id number] [] Franky Mattson MD HOSMER, AMY E Discharge: Summary: Admission Date: .05-Oct-2022 09:34:00 Discharge Date: 08-Oct-2022 Attending Physician at Discharge: Btehany Kelly Admission Reason: Acute on chronic abdominal [...] at Discharge: .Home Vital Signs: T PRBPMAPSpO2 [id number]/8298% Date/Time10/07 23: 23: 23: 23: 23:00 Range(35.8C [...] allowing us to participate in your care! -[facility] Inpatient Medicine Teaching Service. Home Care Certification: Home Care Agency: Home Team Skilled Disciplines Ordered: RN/CUTTER MACHINE, PT, OT Home Care Services: Home Care Skilled Service: assessment, Rehab (PT/OT/SP eval and treat) Follow Up Appointments: Follow-Up Appointment 01: Physician/Dept/Service: Dr. Mk Garcia Reason for Referral: Hospital follow up Call to Schedule in: 2-3 days Follow-Up Appointment 02: Physician/Dept/Service: Dr. Mattson Reason for Referral: Gallbladder surgery Call to Schedule in: 3 weeks Scheduled Date/Time: 13-Oct-2022 01:00 Location: [address] Hay [address] [place] [address] Follow-Up Appointment 03: Physician/Dept/Service: Dr. Harrington Reason for Referral: Biliary Stent Removal Call [...] bedtime) MiraLax oral po (more content not included)...[facility]03-20-2023 NoteHistory of Present Illness: HPI: GOPAL IRVING is a 71 year old Male with a past medical history of AAA s/p endovascular repair, left iliac artery aneurysm, HTN, current smoker, NIDDM 2, and HLD, who presented to [facility] with chronic abdominal pain and plans for pancreatic biopsy. He has been following with physicians at [facility] in [place] for chronic medical problems and most recently a pancreatic mass found on CT. Patient presenting with acute on chronic abdominal pain that been going on for months with extensive work-up at [facility]. He and his family state that symptoms [...] Drug Usedenies (1) Medications Prior to Admission: [place] 5 mg-325 mg oral tablet: 1 tab(s) [...] Objective: Objective Information: Objective Information T PRBPMAPSpO2 [id number]/9197% Date/Time10/05 10: 14: 14: 14: (more content not included)... [facility]03-20-2023 Reason for referral (narrative)* Reason 10/05/[address] Weber for pancreatic lesion. Referral faxed. Diagnosis 1 Pancreatic lesion (K 86.9) Referral Organization [facility] Gastroenterolo meli Referring Provider First Name Yemi Referring Provider Last Name Jean Claude Referring Provider Specialty Gastroenter ology Referred Organization [facility] Referred Address [address] [place] [address] ,[place], [place],[address] Referred Provider Specialty Gastroentero logy Referral Priority Routine Referral Appointment Date 2022-10-05 General Notes Taina Savage 0 09/29/2022 01:06:15 PM > Referral faxed by office. Taina Savage 10/06/2022 11:08:24 AM > Faxed letter to follow up. Taina Savage 10/07/2022 11:18:12 AM > ERCP results received from Dr. Weber and assigned to Dr. Silverio for review. Closing referral at this time. [employer] Other 03-14-2023 Evaluation note* Encounter Date Diagnosis Assessment Notes Treatment Notes Treatment Clinical Notes Sep, Pancreatic lesion (ICD-10 - K86.9) [employer] Other 12-12-2022 Hospital Discharge instructions Patient Education [...] urethra. Follow these instructions at home: Take pzuh-ymc-wiluuzi and prescription medicines only as told by [...] 07/05/2006 Document Revised: 05/30/2019 Document Reviewed: 08/09/2017 [employer] Patient Education 2020 [employer]. Follow Up Care 01/02/2022 09:40:56 With:MICH SCHAFER, Reji Mathews, URL Address: [facility] [address], [place] [address]- When: Unknown [facility] 11-08-2022 Evaluation note* Encounter Date Diagnosis [...] He understands and agrees with that plan [employer] Other [facility]* Encounter Date Diagnosis Assessment Notes [...] once he returns after his GI evaluation. [employer] Other 06-17-2022 Hospital Discharge instructions Patient Education [...] who: Are older than age 65. Are -Scottish. Are obese. Have a family history of [...] cells. Follow these instructions at home: Take ixeb-gxs-yupdkdm and prescription medicines only as told by [...] 07/05/2006 Document Revised: 06/17/2018 Document Reviewed: 03/15/2017 [employer] Patient Education [employer]. Follow Up Care 06/09/2021 11:59:54 With:MICH SCHAFER, Reji Mathews, URL Address: [facility] [address] , [place] [address]- [phone] When:07/04/2022 Comments:PSA, SELVIN [facility] Evaluation note* Encounter Date Diagnosis Assessment [...] understanding of all discussion, agree with questions. [employer] Other 01-21-2022 Evaluation note* Encounter Date Diagnosis [...] See him back once those are accomplished. [employer] Other 01-10-2022 History general Narrative - Reported* Type Description Date Medical History AAA Medical History Heart attack Medical History HTN Surgical History Bilat ear 1985 Surgical History Heart Stents (8) 2011 Surgical History Endovascular aneurysm repair Ash gallagher 07/2021 Surgical History Cardiac catheterization July 202107/2021 Hospitalization History No Hospitalization histo ry information [employer] Other 01-10-2022 History general Narrative - Reported* Type Description Date Medical History AAA Medical History Heart attack Medical History HTN Surgical History Bilat ear 1985 Surgical History Heart Stents (8) 2011 Surgical History Endovascular aneurysm repair Ja nuary 07/2021 Surgical History Cardiac catheterization July 202107/2021 Hospitalization History see above [employer] Other Evaluation + Plan note Future Appointments Appointment Date:06/29/2022 12:15:00 PM Scheduled Provider:Reji EPPS MD Location:[facility] Appointment Type:URO Office Visit Diagnostic Tests Pending * PSA Total 01/02/22 [facility] evaluation noteNo InformationNortCerahelix Other Evaluation noteNo assessment information available [facility] Work Phone: Evaluation note* Diagnosis Onset Date Resolution Status Abdominal pain acute Abnormal CT of the abdomen a cute Non-ST elevation myocardial infarction (NSTEMI), initial episode of care acute Hypertension chronic [facility] Work Phone: Evaluation note* Gastrointestinal: Abdomen soft and nontenderNondistendedNo Torres signEyes: Sclera clearConstitutional: Well developed, awake/alert/oriented x3, no distress, alert and cooperative [facility] Diagnosis Other specified complication of other internal prosthetic devices, implants and grafts, initial encounter Essential (primary) hypertension Unspecified essential hypertension Chronic obstructive pulmonary disease, unspecified (CMS/HCC) Type 2 diabetes mellitus without complications (CMS/HCC) Iron deficiency anemia, unspecified 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 oral hypoglycemic drugs Encounter for fitting and adjustment of other gastrointestinal appliance and device documented in this encounter [facility] Work Phone: Evaluation note* Diagnosis Onset Date Resolution Status Ileus acute [facility] Work Phone: Evaluation note* Diagnosis Diarrhea due to drug- Primary Diarrhea documented in this encounter [facility]* Diagnosis Two-vessel coronary artery disease Status post non-ST elevation myocardial infarction (NSTEMI) Essential hypertension Unspecified essential hypertension Mixed hyperlipidemia Type 2 diabetes mellitus without complication, without long-term current use of insulin ([facility]) Abdominal aortic aneurysm (AAA), unspecified part, unspecified whether ruptured (CMS-HCC) Current smoker BMI 27.0-27.9,adult documented in this encounter [facility] Work Phone: Evaluation note* Diagnosis Ileus (CMS/HCC)- [...] cervical intervertebral disc documented in this encounter [facility] HealthcareEvaluation note* Diagnosis Two-vessel coronary artery disease 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 Status post non-ST elevation myocardial infarction (NSTEMI) PVD (peripheral vascular disease) (CMS-HCC) Unspecified peripheral vascular disease Abdominal aortic aneurysm (AAA), unspecified part, unspecified whether ruptured (CMS-HCC) Mixed hyperlipidemia Essential hypertension Unspecified essential hypertension Type 2 diabetes mellitus without complication, without long-term current use of insulin (Multi) Neuropathy Mononeuritis of unspecified site Chronic obstructive pulmonary disease, unspecified COPD type (Multi) Current smoker BMI 27.0-27.9,adult documented in this encounter [facility] Work Phone: Evaluation note* Diagnosis Choledocholithiasis- Primary Calculus of bile duct without mention of cholecystitis or obstruction Belching Flatulence, eructation, and gas pain Abdominal discomfort Abdominal pain, unspecified site documented in this encounter [facility] Work Phone: Evaluation note* Diagnosis Choledocholithiasis Calculus of bile duct without mention of cholecystitis or obstruction Belching Flatulence, eructation, and gas pain Abdominal discomfort Abdominal pain, unspecified site documented in this encounter [facility] Work Phone: Evaluation note* Diagnosis Ileus (CMS/HCC)- [...] (CMS/HCC) Chronic kidney disease, stage 3b (HCC) ([facility]/HCC) Type 2 diabetes mellitus with diabetic peripheral angiopathy without gangrene (CMS/HCC) Degeneration of cervical intervertebral disc [facility]* Diagnosis Degeneration of cervical intervertebral disc [facility]* Diagnosis Type 2 diabetes mellitus with hyperglycemia, without long-term current use of insulin (CMS/HCC)- Primary Essential hypertension, benign (CMS/HCC) Essential hypertension, benign Major depressive disorder, recurrent episode, mild (HCC) ([facility]/HCC) Major depressive disorder, recurrent episode, mild Stage 3a chronic kidney disease (HCC) ([facility]/HCC) DDD (degenerative disc disease), lumbar Degeneration of lumbar or lumbosacral intervertebral disc Encounter for long-term current use of medication [facility] Diagnosis Degeneration of cervical intervertebral disc documented [facility]* Diagnosis Essential hypertension, benign (CMS/HCC)- Primary Essential hypertension, benign Type 2 diabetes mellitus with hyperglycemia, without long-term current use of insulin ([facility]/HCC) Type 2 diabetes mellitus with diabetic chronic kidney disease (CMS/HCC) Chronic kidney disease, stage 3b (HCC) ([facility]/HCC) Type 2 diabetes mellitus with diabetic peripheral angiopathy without gangrene ([facility]/HCC) documented [facility]* Diagnosis Ileus (CMS/HCC)- Primary Paralytic ileus Constipation due to opioid therapy Type 2 diabetes mellitus with hyperglycemia, without long-term current use of insulin ([facility]/HCC)- Primary Essential hypertension, benign (CMS/HCC) Essential hypertension, benign DDD (degenerative disc disease), lumbar Degeneration of lumbar or lumbosacral intervertebral disc Diarrhea, unspecified type Vitamin D deficiency Major depressive disorder, recurrent episode, mild (HCC) ([facility]/HCC) Major depressive disorder, recurrent episode, mild Gastroesophageal reflux disease without esophagitis Esophageal reflux Abdominal aortic aneurysm (AAA) without rupture, unspecified part ([facility]/HCC) Type 2 diabetes mellitus with hyperglycemia, without long-term current use of insulin (CMS/HCC)- Primary Essential hypertension, benign (CMS/HCC) Essential hypertension, benign Major depressive disorder, recurrent episode, mild (HCC) ([facility]/HCC) Major depressive disorder, recurrent episode, mild Stage 3a chronic kidney disease (HCC) ([facility]/HCC) DDD (degenerative disc disease), lumbar Degeneration of lumbar or lumbosacral intervertebral disc Encounter for long-term current use of medication Essential hypertension, benign ([facility]/HCC)- Primary Essential hypertension, benign Type 2 diabetes mellitus with hyperglycemia, without long-term current use of insulin ([facility]) Type 2 diabetes mellitus with diabetic chronic kidney disease ([facility]/HCC) Chronic kidney disease, stage 3b (HCC) ([facility]/HCC) Type 2 diabetes mellitus with diabetic peripheral angiopathy without gangrene ([facility]/HCC) Degeneration of cervical intervertebral disc documented in this encounter [facility] HealthcareEvaluation note* Diagnosis Ileus ([facility]/HCC)- Primary Paralytic ileus Constipation due to opioid therapy Type 2 diabetes mellitus with hyperglycemia, without long-term current use of insulin ([facility])- Primary Essential hypertension, benign ([facility]) Essential hypertension, benign DDD (degenerative disc disease), lumbar Degeneration of lumbar or lumbosacral intervertebral disc Diarrhea, unspecified type Vitamin D deficiency Major depressive disorder, recurrent episode, mild (HCC) ([facility]) Major depressive disorder, recurrent episode, mild Gastroesophageal reflux disease without esophagitis Esophageal reflux Abdominal aortic aneurysm (AAA) without rupture, unspecified part ([facility]) Type 2 diabetes mellitus with hyperglycemia, without long-term current use of insulin ([facility])- Primary Essential hypertension, benign (CMS/HCC) Essential hypertension, benign Major depressive disorder, recurrent episode, mild (HCC) ([facility]) Major depressive disorder, recurrent episode, mild Stage 3a chronic kidney disease (HCC) ([facility]) DDD (degenerative disc disease), lumbar Degeneration of lumbar or lumbosacral intervertebral disc Encounter for long-term current use of medication Essential hypertension, benign ([facility]/HCC)- Primary Essential hypertension, benign Type 2 diabetes mellitus with hyperglycemia, without long-term current use of insulin ([facility]) Type 2 diabetes mellitus with diabetic chronic kidney disease ([facility]/HCC) Chronic kidney disease, stage 3b (HCC) ([facility]) Type 2 diabetes mellitus with diabetic peripheral angiopathy without gangrene ([facility]/HCC) Degeneration of cervical intervertebral disc documented in this encounter [facility]* Diagnosis Ileus ([facility]/HCC)- Primary Paralytic ileus Constipation due to opioid therapy Type 2 diabetes mellitus with hyperglycemia, without long-term current use of insulin ([facility])- Primary Essential hypertension, benign (CMS/HCC) Essential hypertension, [...] (CMS/HCC) Chronic kidney disease, stage 3b (HCC) ([facility]/HCC) Type 2 diabetes mellitus with diabetic peripheral angiopathy without gangrene (CMS/HCC) Degeneration of cervical intervertebral disc Essential hypertension, benign (CMS/HCC) Essential hypertension, benign documented in this encounter [facility]* Diagnosis Essential hypertension- Primary Unspecified essential hypertension Two-vessel coronary artery disease Type 2 diabetes mellitus without complication, without long-term current use of insulin Mixed hyperlipidemia Abdominal aortic aneurysm (AAA), unspecified part, unspecified whether ruptured BMI 28.0-28.9,adult Current smoker documented in this encounter [facility] Work Phone: Evaluation note* Diagnosis Ileus (CMS/HCC)- Primary Paralytic ileus Constipation due to opioid therapy Type 2 diabetes mellitus with hyperglycemia, without long-term current use of insulin ([facility]/HCC)- Primary Essential hypertension, benign (CMS/HCC) Essential hypertension, benign DDD (degenerative disc disease), lumbar Degeneration of lumbar or lumbosacral intervertebral disc Diarrhea, unspecified type Vitamin D deficiency Major depressive disorder, recurrent episode, mild (HCC) (CMS/HCC) Major depressive disorder, recurrent episode, mild Gastroesophageal reflux disease without esophagitis Esophageal reflux Abdominal aortic aneurysm (AAA) without rupture, unspecified part ([facility]) Type 2 diabetes mellitus with hyperglycemia, without long-term current use of insulin ([facility])- Primary Essential hypertension, benign ([facility]/HCC) Essential hypertension, benign Major depressive disorder, recurrent episode, mild (HCC) ([facility]) Major depressive disorder, recurrent episode, mild Stage 3a chronic kidney disease (HCC) ([facility]) DDD (degenerative disc disease), lumbar Degeneration of lumbar or lumbosacral intervertebral disc Encounter for long-term current use of medication Essential hypertension, benign ([facility])- Primary Essential hypertension, benign Type 2 diabetes mellitus with hyperglycemia, without long-term current use of insulin ([facility]) Type 2 diabetes mellitus with diabetic chronic kidney disease ([facility]) Chronic kidney disease, stage 3b (HCC) ([facility]) Type 2 diabetes mellitus with diabetic peripheral angiopathy without gangrene ([facility]) Type 2 diabetes mellitus with hyperglycemia, without long-term current use of insulin ([facility])- Primary Essential hypertension, benign ([facility]) Essential hypertension, benign Degeneration of intervertebral disc of lumbar region with discogenic back pain and lower extremity pain Major depressive disorder, recurrent episode, mild (HCC) ([facility]) Major depressive disorder, recurrent episode, mild Vertigo Dizziness and giddiness Iron deficiency anemia secondary to inadequate dietary iron intake Encounter for long-term current use of medication Dyslipidemia ([facility]) Other and unspecified hyperlipidemia Fatigue, unspecified type Degeneration of 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 ([facility]) Chronic kidney disease, stage 3a (HCC) ([facility]) Type 2 diabetes mellitus with diabetic cataract ([facility]) Type II or unspecified type diabetes mellitus with ophthalmic manifestations, not stated as uncontrolled Type 2 diabetes mellitus with diabetic peripheral angiopathy without gangrene ([facility]) documented in this encounter [facility]* Diagnosis Ileus (HCC)- Primary Paralytic ileus Constipation due to opioid therapy Type 2 diabetes mellitus with hyperglycemia, without long-term current use of insulin (HCC)- Primary Essential hypertension, benign Essential hypertension, benign DDD (degenerative disc disease), lumbar Degeneration of lumbar or lumbosacral intervertebral disc Diarrhea, unspecified type Vitamin D deficiency Major depressive disorder, recurrent episode, mild Major depressive disorder, recurrent episode, mild Gastroesophageal reflux disease without esophagitis Esophageal reflux Abdominal aortic aneurysm (AAA) without rupture, unspecified part Type 2 diabetes mellitus with hyperglycemia, without long-term current use of insulin (HCC)- Primary Essential hypertension, benign Essential hypertension, benign Major depressive disorder, recurrent episode, mild Major depressive disorder, recurrent episode, mild Stage 3a chronic kidney disease (CMS-HCC) DDD (degenerative disc disease), lumbar Degeneration of lumbar or lumbosacral intervertebral disc Encounter for long-term current use of medication Essential hypertension, benign- Primary Essential hypertension, benign Type 2 diabetes mellitus with hyperglycemia, without long-term current use of insulin (HCC) Type 2 diabetes mellitus with diabetic chronic kidney disease (HCC) Chronic kidney disease, stage 3b (CMS-HCC) Type 2 diabetes mellitus with diabetic peripheral angiopathy without gangrene (HCC) Type 2 diabetes mellitus with hyperglycemia, without long-term current use of insulin (HCC)- Primary Essential hypertension, benign Essential hypertension, benign Degeneration of intervertebral disc of lumbar region with discogenic back pain and lower extremity pain Major depressive disorder, recurrent episode, mild Major depressive disorder, recurrent episode, mild Vertigo Dizziness and giddiness Iron deficiency anemia secondary to inadequate dietary iron intake Encounter for long-term current use of medication Dyslipidemia Other and unspecified hyperlipidemia Fatigue, unspecified type Degeneration of 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 (HCC) Chronic kidney disease, stage 3a ([facility]) Type 2 diabetes mellitus with diabetic cataract ([facility]) Type II or unspecified type diabetes mellitus with ophthalmic manifestations, not stated as uncontrolled Type 2 diabetes mellitus with diabetic peripheral angiopathy without gangrene ([facility]) Sinus congestion Other diseases of nasal cavity and sinuses Degeneration of cervical intervertebral disc documented in this encounter [facility] HealthcareEvaluation note* Diagnosis Ileus (HCC)- Primary Paralytic ileus Constipation due to opioid therapy Type 2 diabetes mellitus with hyperglycemia, without long-term current use of insulin (HCC)- Primary Essential hypertension, benign Essential hypertension, benign DDD (degenerative disc disease), lumbar Degeneration of lumbar or lumbosacral intervertebral disc Diarrhea, unspecified type Vitamin D deficiency Major depressive disorder, recurrent episode, mild Major depressive disorder, recurrent episode, mild Gastroesophageal reflux disease without esophagitis Esophageal reflux Abdominal aortic aneurysm (AAA) without rupture, unspecified part Type 2 diabetes mellitus with hyperglycemia, without long-term current use of insulin (HCC)- Primary Essential hypertension, benign Essential hypertension, benign Major depressive disorder, recurrent episode, mild Major depressive disorder, recurrent episode, mild Stage 3a chronic kidney disease (CMS-HCC) DDD (degenerative disc disease), lumbar Degeneration of lumbar or lumbosacral intervertebral disc Encounter for long-term current use of medication Essential hypertension, benign- Primary Essential hypertension, benign Type 2 diabetes mellitus with hyperglycemia, without long-term current use of insulin (HCC) Type 2 diabetes mellitus with diabetic chronic kidney disease (HCC) Chronic kidney disease, stage 3b (CMS-HCC) Type 2 diabetes mellitus with diabetic peripheral angiopathy without gangrene (HCC) Type 2 diabetes mellitus with hyperglycemia, without long-term current use of insulin (HCC)- Primary Essential hypertension, benign Essential hypertension, benign Degeneration of intervertebral disc of lumbar region with discogenic back pain and lower extremity pain Major depressive disorder, recurrent episode, mild Major depressive disorder, recurrent episode, mild Vertigo Dizziness and giddiness Iron deficiency anemia secondary to inadequate dietary iron intake Encounter for long-term current use of medication Dyslipidemia Other and unspecified hyperlipidemia Fatigue, unspecified type Degeneration of 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 (HCC) Chronic kidney disease, stage 3a (CMS-HCC) Type 2 diabetes mellitus with diabetic cataract (HCC) Type II or unspecified type diabetes mellitus with ophthalmic manifestations, not stated as uncontrolled Type 2 diabetes mellitus with diabetic peripheral angiopathy without gangrene (HCC) Degeneration of cervical intervertebral disc documented in this encounter [facility] HealthcareHistory and physical note Author Yemi Silverio [facility] March 30, 2022 1:26pm Note Date/Time March 30, 2022 1:26pm [facility] [address] [place] [address] Gastroenterology H&P Signed Patient: Gopal Irving MR#: [id number] : 1950 Acct:[id number] Age/Sex: 71 / M Adm Date: 2 [...] By: <Electronically signed by Yemi Silverio MD> 03/30/22 1326 [facility] Work Phone: History and physical note Author Yemi Silverio [facility] January 19, 2024 10:53am Note Date/Time January 19, 2024 10:52 am [facility] [address] [place] [address] Gastroenterology H&P Signed Patient: Gopal Irving MR#: [id number] : 1950 Acct:[id number] Age/Sex: 73 / M Adm Date: 4 [...] <Electronically signed by Yemi Silverio MD> 01/19/24 1053 [facility] Work Phone: Hiscvdk general Narrative - Reported* Type Description Date Medical History AAA Medical History Heart attack Medical History HTN Medical History [ ] Surgical History Bilat ear 1984 Surgical History Heart Stents () 2011 Surgical History Endovascular aneurysm repair [place] 07/2021 Surgical History Cardiac catheterization July 202107/2021 Surgical History [ ] Hospitalization History see above [facility] Other Hisssii general Narrative - Reported* Type Description Date Medical History AAA Medical History Heart attack Medical History HTN Medical History [ ] Surgical History Bilat ear 1984 Surgical History Heart Stents () 2011 Surgical History Endovascular aneurysm repair [facility] 07/2021 Surgical History Cardiac catheterization July 202107/2021 Hospitalization History see above [employer] Other History general Narrative - Reported* Type Description Date Medical History AAA Medical History Heart attack Medical History HTN Medical History [ ] Medical History chronic depression Surgical History Bilat ear 1985 Surgical History Heart Stents (8) 2011 Surgical History Endovascular aneurysm repair [place] 07/2021 Surgical History Cardiac catheterization July 202107/2021 Hospitalization History see above [facility] Other History of Present illness Narrative* Follow-Up [...] 10/11/2022 * Social History: * See Franky Srinivasan s office note 10/11/2022 * Review of [...] is no evidence of any obvious complications. Chataignier were removed and steri strips were placed. [...] may return at any time. * Mimi eRa MD MPH * General Surgery * Office: [phone] * [facility] [address] Work Phone: History of Present illness Narrative* [...] (325 mg) by mouth once daily. HYDROcodone-acetaminophen ([place]) 5-325 mg tablet Take 1 tablet by [...] 05/22/2024 Time: 10:50 AM [facility] course Narrative No data available for this section [facility] Hospital Discharge instructions Additional Instructions Follow-up with your primary care doctor Return to ED if you develop worsening symptoms [facility] Work Phone: Hospital Discharge instructions* Additional Orders:Additional Instructions: Please follow up with your primary care provider within 7 days for hospital follow up. Please call to make this appointment. Please take your medications asprescribed. Augmentin twice daily for 8 days, take with food. If you have any new or worsening symptoms seek medical attention.Thank you for allowing us to participate in your care!-[facility]. * Home Care Face to Face Certification:Home Care Services Needed: yesHome Care Agency: Home Team Skilled [employer]iplines Ordered: RN/CUTTER MACHINE, PT, OTFace to Face Encounter Completed: yesDate ofEncounter: [id number] Necessity for Homecare (based on clinical findings): [...] for Referral: Gallbladder surgeryScheduled Date/Time: 13-Oct-2022 01:00Location: [address] [place], [place] [address]Phone Number: [phone]: Please arrive 15 early to your appoinment and bring all insurance information * Follow Up Appointment 3:Physician/Dept/Service: Dr. Douglas for Referral: Biliary Stent RemovalPhone Number: [phone] [facility] No data available for this section [facility] progress note No data available for this section [facility] reason for referral (narrative)* Consultation (Routine) - Authorized Specialty Diagnoses / Procedures Referred By Aquilino valera Referred To Contact Cardiology Diagnoses Two-vessel coronary artery disease Procedures Follow Up In Cardiology Bonifacio Stern, [address] [facility] [address] [place] [address] Bonifacio Stern DO [address] [place] [address] Referral ID Status Reason Start Date Expiration Date V isits Requested Visits Authorized [id number] Authorized 2023 11/08/2024 1 1 [facility] Work Phone: Reason for visit Narrative* Imaging (Routine) - Pending Review Specialty Diagnoses / Procedures Referred By Aquilino valera Referred To Contact Radiology Diagnoses Choledocholithiasis Belching Abdominal discomfort Procedures US right upper quadrant US abdomen complete Sol Rhodes MD [address] [facility] [address] [place] [address] Phone: tel: fax: Referral ID Status Reason Start Date Expiration Date Visits Requested Visits Authorized [id number] Pending Review Perform Procedure 05/22/2024 05/22/2025 1 1 [facility] Work Phone: Family History No Family History Records FoundUnknown Family Member Name Dates Details Family history [...] returns following recent postoperative non- ST elevation [place] associated with endograft treatment for a large [...] took 3 to 5 minutes today to relationship counselor him on smoking cessation. * He remains [...] took 3 to 5 minutes today to relationship counselor him on smoking cessation. * He remains [...] falling. * Will otherwise follow-up within 1 [facility]. Rachna. 11/11.* GOPAL IRVING is being seen for a 8 month follow-up of. * 72-year-old gentleman returns for routine cardiovascular follow-up status post recent laparoscopic cholecystectomy at [facility]. He is otherwise doing well with no [...] follow-up status post recent laparoscopic cholecystectomy at [facility]. He is otherwise doing well with no [...] care Hypertension Chief Complaint sent by Dr cr4 Chief Complaint i71.4 abd pain,vomiting Reason for Visit Ileus Chief Complaint Diarrhea Diarrhea Chief Complaint Admit Date 1 YR F/U; ABD U/S August 28, 2024 8:17am Reason for Visit Admit Date Smoker August 28, 2024 8:17am Abdominal aortic aneurysm August 28, 2024 8:17am Advance Directives No Advanced Directives Records Found Advance Directive Response Recorded Date/ Time Advance [...] Mk Garcia MD Primary Care Provider Active Maryann Casillas , DIGITAL COMPUTER SYSTEMS ANALYST-C Attending Provider Active Team Status: Inactive Member Role Status Dates Mk Garcia MD Primary Care Provider Active Ubaldo Poole MD Admit Provider Active Yemi Silverio MD Other Provider Active Anton Fontenot DO Attending Provider Active Drafter Electrical Relationship Specialty Start Date End Date Mk Garcia MD PCP - General 10/15/21 Team Status: Inactive Member Role Status Dates Mk Garcia MD Primary Care Provider Active Va Ernst DO Emergency Provider Active Anton Fontenot DO Admit Provider, Attending Provider Active Drafter Electrical Relationship Specialty Start Date End Date Mk Garcia MD [address] [place] [address] PCP - General Family Medicine 09/01/23 Drafter Electrical Relationship Specialty Start Date End Date Mk Garcia MD [address] [place] [phone] PCP - General Family Medicine 09/01/23 Drafter Electrical Relationship Specialty Start Date End Date Mk Garcia MD [address] [place] [address] PCP - General Family Medicine 11/09/23 Team Status: Inactive Member Role Status Dates Mk Garcia MD Primary Care Provider Active S tart: January 19, 2024 End: January 19, 2024 Yemi Silverio MD Attending Provider Active S tart: January 19, 2024 End: January 19, 2024 Team Status: Active Member Role Status Dates Mk Garcia MD Primary Care Provider Active S tart: January 19, 2024 eYmi Silverio MD Attending Provider, Other Provide r Active Start: January 19, 2024 Drafter Electrical Relationship Specialty Start Date End Date Mk Garcia MD [address] [place] [phone] PCP - General Family Medicine 09/01/23 Drafter Electrical Relationship Specialty Start Date End Date Mk Garcia MD [address] [place] [address] PCP - General Family Medicine 11/09/23 Drafter Electrical Relationship Specialty Start Date End Date Mk Garcia MD [address] [place] [address] PCP - General Family Medicine 11/09/23 Sol Rhodes MD [address] [address] Surgeon Gastroenterology 05/19/24 Drafter Electrical Relationship Specialty Start Date End Date Mk Garcia MD [address] [place] [address] PCP - General Family Medicine 11/09/23 Sol Rhodes MD [address] [place] [address] Surgeon Gastroenterology 05/19/24 Drafter Electrical Relationship Specialty Start Date End Date Mk Garcia MD [address] [place] [address] PCP - General Family Medicine 09/01/23 Drafter Electrical Relationship Specialty Start Date End Date Mk Garcia MD [address] [place] [address] PCP - General Family Medicine 09/01/23 Drafter Electrical Relationship Specialty Start Date End Date Mk Garcia MD [address] [place] [address] PCP - General Family Medicine 09/01/23 Drafter Electrical Relationship Specialty Start Date End Date Mk Garcia MD [address] [place] [address] PCP - General Family Medicine 09/01/23 Drafter Electrical Relationship Specialty Start Date End Date Mk Garcia MD [address] [place] [address] PCP - General Family Medicine 09/01/23 Drafter Electrical Relationship Specialty Start Date End Date Mk Garcia MD [address] [place] [address] PCP - General Family Medicine 09/01/23 Drafter Electrical Relationship Specialty Start Date End Date Mk Garcia MD [address] [place] [address] PCP - General Family Medicine 09/01/23 Drafter Electrical Relationship Specialty Start Date End Date Mk Garcia MD [address] [place] [address] PCP - General Family Medicine 09/01/23 Drafter Electrical Relationship Specialty Start Date End Date Mk Garcia MD [address] [place] [address] PCP - General Family Medicine 09/01/23 Team Status: Inactive Member Role Status Dates Mk Garcia MD Primary Care Provider Active S tart: August 28, 2024 End: August 28, 2024 Tani Vargas MD Attending Provider Active S tart: August 28, 2024 End: August 28, 2024 Drafter Electrical Relationship Specialty Start Date End Date Mk Garcia MD [address] [place] [address] PCP - General Family Medicine 09/01/23 Drafter Electrical Relationship Specialty Start Date End Date Mk Garcia MD [address] [place] [address] PCP - General Family Medicine 11/09/23 Sol Rhodes MD [address] [address] Surgeon Gastroenterology 05/19/24 Drafter Electrical Relationship Specialty Start Date End Date Mk Garcia MD [address] [place] [address] PCP - General Family Medicine 09/01/23 Drafter Electrical Relationship Specialty Start Date End Date Mk Garcia MD [address] [place] [address] PCP - General Family Medicine 09/01/23 Drafter Electrical Relationship Specialty Start Date End Date Mk Garcia MD [address] [place] [address] PCP - General [facility] Medicine 09/01/23 Drafter Electrical Relationship Specialty Start Date End Date Mk Garcia MD [address] [place] [address] PCP - General Family Medicine 09/01/23 Drafter Electrical Relationship Specialty Start Date End Date Mk Garcia MD [address] [place] [address] PCP - General [facility] Medicine 09/01/23 REASON FOR VISIT (unrecogniz ed section and content) Reason Comments Follow-up 6 months Specialty Diagnoses / Procedures Referred By Aquilino valera Referred To Contact Cardiology Diagnoses Two-vessel coronary artery disease Procedures Follow Up In Cardiology Bonifacio Stern [address] [address] Phone: tel: fax: Bonifacio Stern [address] [address] Phone: tel: fax: Referral ID Status Reason Start Date Expiration Date V isits Requested Visits Authorized [id number] Authorized 2023 11/08/2024 1 1 Reason Comments Other ERCP stent removal K 86.9 K80.50 28159 Reason Comments Follow-up Loose stool for abou [...] Up In Cardiology Bonifacio Stern, DO [address] [facility] [address], [place] [address] Phone: tel: fax: Deirdre Calles, MARINE EQUIPMENT SALES ENGINEER-SQL SSRS DEVELOPER [address] [facility] [address], [address] [address] Phone: tel: fax: Referral ID Status Reason Start Date Expiration Date V isits Requested Visits Authorized [id number] Authorized 05/10/2024 05/10/2025 1 1 Reason Onset Date Comments Med Refill 11/20/2024 Reason Comments Vertigo Fell on wednesday Reason Onset Date Comments Med Refill 01/09/2025 Reason Onset Date Comments Med Refill 02/05/2025 Reason Onset Date Comments Med Refill 02/28/2025 Goals (unrecognized section and content) Goals may [...] and content) DATE CREATED AUTHOR 10/29/2022 [facility] DATE CREATED AUTHOR AUTHOR'S ORGANIZ ATION 12/28/2022 [facility] DATE CREATED AUTHOR AUTHOR'S ORGANIZ ATION 03/04/2023 [facility] DATE CREATED AUTHOR AUTHOR'S ORGANIZ ATION 03/04/2023 [employer] DATE CREATED AUTHOR AUTHOR'S ORGANIZ ATION 05/29/2024 [facility] DATE CREATED AUTHOR AUTHOR'S ORGANIZ ATION 05/31/2024 [facility] DATE CREATED AUTHOR AUTHOR'S ORGANIZ ATION 09/08/2024 [facility] DATE CREATED AUTHOR AUTHOR'S ORGANIZ ATION 12/12/2024 [facility] EPIC DATE CREATED AUTHOR AUTHOR'S ORGANIZ ATION 01/01/2025 [facility] DATE CREATED AUTHOR AUTHOR'S ORGANIZ ATION 03/01/2025 [facility] FOR RECORDS PERTAINING TO PATIENTS WHO ARE [...] BE BASED ON THE PRIMARY CLINICAL RECORDS. [facility]. provides no warranty or guarantee of the accuracy or completeness of information in this document.
== END 2025-03-02 11:30 | disposition home or self-care (01) ==
LOC: RAD 11:31
PROVIDERS: PCP Family Medicine; Visit Provider Urology
DX: N20.0 Calculus of kidney (principal)
CPT/HCPCS: 74018

== ENCOUNTER 2025-05-21 16:09 | Emergency (ER) | payer MEDICARE, SELFPAY ==
--- OUTSIDE RECORDS SUMMARY | 2025-05-16 09:40 | XMS_ITS | Encounter Summary ---
Author Organization [facility] Address [address] [place] [address] Phone Care Team Providers Care [employer] Professional Name Role Phone Mk Nichole MD Primary Care Provider + Lesia Rhodes MD Unavailable Reason for Referral * Consultation (Routine) - AuthorizedSpecialtyDiagnoses / ProceduresReferred By ContactReferred To ContactCardiology Diagnoses Two-vessel coronary artery disease Procedures Follow Up In Cardiology Bonifacio Stern DO [address] [address] Phone: tel: fax: Cristina Calles, RAILROAD SIGNAL OPERATOR-CONTRACTING ENGINEER 703 [facility] 2, [address] [address] Phone: tel: fax: Referral IDStatusReasonStart DateExpiration DateVisits RequestedVisits [id number]/29/202510/29/202611 Reason for Visit * ReasonCommentsFollow-up6m Follow up for Coronary Artery Disease * Consultation (Routine) - AuthorizedSpecialtyDiagnoses / ProceduresReferred By ContactReferred To ContactCardiology Diagnoses Two-vessel coronary artery disease Procedures Follow Up In Cardiology Cristina Calles, RAILROAD SIGNAL OPERATOR-[facility] 703 [facility] 2, [address] [address] Phone: tel: fax: Bonifacio Stern, DO [address] [place] [address] 2, [address] [address] Phone: tel: fax: Referral IDStatusReasonStart DateExpiration DateVisits RequestedVisits [id number]/29/20254/ Encounter Details DateTypeDepartmentCare Team (Latest Contact Info)Wczfjxtyvef87/29/2025 10:40 AM EDTOffice Visit [facility] [address] [phone] Bonifacio Stern, [address], [address] [address] Two-vessel coronary artery disease; Abdominal aortic aneurysm (AAA), unspecified part, unspecified whether ruptured; Essential hypertension; Mixed hyperlipidemia; Status post non-ST elevation myocardial infarction (NSTEMI); Type 2 diabetes mellitus without complication, without long-term current use of insulin (Multi); BMI 28.0-28.9,adult; Current smoker Discharge Disposition: Home Social History Tobacco UseTypesPacks/DayYears UsedDateSmoking Tobacco: Every DayCigarettes Smokeless Tobacco: Never Tobacco Cessation:Ready to Q uit: No; Counseling Given: Yes Alcohol UseStandard Drinks/WeekCommentsNever0 (1 standard drink = 0.6 oz pure alcohol)PHQ-2AnswerDate RecordedPatient Health Questionnaire-2 Ltqlj892 Sex and Gender InformationValueDate RecordedSex Assigned at BirthNot on file Legal YfyCfuj18/26/2022 6:45 PM ESTGender IdentityNot on fileSexual Orientation Not on filedocumented as of this encounter Last Filed Vital Signs Vital SignReadingTime TakenCommentsBlood Iofdasix336/8405/16/2025 10:59 AM EDT Gmwrl869305/16/2025 10:59 AM EDTTemperature--Respiratory Rate--Oxygen Saturation-- Inhaled Oxygen Concentration--Vewsik21.9 kg (174 lb)05/16/2025 10:59 AM EDT Qhszzc855.6 cm (5' 6 )05/16/2025 10:59 AM EDTBody Mass Index28.0805/16/2025 10:59 AM EDTdocumented in this encounter Functional Status * BPAnswerDate of SrnwkirttnFvqqeu078/8405/16/2025 10:59 AM Inga Roberts LPN * PulseAnswerDate of FhnbfisedqMazmiy4204/29/2025 10:59 AM Inga Roberts LPN * Communicable Disease ScreeningQuestionAnswerDate of AssessmentAuthorDo you have any of the following new or worsening symptoms?None of these05/16/2025 10:23 AM Marion Weston documented as of this encounter Patient Instructions * Patient Instructions* Luna Bray RN - 05/16/2025 10:40 AM EDT Please bring all medicines, vitamins, and herbal supplements with you when you come to the office. Prescriptions will not be filled unless you are compliant with your follow up appointments or have a follow up appointment scheduled as per instruction of your physician. Refills should be requested at the time of your visit. BMI was above normal measurement. Current weight: 78.9 kg (174 lb) Weight change since last visit (-) denotes wt loss -4 lbs Weight loss needed to achieve BMI 25: 19.4 Lbs Weight loss needed to achieve BMI 30: -11.5 Lbs Provided instructions on dietary changes Provided instructions on exercise. documented in this encounter Progress Notes * Bonifacio Stern DO - 05/16/2025 10:40 AM EDT Chief Complaint Patient presents with Follow-up 6m Follow up for Coronary Artery Disease Subjective Gopal Irving is a 74 y.o. male 74-year-old gentleman returns for 6-month follow-up, he is here today in a wheelchair for ease of ambulation; he is otherwise very sedentary at home however he is able to take care of household related chores repairs and activities. He is here with his daughter today. We continue to follow and treat him for ASHD, prior PCI's, RI in the past, diabetes, tobacco use that is ongoing, hyperlipidemia, history of AAA endograft repair. Most recent labs from December are reviewed, total triglycerides are 213, total cholesterol 121, LDL 38, HDL 41, creatinine 1.25, glucose 121 and A1c 6.5%. Patient has known ASHD with previous PCI's of the proximal and mid LAD and RCA remotely, follow-up heart catheterization in 2021 revealed widely patent stents in the segments with diffuse distal RCA and LAD disease with preserved left ventricular function, treated conservatively. He remains at highrisk for future cardiovascular and vascular events based on his ongoing comorbidities and smoking. Recent echocardiogram from the past year revealed normal LV function and is reviewed He is still smoking and we counseled him for 5 to 10 minutes of smoking cessation, ambulation, exercise; will continue current therapies given his reasonable asymptomatic status, follow-up with nursepractitioner in 1 year on same therapies Review of Systems All other systems reviewed and are negative. Vitals: 05/16/25 1059 BP: 116/84 BP Location: Left arm Patient Position: Sitting Pulse: 60 Weight: 78.9 kg (174 lb) Height: 1.676 m (5' 6 ) Objective Physical Exam Constitutional: Appearance: Normal [...] Thought content normal. Judgment: Judgment normal. Allergies Prednisone, Codeine, and Metformin Current Medications Current Outpatient Medications Medication Instructions amLODIPine (NORVASC) 5 mg, Daily cholecalciferol (Vitamin D-3) 50 MCG (1999) tablet 2 tablets, Daily clopidogrel (PLAVIX) 75 mg, oral, Daily esomeprazole (NexIUM) [address] capsule 1 capsule, 2 times daily FeroSuL 325 mg (65 mg iron) tablet 1 tablet, Daily HYDROcodone-acetaminophen (Fayette) 5-325 mg tablet 1 tablet, Every 4 hours PRN metFORMIN (GLUCOPHAGE) 500 mg, 2 times daily (morning and late afternoon) metoprolol succinate XL (TOPROL-XL) 25 mg, oral, Daily, Do not crush or chew. PARoxetine (PAXIL) 20 mg, Daily polyethylene glycol (GLYCOLAX, MIRALAX) 17 g, Daily PRN potassium chloride ER (Micro-K) 10 mEq ER capsule 10 mEq, oral, Daily rosuvastatin (CRESTOR) 20 mg, oral, Daily tolterodine LA (DETROL LA) 2 mg, Every Mon/Wed/Fri valsartan (DIOVAN) 160 mg, oral, 2 times daily Assessment/Plan 1. Two-vessel coronary artery disease Follow Up In Cardiology 2. Abdominal aortic aneurysm (AAA), unspecified part, unspecified whether ruptured 3. Essential hypertension 4. Mixed hyperlipidemia 5. Status post non-ST elevation myocardial infarction (NSTEMI) 6. Type 2 diabetes mellitus without complication, without long-term current use of insulin (Multi) 7. BMI 28.0-28.9,adult 8. Current smoker Scribe Attestation By signing my name below, ILuna RN , Scribe attest that this documentation has been [...] exam, discussion and plan. documented in this encounter Plan of Treatment DateTypeDepartmentCare Team (Latest Contact Info)Rzgdspdmgga34/27/2026 11:30 AM EDTOffice Visit [facility] 7[address] [facility] [address] [place] [phone] Cristina Calles, RAILROAD SIGNAL OPERATOR-CONTRACTING ENGINEER [address] [facility] [address] [place], [place] [phone] documented as of this encounter Visit Diagnoses Diagnosis Two-vessel coronary artery disease Abdominal aortic aneurysm (AAA), unspecified part, unspecified whether ruptured Essential hypertension Unspecified essential hypertension Mixed hyperlipidemia Status post non-ST elevation myocardial infarction (NSTEMI) Type 2 diabetes mellitus without complication, without long-term current use of insulin (Multi) BMI 28.0-28.9,adult Current smoker documented in this encounter Additional Health Concerns AssessmentNoted TimePHQ-9 Depression Total Score: 11007/23/2022 12:18 PM ESTA fall risk assessment has been completed for the lmsqmey9805/16/2025 10:57 AM EDT documented as of this encounter Care Teams Team MemberRelationshipSpecialtyStart DateEnd Date Mk Nichole MD [address] [place] [address] PCP - GeneralFamily Medicine11/09/23 Lesia Rhodes MD [address] [facility] [address] [place] [address] BmreuhhBaquwqcplogusapb05/1/24documented as of this encounter
[2025-05-21 16:19] VITALS: BP 133/99; PULSE 72; TEMP 36.6; O2SAT 100; BMI 27.6
--- OUTSIDE RECORDS SUMMARY | 2025-05-21 16:22 | XMS_ITS | Clinical Summary ---
Author Organization [facility] Address [address] [place] [address] Care Team Providers Care Mold Changer Name Role Phone Mk Nichole MD Primary Care Provider [phone] Allergies Active AllergyReactionsCriticalityNoted ScpnXyffrmauZsapichPvnymfn91/09/2024 Medications MedicationSigDispense QuantityRefillsLast FilledStart DateEnd DateStatus Aspirin Low Dose 81 MG EC tablet Take 1 tablet by mouth in the morning.Active potassium chloride ER (Micro-K) 10 MEQ ER capsule Take 1 capsule by mouth in the morning.07/05/2023ctive rosuvastatin (Crestor) 40 MG tablet Take 1 tablet by mouth in the morning.06/23/2023ctive tolterodine LA (Detrol LA) 2 MG 24 hr capsule Take 1 capsule by mouth every other day12/24/2022ctive valsartan (Diovan) 160 MG tablet Take 1 tablet by mouth in the morning and 1 tablet before bedtime.06/23/2023 Active Alcohol Swabs (Alcohol Pads) 70 % pads 1 each Daily as neededActive Blood Glucose Monitoring Suppl (Blood Glucose Monitor System) w/Device kit 1 Device Daily as neededActive Glucose Blood (BLOOD GLUCOSE TEST STRIPS 333 ) 1 strip by In Vitro route Daily as neededActive cholestyramine (Questran) 4 GM/DOSE powder Indications:Diarrhea, unspecified typeTake 1 packet (4 g) by mouth in the morning and 1 packet (4 g) at noon and 1 packet (4 g) in the evening. Take with meals. 90 packet ctive metoprolol succinate XL (Toprol-XL) 25 MG 24 hr tablet Indications:Essential hypertension, benignTake 1 tablet (25 mg) by mouth Daily 30 tablet 4Active clotrimazole (Lotrimin) 1 % cream Indications:Tinea crurisApply topically 2 (two) times a day 30 g ctive PARoxetine (Paxil) 20 MG tablet Indications:Depression, unspecifiedTAKE 1 TABLET BY MOUTH DAILY 90 tablet 4Active esomeprazole (NexIUM) [address] capsule Indications:Gastro-esophageal reflux disease without esophagitisTAKE 1 CAPSULE BY MOUTH TWICE DAILY 180 capsule ctive FeroSul 325 (65 Fe) MG tablet Indications:Other iron deficiency anemiasTAKE 1 TABLET BY MOUTH DAILY 90 tablet 5Active cholecalciferol (Vitamin D-3) 50 MCG (2000 UT) tablet Indications:Vitamin D deficiencyTake 1 tablet (50 mcg) by mouth Daily 90 tablet 5Active meclizine (Antivert) 25 MG tablet Indications:VertigoTake 1 tablet (25 mg) by mouth 4 (four) times a day as needed for dizziness 30 tablet 5Active metFORMIN XR (Glucophage-XR) 500 MG 24 hr tablet Indications:Type 2 diabetes mellitus without complications (HCC)TAKE 1 TABLET BY MOUTH TWICE DAILY 180 tablet 5Active amLODIPine (Norvasc) 5 MG tablet Indications:Essential hypertension, benignTAKE 1 TABLET BY MOUTH DAILY 30 tablet 5Active tiZANidine (Zanaflex) 4 MG tablet Indications:DDD (degenerative disc disease), lumbarTAKE 1 TABLET BY MOUTH THREE TIMES DAILY NEEDED 90 tablet 5Active fluticasone (Flonase) 50 MCG/ACT nasal spray Indications:Sinus congestionAdminister 2 sprays into each nostril Daily Shake gently. Before first use, prime pump. After use, clean tip and replace cap. 16 g 5Active Active Problems ProblemNoted DateDiagnosed DateEncounter for long-term current use of medication 4Diarrhea, ltaslnkjgkt37/24/2024 Assessment & Plan (12/10/2023 12:22 PM EDT): Continued diarrhea and unclear etiology. Prior cholecystectomy and possibly related. Try cholestyramine. Contact GI for colonoscopy. Gastroesophageal reflux disease without jkzyrbbkcwq81/24/2024 Assessment & Plan (12/10/2023 12:22 PM EDT): Symptoms controlled with nexium and continue. 2-vessel coronary artery fnukkgi3907/29/2023AA (abdominal aortic aneurysm) without vudawyw0907/29/2023Essential hypertension, chqcet9107/29/2023 Assessment & Plan (12/06/2024 7:55 AM EDT): BP controlled and monitor PRN. Assessment & Plan (04/11/2024 2:50 PM EDT): BP again low and stop hydrochlorothiazide. Increase water intake. Start norvasc. Assessment & Plan (03/14/2024 3:23 PM EDT): BP very low and likely causing symptoms. Stop hydrochlorothiazide. Monitor and if remains low decrease valsartan to once a day. Assessment & Plan (12/10/2023 12:22 PM EDT): BP controlled and monitor PRN. Lower extremity edema07/29/2023PH associated with alkioxcf30/11/2024 Cerebrovascular disease, qvqhtasfgjc93/11/2024DD (degenerative disc disease), tmysoqrk17/11/2024DD (degenerative disc disease), jsdirs2507/29/2023 Assessment & Plan (12/06/2024 7:55 AM EDT): Pain stable and use norco PRN. Assessment & Plan (03/14/2024 3:23 PM EDT): Pain stable and use norco PRN. Start PT. Assessment & Plan (12/10/2023 12:21 PM EDT): Pain stable and use norco PRN. Frequent spasms and stop robaxin, try zanaflex. Gmsvdziwomny78/11/2024Iron deficiency anemia secondary to inadequate dietary iron iqzcai1107/29/2023Major depressive disorder, recurrent episode, mild 07/29/2023 Assessment & Plan (12/06/2024 7:56 AM EDT): Symptoms controlled with paxil and continue. Assessment & Plan (03/14/2024 3:23 PM EDT): Symptoms controlled with paxil and continue. Assessment & Plan (12/10/2023 12:22 PM EDT): Symptoms controlled with paxil and continue. Stage 3a chronic kidney eerawno1307/29/2023Type 2 diabetes mellitus with hyperglycemia, without long-term current use of swpxlvt1307/29/2023 Assessment & Plan (12/06/2024 7:56 AM EDT): Not checking BS and due for A1C. Stick to ADA diet and limit carbs. Assessment & Plan (04/11/2024 2:50 PM EDT): BS controlled and A1C 6.0. Stick to ADA diet and limit carbs. Assessment & Plan (03/14/2024 3:23 PM EDT): Not checking BS and due for A1C. Need to check BS once a day. Stick to ADA diet and limit carbs. Assessment & Plan (02/09/2024 3:21 PM EDT): Not checking BS and due for A1C. Need to check BS once a day. Stick to ADA diet and limit carbs. Vxsjyyq4207/29/2023 Assessment & Plan (12/06/2024 7:56 AM EDT): Use meclizine PRN. If worsens will refer to vestibular rehab. Vitamin D odplcldkua19/11/2024onstipation due to opioid rkgnsaa1207/29/2023 Assessment & Plan (07/29/2023 11:26 AM EST): BM once a week and likely caused ileus. Add fiber supplement and use miralax PRN. PVD (peripheral vascular disease)04/20/2023 Resolved Problems ProblemNoted DateDiagnosed DateResolved DateDiarrhea due to drug09/01/2023 12/10/2023 Assessment & Plan (09/01/2023 11:03 AM EST): Frequent loose stools and unclear etiology. Possibly related to medication and stop metformin. Increase dietary fiber. Ileus/ Assessment & Plan (07/29/2023 11:27 AM EST): Recent ileus but resolved. Need high fiber diet. Encounters DateTypeDepartmentCare FtmuWqkopemrisi00/25/2025Telephone [facility] [address] [place] [address] Mk Nichole MD Error (VOID this visit)03/02/2025linisync Result Encounter [facility] External Department Unsolicited Provider, Generic External Data 02/28/2025Refill [facility] [address] [place] [address] Mk Nichole MD Degeneration of cervical intervertebral discfrom Last 3 Months Family History Medical HistoryRelationNameCommentsHeart diseaseFatherDiabetesMotherRelationName StatusCommentsFatherDeceasedMotherDeceased Social History Tobacco UseTypesPacks/DayYears UsedDateSmoking Tobacco: Every DayCigarettes Tobacco Cessation:Ready to Q uit: Not Asked; Counseling Given: Not Answered Sex and Gender InformationValueDate RecordedSex Assigned at BirthNot on file Legal GeiNquy0609/30/2022 6:49 PM EDTGender IdentityNot on fileSexual Orientation Not on file Last Filed Vital Signs Vital SignReadingTime TakenCommentsBlood Utljytto001/72012/06/2024 7:28 AM EDT Efkii738412/06/2024 7:28 AM MTBDrvgtkqsiem15.6 ??C (97.8 ??F)12/06/2024 7:28 AM EDTRespiratory Sftm266912/06/2024 7:28 AM EDTOxygen Lsfajtfkdv08%12/06/2024 7:28 AM EDTInhaled Oxygen Concentration--Wlowjl08.6 kg (182 lb)12/06/2024 7:28 AM EDT Ugqydc778.6 cm (5' 6 )12/06/2024 7:28 AM EDTBody Mass Index29.38012/06/2024 7:28 AM EDT Plan of Treatment Not on file Procedures Procedure NamePriorityDate/TimeAssociated DiagnosisCommentsXR ABDOMEN 1V 03/02/2025 12:01 PM EDT from Last 3 Months Results * XR ABDOMEN 1V (03/02/2025 12:01 PM EDT)Anatomical RegionLateralityModality OtherSpecimen (Source)Anatomical Location / LateralityCollection Method / VolumeCollection TimeReceived Time03/02/2025 12:01 PM EDT Narrative 03/02/2025 12:03 PM EDT [facility] ?[address] ? [place] [address] ?XRay Report ? Signed ? Patient: MARIA FERNANDA,GOPAL W ?MR#: [id number] ?? : 1950 ?Acct:[id number] ?? Age/Sex: 74 / M ?ADM Date: 03/02/25 ?? Loc: RAD ? Attending Dr: Reji Epps M.D. ? Ordering Physician: Reij Epps M.D. ?? Date of Service: 03/02/25 ?? Procedure(s): XR abdomen 1V ?? Accession Number(s): [id number] ? cc: Mk Nichole M.D.; Reji Epps M.D. ? [facility] ? [address] [facility] ? [place] [address] ? Patient Name: ?? GOPAL IRVING ? MRN: [id number] ? date: 1950 ?Sex: M ?? Assigned Patient Location: RAD ?? Current Patient Location: RAD ?? Accession/Order Number: [id number] ?? Exam Date: 03/02/2025 ??12:00 ?Report Date: 03/02/2025 ??12:01 ? At the request of: ?? REJI ??EPPS ??MD ? Procedure: ??XR abdomen 1V ? KUB: ? CLINICAL INFORMATION: Kidney stone. ? COMPARISON: CT abdomen and pelvis 07/27/2021 ? FINDINGS: Punctate bilateral nephrolithiasis. ??No bowel obstruction or free ?? air. ??Aortic graft is in place. ? XR/XR abdomen 1V ?? IMPRESSION: ? PUNCTATE BILATERAL NEPHROLITHIASIS. ? Impression dictated by: Ramses Farias Jr., D.O. ??03/02/2025 12:01 PM ? Dictation Location: RADIO-PC-22 ? Electronically authenticated by: [id number] ??Y ?? Date: 03/02/2025 ??12:01 ? Dictated By: ?Ramses Farias M.D. ? Signed By: ?03/02/25 1203 ? DD/ 1201 ? TD/TT: ? Plant Scientist: Procedure Note Radiology, Radiologist, - 03/02/2025 [place] [address] XRay Report Signed Patient: GOPAL IRVING WMR#: [id number] : 1950cct:[id number] Age/Sex: 74 / MADM Date: 03/02/25 Loc: RAD Attending Dr: Reji Epps M.D. Ordering Physician: Reji Epps M.D. Date of Service: 03/02/25 Procedure(s): XR abdomen 1V Accession Number(s): [id number] cc: Mk Nichole M.D.; Reji Epps M.D. The [place] [id number] Patient Name: GOPAL IRVING MRN: [id number] date: 1950 Sex: M Assigned Patient Location: [facility] Current Patient Location: RAD Accession/Order Number: [id number] Exam Date: 03/02/2025 12:00 Report Date: 03/02/2025 12:01 At the request of: REJI EPPS MD Procedure: XR abdomen 1V KUB: CLINICAL INFORMATION: Kidney stone. COMPARISON: CT abdomen and pelvis 07/27/2021 FINDINGS: Punctate bilateral nephrolithiasis. No bowel obstruction orfree air. Aortic graft is in place. XR/XR abdomen 1V IMPRESSION: PUNCTATE BILATERAL NEPHROLITHIASIS. Impression dictated by: Ramses Farias Jr. DClaudineOClaudine 03/02/2025 12:01 PM Dictation Location: [place] [address] Electronically authenticated by: [id number] Y Date: 2:01 Dictated By: Ramses Farias M.D. Signed By:03/02/25 1203 DD/ 120 TD/TT: Plant Scientist: Authorizing ProviderResult TypeResult StatusGeneric External Data Provider CLINIS[facility]NC IMAGINGFinal Result from Last 3 Months Insurance Care Teams Team MemberRelationshipSpecialtyStart DateEnd Date Mk Nichole MD [facility]
--- OUTSIDE RECORDS SUMMARY | 2025-05-21 16:22 | XMS_ITS | Clinical Summary ---
Author Organization [facility] Address [address] [place] [address], [address] [place] [address] Care Team Providers Care Learning Coach Name Role Phone Unavailable Primary Care Provider Unavailabl e Social History Tobacco UseTypesPacks/DayYears UsedDateSmoking Tobacco: Never AssessedSex and Gender InformationValueDate RecordedSex Assigned at BirthNot on fileLegal Sex Male08/31/2012 12:38 AM ESTGender IdentityNot on fileSexual OrientationNot on file Plan of Treatment Not on file
--- OUTSIDE RECORDS SUMMARY | 2025-05-21 16:22 | XMS_ITS | Clinical Summary ---
Author Organization [facility] Address [address] [place] [address] Phone Care Team Providers Care School Program Director Name Role Phone Mk Nichole MD Primary Care Provider + Lesia Rhodes MD Unavailable Allergies Active AllergyReactionsCriticalityNoted DateCommentsCodeinePalpitationsLow 04/20/20238397EuppibglvEugtxdjjIps88/23/5780KnjknqfumtTmvyaAlux67/23/2024 Suicidal ideation Medications MedicationSigDispense QuantityRefillsLast FilledStart DateEnd DateStatus cholecalciferol (Vitamin D-3) 50 MCG (1999) tablet Take 2 tablets (100 mcg) by mouth once daily.05/25/2022ctive esomeprazole (NexIUM) [address] capsule Take 1 capsule (40 mg) by mouth 2 times a day.09/25/2022ctive FeroSuL 325 mg (65 mg iron) tablet Take 1 tablet by mouth once daily.10/23/2022ctive HYDROcodone-acetaminophen ([place]) 5-325 mg tablet Take 1 tablet by mouth every 4 hours if needed for moderate pain (4 - 6) or severe pain (7 - 10). TAKE 1 TABLET EVERY 4 TO 6 HOURS NEEDED FOR PAIN.Active PARoxetine (Paxil) 20 mg tablet Take 1 tablet (20 mg) by mouth once daily.Active polyethylene glycol (Glycolax, Miralax) 17 gram/dose powder Mix 17 g of powder and drink once daily as needed.10/12/2022ctive tolterodine LA (Detrol LA) 2 mg 24 hr capsule Take 1 capsule (2 mg) by mouth once a day on Wednesday, Wednesday, and Wednesday. Do not crush, chew, or split.Active rosuvastatin (Crestor) 20 mg tablet Indications:Two-vessel coronary artery disease,Mixed hyperlipidemiaTake 1 tablet (20 mg) by mouth once daily. 90 tablet ctive metFORMIN (Glucophage) 500 mg tablet Take 1 tablet (500 mg) by mouth 2 times daily (morning and late afternoon). Active amLODIPine (Norvasc) 5 mg tablet Take 1 tablet (5 mg) by mouth once daily.Active valsartan (Diovan) 160 mg tablet Indications:Essential hypertensionTake 1 tablet (160 mg) by mouth 2 times a day. 180 tablet 3:44 PM EDT5Active metoprolol succinate XL (Toprol-XL) 25 mg 24 hr tablet Indications:Essential hypertensionTake 1 tablet (25 mg) by mouth once daily. Do not crush or chew. 90 tablet 3:44 PM EDTctive clopidogrel (Plavix) 75 mg tablet Indications:Status post non-ST elevation myocardial infarction (NSTEMI)Take 1 tablet (75 mg) by mouth once daily. 90 tablet 3:44 PM EDT5Active potassium chloride ER (Micro-K) 10 mEq ER capsule Indications:Two-vessel coronary artery diseaseTake 1 capsule (10 mEq) by mouth once daily. 90 capsule 3:44 PM EDT5Active nitroglycerin (Nitrostat) 0.4 mg SL tablet Indications:Two-vessel coronary artery disease,Abdominal aortic aneurysm (AAA), unspecified part, unspecified whether ruptured,Status post non-ST elevation myocardial infarction (NSTEMI)Place 1 tablet (0.4 mg) under the tongue every 5 minutes if needed for chest pain. May repeat dose every 5 minutes for up to 3 doses total. 25 tablet 6:10 PM EDT151ctive methocarbamol (Robaxin) 750 mg tablet Take 1 tablet (750 mg) by mouth 3 times a day.05/16/2025Discontinued(Therapy completed) Active Problems ProblemNoted DateDiagnosed ZczzWlsfgwbdsa14/23/2024BMI 28.0-28.9,adult2023 Assessment & Plan (11/14/2024 1:31 PM EDT): Reviewed the merits of healthy lifestyle choices on overall cardiovascular health. AAA (abdominal aortic aneurysm)04/20/2023 Assessment & Plan (11/14/2024 1:28 PM EDT): Routinely with vascular August 2024 ultrasound stable infrarenal aneurysm, EVAR no leak Current xynnby0004/20/2023 Assessment & Plan (11/14/2024 10:35 AM EDT): 1 pack per day In past: quit for 5 years 'cold turkey' Continued every day tobacco use. Have reviewed the negative cardiovascular impact of nicotine. Continues to decline pharmacological assistance. Type 2 diabetes mellitus without complication, without long-term current use of qzautxs3904/20/2023iminished pulses in lower cwpywdqfu13/03/5130Zrxsatx14/03/2023 Essential rfulwemuihjs25/03/2023 Assessment & Plan (11/14/2024 1:28 PM EDT): Optimal in office Gplgwro3804/20/20234588Xpyeikquecsspz16/03/2023 Assessment & Plan (11/14/2024 1:28 PM EDT): High intensity statin We will check annual labs Old posterior myocardial uqjdyciyiw78/03/2023Status post non-ST elevation myocardial infarction (NSTEMI)04/20/2023Two-vessel coronary artery disease 04/20/2023 Assessment & Plan [...] less than 4 METS without concerning symptoms Fmpuqmdeluclfijqflr22/03/2023VD (peripheral vascular disease)04/20/2023 Resolved Problems ProblemNoted DateDiagnosed DateResolved DateChronic obstructive pulmonary glmveim33/2025Ukyjazquyz89/03/202304/ Encounters DateTypeDepartmentCare KalkSbocalgfatw27/29/2025 10:40 AM EDTOffice Visit [address] [phone] Bonifacio Stern, Two-vessel coronary artery disease; Abdominal aortic aneurysm (AAA), unspecified part, unspecified whether ruptured; Essential hypertension; Mixed hyperlipidemia; Status post non-ST elevation myocardial infarction (NSTEMI); Type 2 diabetes mellitus without complication, without long-term current use of insulin (Multi); BMI 28.0-28.9,adult; Current smoker Discharge Disposition: Home05/16/20258514Jqkobq98/25/2025Refill [address] [phone] Aidee Salguero LPN Status post non-ST elevation myocardial infarction (NSTEMI); Two-vessel coronary artery diseasefrom Last 3 Months Immunizations ImmunizationAdministration DatesNext DueFlu vaccine, quadrivalent, recombinant, preservative free, adult (FLUBLOK)07/02/2022Influenza, Qpvhksydcjt29/01/2018, 04/18/2016,05/19/2015,05/19/2014,07/19/2012,07/19/2010Influenza, injectable, hrmizkechwuk51/10/2014Pfizer COVID-19 vaccine, bivalent, age 12 years and older (30 mcg/0.3 mL)07/03/2022neumococcal polysaccharide vaccine, 23-valent, age 2 years and older (PNEUMOVAX 23)02/17/2016,07/19/2006 Family History Medical HistoryRelationNameCommentsHeart diseaseBrothercoronary artery bypass graftBrotheracute myocardialFatherDiabetes type IIMotherRelationNameStatus CommentsBrotherFatherMother Social History Tobacco UseTypesPacks/DayYears UsedDateSmoking Tobacco: Every DayCigarettes Smokeless Tobacco: Never Tobacco Cessation:Ready to Q uit: No; Counseling Given: Yes Alcohol UseStandard Drinks/WeekCommentsNever0 (1 standard drink = 0.6 oz pure alcohol)PHQ-2AnswerDate RecordedPatient Health Questionnaire-2 Obpys746 Sex and Gender InformationValueDate RecordedSex Assigned at BirthNot on file Legal WprUylx49/26/2022 6:45 PM ESTGender IdentityNot on fileSexual Orientation Not on file Last Filed Vital Signs Vital SignReadingTime TakenCommentsBlood Zyhorupk244/8405/16/2025 10:59 AM EDT Angia374605/16/2025 10:59 AM KAVOxgprdyduui16.1 ??C (96.9 ??F)11/19/2022 1:07 PM EDTRespiratory Buxe080210/13/2022 1:11 PM EDTOxygen Mauszajmaz43%10/13/2022 1:11 PM EDTInhaled Oxygen Concentration--Zwruiz69.9 kg (174 lb)05/16/2025 10:59 AM PKRZnvawv945.6 cm (5' 6 )05/16/2025 10:59 AM EDTBody Mass Index28.0805/16/2025 10:59 AM EDT Plan of Treatment DateTypeDepartmentCare Team (Latest Contact Info)Jofwoqvdeuf27/27/2026 11:30 AM EDTOffice Visit [facility] [address] [facility] [address] [place] [address] Cristina Calles, THEATRICAL VARIETY AGENT-CRM ARCHITECT [address] [facility] [address] [place] [address] Health MaintenanceDue DateLast DoneCommentsCT Kpdcsaqylojo60/24/1951iabetes: Hemoglobin A1C1950iabetes: Urine Protein Awbaffsyk15/24/1951FIT-DNA (Cologuard)1950FIT1950ipid Panel1950Medicare Annual Wellness Visit (AWV)11/09/19506997Mwvtwqpumkzmk02/24/1951MMR Vaccines (1 of 1 - Standard series)2Diabetes: Retinopathy Wlierpbgn12/24/1961Hepatitis C Screening 1968DTaP/Tdap/Td Vaccines (1 - Tdap)1972RSV High Risk: (Elderly (60+) or Population) (1 - Risk 50-74 years 1-dose series)2000 Zoster Vaccines (1 of 2)2000Abdominal Aortic Aneurysm (AAA) Screening 11/10/2015Pneumococcal Vaccine (2 of 2 - PCV), 07/19/2006 Influenza Vaccine (#1)/, 05/19/2018, 04/18/2016, Additional history existsCOVID-19 Vaccine (2 - season)/ Chcdlayiufi30/03/219487/4Colorectal Cancer Dfapakmwc76/03/2034Irritable Bowel YcrybkpkGcazkzcanigd67/01/2023, 10/05/2022HIB VaccinesAged OutNo longer eligible based on patient's age to complete this topicHPV VaccinesAged OutNo longer eligible based on patient's age to complete this topicHepatitis A VaccinesAged OutNo longer eligible based on patient's age to complete this topic Hepatitis B VaccinesAged OutNo longer eligible based on patient's age to complete this topicIPV VaccinesAged OutNo longer eligible based on patient's age to complete this topicMeningococcal VaccineAged OutNo longer eligible based on patient's age to complete this topicRotavirus VaccinesAged OutNo longer eligible based on patient's age to complete this topic Procedures Procedure NamePriorityDate/TimeAssociated OigszjrlmIrizuvvxYOMNTbcespt81/01/2023 9:41 AM EDT from Last 3 Months or Most Recently Relevant to Health Maintenance Results * Endoscopic Retrograde Cholangiopancreatography (ERCP) (12/17/2022 9:41 AM EDT) Anatomical RegionLateralityModalityEndoscopySpecimen (Source)Anatomical Location / LateralityCollection Method / VolumeCollection TimeReceived Time 12/17/2022 9:41 AM EDT Narrative 12/17/2022 10:03 AM EDT Patient Name: Gopal Irving Procedure Date: 12/17/2022 9:41 AM Date of : 1950 Admit Type: Outpatient Site: [facility] 1 Ethnicity: Not or Race: White Attending MD: Alyssia Acuna MD, [id number] Procedure: ? ERCP Indications: ? Follow-up of bile duct stone(s), Follow-up of ? ascending cholangitis, Biliary stent removal Patient Profile: ? This is a 72 year old male. Refer to note in patient ? chart for documentation of history and physical. Providers: ? Alyssia Acuna MD (Doctor), Jeevan Mcgovern RN ? (Nurse), Balbina Schuler, Ward Supervisor Referring: ? Medicines: ? General Anesthesia Complications: ? No immediate complications. Procedure: ? Pre-Anesthesia Assessment: ? - Prior to the procedure, a History and Physical was ? performed, and patient medications and allergies were ? reviewed. The patient is competent. The risks and ? benefits of the procedure and the sedation options and ? risks were discussed with the patient. All questions ? were answered and informed consent was obtained. ? Patient identification and proposed procedure were ? verified by the physician, the nurse, the ? anesthesiologist, the structural mill supervisor and the plant technician ? in the procedure room. Mental Status Examination: ? alert and oriented. Airway Examination: normal ? oropharyngeal airway and neck mobility. Respiratory ? Examination: clear to auscultation. CV Examination: ? normal. Prophylactic Antibiotics: The patient does not ? require prophylactic antibiotics. Prior ? Anticoagulants: The patient has taken no anticoagulant ? or antiplatelet agents except for aspirin. ASA Grade ? Assessment: III - A patient with severe systemic ? disease. After reviewing the risks and benefits, the ? patient was deemed in satisfactory condition to ? undergo the procedure. The anesthesia plan was to use ? general anesthesia. Immediately prior to ? administration of medications, the patient was ? re-assessed for adequacy to receive sedatives. The ? heart rate, respiratory rate, oxygen saturations, ? blood pressure, adequacy of pulmonary ventilation, and ? response to care were monitored throughout the ? procedure. The physical status of the patient was ? re-assessed after the procedure. ? After obtaining informed consent, the scope was passed ? under direct vision. Throughout the procedure, the ? patient's blood pressure, pulse, and oxygen ? saturations were monitored continuously. The ? duodenoscope was introduced through the mouth, and ? advanced to the duodenum and used to inject contrast ? into the bile duct. The ERCP was accomplished without ? difficulty. The patient tolerated the procedure well. Findings: ? A commercial hvac service technician film of the abdomen was obtained. Surgical clips, consistent ? with a previous cholecystectomy, were seen in the area of the right ? upper quadrant of the abdomen. A biliary stent was visible on the commercial hvac service technician ? film. The esophagus was successfully intubated under direct vision. The ? scope was advanced from the mouth to the duodenum. The pharynx, larynx ? and associated structures, as well as the upper GI tract, were normal. ? One plastic biliary stent originating in the biliary tree was emerging ? from the major papilla. The stent was partially occluded. A biliary ? sphincterotomy had been performed. The sphincterotomy appeared open. One ? stent was removed from the biliary tree using a snare. A 0.025 inch x ? 270 cm angled Visiglide wire was passed into the biliary tree. The 11.5 ? mm balloon was passed over the guidewire and the bile duct was then ? deeply cannulated. Contrast was injected. I personally interpreted the ? bile duct images. Ductal flow of contrast was adequate. Image quality ? was adequate. Contrast extended to the entire biliary tree. Neither ? stones nor ductal dilatation were present in the main bile duct. The ? biliary tree was swept with an 11.5 mm balloon starting at the right ? intrahepatic duct(s). Sludge was swept from the duct. Final balloon ? sweeps were negative. Estimated Blood Loss: ? Estimated blood loss: none. Impression: ?- One partially occluded stent from the biliary tree ? was seen in the major papilla. Removed. ? - Prior biliary sphincterotomy appeared open. ? - The biliary tree was swept and sludge was found. Recommendation: ?- Patient has a contact number available for ? emergencies. The signs and symptoms of potential ? delayed complications were discussed with the patient. ? Return to normal activities tomorrow. Written ? discharge instructions were provided to the patient. ? - Written discharge instructions were provided to the ? patient. ? - Resume previous diet. ? - Continue present medications. Procedure Code(s): ? --- Professional --- ? 47510, Endoscopic retrograde cholangiopancreatography ? (ERCP); with removal of foreign body(s) or stent(s) ? from biliary/pancreatic duct(s) ? 38737, Endoscopic retrograde cholangiopancreatography ? (ERCP); with removal of calculi/debris from ? biliary/pancreatic duct(s) ? 56368, Endoscopic catheterization of the biliary ? ductal system, radiological supervision and ? interpretation Diagnosis Code(s): ? --- Professional --- ? T85.590A, Other mechanical complication of bile duct ? prosthesis, initial encounter ? K80.30, Calculus of bile duct with cholangitis, ? unspecified, without obstruction ? Z46.59, Encounter for fitting and adjustment of other ? gastrointestinal appliance and device ? K83.09, Other cholangitis CPT copyright 2021 [employer]. All rights reserved. The codes documented in this report are preliminary and upon daytime babysitter review may be revised to meet current compliance requirements. Attending Participation: ? I personally performed the entire procedure. MD Alyssia Tapia MD 12/17/2022 10:02:50 AM This report has been signed electronically. Number of Addenda: 0 Note Initiated On: 12/17/2022 9:41 AM Total Procedure Duration Time 0 hours 9 minutes 21 seconds Procedure Note Alyssia Acuna MD - 06/13/2024 Patient Name: Gopal Irving Procedure Date: 12/17/2022 9:41 AM Date of : 1950 Admit Type: Outpatient Site: [facility] Ethnicity: Not or Race: White Attending MD: Alyssia Acuna MD, [id number] Procedure: ERCP Indications: Follow-up of bile duct stone(s), Follow-up of ascending cholangitis, Biliary stent removal Patient Profile: This is a 72 year old male. Refer to note inpatient chart for documentation of history and physical. Providers: Alyssia Acuna MD (Doctor), Jeevan Mcgovern RN (Nurse), Balbina Schuler, Ward Supervisor Referring: Medicines: General Anesthesia Complications: No immediate [...] the physician, the nurse, the anesthesiologist, the structural mill supervisor and thetechnician in the procedure room. Mental [...] The patient tolerated the procedurewell. Findings: A commercial hvac service technician film of the abdomen was obtained. Surgical [...] present medications. Procedure Code(s): --- Professional --- 84590, Endoscopic retrogradecholangiopancreatography (ERCP); with removal of foreign body(s) or stent(s) from biliary/pancreatic duct(s) 87771, Endoscopic retrogradecholangiopancreatography (ERCP); with removal of calculi/debris from biliary/pancreatic duct(s) 22811, Endoscopic catheterization of the biliary ductal system, radiological supervision and interpretation Diagnosis Code(s): --- Professional --- T85.590A, Other mechanical complication of bileduct prosthesis, initial encounter K80.30, Calculus of bile duct with cholangitis, unspecified, without obstruction Z46.59, Encounter for fitting and adjustment ofother gastrointestinal appliance and device K83.09, Other cholangitis CPT copyright 2021 [employer]. All rights reserved. The codes documented in this report are preliminary and upon daytime babysitter reviewmay be revised to meet current compliance requirements. Attending Participation: I personally performed the entire procedure. MD Alyssia Tapia MD 12/17/2022 10:02:50 AM This report has been signed electronically. Number of Addenda: 0 Note Initiated On: 12/17/2022 9:41 AM Total Procedure Duration Time 0 hours 9 minutes 21 seconds Authorizing ProviderResult TypeResult StatusProvation ConversionENDOSCOPY PROCEDURE ORDERABLESEdited Result - Final from Last 3 Months or Most Recently Relevant to Health Maintenance Insurance Care Teams Team MemberRelationshipSpecialtyStart DateEnd Date Mk Nichole MD [address] [place] [address] PCP - GeneralFamily Medicine11/09/23 Lesia Rhodes MD [address] [address] YwlnzslSccercrydmzeedvn41/1/24
--- OUTSIDE RECORDS SUMMARY | 2025-05-21 16:22 | XMS_ITS | Encounter Summary ---
Author Organization [facility] Address [address] [place] [address] Phone Care Team Providers Care Product Safety Technical Assistant Name Role Phone Mk Nichole MD Primary Care Provider + Lesia Rhodes MD Unavailable Encounter Details DateTypeDepartmentCare Team (Latest Contact Info)Ktmjponljtk06/29/2025Travel Social History Tobacco UseTypesPacks/DayYears UsedDateSmoking Tobacco: Every DayCigarettes Smokeless Tobacco: NeverAlcohol UseStandard Drinks/WeekCommentsNever0 (1 standard drink = 0.6 oz pure alcohol)PHQ-2AnswerDate RecordedPatient Health Questionnaire-2 Bpjkv479Sex and Gender InformationValueDate RecordedSex Assigned at BirthNot on fileLegal UqjCidf34/26/2022 6:45 PM ESTGender Identity Not on fileSexual OrientationNot on filedocumented as of this encounter Functional Status * BPAnswerDate of DbbgutdrzePbxjds837/8405/16/2025 10:59 AM Inga Roberts LPN * PulseAnswerDate of XdxncytjuyKfdjqk5928/29/2025 10:59 AM Inga Roberts LPN * Communicable Disease ScreeningQuestionAnswerDate of AssessmentAuthorDo you have any of the following new or worsening symptoms?None of these05/16/2025 10:23 AM Marion Weston documented as of this encounter Plan of Treatment DateTypeDepartmentCare Team (Latest Contact Info)Qlbdgabwehd39/27/2026 11:30 AM EDTOffice Visit [facility] [address] [facility] [address] [place] [phone] Cristina Calles, RIB STIFFENER AND HEEL DIPPER-PANEL LAMINATOR [address] [facility] [address] [place] [address] documented as of this encounter Visit Diagnoses Not on filedocumented in this encounter Additional Health Concerns AssessmentNoted TimePHQ-9 Depression Total Score: 11007/23/2022 12:18 PM ESTA fall risk assessment has been completed for the nonowwc8705/16/2025 10:57 AM EDT documented as of this encounter Care Teams Team MemberRelationshipSpecialtyStart DateEnd Date Mk Nichole MD [address] [place] [address] PCP - GeneralFamily Medicine11/09/23 Lesia Rhodes MD [address] [facility] [address] [place] [address] GompcimRcahcxjwnskyljvu88/1/24documented as of this encounter
--- OUTSIDE RECORDS SUMMARY | 2025-05-21 16:22 | XMS_ITS | Clinical Summary ---
Author Organization [facility] Address [address] [place], [place] [id number] Care Team Providers Care Explosive Ordnance Disposal Specialist Name Role Phone Mk Nichole MD Primary Care Provider [phone] Social History Tobacco UseTypesPacks/DayYears UsedDateSmoking Tobacco: Never AssessedSex and Gender InformationValueDate RecordedSex Assigned at BirthNot on fileLegal Sex Male02/01/2024 9:29 AM EDTGender IdentityNot on fileSexual OrientationNot on file Plan of Treatment Not on file Care Teams Team MemberRelationshipSpecialtyStart DateEnd Date Mk Nichole MD [address] [place] [address] PCP - GeneralFamily Medicine02/01/24
--- OUTSIDE RECORDS SUMMARY | 2025-05-21 16:22 | XMS_ITS | Encounter Summary ---
Author Organization [facility] Address [address] [place] [address] Care Team Providers Care Chief Design Engineer Name Role Phone Mk Nichole MD Primary Care Provider [phone] Encounter Details DateTypeDepartmentCare Team (Latest Contact Info)Gtgfginllqc64/08/2024Clinisync Result Encounter [facility] External Department Unsolicited Provider, Generic External Data Social History Tobacco UseTypesPacks/DayYears UsedDateSmoking Tobacco: Every DayCigarettesSex and Gender InformationValueDate RecordedSex Assigned at BirthNot on fileLegal YgaXgox3109/30/2022 6:49 PM EDTGender IdentityNot on fileSexual OrientationNot on filedocumented as of this encounter Plan of Treatment Not on file documented as of this encounter Procedures Procedure NamePriorityDate/TimeAssociated DiagnosisCommentsUS RIGHT UPPER MUPLTEYH14/08/2024 3:17 PM EST documented in this encounter Results * US RIGHT UPPER QUADRANT (05/26/2024 3:17 PM EST)Anatomical RegionLaterality ModalityOtherSpecimen (Source)Anatomical Location / LateralityCollection Method / VolumeCollection TimeReceived Time05/26/2024 3:17 PM EST Narrative 05/27/2024 11:39 AM EST Ok's to do RUQ per Najma Jordan with Dr. Grimes's office Interpreted By: ??Daniella Kelly, STUDY: US RIGHT UPPER QUADRANT; ??05/26/2024 4:07 pm ?? INDICATION: Signs/Symptoms:rule out cbd stone. ?? ,K80.50 Calculus of bile duct without cholangitis or cholecystitis without obstruction,R14.2 Eructation,R10.9 Unspecified abdominal pain ?? COMPARISON: None. ?? ACCESSION NUMBER(S): [id number] ?? ORDERING CLINICIAN: SOL GRIMES ?? TECHNIQUE: Multiple images of the right upper quadrant were obtained. ?? FINDINGS: LIVER: The liver measures 11.7 cm in longest axis. No definite nodules. ? GALLBLADDER: The gallbladder is surgically absent.. ? BILE DUCTS: No evidence of intra or extrahepatic biliary dilatation is identified; the common bile duct measures .4. ?? PANCREAS: Suboptimally visualized and mostly obscured and not evaluated. ?? RIGHT KIDNEY: The right kidney measures 10.3 cm in length. The renal cortical echogenicity and thickness are within normal limit. ??No hydronephrosis or renal calculi are seen. Inferior pole right renal cyst measuring approximately 38 x 34 x 35 mm. ?? IMPRESSION: Status post cholecystectomy. ?? Suboptimal visualization of the pancreas. ?? Right renal cyst. ?? MACRO: None ?? Signed by: Daniella Kelly 05/27/2024 11:39 AM Dictation workstation: ?? [id number] Procedure Note Radiology, Radiologist, - 05/27/2024 Ok's to do RUQ per Najma Jordan with Dr. Grimes's office Interpreted By: Daniella Kelly, STUDY: US RIGHT UPPER QUADRANT; 05/26/2024 4:07 pm INDICATION: Signs/Symptoms:rule out cbd stone. ,K80.50 Calculus of bile duct without cholangitis or cholecystitis without obstruction,R14.2 Eructation,R10.9 Unspecified abdominal pain COMPARISON: None. ACCESSION NUMBER(S): [id number] ORDERING CLINICIAN: SOL GRIMES TECHNIQUE: Multiple images [...] Daniella Kelly 05/27/2024 11:39 AM Dictation workstation: [id number] Authorizing ProviderResult TypeResult StatusGeneric External Data Provider [facility]IS[facility]NC IMAGINGFinal Result documented in this encounter Visit Diagnoses Not on filedocumented in this encounter Care Teams Team MemberRelationshipSpecialtyStart DateEnd Date Mk Nichole MD PCP - GeneralFamily Medicine09/01/23documented as of this encounter
--- NOTE | 2025-05-21 16:43 | ECG_ITS ---
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 Measurements Intervals Eldred Rate: 67 P: -51 MI: 120 QRS: -3 QRSD: 78 T: 22 QT: 410 QTc: 426 Interpretive Statements Extopic atrial rhythm 1470 with occasional supraventricular premature complexes 3233 Anteroseptal myocardial infarction, probably old [address] depression, probably normal 8102 Low QRS voltage in chest leads 9150 abnormal ECG Compared to ECG 10/28/2022 11:50:32 ST (T wave) deviation now present Low QRS voltage now present Sinus bradycardia no longer present Ventricular premature complex(es) no longer present Myocardial infarct finding still present Electronically Signed On 05-21-2025 18:49:40 EST by SAVANNAH PEARSON M.D.
[2025-05-21 16:48] LABS: Hematocrit 41.7 % (42.0-54.0); Hemoglobin 13.4 g/dL (14.0-18.0); Immature Granulocytes Abs Auto 0.06 10^3/uL (0.00-0.03); Immature Granulocytes Pct Auto 0.5 % (0.0-0.5); Lymphocytes Absolute Auto 3.9 10^3/uL (1.2-3.8); Mean Corpuscular HGB Conc 32.1 g/dL (29.9-35.2); Mean Corpuscular Hemoglobin 29.1 pg (25.9-34.0); Mean Corpuscular Volume 90.5 fL (80.0-94.0); Platelet Count 157 10^3/uL (150-450); Red Blood Count 4.61 10^6/uL (4.70-6.10); White Blood Count 12.4 10^3/uL (4.0-11.0)
--- NOTE | 2025-05-21 17:05 | CT_ITS ---
The [address] [address] Patient Name: MELINDA MUNOZ MRN: [id number] date: 1950 Sex: M Assigned Patient Location: ER Current Patient Location: ER Accession/Order Number: [id number] Exam Date: 05/21/2025 16:54 Report Date: 05/21/2025 17:18 At the request of: JAVIER MUKHERJEE MD Procedure: CT abdomen pelvis wo con CT Abdomen and Pelvis withoutcontrast TECHNIQUE: Axial imaging with 2-D reconstruction. The CT exam was performed using one or more the following dose reduction techniques: Automated exposure control, adjustment of the MA and/or Kv according to patient size, or use of the iterative reconstruction technique. COMPARISON: Plain film imaging 03/02/2025 History: Right upper quadrant pain with nausea. 12 hours duration. Last bowel movement 3 days ago. Assessment for small bowel obstruction. LIMITATIONS: None LOWER THORAX mild atelectasis. Coronary artery calcification. Stenting. LIVER: Unremarkable GALLBLADDER: Cholecystectomy clips identified. BILE DUCTS: No dilatation SPLEEN: Unremarkable PANCREAS: Unremarkable ADRENAL GLANDS: Unremarkable KIDNEYS:Bilateral hypodense and hyperdense cyst. Intrarenal atherosclerosis/small renal calculi. No hydronephrosis. AORTA: The aortobiiliac stenting. Maximal measurement of elim ira aneurysm up to 4.0 cm. No periaortic abnormality to suggest leak. RETROPERITONEUM: No significant retroperitoneal abnormalities identified. MESENTERY:Unremarkable STOMACH:Unremarkable SMALL BOWEL: The small bowel loops are nondistended. APPENDIX: The appendix is normal. COLON: Moderate burden of stool throughout the colon. URINARY BLADDER: Urinary bladder is unremarkable. REPRODUCTIVE SYSTEM: Reproductive structures are unremarkable. PNEUMOPERITONEUM: None PERITONEAL FLUID:None BONY STRUCTURES: Unremarkable ABDOMINAL WALL: Unremarkable CT/CT abdomen pelvis wo con IMPRESSION: No focal inflammatory changes. No bowel obstruction. Constipation. Mild bilateral hypodense and hyperdense renal cysts. Unremarkable aortobiiliac stenting. Impression dictated by: Tani Torres M.D. 05/21/2025 5:18 PM Dictation Location: [place] [address] Electronically authenticated by: [id number] Y Date: 05/21/2025 17:18
[2025-05-21 17:09] LABS: Alanine Aminotransferase 35 U/L (16-63); Albumin Globulin Ratio 0.8; Albumin Level 3.2 g/dL (3.4-5.0); Alkaline Phosphatase 103 U/L (46-116); Anion Gap 17.2; Aspartate Amino Transferase 25 U/L (15-37); Blood Urea Nitrogen 18.0 mg/dL (7.0-18.0); Calcium 8.8 mg/dL (8.5-10.1); Carbon Dioxide 22.3 mmol/L (21.0-32.0); Chloride 108 mmol/L (98-107); Estimated GFR (African America 43 (>=60 mL/min/1.73m^2); Estimated GFR (Non-African Ame 35 (>=60 mL/min/1.73m^2); Globulin 3.8 g/dL; Glucose 125 mg/dL (74-106); Lipase 22.0 U/L (16.0-77.0); Potassium 3.5 mmol/L (3.5-5.1); Sodium 144 mmol/L (136-145); Total Protein 7.0 g/dL (6.4-8.2)
--- NOTE | 2025-05-21 17:11 | PC.NURSE ---
mouth swabs given at this time for dry mouth
--- NOTE | 2025-05-21 17:20 | ED.ABDPAIN1 ---
HPI - Abdominal Pain General Chief Complaint: Abdominal Pain Stated Complaint: Abdominal Pain Time Seen by Provider: 05/21/25 16:42 Source: patient and family Mode of arrival: walk-in Limitations: no limitations History of Present Illness HPI narrative: The patient is a 74-year-old male presenting to us with his daughter at the bedside for complaint of right upper quadrant pain that resolved but it did happen today at 4 AM and he is presenting to us almost 12 hours later, he mentioned that he had some right upper quadrant pain that was temporary only at 4 AM but since then he did not have any pain and he is denying any pain at the moment, patient had a history of cholecystectomy and he denies any dizziness nausea vomiting or any other concerns. He admits that he does not drink water daily enough And he denies any fever chills coughing or difficulty breathing Patient had constipation for the last 3 days at this is when the last time he had a bowel movement. The patient denies any abdominal pain at the moment that need any treatment Related Data Home Medications ?Medication ?Instructions ?Recorded ?Confirmed amlodipine 5 mg tablet 5 mg PO DAILY 05/21/25 05/21/25 cholecalciferol (vitamin D3) 50 100 mcg PO DAILY 05/21/25 05/21/25 mcg (2,000 unit) capsule clopidogrel 75 mg tablet 75 mg PO DAILY 05/21/25 05/21/25 esomeprazole magnesium 40 mg 40 mg PO Q12H 05/21/25 05/21/25 capsule,delayed release ferrous sulfate 325 mg (65 mg 325 mg PO DAILY 05/21/25 05/21/25 iron) tablet (FeroSul) hydrocodone 5 mg-acetaminophen 325 1 tab PO Q6H PRN pain 05/21/25 05/21/25 mg tablet metformin 500 mg tablet,extended 500 mg PO BID 05/21/25 05/21/25 release 24 hr metoprolol succinate 25 mg 25 mg PO DAILY 05/21/25 05/21/25 tablet,extended release 24 hr paroxetine HCl 20 mg tablet 20 mg PO DAILY 05/21/25 05/21/25 polyethylene glycol 3350 17 17 g PO DAILY 05/21/25 05/21/25 gram/dose oral powder (ClearLax) potassium chloride 10 mEq 10 meq PO DAILY 05/21/25 05/21/25 capsule,extended release rosuvastatin 20 mg tablet 20 mg PO DAILY 05/21/25 05/21/25 tolterodine 2 mg capsule,extended 2 mg PO .three times per week 05/21/25 05/21/25 release 24 hr valsartan 160 mg tablet 160 mg PO BID 05/21/25 05/21/25 Previous Rx's ?Medication ?Instructions ?Recorded polyethylene glycol 3350 17 17 g PO DAILY PRN constipation 05/21/25 gram/dose oral powder (Miralax) #119 grams Allergies Allergy/AdvReac Type Severity Reaction Status Date / Time No Known Drug Allergies Allergy Verified 05/21/25 16:22 Review of Systems ROS Status of ROS 10 or more systems reviewed and unremarkable except as noted in history and below PFSH PFSH Social History Little interest or pleasure in doing things: not at all Feeling down, depressed, or hopeless: not at all Exam Narrative Exam Narrative: Nurses notes and vital signs reviewed and patient is not hypoxic. General: Well-appearing and in no apparent distress. Skin: Warm, dry, no pallor noted. No rash. Head: Normocephalic, atraumatic. Neck: Supple, non-tender. Cardiovascular: Regular Rate and Rhythm without murmur, gallop or rub. Respiratory: No accessory muscle use or respiratory distress. Lungs are clear to auscultation, no wheezing, rales or rhonchi Chest Wall: no tenderness Back: No midline thoracic or lumbar vertebral tenderness. No CVA tenderness Musculoskeletal: normal ROM, no calf or popliteal tenderness, no lower extremity edema/swelling GI: Abdomen is soft, non-distended. Normal bowel sounds. No masses appreciated. No tenderness to palpation. No rebound, guarding, or rigidity noted. Neurological: A&O x4. No cranial nerve dysfunction observed. No truncal ataxia. Moves all extremities. Sensation intact. Psychiatric: Cooperative and interactive. Normal mood and affect. Constitutional Vital Signs, click to edit/add: Last Vital Signs Temp 98 F 05/21/25 16:19 Pulse 72 05/21/25 16:19 Resp 16 05/21/25 16:19 BP 133/99 H 05/21/25 16:19 Pulse Ox 100 05/21/25 16:19 O2 Del Method Room Air 05/21/25 16:19 Course Vital Signs Vital signs: Vital Signs Temperature 98 F 05/21/25 16:19 Pulse Rate 72 05/21/25 16:19 Respiratory Rate 16 05/21/25 16:19 Blood Pressure 133/99 H 05/21/25 16:19 Pulse Oximetry 100 05/21/25 16:19 Oxygen Delivery Method Room Air 05/21/25 16:19 Temperature 98 F 05/21/25 16:19 Pulse Rate 72 05/21/25 16:19 Respiratory Rate 16 05/21/25 16:19 Blood Pressure 133/99 H 05/21/25 16:19 Pulse Oximetry 100 05/21/25 16:19 Oxygen Delivery Method Room Air 05/21/25 16:19 MDM - Abdominal Pain MDM Narrative Medical decision making narrative: The patient is a high risk patient who have history of abdominal aortic aneurysm that was repaired in addition to other comorbidities His abdominal examination was benign and he did had right upper quadrant pain that resolved with constipation The CBC here and the chemistry showed that the patient have some increase in his creatinine which mostly secondary to dehydration and that why he was provided some IV fluid here in the ER with instruction to the daughter as well as the patient that his blood workup need to be repeated within couple days after hydration at home in case the patient could not see his primary care or get the blood workup done as outpatient with his primary care he can come back to the ER to be evaluated The patient did not have any pain here in the ER to be treated and the CAT scan of the abdomen pelvis without contrast showed that the patient have constipation no other acute pathology was detected The patient was instructed about the importance of start taking MiraLAX she was provided with a prescription of The patient to follow-up with the primary care within 2 to 3 days and to come back to the ER in case of any worsening of the current symptoms or any new symptoms or concerns Lab Data Labs: Lab Results 05/21/25 Range/Units 16:28 WBC 12.4 H (4.0-11.0) 10^3/uL RBC 4.61 L (4.70-6.10) 10^6/uL Hgb 13.4 L (14.0-18.0) g/dL Hct 41.7 L (42.0-54.0) % MCV 90.5 (80.0-94.0) fL MCH 29.1 (25.9-34.0) pg MCHC 32.1 (29.9-35.2) g/dL RDW 15.4 H (11.0-15.0) % Plt Count 157 (150-450) 10^3/uL MPV 13.0 (9.5-13.5) fL Neut % (Auto) 56.8 (43.0-75.0) % Lymph % (Auto) 31.3 (20.5-60.0) % [place] % (Auto) 6.1 (1.7-12.0) % Eos % (Auto) 4.6 (0.9-7.0) % Baso % (Auto) 0.7 (0.2-2.0) % Neut # (Auto) 7.0 H (1.4-6.5) 10^3/uL Lymph # (Auto) 3.9 H (1.2-3.8) 10^3/uL [place] # (Auto) 0.8 (0.3-0.8) 10^3/uL Eos # (Auto) 0.6 (0.0-0.7) 10^3/uL Baso # (Auto) 0.1 (0.0-0.1) 10^3/uL Abs Immat Gran (auto) 0.06 H (0.00-0.03) 10^3/uL Imm/Tot Granulo (auto) 0.5 (0.0-0.5) % Sodium 144 (136-145) mmol/L Potassium 3.5 (3.5-5.1) mmol/L Chloride 108 H (98-107) mmol/L Carbon Dioxide 22.3 (21.0-32.0) mmol/L Anion Gap 17.2 BUN 18.0 (7.0-18.0) mg/dL Creatinine 1.89 H (0.70-1.30) mg/dL Est GFR ( Amer) 43 L (>=60 mL/min/1.73m^2) Est GFR (Non-Af Amer) 35 L (>=60 mL/min/1.73m^2) BUN/Creatinine Ratio 9.5 Glucose 125 H (74-106) mg/dL Calcium 8.8 (8.5-10.1) mg/dL Total Bilirubin 0.4 (0.2-1.0) mg/dL AST 25 (15-37) U/L ALT 35 (16-63) U/L Alkaline Phosphatase 103 (46-116) U/L Troponin I High Sens 12.8 (4.0-76.1) pg/mL Total Protein 7.0 (6.4-8.2) g/dL Albumin 3.2 L (3.4-5.0) g/dL Globulin 3.8 g/dL Albumin/Globulin Ratio 0.8 Lipase 22.0 (16.0-77.0) U/L Discharge Plan Discharge Chief Complaint: Abdominal Pain Clinical Impression: Abdominal pain, Constipation, SINA (acute kidney injury) Patient Disposition: Home, Self-Care Time of Disposition Decision: 18:17 Condition: Good Mode of Transportation: Private Vehicle Prescriptions / Home Meds: New polyethylene glycol 3350 [Miralax] 17 gram/dose powder 17 g PO DAILY PRN (Reason: constipation) Qty: 119 0RF Rx Instructions: DONT USE for more than a week No Action amlodipine 5 mg tablet 5 mg PO DAILY cholecalciferol (vitamin D3) 50 mcg (2,000 unit) capsule 100 mcg PO DAILY clopidogrel 75 mg tablet 75 mg PO DAILY esomeprazole magnesium 40 mg capsule,delayed release(DR/EC) 40 mg PO Q12H ferrous sulfate [FeroSul] 325 mg (65 mg iron) tablet 325 mg PO DAILY hydrocodone-acetaminophen 5-325 mg tablet 1 tab PO Q6H PRN (Reason: pain) metformin 500 mg tablet extended release 24 hr 500 mg PO BID metoprolol succinate 25 mg tablet extended release 24 hr 25 mg PO DAILY paroxetine HCl 20 mg tablet 20 mg PO DAILY polyethylene glycol 3350 [ClearLax] 17 gram/dose powder 17 g PO DAILY potassium chloride 10 mEq capsule, extended release 10 meq PO DAILY rosuvastatin 20 mg tablet 20 mg PO DAILY tolterodine 2 mg capsule,extended release 24hr 2 mg PO .three times per week Rx Instructions: mon/wed/fri valsartan 160 mg tablet 160 mg PO BID Print Language: Occitan Instructions: Constipation (DC), Acute Kidney Injury (DC) Additional Instructions: Please make sure you take Tylenol for the pain as most of the medication will either exacerbate the constipation or cause some kidney injury And the right now make sure you follow-up with your primary care within few days to repeat the kidney function after hydrating well at home Referrals: Mk Nichole MD [Primary Care Provider, Family Practice] - 1 week Discharge Date/Time: 05/21/25 18:55
[2025-05-21] MEDS: 0.9 % SODIUM CHLORIDE 1,000 ML 500 ML IV (18:21)
== END 2025-05-21 18:55 | disposition home or self-care (01) ==
PROVIDERS: Emergency Provider Emergency Medicine; PCP Family Medicine
DX: K59.00 Constipation, unspecified (principal); N17.9 Acute kidney failure, unspecified; R10.11 Right upper quadrant pain; Z90.49 Acquired absence of other specified parts of digestive tract; E86.0 Dehydration
CPT/HCPCS: 36415; 74176; 80053; 83690; 84484; 85025; 93005; 99285

== ENCOUNTER 2025-06-20 15:04 | Outpatient (OUT) | payer MEDICARE, SELFPAY ==
--- OUTSIDE RECORDS SUMMARY | 2025-06-20 15:09 | XMS_ITS | Clinical Summary ---
Author Organization [facility] Address [address] [place], [place] [id number] Care Team Providers Care Technical Photographer Name Role Phone Mk Nichole MD Primary Care Provider [phone] Social History Tobacco UseTypesPacks/DayYears UsedDateSmoking Tobacco: Never AssessedSex and Gender InformationValueDate RecordedSex Assigned at BirthNot on fileLegal Sex Male02/01/2024 9:29 AM EDTGender IdentityNot on fileSexual OrientationNot on file Plan of Treatment Not on file Care Teams Team MemberRelationshipSpecialtyStart DateEnd Date Mk Nichole MD [address] [place] [address] PCP - GeneralFamily Medicine02/01/24
--- OUTSIDE RECORDS SUMMARY | 2025-06-20 15:09 | XMS_ITS | Clinical Summary ---
Author Organization [facility] Address [address] [place] [address] Phone Care Team Providers Care Electrician Control Equipment Name Role Phone Mk Nichole MD Primary Care Provider + Lesia Rhodes MD Unavailable Allergies Active AllergyReactionsCriticalityNoted DateCommentsCodeinePalpitationsLow 04/20/20238765YfjuxwrwlSpjwfuzcVqm39/23/8593PgxdnvpapnOcgbrPpga02/23/2024 Suicidal ideation Medications MedicationSigDispense QuantityRefillsLast FilledStart DateEnd DateStatus cholecalciferol (Vitamin D-3) 50 MCG (1999) tablet Take 2 tablets (100 mcg) by mouth once daily.05/25/2022ctive esomeprazole (NexIUM) [address] capsule Take 1 capsule (40 mg) by mouth 2 times a day.09/25/2022ctive FeroSuL 325 mg (65 mg iron) tablet Take 1 tablet by mouth once daily.10/23/2022ctive HYDROcodone-acetaminophen ([place]) 5-325 mg tablet Take 1 tablet by [...] mouth 2 times a day. 180 tablet 4:58 PM EST5Active metoprolol succinate XL (Toprol-XL) 25 mg 24 hr tablet Indications:Essential hypertensionTake 1 tablet (25 mg) by mouth once daily. Do not crush or chew. 90 tablet 4:58 PM ESTctive clopidogrel (Plavix) 75 mg tablet Indications:Status post non-ST elevation myocardial infarction (NSTEMI)Take 1 tablet (75 mg) by mouth once daily. 90 tablet 3:44 PM EDT5Active potassium chloride ER (Micro-K) 10 mEq ER capsule Indications:Two-vessel coronary artery diseaseTake 1 capsule (10 mEq) by mouth once daily. 90 capsule 4:58 PM EST5Active nitroglycerin (Nitrostat) 0.4 mg SL tablet Indications:Two-vessel coronary artery disease,Abdominal aortic aneurysm (AAA), unspecified part, unspecified whether ruptured,Status post non-ST elevation myocardial infarction (NSTEMI)Place 1 tablet (0.4 mg) under the tongue every 5 minutes if needed for chest pain. May repeat dose every 5 minutes for up to 3 doses total. 25 tablet 6:10 PM EDT151ctive Active Problems ProblemNoted DateDiagnosed GughJuxllinict33/23/2024BMI 28.0-28.9,adult2023 Assessment & Plan (11/14/2024 1:31 PM EDT): Reviewed the merits of healthy lifestyle choices on overall cardiovascular health. AAA (abdominal aortic aneurysm)04/20/2023 Assessment & Plan (11/14/2024 1:28 PM EDT): Routinely with vascular August 2024 ultrasound stable infrarenal aneurysm, EVAR no leak Current ilshwg0004/20/2023 Assessment & Plan (11/14/2024 10:35 AM EDT): 1 pack per day In past: quit for 5 years 'cold turkey' Continued every day tobacco use. Have reviewed the negative cardiovascular impact of nicotine. Continues to decline pharmacological assistance. Type 2 diabetes mellitus without complication, without long-term current use of mzysplm6504/20/2023iminished pulses in lower mmhpoisyd98/03/5777Finkyxd30/03/2023 Essential ggywrpkgzded07/03/2023 Assessment & Plan (11/14/2024 1:28 PM EDT): Optimal in office Wfsijhr4304/20/20234410Rxgumpdgrfotqx83/03/2023 Assessment & Plan (11/14/2024 1:28 PM EDT): High intensity statin We will check annual labs Old posterior myocardial wfoypvubju84/03/2023Status post non-ST elevation myocardial infarction (NSTEMI)04/20/2023Two-vessel coronary [...] less than 4 METS without concerning symptoms Qbftxcfauusxfdlybhb13/03/2023VD (peripheral vascular disease)04/20/2023 Resolved Problems ProblemNoted DateDiagnosed DateResolved DateChronic obstructive pulmonary /3549Obuebvxbbl33/03/202304/ Encounters DateTypeDepartmentCare QtwoCwkrbacotye35/14/2025Telephone [address] [place] [phone] Inga Villatoro LPN 05/16/2025 10:40 AM EDTOffice Visit [address] [place] [phone] Bonifacio Stern DO Two-vessel coronary artery disease; Abdominal aortic aneurysm (AAA), unspecified part, unspecified whether ruptured; Essential hypertension; Mixed hyperlipidemia; Status post non-ST elevation myocardial infarction (NSTEMI); Type 2 diabetes mellitus without complication, without long-term current use of insulin (Multi); BMI 28.0-28.9,adult; Current smoker Discharge Disposition: Home05/16/2025Travelfrom Last 3 Months Immunizations ImmunizationAdministration DatesNext DueFlu vaccine, quadrivalent, recombinant, preservative free, adult (FLUBLOK)07/02/2022Influenza, Pxlffblwcfg32/01/2018, 04/18/2016,05/19/2015,05/19/2014,07/19/2012,07/19/2010Influenza, injectable, ddszriuknwee95/10/2014Pfizer COVID-19 vaccine, bivalent, age 12 years and [...] 0.6 oz pure alcohol)PHQ-2AnswerDate RecordedPatient Health Questionnaire-2 Dwdfq712 Sex and Gender InformationValueDate RecordedSex Assigned at BirthNot on file Legal HupEtdk49/26/2022 6:45 PM ESTGender IdentityNot on fileSexual Orientation Not on file Last Filed Vital Signs Vital SignReadingTime TakenCommentsBlood Nafqhmty837/8405/16/2025 10:59 AM EDT Mqyjr141305/16/2025 10:59 AM IBGLabngsxaxoe51.1 ??C (96.9 ??F)11/19/2022 1:07 PM EDTRespiratory Xscf340210/13/2022 1:11 PM EDTOxygen Qmmixldbki32%10/13/2022 1:11 PM EDTInhaled Oxygen Concentration--Bpbteh49.9 kg (174 lb)05/16/2025 10:59 AM YXSXtwqbs779.6 cm (5' 6 )05/16/2025 10:59 AM EDTBody Mass Index28.0805/16/2025 10:59 AM EDT Plan of Treatment DateTypeDepartmentCare Team (Latest Contact Info)Kivgugltwok30/27/2026 11:30 AM EDTOffice Visit [facility] [address] [phone] Cristina Calles, POLYSOMNOGRAPHER-HR RECRUITER [address] [facility], [facility] [address] [place] [address] Health MaintenanceDue DateLast DoneCommentsCT Eptgxdnpcclz09/24/1951iabetes: Hemoglobin A1C1950iabetes: Urine Protein Fclxihwgu84/24/1951FIT-DNA (Cologuard)1950FIT1950ipid Panel1950Medicare Annual Wellness Visit (AWV)11/09/19506127Djjhdbxjjezus41/24/1951MMR Vaccines (1 of 1 - Standard series)2Diabetes: Retinopathy Bphtzaryr96/24/1961Hepatitis C Screening 1968DTaP/Tdap/Td Vaccines (1 - Tdap)1972RSV High Risk: (Elderly (60+) or Population) (1 - Risk 50-74 years 1-dose series)2000 Zoster Vaccines (1 of 2)2000Abdominal Aortic Aneurysm (AAA) Screening 11/10/2015Pneumococcal Vaccine (2 of 2 - PCV), 07/19/2006 Influenza Vaccine (#1)/, 05/19/2018, 04/18/2016, Additional history existsCOVID-19 Vaccine (2 - season)/ Ucvkzsusmlj47/03/203407/4Colorectal Cancer Rrmlerimc26/03/2034Irritable Bowel PvidgurpTjbhrkrkyzqn13/01/2023, 10/05/2022HIB VaccinesAged OutNo longer eligible based on [...] to complete this topic Procedures Procedure NamePriorityDate/TimeAssociated QqhlwubqsUnycpdbsYKZOAuiligs34/01/2023 9:41 AM EDT from Last 3 Months or Most Recently Relevant to Health Maintenance Results * Endoscopic Retrograde Cholangiopancreatography (ERCP) (12/17/2022 9:41 AM EDT) Anatomical RegionLateralityModalityEndoscopySpecimen (Source)Anatomical Location / LateralityCollection Method / VolumeCollection TimeReceived Time 12/17/2022 9:41 AM EDT Narrative 12/17/2022 10:03 AM EDT Patient Name: Gopal Irving Procedure Date: 12/17/2022 9:41 AM Date of : 1950 Admit Type: Outpatient Site: [facility] 1 Ethnicity: Not or Race: White Attending MD: Alyssia Acuna MD, [id number] Procedure: ? ERCP Indications: ? Follow-up of bile duct stone(s), Follow-up of ? ascending cholangitis, Biliary stent removal Patient Profile: ? This is a 72 year old male. Refer to note in patient ? chart for documentation of history and physical. Providers: ? Alyssia Acuna MD (Doctor), Jeevan Mcgovern RN ? (Nurse), Balbina Schuler, Lumber Buyer Referring: ? Medicines: ? General Anesthesia Complications: [...] physician, the nurse, the ? anesthesiologist, the infrastructure technician and the tree trimming line technician ? in the procedure room. Mental [...] tolerated the procedure well. Findings: ? A skin washer film of the abdomen was obtained. Surgical clips, consistent ? with a previous cholecystectomy, were seen in the area of the right ? upper quadrant of the abdomen. A biliary stent was visible on the skin washer ? film. The esophagus was successfully intubated [...] Procedure Code(s): ? --- Professional --- ? 36221, Endoscopic retrograde cholangiopancreatography ? (ERCP); with removal of foreign body(s) or stent(s) ? from biliary/pancreatic duct(s) ? 74783, Endoscopic retrograde cholangiopancreatography ? (ERCP); with removal of calculi/debris from ? biliary/pancreatic duct(s) ? 90230, Endoscopic catheterization of the biliary ? ductal [...] ? K83.09, Other cholangitis CPT copyright 2021 [employer]. All rights reserved. The codes documented in this report are preliminary and upon caseworker intake review may be revised to meet current [...] of : 1950 Admit Type: Outpatient Site: [facility] 1 Ethnicity: Not or Race: White Attending MD: Alyssia Acuna MD, [id number] Procedure: ERCP Indications: Follow-up of bile duct stone(s), Follow-up of ascending cholangitis, Biliary stent removal Patient Profile: This is a 72 year old male. Refer to note inpatient chart for documentation of history and physical. Providers: Alyssia Acuna MD (Doctor), Jeevan Mcgovern RN (Nurse), Balbina Schuler, Lumber Buyer Referring: Medicines: General Anesthesia Complications: No immediate [...] the physician, the nurse, the anesthesiologist, the infrastructure technician and thetechnician in the procedure room. Mental [...] The patient tolerated the procedurewell. Findings: A skin washer film of the abdomen was obtained. Surgical [...] present medications. Procedure Code(s): --- Professional --- 96080, Endoscopic retrogradecholangiopancreatography (ERCP); with removal of foreign body(s) or stent(s) from biliary/pancreatic duct(s) 27187, Endoscopic retrogradecholangiopancreatography (ERCP); with removal of calculi/debris from biliary/pancreatic duct(s) 01807, Endoscopic catheterization of the biliary ductal system, radiological supervision and interpretation Diagnosis Code(s): --- Professional --- T85.590A, Other mechanical complication of bileduct prosthesis, initial encounter K80.30, Calculus of bile duct with cholangitis, unspecified, without obstruction Z46.59, Encounter for fitting and adjustment ofother gastrointestinal appliance and device K83.09, Other cholangitis CPT copyright 2021 [employer]. All rights reserved. The codes documented in this report are preliminary and upon caseworker intake reviewmay be revised to meet current compliance [...] Most Recently Relevant to Health Maintenance Insurance * Guarantor: Adelina Irving TypeRelation to PatientDate of Formerly [facility] CountyPhone Billing AddressFredonia [facility]/ZtsohrNuoa85 [address] [place] [address] Care Teams Team MemberRelationshipSpecialtyStart DateEnd Date Mk Nichole MD [address] [place] [address] PCP - GeneralFamily Medicine11/09/23 Lesia Rhodes MD [address] [address] IgtqauvQuaswjcnqsiegmqd89/1/24
[2025-06-20 15:35] LABS: Hematocrit 39.3 % (42.0-54.0); Hemoglobin 12.4 g/dL (14.0-18.0); Immature Granulocytes Abs Auto 0.06 10^3/uL (0.00-0.03); Immature Granulocytes Pct Auto 0.6 % (0.0-0.5); Lymphocytes Absolute Auto 3.1 10^3/uL (1.2-3.8); Mean Corpuscular HGB Conc 31.6 g/dL (29.9-35.2); Mean Corpuscular Hemoglobin 29.3 pg (25.9-34.0); Mean Corpuscular Volume 92.9 fL (80.0-94.0); Platelet Count 146 10^3/uL (150-450); Red Blood Count 4.23 10^6/uL (4.70-6.10); White Blood Count 10.4 10^3/uL (4.0-11.0)
[2025-06-20 16:01] LABS: Alanine Aminotransferase 28 U/L (16-63); Albumin Globulin Ratio 0.9; Albumin Level 3.1 g/dL (3.4-5.0); Alkaline Phosphatase 84 U/L (46-116); Anion Gap 9.9; Aspartate Amino Transferase 18 U/L (15-37); Blood Urea Nitrogen 12.0 mg/dL (7.0-18.0); Calcium 9.1 mg/dL (8.5-10.1); Carbon Dioxide 29.1 mmol/L (21.0-32.0); Chloride 109 mmol/L (98-107); Estimated GFR (African America >60 (>=60 mL/min/1.73m^2); Estimated GFR (Non-African Ame 53 (>=60 mL/min/1.73m^2); Globulin 3.4 g/dL; Glucose 127 mg/dL (74-106); Potassium 4.0 mmol/L (3.5-5.1); Sodium 144 mmol/L (136-145); Total Protein 6.5 g/dL (6.4-8.2)
== END 2025-06-20 15:05 | disposition home or self-care (01) ==
LOC: LAB 15:07
PROVIDERS: PCP Family Medicine; Visit Provider Family Medicine
DX: E11.65 Type 2 diabetes mellitus with hyperglycemia (principal); Z79.899 Other long term (current) drug therapy
CPT/HCPCS: 36415; 80053; 83036; 85025